=== PATIENT | male | born 1970 | race Hispanic/Latino ===

== ENCOUNTER 2017-01-12 06:02 | Inpatient (IN) | payer MEDICARE, MEDICAID ==
[2017-01-12 07:11] VITALS: BMI 20.9
[2017-01-12] MEDS ORDERED: Sodium Chloride 0.9% 1,000 ML IV STA (07:33)
--- NOTE | 2017-01-12 08:06 | ED PDOC ---
Arrival/HPI - General Chief Complaint: Abdominal Pain Time Seen by Provider: 01/12/17 06:03 Historian: Family (Sister) - History of Present Illness Narrative History of Present Illness (Text): 01/12/17 07:23 A 46 year old male, whose past medical history includes anemia, GERD, aspiration pneumonia, dyspepsia, and multiple abdominal surgery, is brought into the emergency department by sister. Sister notes early this morning, around 0400, when she came home from work the patient was in bed with a distended abdomen and vomit all over him. She notes patient did complaint of some pain last week so she was giving him soft food for the week. She denies any fever, change in bowel or other complaints at this time. PMD: Dr. Rey Time/Duration: 4-6 hours, Other Symptom Onset: Other Symptom Course: Unchanged Quality: Other Activities at Onset: Rest Context: Home Past Medical History - Provider Review Nursing Documentation Reviewed: Yes - Infectious Disease Hx of Infectious Diseases: None - Tetanus Immunization Tetanus Immunization: Unknown - Cardiac Hx Cardiac Disorders: Yes - Pulmonary Hx Respiratory Disorders: Yes Other/Comment: aspiration pneumonia - Neurological Hx Neurological Disorder: No - HEENT Hx HEENT Disorder: No - Renal Hx Renal Disorder: No - Endocrine/Metabolic Hx Endocrine Disorders: No - Hematological/Oncological Hx Blood Disorders: Yes Hx Anemia: Yes Hx Blood Transfusions: Yes Hx Blood Transfusion Reaction: (NOT KNOWN) - Integumentary Hx Dermatological Disorder: No Other/Comment: MULTIPLE SCARRING TO ABDOMINAL AREA FROM MULTIPLE ABDOMINAL SURGERIES - Musculoskeletal/Rheumatological Hx Musculoskeletal Disorders: No Hx Falls: No - Gastrointestinal Hx Gastrointestinal Disorders: Yes (post op gi lap for bowel obstruction) - Genitourinary/Gynecological Hx Genitourinary Disorders: No Hx Reproductive Disorders: No - Psychiatric Hx Psychophysiologic Disorder: Yes Hx Anxiety: Yes Hx Depression: Yes Hx Substance Use: No - Past Surgical History Past Surgical History: Non-Contributing - Surgical History Other/Comment: intestinal - Anesthesia Hx Anesthesia Reactions: No Hx Malignant Hyperthermia: No - Suicidal Assessment Feels Threatened In Home Enviroment: No Family/Social History - Physician Review Nursing Documentation Reviewed: Yes Family/Social History: Unknown Family HX Smoking Status: Never Smoked Hx Alcohol Use: No Hx Substance Use: No Hx Substance Use Treatment: No Allergies/Home Meds Allergies/Adverse Reactions: Allergies No Known Allergies Allergy (Verified 01/16/17 22:20) Review of Systems - Physician Review All systems were reviewed & negative as marked: Yes - Review of Systems Constitutional: absent: Fevers Gastrointestinal: Abdominal Pain, Vomiting, Other (distended abdomen). absent: Stool Changes Physical Exam Vital Signs Reviewed: Yes Vital Signs Temp Pulse Resp BP Pulse Ox 01/12/17 10:06 98.5 F 106 H 22 97/65 L 91 L 01/12/17 07:11 98.2 F 126 H 16 97/69 L 96 Temperature: Afebrile Blood Pressure: Hypotensive Pulse: Tachycardic Respiratory Rate: Normal Appearance: Positive for: Non-Toxic, Cachectic Pain Distress: None Mental Status: Positive for: Alert and Oriented X 3 - Systems Exam Head: Present: Atraumatic, Normocephalic Pupils: Present: PERRL Extroacular Muscles: Present: EOMI Conjunctiva: Present: Normal Mouth: Present: Moist Mucous Membranes Neck: Present: Normal Range of Motion Respiratory/Chest: Present: Clear to Auscultation, Good Air Exchange. No: Respiratory Distress, Accessory Muscle Use Cardiovascular: Present: Regular Rate and Rhythm, Normal S1, S2. No: Murmurs Abdomen: Present: Distention, Normal Bowel Sounds (tympanic ), Other (soft). No : Tenderness, Peritoneal Signs, Rebound, Guarding Back: Present: Normal Inspection Upper Extremity: Present: Normal Inspection. No: Cyanosis, Edema Lower Extremity: Present: Normal Inspection. No: Edema Neurological: Present: GCS=15, CN II-XII Intact, Speech Normal Skin: Present: Warm, Dry, Pale. No: Rashes, Normal Color Psychiatric: Present: Alert, Oriented x 3, Normal Insight, Normal Concentration Medical Decision Making ED Course and Treatment: EKG: Ordered, reviewed, and independently interpreted the EKG. Rate : 121 BPM Rhythm : Sinus tachycardia Interpretation : Normal axis, no STEMI 01/12/17 10:[address] Rey, who is aware and agrees with the plan to admit the patient to Med/Surg for a small bowel obstruction. Ginette Henson who eval the pt in the ER I have discussed the results and plan with the patient and his sister, who expresses understanding. Patient and sister given the opportunity to ask question, all questions were answered and there is agreement with the plan to be admitted to the hospital. 01/12/17 11:10 Abdomen X-ray: Creator : Florian Jonhson MD FINDINGS: BOWEL: Multiple severely dilated loops of small bowel are seen the largest measuring 7.9 cm. Findings are consistent with small bowel obstruction. There is a fluid level in the stomach. The colon is mildly dilated BONES: Normal. OTHER FINDINGS: None. IMPRESSION: Small bowel obstruction - Lab Interpretations Lab Results: 01/12/17 08:00 01/12/17 08:00 Lab Results 01/12/17 09:20: Blood Type O NEGATIVE, Antibody Screen Negative, Crossmatch See Detail, BBK History Checked Patient has bt 01/12/17 08:00: WBC 8.9 D, RBC 4.35, Hgb 13.4 L, Hct 40.4 L, MCV 92.9, MCH 30.8 , MCHC 33.2, RDW 15.0 H, Plt Count 329, MPV 9.2, Gran % 71.9 H, Lymph % (Auto) 16.8 L, [place] % (Auto) 10.9 H, Eos % (Auto) 0.2 L, Baso % (Auto) 0.2, Gran # 6.38 , Lymph # 1.5, [place] # 1.0 H, Eos # 0.0, Baso # 0.02, pO2 110 H, VBG pH 7.33, VBG pCO2 38.0 L, VBG HCO3 20.0 L, VBG Total CO2 21.2 L, VBG O2 Sat (Calc) 91.5 H , VBG Base Excess -5.4 L, VBG Potassium 4.3, Glucose 88, Lactate 1.4, FiO2 21.0 , Sodium 130.0 L, Potassium 4.1, Chloride 104.0, Carbon Dioxide 19 L, Anion Gap 12, BUN 24 H, Creatinine 0.8, Est GFR ( Amer) > 60, Est GFR (Non-Af Amer ) > 60, Random Glucose 86, Calcium 7.5 L, Total Bilirubin 0.9, AST 29, ALT 49, Alkaline Phosphatase 108, Troponin I 0.04 D, Total Protein 5.1 L, Albumin 2.1 L , Globulin 3.0, Albumin/Globulin Ratio 0.7 L, Venous Blood Potassium 4.3 I have reviewed the lab results: Yes - RAD Interpretation Radiology Orders: 01/12/17 07:33 obstructive series [ABD 2 VIEWS (FLAT/UP OR DECUB)] [RAD] Stat - Medication Orders Current Medication Orders: Discontinued Medications Benzocaine/Butamben/Tetracaine HCl (Cetacaine 14%-2%-2% 56 Gm) 1 spry TOP STAT STA Stop: 01/12/17 10:35 Last Admin: 01/12/17 10:59 Dose: 1 SPRY Calcium/Vitamin D (Oscal-D 250 Mg-125 Units Tab) 1 tab PO DAILY ETHAN Last Admin: 01/16/17 09:05 Dose: 1 TAB Home Med (*Refrigerator Open) Confirm Administered Dose 1 unit XX .STK-MED ONE Stop: 01/12/17 07:04 Home Med (*Refrigerator Open) Confirm Administered Dose 1 unit XX .STK-MED ONE Stop: 01/12/17 07:45 Home Med (*Refrigerator Open) Confirm Administered Dose 1 unit XX .STK-MED ONE Stop: 01/12/17 08:00 Home Med (*Refrigerator Open) Confirm Administered Dose 1 unit XX .STK-MED ONE Stop: 01/12/17 18:02 Home Med (*Refrigerator Open) Confirm Administered Dose 1 unit XX .STK-MED ONE Stop: 01/13/17 18:58 Home Med (*Refrigerator Open) Confirm Administered Dose 1 unit XX .STK-MED ONE Stop: 01/15/17 06:12 Home Med (*Refrigerator Open) Confirm Administered Dose 1 unit XX .STK-MED ONE Stop: 01/16/17 05:57 Hydromorphone HCl (Dilaudid) 0.5 mg IVP STAT STA Stop: 01/12/17 22:08 Last Admin: 01/12/17 22:17 Dose: 0.5 MG MAR Pain Assessment Document 01/12/17 22:17 BN (Rec: 01/12/17 22:18 BN [facility] [id number] [place] Pain Reassessment Is this a pain reassessment? No Sleep Is patient sleeping during reassessment? No Presence of Pain Presence of Pain Yes Pain Scale Used Pain Scale Used Numeric Location Pain Location Body Site Abdomen Description Description Constant Intensity of Pain at present 10 Pain Behavior Moaning Restlessness Facial Grimacing Alleviating Factors/Management Medication Techniques Alleviating Factors Medication IVP Administration Document 01/12/17 22:17 BN (Rec: 01/12/17 22:18 BN [facility] [id number]) Charges for Administration # of IVP Administrations 1 Re-Assess: DONTAE Pain Assessment Document 01/12/17 23:17 BN (Rec: 01/13/17 01:06 BN [facility] [id number]) Pain Reassessment Is this a pain reassessment? Yes Sleep Is patient sleeping during reassessment? Yes Sodium Chloride (Sodium Chloride 0.9%) 1,000 mls @ 999 mls/hr IV .Q1H1M STA Stop: 01/12/17 08:33 Last Admin: 01/12/17 08:14 Dose: 999 MLS/HR eMAR Start Stop Document 01/12/17 08:14 (Rec: 01/12/17 08:14 [id number]) Intravenous Solution Start Date 01/12/17 Start Time 08:14 Sodium Chloride (Sodium Chloride 0.9%) 1,000 mls @ 100 mls/hr IV .Q10H ETHAN Last Admin: 01/14/17 05:44 Dose: 100 MLS/HR eMAR Start Stop Document 01/14/17 05:44 BN (Rec: 01/14/17 05:44 BN [id number]) Intravenous Solution Start Date 01/14/17 Start Time 05:44 Potassium Chloride (Potassium Chloride 10 Meq/100 Ml) 100 mls @ 100 mls/hr IVPB Q2H ETHAN Stop: 01/14/17 13:29 Last Admin: 01/14/17 18:03 Dose: 100 MLS/HR eMAR Start Stop Document 01/14/17 18:03 DSZ (Rec: 01/14/17 19:04 DSZ [id number]) Intravenous Solution Start Date 01/14/17 Start Time 18:00 Dextrose/Sodium Chloride (Dextrose 5%/0.45% Ns 1000 Ml) 1,000 mls @ 100 mls/hr IV .Q10H ETHAN Last Admin: 01/15/17 11:32 Dose: 100 MLS/HR eMAR Start Stop Document 01/15/17 11:32 MB (Rec: 01/15/17 11:32 MB [facility] [id number]) Intravenous Solution Start Date 01/15/17 Start Time 11:32 End Date 01/15/17 End time 21:32 Total Infusion Time 600 Potassium Chloride (Potassium Chloride 20 Meq/100 Ml) 100 mls @ 50 mls/hr IVPB Q2 ETHAN Stop: 01/15/17 13:59 Last Admin: 01/15/17 13:11 Dose: 50 MLS/HR eMAR Start Stop Document 01/15/17 13:11 MB (Rec: 01/15/17 13:11 MB [id number]) Intravenous Solution Start Date 01/15/17 Start Time 13:11 End Date 01/15/17 End time 14:11 Total Infusion Time 60 Potassium Chloride/Dextrose (Potassium Chl 40 Meq In D5w) 1,000 mls @ 30 mls/ hr IV .Q24H ETHAN Last Admin: 01/16/17 09:05 Dose: 30 MLS/HR eMAR Start Stop Document 01/16/17 09:05 MJO (Rec: 01/16/17 09:[address]) Intravenous Solution Start Date 01/16/17 Start Time 09:05 Lidocaine HCl (Xylocaine 2% (Uro-Jet)) 1 ea TOP ONCE ONE Stop: 01/12/17 10:34 Last Admin: 01/12/17 12:14 Dose: 1 EACH Lidocaine HCl (Xylocaine 2%) Confirm Administered Dose 1 ea .ROUTE .STK-MED ONE Stop: 01/13/17 17:29 Metoclopramide HCl (Reglan) 5 mg PO ACHS [facility] Last Admin: 01/16/17 16:33 Dose: 5 MG Ondansetron HCl (Zofran Inj) 4 mg IVP ONCE ONE Stop: 01/12/17 07:34 Last Admin: 01/12/17 08:14 Dose: 4 MG IVP Administration Document 01/12/17 08:14 (Rec: 01/12/17 08:14 [id number]) Charges for Administration # of IVP Administrations 1 Ondansetron HCl (Zofran Inj) 4 mg IVP Q6 PRN PRN Reason: Nausea/Vomiting Pantoprazole Sodium (Protonix Inj) 40 mg IVP Q12 [facility] Last Admin: 01/16/17 09:05 Dose: 40 MG IVP Administration Document 01/16/17 09:05 MJO (Rec: 01/16/17 09:05 MJO [id number]) Charges for Administration # of IVP Administrations 1 - Scribe Statement The provider has reviewed the documentation as recorded by the Scribe Dimpal Bocanegra Provider Scribe Attestation: All medical record entries made by the Sindy were at my direction and personally dictated by me. I have reviewed the chart and agree that the record accurately reflects my personal performance of the history, physical exam, medical decision making, and the department course for this patient. I have also personally directed, reviewed, and agree with the discharge instructions and disposition. Disposition/Present on Arrival - Present on Arrival Any Indicators Present on Arrival: No History of DVT/PE: No History of Uncontrolled Diabetes: No Urinary Catheter: No History of Decub. Ulcer: No History Surgical Site Infection Following: None - Disposition Have Diagnosis and Disposition been Completed?: Yes Diagnosis: Small bowel obstruction Disposition: HOSPITALIZED Disposition Time: 10:32 Condition: STABLE
[2017-01-12 08:17] LABS: ADD MANUAL DIFF? NO
[2017-01-12 08:29] LABS: BASO # 0.02 K/mm3 (0.0-2.0); BASO % 0.2 % (0.0-3.0); EOS % 0.2 % (1.5-5.0); GRAN # 6.38 (1.4-6.5); GRAN % 71.9 % (50.0-68.0); HEMATOCRIT 40.4 % (42.0-52.0); LYMPH # 1.5 (1.2-3.4); LYMPH % 16.8 % (22.0-35.0); MEAN CELL VOLUME 92.9 fL (80.0-105.0); MEAN CORPUSCULAR HEMOGLOBIN 30.8 pg (25.0-35.0); MEAN CORPUSCULAR HGB CONC 33.2 g/dl (31.0-37.0); MEAN PLATELET VOLUME 9.2 fl (7.0-11.0); MONO % 10.9 % (1.0-6.0); PLATELET COUNT 329 10^3/uL (120.0-450.0); WHITE BLOOD COUNT 8.9 10^3/ul (4.5-11.0)
[2017-01-12 08:33] LABS: ALB/GLOB RATIO 0.7 (1.1-1.8); ALKALINE PHOSPHATASE 108 U/L (38-133); ALT/SGPT 49 U/L (7-56); AST/SGOT 29 U/L (15-59); BILIRUBIN,TOTAL 0.9 mg/dL (0.2-1.3); BLOOD UREA NITROGEN 24 mg/dL (7-21); CALCIUM 7.5 mg/dL (8.4-10.5); CARBON DIOXIDE 19 mmol/L (21-33); CHLORIDE 104 mmol/L (95-110); GFR AFRICAN-AMERICAN > 60; GLUCOSE,RANDOM 86 mg/dL (70-110); POTASSIUM 4.1 mmol/L (3.6-5.0); SODIUM 131 mmol/L (132-148); TOTAL PROTEIN 5.1 g/dL (5.8-8.3); VENOUS BLOOD GAS BASE EXCESS -5.4 mmol/L (0.0-2.0); VENOUS BLOOD PH 7.33 (7.32-7.43)
--- NOTE | 2017-01-12 08:43 | CP.PCM.CON ---
History of Present Illness - History of Present Illness History of Present Illness: Consult Surgery Note for Dr. Henson HPI: 46 yo M w/ PMHx of multiple abdominal sx and anemia, GERD, aspiration pneumonia, presents with several days of abdominal pain, and N/V. Pt is a poor historian, giving inconsistent one word answers to questions intermittently, and not oriented to time. As per ED note, sister reported abdominal pain complaint for one week, for which pt was given a soft food diet, and at around 400 today, pt had distended abdomen with vomit. Denied fever, BM changes, SOB. Pt had been through similar episodes before. PMD: Dr. Rey PMHx: anemia, GERD, aspiration pneumonia PSxhx: ileoanal anastomosis, colon and sm bowel resection (08/2016), small bowel resection (03/2013), subtotal colectomy Allergies: NKDA Social: denies ETOH, smoking, and illicit drugs. Lives with sister. Review of Systems - Constitutional Constitutional: absent: Fever - Cardiovascular Cardiovascular: absent: Chest Pain, Dyspnea - Respiratory Respiratory: absent: Dyspnea - Gastrointestinal Gastrointestinal: Abdominal Pain Past Patient History - Infectious Disease Hx of Infectious Diseases: None - Tetanus Immunizations Tetanus Immunization: Unknown - Past Social History Smoking Status: Never Smoked - CARDIAC Hx Cardiac Disorders: Yes - PULMONARY Hx Respiratory Disorders: Yes Other/Comment: aspiration pneumonia - NEUROLOGICAL Hx Neurological Disorder: No - HEENT Hx HEENT Problems: No - RENAL Hx Chronic Kidney Disease: No - ENDOCRINE/METABOLIC Hx Endocrine Disorders: No - HEMATOLOGICAL/ONCOLOGICAL Hx Blood Disorders: Yes Hx Anemia: Yes Hx Blood Transfusions: Yes Hx Blood Transfusion Reaction: (NOT KNOWN) - INTEGUMENTARY Hx Dermatological Problems: No Other/Comment: MULTIPLE SCARRING TO ABDOMINAL AREA FROM MULTIPLE ABDOMINAL SURGERIES - MUSCULOSKELETAL/RHEUMATOLOGICAL Hx Musculoskeletal Disorders: No Hx Falls: No - GASTROINTESTINAL Hx Gastrointestinal Disorders: Yes (post op gi lap for bowel obstruction) - GENITOURINARY/GYNECOLOGICAL Hx Genitourinary Disorders: No Hx Reproductive Disorders: No - PSYCHIATRIC Hx Psychophysiologic Disorder: Yes Hx Anxiety: Yes Hx Depression: Yes Hx Substance Use: No - SURGICAL HISTORY Other/Comment: intestinal - ANESTHESIA Hx Anesthesia Reactions: No Hx Malignant Hyperthermia: No Meds Allergies/Adverse Reactions: Allergies Allergy/AdvReac Type Severity Reaction Status Date / Time No Known Allergies Allergy Verified 01/12/17 07:11 Physical Exam - Head Exam Head Exam: NORMAL INSPECTION - Eye Exam Eye Exam: EOMI - Respiratory Exam Respiratory Exam: Clear to Auscultation Bilateral, NORMAL BREATHING PATTERN - Cardiovascular Exam Cardiovascular Exam: Tachycardia, RRR - GI/Abdominal Exam GI & Abdominal Exam: Diminished Bowel Sounds, Distended, Soft. absent: Tenderness Additional comments: surgical abdominal scar - Neurological Exam Neurological exam: Alert Additional comments: oriented to self and place, not time - Skin Skin Exam: Intact, Warm Results - Vital Signs Recent Vital Signs: Last Vital Signs Temp 98.2 F 01/12/17 07:11 Pulse 126 H 01/12/17 07:11 Resp 16 01/12/17 07:11 BP 97/69 L 01/12/17 07:11 Pulse Ox 96 01/12/17 07:11 - Labs Result Diagrams: 01/12/17 08:00 01/12/17 08:00 Labs: Laboratory Results - last 24 hr 01/12/17 08:00 WBC 8.9 D RBC 4.35 Hgb 13.4 L Hct 40.4 L MCV 92.9 MCH 30.8 MCHC 33.2 RDW 15.0 H Plt Count 329 MPV 9.2 Gran % 71.9 H Lymph % (Auto) 16.8 L [place] % (Auto) 10.9 H Eos % (Auto) 0.2 L Baso % (Auto) 0.2 Gran # 6.38 Lymph # 1.5 [place] # 1.0 H Eos # 0.0 Baso # 0.02 Assessment & Plan - Assessment and Plan (Free Text) Plan: 46 yo M w/ PMHx of multiple abdominal sx and GERD, presents with abdominal pain w/N/V Abdominal obstructive series: multiple severely dilated loops of small bowel IVF NPO protonix advise sigmoidoscopy to GI d/w Dr. Henson
[2017-01-12 08:46] LABS: TROPONIN I 0.04 ng/mL
[2017-01-12] MEDS ORDERED: Lidocaine 2% Jelly (Uro-Jet) TOP ONE (10:33)
[2017-01-12] MEDS ORDERED: Lidocaine 4% 50 mL Topical Sol (OR USE) TOP STA (10:33)
[2017-01-12] MEDS ORDERED: Benzocaine/Butamben/Tetracai 14-2-2% TOP Spray TOP STA (10:34)
--- NOTE | 2017-01-12 11:09 | RAD ---
HISTORY: abd pain COMPARISON: No prior. FINDINGS: BOWEL: Multiple severely dilated loops of small bowel are seen the largest measuring 7.9 cm. Findings are consistent with small bowel obstruction. There is a fluid level in the stomach. The colon is mildly dilated BONES: Normal. OTHER FINDINGS: None. IMPRESSION: Small bowel obstruction
--- NOTE | 2017-01-12 12:06 | CP.PCM.PCO ---
Physician Communication Note - Physician Communication Note Physician Communication Note: Dx:Partial Ileo-sigmoid obstr/ventral hernia-Need GI Rval(Sigmoidoscopy)
--- NOTE | 2017-01-12 17:43 | CON ---
DATE: 01/12/2017 Seen and examined at the bedside earlier this afternoon. The chart was reviewed. REQUEST FOR CONSULT: Small-bowel obstruction. HISTORY OF PRESENT ILLNESS: This is a 46-year-old male with a past medical history of recurrent harvey l obstruction, multiple abdominal surgeries. Recently had a laparotomy with colon and small-bowel re section with ileoanal end-to-end anastomosis for colonic obstruction. He has a history of developmental delay. He came to the hospital with complaints of abdominal pain f or the past several days. His sister is currently at the bedside and reports that the patient was pat ving abdominal pain for 1 week. The patient was moving his bowels according to his sister, but abdom en was becoming distended and having abdominal pain, nausea and vomiting. She said she came home fro m work around 4:30 p.m. The patient was in bed and saw that he had vomited. No complaints of any fe russell or chills. The patient is a poor historian so information was obtained from the patient's chart and his sister at the bedside and nursing staff. The sister states that the patient has been consumi ng soft foods for the week. PAST MEDICAL HISTORY: Peptic ulcer disease, developmental delay, GERD, chronic anemia, gastric bypas s, colostomy with ileostomy with reversal and multiple exploratory laparoscopies, aspiration pneumoni a, recent surgery was ileoanal anastomosis colon and small-bowel resection on 08/2016. He also had a small bowel resection in 2012 and subtotal colectomy. FAMILY HISTORY: Noncontributory at this time. ALLERGIES: No known drug allergies. SOCIAL HISTORY: Denies EtOH, substance abuse or smoking. MEDICATIONS: Reviewed as per MAR. REVIEW OF SYSTEMS: Systems were reviewed with positive findings, see HPI. VITAL SIGNS: His temperature is 98.5, blood pressure is 97/65, pulse 106, respirations 22. LABORATORY: WBC is 8.9, 13.4, hematocrit is 40.4, platelets is 329. Sodium 131, K is 4.1, BUN is 24, creatinine is 0.8. Total bilirubin 0.9, AST 29, ALT 49 and alkaline phosphatase is 108. DIAGNOSTICS: The patient had an abdominal x-ray on admission and it shows severely dilated loops of the small bowel, largest measuring 7.9 cm. Findings are consistent with small-bowel obstruction. Th ere is a fluid level in the stomach. The colon is mildly dilated. Impression: Small-bowel obstruct ion. PHYSICAL EXAMINATION: HEENT: Sclerae are anicteric. Nares: Patient has NG tube. NECK: Supple. CARDIAC: S1, S2. LUNGS: Clear. ABDOMEN: With hypoactive bowel sounds, mildly distended with diffuse tenderness. No rebound or guar ding. EXTREMITIES: Positive pedal pulses, no edema. NEUROLOGIC: The patient is awake and alert. ASSESSMENT: This is a 46-year-old male with history of multiple abdominal surgery and recurrent smal l-bowel obstruction, came to the Emergency Room with complaints of nausea, vomiting and abdominal torrie n, status post x-ray reporting small-bowel obstruction. Other comorbidities are chronic anemia, his hemoglobin is stable right now, no overt GI bleed and developmental delay. PLAN: Continue NG tube to low intermittent suction. Monitor I and O. Continue IV fluids for hydrat ion and continue GI prophylaxis. He is on Protonix IV q. 12. Continue surgical followup and ? flex sigmoidoscopy. Thank you for this consult and for allowing us to participate in your patient's care. We will make anibal bynum recommendations based upon patient's clinical course. The patient was seen and case discussed with Dr. Davies. Samantha MONTES cc: [id number] TT: 01/12/2017 17:42:42 Confirmation # [id number] Dictation # [id number] tatiana
[2017-01-12 17:44] LABS: URINE BILIRUBIN SMALL (NEGATIVE); URINE BLOOD NEGATIVE (NEGATIVE); URINE GLUCOSE (UA) NEGATIVE (NEGATIVE); URINE KETONE 15 mg/dL (NEGATIVE); URINE LEUKOCYTE ESTERASE NEGATIVE Leu/uL (NEGATIVE); URINE PROTEIN TRACE mg/dL (<30 mg/dL)
[2017-01-12 18:16] LABS: URINE APPEARANCE CLEAR (CLEAR); URINE COLOR DARK YELLOW (YELLOW)
[2017-01-12 18:52] LABS: URINE BACTERIA LARGE (NEG); URINE OTHER CRYSTALS BILI /hpf; URINE RBC 0 - 2 /hpf (0-2); URINE WBC 0 - 2 /hpf (0-6)
--- NOTE | 2017-01-12 19:00 | CARD ---
APPROVED REPORT EKG Measurement Heart [id number] <Conclusion> Sinus tachycardia Septal infarct, age undetermined Lateral infarct, age undetermined Inferior infarct, age undetermined Abnormal ECG
[2017-01-12] MEDS ORDERED: HYDROmorphone 0.5 mg/0.5 ml ISec IVP STA (22:07)
--- NOTE | 2017-01-13 09:12 | CP.PCM.PN ---
Subjective - Date & Time of Evaluation Date of Evaluation: 01/13/17 Time of Evaluation: 07:00 - Subjective Subjective: SURGERY NOTE FOR DR. DMITRIY HENSON Pt seen and evaluated at the bedside. Pt has c/o of abdominal pain, but unable to conduct review of systems due to pt's inconsistent answers. NG tube in and afebrile overnight. Objective - Vital Signs/Intake and Output Vital Signs (last 24 hours): Temp Pulse Resp BP Pulse Ox 97.3 F L 116 H 20 107/62 94 L 01/13/17 07:30 01/13/17 07:30 01/13/17 07:30 01/13/17 07:30 01/13/17 07:30 Intake and Output: 01/13/17 01/13/17 06:59 18:59 Intake Total 0 2400 Output Total 0 0 Balance 0 2400 - Medications Medications: Current Medications Sodium Chloride (Sodium Chloride 0.9%) 1,000 mls @ 100 mls/hr IV .Q10H ETHAN Ondansetron HCl (Zofran Inj) 4 mg IVP Q6 PRN PRN Reason: Nausea/Vomiting Pantoprazole Sodium (Protonix Inj) 40 mg IVP Q12 ETHAN Last Admin: 01/12/17 21:10 Dose: 40 mg - Additional Findings Additional findings: - Head Exam Head Exam: NORMAL INSPECTION, NG tube in place - Eye Exam Eye Exam: EOMI - Respiratory Exam Respiratory Exam: Clear to Auscultation Bilateral, NORMAL BREATHING PATTERN - Cardiovascular Exam Cardiovascular Exam: Tachycardia, RRR - GI/Abdominal Exam GI & Abdominal Exam: Diminished Bowel Sounds, Distended, Soft. absent: Tenderness Additional comments: surgical abdominal scar - Neurological Exam Neurological exam: Alert Additional comments: oriented to self and place, not time - Skin Skin Exam: Intact, Warm Assessment and Plan - Assessment and Plan (Free Text) Assessment: 46 yo M w/ PMHx of multiple abdominal sx and GERD, initially presents with abdominal pain w/N/V. Abdominal obstructive series: multiple severely dilated loops of small bowel. Likely partial small bowel obstruction. Plan: NG tube draining 700 cc of dark brown fluid since 9AM IVF NPO protonix Flex sigmoidoscopy this PM to be d/w Dr. Henson
[2017-01-13] MEDS: Sodium Chloride 0.9% 1,000 ML IV SCH ×2 (09:17→21:13)
--- NOTE | 2017-01-13 11:22 | HP ---
The patient was seen in the Emergency Room on 01/12/17. CHIEF COMPLAINT: Abdominal pain, nausea and vomiting. HISTORY OF PRESENT ILLNESS: The patient is a 46-year-old, my private patient, with past medical history of anemia, GERD, aspiration pneumonia, dyspepsia, multiple abdominal surgeries, is mentally retarded, brought to the Emergency Room Department by the sister. Sister was working overnight and when she came home, her brother was sitting on the floor and was vomiting and was involved with a distended abdomen and according to her, the patient had some pain the last week also and she was getting him soft food for the week. No fever, no chills actively. Iman called me yesterday early in the morning about the patient's condition and I told her take to the Emergency Room and I saw him in the Emergency Room. He was having distended abdomen and was constantly vomiting. PAST MEDICAL HISTORY: History of aspiration pneumonia, history of anemia, multiple blood transfusions, multiple scarring on abdominal wall from multiple abdominal surgeries by Dr. Henson, multiple times bowel obstruction, anxiety, depression. The patient is mentally retarded. FAMILY HISTORY: Unknown because child was adobted HABITS: Never smoked, no drugs, no ethanol. ALLERGIES: The patient is not allergic with any medication. REVIEW OF SYSTEMS: The patient was seen and examined on 01/12/17 in the Emergency Room, still vomiting, abdomen distended. No fever, no chills. The patient is a poor historian, but no swelling of the legs. PHYSICAL EXAMINATION: VITAL SIGNS: Temperature 98.2, pulse 126, respiratory rate 16, blood pressure 97/69, pulse oximetry 96. HEENT: Normocephalic, atraumatic. Eyes: PERRLA. Extraocular muscles intact. Conjunctivae clear. Nose patent. NECK: Supple. No carotid bruit, JVD or thyromegaly. CHEST: Bilaterally symmetrical. HEART: S1, S2 positive. LUNGS: Clear to auscultation. Good air exchange. ABDOMEN: Distended, tympanic bowel sounds, soft. No signs of rebound or guarding. EXTREMITIES: No edema, no cyanosis. NEUROLOGIC: The patient is awake, alert and moving all 4 extremities. Oriented x 3. LABORATORY DATA: White blood cells 8.9, hemoglobin 13.4, hematocrit 40.4, and platelets 329. Sodium 131, potassium 4.1, BUN 24, creatinine 0.8, glucose 86. ASSESSMENT AND PLAN: The patient is a 46-year-old male with anemia, hyponatremia, looks like dehydrated, came with small bowel obstruction, history of peptic ulcer disease, developmental delay, gastroesophageal reflux disease, chronic anemia, gastric bypass, colostomy with ileostomy with reversal. Multiple exploratory laparotomies, history of aspiration pneumonia, recent surgery was ileal end anastomosis of the colon and small bowel resection on 2015. He also had small bowel resection in 2012 and subtotal colectomy, history of chronic constipation. We admitted the patient, called gastroenterology and surgical consult. History of anemia, multiple times blood transfusion and iron infusion, but right now, hemoglobin is stable. Continue nasogastric tube to low intermittent suction, monitoring intakes and outputs. Continue IV fluid for hydration. Looks like he is a little be dehydrated. Gastrointestinal prophylaxis. Continue Protonix IV q. 12 hours. We will wait for surgical input. May be need flexible sigmoidoscopy. Appreciate JYOTI Fuller''s input. Appreciate Dr. Andres Henson' communication report. According to him, partial ileosigmoid obstruction/ventral hernia, need gastroenterology reevaluation, sigmoidoscopy. The patient is seen by Genaro Bowen who was working with Dr. Andres Henson. We will follow up. Meme Rey MD cc: [id number] TT: 01/13/2017 11:21:23 tn MTDD
--- NOTE | 2017-01-13 15:59 | CP.PCM.PCO ---
Physician Communication Note - Physician Communication Note Physician Communication Note: NG Repositioned/Improving/Flex sigmoid today
[2017-01-13] MEDS ORDERED: Lidocaine 2% Jelly (30 ml) ONE (17:28)
[2017-01-13] MEDS ORDERED: HYDROmorphone 0.5 mg/0.5 ml ISec IVP PRN (18:25)
--- NOTE | 2017-01-14 01:21 | PN ---
DATE: 01/13/2017 ADDENDUM This is an addendum. This patient underwent a flexible sigmoidoscopic examination today. Renal anas tomosis was noticed. anastomosis was noted. Anastomotic opening was impacted with stool, whic h was removed with lavage. The arteries appear to be stenosed. The scope could not be advanced thro ugh the opening. There were ulcerations noticed at the margins of the stricture. The patient was co mpletely decompressed. RECOMMENDATION: The patient may benefit from dilation of the stricture. However, there is a concern because of the ulcerations of the margin. PLAN: Discontinue the NG tube and start on a liquid diet. The patient will discuss with the surgeon regarding the timing of the dilation of the stricture meanwhile. Thank you very much for allowing us to participate in the care of the patient. Cristiane Davies MD cc: [id number] TT: 01/14/2017 01:21:09 Confirmation # [id number] Dictation # [id number] tatiana
--- NOTE | 2017-01-14 01:57 | PN ---
DATE: 01/13/2017 SUBJECTIVE: The patient is a 46-year-old male. The patient is seen and examined at the bedside. Has NG tube, but still complaining about abdominal pain. No fever, no chills. No headache, no dizziness. The patient is a poor historian. PHYSICAL EXAMINATION: VITAL SIGNS: Temperature 97.3, pulse 116, blood pressure 107/62, respiratory rate 20. HEENT: Head normocephalic, atraumatic. Eyes: PERRLA, extraocular muscles intact, conjunctivae clear. Eyelids: Unremarkable. Nose: Patent. Mucous membranes are moist. NECK: Supple. No carotid bruit, JVD, or thyromegaly. CHEST: Bilaterally symmetrical. HEART: S1, S2 positive. LUNGS: Clear to auscultation. ABDOMEN: Soft, bowel sounds present, tender. EXTREMITIES: No edema, no cyanosis. NEUROLOGIC: The patient is awake, alert, and moving all 4 extremities. MEDICATIONS: Dilaudid, Protonix, Zofran. LABORATORY DATA: Sodium 8.9, hemoglobin 13.4, hematocrit 40.4, platelets 329. Sodium 131, potassium 4.1, BUN 24, creatinine 0.8, calcium 7.9. ASSESSMENT AND PLAN: The patient is a 46-year-old male with anemia, hyponatremia, hypocalcemia, proteinuria, ketonuria. Went for a sigmoidoscopy, came with small-bowel obstruction. Sigmoidoscopy shows stricture and ulceration at the anastomotic site. I reviewed Dr. Peace's communication report. According to him, NG tube repositioning improving. The patient is mentally retarded, history of multiple trauma, aspiration pneumonia, multiple abdominal surgeries, gastroesophageal reflux disease and dyspepsia, multiple severely dilated loops of small bowel, likely partial obstruction. NG tube is still draining 700 mL of dark brownish liquid since 9:00 a.m. Getting IV fluid , n.p.o., getting Protonix. Reviewed Dr. Henson' notes. GI and DVT prophylaxis. Repeat labs. We will follow up. Meme Rey MD cc: [id number] TT: 01/14/2017 01:56:41 Confirmation # [id number] Dictation # [id number] [facility]
[2017-01-14] MEDS: Sodium Chloride 0.9% 1,000 ML IV SCH (05:44)
--- NOTE | 2017-01-14 08:41 | CP.PCM.PN ---
Subjective - Date & Time of Evaluation Date of Evaluation: 01/14/17 Time of Evaluation: 07:40 - Subjective Subjective: SURGERY NOTE FOR DR. DMITRIY HENSON Pt seen and evaluated at the bedside. Pt denies pain and reports passing gas overnight. NG tube in and afebrile overnight. Objective - Vital Signs/Intake and Output Vital Signs (last 24 hours): Temp Pulse Resp BP Pulse Ox 97.2 F L 105 H 20 99/60 L 95 01/14/17 08:37 01/14/17 08:37 01/14/17 08:37 01/14/17 08:37 01/14/17 08:37 Intake and Output: 01/14/17 01/14/17 06:59 18:59 Intake Total 2400 Output Total 841 Balance 1559 - Medications Medications: Current Medications Hydromorphone HCl (Dilaudid) 0.25 mg IVP Q6H PRN PRN Reason: Pain, severe (8-10) Sodium Chloride (Sodium Chloride 0.9%) 1,000 mls @ 100 mls/hr IV .Q10H [facility] Last Admin: 01/14/17 05:44 Dose: 100 mls/hr Ondansetron HCl (Zofran Inj) 4 mg IVP Q6 PRN PRN Reason: Nausea/Vomiting Pantoprazole Sodium (Protonix Inj) 40 mg IVP Q12 [facility] Last Admin: 01/13/17 21:12 Dose: 40 mg - Constitutional Appears: Non-toxic, No Acute Distress - Head Exam Head Exam: NORMAL INSPECTION - Eye Exam Eye Exam: EOMI, Normal appearance - ENT Exam ENT Exam: Mucous Membranes Moist, Normal Exam Additional comments: NG tube in place - Respiratory Exam Respiratory Exam: NORMAL BREATHING PATTERN - Cardiovascular Exam Cardiovascular Exam: Tachycardia, REGULAR RHYTHM - GI/Abdominal Exam GI & Abdominal Exam: Soft. absent: Distended, Tenderness Additional comments: surgical abdominal scar - Neurological Exam Neurological Exam: Alert, Awake - Skin Skin Exam: Intact, Normal Color Assessment and Plan - Assessment and Plan (Free Text) Plan: NG tube draining 140 cc of light brown fluid since 7PM the day prior, possibly purulent NG on suction IVF NPO protonix Flex sigmoidoscopy 01/13/2017: stricture and ulcerations at anastamosis d/w Dr. Henson
[2017-01-14 09:20] LABS: HEMATOCRIT 31.6 % (42.0-52.0); MEAN CELL VOLUME 91.9 fL (80.0-105.0); MEAN CORPUSCULAR HEMOGLOBIN 30.2 pg (25.0-35.0); MEAN CORPUSCULAR HGB CONC 32.9 g/dl (31.0-37.0); MEAN PLATELET VOLUME 9.1 fl (7.0-11.0); RED CELL DISTRIBUTION WIDTH 15.2 % (11.5-14.5); WHITE BLOOD COUNT 4.9 10^3/ul (4.5-11.0)
[2017-01-14 09:28] LABS: BLOOD UREA NITROGEN 19 mg/dL (7-21); CALCIUM 7.3 mg/dL (8.4-10.5); CARBON DIOXIDE 17 mmol/L (21-33); CHLORIDE 112 mmol/L (98-107); GFR AFRICAN-AMERICAN > 60; GLUCOSE,RANDOM 61 mg/dL (70-110); POTASSIUM 3.4 mmol/L (3.6-5.0); SODIUM 137 mmol/L (132-148)
--- NOTE | 2017-01-14 11:55 | CP.PCM.PCO ---
Physician Communication Note - Physician Communication Note Physician Communication Note: Sigmoid stricture-? Stent/Cont NGT
--- NOTE | 2017-01-14 12:10 | RAD ---
HISTORY: SBO COMPARISON: 01/12/2017 FINDINGS: BOWEL: There has been significant improvement in the small bowel obstruction seen previously. There are persistently dilated loops of large and small bowel. BONES: Normal. OTHER FINDINGS: None. IMPRESSION: There has been significant improvement in the small bowel obstruction seen previously. There are persistently dilated loops of large and small bowel.
[2017-01-14] MEDS: Dextrose 5%/0.45% NS 1,000 ML IV SCH (15:43)
[2017-01-14] MEDS: Potassium Chloride 10 mEq 100 ML IVPB SCH ×2 (15:44→18:03)
--- NOTE | 2017-01-15 00:29 | PN ---
DATE: 01/14/2017 The patient is a 46-year-old male. SUBJECTIVE: The patient seen and examined on the bedside. He looks a little bit better. Still having NG tube. Abdominal distention is getting better. Still does not have bowel sounds. The patient is not a very good historian. He does not look like he has a fever. PHYSICAL EXAMINATION: VITAL SIGNS: Temperature 97.4, pulse 104, blood pressure 97/56, respiratory rate 18. HEENT: Head normocephalic, atraumatic. Eyes, PERRLA. Extraocular muscles are intact. Conjunctivae are clear. Nose patent. Having NG tube. Mucous membranes are moist. NECK: Supple. No carotid bruit, JVD, or thyromegaly. CHEST: Bilaterally symmetrical. HEART: S1, S2 positive. LUNGS: Clear to auscultation. ABDOMEN: Soft. Nontender, but bowel sound is negative. Multiple scars of surgery. EXTREMITIES: No edema. No cyanosis. NEUROLOGIC: The patient is awake, alert, follows simple commands. MEDICATIONS: Dextrose, Dilaudid, Protonix, and Zofran. LABORATORY DATA: White blood cells 4.9, hemoglobin 10.4, hematocrit 31.6, platelets 243. Sodium 137, potassium 3.4, BUN 11, creatinine 1.9, calcium 7.3. ASSESSMENT AND PLAN: The patient is a 46-year-old male with anemia, history of hyponatremia and got better, hypokalemia, hypocalcemia, proteinuria, ketonuria, came with abdominal pain, nausea, vomiting. NG tube is draining 140 mL of light brown fluid since 7 p.m. of the day prior. Possibly purulent NG on suction. cot. Protonix. Flex sigmoidoscopy done 01/13/2017 showed ulcer and stricture anastomosis site, as per surgery. I appreciated Dr. Peace's communication report. According to him, continue NG tube. The patient is seen by Dr. Davies, manager emergency department. According to Dr. Davies, the patient can get benefit with dilatation of stricture; however, there is a concern because of the ulceration at margin. The patient is mentally retarded, history of severe anemia, status post blood transfusion, status multiple abdominal surgeries, multiple times intestinal obstruction. Continue present treatment. Gastrointestinal and deep venous thrombosis prophylaxis. Repeat labs. We will follow up. Meme Rey MD cc: [id number] TT: 01/15/2017 00:28:35 Confirmation # [id number] Dictation # [id number] tn MTDD
--- NOTE | 2017-01-15 03:18 | PN ---
DATE: 01/14/2017 SUBJECTIVE: This patient was seen and evaluated earlier, and discussed with Dr. Andres Henson. T he patient underwent a flexible sigmoidoscopy examination yesterday. He was found to have a strictur e at the ileal anastomotic area. The scope could not be passed through that. There were some staple lines and ulcerations seen at that area. The patient still has an NG tube draining a purulent brown material. The patient is n.p.o. PHYSICAL EXAMINATION: VITAL SIGNS: Temperature is 97.4, pulse of 104, blood pressure is 97/56. HEENT: Atraumatic, anicteric. NECK: Supple. HEART: S1, S2 heard. LUNGS: Bilateral air entry present. ABDOMEN: Soft. There is no mass palpable. EXTREMITIES: No tenderness. LABORATORY DATA: Hemoglobin 10.4, hematocrit 31.6, WBC 4.9, platelets 243. Sodium 147, potassium 3. 7. IMPRESSION: This 46-year-old patient, mentally challenged, admitted with small bowel distended intes tinal loops suggestive of intestinal obstruction. The patient had a flexible sigmoidoscopy, that marcia ws an anastomotic stricture with ulcerations. The patient did have multiple gastric surgeries and __ ___. I discussed with Dr. Henson. The plan is to consider order to discontinue the NG tube when t he output decreases and start him on clear liquid diet, wait for gentle bowel clearance and then cons ider wire-guided balloon dilation. This stricture is too low to consider any stent placement, and al so more of the patient's staple line is seen at the margins that could complicate stent placement, wh ich is such a low anastomosis area. Thank you very much for allowing us to participate in the care of the patient. Cristiane Davies MD cc: [id number] TT: 01/15/2017 03:18:25 Confirmation # [id number] Dictation # [id number] vn
[2017-01-15] MEDS: Dextrose 5%/0.45% NS 1,000 ML IV SCH ×2 (05:30→11:32)
[2017-01-15 07:26] LABS: ADD MANUAL DIFF? NO
[2017-01-15 07:34] LABS: BASO # 0.01 K/mm3 (0.0-2.0); BASO % 0.2 % (0.0-3.0); EOS # 0.1 (0.0-0.7); EOS % 2.1 % (1.5-5.0); GRAN # 3.04 (1.4-6.5); GRAN % 70.6 % (50.0-68.0); HEMATOCRIT 27.7 % (42.0-52.0); LYMPH # 0.7 (1.2-3.4); LYMPH % 16.9 % (22.0-35.0); MEAN CELL VOLUME 90.2 fL (80.0-105.0); MEAN CORPUSCULAR HEMOGLOBIN 30.6 pg (25.0-35.0); MEAN CORPUSCULAR HGB CONC 33.9 g/dl (31.0-37.0); MEAN PLATELET VOLUME 8.7 fl (7.0-11.0); MONO # 0.4 (0.1-0.6); MONO % 10.2 % (1.0-6.0); PLATELET COUNT 207 10^3/uL (120.0-450.0); RED CELL DISTRIBUTION WIDTH 14.9 % (11.5-14.5); WHITE BLOOD COUNT 4.3 10^3/ul (4.5-11.0)
[2017-01-15 08:07] LABS: ALB/GLOB RATIO 0.6 (1.1-1.8); ALKALINE PHOSPHATASE 55 U/L (38-133); ALT/SGPT 38 U/L (7-56); AST/SGOT 24 U/L (15-59); BILIRUBIN,TOTAL 0.4 mg/dL (0.2-1.3); BLOOD UREA NITROGEN 10 mg/dL (7-21); CARBON DIOXIDE 24 mmol/L (21-33); CHLORIDE 109 mmol/L (98-107); GFR AFRICAN-AMERICAN > 60; GLUCOSE,RANDOM 124 mg/dL (70-110); POTASSIUM 3.1 mmol/L (3.6-5.0); SODIUM 134 mmol/L (132-148); TOTAL PROTEIN 3.6 g/dL (5.8-8.3)
--- NOTE | 2017-01-15 08:24 | CP.PCM.PCO ---
Physician Communication Note - Physician Communication Note Physician Communication Note: DC NGT/Start liquids-Sigmoid dilation next Thursday
[2017-01-15] MEDS: Potassium Chloride 20 mEq 100 ML IVPB SCH ×2 (09:26→13:11)
--- NOTE | 2017-01-15 12:28 | CP.PCM.PN ---
Subjective - Date & Time of Evaluation Date of Evaluation: 01/15/17 Time of Evaluation: 10:30 - Subjective Subjective: URGERY NOTE FOR DR. DMITRIY HENSON Pt seen and evaluated at the bedside. Pt denies pain and reports BM this AM. Reports no N/V. NG tube is removed and afebrile overnight. Objective - Vital Signs/Intake and Output Vital Signs (last 24 hours): Temp Pulse Resp BP Pulse Ox 97.3 F L 63 20 96/62 L 96 01/15/17 08:37 01/15/17 08:37 01/15/17 08:37 01/15/17 08:37 01/15/17 08:37 Intake and Output: 01/15/17 01/15/17 06:59 18:59 Intake Total 1200 Output Total 500 Balance 1200 -500 - Medications Medications: Current Medications Hydromorphone HCl (Dilaudid) 0.25 mg IVP Q6H PRN PRN Reason: Pain, severe (8-10) Dextrose/Sodium Chloride (Dextrose 5%/0.45% Ns 1000 Ml) 1,000 mls @ 100 mls/hr IV .Q10H [facility] Last Admin: 01/15/17 11:32 Dose: 100 mls/hr Potassium Chloride (Potassium Chloride 20 Meq/100 Ml) 100 mls @ 50 mls/hr IVPB Q2 [facility] Stop: 01/15/17 13:59 Last Admin: 01/15/17 09:26 Dose: 50 mls/hr Metoclopramide HCl (Reglan) 5 mg PO ACHS [facility] Last Admin: 01/15/17 11:06 Dose: 5 mg Ondansetron HCl (Zofran Inj) 4 mg IVP Q6 PRN PRN Reason: Nausea/Vomiting Pantoprazole Sodium (Protonix Inj) 40 mg IVP Q12 [facility] Last Admin: 01/15/17 09:21 Dose: 40 mg - Labs Labs: 01/15/17 07:00 01/15/17 07:00 - Additional Findings Additional findings: - Constitutional Appears: Non-toxic, No Acute Distress - Head Exam Head Exam: NORMAL INSPECTION - Eye Exam Eye Exam: EOMI, Normal appearance - ENT Exam ENT Exam: Mucous Membranes Moist, Normal Exam - Respiratory Exam Respiratory Exam: NORMAL BREATHING PATTERN - Cardiovascular Exam Cardiovascular Exam: Tachycardia, REGULAR RHYTHM - GI/Abdominal Exam GI & Abdominal Exam: Soft. absent: Distended, Tenderness Additional comments: surgical abdominal scar - Neurological Exam Neurological Exam: Alert, Awake - Skin Skin Exam: Intact, Normal Color Assessment and Plan - Assessment and Plan (Free Text) Assessment: 46 yo M w/ PMHx of multiple abdominal sx and GERD, initially presents with abdominal pain w/N/V. Abdominal obstructive series: multiple severely dilated loops of small bowel. Likely partial small bowel obstruction. Plan: NG tube removed this AM IVF Liquid diet protonix Flex sigmoidoscopy 01/13/2017: stricture and ulcerations at anastamosis Ab XR from 01/14/2017 shows improvement of SBO, though dilated loops of small and large bowel seen Possible wire guided balloon dilation for 01/20/2017 hypokalemia (3.1) repleted To be d/w Dr. Henson
--- NOTE | 2017-01-15 13:11 | PN ---
DATE: 01/15/2017 Seen and examined at the bedside earlier today. NG tube is out. The patient is reported to be havin g bowel movements, liquid brown. His NG tube was discontinued earlier today. The patient denies leah sea, vomiting. He denies abdominal pain. He was started on a clear liquid breakfast. VITAL SIGNS: Temperature is 97.3, blood pressure is 96/62, pulse 63, respirations 20, 96 on room air . He had an abdominal x-ray yesterday which is showing significant improvement in the small bowel obstr uction previously seen. Presently dilated loops of large and small bowel. PHYSICAL EXAMINATION: HEENT: Sclerae anicteric. NECK: Supple. CARDIAC: S1, S2. LUNGS: With decreased breath sounds but good aeration. ABDOMEN: With bowel sounds. It is soft, nontender on palpation. EXTREMITIES: No edema. ASSESSMENT: This is a 46-year-old male with a history of mentally challenged, admitted with small rachael wel obstruction with distended intestinal loops, status post flexible sigmoidoscopy which revealed an astomotic stricture with ulcerations. The patient does have a history of multiple gastric surgeries. PLAN: Started on a clear liquid diet. Considering wire guided balloon dilatation. He is on IV flui ds for hydration. The patient has been started on Reglan. Continue PPI. He is on Protonix IV q. 12 , and he is hypokalemic and receiving potassium replacement. LABORATORY DATA: Sodium 134, K is 3.1, BUN 10, creatinine 0.6. LFTs are within normal limits. Mag level is 2.0. WBC is 4.3, H and H are 9.4 and 27.7, platelets are 207. The patient was seen and case discussed with Dr. Davies. Samantha MONTES cc: [id number] TT: 01/15/2017 13:11:23 Confirmation # [id number] Dictation # [id number] tatiana
[2017-01-16] MEDS ORDERED: Potassium Chl 40mEq & D5W 1,000 ML IV SCH (00:30)
--- NOTE | 2017-01-16 04:40 | PN ---
DATE: 01/16/2017 The patient is a 46-year-old male. SUBJECTIVE: The patient was seen and examined on the bedside. NG tube is out. Liquid diet offered. Feeling better. Has had at least 3-4 bowel movements. Liquid brown. No nausea or vomiting. No abdominal pain. The patient is a very poor historian. Sister, is on the bedside. Length of time discussion done. All questions are answered. PHYSICAL EXAMINATION: VITAL SIGNS: Temperature 97.3, blood pressure 96/ 50 , pulse 53, respiratory rate 20. HEENT: Head normocephalic, atraumatic. Eyes: PERRLA. Extraocular muscles intact. Conjunctivae pink. Eyelids unremarkable. Nose patent. NECK: Supple. No carotid bruit, JVD, or thyromegaly. CHEST: Bilaterally symmetrical. HEART: S1, S2 positive. LUNGS: Clear to auscultation. ABDOMEN: Soft. Nontender. No organomegaly. EXTREMITIES: No edema. No cyanosis. NEUROLOGIC: The patient is awake, alert, moving all 4 extremities. No focal deficit. MEDICATIONS: Dextrose, Dilaudid, Protonix, Reglan, Zofran. LABORATORY DATA: White blood cells 4.3, hemoglobin 9.4, hematocrit 27.7, platelets 207. Sodium 134, potassium 3.1, BUN is 10, creatinine 0.6, random glucose 124. Calcium is 7. ASSESSMENT AND PLAN: The patient is a 46-year-old male with anemia; leukopenia ; hypokalemia, replaced; hyperchloremia; hyperglycemia; hypocalcemia; proteinuria; ketonuria. Seen by gastroenterology. The patient is mentally challenged. Has small-bowel obstruction with distended intestinal loops, status post flexible sigmoidoscopy which revealed anastomotic stricture with ulceration and swelling. The patient has history of multiple gastric surgeries , multiple times intestine obstruction. NG tube is out. The patient is started on clear liquid diet. Considering wire-guided balloon dilatation as per Dr. Henson and that will be next week. Meanwhile, continue hydration, replace the potassium, started on Reglan. Continue proton pump inhibitors and gastrointestinal prophylaxis. Discussion done with sister, We will follow up. Meme Rey MD cc: [id number] TT: 01/16/2017 04:40:30 Confirmation # [id number] Dictation # [id number] gregory HOFF
--- NOTE | 2017-01-16 09:01 | CP.PCM.PN ---
Subjective - Date & Time of Evaluation Date of Evaluation: 01/16/17 Time of Evaluation: 07:25 - Subjective Subjective: SURGERY NOTE FOR DR DMITRIY HENSON Pt seen and evaluated at the bedside. Pt reports eating his liquid diet, denies vomiting, and reports BM overnight. Afebrile. Objective - Vital Signs/Intake and Output Vital Signs (last 24 hours): Temp Pulse Resp BP Pulse Ox 97.9 F 69 15 98/62 L 95 01/16/17 08:00 01/16/17 08:00 01/16/17 08:00 01/16/17 08:00 01/16/17 08:00 Intake and Output: 01/16/17 01/16/17 06:59 18:59 Intake Total 600 Balance 600 - Medications Medications: Current Medications Calcium/Vitamin D (Oscal-D 250 Mg-125 Units Tab) 1 tab PO DAILY [facility] Potassium Chloride/Dextrose (Potassium Chl 40 Meq In D5w) 1,000 mls @ 30 mls/ hr IV .Q24H [facility] Metoclopramide HCl (Reglan) 5 mg PO ACHS [facility] Last Admin: 01/16/17 08:27 Dose: 5 mg Ondansetron HCl (Zofran Inj) 4 mg IVP Q6 PRN PRN Reason: Nausea/Vomiting Pantoprazole Sodium (Protonix Inj) 40 mg IVP Q12 [facility] Last Admin: 01/15/17 21:40 Dose: 40 mg - Labs Labs: 01/15/17 07:00 01/15/17 07:00 - Constitutional Appears: No Acute Distress - Head Exam Head Exam: NORMAL INSPECTION - Eye Exam Eye Exam: EOMI - ENT Exam ENT Exam: Mucous Membranes Moist - Respiratory Exam Respiratory Exam: NORMAL BREATHING PATTERN - Cardiovascular Exam Cardiovascular Exam: Tachycardia, REGULAR RHYTHM - GI/Abdominal Exam GI & Abdominal Exam: Soft. absent: Tenderness Additional comments: surgical scar present - Neurological Exam Neurological Exam: Alert, Awake - Skin Skin Exam: Intact, Normal Color Assessment and Plan - Assessment and Plan (Free Text) Assessment: 46 yo M w/ PMHx of multiple abdominal sx and GERD, initially presents with abdominal pain w/N/V. Abdominal obstructive series: multiple severely dilated loops of small bowel. Likely partial small bowel obstruction. Ab XR from 2016 shows improvement of SBO, though dilated loops of small and large bowel seen. Plan: IVF Liquid diet protonix Flex sigmoidoscopy 01/13/2017: stricture and ulcerations at anastamosis Possible wire guided balloon dilation for 01/20/2017 To be d/w Dr. Henson
[2017-01-16] MEDS ORDERED: Calcium-Vit D 250 mg-125 Units Tab UD PO SCH (10:00)
--- NOTE | 2017-01-16 11:56 | PN ---
DATE: 01/16/2017 Seen and examined at the bedside earlier this morning. His sister with there. The patient denies any nausea, vomiting. He is tolerating the liquid diet. No reports of any acute overnight events. The patient continues to have loose stool. No reports of any bleeding. VITALS: Temperature is 97.9, blood pressure 98/62, pulse 69, respirations 15, and 95 on room air. No new labs are noted for today. PHYSICAL EXAMINATION: HENT: Sclerae is anicteric. NECK: Supple. CARDIAC: S1, S2. LUNG SOUNDS: Decreased breath sounds, but good aeration. No rales or wheeze. ABDOMEN: With bowel sounds. His abdomen is soft and nontender. Does not appear distended. EXTREMITIES: No edema. NEUROLOGIC: He is awake and alert. ASSESSMENT: A 46-year-old male with a history of multiple abdominal surgeries and a gastroesophageal reflux disease, came with abdominal pain, nausea and vomiting; found to have severely dilated loops of the small bowel, likely a partial small-bowel obstruction. He underwent a flex sigmoidoscopy on 01/13, found to have stricture, and also ulcerations at the anastomosis. He had a repeat abdominal x-ray next day which shows improvement of the small-bowel obstruction, but still see dilated loops of small and large bowel seen. Other Comorbidities: Is mentally challenged, hypokalemia. PLAN: Will continue with the liquid diet. The patient for anastomotic site possible balloon dilation. Monitor electrolytes. Will check his BMP today. He got potassium replacements yesterday. Currently on IV fluids of D5W with 40 mEq of potassium. Continue PPI. He is on Protonix q. 12., on Reglan. Also being followed by surgery, and for TCU eval. The patient was seen , and case discussed with Dr. Davies. Samantha MONTES cc: [id number] TT: 01/16/2017 11:55:22 Confirmation # [id number] Dictation # [id number] jn KAVYA
[2017-01-16 13:23] LABS: BLOOD UREA NITROGEN 5 mg/dL (7-21); CALCIUM 7.2 mg/dL (8.4-10.5); CARBON DIOXIDE 23 mmol/L (21-33); CHLORIDE 105 mmol/L (98-107); GFR AFRICAN-AMERICAN > 60; GLUCOSE,RANDOM 132 mg/dL (70-110); POTASSIUM 3.3 mmol/L (3.6-5.0); SODIUM 130 mmol/L (132-148)
[2017-01-16 16:15] VITALS: BP 95/53; PULSE 79; RESP 18; TEMP 98.3; O2SAT 96
--- NOTE | 2017-01-17 10:22 | DS ---
CHIEF COMPLAINT: Nausea, vomiting, abdominal pain. HISTORY OF PRESENT ILLNESS: The patient is a 46-year-old patient with past medical history of anemia, aspiration pneumonia, dyspepsia multiple abdominal surgeries, multiple times intestinal obstruction, mentally retarded, was brought to the Emergency Room by the sister. Actually, sister was working overnight. When she came in the morning, brother was sitting on the floor and vomiting, was with pain. She brought her brother to the Emergency Room. We admitted the patient. X-ray showed a small-bowel obstruction. GI consult called with Dr. Davies. Surgical consult with Dr. Andres Henson. The patient went for sigmoidoscopy, found out that, at anastomosis place, there is ulcer and stricture. The patient was made n.p.o., NG tube put. Material was suctioned under pressure. He got better. Bowel movement came back. NG tube removed. Liquid diet given, tolerated, advanced very slowly. The patient needs extra treatment of the stricture, but first waiting for the healing of the ulcer at the anastomotic site. Meanwhile, we transferred the patient to TCU. We will advance diet slowly. We will get physical therapy. PAST MEDICAL HISTORY: Aspiration pneumonia, history of anemia, multiple blood transfusions, multiple scarring on abdominal wall from multiple abdominal surgeries by Dr. Henson, multiple times small bowel obstruction, anxiety, depression. FAMILY HISTORY: Unknown. HABITS: No smoking, no drugs, no ethanol. ALLERGIES: The patient is not allergic with any medication. REVIEW OF SYSTEMS: The patient seen and examined in his room, looks comfortable. No more nausea, vomiting. Had a couple of times bowel movements. Tolerated liquid diet. No report of any acute event overnight. Still having loose stool. PHYSICAL EXAMINATION: VITAL SIGNS: Temperature 97.9, blood pressure 98/62, respiratory rate 16, p95. HEENT: Head normocephalic and atraumatic. Eyes: PERRLA. Extraocular muscles intact. Conjunctivae pink. Eyelids unremarkable. Nose patent. Mucous membranes moist. NECK: Supple. No carotid bruit, JVD or thyromegaly. CHEST: Bilaterally symmetrical. HEART: S1, S2 positive. LUNGS: Clear to auscultation. ABDOMEN: Soft. Nontender, no organomegaly. Multiple scar miramontes of surgery. EXTREMITIES: No edema, no cyanosis. NEUROLOGIC: The patient is awake, alert and moving all 4 extremities. MEDICATIONS: Dextrose, calcium with vitamin D, potassium, Protonix, vancomycin and Zofran. LABORATORY DATA: White blood cells is 4.3, hemoglobin 9.4, hematocrit 27.7, platelets 207. Sodium 130, potassium 3.3, BUN 5, creatinine 0.6, glucose 132, calcium 7.2. ASSESSMENT AND PLAN: The patient is a 46-year-old male with leukopenia, anemia , hypokalemia, hyponatremia, hyperglycemia, hypocalcemia, proteinuria, ketonuria , came with small bowel obstruction, seen by gastroenterology, Dr. Davies, and surgery by Dr. Andres Henson; had multiple abdominal surgeries and gastroesophageal reflux disease, found to have severely dilated loops of the small bowel, likely partial small bowel obstruction, underwent a flexible sigmoidoscopy on 01/13, found to have a stricture and also ulceration at the anastomosis. Repeat abdominal x-ray yesterday shows improvement of the small bowel obstruction, but3. dilated loops of the small and large bowel. Other comorbidity is the mentally challenged, electrolyte imbalance, hypokalemia, hypocalcemia, replaced. We will continue liquid diet. We will advance very slowly. The patient for anastomotic possible balloon dilation. Monitor electrolytes, potassium supplement provided. Continue IV fluid. Gastrointestinal and deep venous thrombosis prophylaxis, being followed by surgery and gastroenterology in the TCU, mentally retarded, get physical therapy also in TCU. We will follow up. Meme Rey MD cc: [id number] TT: 01/17/2017 10:21:41 tn MTDD
== END 2017-01-16 18:59 | DRG 394 ==
LOC: ED 06:02 → ERH 10:44 → 5RSO 11:54
PROVIDERS: ADMIT Internal Medicine; ATTEND Internal Medicine
PROC: 0D9670Z Drainage of Stomach with Drainage Device, Via Natural or Artificial Opening (ICD-10-PCS; principal; 2017-01-12)
PROC: 0DJD8ZZ Inspection of Lower Intestinal Tract, Via Natural or Artificial Opening Endoscopic (ICD-10-PCS; 2017-01-13)
DX: K63.3 Ulcer of intestine (principal); K56.60 Unspecified intestinal obstruction; E87.1 Hypo-osmolality and hyponatremia; E86.0 Dehydration; D64.9 Anemia, unspecified; F79 Unspecified intellectual disabilities; K21.9 Gastro-esophageal reflux disease without esophagitis; E83.51 Hypocalcemia; E87.6 Hypokalemia; F32.9 Major depressive disorder, single episode, unspecified; F41.9 Anxiety disorder, unspecified; R73.9 Hyperglycemia, unspecified

== ENCOUNTER 2017-01-16 18:49 | Inpatient (IN) | payer OTHER, MEDICAID ==
[2017-01-17 00:28] VITALS: BMI 19.2
[2017-01-17] MEDS ORDERED: Pneumococcal 23-Valent Vaccine IM ONE (00:28)
[2017-01-17] MEDS: Pantoprazole 40mg/100ml IVPB 100 ML IVPB SCH ×2 (05:44→17:36)
[2017-01-17] MEDS ORDERED: Pantoprazole 40mg/100ml IVPB 100 ML IVPB SCH (06:00)
[2017-01-17 07:14] LABS: ADD MANUAL DIFF? NO
[2017-01-17 07:25] LABS: BASO # 0.03 K/mm3 (0.0-2.0); BASO % 0.5 % (0.0-3.0); EOS # 0.1 (0.0-0.7); EOS % 1.5 % (1.5-5.0); GRAN % 70.2 % (50.0-68.0); HEMATOCRIT 31.1 % (42.0-52.0); LYMPH # 1.1 (1.2-3.4); LYMPH % 18.4 % (22.0-35.0); MEAN CELL VOLUME 89.6 fL (80.0-105.0); MEAN CORPUSCULAR HEMOGLOBIN 30.3 pg (25.0-35.0); MEAN CORPUSCULAR HGB CONC 33.8 g/dl (31.0-37.0); MEAN PLATELET VOLUME 9.4 fl (7.0-11.0); MONO # 0.6 (0.1-0.6); MONO % 9.4 % (1.0-6.0); PLATELET COUNT 225 10^3/uL (120.0-450.0); RED CELL DISTRIBUTION WIDTH 14.3 % (11.5-14.5)
[2017-01-17 07:30] LABS: ALB/GLOB RATIO 0.7 (1.1-1.8); ALKALINE PHOSPHATASE 64 U/L (38-133); ALT/SGPT 41 U/L (7-56); AST/SGOT 20 U/L (15-59); BILIRUBIN,TOTAL 0.6 mg/dL (0.2-1.3); BLOOD UREA NITROGEN 4 mg/dL (7-21); CALCIUM 7.2 mg/dL (8.4-10.5); CARBON DIOXIDE 30 mmol/L (21-33); CHLORIDE 101 mmol/L (98-107); GFR AFRICAN-AMERICAN > 60; GLUCOSE,RANDOM 83 mg/dL (70-110); POTASSIUM 3.8 mmol/L (3.6-5.0); SODIUM 129 mmol/L (132-148); TOTAL PROTEIN 4.2 g/dL (5.8-8.3)
--- NOTE | 2017-01-17 09:45 | CP.PCM.PCO ---
Physician Communication Note - Physician Communication Note Physician Communication Note: Ileal-sigmoid stricture-Rx Dilation ; full liquids now
[2017-01-17] MEDS: Calcium-Vit D 250 mg-125 Units Tab UD PO SCH (10:32)
--- NOTE | 2017-01-17 23:22 | PN ---
DATE: 01/17/2017 This patient was seen and evaluated earlier. The patient has been moving his bowels more than 4 time s; loose bowel movements. On clear liquid diet, tolerating. On examination, temperature is 98.3, blood pressure 94/60, respirations 18, and O2 saturations 94%. HENT: Atraumatic. Anicteric. NECK: Supple. HEART: S1, S2 heard. LUNGS: Bilateral air entry present. ABDOMEN: Soft. There was no tenderness. EXTREMITIES: No edema, no cyanosis. LABORATORY DATA: Hemoglobin 10.5, hematocrit 31.1, WBC is 6.0, platelets 225. IMPRESSION: This 46-year-old patient admitted with a small-bowel obstruction. The patient had multi ple surgeries in the past: A flexible sigmoidoscopy done, anastomotic narrowing. PLAN: To allow the inflammation subside, and consider and balloon dilation of the anastomotic strict ure, which has been scheduled for 01/20/2017. His other comorbidities include gastroesophageal reflux disease, history of aspiration pneumonia in t he past, history of ileorectal anastomosis, history of small bowel resection, subtotal colectomy. Will continue to closely follow up care and suggest further management based on the clinical co haven. Cristiane Davies MD cc: [id number] TT: 01/17/2017 23:21:36 Confirmation # [id number] Dictation # [id number] jn
--- NOTE | 2017-01-18 00:33 | CP.PCM.PN ---
Subjective - Date & Time of Evaluation Date of Evaluation: 01/18/17 Time of Evaluation: 00:32 - Subjective Subjective: SURGERY PROGRESS NOTE FOR DR. RICHARD 46M seen and examined at bedside. Patient is resting comfortably, denies pain, N /V. Tolerates diet. Objective - Vital Signs/Intake and Output Vital Signs (last 24 hours): Temp Pulse Resp BP Pulse Ox 98.3 F 83 18 94/60 L 91 L 01/17/17 16:00 01/17/17 16:00 01/17/17 16:00 01/17/17 16:00 01/17/17 16:00 Intake and Output: 01/17/17 01/18/17 18:59 06:59 Output Total 1703 Balance -1703 - Medications Medications: Current Medications Calcium/Vitamin D (Oscal-D 250 Mg-125 Units Tab) 1 tab PO DAILY [facility] PRN Reason: Protocol Last Admin: 01/17/17 10:32 Dose: 1 tab Pantoprazole Sodium (Protonix 40mg Ivpb) 100 mls @ 200 mls/hr IVPB 0600,1800 [facility] Last Admin: 01/17/17 17:36 Dose: 200 mls/hr Metoclopramide HCl (Reglan) 5 mg PO ACHS [facility] PRN Reason: Protocol Last Admin: 01/17/17 21:34 Dose: 5 mg Ondansetron HCl (Zofran Inj) 4 mg IVP Q6H PRN; Protocol PRN Reason: Nausea/Vomiting - Labs Labs: 01/17/17 07:13 01/17/17 07:13 - Constitutional Appears: Non-toxic, No Acute Distress - Head Exam Head Exam: ATRAUMATIC - Respiratory Exam Respiratory Exam: Clear to Ausculation Bilateral, NORMAL BREATHING PATTERN - Cardiovascular Exam Cardiovascular Exam: REGULAR RHYTHM, +S1, +S2 - GI/Abdominal Exam GI & Abdominal Exam: Soft. absent: Distended, Firm, Guarding, Rigid, Tenderness , Rebound Assessment and Plan - Assessment and Plan (Free Text) Assessment: 46 yo M w/ PMHx of multiple abdominal sx and GERD, initially presents with abdominal pain w/N/V. Plan: Flex sigmoidoscopy 01/13/2017: stricture and ulcerations at anastomosis Wire guided balloon dilation scheduled for 01/20/2017 by GI Further recs discuss with Dr. Sixto Blum, PGY1
[2017-01-18] MEDS: Pantoprazole 40mg/100ml IVPB 100 ML IVPB SCH ×2 (05:25→17:09)
--- NOTE | 2017-01-18 09:47 | CP.PCM.PCO ---
Physician Communication Note - Physician Communication Note Physician Communication Note: Anastamotic stricture for dilation 01/20--Needs prep started
[2017-01-18] MEDS: POLYETHYLENE GLYCOL 3350 17 GM/Dose PACKET PO SCH ×2 (11:00→17:10)
[2017-01-18] MEDS: Calcium-Vit D 250 mg-125 Units Tab UD PO SCH (11:00)
--- NOTE | 2017-01-18 20:18 | PN ---
DATE: 01/18/2017 SUBJECTIVE: The patient is seen and examined on the bedside, looks comfortable. No nausea, vomiting , or diarrhea. No hematuria or hematochezia. No swelling of the leg. No chest pain or palpitation. Tolerating liquid food very well. Was on clear liquids and now advanced to full liquids. No hemat uria or hematochezia. No fever, no chills. PHYSICAL EXAMINATION: VITAL SIGNS: Temperature 97.3, pulse 97, blood pressure 102/68, respiratory rate 18. HEENT: Head normocephalic, atraumatic. Eyes: PERRLA. Extraocular muscles intact. Conjunctivae pin k. Eyelids unremarkable. Nose patent. NECK: Supple. No carotid bruit, JVD or thyromegaly. CHEST: Bilaterally symmetrical. HEART: S1, S2 positive. LUNGS: Clear to auscultation. ABDOMEN: Soft. Bowel sounds present. No organomegaly. EXTREMITIES: No edema, no cyanosis. NEUROLOGIC: The patient is awake, alert, moving all 4 extremities. No focal deficit. MEDICATIONS: MiraLax, Os-Peter, Protonix, Reglan, and Zofran. LABORATORY DATA: White blood cells 6.0, hemoglobin 10.5, hematocrit 31.1, and platelets 225. Sodium 129, potassium 3.8, BUN 4, creatinine 0.6, glucose 83, calcium 7.9. ASSESSMENT AND PLAN: The patient is a 46-year-old male with anemia, status post history of blood tra nsfusion, hyponatremia, hypocalcemia, came with a small-bowel obstruction and was treated conservativ yunior with NG tube. Tolerating a liquid diet very well. flex sigmoidoscopy showed stricture and ulceration at anastomosis site. The patient is scheduled for wire guided balloon dilatation on 01/10. Reviewed Dr. Davies's notes. I reviewed Dr. Peace's communication report also, radha vásquez. The patient is mentally challenged. He has a history of multiple times small-bowel obstruction , history of multiple times abdominal surgeries. Gastrointestinal and deep venous thrombosis prophyl axis. Will repeat labs and will followup. Meme Rey MD cc: [id number] TT: 01/18/2017 20:17:25 Confirmation # [id number] Dictation # [id number] dn
[2017-01-19] MEDS: Pantoprazole 40mg/100ml IVPB 100 ML IVPB SCH ×2 (05:20→18:37)
[2017-01-19 06:32] LABS: ADD MANUAL DIFF? NO
[2017-01-19 06:53] LABS: BASO # 0.04 K/mm3 (0.0-2.0); BASO % 0.8 % (0.0-3.0); EOS # 0.1 (0.0-0.7); EOS % 1.7 % (1.5-5.0); GRAN # 3.04 (1.4-6.5); GRAN % 62.8 % (50.0-68.0); HEMATOCRIT 30.4 % (42.0-52.0); LYMPH # 1.2 (1.2-3.4); LYMPH % 25.6 % (22.0-35.0); MEAN CELL VOLUME 90.5 fL (80.0-105.0); MEAN CORPUSCULAR HEMOGLOBIN 30.4 pg (25.0-35.0); MEAN CORPUSCULAR HGB CONC 33.6 g/dl (31.0-37.0); MEAN PLATELET VOLUME 9.4 fl (7.0-11.0); MONO # 0.4 (0.1-0.6); MONO % 9.1 % (1.0-6.0); PLATELET COUNT 254 10^3/uL (120.0-450.0); RED CELL DISTRIBUTION WIDTH 14.9 % (11.5-14.5); WHITE BLOOD COUNT 4.8 10^3/ul (4.5-11.0)
[2017-01-19 07:05] LABS: BLOOD UREA NITROGEN 9 mg/dL (7-21); CALCIUM 7.4 mg/dL (8.4-10.5); CARBON DIOXIDE 26 mmol/L (21-33); CHLORIDE 103 mmol/L (98-107); GFR AFRICAN-AMERICAN > 60; GLUCOSE,RANDOM 88 mg/dL (70-110); POTASSIUM 3.8 mmol/L (3.6-5.0); SODIUM 129 mmol/L (132-148)
--- NOTE | 2017-01-19 08:19 | HP ---
CHIEF COMPLAINT: Abdominal pain, nausea, vomiting. HISTORY OF PRESENT ILLNESS: The patient is a 46-year-old male with multiple medical problems, mental ly retarded, history of multiple times intestinal obstruction, multiple abdominal surgeries, was brou ght to the Emergency Room by the sister because of intractable nausea, vomiting. Came to find patien t has small bowel obstruction. GI and surgery consult called. NG tube passed. The patient was made n.p.o. After a couple of days, the patient got better. Sigmoidoscopy done showed ulcer at the anas tomotic site and stenosis. The patient improved a little bit. Then, liquid diet given. Tolerated l iquid diet very well. Transferred patient to TCU for continuity of care. Now, will go for surgery l ater on for stricture dilatation. PAST MEDICAL HISTORY: Aspiration pneumonia, history of anemia, multiple blood transfusions, multiple times abdominal surgeries, multiple times small bowel obstruction, anxiety, depression. FAMILY HISTORY: Unknown. HABITS: No smoking, no drugs, no ethanol. ALLERGIES: The patient is not allergic with any medication. REVIEW OF SYSTEMS: The patient seen and examined on the bedside, looks comfortable. No nausea, vomi ting, diarrhea. No hematuria, no hematochezia. No swelling of the legs. No headache, no dizziness. PHYSICAL EXAMINATION: VITAL SIGNS: Temperature 98.3, pulse 83, blood pressure 94/ , respiratory rate 18. HEENT: Head normocephalic, atraumatic. Eyes: PERRLA. Extraocular muscles intact. Conjunctivae pi nk. Eyelids unremarkable. Nose patent. Mucous membranes moist. NECK: Supple. No carotid bruit, no JVD, no thyromegaly. CHEST: Bilaterally symmetrical. HEART: S1, S2 positive. LUNGS: Clear to auscultation. ABDOMEN: Soft. Bowel sounds positive. No organomegaly. EXTREMITIES: No edema, no cyanosis. NEUROLOGIC: The patient is awake, alert. Moving all 4 extremities. No focal deficits. LABORATORIES: White blood cells is 6.0, hemoglobin 10.5, hematocrit 31.1, platelets 225. Sodium 129 , potassium 3.8, BUN 4, creatinine 0.6. Calcium 7.2. ASSESSMENT AND PLAN: The patient is a 46-year-old male with anemia, hyponatremia, hypocalcemia, ment ally challenged, history of aspiration pneumonia, multiple blood transfusions, multiple scarring of a bdominal wall from multiple abdominal surgeries, multiple times small bowel obstruction, anxiety, dep ression, electrolyte imbalance. Again, has small bowel obstruction. Now tolerating liquid diet very well and getting physical therapy. Will go for surgery. Appreciated Dr. Henson' communication re port. 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 Gastrointestinal and deep venous throm bosis prophylaxis. We will follow up. Meme Rey MD cc: [id number] TT: 01/18/2017 07:39:02 en
[2017-01-19] MEDS: Calcium-Vit D 250 mg-125 Units Tab UD PO SCH (10:06)
[2017-01-19] MEDS: POLYETHYLENE GLYCOL 3350 17 GM/Dose PACKET PO SCH ×2 (10:07→18:37)
--- NOTE | 2017-01-19 12:53 | PN ---
DATE: 01/19/2017 Seen and examined at the bedside in the TCU. The patient is reported to be having liquid bowel movem ents, no blood. He denies any nausea, vomiting. No abdominal pain. Tolerating the liquid diet. VITAL SIGNS: Blood pressure 102/68, pulse 97, respirations 18, 98 on room air. LABORATORY DATA: WBC is 4.8, H and H are 10.2 and 30.4, platelets are 254. Sodium 129, K is 3.8, BU N 9, creatinine 0.6. PHYSICAL EXAMINATION: HEENT: Sclerae are anicteric. NECK: Supple. CARDIAC: S1, S2. CHEST: Lung sounds are clear. ABDOMEN: With bowel sounds. It is soft, nontender on palpation. No organomegaly. EXTREMITIES: No edema. NEUROLOGIC: Awake and alert. ASSESSMENT: A 46-year-old male with small bowel obstruction, has had multiple abdominal surgeries in the past, status post flexible sigmoidoscopy, found to have an anastomotic narrowing. Other comorbi dities are gastroesophageal reflux disease, history of aspiration pneumonia and ileorectal anastomosi s. PLAN: For balloon dilation of the anastomotic stricture tomorrow, 01/20/2017. He will be n.p.o. aft er midnight. Monitor electrolytes. Will follow. The patient was seen and case discussed with Dr. Handy morocho. Samantha MONTES cc: [id number] TT: 01/19/2017 12:53:01 Confirmation # [id number] Dictation # [id number] mn
--- NOTE | 2017-01-19 13:57 | CP.PCM.PN ---
Subjective - Date & Time of Evaluation Date of Evaluation: 01/19/17 Time of Evaluation: 07:30 - Subjective Subjective: Surgery: Dr. Henson Pt seen and examined. No acute overnight events. States he's feeling well and denies complaints. Denies abdominal pain, and states he's tolerating a diet. Denies N/V, F/C. Objective - Vital Signs/Intake and Output Vital Signs (last 24 hours): Temp Pulse Resp BP Pulse Ox 98 F 87 18 101/67 99 01/19/17 10:00 01/19/17 10:00 01/19/17 10:00 01/19/17 10:00 01/19/17 10:00 Intake and Output: 01/19/17 01/19/17 06:59 18:59 Intake Total 840 Balance 840 - Medications Medications: Current Medications Calcium/Vitamin D (Oscal-D 250 Mg-125 Units Tab) 1 tab PO DAILY [facility] PRN Reason: Protocol Last Admin: 01/19/17 10:06 Dose: 1 tab Pantoprazole Sodium (Protonix 40mg Ivpb) 100 mls @ 200 mls/hr IVPB 0600,1800 [facility] Last Admin: 01/19/17 05:20 Dose: 200 mls/hr Magnesium Citrate (Citrate Of Mag) 300 ml PO ONCE ONE Stop: 01/19/17 15:01 Metoclopramide HCl (Reglan) 5 mg PO ACHS [facility] PRN Reason: Protocol Last Admin: 01/19/17 12:27 Dose: 5 mg Ondansetron HCl (Zofran Inj) 4 mg IVP Q6H PRN; Protocol PRN Reason: Nausea/Vomiting Polyethylene Glycol (Miralax) 17 gm PO BID [facility] Last Admin: 01/19/17 10:07 Dose: 17 gm - Labs Labs: 01/19/17 06:00 01/19/17 06:00 - Constitutional Appears: Well, No Acute Distress - Head Exam Head Exam: ATRAUMATIC, NORMOCEPHALIC - ENT Exam ENT Exam: Mucous Membranes Moist - Respiratory Exam Respiratory Exam: NORMAL BREATHING PATTERN - Cardiovascular Exam Cardiovascular Exam: RRR - GI/Abdominal Exam GI & Abdominal Exam: Soft. absent: Distended, Guarding, Tenderness - Extremities Exam Extremities Exam: absent: Tenderness - Neurological Exam Neurological Exam: Alert, Awake, Oriented x3 - Skin Skin Exam: Dry, Intact, Warm Assessment and Plan - Assessment and Plan (Free Text) Assessment: 46M admitted for SBO, resolved Plan: - tolerating diet, having BMs - for wire guided balloon dilatation of stricture tomorrow - NPO after midnight - d/w Dr. Sixto Prado, PGY-2 Surgery
--- NOTE | 2017-01-19 14:37 | PN ---
DATE: 01/19/2017 ADDENDUM This is an addendum to the GI progress report dictated by Samantha Waldron NP. The patient was seen and evaluated earlier. The patient has been on a clear liquid diet. Abdomen is soft. There is no tende rness. We will give a bottle of citrate of magnesia today and schedule for a flex sig and dilation o f the anastomotic stricture. Thank you very much for allowing us to participate in the care of the patient. Cristiane Davies MD cc: [id number] TT: 01/19/2017 14:36:28 Confirmation # [id number] Dictation # [id number] en
[2017-01-19] MEDS ORDERED: Magnesium Citrate Oral SOL (300 ml) PO ONE (15:00)
--- NOTE | 2017-01-19 21:16 | PN ---
DATE: 01/19/2017 The patient is a 46-year-old male. SUBJECTIVE: The patient was seen and examined on the bedside. He was doing physical therapy, looks better. No more nausea, vomiting, or diarrhea. No abdominal pain. No fever. No chills. No hematuria. No hematochezia. No headache. No dizziness. PHYSICAL EXAMINATION: VITAL SIGNS: Temperature 98.0, pulse 87, blood pressure 101/67, respiratory rate 18. HEENT: Head normocephalic, atraumatic. Eyes: PERRLA. Extraocular muscles intact. Conjunctivae pink. Eyelids unremarkable. Nose patent. Mucous membranes moist. NECK: Supple. No carotid bruit. No JVD or thyromegaly. CHEST: Bilaterally symmetrical. HEART: S1, S2 positive. LUNGS: Clear to auscultation. ABDOMEN: Soft. Bowel sounds present. No organomegaly. EXTREMITIES: No edema. No cyanosis. NEUROLOGIC: The patient is awake, alert, moving all 4 extremities. No focal deficits. MEDICATIONS: MiraLax, calcium, vitamin D, Protonix, Reglan, Zofran, LABORATORY DATA: White blood cells 4.8, hemoglobin 10.2, hematocrit 30.4, platelets 254. Sodium 129, potassium is 3.8, BUN 9, creatinine 0.6, calcium 7.4. ASSESSMENT AND PLAN: The patient is 46-year-old male with hyponatremia, hypocalcemia, hyperalbuminemia, anemia, mentally challenged, history of chronic constipation, history of gastroparesis, multiple times abdominal surgeries, multiple abdominal scars. This time came for small obstruction. History of blood transfusion. Was treated conservatively with NG tube. Tolerating liquid diet very well. Flex sigmoidoscopy showed stricture and ulceration at anastomosis site. The patient is scheduled for guided balloon dilatation on 08/2017. GI and surgery are on the case. Continue Protonix. I appreciate Dr. Peace's communication report. Gastrointestinal and deep venous thrombosis prophylaxis. Repeat labs. We will follow up. Meme Rey MD cc: [id number] TT: 01/19/2017 21:16:06 Confirmation # [id number] Dictation # [id number] [facility]
[2017-01-20] MEDS: Pantoprazole 40mg/100ml IVPB 100 ML IVPB SCH ×2 (05:20→19:00)
[2017-01-20 08:01] LABS: INR 1.09 (0.93-1.08)
[2017-01-20 08:21] LABS: BLOOD UREA NITROGEN 7 mg/dL (7-21); CALCIUM 7.7 mg/dL (8.4-10.5); CARBON DIOXIDE 29 mmol/L (21-33); CHLORIDE 103 mmol/L (95-110); GFR AFRICAN-AMERICAN > 60; GLUCOSE,RANDOM 79 mg/dL (70-110); POTASSIUM 3.6 mmol/L (3.6-5.0); SODIUM 133 mmol/L (132-148)
[2017-01-20] MEDS: POLYETHYLENE GLYCOL 3350 17 GM/Dose PACKET PO SCH ×2 (09:55→19:00)
[2017-01-20] MEDS: Calcium-Vit D 250 mg-125 Units Tab UD PO SCH (09:56)
[2017-01-20] MEDS ORDERED: metroNIDAZOLE IV 500 mg/100 ml 100 ML IVPB ONE (13:00)
[2017-01-20] MEDS ORDERED: Lactated Ringer's 1,000 ML IV SCH (16:00)
[2017-01-21] MEDS: Pantoprazole 40mg/100ml IVPB 100 ML IVPB SCH ×2 (05:42→17:08)
--- NOTE | 2017-01-21 08:19 | PN ---
DATE: 01/20/2017 ADDENDUM: This is an addendum to the GI report. This patient underwent a flexible sigmoidoscopy and dilation o f the ileorectal anastomosis. The anastomosis was tight and progressively it was dilated up to 30 Fr ench size ____. The patient did have some bleeding post-dilation probably related to the dilation it self and also patient still had some erosions at the anastomotic margin. The recommendation is to co nsider a full liquid diet today then advance to pureed diet with stool softener. Subsequently the pa tient would need a repeat dilation in 2-3 weeks' time. Cristiane Davies MD cc: [id number] TT: 01/21/2017 00:59:36 Confirmation # [id number] Dictation # [id number] jn
--- NOTE | 2017-01-21 08:20 | PN ---
DATE: 01/20/2017 SUBJECTIVE: The patient was seen and examined early in the morning. Looks comfortable. Getting ready to go for the procedure. No hematuria or hematochezia. No swelling of the legs. No chest pain, no palpitation. No headache, no dizziness. PHYSICAL EXAMINATION: VITAL SIGNS: Temperature 97.2, pulse 102, blood pressure 92/50 , respiratory rate 18. HEENT: Head normocephalic, atraumatic. Eyes: PERRLA. Extraocular muscles intact. Conjunctivae pink. Eyelids unremarkable. Nose patent. Mucous membranes moist. NECK: Supple. No carotid bruit. No JVD or thyromegaly. CHEST: Bilaterally symmetrical. HEART: S1, S2 positive. LUNGS: Clear to auscultation. ABDOMEN: Soft. Bowel sounds positive. No organomegaly. EXTREMITIES: No edema, no cyanosis. NEUROLOGIC: The patient is awake, alert, moving all 4 extremities. No focal deficit. MEDICATIONS: MiraLax, calcium, Protonix, Reglan, and Zofran. LABORATORY DATA: White blood cells 4.8, hemoglobin 10.2, hematocrit 30.4, and platelets 256. Sodium 133, potassium 3.6, BUN 7, creatinine 0.6, calcium 7.7. ASSESSMENT AND PLAN: The patient is a 46-year-old male with anemia, hyponatremia, hypocalcemia, he is mentally challenged, history of chronic constipation, history of gastroparesis, multiple times abdominal surgeries, multiple abdominal wall scars. This time came with small bowel obstruction, history of anemia, history of blood transfusions. The patient was given conservative treatment with NG tube; he improved. Tolerating liquid diet. Flex sigmoidoscopy was done and shows stricture and ulceration at anastomotic site. Today, the patient went for balloon dilation. Spoke to Dr. Davies. He did use at least 4 times of bougies to open the stricture and he was able to open a little bit. He does not want to do more because he does not want perforation of the colon. We will start patient on liquid diet and advance slowly as tolerated. Dr. Davies will talk with Dr. Henson to make further planning. Will follow up. Meme Rey MD cc: [id number] TT: 01/20/2017 22:21:55 Confirmation # [id number] Dictation # [id number] tatiana HOFF
[2017-01-21] MEDS: POLYETHYLENE GLYCOL 3350 17 GM/Dose PACKET PO SCH ×2 (09:32→17:08)
[2017-01-21] MEDS: Calcium-Vit D 250 mg-125 Units Tab UD PO SCH (09:33)
--- NOTE | 2017-01-21 14:17 | PN ---
DATE: 01/21/2017 Seen and examined at the bedside this afternoon. The patient is status post flex sig with dilatation . The patient had an ileoanal stricture and underwent a dilatation with colonic balloon dilator unde r fluoro. The patient denies any nausea, vomiting, or abdominal pain. No reports of any bleeding pe r rectum. No reports of any fever or chills. The patient's diet was advanced as per surgery, which he is enjoying consuming upon my visit. VITAL SIGNS: Temperature is 98.5, blood pressure is 94/63, pulse 77, respirations 18, 96% on room ai r. No new labs are noted for today. PHYSICAL EXAMINATION: HEENT: Sclerae anicteric. NECK: Supple. CARDIAC: S1, S2. LUNG SOUNDS: Clear. ABDOMEN: With bowel sounds, soft, nontender. EXTREMITIES: No edema. NEUROLOGIC: Awake and alert and aware of surroundings. ASSESSMENT: This is a 46-year-old male with history of gastroesophageal reflux disease, recurrent sm all bowel obstruction and multiple abdominal surgeries. He is status post flex sig and was found to have an anastomotic narrowing, status post colonic dilatation yesterday. PLAN: His diet was advanced to a heart healthy. Recommend soft, low residual. He is on IV Protonix of 40, getting MiraLax b.i.d. He is also on Reglan. We will continue to follow. The patient was seen and case discussed with Dr. Davies. Samantha MONTES cc: [id number] TT: 01/21/2017 14:16:35 Confirmation # [id number] Dictation # [id number] en
--- NOTE | 2017-01-21 15:42 | CP.PCM.PN ---
Subjective - Date & Time of Evaluation Date of Evaluation: 01/21/17 Time of Evaluation: 07:15 - Subjective Subjective: Surgery Progress note. Dr. Henson Pt seen and examined at bedside. Denies any new complaints. No N/V/D. No Abdominal pain. No F/C. Tolerating diet. Objective - Vital Signs/Intake and Output Vital Signs (last 24 hours): Temp Pulse Resp BP Pulse Ox 98.5 F 77 18 94/63 L 96 01/21/17 10:01 01/21/17 10:01 01/21/17 10:01 01/21/17 10:01 01/21/17 10:01 - Medications Medications: Current Medications Calcium/Vitamin D (Oscal-D 250 Mg-125 Units Tab) 1 tab PO DAILY [facility] PRN Reason: Protocol Last Admin: 01/21/17 09:33 Dose: 1 tab Pantoprazole Sodium (Protonix 40mg Ivpb) 100 mls @ 200 mls/hr IVPB 0600,1800 [facility] Last Admin: 01/21/17 05:42 Dose: 200 mls/hr Metoclopramide HCl (Reglan) 5 mg PO ACHS [facility] Ondansetron HCl (Zofran Inj) 4 mg IVP Q6H PRN; Protocol PRN Reason: Nausea/Vomiting Polyethylene Glycol (Miralax) 17 gm PO BID [facility] Last Admin: 01/21/17 09:32 Dose: 17 gm - Labs Labs: 01/19/17 06:00 01/20/17 07:00 PT 11.8 Seconds (9.9-11.8) 01/20/17 07:00 INR 1.09 (0.93-1.08) H 01/20/17 07:00 APTT 26.9 Seconds (23.7-30.8) 01/19/17 14:00 - Constitutional Appears: Well, No Acute Distress - Head Exam Head Exam: ATRAUMATIC, NORMAL INSPECTION, NORMOCEPHALIC - Eye Exam Eye Exam: EOMI, Normal appearance, PERRL Pupil Exam: PERRL - ENT Exam ENT Exam: Mucous Membranes Moist, Normal Exam - Respiratory Exam Respiratory Exam: NORMAL BREATHING PATTERN - Cardiovascular Exam Cardiovascular Exam: RRR. absent: JVD - GI/Abdominal Exam GI & Abdominal Exam: Soft. absent: Distended, Tenderness Additional comments: Multiple surgical scars - Extremities Exam Extremities Exam: Normal Inspection. absent: Calf Tenderness - Neurological Exam Neurological Exam: Alert, Awake - Skin Skin Exam: Dry, Intact, Normal Color, Warm Assessment and Plan - Assessment and Plan (Free Text) Assessment: 46yo M here for recurrent SBO; resolved. S/p Balloon dilation of strictured anastamosis by GI 01/20/2017 - Had 30 maur[place] balloon dilation of strictured ileorectal anastamosis on . GI team recommends repeat dilation in 2-3 weeks. - Continue Full liquids - Miralax 17g PO BID for preserved bowel function - No plan for any acute surgical intervention Discussed case with Dr. Sixto Ross PGY1
--- NOTE | 2017-01-22 00:12 | PN ---
DATE: 01/21/2017 ADDENDUM This is an addendum to the GI progress report dictated by Samantha Waldron NP. The patient is on low-residue, soft diet. The patient was reluctant about the pureed diet. The leydi ent was the low-residue, soft diet to pureed diet . The patient was advised to chew and e at. 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 Could not be dilated further than that and doing the sitting because of the bleeding, probably sec ondary to dilation and also due to the still persistent erosions at the site. It is reasonable to co nsider repeating the dilation in a few weeks. Thank you very much for allowing us to participate in the care of the patient. Cristiane Davies MD cc: [id number] TT: 01/22/2017 00:12:06 Confirmation # [id number] Dictation # [id number] tn
[2017-01-22] MEDS: Pantoprazole 40mg/100ml IVPB 100 ML IVPB SCH ×2 (06:22→17:10)
--- NOTE | 2017-01-22 09:00 | PN ---
DATE: 01/21/2017 SUBJECTIVE: The patient was seen and examined on the bedside. Looks comfortable. No nausea, vomiting, or diarrhea. No hematuria or hematochezia. No chest pain or palpitation. No headache, no dizziness. as per nurse in the evening that he was having pain in the feet. I called consult with Dr. Perez. PHYSICAL EXAMINATION: VITAL SIGNS: Temperature 98, pulse 91, blood pressure 92/52, respiratory rate 18. HEENT: Head normocephalic, atraumatic. Eyes: PERRLA. Extraocular muscles intact. Conjunctivae pink. Eyelids unremarkable. Nose patent. Mucous membranes moist. NECK: Supple. No carotid bruit, JVD or thyromegaly. CHEST: Bilaterally symmetrical. HEART: S1, S2 positive. LUNGS: Clear to auscultation. ABDOMEN: Soft. Bowel sounds positive. No organomegaly. EXTREMITIES: No edema, no cyanosis. NEUROLOGIC: The patient is awake, alert. Moving all 4 extremities. No focal deficit. MEDICATIONS: MiraLax, Os-Peter, Protonix, Reglan, Zofran. LABORATORY DATA: We do not have recent labs today, but I reviewed old labs. ASSESSMENT AND PLAN: The patient is a 46-year-old male, mentally challenged. He has recurrent small bowel obstruction resolved.with NG tube was , got better. got balloon dilatation of stricture anastomosis by GI on 01/20/2017, balloon dilatation of stricture, ileorectal done . GI team recommended to repeat dilatation in 2-3 weeks. The patient is getting full liquid diet, MiraLax. No plan for surgery as per Dr. barajas . The patient is improving with conservative treatment. The patient is seen by GI, Dr. Davies also. He has a history of gastroesophageal reflux disease, recurrent small bowel obstruction and multiple abdominal surgeries, history of anemia, status post blood transfusion. He is on IV Protonix, getting MiraLax also and Reglan. Appreciate Dr. Davies's and surgical input. The patient is not having GI bleeding now. We will follow up. Meme Rey MD cc: [id number] TT: 01/22/2017 02:43:36 Confirmation # [id number] Dictation # [id number] bn MTDD
--- NOTE | 2017-01-22 09:22 | CP.PCM.CON ---
<Elvia Meyers - Last Filed: 01/22/17 09:16> History of Present Illness - History of Present Illness History of Present Illness: 46 year old male patient with PMHx of anemia, GERD, aspiration pneumonia was seen at bedside this morning with attending Dr. Perez after request for podiatry consultation. Patient presents with painful equinus due to tight achilles tendon. Patient states that he feels pain in midfoot and ankle bilaterally when walking. Patient states that he had the pain for a long time and it is not acute. Patient's family member was present at bedside. Patient was advised to wear sneakers bilaterally when walking in the hospital. Patient denies of any other pedal complaints. Patient denies of any N/V/F/C or SOB today Past Patient History - Infectious Disease Hx of Infectious Diseases: None - Tetanus Immunizations Tetanus Immunization: Unknown - Past Social History Smoking Status: Never Smoked - CARDIAC Hx Cardiac Disorders: Yes - PULMONARY Hx Respiratory Disorders: Yes Other/Comment: aspiration pneumonia - NEUROLOGICAL Hx Neurological Disorder: No - HEENT Hx HEENT Problems: No - RENAL Hx Chronic Kidney Disease: No - ENDOCRINE/METABOLIC Hx Endocrine Disorders: No - HEMATOLOGICAL/ONCOLOGICAL Hx Blood Disorders: Yes Hx Anemia: Yes Hx Blood Transfusions: Yes Hx Blood Transfusion Reaction: (NOT KNOWN) - INTEGUMENTARY Hx Dermatological Problems: No Other/Comment: MULTIPLE SCARRING TO ABDOMINAL AREA FROM MULTIPLE ABDOMINAL SURGERIES - MUSCULOSKELETAL/RHEUMATOLOGICAL Hx Falls: No - GASTROINTESTINAL Hx Gastrointestinal Disorders: Yes (MULTIPLE ABDOMINAL SX,SBO,ILLEUS,.H/O COLOSTOMY-REVERSED) - GENITOURINARY/GYNECOLOGICAL Hx Genitourinary Disorders: No Hx Reproductive Disorders: No - PSYCHIATRIC Hx Psychophysiologic Disorder: Yes Hx Anxiety: Yes Hx Depression: Yes Hx Substance Use: No - SURGICAL HISTORY Other/Comment: intestinal - ANESTHESIA Hx Anesthesia Reactions: No Hx Malignant Hyperthermia: No Meds Allergies/Adverse Reactions: Allergies Allergy/AdvReac Type Severity Reaction Status Date / Time No Known Allergies Allergy Verified 01/16/17 22:20 - Medications Medications: Current Medications Calcium/Vitamin D (Oscal-D 250 Mg-125 Units Tab) 1 tab PO DAILY [facility] PRN Reason: Protocol Last Admin: 01/21/17 09:33 Dose: 1 tab Pantoprazole Sodium (Protonix 40mg Ivpb) 100 mls @ 200 mls/hr IVPB 0600,1800 [facility] Last Admin: 01/22/17 06:22 Dose: 200 mls/hr Metoclopramide HCl (Reglan) 5 mg PO ACHS [facility] Last Admin: 01/22/17 07:47 Dose: 5 mg Ondansetron HCl (Zofran Inj) 4 mg IVP Q6H PRN; Protocol PRN Reason: Nausea/Vomiting Polyethylene Glycol (Miralax) 17 gm PO BID [facility] Last Admin: 01/21/17 17:08 Dose: 17 gm Physical Exam - Constitutional Appears: Well, Non-toxic, No Acute Distress - Extremities Exam Additional comments: Bilateral lower extremity exam DERM: No open wound noted. Mild dryness noted to skin bilaterally consistent with xerosis. No erythema is noted. No drainage is noted. No acute infections is noted. VASC: Palpable DP and PT noted bilaterally 1/4, CERTIFIED SKI PATROLLER less than 3 seconds noted to all digits bilaterally. ORTHO: Pain on palpation noted bilateral med-foot as well as pain on passive dorsiflexion to bilateral ankles. Achilles tendon shortening is noted bilaterally with plantar flesxed feet at rest bilaterally. Prominent, tight tibialis anterior is noted bilaterally with anterior cavus foot deformity, suggestive of pseudoequinus bilaterally. NUEURO: Gross sensation intact bilaterally - Neurological Exam Neurological exam: Alert, Oriented x3 - Psychiatric Exam Psychiatric exam: Normal Affect, Normal Mood - Skin Skin Exam: Normal Color, Warm Results - Vital Signs Recent Vital Signs: Last Vital Signs Temp 98.4 F 01/22/17 06:30 Pulse 80 01/22/17 06:30 Resp 20 01/22/17 06:30 BP 100/76 01/22/17 06:30 Pulse Ox 97 01/22/17 06:30 - Labs Result Diagrams: 01/19/17 06:00 01/20/17 07:00 Assessment & Plan - Assessment and Plan (Free Text) Assessment: 46 year old male patient presenting with equinus feet bilaterally secondary to atrophy of soleus and gastroc muscles as well as Achilles tendon tightness. Plan: Patient was seen, evaluated with attending Dr. Perez All questions and concerns addressed labs and vitals reviewed Xrays ordered Physical therapy consulted; Achilles tendon stretching in [facility] Podiatry will continue to follow in house <Serene Perez - Last Filed: 01/30/17 12:53> Results - Vital Signs Recent Vital Signs: Last Vital Signs Temp 97.3 F L 01/23/17 16:00 Pulse 79 01/23/17 16:00 Resp 18 01/23/17 16:00 BP 94/61 L 01/23/17 16:00 Pulse Ox 99 01/23/17 16:00 - Labs Result Diagrams: 01/24/17 07:30 01/24/17 07:30 Attending/Attestation - Attestation I have personally seen and examined this patient.: Yes I have fully participated in the care of the patient.: Yes I have reviewed all pertinent clinical information: Yes
[2017-01-22] MEDS: POLYETHYLENE GLYCOL 3350 17 GM/Dose PACKET PO SCH ×2 (09:27→17:11)
[2017-01-22] MEDS: Calcium-Vit D 250 mg-125 Units Tab UD PO SCH (09:28)
[2017-01-22 11:11] VITALS: RESP 18
--- NOTE | 2017-01-22 13:58 | RAD ---
PROCEDURE: Bilateral Feet Radiographs. HISTORY: equinus pain COMPARISON: None. FINDINGS: BONES: Right Foot: Normal. No fracture. Left Foot: Normal. No fracture. JOINTS: Right Foot: Normal. No osteoarthritis. Left Foot: Normal. No osteoarthritis. SOFT TISSUES: Right Foot: Normal. Left Foot: Normal. OTHER FINDINGS: None. IMPRESSION: Normal radiographs of the feet.
--- NOTE | 2017-01-23 03:50 | PN ---
DATE: 01/22/2017 SUBJECTIVE: The patient is a 46-year-old male. The patient is seen and examined at the bedside, looks comfortable. No nausea, vomiting, or diarrhea, hematuria, or hematochezia. Sometimes complaining about the foot pain. No fever, no chills. PHYSICAL EXAMINATION: VITAL SIGNS: Temperature 97.6, pulse 85, blood pressure 95/51, respiratory rate 18. HEAD: Normocephalic, atraumatic. EYES: PERRLA, extraocular muscles intact, conjunctivae pink. Eyelids: Unremarkable. Nose: Patent. NECK: Supple. No carotid bruit. No JVD or thyromegaly. CHEST: Bilaterally symmetrical. HEART: S1, S2 positive. LUNGS: Clear to auscultation. ABDOMEN: Soft. Bowel sounds present. No organomegaly. EXTREMITIES: No edema, no cyanosis. NEUROLOGIC: The patient is awake, alert, moving all 4 extremities. No focal deficits. MEDICATIONS: MiraLAX, Os-Peter, Protonix, Reglan, Zofran. LABORATORY DATA: We do not have recent labs today, but I reviewed old labs. ASSESSMENT AND PLAN: The patient is a 46-year-old male with a history of anemia , history of hyponatremia, improved; hypocalcemia, GERD, history of aspiration pneumonia, was complaining of forefoot pain. Dr. Perez consult called. According to the gum machine operator, the patient has a tight Achilles tendon that is giving pain to the patient, especially when he is walking, bilaterally. X-ray of the foot was done that was within normal limits. The patient is seen by Dr. Davies, also. The patient was on a low-residue diet/soft diet. The patient was reluctant about pureed diet. The patient is given a soft/low-residue diet. The patient was educated to chew more, but the patient is mentally retarded and will not follow the instructions. The patient does have an ileocolonic anastomosis stricture, status post dilatation after 30 Canadian; could not be dilated further than that. Otherwise, that was bleeding secondary to dilatation , and also there is still persistent ulcer at the site. want to repeat the dilatation in a few weeks. Meanwhile, continue present treatment. Podiatry is on the case. Repeat labs. We will follow. Meme Rey MD cc: [id number] TT: 01/23/2017 00:53:29 Confirmation # [id number] Dictation # [id number] 01/23/2017 02:49:15 KAVYA
[2017-01-23] MEDS: Pantoprazole 40mg/100ml IVPB 100 ML IVPB SCH ×2 (06:15→17:17)
[2017-01-23] MEDS: Calcium-Vit D 250 mg-125 Units Tab UD PO SCH (10:17)
[2017-01-23] MEDS: POLYETHYLENE GLYCOL 3350 17 GM/Dose PACKET PO SCH ×2 (10:17→17:16)
--- NOTE | 2017-01-23 12:22 | CP.PCM.PN ---
<Elvia Meyers - Last Filed: 01/23/17 12:19> Subjective - Date & Time of Evaluation Date of Evaluation: 01/23/17 Time of Evaluation: 10:40 - Subjective Subjective: 46 year old male patient with PMHx of anemia, GERD, aspiration pneumonia was seen at bedside this morning concerning bilateral ankle equinus. Patient was resting comfortably in bed at the time of visit, AAO x3. Xray result of bilateral feet were discussed with the patient (No osseous deformity of ankle preventing dorsiflexion, no acute fracture). Patient was explained of the etiology behind the limited ankle range of motion and that he needs physical threapy treatment. Patient understands and agrees with the plan. Patient denies of any other pedal complaints. Patient denies of any N/V/F/C or SOB today Objective - Vital Signs/Intake and Output Vital Signs (last 24 hours): Temp Pulse Resp BP Pulse Ox 98 F 106 H 18 90/59 L 96 01/23/17 10:00 01/23/17 10:00 01/23/17 10:00 01/23/17 10:00 01/23/17 10:00 Intake and Output: 01/23/17 01/23/17 06:59 18:59 Intake Total 420 Output Total 550 Balance -130 - Medications Medications: Current Medications Calcium/Vitamin D (Oscal-D 250 Mg-125 Units Tab) 1 tab PO DAILY [facility] PRN Reason: Protocol Last Admin: 01/23/17 10:17 Dose: 1 tab Pantoprazole Sodium (Protonix 40mg Ivpb) 100 mls @ 200 mls/hr IVPB 0600,1800 [facility] Last Admin: 01/23/17 06:15 Dose: 200 mls/hr Metoclopramide HCl (Reglan) 5 mg PO ACHS [facility] Last Admin: 01/23/17 12:07 Dose: 5 mg Ondansetron HCl (Zofran Inj) 4 mg IVP Q6H PRN; Protocol PRN Reason: Nausea/Vomiting Polyethylene Glycol (Miralax) 17 gm PO BID [facility] Last Admin: 01/23/17 10:17 Dose: 17 gm - Labs Labs: 01/19/17 06:00 01/20/17 07:00 PT 11.8 Seconds (9.9-11.8) 01/20/17 07:00 INR 1.09 (0.93-1.08) H 01/20/17 07:00 APTT 26.9 Seconds (23.7-30.8) 01/19/17 14:00 - Constitutional Appears: Well, Non-toxic, No Acute Distress - Extremities Exam Additional comments: Bilateral lower extremity exam DERM: No open wound noted. Mild dryness noted to skin bilaterally consistent with xerosis. No erythema is noted. No drainage is noted. No acute infections is noted. VASC: Palpable DP and PT noted bilaterally 1/4, FORKLIFT MECHANIC less than 3 seconds noted to all digits bilaterally. ORTHO: Pain on palpation noted bilateral med-foot as well as pain on passive dorsiflexion to bilateral ankles. Achilles tendon shortening is noted bilaterally with plantar flesxed feet at rest bilaterally. Prominent, tight tibialis anterior is noted bilaterally with anterior cavus foot deformity, suggestive of pseudoequinus bilaterally. NUEURO: Gross sensation intact bilaterally - Neurological Exam Neurological Exam: Alert, Awake, Oriented x3 - Psychiatric Exam Psychiatric exam: Normal Affect, Normal Mood - Skin Skin Exam: Normal Color, Warm Assessment and Plan - Assessment and Plan (Free Text) Assessment: 46 year old male patient presenting with equinus feet bilaterally secondary to atrophy of soleus and gastroc muscles as well as Achilles tendon tightness. Plan: Patient was seen, evaluated this AM discussed with Dr. Wilson All questions and concerns addressed labs and vitals reviewed Xrays reveal no osseous deformities causing equinus, no fx Continue Physical therapy; Achilles tendon stretching in [facility] Podiatry will continue to follow in house <Marlon Wilson - Last Filed: 01/23/17 17:18> Objective - Vital Signs/Intake and Output Vital Signs (last 24 hours): Temp Pulse Resp BP Pulse Ox 97.3 F L 79 18 94/61 L 99 01/23/17 16:00 01/23/17 16:00 01/23/17 16:00 01/23/17 16:00 01/23/17 16:00 Intake and Output: 01/23/17 01/23/17 06:59 18:59 Intake Total 420 Output Total 550 Balance -130 - Medications Medications: Current Medications Calcium/Vitamin D (Oscal-D 250 Mg-125 Units Tab) 1 tab PO DAILY [facility] PRN Reason: Protocol Last Admin: 01/23/17 10:17 Dose: 1 tab Pantoprazole Sodium (Protonix 40mg Ivpb) 100 mls @ 200 mls/hr IVPB 0600,1800 [facility] Last Admin: 01/23/17 06:15 Dose: 200 mls/hr Metoclopramide HCl (Reglan) 5 mg PO ACHS [facility] Last Admin: 01/23/17 12:07 Dose: 5 mg Ondansetron HCl (Zofran Inj) 4 mg IVP Q6H PRN; Protocol PRN Reason: Nausea/Vomiting Polyethylene Glycol (Miralax) 17 gm PO BID [facility] Last Admin: 01/23/17 10:17 Dose: 17 gm - Labs Labs: 01/19/17 06:00 01/20/17 07:00 PT 11.8 Seconds (9.9-11.8) 01/20/17 07:00 INR 1.09 (0.93-1.08) H 01/20/17 07:00 APTT 26.9 Seconds (23.7-30.8) 01/19/17 14:00 Attending/Attestation - Attestation I have personally seen and examined this patient.: Yes I have fully participated in the care of the patient.: Yes I have reviewed all pertinent clinical information, including history, physical exam and plan: Yes
--- NOTE | 2017-01-23 14:48 | PN ---
DATE: 01/23/2017 Seen and examined at the bedside earlier today. The patient is reported to have pasty bowel movement . No blood. He is tolerating the diet. The patient denies any nausea, vomiting, or abdominal pain. VITAL SIGNS: Temperature is 98, blood pressure is 90/59, pulse 106, respirations 18, 96% room air. No new labs are noted for today. PHYSICAL EXAMINATION: HEENT: Sclera is anicteric. NECK: Supple. CARDIAC: S1, S2. LUNG SOUNDS: Clear. ABDOMEN: With bowel sounds, soft, nontender. No rebound or guarding. EXTREMITIES: No edema. ASSESSMENT: A 46-year-old male with history of recurrent small bowel obstruction and multiple abdomi nal surgeries, status post flexible sigmoidoscopy, found to have anastomotic narrowing. He is status post colonic dilatation. He also has history of gastroesophageal reflux disease. PLAN: Continue the heart, soft, low residual diet. Continue MiraLax b.i.d. He is currently on Prot jeaneth. Will change the Protonix to 20 daily and likely will plan for repeat dilatation in a few weeks . The patient was seen and case discussed with Dr. Davies. Samantha MONTES cc: [id number] TT: 01/23/2017 14:48:10 Confirmation # [id number] Dictation # [id number] en
[2017-01-23 16:38] VITALS: BP 94/61; PULSE 79; TEMP 97.3; O2SAT 99
--- NOTE | 2017-01-23 22:05 | PN ---
DATE: 01/23/2017 SUBJECTIVE: The patient was seen and examined on the bedside, looks comfortable. No nausea, vomitin g, or diarrhea. No hematuria or hematochezia. No swelling of the leg. No chest pain, no palpitatio n, no fever. Does not look like toxic. The patient is reported to have pasty bowel movements, no bl ood in the bowel movement. Tolerating diet. The patient is denying any nausea and vomiting. PHYSICAL EXAMINATION: VITAL SIGNS: Temperature 98, blood pressure 90/59, pulse oximetry 102, respiratory rate 18, and oxyg en 96% on room air. LABORATORY DATA: We do not have recent labs today, but I reviewed old labs. PHYSICAL EXAMINATION HEENT: Head normocephalic, atraumatic. Eyes: PERRLA. Extraocular muscles intact. Conjunctivae pi nk. Eyelids unremarkable. Nose patent. Mucous membranes moist. NECK: Supple. No carotid bruit, JVD, or thyromegaly. CHEST: Bilaterally symmetrical. HEART: S1, S2 positive. LUNGS: Clear to auscultation. ABDOMEN: Soft. Bowel sounds positive. No organomegaly. EXTREMITIES: No edema, no cyanosis. NEUROLOGIC: The patient is awake, alert, moving all 4 extremities. No focal deficit. MEDICATIONS: Reviewed by me ASSESSMENT: The patient is a 46-year-old male with recurrent small-bowel obstruction, multiple abdom inal surgeries, multiple times with hospitalization, history of anemia, blood transfusion, status pos t flexible sigmoidoscopy and found to have anastomotic stricture. He is status post colonic dilatati on by Dr. Davies. He has a history of gastroesophageal reflux disease. PLAN: To continue present treatment. Continue MiraLAX, Protonix for GI prophylaxis. Dr. Davies i s planning to repeat the dilatation in a few weeks, Meanwhile he is getting physical therapy. Gastr ointestinal and deep venous thrombosis prophylaxis. Repeat labs. We will follow up. Meme Rey MD cc: [id number] TT: 01/23/2017 22:05:18 Confirmation # [id number] Dictation # [id number] ln
[2017-01-24] MEDS: Pantoprazole 40mg/100ml IVPB 100 ML IVPB SCH ×2 (05:49→17:02)
[2017-01-24 08:36] LABS: HEMATOCRIT 33.5 % (42.0-52.0); MEAN CELL VOLUME 93.3 fL (80.0-105.0); MEAN CORPUSCULAR HEMOGLOBIN 30.6 pg (25.0-35.0); MEAN CORPUSCULAR HGB CONC 32.8 g/dl (31.0-37.0); MEAN PLATELET VOLUME 9.3 fl (7.0-11.0); RED CELL DISTRIBUTION WIDTH 15.5 % (11.5-14.5)
[2017-01-24 08:48] LABS: BLOOD UREA NITROGEN 13 mg/dL (7-21); CALCIUM 8.1 mg/dL (8.4-10.5); CARBON DIOXIDE 20 mmol/L (21-33); CHLORIDE 107 mmol/L (95-110); GFR AFRICAN-AMERICAN > 60; GLUCOSE,RANDOM 113 mg/dL (70-110); POTASSIUM 3.9 mmol/L (3.6-5.0); SODIUM 132 mmol/L (132-148)
--- NOTE | 2017-01-24 09:47 | CP.PCM.PCO ---
Physician Communication Note - Physician Communication Note Physician Communication Note: OK For d/c home-Rep sigmoid/Dilation 2-3weeks
[2017-01-24] MEDS: Calcium-Vit D 250 mg-125 Units Tab UD PO SCH (10:06)
[2017-01-24] MEDS: POLYETHYLENE GLYCOL 3350 17 GM/Dose PACKET PO SCH ×2 (10:06→17:01)
--- NOTE | 2017-01-24 16:25 | PN ---
DATE: 01/24/2017 SUBJECTIVE: This patient was seen and evaluated earlier. The patient is now tolerating the soft t, bowel movements 2-3 times, soft. No complaints of abdominal pain. Abdomen appears flat. No comp laints of any abdominal pain. PHYSICAL EXAMINATION: VITAL SIGNS: Temperature is 97.3, blood pressure 94/61, pulse 79, respirations 18. HEENT: Atraumatic, anicteric. NECK: Supple. HEART: S1, S2 heard. LUNGS: Bilateral normal vesicular breath sounds. EXTREMITIES: No edema. No cyanosis. LABORATORY DATA: Hemoglobin 11, hematocrit 33.5. WBC 7.0, platelets 335. Albumin is only 1.7. The patient would benefit from the nutritional supplement. Albumin is only 1.7. IMPRESSION AND PLAN: Status post dilation of the anastomotic stricture, dilates up to a 30-Cymro. The patient is on soft diet. His albumin is 1.7, may benefit from a nutritional supplement. The pat ient would need a repeat flex sig and dilation in 2-3 weeks' time. Thank you very much for allowing us to participate in the care of the patient. Cristiane Davies MD cc: [id number] TT: 01/24/2017 16:24:24 Confirmation # [id number] Dictation # [id number] luis
--- NOTE | 2017-02-16 11:56 | DS ---
CHIEF COMPLAINT: Abdominal pain, nausea and vomiting. HISTORY OF PRESENT ILLNESS: The patient is a 46-year-old male with multiple medical problems: Mentally retarded, history of multiple times intestinal obstruction, multiple abdominal surgeries, severe anemia, status post multiple times blood transfusions, history of severe constipation. Came with intractable nausea, vomiting, and had small bowel obstruction. GI and surgical consult called. NG tube started. Made patient n.p.o. After a couple of days, the patient got better. Sigmoidoscopy done and showed ulcers at the anastomotic site and stenosis. The patient improved. Then liquids started. Tolerating liquid very well. Transferred to TCU for continuity of care. In TCU patient, he got physical therapy, reconditioned, got better, tolerated food very well. Sent home with family. Prescription of medications given. 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 PAST MEDICAL HISTORY: As above. Aspiration pneumonia, anemia, multiple blood transfusions, multiple times of abdominal surgery. FAMILY HISTORY: Unknown. HABITS: No smoking, no drugs, no ethanol. ALLERGIES: The patient is not allergic with any medications. REVIEW OF SYSTEMS: The patient was seen and examined on the bedside. Looks comfortable. No nausea, vomiting, or diarrhea. No hematuria or hematochezia. No swelling of the legs. No chest pain, no palpitation. Tolerating food very well. PHYSICAL EXAMINATION: VITAL SIGNS: Temperature 97.3, pulse 79, blood pressure 94/50, respiratory rate 18. HEENT: Head normocephalic, atraumatic. Eyes: PERRLA. Extraocular muscles intact. Conjunctivae are clear. Nose patent. Mucous membranes moist. NECK: Supple. No carotid bruit, JVD or thyromegaly. CHEST: Bilaterally symmetrical. HEART: S1, S2 positive. LUNGS: Bilateral normal vesicular breath sounds. ABDOMEN: Soft. Bowel sounds positive. No organomegaly. Surgical incision area looks healthy. EXTREMITIES: No edema, no cyanosis. LABORATORY DATA: Hemoglobin 11, hematocrit 33.5, white blood cells 7.0, platelets 335, albumin 1.7. MEDICATIONS: Reviewed by me. MiraLax, Protonix. ASSESSMENT AND PLAN: The patient is a 47-year-old male with multiple medical problems: Status post dilatation of the anastomotic stricture, dilated up to a 30-Wallisian; The patient is on soft diet. According to gastrointestinal, patient will get benefit of nutrition supplement. The patient needs a repeat flexible sigmoidoscopy and dilation in 2-3 weeks' time. I reviewed Dr. Andres Henson ' communication report. Okay to discharge home. Repeat sigmoidoscopy and dilation in 2-3 weeks. The patient is mentally challenged, history of severe anemia, multiple abdominal surgeries, multiple times small bowel obstructions and chronic constipation, post colonic dilation by Dr. Davies, history of gastroesophageal reflux disease, dyspepsia. Discharged home. Continue MiraLax , Protonix. Got physical therapy, improved. Will follow up as outpatient. Meme Rey MD cc: [id number] TT: 02/16/2017 11:55:45 tatiana HOFF
== END 2017-01-24 18:29 | disposition home or self-care (01) | DRG 394 ==
LOC: TRCU 18:49
PROVIDERS: ADMIT Internal Medicine; ATTEND Internal Medicine
PROC: F07Z9FZ Gait Training/Functional Ambulation Treatment using Assistive, Adaptive, Supportive or Protective Equipment (ICD-10-PCS; principal; 2017-01-18)
PROC: F07Z5FZ Bed Mobility Treatment using Assistive, Adaptive, Supportive or Protective Equipment (ICD-10-PCS; 2017-01-18)
PROC: F07Z8FZ Transfer Training Treatment using Assistive, Adaptive, Supportive or Protective Equipment (ICD-10-PCS; 2017-01-18)
PROC: F07L6YZ Therapeutic Exercise Treatment of Musculoskeletal System - Lower Back / Lower Extremity using Other Equipment (ICD-10-PCS; 2017-01-18)
PROC: F08Z3ZZ Feeding/Eating Treatment (ICD-10-PCS; 2017-01-23)
PROC: F08Z2ZZ Grooming/Personal Hygiene Treatment (ICD-10-PCS; 2017-01-23)
DX: K63.3 Ulcer of intestine (principal); K56.69 Other intestinal obstruction; E87.1 Hypo-osmolality and hyponatremia; E83.51 Hypocalcemia; K31.84 Gastroparesis; K21.9 Gastro-esophageal reflux disease without esophagitis; K59.09 Other constipation; M67.02 Short Achilles tendon (acquired), left ankle; M67.01 Short Achilles tendon (acquired), right ankle; F79 Unspecified intellectual disabilities; F41.9 Anxiety disorder, unspecified; D64.9 Anemia, unspecified; F32.9 Major depressive disorder, single episode, unspecified; Z87.01 Personal history of pneumonia (recurrent)

== ENCOUNTER 2017-01-20 11:57 | Day surgery (SDC) | payer MEDICARE, MEDICAID ==
[2017-01-19 13:39] VITALS: BMI 17.4
[2017-01-20] MEDS ORDERED: Propofol 10 mg/ml Inj (20 ML) ONE (14:10)
[2017-01-20] MEDS ORDERED: Iohexol 240 (50 ml) ONE (14:21)
[2017-01-20] MEDS ORDERED: ePHEDrine 50 mg/ml Inj ONE (14:53)
[2017-01-20] MEDS ORDERED: Lactated Ringer's 1,000 ML IV SCH (16:00)
[2017-01-20 16:57] VITALS: PULSE 61; RESP 20; TEMP 97.2; O2SAT 99
[2017-01-20 17:08] VITALS: BP 94/58
--- NOTE | 2017-01-21 10:58 | RAD ---
PROCEDURE: Fluoroscopy up to 1 hour HISTORY: DILITATION UNDER FLUORO COMPARISON: TECHNIQUE: Fluoroscopy was provided in the endoscopy suite. For minutes and 24 seconds of fluoroscopy time were used. Eight images were submitted FINDINGS: Study shows an endoscope in the pelvis and a balloon catheter inflated. IMPRESSION: As above
== END 2017-01-20 17:25 ==
LOC: ENDO 11:57
PROVIDERS: ATTEND Internal Medicine Gastroenterology
DX: K56.69 Other intestinal obstruction (principal)
CPT/HCPCS: 45340; 76000; J2704; J7120; Q9966

== ENCOUNTER 2017-03-13 10:31 | Day surgery (SDC) | payer MEDICARE, MEDICAID ==
[2017-01-19 13:39] VITALS: BMI 17.4
[2017-03-13] MEDS ORDERED: Iohexol 240 (50 ml) ONE (11:49)
[2017-03-13] MEDS ORDERED: Lidocaine 2% Inj (20ml) ONE (12:27)
[2017-03-13] MEDS ORDERED: Lactated Ringer's 1,000 ML IV SCH (13:05)
[2017-03-13 14:12] VITALS: BP 107/68; PULSE 86; RESP 16; TEMP 97.6; O2SAT 100
--- NOTE | 2017-03-16 13:40 | RAD ---
PROCEDURE: Fluoroscopy up to 1 hour HISTORY: DILITATION OF SIGMOID STRICTURE UNDER FLUORO COMPARISON: TECHNIQUE: Fluoroscopy was provided in the endoscopy suite. 2 minutes and 28 seconds of fluoroscopy time was used. Three images were submitted FINDINGS: The study shows a balloon catheter in the sigmoid colon IMPRESSION: As above
== END 2017-03-13 14:33 | disposition home or self-care (01) ==
LOC: ENDO 10:31
PROVIDERS: ATTEND Internal Medicine Gastroenterology
DX: K91.89 Other postprocedural complications and disorders of digestive system (principal); K56.69 Other intestinal obstruction; Y83.2 Surgical operation with anastomosis, bypass or graft as the cause of abnormal reaction of the patient, or of later complication, without mention of misadventure at the time of the procedure; Y92.9 Unspecified place or not applicable
CPT/HCPCS: 45340; 76000; C1726; J3010; J7040; J7120; Q9966

== ENCOUNTER 2017-04-03 14:44 | Emergency (ER) | payer MEDICARE, MEDICAID ==
[2017-04-03 14:44] VITALS: BMI 17.4
[2017-04-03 15:04] VITALS: BP 96/63; RESP 16; TEMP 97.8
--- NOTE | 2017-04-03 15:10 | ED PDOC ---
Arrival/HPI - General Chief Complaint: Upper Extremity Problem/Injury Time Seen by Provider: 04/03/17 14:46 Historian: Patient, Family (sister) - History of Present Illness Narrative History of Present Illness (Text): 04/03/17 15:09 This 47 year old male, whose past medical history includes intellectual disability, anemia, GERD, aspiration pneumonia, dyspepsia, and multiple abdominal surgery, is brought into the emergency department by sister c/o left wrist pain, and abrasion x 2 days. Sister stated patient had tripped and fell down 2 days ago. She did not know this till today. Sister also stated patient left wrist is on a wrist flexion position. Patient is unable to extend wrist. Sister denies other complains. Wrist pain is mild. Time/Duration: Other (2 days) Context: Home Past Medical History - Provider Review Nursing Documentation Reviewed: Yes - Infectious Disease Hx of Infectious Diseases: None - Tetanus Immunization Tetanus Immunization: Unknown - Cardiac Hx Pacemaker: No - Pulmonary Hx Respiratory Disorders: Yes Other/Comment: aspiration pneumonia - Neurological Hx Paralysis: No Other/Comment: As per patients family member mental retardation. - HEENT Hx HEENT Disorder: No - Renal Hx Renal Disorder: No - Endocrine/Metabolic Hx Endocrine Disorders: No - Hematological/Oncological Hx Blood Transfusions: Yes Hx Blood Transfusion Reaction: (NOT KNOWN) - Integumentary Hx Dermatological Disorder: Yes Other/Comment: MULTIPLE SCARRING TO ABDOMINAL AREA FROM MULTIPLE ABDOMINAL SURGERIES - Musculoskeletal/Rheumatological Hx Musculoskeletal Disorders: No - Gastrointestinal Hx Gastrointestinal Disorders: Yes (MULTIPLE ABDOMINAL SX,SBO,ILLEUS,.H/O COLOSTOMY-REVERSED) - Genitourinary/Gynecological Hx Genitourinary Disorders: No Hx Reproductive Disorders: No - Psychiatric Hx Emotional Abuse: No Hx Physical Abuse: No Hx Substance Use: No - Past Surgical History Past Surgical History: Non-Contributing - Surgical History Other/Comment: multi abdominal surgery - Anesthesia Hx Anesthesia Reactions: No Hx Malignant Hyperthermia: No - Suicidal Assessment Feels Threatened In Home Enviroment: No Family/Social History - Physician Review Nursing Documentation Reviewed: Yes Family/Social History: No Known Family HX Smoking Status: Never Smoked Hx Alcohol Use: No Hx Substance Use: No Hx Substance Use Treatment: No Allergies/Home Meds Allergies/Adverse Reactions: Allergies No Known Allergies Allergy (Verified 01/16/17 22:20) Review of Systems - Review of Systems Constitutional: Normal. absent: Fatigue, Weight Change, Fevers Eyes: Normal ENT: Normal Respiratory: Normal Cardiovascular: Normal Gastrointestinal: Normal Genitourinary Male: Normal Musculoskeletal: Other ((+) left wrist joint problem) Skin: Other ((+) left forearm abrasion, superficial) Neurological: Normal Endocrine: Normal Hemo/Lymphatic: Normal Psychiatric: Normal Physical Exam Vital Signs Temp Pulse Resp BP Pulse Ox 04/03/17 16:18 81 16 99 04/03/17 14:58 97.8 F 78 16 96/63 L 100 Temperature: Afebrile Blood Pressure: Normal Pulse: Regular Respiratory Rate: Normal Appearance: Positive for: Well-Appearing, Non-Toxic, Comfortable Pain Distress: None Mental Status: Positive for: other (His normal baseline) - Systems Exam Head: Present: Atraumatic, Normocephalic Pupils: Present: PERRL Extroacular Muscles: Present: EOMI Conjunctiva: Present: Normal Mouth: Present: Moist Mucous Membranes Neck: Present: Normal Range of Motion Respiratory/Chest: Present: Clear to Auscultation, Good Air Exchange. No: Respiratory Distress, Accessory Muscle Use Cardiovascular: Present: Regular Rate and Rhythm, Normal S1, S2. No: Murmurs Abdomen: Present: Normal Bowel Sounds. No: Tenderness, Distention, Peritoneal Signs Back: Present: Normal Inspection Upper Extremity: Present: NORMAL PULSES, Neurovascularly Intact, Capillary Refill < 2s, Other (Patient unable to extend left wrist. Patient is able to flex wrist). No: Cyanosis, Edema Lower Extremity: Present: Normal Inspection, NORMAL PULSES, Normal ROM, Neurovascularly Intact, Capillary Refill < 2 s. No: Edema, CALF TENDERNESS Neurological: Present: GCS=15, CN II-XII Intact, Speech Normal, Motor Func Grossly Intact, Normal Sensory Function, Normal Cerebellar Funct, Gait Normal, Other (see UE) Skin: Present: Warm, Dry, Normal Color. No: Rashes Psychiatric: Present: Alert, Oriented x 3 Medical Decision Making ED Course and Treatment: Discussed results and plan with patient and sister. Patient understands results and is agreeable with plan. All questions answered. Wrist velcro splint placed. Sister was recommended to have patient see orthopedist within a week. Re-evaluation Time: 15:55 Reassessment Condition: Re-examined, Improved - RAD Interpretation Narrative RAD Interpretations (Text): 04/05/17 18:08 wrist x-rays was negative for fx. Radiology Orders: 04/03/17 15:10 ELBOW LEFT 3 VIEWS ROUTINE [RAD] Stat WRIST, LEFT 3 VIEWS [RAD] Stat - Medication Orders Current Medication Orders: Discontinued Medications Tetanus/Reduced Diphtheria/Acell Pertussis (Boostrix Vaccine Inj) 0.5 ml IM .ONCE ONE Stop: 04/03/17 15:13 Last Admin: 04/03/17 15:45 Dose: 0.5 ml Disposition/Present on Arrival - Present on Arrival Any Indicators Present on Arrival: No History of DVT/PE: No History of Uncontrolled Diabetes: No Urinary Catheter: No History of Decub. 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 Use wrist splint. Avoid placing your wrist behind or in front of head. Return to emergency if symptoms worsen. Referrals: Meme Rey MD [Primary Care Provider] - Follow up with primary Willy Oropeza MD [Staff Provider] - Follow up with primary
[2017-04-03] MEDS ORDERED: TDAP Vaccine 0.5 mL Syr IM ONE (15:12)
[2017-04-03 16:19] VITALS: PULSE 81; O2SAT 99
--- NOTE | 2017-04-03 16:49 | RAD ---
PROCEDURE: Left Wrist Radiographs. HISTORY: wrist pain COMPARISON: None. FINDINGS: BONES: Bone alignment and mineralization are normal. No acute fracture. JOINTS: The proximal and distal carpal rows are maintained. No dislocation. SOFT TISSUES: Normal. OTHER FINDINGS: None. IMPRESSION: No acute fracture or dislocation.
--- NOTE | 2017-04-03 16:49 | RAD ---
PROCEDURE: Radiographs of the left elbow. HISTORY: Pain COMPARISON: No prior. FINDINGS: BONES: Bone alignment and mineralization are normal. No acute fracture. JOINTS: Normal. SOFT TISSUES: Normal. JOINT EFFUSION: None. OTHER FINDINGS: None IMPRESSION: No acute fracture or dislocation.
== END 2017-04-03 16:19 | disposition home or self-care (01) ==
LOC: ED 14:44
DX: G56.32 Lesion of radial nerve, left upper limb (principal); S50.812A Abrasion of left forearm, initial encounter; W01.0XXA Fall on same level from slipping, tripping and stumbling without subsequent striking against object, initial encounter; Y92.009 Unspecified place in unspecified non-institutional (private) residence as the place of occurrence of the external cause; Z23 Encounter for immunization; F79 Unspecified intellectual disabilities

== ENCOUNTER 2017-11-07 12:08 | Inpatient (IN) | payer MEDICARE, MEDICAID ==
--- NOTE | 2017-11-07 13:02 | ED PDOC ---
Arrival/HPI - General Chief Complaint: Weakness/Neurological Deficit Time Seen by Provider: 11/07/17 12:53 - History of Present Illness Narrative History of Present Illness (Text): 11/07/17 12:59 47 year old male with past medical history of intellectual disability, anemia, GERD, aspiration pneumonia, multiple abdominal surgeries, history of bowel obstructions, presents to ED with Iman, his sister, and domestic maid with history of swelling to his right leg noticed yesterday. Patient reportedly has been progressively weaker "for the past two weeks" as per Iman, but as per domestic maid he has been less active "since last ". Patient reportedly is typically ambulatory and active although for "several weeks" he "walks slower" and "hasn't been as active". They report decreased appetite. Patient denies nausea or vomiting. Patient denies abdominal pain. Patient denies any bloody urine or stool. 11/07/17 15:30 Time/Duration: Prior to Arrival, > month Symptom Onset: Gradual Past Medical History - Infectious Disease Hx of Infectious Diseases: None - Tetanus Immunization Tetanus Immunization: Unknown - Cardiac Hx Pacemaker: No - Pulmonary Hx Respiratory Disorders: Yes Other/Comment: aspiration pneumonia - Neurological Hx Paralysis: No Other/Comment: As per patients family member mental retardation. - HEENT Hx HEENT Disorder: No - Renal Hx Renal Disorder: No - Endocrine/Metabolic Hx Endocrine Disorders: No - Hematological/Oncological Hx Blood Transfusions: Yes Hx Blood Transfusion Reaction: (NOT KNOWN) - Integumentary Hx Dermatological Disorder: Yes Other/Comment: MULTIPLE SCARRING TO ABDOMINAL AREA FROM MULTIPLE ABDOMINAL SURGERIES - Musculoskeletal/Rheumatological Hx Musculoskeletal Disorders: No - Gastrointestinal Hx Gastrointestinal Disorders: Yes (MULTIPLE ABDOMINAL SX,SBO,ILLEUS,.H/O COLOSTOMY-REVERSED) Hx Colitis: Yes - Genitourinary/Gynecological Hx Genitourinary Disorders: No Hx Reproductive Disorders: No - Psychiatric Hx Emotional Abuse: No Hx Physical Abuse: No Hx Substance Use: No - Past Surgical History Past Surgical History: Non-Contributing - Surgical History Other/Comment: multi abdominal surgery - Anesthesia Hx Anesthesia Reactions: No Hx Malignant Hyperthermia: No - Suicidal Assessment Feels Threatened In Home Enviroment: No Family/Social History Family/Social History: Unknown Family HX Smoking Status: Never Smoked Hx Alcohol Use: No Hx Substance Use: No Hx Substance Use Treatment: No Allergies/Home Meds Allergies/Adverse Reactions: Allergies No Known Allergies Allergy (Verified 01/16/17 22:20) Home Medications: Home Meds Medication Instructions Recorded Confirmed Ergocalciferol (Vitamin D2) 50,000 units PO QWK 11/07/17 11/07/17 [Vitamin D2] Review of Systems - Review of Systems Constitutional: Fatigue. absent: Fevers Eyes: absent: Vision Changes ENT: absent: Hearing Changes, Sore Throat, Rhinorrhea, Sinus Congestion Respiratory: absent: SOB, Cough Cardiovascular: Edema, Calf Pain. absent: Chest Pain, REY Gastrointestinal: Diarrhea, Appetite Changes. absent: Nausea, Vomiting Genitourinary Male: absent: Dysuria, Frequency, Hematuria Musculoskeletal: Other (right leg pain and swelling). absent: Neck Pain Skin: Ulcer. absent: Rash Neurological: absent: Headache, Dizziness, Focal Weakness Endocrine: absent: Polyuria Hemo/Lymphatic: absent: Easy Bleeding Psychiatric: absent: Depression Physical Exam Vital Signs Reviewed: Yes Vital Signs Temp Pulse Resp BP Pulse Ox 11/07/17 20:00 66 15 85/58 L 98 11/07/17 18:10 88 12 98/68 L 97 11/07/17 16:00 110 H 18 94/63 L 98 11/07/17 14:08 89 17 84/53 L 98 11/07/17 12:08 97.4 F L 94 H 18 91/60 L 99 Temperature: Afebrile Blood Pressure: Hypotensive Appearance: Positive for: Ill-Appearing Mental Status: No: Agitated - Systems Exam Head: Present: Atraumatic Pupils: Present: PERRL Extroacular Muscles: Present: EOMI Mouth: Present: Dry. No: Drooling, Trismus Pharnyx: No: ERYTHEMA, EXUDATE Nose (Internal): Present: Normal Inspection, No Active Bleeding Neck: Present: Normal Range of Motion. No: Meningeal Signs, MIDLINE TENDERNESS Respiratory/Chest: Present: Clear to Auscultation. No: Respiratory Distress Cardiovascular: Present: Regular Rate and Rhythm, Murmurs Abdomen: Present: Normal Bowel Sounds, Scars. No: Tenderness, Distention, Peritoneal Signs Rectal: No: Occult Blood, Rectal Tenderness, Gross Blood, Melena Genitourinary Male: Present: Testicle Swelling. No: Penile Discharge, Testicle Tenderness, Penile Swelling Back: Present: Other (small ulcer to sacrum 2 cm diameter, no pus or drainage, small ulcer to mid upper back with no erythema or pus or drainage) Upper Extremity: No: Cyanosis Lower Extremity: Present: Edema, Tenderness, Swelling, Other (patient with edema to right lower extremity from foot/ankle/knee/thigh with erythema and clear drainage from hoskins edema, no pus or drainage or fluctuance) Neurological: Present: Motor Func Grossly Intact, Normal Sensory Function Skin: Present: Pale Psychiatric: Present: Alert Medical Decision Making ED Course and Treatment: 11/07/17 18:04 Patient is a 47 yo male with extensive past medical history with most recent hospitalizations reviewed. Patient is initially present with his sister who supplements history and also with a domestic maid who has been caring him for quite some time and also supplements history. On exam, he denies any chest pain or shortness of breath with multiple history taking. He is not hypoxic. He denies any chest pain or pleuritic discomfort. He has multiple abdominal surgeries but currently denies abdominal pain, and abdomen is soft and nondistended. Rectal exam reveals no melena or bloody stool. He is hypotensive although review of prior visits and prior vital signs reveal patient typically is noted to have lower SBP 90s-100s. No active bleeding noted with serial exams. On exam he had edema noted to one leg. PER PRELIMINARY REPORT BY ME[employer], patient has "extensive DVT of the left lower extermity". Ultrasound report reviewed with PMD Dr. Rey, patient, sister and domestic maid. I discussed anticoagulation with patient and family, specifically risks of bleeding. As he has baseline anemia with no active bleeding at this time, Heparin bolus and drip ordered. Dr. Ziegler updated with treatment plan. Patient also initiated on iv antibiotics for possible component of cellulitis. Small ulcers noted to back as well. He is afebrile and with serial exams exhibits no tachypnea or hypoxia or chest pain or shortness of breath. Patient will be admitted to telemetry bed due to extensive dvt and associated comorbities on Heparin. I have communicated with Dr. Rey current treatment plan, care turned over to admitting physician at 1800. 11/07/17 18:11 Hyponatremia noted. Patient has urine output. Denies headache or tremors or nausea. Will request re-evaluation of electrolytes and monitoring of hyponatremia. 11/07/17 18:[address] Rey will all labs including sodium levels. Re-evaluated patient no headache or nausea or lethary or altered mental status. 11/07/17 18:44 Based on hyponatremia and extensive dvt, case reviewed with structural metal fabricator apprentice Dr. Garcia. CT angio chest requested. Patient receiving heparin. 11/07/17 19:16 Patient accepted to ICU by Dr. Garcia. - Lab Interpretations Lab Results: 11/07/17 14:27 11/07/17 14:27 Lab Results 11/07/17 14:27: Sodium 120 L, Chloride 98, Potassium 4.2, Carbon Dioxide 19 L, Anion Gap 7 L, BUN 19, Creatinine 0.7 L, Est GFR ( Amer) > 60, Est GFR ( Non-Af Amer) > 60, Random Glucose 86, Calcium 7.4 L, Total Bilirubin 0.4, AST 24 , ALT 49, Alkaline Phosphatase 94, Lactate Dehydrogenase 612, Total Creatine Kinase 44, Troponin I < 0.01 D, NT-Pro-B Natriuret Pep 118, Total Protein 4.2 L , Albumin 1.8 L, Globulin 2.5, Albumin/Globulin Ratio 0.7 L 11/07/17 14:27: pO2 39, VBG pH 7.29 L, VBG pCO2 42.0, VBG HCO3 20.2 L, VBG Total CO2 21.5 L, VBG O2 Sat (Calc) 67.3 H, VBG Base Excess -6.1 L, VBG Potassium 4.2, Sodium 122.0 L, Chloride 98.0, Glucose 94, Lactate 1.2, FiO2 21.0 , Venous Blood Potassium 4.2 11/07/17 14:27: PT 12.8 H, INR 1.12 H, APTT 28.5 11/07/17 14:27: WBC 6.0, RBC 3.54, Hgb 10.0 L, Hct 29.4 L, MCV 83.1, MCH 28.2, MCHC 34.0, RDW 14.6 H, Plt Count 184, MPV 9.5, Gran % 78.9 H, Lymph % (Auto) 12.0 L, Glasscock % (Auto) 8.7 H, Eos % (Auto) 0.2 L, Baso % (Auto) 0.2, Gran # 4.74 , Lymph # 0.7 L, Glasscock # 0.5, Eos # 0.0, Baso # 0.01 11/07/17 14:24: Blood Type O NEGATIVE, Antibody Screen Negative, BBK History Checked Patient has bt - RAD Interpretation Radiology Orders: 11/07/17 13:05 CHEST ONE VIEW [RAD] Stat 11/07/17 13:06 DUPLEX LOWER EXTRM VEIN RIGHT [US] Stat - EKG Interpretation EKG Interpretation (Text): EKG at 14:12 normal sinus rhythm rate of [address] elevations Interpreted by ED Physician: Yes Type: 12 lead EKG - Medication Orders Current Medication Orders: Heparin Sodium/Sodium Chloride (Heparin 33723 Units/250ml 1/2 Normal Saline) 25 ,000 units in 250 mls @ 8.083 mls/hr IV .Q24H PRN; Protocol; 18 UNITS/KG/HR PRN Reason: ADJUST RATE PER PROTOCOL Last Titration: 11/08/17 06:52 Dose: 20 units/kg/hr, 8.981 mls/hr Titration Intervention Document 11/08/17 06:52 PD (Rec: 11/08/17 06:52 PD [id number]) Titration Intake Container Volume 120 Titration Dosing Titration Dose 20 IV Rate 8.981 Intake/Decrease Started Sodium Chloride (Sodium Chloride 0.9%) 1,000 mls @ 100 mls/hr IV .Q10H ETHAN Last Admin: 11/08/17 10:04 Dose: 100 mls/hr eMAR Start Stop Document 11/08/17 10:04 PHANT (Rec: 11/08/17 10:05 PHANT [facility]) Intravenous Solution Start Date 11/08/17 Start Time 10:04 End Date 11/08/17 End time 20:04 Total Infusion Time 600 Vancomycin HCl (Vancomycin 1gm) 1 gm in 250 mls @ 167 mls/hr IVPB Q12H ETHAN PRN Reason: Protocol Stop: 11/17/17 10:01 Last Admin: 11/08/17 10:03 Dose: 167 mls/hr eMAR Start Stop Document 11/08/17 10:03 PHANT (Rec: 11/08/17 10:04 PHANT [facility]) Intravenous Solution Start Date 11/08/17 Start Time 10:03 End Date 11/08/17 End time 11:33 Total Infusion Time 90 Metoclopramide HCl (Reglan) 5 mg IVP ACHS ETHAN Last Admin: 11/08/17 07:56 Dose: 5 mg IVP Administration Document 11/08/17 07:56 PHANT (Rec: 11/08/17 07:56 PHANT [facility]) Charges for Administration # of IVP Administrations 1 Pantoprazole Sodium (Protonix Ec Tab) 40 mg PO DAILY [facility] Last Admin: 11/08/17 10:03 Dose: 40 mg Discontinued Medications Heparin Sodium (Porcine) (Heparin) 3,600 units 80 units/kg (3600 units) IV ONCE ONE PRN Reason: Protocol Stop: 11/07/17 14:23 Last Admin: 11/07/17 15:43 Dose: 3,600 units eMAR Start Stop Document 11/07/17 15:43 EWO (Rec: 11/07/17 15:43 EWO [id number]) Intravenous Solution Start Date 11/07/17 Start Time 15:43 End Date 11/07/17 End time 15:44 Total Infusion Time 1 MAR aPTT Document 11/07/17 15:43 EWO (Rec: 11/07/17 15:43 EWO [id number]) aPTT aPTT (secs) 28.5 Sodium Chloride (Sodium Chloride 0.9%) 1,000 mls @ 100 mls/hr IV .Q10H [facility] Last Admin: 11/07/17 14:58 Dose: 100 mls/hr eMAR Start Stop Document 11/07/17 14:58 EWO (Rec: 11/07/17 14:58 EWO [id number]) Intravenous Solution Start Date 11/07/17 Start Time 14:30 End Date 11/07/17 End time 18:00 Total Infusion Time 210 Ceftriaxone Sodium (Rocephin 1 Gram Ivpb) 1 gm in 100 mls @ 200 mls/hr IVPB ONCE STA PRN Reason: Protocol Stop: 11/07/17 15:47 Last Admin: 11/07/17 15:42 Dose: 200 mls/hr eMAR Start Stop Document 11/07/17 15:42 EWO (Rec: 11/07/17 15:42 EWO [id number]) Intravenous Solution Start Date 11/07/17 Start Time 15:42 End Date 11/07/17 End time 16:12 Total Infusion Time 30 Clindamycin Phosphate 600 mg/ (Sodium Chloride) 54 mls @ 108 mls/hr IVPB Q8 ETHAN PRN Reason: Protocol Last Admin: 11/08/17 06:31 Dose: 108 mls/hr eMAR Start Stop Document 11/08/17 06:31 PD (Rec: 11/08/17 06:32 PD [id number]) Intravenous Solution Start Date 11/08/17 Start Time 06:31 Potassium Chloride (K-Dur 20 Meq Er Tab) 40 meq PO BRK ONE Stop: 11/08/17 08:23 Last Admin: 11/08/17 10:03 Dose: 40 meq Disposition/Present on Arrival - Present on Arrival Any Indicators Present on Arrival: No History of DVT/PE: No History of Uncontrolled Diabetes: No Urinary Catheter: No History of Decub. Ulcer: No History Surgical Site Infection Following: None - Disposition Have Diagnosis and Disposition been Completed?: Yes Diagnosis: Hyponatremia, Anemia, DVT (deep venous thrombosis), Cellulitis Disposition: HOSPITALIZED Disposition Time: 17:00 Patient Plan: Admission, ICU Patient Problems: Current Active Problems Problem Status Onset Anemia Acute Cellulitis Acute DVT (deep venous thrombosis) Acute Hyponatremia Acute Condition: SERIOUS
[2017-11-07] MEDS ORDERED: Sodium Chloride 0.9% 1,000 ML IV SCH (13:15)
--- NOTE | 2017-11-07 14:49 | RAD ---
PROCEDURE: CHEST RADIOGRAPH, 1 VIEW HISTORY: Shortness of breath COMPARISON: 08/18/2016. FINDINGS: LUNGS: The lungs are well inflated and clear. PLEURA: No pneumothorax or pleural fluid seen. CARDIOVASCULAR: Normal. OSSEOUS STRUCTURES: No significant abnormalities. VISUALIZED UPPER ABDOMEN: Normal. OTHER FINDINGS: None. IMPRESSION: No active pulmonary disease.
[2017-11-07 15:06] LABS: BASO # 0.01 K/mm3 (0.0-2.0); BASO % 0.2 % (0.0-3.0); EOS % 0.2 % (1.5-5.0); GRAN # 4.74 (1.4-6.5); GRAN % 78.9 % (50.0-68.0); LYMPH # 0.7 (1.2-3.4); MEAN CELL VOLUME 83.1 fl (80.0-105.0); MEAN CORPUSCULAR HEMOGLOBIN 28.2 pg (25.0-35.0); MEAN PLATELET VOLUME 9.5 fl (7.0-11.0); MONO # 0.5 (0.1-0.6); MONO % 8.7 % (1.0-6.0); RBC 3.54 10^6/uL (3.5-6.1); RED CELL DISTRIBUTION WIDTH 14.6 % (11.5-14.5); VENOUS BLOOD GAS BASE EXCESS -6.1 mmol/L (0.0-2.0); VENOUS BLOOD GAS PO2 39 mm/Hg (30-55); VENOUS BLOOD PH 7.29 (7.32-7.43)
[2017-11-07] MEDS ORDERED: cefTRIAXone 1 gm 1 GM/100 ML BAG IVPB STA (15:18)
[2017-11-07 15:28] LABS: B-TYPE NATRIURETIC PEPTIDE 118 pg/mL (0-450); TROPONIN I < 0.01 ng/mL
[2017-11-07 15:35] LABS: INR 1.12 (0.93-1.08); PARTIAL THROMBOPLASTIN TIME 28.5 Seconds (25.1-36.5); PROTHROMBIN TIME 12.8 SECONDS (9.4-12.5)
[2017-11-07] MEDS: Heparin25000 units/250ml 1/2NS 25,000 UNITS/250 ML BAG IV PRN (15:43)
[2017-11-07 15:52] LABS: ALB/GLOB RATIO 0.7 (1.1-1.8); ALBUMIN 1.8 g/dL (3.0-4.8); ALT/SGPT 49 U/L (7-56); AST/SGOT 24 U/L (17-59); BLOOD UREA NITROGEN 19 mg/dL (7-21); CALCIUM 7.4 mg/dL (8.4-10.5); GFR AFRICAN-AMERICAN > 60; GFR NON-AFRICAN AMERICAN > 60
[2017-11-07] MEDS ORDERED: Iodixanol 320 MG/ML 100 ML BOTTLE IV ONE ×2 (18:49→19:38)
[2017-11-07] MEDS: Sodium Chloride 0.9% 1,000 ML IV SCH (21:29)
[2017-11-07 22:05] LABS: BLOOD UREA NITROGEN 17 mg/dL (7-21); CALCIUM 7.2 mg/dL (8.4-10.5); GFR AFRICAN-AMERICAN > 60; GFR NON-AFRICAN AMERICAN > 60
[2017-11-08 02:01] VITALS: BMI 17.4
[2017-11-08 06:22] LABS: BASO # 0.01 K/mm3 (0.0-2.0); BASO % 0.2 % (0.0-3.0); EOS % 0.7 % (1.5-5.0); GRAN # 2.79 (1.4-6.5); GRAN % 67.8 % (50.0-68.0); HEMOGLOBIN 8.5 g/dL (14.0-18.0); LYMPH # 0.9 (1.2-3.4); LYMPH % 21.1 % (22.0-35.0); MEAN CELL VOLUME 83.1 fl (80.0-105.0); MEAN CORPUSCULAR HEMOGLOBIN 27.7 pg (25.0-35.0); MEAN CORPUSCULAR HGB CONC 33.3 g/dl (31.0-37.0); MEAN PLATELET VOLUME 9.9 fl (7.0-11.0); MONO # 0.4 (0.1-0.6); MONO % 10.2 % (1.0-6.0); RBC 3.07 10^6/uL (3.5-6.1); RED CELL DISTRIBUTION WIDTH 14.9 % (11.5-14.5); WHITE BLOOD COUNT 4.1 10^3/ul (4.5-11.0)
[2017-11-08 06:25] LABS: BLOOD UREA NITROGEN 14 mg/dL (7-21); CALCIUM 7.2 mg/dL (8.4-10.5); GFR AFRICAN-AMERICAN > 60; GFR NON-AFRICAN AMERICAN > 60
--- NOTE | 2017-11-08 07:16 | CON ---
PULMONARY CONSULTATION DATE: 11/07/2017 REFERRING PHYSICIAN: Meme Rey MD REASON FOR CONSULT: Right leg DVT, may have cellulitis, anemia, history of recurrent pneumonia, recurrent small bowel obstruction, intellectually disable, brought in by the sister and digital retoucher because could not walk has difficulty with the leg, found to have whole right leg erythema with behind the knee skin irritation. Also has some scratch on the front of the knee, had a venous Doppler done, which shows DVT involving the whole right leg. There is no much cough. No shortness of breath. No nausea or vomiting. No diarrhea reported. PAST MEDICAL HISTORY: Intellectually disable, anemia, recurrent aspiration, GERD, recurrent bowel obstruction. ALLERGIES: NONE KNOWN. SOCIAL HISTORY: Nonsmoker and nondrinker. FAMILY HISTORY: No significant cardiopulmonary disease reported. MEDICATIONS: He is on heparin weight base protocol, Protonix 40 mg daily, Reglan 5 mg IV a.c. and at bedtime, also getting IV fluid normal saline 100 mL per hour and received one dose of Rocephin. REVIEW OF SYSTEMS: No headache, no rhinitis. Not much cough. No shortness of breath. No chest pain. No abdominal pain. No dysuria. Left leg is okay, right leg diffuse erythema and swelling, tender to touch. Neurologically, awake, alert, and follow simple commands. LABORATORY DATA: Shows hemoglobin is 10.0, hematocrit 29.4, WBC 6.0, and platelet is 184. INR is 1.12 and PTT 29. VBG shows PA 7.29, PCO2 of 42 and O2 of 39. Sodium 120, potassium 4.2, chloride 98, bicarbonate 19, BUN 19, creatinine 0.7, glucose 86, and calcium 7.4. Total bilirubin 0.4. AST 24, ALT 49 and alkaline phosphatase is 94. Troponin less than 0.01. ProBNP is 118. Albumin is 1.8. Chest x-ray done in ER shows no active pulmonary disease. Venous Doppler official report is pending, but reported that whole right leg has a DVT. IMPRESSION AND PLAN: Deep vein thrombosis can rule out cellulitis, recurrent aspiration pneumonia, recurrent bowel obstruction, intellectually disable. Case discussed with ER physician. I agree weight base heparin protocol. There is no sign of shortness of breath or chest pain. I will not do VQ scan or CT. We will treat him with a full heparin dose. Follow up H&H. Keep head at 45 degrees. Supplement oxygen 2 L. May use nebulizer treatment p.r.n. basis. Elevate right lower extremity. We will also start him on clindamycin IV. Follow up labs in the morning. Thank you and we will follow with you. Eber Ziegler MD
[2017-11-08] MEDS ORDERED: Potassium Chloride 20 mEq ER Tab PO ONE (08:22)
--- NOTE | 2017-11-08 09:30 | PN ---
DATE: 11/08/2017 MED AIDE NOTE SUBJECTIVE: The patient is resting in bed, very comfortable, awake and alert, responds appropriately. The patient has no complaints of shortness of breath, cough, wheezing or chest congestion. No chest pain. No fever, chills, nausea or vomiting. He continues to have some discomfort in the right lower extremity with little swelling and significant erythema. PHYSICAL EXAMINATION: VITAL SIGNS: Note that his temperature is 98.4, pulse is 99, respirations are 11, and BP is 79/45. O2 saturation is 99% on room air. HEENT: Head is atraumatic, normocephalic. Eyes are reactive to light. Ears, nose and throat seemed to be within normal limits. NECK: Supple. No JVD. No thyroid enlargement, no lymph nodes. HEART: Has regular rate and rhythm. Normal S1 and S2. LUNGS: Reveal good breath sounds bilaterally. ABDOMEN: Soft. Decreased bowel sounds. GENITALIA AND RECTAL: Deferred. MUSCULOSKELETAL: No joint deformities. EXTREMITIES: Reveal right lower extremity with swelling and significant erythema. NEUROLOGIC: He seemed to be grossly intact. LABORATORY DATA: His white count is 4.1, hemoglobin is 8.5, and hematocrit is 25.5 with platelets of 179,000. PTT is 50.5. His sodium is 124, potassium is 3.5, chloride is 105, CO2 of 16 with BUN of 14 and creatinine of 0.6 and glucose of 60. IMPRESSION: This patient has an extensive right lower extremity deep vein thrombosis. It is also noted that he has cellulitis in that right lower extremity. He has anemia and long history of multiple abdominal surgeries and bowel obstruction in the past. It is noted that he has decreased blood pressure and his hyponatremia is improving with normal saline. The patient has a decreased appetite and has had weight loss. 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 The patient has a history of gastroesophageal reflux disease as well. PLAN: We will continue to monitor his hemoglobin closely. The patient is to get a stool guaiac and may be we will type and cross matched for packed red blood cells. The patient will get a consult with Dr. Juan Easley for possible IVC filter placement. We will continue with the antibiotics of metronidazole as well as clindamycin and the patient is on IV heparin as well as sodium chloride IV. We will continue Protonix and Reglan and continue to treat aggressively along with the other consultants and the primary care doctor. Phu Garcia MD
[2017-11-08] MEDS ORDERED: Pantoprazole 40 mg EC Tab PO SCH (10:00)
[2017-11-08] MEDS: Vancomycin 1gm in NS 250ml 1 GM/250 ML BAG IVPB SCH ×2 (10:03→22:43)
[2017-11-08] MEDS: Sodium Chloride 0.9% 1,000 ML IV SCH ×2 (10:04→23:08)
[2017-11-08 13:26] LABS: BASO # 0.01 K/mm3 (0.0-2.0); BASO % 0.2 % (0.0-3.0); EOS % 0.3 % (1.5-5.0); GRAN # 4.45 (1.4-6.5); GRAN % 76.3 % (50.0-68.0); HEMOGLOBIN 9.4 g/dL (14.0-18.0); LYMPH # 0.9 (1.2-3.4); LYMPH % 15.8 % (22.0-35.0); MEAN CELL VOLUME 84.5 fl (80.0-105.0); MEAN CORPUSCULAR HGB CONC 33.1 g/dl (31.0-37.0); MEAN PLATELET VOLUME 9.5 fl (7.0-11.0); MONO # 0.4 (0.1-0.6); MONO % 7.4 % (1.0-6.0); RBC 3.36 10^6/uL (3.5-6.1); RED CELL DISTRIBUTION WIDTH 15.1 % (11.5-14.5); WHITE BLOOD COUNT 5.8 10^3/ul (4.5-11.0)
--- NOTE | 2017-11-08 19:35 | CARD ---
APPROVED REPORT EKG Measurement Heart [id number] <Conclusion> Normal sinus rhythm Normal ECG
--- NOTE | 2017-11-08 20:17 | CON ---
DATE: 11/08/2017 LOCATION: The patient is seen in the ICU 128, bed 7. CHIEF COMPLAINT: Right leg erythema times several days' duration. HISTORY OF PRESENT ILLNESS: This is a 47-year-old male with anemia and GERD, with patient who has mental retardation with past medical history of anxiety, has had multiple abdominal surgeries and hernia repair, was admitted through the Emergency Room, seen by Dr. Goyo Espinoza. The patient was admitted because of weakness. REVIEW OF SYSTEMS: Reveals no fevers, no chills, no nausea, and no vomiting. He does have right lower leg pain, for which he has had most recent hospitalization. PAST MEDICAL HISTORY: Significant for anemia, GERD, medically challenged, anxiety, recurrent pneumonias, history of small bowel obstruction and intellectually disabled. PAST SURGICAL HISTORY: Significant for hernia surgery and multiple abdominal surgeries. ALLERGIES: THE PATIENT HAS NO KNOWN ALLERGIES. MEDICATIONS AT HOME: Include vitamins, Protonix, Reglan, and vitamin D. PHYSICAL EXAMINATION: GENERAL: The patient is in bed, answering questions, awake and alert. VITAL SIGNS: Temperature of 98; heart rate of 99, up to 110; respiratory rate of 12 and was up to 24; blood pressure is 90, was down to 79 and 82 systolic. HEENT: Unremarkable. NECK: Supple. LUNGS: Have decreased breath sounds. HEART: Normal S1, S2. ABDOMEN: Soft, nontender. No rebound or guarding. EXTREMITIES: Examination of the leg reveals erythema of the right leg, no discharge. LABORATORY EXAMINATION: Reveals the patient's white count of 6.0, hemoglobin of 10, platelets of 184. Coagulation and BUN of 19, creatinine of 0.7. BNP is 118. Dr. Phu Garcia's note is reviewed. Dr. Ziegler's consultation is reviewed. Emergency room chart is reviewed. The patient has negative chest x-ray. ASSESSMENT AND PLAN: This is a 47-year-old male, intellectually challenged, known to me from previous admissions with history of gastroesophageal reflux disease, anemia, anxiety, small bowel obstruction, and recurrent pneumonia, admitted with tachycardia, dyspnea, and hypotension with; 1. Severe sepsis with right leg cellulitis with right leg deep venous thrombosis. We will treat the patient with vancomycin 1 g IV q.12 and follow the patient's clinical response. We will check on the panculture, blood and urine culture, and the patient's anticoagulation as per ICU team. Ultrasound was positive for deep venous thrombosis. We will order a vancomycin trough level fifth dose actually with 9 a.m. dose on Thursday, and we will make further recommendations. We will follow his cellulitis clinically, and we will order an HIV test. Antwan Del Rosario MD
[2017-11-08] MEDS: Heparin25000 units/250ml 1/2NS 25,000 UNITS/250 ML BAG IV PRN (23:05)
--- NOTE | 2017-11-09 01:51 | PN ---
DATE: 11/08/2017 REFERRING PHYSICIAN: Dr. Rey. SUBJECTIVE: He is lying in the bed, feels much better than yesterday, more awake and alert. Follow simple commands. No cough. No sputum production. No chest pain. No nausea, no vomiting. No diarrhea. Still has right leg pain and swelling. PHYSICAL EXAMINATION: GENERAL: In no acute distress. VITAL SIGNS: Temperature is 98, heart rate is 93, respiratory rate is 16, blood pressure 88/54, pulse ox 97% on nasal cannula. HEENT: Moist mucous membranes. No ulcer or thrush noted. NECK: Supple. No JVD. LUNGS: Has fair airflow with rhonchi. HEART: S1 and S2. ABDOMEN: Soft, nontender. No organomegaly. EXTREMITIES: Has a diffuse erythema of the right leg and swelling. NEUROLOGIC: Awake, alert, and follows simple commands. MEDICATIONS: He is on IV based heparin protocol, Protonix 40 mg daily, Reglan 5 mg a.c. and h.s., IV fluid normal saline 100 mL per hour, vancomycin 1 g IV daily. LABORATORY DATA: Shows hemoglobin 9.4, hematocrit 28.4, WBC 5.8, platelet is 207. PTT 57. Sodium 124, potassium 3.5, chloride 105, bicarbonate 16, BUN 14, creatinine 0.6, glucose is 60, calcium 7.2, procalcitonin 0.74. Stool occult blood is positive. Microbiology, blood culture has been negative. IMPRESSION AND PLAN: Deep vein thrombosis of the right lower extremity with cellulitis, may have a component of aspiration pneumonia, recurrent bowel obstruction, intellectually disable. Agree with the present management. Continue anticoagulation. Gastric prophylaxis. Elevate right lower extremity. Antibiotics, supplemental oxygen. Follow up labs in the morning. Thank you and we will follow with you. Eber Ziegler MD
--- NOTE | 2017-11-09 03:17 | PN ---
DATE: SUBJECTIVE: The patient is seen and examined on the bedside in the unit. He looks comfortable, awake, alert and responds appropriately. The patient has no shortness of breath, no fever, no chills, no wheezing, no coughing. No nausea, vomiting, or diarrhea. No hematuria, no hematochezia, but having pain in his lower extremities and swelling. PHYSICAL EXAMINATION VITAL SIGNS: Temperature 98.4, pulse 99, respiratory rate 11, blood pressure 79/45, oxygen saturation 90% on room air. HEENT: Head: Normocephalic, atraumatic. Eyes: PERRLA. Extraocular muscles intact. Conjunctivae clear. Nose patent. Mucous membranes are moist. NECK: Supple. No carotid bruits, JVD, or thyromegaly. CHEST: Bilaterally symmetrical. HEART: S1, S2, positive. LUNGS: Poor air entry ABDOMEN: Soft. Decreased bowel sounds. EXTREMITIES: Right lower extremity swollen, erythematous, and warm. NEUROLOGICAL: The patient is awake, alert, and moving all 4 extremities. LABORATORY DATA: White blood cells 4.1, hemoglobin 8.5, hematocrit 25.5, platelets 179,000. Sodium 124, potassium 3.5, BUN 14, creatinine 0.6, and glucose 60. ASSESSMENT AND PLAN: Mr. Sean Dee is a 47-year-old male with extensive right lower extremity deep vein thrombosis and cellulitis of the right lower extremity, recent history of anemia, multiple abdominal surgeries with bowel obstruction in the past, hypotension, hyponatremia, anorexia, weight loss, patient is mentally retarded, history of bad constipation. We will continue monitoring the hemoglobin very closely, do stool guaiac, type and cross match, packed RBC. We will call Dr. Juan Easley for IVC filter. Continue metronidazole, clindamycin, patient on IV heparin. We will continue Protonix and Reglan. Seen by Dr. Del Rosario, infectious disease doctor. History of anxiety, history of recurrent aspiration pneumonia, tachycardia, dyspnea, and severe sepsis with right cellulitis. Added vancomycin by Dr. Del Rosario. Mallory cultures are done. Dr. Del Rosario also ordered HIV test. Lung scan done. Chest CT done. Discussion done with nursing staff. Continue heparin. Follow up H and H. Supplemental oxygen. Nebulizer treatment. We will follow up. Meme Rey MD
[2017-11-09 06:32] LABS: BASO # 0.02 K/mm3 (0.0-2.0); BASO % 0.4 % (0.0-3.0); EOS % 0.8 % (1.5-5.0); GRAN # 3.37 (1.4-6.5); GRAN % 67.1 % (50.0-68.0); LYMPH # 1.1 (1.2-3.4); LYMPH % 22.1 % (22.0-35.0); MEAN CORPUSCULAR HEMOGLOBIN 27.7 pg (25.0-35.0); MEAN CORPUSCULAR HGB CONC 32.6 g/dl (31.0-37.0); MEAN PLATELET VOLUME 9.5 fl (7.0-11.0); MONO # 0.5 (0.1-0.6); MONO % 9.6 % (1.0-6.0); RBC 2.67 10^6/uL (3.5-6.1); RED CELL DISTRIBUTION WIDTH 15.3 % (11.5-14.5)
[2017-11-09 07:02] LABS: HEMOGLOBIN 7.4 g/dL (14.0-18.0)
[2017-11-09 07:11] LABS: ALB/GLOB RATIO 0.7 (1.1-1.8); ALBUMIN 1.3 g/dL (3.0-4.8); ALT/SGPT 41 U/L (7-56); AST/SGOT 15 U/L (17-59); BLOOD UREA NITROGEN 9 mg/dL (7-21); CALCIUM 7.1 mg/dL (8.4-10.5); GFR AFRICAN-AMERICAN > 60; GFR NON-AFRICAN AMERICAN > 60
--- NOTE | 2017-11-09 08:22 | HP ---
CHIEF COMPLAINT: Weakness, neurological deficits. HISTORY OF PRESENT ILLNESS: Mr. Sean Dee is a 47-year-old, my private patient, with past medical history of intellectual disability, anemia, GERD, aspiration pneumonia, multiple abdominal surgeries, history of perforation of the stomach, history of chronic constipation, came to the Emergency Room with sister and distribution field technician with history of swelling of his right leg noticed yesterday. The patient reportedly has been progressively weaker for the past 2 weeks as per sister, but as per the distribution field technician he has been less active since last Thanks[place]. The patient reportedly is typically ambulatory and active, although for several weeks, he walks slower and has not been so active. They reported decreased appetite. The patient is not a good historian. No fever. No chills. No nausea, vomiting, or diarrhea. PAST MEDICAL HISTORY: As above. History of aspiration pneumonia, history of chronic constipation and intestinal obstruction multiple times, history of multiple abdominal surgeries, anemia, status post blood transfusions, multiple scarring on abdominal area from multiple abdominal surgeries, history of small bowel resection, ileus, history of colostomy and reversal colitis. FAMILY HISTORY: Father and mother, noncontributory. HABITS: Never smoked, no drug, no ethanol. ALLERGIES: NO KNOWN DRUG ALLERGIES. HOME MEDICATIONS: Vitamin D, iron, and B12. REVIEW OF SYSTEMS: The patient seen and examined on the bedside, looks little bit lethargic. No nausea, vomiting, or diarrhea. No hematuria or hematochezia. No fever. No chills. The patient is a poor historian. He is not able to give review of systems but looks like do not have fever. No headache. No dizziness. Feeling fatigued. No vision changes. No hearing changes. No shortness of breath. Had edema, calf pain, right leg swollen. No polyuria. PHYSICAL EXAMINATION: VITAL SIGNS: Temperature of 97.4, pulse of 94, respiratory rate 18, blood pressure 91/50, pulse oximetry 99%. HEENT: Normocephalic and atraumatic. Eyes; PERRLA. Extraocular muscles intact. Conjunctivae clear. Nose patent. Mucous membrane moist. NECK: Supple. No carotid bruits, JVD or thyromegaly. CHEST: Bilaterally symmetrical. HEART: S1 and S2 positive. LUNGS: Clear to auscultation. ABDOMEN: Soft. Bowel sounds are positive. Multiple scars of surgery. No tenderness. No distention. EXTREMITIES: Lower extremities have edema and tenderness. The patient with edema of the right lower extremity from foot to ankle and knee to thigh with erythema and clear drainage from the hoskins area. No pus, drainage, or fluctuance. NEUROLOGIC: The patient is awake and alert but is not oriented all the time. LABORATORY DATA: White blood cell is 6.0, hemoglobin 10.0, hematocrit 29.4, platelets 184. Sodium 130, potassium 4.2, BUN 19, creatinine 0.7, glucose 86. ASSESSMENT AND PLAN: Mr. Sean Dee is a 47-year-old male with anemia, hyponatremia, deep vein thrombosis, cellulitis of the leg. The patient's condition is serious, admitted to the ICU, seen by Dr. Phu Garcia. Lung scan is done, results are pending. CAT scan of the chest is canceled. Ultrasound results are pending. We do not have official results. Chest x-ray is reviewed by me. The patient is actually mentally challenged, has history of severe anemia and multiple times blood transfusions, gastroesophageal reflux disease, aspiration pneumonia, multiple abdominal surgeries, history of multiple times small bowel obstruction, and multiple surgeries done by Dr. Andres Henson. We admitted the patient in the unit, started clindamycin by Dr. Ziegler, Protonix for GI prophylaxis, metoclopramide given and started. We will put consult of the ID. We will monitor H and H. We will follow up. Meme Rey MD MTDD
--- NOTE | 2017-11-09 08:53 | US ---
PROCEDURE: Right lower extremity venous US HISTORY: Leg pain and swelling. Evaluate for DVT. PHYSICIAN(S): Juan Easley M.D. TECHNIQUE: Duplex sonography and color-flow Doppler with graded compression were used to evaluate the deep venous system of the right lower extremity. FINDINGS: There is extensive acute occlusive hypoechoic thrombus in the right common femoral vein, right femoral vein, proximal right profunda femoral vein, right popliteal vein, and visualized tibial veins. The superior extent of the thrombus into the right iliac venous system is not identified. IMPRESSION: 1. Extensive right iliofemoral DVT. Superior extent of the thrombus is not identified. Further evaluation with a CTA of the pulmonary arteries followed by a CT scan of the abdomen pelvis can be performed if clinically indicated.
--- NOTE | 2017-11-09 09:13 | CON ---
DATE: 11/07/2017 [employer] CONSULTATION REQUESTING PHYSICIAN: Meme Rey MD CHIEF COMPLAINT: The patient presented with swelling of the right lower extremity with pain, decreased appetite, and feeling overall weakness over the last several weeks. HISTORY OF PRESENT ILLNESS: Mr. Dee is a 47-year-old slightly retarded male with history of anemia, gastroesophageal reflux disease, aspiration pneumonia, multiple abdominal surgeries, bowel obstruction, and is taken care by a menagerie caretaker at home. He has been complaining of swelling of his right lower extremity with some pain and having difficulty with walking over the last several days and has been complaining of being weak over the last several weeks. The patient has no complaints of shortness of breath, cough, wheezing, or chest congestion. No chest pain. No fever, chills, nausea or vomiting. No diarrhea. PAST MEDICAL HISTORY: As above. ALLERGIES: HE HAS NO KNOWN ALLERGIES. CURRENT MEDICATIONS: His current medications can be evaluated as per the nurse's intake form. SOCIAL HISTORY: No history of smoking, EtOH abuse or drug abuse. FAMILY HISTORY: Noncontributory. REVIEW OF SYSTEMS: CONSTITUTIONAL: The patient has had fatigue for some time, but no fever or chills. HEENT: All negative. RESPIRATORY: All negative. CARDIOVASCULAR: He does have edema in the lower extremities, especially on the right. GASTROINTESTINAL: He does have appetite changes, states that he has not had appetite for some time, but no nausea or vomiting. : All negative. MUSCULOSKELETAL: Right lower extremity has swelling and pain. SKIN: Good integrity. NEUROLOGICALLY: All negative. ENDOCRINE: All negative. HEMATOLOGIC: All negative. IMMUNOLOGIC: All negative. PSYCHIATRIC: All negative. PHYSICAL EXAMINATION: VITAL SIGNS: Note that his temperature is 97.4, his pulse is 94, respirations 18, BP is 91/60, O2 saturation is 99% on room air. HEENT: Head is atraumatic, normocephalic. Eyes reactive to light. Ears, nose and throat seem to be within normal limits. NECK: Supple. No JVD. No thyroid enlargement. No lymph nodes. HEART: Has regular rate and rhythm. Normal S1 and S2. LUNGS: Reveal good breath sounds bilaterally. ABDOMEN: Soft. Decreased bowel sounds. GENITALIA AND RECTAL: Deferred. MUSCULOSKELETAL: No joint deformities. EXTREMITIES: Reveal swelling and tenderness to the touch with severe hyperemia of the right lower extremity. NEUROLOGICALLY: He seems to be grossly intact. Note that the patient does have some mild retardation and does answer inappropriately at times. LABORATORY DATA: As far as laboratories, his white count is 6.0, hemoglobin is 10.0, hematocrit 29.4 with platelets of 184,000. Sodium is 120, potassium 4.2, chloride 98, CO2 of 19 with a BUN of 19, creatinine of 0.7, and a glucose of 86. I had seen his chest x-ray, no active disease. IMPRESSION: As far as my impression, this patient has a right lower extremity large deep venous thrombosis, as well as right lower extremity cellulitis. He has some cachexia as well as has a history of decreased appetite and is noted to have hyponatremia. The patient has anemia as well as a history of gastroesophageal reflux disease and multiple abdominal surgeries with a history of bowel obstruction in the past as well. The patient is noted to have hypotension, but note that he has a history of low blood pressure and also carries a diagnosis of gastroesophageal reflux disease, as well as mild mental retardation. He has in the past had pneumonia as well as bowel obstructions. PLAN: As far as our plan, we will start normal saline and monitor his sodium closely. The patient is on antibiotics of Rocephin and is getting IV heparin. We will monitor his PTT and INR as well as PT. Note that in discussing with the ER physician, the patient is being sent for V/Q scan since he does have a low blood pressure and an extensive DVT. The patient will be evaluated for possible pulmonary embolism via CT angio. He will be admitted to the intensive care unit and follow closely and treat aggressively along with the other consultants and the primary care doctor. Phu Garcia MD
--- NOTE | 2017-11-09 10:55 | CP.PCM.PN ---
<Angelica Zendejas - Last Filed: 11/09/17 10:52> Subjective - Date & Time of Evaluation Date of Evaluation: 11/09/17 Time of Evaluation: 10:52 - Subjective Subjective: ICU Progress Note for Casandra Aden PGY2 Patient seen and examined at bedside. As per nursing staff, there were no acute overnight events. Patient states he feels well this morning and is resting comfortably in bed. He is only complaining on R leg pain. He denies chest pain, shortness of breath, fever/chills, nausea/vomiting/diarrhea, dysuria or hematuria, numbness or tingling. Objective - Vital Signs/Intake and Output Vital Signs (last 24 hours): Temp Pulse Resp BP Pulse Ox 98.4 F 82 20 97/35 L 96 11/08/17 00:00 11/09/17 07:10 11/09/17 07:10 11/09/17 07:00 11/09/17 07:10 Intake and Output: 11/09/17 11/09/17 06:59 18:59 Intake Total 1678 Output Total 200 Balance 1478 - Medications Medications: Current Medications Heparin Sodium/Sodium Chloride (Heparin 26007 Units/250ml 1/2 Normal Saline) 25 ,000 units in 250 mls @ 8.083 mls/hr IV .Q24H PRN; Protocol; 18 UNITS/KG/HR PRN Reason: ADJUST RATE PER PROTOCOL Last Admin: 11/08/17 23:05 Dose: 20 units/kg/hr, 8.981 mls/hr Vancomycin HCl (Vancomycin 1gm) 1 gm in 250 mls @ 167 mls/hr IVPB Q12H [facility] PRN Reason: Protocol Stop: 11/17/17 10:01 Last Admin: 11/08/17 22:43 Dose: 167 mls/hr Metoclopramide HCl (Reglan) 5 mg IVP ACHS [facility] Last Admin: 11/09/17 08:36 Dose: 5 mg Pantoprazole Sodium (Protonix Ec Tab) 40 mg PO 0600,1600 [facility] - Labs Labs: 11/09/17 05:20 11/09/17 05:20 PT 12.8 SECONDS (9.4-12.5) H 11/07/17 14:27 INR 1.12 (0.93-1.08) H 11/07/17 14:27 APTT 48.9 Seconds (25.1-36.5) H 11/09/17 05:20 - Constitutional Appears: No Acute Distress - Head Exam Head Exam: ATRAUMATIC, NORMAL INSPECTION, NORMOCEPHALIC - Eye Exam Eye Exam: Normal appearance, PERRL Pupil Exam: PERRL - ENT Exam ENT Exam: Mucous Membranes Moist - Neck Exam Neck Exam: Full ROM - Respiratory Exam Respiratory Exam: Clear to Ausculation Bilateral, NORMAL BREATHING PATTERN. absent: Rales, Rhonchi, Wheezes - Cardiovascular Exam Cardiovascular Exam: REGULAR RHYTHM, +S1, +S2. absent: Gallop, Rubs, Murmur - GI/Abdominal Exam GI & Abdominal Exam: Soft, Normal Bowel Sounds. absent: Rigid, Tenderness, Mass , Rebound - Extremities Exam Extremities Exam: Pedal Edema (on R LE), Tenderness (to R lower extremity) Additional comments: erythema up to knee on RLE - Neurological Exam Neurological Exam: Alert, Awake, CN II-XII Intact, Oriented x3 - Psychiatric Exam Psychiatric exam: Normal Affect, Normal Mood - Skin Skin Exam: Dry, Erythema (on R LE), Warm Assessment and Plan - Assessment and Plan (Free Text) Assessment: This is a 47yo male with PMH of anemia, SBO, GERD, anxiety and cognitive impairment admitted for RLE DVT (provoked) and RLE cellulitis. Patient is found to be anemic with stool occult positive for blood. There are no signs of overt bleeding as per nursing staff. Plan: Neuro: Patient A&O x 3 Maintain normothermia CV: Patient is HD stable Maintain MAP >65 V/Q scan showed no evidence of PE Continue Heparin drip Resp: Comfortable on room air Maintain SpO2>92% Aspiration precaution Pulm consulted-recs appreciated GI: Hx of anemia, SBO and multiple GI surg on Reg diet- d/c IV fluids Stool occult positive- but no overt sign of bleeding Reglan formerly [facility] GI consulted Heme: RLE DVT seen on U/S without PE Anemia- can be secondary to GI bleed v. dilution Hgb: 7.5 was 9.4 Will repeat H/H this afternoon Continue Hep drip IR consulted for possible IVC filter IR recommended CTA and CT of abd/pelvis with PO and IV contrast Nephro: Hyponatremia (mild and improving) Will dc NS for now since tolerating diet- repeat BMP this afternoon Will continue to monitor electrolytes and replace as needed Maintain euvolemia ID: RLE cellulitis afebrile, no leukocytosis Pt on Vancomycin as per ID ID consulted- recs appreciated Monitor Vanc trough Endo: Maintain euglycemia GI ppx: Protonix DVT ppx: SCDs Case seen, discussed and reviewed with attending. Casandra Zendejas PGY2 <Efe Mann - Last Filed: 11/09/17 12:49> Objective - Vital Signs/Intake and Output Vital Signs (last 24 hours): Temp Pulse Resp BP Pulse Ox 98.4 F 82 20 97/35 L 96 11/08/17 00:00 11/09/17 07:10 11/09/17 07:10 11/09/17 07:00 11/09/17 07:10 Intake and Output: 11/09/17 11/09/17 06:59 18:59 Intake Total 1678 Output Total 200 Balance 1478 - Medications Medications: Current Medications Heparin Sodium/Sodium Chloride (Heparin 15289 Units/250ml 1/2 Normal Saline) 25 ,000 units in 250 mls @ 8.083 mls/hr IV .Q24H PRN; Protocol; 18 UNITS/KG/HR PRN Reason: ADJUST RATE PER PROTOCOL Last Admin: 11/08/17 23:05 Dose: 20 units/kg/hr, 8.981 mls/hr Vancomycin HCl (Vancomycin 1gm) 1 gm in 250 mls @ 167 mls/hr IVPB Q12H [facility]AN PRN Reason: Protocol Stop: 11/17/17 10:01 Last Admin: 11/09/17 11:21 Dose: 167 mls/hr Metoclopramide HCl (Reglan) 5 mg IVP ACHS [facility] Last Admin: 11/09/17 08:36 Dose: 5 mg Pantoprazole Sodium (Protonix Ec Tab) 40 mg PO 0600,1600 [facility]AN - Labs Labs: 11/09/17 05:20 11/09/17 05:20 PT 12.8 SECONDS (9.4-12.5) H 11/07/17 14:27 INR 1.12 (0.93-1.08) H 11/07/17 14:27 APTT 106.7 Seconds (25.1-36.5) H* 11/09/17 11:45 Attending/Attestation - Attestation I have personally seen and examined this patient.: Yes I have fully participated in the care of the patient.: Yes I have reviewed all pertinent clinical information, including history, physical exam and plan: Yes Notes (Text): 11/09/17 12:46 The patient was seen and examined at the bedside. Patient care was discussed with resident Medical records, lab studies, and imaging were reviewed and management issues were discussed and formulated. Last 24H events reviewed. Agree with above treatment plans as outlined in 's note with addition of the following: -hemodynamic monitoring to maintain MAP>65; currently stable -o2 supplementation to maintain Spo2>90 Pao2>60; currently comfortable on NC -f\u Bun\Cr and U\o; monitor serial Na+ -continue Abx as per ID team and f\u cultures -NPO diet and aspiration precautions -GI team eval; f\u serial H\H -continue heparin drip and monitor PTT and for bleed -IR eval for IVC filter -DVT \ PUD prophylaxis CCM f\u time 28min
[2017-11-09] MEDS: Vancomycin 1gm in NS 250ml 1 GM/250 ML BAG IVPB SCH ×2 (11:21→21:10)
[2017-11-09] MEDS ORDERED: Barium Sulfate Susp 2.1% w/v, 2.0% w/w 450 mL Bottle PO ONE (11:24)
[2017-11-09 13:37] LABS: BLOOD UREA NITROGEN 7 mg/dL (7-21); CALCIUM 7.1 mg/dL (8.4-10.5); GFR AFRICAN-AMERICAN > 60; GFR NON-AFRICAN AMERICAN > 60
[2017-11-09] MEDS ORDERED: Iodixanol 320 MG/ML 100 ML BOTTLE IV ONE (13:49)
--- NOTE | 2017-11-09 14:46 | NM ---
COMPARISON: 11/07/2017 single-view chest 11/07/2017 lower extremity duplex venous sonography. Summary of findings on the comparison examination: Extensive right iliofemoral DVT. TECHNIQUE: 33.0 mCi technetium 99-m DTPA aerosol. 4.0 mCI technetium 99-m MAA administered intravenously. FINDINGS: VENTILATION COMPONENT: Heterogeneous ventilation bilaterally. Retention of radionuclide in the tracheobronchial tree and ingestion of radionuclide in the stomach, incidental findings PERFUSION COMPONENT: Heterogeneous distribution of radionuclide. No geographic, segmental, lobar abnormalities apparent on the present examination. IMPRESSION: Low probability ventilation perfusion scan for pulmonary embolism. Concordant results (preliminary interpretation) provided by [facility]. Procedure Completed: 22:58 Preliminary ([facility]) Report: Dictated and Authenticated: 23:44 Final Interpretation: 14:44 [email or web address]
--- NOTE | 2017-11-09 14:53 | CP.PCM.PN ---
<Cristina Alford - Last Filed: 11/09/17 14:56> Subjective - Date & Time of Evaluation Date of Evaluation: 11/09/17 Time of Evaluation: 11:15 - Subjective Subjective: Chief complaint: Weakness, Neuro deficits 47 yr male w/ hstory of intellectual disability, anemia, GERD, aspiration pneumonia, multiple abdominal surgeries, perforation of stomach, anxiety, recurrent pneumonia, & chronic constipation. His sister and statistical methods professor, Iman is at bedside in ICU. Pt is a poor historian due to his mental disability. Denies any fever, chills, chest pain, shortness of breath, abdominal pain, nausea, vomiting, diarrhea, constipation, or urinary problems. Objective - Vital Signs/Intake and Output Vital Signs (last 24 hours): Temp Pulse Resp BP Pulse Ox 98.4 F 82 20 97/35 L 96 11/08/17 00:00 11/09/17 07:10 11/09/17 07:10 11/09/17 07:00 11/09/17 07:10 Intake and Output: 11/09/17 11/09/17 06:59 18:59 Intake Total 1678 Output Total 200 Balance 1478 - Medications Medications: Current Medications Heparin Sodium/Sodium Chloride (Heparin 42092 Units/250ml 1/2 Normal Saline) 25 ,000 units in 250 mls @ 8.083 mls/hr IV .Q24H PRN; Protocol; 18 UNITS/KG/HR PRN Reason: ADJUST RATE PER PROTOCOL Last Admin: 11/08/17 23:05 Dose: 20 units/kg/hr, 8.981 mls/hr Vancomycin HCl (Vancomycin 1gm) 1 gm in 250 mls @ 167 mls/hr IVPB Q12H [facility] PRN Reason: Protocol Stop: 11/17/17 10:01 Last Admin: 11/09/17 11:21 Dose: 167 mls/hr Metoclopramide HCl (Reglan) 5 mg IVP ACHS [facility] Last Admin: 11/09/17 08:36 Dose: 5 mg Pantoprazole Sodium (Protonix Ec Tab) 40 mg PO 0600,1600 [facility] - Labs Labs: 11/09/17 12:50 11/09/17 12:50 PT 12.8 SECONDS (9.4-12.5) H 11/07/17 14:27 INR 1.12 (0.93-1.08) H 11/07/17 14:27 APTT 106.7 Seconds (25.1-36.5) H* 11/09/17 11:45 - Constitutional Appears: Chronically Ill - Head Exam Head Exam: ATRAUMATIC, NORMAL INSPECTION, NORMOCEPHALIC - Eye Exam Eye Exam: EOMI, Normal appearance, PERRL Pupil Exam: NORMAL ACCOMODATION, PERRL - ENT Exam ENT Exam: Mucous Membranes Moist, Normal Exam - Neck Exam Neck Exam: Full ROM, Normal Inspection. absent: Lymphadenopathy - Respiratory Exam Respiratory Exam: Decreased Breath Sounds, NORMAL BREATHING PATTERN - Cardiovascular Exam Cardiovascular Exam: REGULAR RHYTHM, +S1, +S2. absent: Murmur - GI/Abdominal Exam GI & Abdominal Exam: Soft - Extremities Exam Additional comments: R lower extremity, erythema, edema +2, tenderness. - Neurological Exam Neurological Exam: Alert, Awake - Psychiatric Exam Psychiatric exam: Flat Affect, Normal Mood - Skin Skin Exam: Dry, Pallor, Warm Assessment and Plan (1) Dehydration Status: Acute (2) Mentally disabled Status: Chronic (3) Cellulitis Status: Acute (4) DVT (deep venous thrombosis) Status: Acute (5) Hyponatremia Status: Acute (6) GI bleed Status: Acute (7) Severe anemia Status: Acute - Assessment and Plan (Free Text) Plan: IV heparin. IV vanco. IV protonix. Possible IVC filter placement. Consults: Pulmonary - Dr. Zieglre ID - Dr. Del Rosario IR - Dr. Chloe Easley GI - Dr. Davies Reviewed: CXR = WNL R lower ext US = R extensive iliofemoral DVT ECG = NSR CT chest = VQ scan = <Meme Rey - Last Filed: 11/09/17 21:23> Objective - Vital Signs/Intake and Output Vital Signs (last 24 hours): Temp Pulse Resp BP Pulse Ox 98.4 F 82 20 97/35 L 96 11/08/17 00:00 11/09/17 18:00 11/09/17 07:10 11/09/17 07:00 11/09/17 07:10 Intake and Output: 11/09/17 11/10/17 18:59 06:59 Intake Total 600 Output Total 1000 Balance -400 - Medications Medications: Current Medications Heparin Sodium/Sodium Chloride (Heparin 59438 Units/250ml 1/2 Normal Saline) 25 ,000 units in 250 mls @ 8.083 mls/hr IV .Q24H PRN; Protocol; 18 UNITS/KG/HR PRN Reason: ADJUST RATE PER PROTOCOL Last Admin: 11/08/17 23:05 Dose: 20 units/kg/hr, 8.981 mls/hr Vancomycin HCl (Vancomycin 1gm) 1 gm in 250 mls @ 167 mls/hr IVPB Q12H [facility] PRN Reason: Protocol Stop: 11/17/17 10:01 Last Admin: 11/09/17 21:10 Dose: 167 mls/hr Metoclopramide HCl (Reglan) 5 mg IVP ACHS [facility] Last Admin: 11/09/17 21:13 Dose: 5 mg Pantoprazole Sodium (Protonix Inj) 40 mg IVP Q12 [facility] Last Admin: 11/09/17 21:11 Dose: 40 mg - Labs Labs: 11/09/17 12:50 11/09/17 12:50 PT 12.8 SECONDS (9.4-12.5) H 11/07/17 14:27 INR 1.12 (0.93-1.08) H 11/07/17 14:27 APTT 50.8 Seconds (25.1-36.5) H 11/09/17 20:45 Assessment and Plan - Assessment and Plan (Free Text) Plan: 47 yr male w/ hstory of intellectual disability, anemia, GERD, aspiration pneumonia, multiple abdominal surgeries, perforation of stomach, anxiety, recurrent pneumonia, & chronic constipation. His sister and statistical methods professor, Iman is at bedside in ICU. Pt is a poor historian due to his mental disability. Denies any fever, chills, chest pain, shortness of breath, abdominal pain, nausea, vomiting, diarrhea, constipation, or urinary problems. still in the unit , as per radiologist pt had sbo . dr karl xiao called , he know this pt very well , gi is involved ,will f/u
--- NOTE | 2017-11-09 15:44 | CT ---
PROCEDURE: CT Angiography Chest, Abdomen and Pelvis with and without intravenous contrast HISTORY: DVT r/o clots COMPARISON: None. TECHNIQUE: Contiguous axial images of the chest, abdomen and pelvis were obtained in the phase of aortic enhancement. A noncontrast enhanced CT of the chest was also obtained to evaluate for possible intramural thrombus. Coronal and sagittal reformats were generated. IV dose administered: 100 cc of Visipaque Radiation dose: Total exam DLP = 456 mGy-cm. This CT exam was performed using one or more of the following dose reduction techniques: Automated exposure control, adjustment of the mA and/or kV according to patient size, and/or use of iterative reconstruction technique. FINDINGS: CT ANGIOGRAPHY OF THE CHEST WITH & WITHOUT CONTRAST: AORTA (CHEST AND ABDOMEN): The thoracic and abdominal aorta are unremarkable, without aneurysm, dissection or rupture. No intramural thrombus identified in the thoracic aorta on the non-contrast ct of the chest. The celiac axis, superior mesenteric artery, inferior mesenteric artery and the renal arteries are widely patent. The pelvic arteries are unremarkable. Very small emboli are seen in the lower lobe arteries bilaterally. These are visualized on image 108 series 3 and image 102. The IVC and iliac veins were not opacified with contrast. Contrast is in the arterial phase. There is no obvious swelling or inflammation around the veins. LUNGS: Clear. No nodule, mass or consolidation. MEDIASTINUM: Unremarkable. Normal caliber aorta and pulmonary arterial trunk. No aortic dissection. Normal size heart. LYMPH NODES: Unremarkable. PLEURA: Small bilateral pleural effusions BONES: Unremarkable. OTHER FINDINGS: None. CT ANGIOGRAPHY OF THE ABDOMEN AND PELVIS WITH CONTRAST: LIVER: Unremarkable. No gross lesion or ductal dilatation. GALLBLADDER AND BILE DUCTS: Unremarkable. PANCREAS: Unremarkable. No gross lesion or ductal dilatation. SPLEEN: Unremarkable. ADRENALS: Unremarkable. No mass. KIDNEYS AND URETERS: Unremarkable. No hydronephrosis. No solid mass. VASCULATURE: Unremarkable. No aortic aneurysm. STOMACH AND BOWEL: The colon is diffusely dilated. The transition point is seen in the rectosigmoid were there is a suture line. Below this level of the rectum shows severe mural thickening and edema. APPENDIX: Normal appendix. PERITONEUM: Unremarkable. No free fluid. No free air. LYMPH NODES: Unremarkable. No enlarged lymph nodes. BLADDER: Unremarkable. REPRODUCTIVE: Unremarkable. BONES: No acute fracture. OTHER FINDINGS: None. IMPRESSION: Distal colonic obstruction with severe dilatation of the proximal colon. The transition point is seen in the rectosigmoid. Very small bilateral pulmonary emboli.
[2017-11-09] MEDS ORDERED: Pantoprazole 40 mg EC Tab PO SCH (16:00)
--- NOTE | 2017-11-09 17:06 | CP.PCM.PN ---
Subjective - Date & Time of Evaluation Date of Evaluation: 11/09/17 Time of Evaluation: 10:30 - Subjective Subjective: Comfortable, not in distress, afebrile. Objective - Vital Signs/Intake and Output Vital Signs (last 24 hours): Temp Pulse Resp BP Pulse Ox 98.4 F 90 35 H 81/44 L 99 11/08/17 00:00 11/09/17 00:10 11/09/17 00:01 11/09/17 00:01 11/09/17 00:10 Intake and Output: 11/08/17 11/09/17 18:59 06:59 Intake Total 2208 120 Balance 2208 120 - Medications Medications: Current Medications Heparin Sodium/Sodium Chloride (Heparin 28415 Units/250ml 1/2 Normal Saline) 25 ,000 units in 250 mls @ 8.083 mls/hr IV .Q24H PRN; Protocol; 18 UNITS/KG/HR PRN Reason: ADJUST RATE PER PROTOCOL Last Admin: 11/08/17 23:05 Dose: 20 units/kg/hr, 8.981 mls/hr Sodium Chloride (Sodium Chloride 0.9%) 1,000 mls @ 100 mls/hr IV .Q10H [facility] Last Admin: 11/08/17 23:08 Dose: 100 mls/hr Vancomycin HCl (Vancomycin 1gm) 1 gm in 250 mls @ 167 mls/hr IVPB Q12H [facility] PRN Reason: Protocol Stop: 11/17/17 10:01 Last Admin: 11/08/17 22:43 Dose: 167 mls/hr Metoclopramide HCl (Reglan) 5 mg IVP ACHS [facility] Last Admin: 11/08/17 22:43 Dose: 5 mg Pantoprazole Sodium (Protonix Ec Tab) 40 mg PO DAILY [facility] Last Admin: 11/08/17 10:03 Dose: 40 mg - Labs Labs: 11/08/17 13:10 11/08/17 05:00 PT 12.8 SECONDS (9.4-12.5) H 11/07/17 14:27 INR 1.12 (0.93-1.08) H 11/07/17 14:27 APTT 48.9 Seconds (25.1-36.5) H 11/09/17 05:20 - Constitutional Appears: Chronically Ill - Head Exam Head Exam: NORMAL INSPECTION - Respiratory Exam Respiratory Exam: Decreased Breath Sounds - Cardiovascular Exam Cardiovascular Exam: +S1, +S2 - GI/Abdominal Exam GI & Abdominal Exam: Soft. absent: Tenderness Assessment and Plan - Assessment and Plan (Free Text) Plan: Assessment Severe sepsis due to right leg cellulitis with associated DVT distal colonic obstruction GERD chronic anemia anxiety history of SBO history of recurrent pneumonia Plan continue Vancomycin day 2; blood cx are negative so far will continue to monitor clinically follow up further work up for the colonic obstruction
--- NOTE | 2017-11-09 18:04 | CP.PCM.CON ---
<Keena Prado - Last Filed: 11/09/17 18:10> History of Present Illness - History of Present Illness History of Present Illness: Surgery Consult: Dr. Henson Pt is a 47M with extensive past surgical hx for gastric ulcer perforations who is well known to us from previous admissions. Pt was admitted to [facility] [place] due to RLE DVT as seen on US. Pt was brought in by film cutter & sister secondary to swelling and erythema in the RLE. He was started on a Hep drip and further eval to r/o PE was also done. Pt had a CT chest,abdomen,pelvis which showed very small b/l pulmonary emboli as well as dilated small bowel. Surgery called to evaluate and r/o SBO. Currently, pt is resting comfortably in his bed. He states he has no abdominal pain and most of the pain is in his legs penny RLE. Pt states he would like to have his dinner and denies any N/V, F/C. As per nursing staff, pt is having loose yellow BMs. Denies chest pain or SOB. PMHx: GERD, perforated ulcers, SBOs, anemia, mentally disabled PSHx: multiple abdominal surgeries for ulcer perforation & SBO' SocialHx: lives with family, no smoking/EtOH All: NKDA Review of Systems - Review of Systems All systems: reviewed and no additional remarkable complaints except (as per HPI ) Past Patient History - Infectious Disease Hx of Infectious Diseases: None - Tetanus Immunizations Tetanus Immunization: Unknown - Past Social History Smoking Status: Never Smoked - CARDIAC Hx Pacemaker: No - PULMONARY Hx Respiratory Disorders: Yes Other/Comment: aspiration pneumonia - NEUROLOGICAL Hx Paralysis: No - HEENT Hx HEENT Problems: No - RENAL Hx Chronic Kidney Disease: No - ENDOCRINE/METABOLIC Hx Endocrine Disorders: No - HEMATOLOGICAL/ONCOLOGICAL Hx Blood Transfusions: Yes Hx Blood Transfusion Reaction: (NOT KNOWN) - INTEGUMENTARY Hx Dermatological Problems: Yes Other/Comment: MULTIPLE SCARRING TO ABDOMINAL AREA FROM MULTIPLE ABDOMINAL SURGERIES - MUSCULOSKELETAL/RHEUMATOLOGICAL Hx Musculoskeletal Disorders: No - GASTROINTESTINAL Hx Gastrointestinal Disorders: Yes (MULTIPLE ABDOMINAL SX,SBO,ILLEUS,.H/O COLOSTOMY-REVERSED) Hx Colitis: Yes - GENITOURINARY/GYNECOLOGICAL Hx Genitourinary Disorders: No Hx Reproductive Disorders: No - PSYCHIATRIC Hx Emotional Abuse: No Hx Physical Abuse: No Hx Substance Use: No - SURGICAL HISTORY Other/Comment: multi abdominal surgery - ANESTHESIA Hx Anesthesia Reactions: No Hx Malignant Hyperthermia: No Meds Allergies/Adverse Reactions: Allergies Allergy/AdvReac Type Severity Reaction Status Date / Time No Known Allergies Allergy Verified 01/16/17 22:20 - Medications Medications: Current Medications Heparin Sodium/Sodium Chloride (Heparin 53175 Units/250ml 1/2 Normal Saline) 25 ,000 units in 250 mls @ 8.083 mls/hr IV .Q24H PRN; Protocol; 18 UNITS/KG/HR PRN Reason: ADJUST RATE PER PROTOCOL Last Admin: 11/08/17 23:05 Dose: 20 units/kg/hr, 8.981 mls/hr Vancomycin HCl (Vancomycin 1gm) 1 gm in 250 mls @ 167 mls/hr IVPB Q12H ETHAN PRN Reason: Protocol Stop: 11/17/17 10:01 Last Admin: 11/09/17 11:21 Dose: 167 mls/hr Metoclopramide HCl (Reglan) 5 mg IVP ACHS ETHAN Last Admin: 11/09/17 15:54 Dose: 5 mg Pantoprazole Sodium (Protonix Inj) 40 mg IVP Q12 ETHAN Physical Exam - Constitutional Appears: Well, No Acute Distress - Head Exam Head Exam: ATRAUMATIC - Eye Exam Eye Exam: Normal appearance - ENT Exam ENT Exam: Mucous Membranes Moist - Respiratory Exam Respiratory Exam: NORMAL BREATHING PATTERN - Cardiovascular Exam Cardiovascular Exam: RRR - GI/Abdominal Exam GI & Abdominal Exam: Soft. absent: Distended, Guarding, Rebound, Tenderness - Rectal Exam Rectal Exam: Deferred - Extremities Exam Extremities exam: Positive for: tenderness (RLE with erythema and edema noted ) , pedal pulses present - Neurological Exam Neurological exam: Alert - Skin Skin Exam: Dry, Warm Results - Vital Signs Recent Vital Signs: Last Vital Signs Temp 98.4 F 11/08/17 00:00 Pulse 82 11/09/17 07:10 Resp 20 11/09/17 07:10 BP 97/35 L 11/09/17 07:00 Pulse Ox 96 11/09/17 07:10 - Labs Result Diagrams: 11/09/17 12:50 11/09/17 12:50 Labs: Laboratory Results - last 24 hr 11/08/17 11/09/17 11/09/17 12:33 05:20 05:20 WBC 5.0 RBC 2.67 L Hgb 7.4 L D Hct 22.7 L MCV 85.0 MCH 27.7 MCHC 32.6 RDW 15.3 H Plt Count 182 MPV 9.5 Gran % 67.1 Lymph % (Auto) 22.1 Zavala % (Auto) 9.6 H Eos % (Auto) 0.8 L Baso % (Auto) 0.4 Gran # 3.37 Lymph # 1.1 L Zavala # 0.5 Eos # 0.0 Baso # 0.02 APTT Sodium 127 L Potassium 4.1 Chloride 111 H Carbon Dioxide 17 L Anion Gap 3 L BUN 9 Creatinine 0.6 L Est GFR ( Amer) > 60 Est GFR (Non-Af Amer) > 60 Random Glucose 87 Calcium 7.1 L Total Bilirubin < 0.1 L AST 15 L D ALT 41 Alkaline Phosphatase 58 Total Protein 3.2 L Albumin 1.3 L Globulin 2.0 Albumin/Globulin Ratio 0.7 L HIV 1&2 Ag/Ab, 4th Gen Nonreactive 11/09/17 11/09/17 11/09/17 05:20 11:45 12:50 WBC RBC Hgb 8.3 L Hct MCV MCH MCHC RDW Plt Count MPV Gran % Lymph % (Auto) Zavala % (Auto) Eos % (Auto) Baso % (Auto) Gran # Lymph # Zavala # Eos # Baso # APTT 48.9 H 106.7 H* Sodium Potassium Chloride Carbon Dioxide Anion Gap BUN Creatinine Est GFR ( Amer) Est GFR (Non-Af Amer) Random Glucose Calcium Total Bilirubin AST ALT Alkaline Phosphatase Total Protein Albumin Globulin Albumin/Globulin Ratio HIV 1&2 Ag/Ab, 4th Gen 11/09/17 11/09/17 12:50 15:10 WBC RBC Hgb Hct MCV MCH MCHC RDW Plt Count MPV Gran % Lymph % (Auto) Zavala % (Auto) Eos % (Auto) Baso % (Auto) Gran # Lymph # Zavala # Eos # Baso # APTT 49.8 H Sodium 127 L Potassium 3.9 Chloride 108 H Carbon Dioxide 17 L Anion Gap 6 L BUN 7 Creatinine 0.6 L Est GFR ( Amer) > 60 Est GFR (Non-Af Amer) > 60 Random Glucose 89 Calcium 7.1 L Total Bilirubin AST ALT Alkaline Phosphatase Total Protein Albumin Globulin Albumin/Globulin Ratio HIV 1&2 Ag/Ab, 4th Gen - Imaging and Cardiology CT scan - abdomen Status: Image reviewed by me, Report reviewed by me Assessment & Plan - Assessment and Plan (Free Text) Assessment: 47M with RLE DVT and small b/l PEs, being evaluated by surgery to r/o SBO Plan: - pt not clinically obstructed at this time, however a partial obstruction is possible - will put on clears for now until evaluated by GI - does not need an NGT at this time; however if he starts to vomit will rec decompression at that time - monitor H/H - d/w Dr. Sixto Prado, PGY-3 Surgery <Andres Henson - Last Filed: 11/10/17 07:25> Meds - Medications Medications: Current Medications Heparin Sodium/Sodium Chloride (Heparin 48594 Units/250ml 1/2 Normal Saline) 25 ,000 units in 250 mls @ 8.083 mls/hr IV .Q24H PRN; Protocol; 18 UNITS/KG/HR PRN Reason: ADJUST RATE PER PROTOCOL Last Admin: 11/08/17 23:05 Dose: 20 units/kg/hr, 8.981 mls/hr Vancomycin HCl (Vancomycin 1gm) 1 gm in 250 mls @ 167 mls/hr IVPB Q12H ETHAN PRN Reason: Protocol Stop: 11/17/17 10:01 Last Admin: 11/09/17 21:10 Dose: 167 mls/hr Metoclopramide HCl (Reglan) 5 mg IVP ACHS ETHAN Last Admin: 11/09/17 21:13 Dose: 5 mg Pantoprazole Sodium (Protonix Inj) 40 mg IVP Q12 ETHAN Last Admin: 11/09/17 21:11 Dose: 40 mg Results - Vital Signs Recent Vital Signs: Last Vital Signs Temp 98.4 F 11/08/17 00:00 Pulse 82 11/09/17 18:00 Resp 20 11/09/17 07:10 BP 97/35 L 11/09/17 07:00 Pulse Ox 96 11/09/17 07:10 - Labs Result Diagrams: 11/09/17 12:50 11/09/17 12:50 Labs: Laboratory Results - last 24 hr 11/08/17 11/09/17 11/09/17 12:33 11:45 12:50 Hgb 8.3 L APTT 106.7 H* Sodium Potassium Chloride Carbon Dioxide Anion Gap BUN Creatinine Est GFR ( Amer) Est GFR (Non-Af Amer) Random Glucose Calcium HIV 1&2 Ag/Ab, 4th Gen Nonreactive 11/09/17 11/09/17 11/09/17 12:50 15:10 20:45 Hgb APTT 49.8 H 50.8 H Sodium 127 L Potassium 3.9 Chloride 108 H Carbon Dioxide 17 L Anion Gap 6 L BUN 7 Creatinine 0.6 L Est GFR ( Amer) > 60 Est GFR (Non-Af Amer) > 60 Random Glucose 89 Calcium 7.1 L HIV 1&2 Ag/Ab, 4th Gen Assessment & Plan - Assessment and Plan (Free Text) Assessment: 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
--- NOTE | 2017-11-10 03:13 | PN ---
DATE: 11/09/2017 PULMONARY PROGRESS NOTE REFERRING PHYSICIAN: Dr. Rey. SUBJECTIVE: Patient is lying in the bed, right lower extremity elevated. No headache, no rhinitis. No nausea, no vomiting. No diarrhea. Swelling of the right lower extremity is slowly improving, also erythema is improving. OBJECTIVE: GENERAL: In no acute distress. VITAL SIGNS: Temperature is 98, heart rate is 82, respiratory rate is 20, pulse ox 96% on room air, blood pressure 97/35. HEENT: Moist mucous membranes. No ulcer or thrush noted. NECK: Supple. No JVD. LUNGS: Has fair airflow with few rhonchi. HEART: S1 and S2. ABDOMEN: Soft and nontender. No organomegaly. EXTREMITIES: Right leg swelling, erythema, which is improved. Tender to touch. NEUROLOGICAL: Awake and alert, follows simple commands. MEDICATIONS: He is on heparin weight-based protocol, Protonix 40 mg twice a day, Reglan 5 mg IV a.c. and at bedtime, vancomycin 1 g IV q. 12 hours. LABORATORY DATA: Shows hemoglobin 7.4, hematocrit is 22.7, WBC 5.0, platelet is 182. PTT is 51. Sodium 127, potassium 3.9, chloride 108, bicarbonate 17, BUN 7, creatinine 0.6, calcium is 7.1. Albumin is 1.3. Stool occult blood is positive. HIV is non reactive. Blood cultures, stool cultures is unremarkable. Had a CT scan abdomen and pelvis done, which shows a distal colonic obstruction with severe dilatation of the proximal colon. Transition point is seen in the rectosigmoid, very small bilateral pulmonary emboli. IMPRESSION AND PLAN: Deep venous thrombosis of the right leg, probably has a component of cellulitis, also found to have pulmonary embolism, bowel obstruction, but does have a bowel movement, continue IV heparin. Keep head at 45 degrees. Continue antibiotics. Gastric prophylaxis. Follow up complete blood count, comprehensive metabolic panel, in the morning. Thank you and we will follow with you. Eber Ziegler MD
[2017-11-10 07:00] LABS: BASO # 0.02 K/mm3 (0.0-2.0); BASO % 0.3 % (0.0-3.0); EOS # 0.1 (0.0-0.7); EOS % 1.2 % (1.5-5.0); GRAN # 4.31 (1.4-6.5); GRAN % 75.5 % (50.0-68.0); HEMOGLOBIN 8.2 g/dL (14.0-18.0); LYMPH # 0.8 (1.2-3.4); LYMPH % 13.6 % (22.0-35.0); MEAN CELL VOLUME 85.3 fl (80.0-105.0); MEAN CORPUSCULAR HEMOGLOBIN 27.4 pg (25.0-35.0); MEAN CORPUSCULAR HGB CONC 32.2 g/dl (31.0-37.0); MEAN PLATELET VOLUME 9.7 fl (7.0-11.0); MONO # 0.5 (0.1-0.6); MONO % 9.4 % (1.0-6.0); RBC 2.99 10^6/uL (3.5-6.1); RED CELL DISTRIBUTION WIDTH 15.4 % (11.5-14.5); WHITE BLOOD COUNT 5.7 10^3/ul (4.5-11.0)
[2017-11-10 07:27] LABS: ALB/GLOB RATIO 0.6 (1.1-1.8); ALBUMIN 1.5 g/dL (3.0-4.8); ALT/SGPT 43 U/L (7-56); AST/SGOT 24 U/L (17-59); BLOOD UREA NITROGEN 3 mg/dL (7-21); CALCIUM 7.7 mg/dL (8.4-10.5); GFR AFRICAN-AMERICAN > 60; GFR NON-AFRICAN AMERICAN > 60
--- NOTE | 2017-11-10 08:07 | CP.PCM.PN ---
Subjective - Date & Time of Evaluation Date of Evaluation: 11/10/17 Time of Evaluation: 08:04 - Subjective Subjective: GENERAL SURGERY CONSULT PROGRESS NOTE FOR DR. RICHARD. Patient has been seen and examined. No overnight events reported. Denies any abdominal pain, nausea, vomiting. Bowel movement reported overnight. He tolerated his clear liquid diet. Objective - Vital Signs/Intake and Output Vital Signs (last 24 hours): Temp Pulse Resp BP Pulse Ox 98.4 F 90 14 82/45 L 100 11/08/17 00:00 11/10/17 07:40 11/10/17 07:40 11/10/17 07:00 11/10/17 07:40 Intake and Output: 11/10/17 11/10/17 06:59 18:59 Intake Total 2158 Output Total 1000 Balance 1158 - Medications Medications: Current Medications Heparin Sodium/Sodium Chloride (Heparin 02768 Units/250ml 1/2 Normal Saline) 25 ,000 units in 250 mls @ 8.083 mls/hr IV .Q24H PRN; Protocol; 18 UNITS/KG/HR PRN Reason: ADJUST RATE PER PROTOCOL Last Admin: 11/08/17 23:05 Dose: 20 units/kg/hr, 8.981 mls/hr Vancomycin HCl (Vancomycin 1gm) 1 gm in 250 mls @ 167 mls/hr IVPB Q12H ETHAN PRN Reason: Protocol Stop: 11/17/17 10:01 Last Admin: 11/09/17 21:10 Dose: 167 mls/hr Metoclopramide HCl (Reglan) 5 mg IVP ACHS ETHAN Last Admin: 11/09/17 21:13 Dose: 5 mg Pantoprazole Sodium (Protonix Inj) 40 mg IVP Q12 ETHAN Last Admin: 11/09/17 21:11 Dose: 40 mg - Labs Labs: 11/10/17 05:50 11/10/17 05:50 PT 12.8 SECONDS (9.4-12.5) H 11/07/17 14:27 INR 1.12 (0.93-1.08) H 11/07/17 14:27 APTT 31.8 Seconds (25.1-36.5) 11/10/17 05:50 - Additional Findings Additional findings: - Constitutional Appears: Well, No Acute Distress - Head Exam Head Exam: ATRAUMATIC - Eye Exam Eye Exam: Normal appearance - ENT Exam ENT Exam: Mucous Membranes Moist - Respiratory Exam Respiratory Exam: NORMAL BREATHING PATTERN - Cardiovascular Exam Cardiovascular Exam: RRR - GI/Abdominal Exam GI & Abdominal Exam: Soft. absent: Distended, Guarding, Rebound, Tenderness - Rectal Exam Rectal Exam: Deferred - Extremities Exam Extremities exam: Positive for: tenderness (RLE with erythema and edema noted ) , pedal pulses present - Neurological Exam Neurological exam: Alert - Skin Skin Exam: Dry, Warm Assessment and Plan - Assessment and Plan (Free Text) Assessment: 47M with RLE DVT and small b/l PEs, being evaluated by surgery to r/o SBO CT Chest/Abd/Pelvis (11/09/17): Distal colonic obstruction with severe dilatation of the proximal colon. The transition point is seen in the rectosigmoid. Plan: - possible partial obstruction - Advance diet as tolerated - F/U w/ GI recs. - does not need an NGT at this time; however if he starts to vomit will rec decompression at that time - monitor H/H - Recommend Flexible sigmoidoscopy when stable. - No surgical intervention indicated at this time. Cont. Medical management. - D/W Dr. Sixto Carlson, PGY-1
[2017-11-10] MEDS: Heparin25000 units/250ml 1/2NS 25,000 UNITS/250 ML BAG IV PRN (08:35)
--- NOTE | 2017-11-10 10:55 | CON ---
DATE:11/09/2017 REASON FOR CONSULTATION: Partial intestinal obstruction, history of anastamotic stricture, for evaluation. HISTORY OF PRESENT ILLNESS: This is a 47-year-old patient with a past medical history of intellectual disability, history of aspiration pneumonia, recurrent intestinal obstruction, had subtotal colectomy, had end-to-side ileocolonic anastomosis at sigmoid colon level, had a stricture at the anastomosis - status post dilations in the past, admitted with right leg cellulitis, and Doppler showed DVT and CT of the chest showed bilateral small pulmonary emboli. The CT scan of the abdomen was also suggestive of partial intestinal obstruction. GI consult was requested to evaluate this. No vomiting. The patient denies abdominal pain. Abdomen is softly distended. OTHER PAST MEDICAL HISTORY: Significant as above. The patient has a history of gastric outlet obstruction, ulcerations, had a partial gastrectomy - last endoscopy was in 01/2016, found to have gastroenterostomy and a small gastric pouch. The patient had a subtotal colectomy with end-to-side ileocolonic anastomosis at sigmoid colon level. The patient had multiple anastomotic dilatations, which showed a significant improvement - the last dilation was done in 03/2017. FAMILY HISTORY: Noncontributory. ALLERGIES: NO KNOWN DRUG ALLERGIES. SOCIAL HISTORY: Denies smoking or alcohol. REVIEW OF SYSTEMS: Positive as above. Other systems reviewed. PHYSICAL EXAMINATION: GENERAL: The patient is lying on the bed, not in acute distress. VITAL SIGNS: Pulse is 82, blood pressure 95/54, respirations 13, and O2 saturation 97%. HEENT: Atraumatic, anicteric. NECK: Supple. HEART: S1 and S2 heard. LUNGS: Bilateral air entry present. ABDOMEN: Multiple surgical scars present. Softly distended. EXTREMITIES: Right leg erythema present, swelling. NEUROLOGIC: Alert. Moves all extremities. DATA: Hemoglobin is 7.4 - it was 9.4 before, hematocrit 22.2, WBC 5.0, and platelets 182,000. Chemistry shows sodium 127, chloride 108, calcium 7.1, BUN 6, and creatinine 0.6. CT scan of the abdomen and chest done was reviewed. Had distal colonic obstruction with severe dilation of the proximal colon. Transition point described was rectosigmoid, had bilateral pulmonary emboli. IMPRESSION: This is a 47-year-old patient who is mentally challenged, well known to our service with multiple admissions in the past, had partial gastrectomy and gastroenterostomy for gastric outlet obstruction. The patient also had subtotal colectomy with ileocolonic anastomosis at the sigmoid colon level, history of end-to-side anastomosis with stricture at the ileocolonic anastomosis. Had multiple dilations in the past, last dilation was in 03/2017 with good improvement. The patient's CAT scan was reviewed. It appears to have obstruction at the same level - what was described above and , it appears to be a partial obstruction. 1. History of anemia with a significant drop in blood count, on anticoagulation, needs close followup. 2. Sepsis with cellulitis. 3. Pulmonary embolism. 4. Mentally challenged. 5. The patient has extensive deep venous thrombosis. PLAN: We would recommend: 1. Close followup of the hemoglobin and hematocrit. 2. IV Protonix. 3. The colonic obstruction appears to be at the anastomosis level, which is known have stricture before. May need to be having dilation; however, the concern is a drop in hemoglobin. The patient needs to be on anticoagulation. With the followup of the hemoglobin and hematocrit, may need a repeat dilation. In view of the extensive DVT and PE, we will discuss with the tower director and primary physician regarding the timing of the flexible sigmoidoscopy. Other comorbidities include the patient also has hyponatremia. Correction of the electrolytes. Continue the antibiotics for cellulitis. Thank you very much for allowing us to participate in the care of your patient. Cristiane Davies MD K[facility]
[2017-11-10] MEDS: Vancomycin 1gm in NS 250ml 1 GM/250 ML BAG IVPB SCH ×2 (11:07→21:33)
--- NOTE | 2017-11-10 11:25 | CP.PCM.PN ---
<Samantha Waldron - Last Filed: 11/10/17 11:24> Subjective - Date & Time of Evaluation Date of Evaluation: 11/10/17 Time of Evaluation: 10:00 - Subjective Subjective: S&E at bedside, chart reviewed. Had a 3 episodes of loose BM last night, no melena or BRBPR. Patient is tolerating clear liquid. Patient is awake and alert , denies SOB, CP, N.V or abdominal pain. Reports passing gas. On anitcoagulants for DVT/PE. Spoke to nurse, may be a plan for IVC filter with IR. Objective - Vital Signs/Intake and Output Vital Signs (last 24 hours): Temp Pulse Resp BP Pulse Ox 98.4 F 90 14 82/45 L 100 11/08/17 00:00 11/10/17 07:40 11/10/17 07:40 11/10/17 07:00 11/10/17 07:40 Intake and Output: 11/10/17 11/10/17 06:59 18:59 Intake Total 250 2158 Output Total 1000 Balance 250 1158 - Medications Medications: Current Medications Heparin Sodium/Sodium Chloride (Heparin 11916 Units/250ml 1/2 Normal Saline) 25 ,000 units in 250 mls @ 8.083 mls/hr IV .Q24H PRN; Protocol; 18 UNITS/KG/HR PRN Reason: ADJUST RATE PER PROTOCOL Last Admin: 11/10/17 08:35 Dose: 20 units/kg/hr, 8.981 mls/hr Vancomycin HCl (Vancomycin 1gm) 1 gm in 250 mls @ 167 mls/hr IVPB Q12H ETHAN PRN Reason: Protocol Stop: 11/17/17 10:01 Last Admin: 11/10/17 11:07 Dose: 167 mls/hr Metoclopramide HCl (Reglan) 5 mg IVP ACHS ETHAN Last Admin: 11/10/17 08:48 Dose: 5 mg Pantoprazole Sodium (Protonix Inj) 40 mg IVP Q12 ETHAN Last Admin: 11/10/17 11:06 Dose: 40 mg - Labs Labs: 11/10/17 05:50 11/10/17 05:50 PT 12.8 SECONDS (9.4-12.5) H 11/07/17 14:27 INR 1.12 (0.93-1.08) H 11/07/17 14:27 APTT 31.8 Seconds (25.1-36.5) 11/10/17 05:50 - Constitutional Appears: No Acute Distress - Head Exam Head Exam: NORMOCEPHALIC - Eye Exam Eye Exam: Normal appearance. absent: Scleral icterus - ENT Exam ENT Exam: Mucous Membranes Moist - Respiratory Exam Respiratory Exam: Decreased Breath Sounds, NORMAL BREATHING PATTERN. absent: Respiratory Distress - GI/Abdominal Exam GI & Abdominal Exam: Soft, Normal Bowel Sounds. absent: Distended, Guarding, Tenderness, Rebound - Extremities Exam Extremities Exam: Pedal Edema (right LE edema and erythema. (+) warmth, sensation and movement.). absent: Calf Tenderness - Neurological Exam Neurological Exam: Alert, Awake (aware of surroundings, mentally challenge,poor historian) - Skin Skin Exam: Dry, Warm Assessment and Plan - Assessment and Plan (Free Text) Assessment: Assessment: Anemia, decreased hemoglobin on anticoagulant DVT/PE Colonic obstruction, history of recurrent SBO and multiple abdominal surgery Mentally challenged Sepsis/cellulitis lower extremity right Hyponatremia Plan: Continue clear liquids On heparin drip as per protocol Monitor H&H and for GI bleed Continue GI prophylaxis Patient may need repeat dilatation, will discuss with ICU team regarding timing of flex sigmoidoscopy in IV antibiotics as per ID possible plan for IVC filter w/ Dr. Easley Surgical FU as per ICU team. Seen and discussed with Dr. Davies. <Cristiane Davies V - Last Filed: 11/10/17 23:50> Objective - Vital Signs/Intake and Output Vital Signs (last 24 hours): Temp Pulse Resp BP Pulse Ox 98.4 F 73 12 87/48 L 91 L 11/08/17 00:00 11/10/17 20:15 11/10/17 11:30 11/10/17 11:00 11/10/17 11:10 Intake and Output: 11/10/17 11/11/17 18:59 06:59 Intake Total 2438 Output Total 0 Balance 388 - Medications Medications: Current Medications Heparin Sodium/Sodium Chloride (Heparin 65323 Units/250ml 1/2 Normal Saline) 25 ,000 units in 250 mls @ 8.083 mls/hr IV .Q24H PRN; Protocol; 18 UNITS/KG/HR PRN Reason: ADJUST RATE PER PROTOCOL Last Titration: 11/10/17 15:55 Dose: 17 units/kg/hr, 7.634 mls/hr Vancomycin HCl (Vancomycin 1gm) 1 gm in 250 mls @ 167 mls/hr IVPB Q12H ETHAN PRN Reason: Protocol Stop: 11/17/17 10:01 Last Admin: 11/10/17 21:33 Dose: 167 mls/hr Metoclopramide HCl (Reglan) 5 mg IVP ACHS ETHAN Last Admin: 11/10/17 21:33 Dose: 5 mg Pantoprazole Sodium (Protonix Inj) 40 mg IVP Q12 ETHAN Last Admin: 11/10/17 21:33 Dose: 40 mg - Labs Labs: 11/10/17 05:50 11/10/17 05:50 PT 12.8 SECONDS (9.4-12.5) H 11/07/17 14:27 INR 1.12 (0.93-1.08) H 11/07/17 14:27 APTT 71.6 Seconds (25.1-36.5) H 11/10/17 18:31 Attending/Attestation - Attestation I have personally seen and examined this patient.: Yes I have fully participated in the care of the patient.: Yes I have reviewed all pertinent clinical information, including history, physical exam and plan: Yes Notes (Text): This is an addendum to GI progress report dictated by Samantha Waldron APN.The patient was seen and examined earlier. Medical records, lab studies, imagings were reviewed. Last 24 hours events reviewed. Agreed with the above treatment plan as outlined in Samantha Waldron APN's notes the with the addition of the following 11/10/17 23:49
--- NOTE | 2017-11-10 23:43 | PN ---
DATE: 11/10/2017 SUBJECTIVE: The patient is seen earlier this morning, in no acute distress, the patient is comfortable. The patient was seen in room 128, bed 7. PHYSICAL EXAMINATION: VITAL SIGNS: Temperature is 98, blood pressure is 90/40, respiratory rate of 18, and heart rate of 97. HEENT: Unremarkable. NECK: Supple. LUNGS: Have decreased breath sounds. HEART: Normal S1 and S2. ABDOMEN: Soft, nontender. LABORATORY DATA: Laboratory examination reveals white count of 5.7, hemoglobin of 8, platelets of 192. Chemistries reveal a BUN of 3, creatinine of 0.5 Procalcitonin is 0.7 and stool for occult blood is positive. Vancomycin trough is 10.2, HIV is negative. Blood cultures have no growth. Nares MRSA is not detected. Stool for C. diff antigen and toxin are both negative. The patient is currently on IV vancomycin. ASSESSMENT AND PLAN: This is a 47-year-old male, seen earlier this morning in 128, bed 7, with severe sepsis with right leg cellulitis which is improving, associated deep venous thrombosis, distal colonic obstruction, gastroesophageal reflux disease, chronic anemia, anxiety, history of small bowel obstruction, history of recurrent pneumonia on day #3 of vancomycin, cultures negative, the patient feels much better. We will follow the patient clinically and the leg is improving with vancomycin trough of 10.2, creatinine holding at 0.5 Antwan Del Rosario MD
--- NOTE | 2017-11-11 01:56 | PN ---
DATE: 11/10/2017 PULMONARY PROGRESS NOTE REFERRING PHYSICIAN: Meme Rey MD SUBJECTIVE: The patient is lying in the bed, head at 45 degrees. Night was unremarkable. No headache. No rhinitis. No cough. No nausea. No vomiting. No diarrhea. Right leg swelling is little better, erythema is better. PHYSICAL EXAMINATION GENERAL: In no acute distress. VITAL SIGNS: Temperature is 98, heart rate 73, respiratory rate is 20, blood pressure is 87/48, pulse of 92% on nasal cannula. HEENT: Small oral cavity. Crowded airway. NECK: Supple. No JVD. LUNGS: Has fair airflow with rhonchi. HEART: S1 and S2. ABDOMEN: Soft, nontender, no organomegaly. EXTREMITIES: Right leg swelling is little better, erythema is improved. NEUROLOGIC: Awake and alert, follows simple command. MEDICATIONS: He is on heparin weight-based protocol, Protonix 40 mg twice a day, Reglan 5 mg a.c. and at bedtime, and vancomycin 1 g IV q. 12 hour. LABORATORY DATA: Shows hemoglobin 8.2, hematocrit 25.5, WBC 5.7, platelet is 192. PTT is 72. Sodium 126, potassium 3.8, chloride 108, bicarbonate 16, BUN 3, creatinine 0.5, calcium 7.7, total bili 0.1, AST 24, ALT 23, alk phos is 62. Albumin is 1.5, procalcitonin was 0.74. Stool for C. Diff is negative. IMPRESSION AND PLAN: Right leg deep venous thrombosis, may have a component of cellulitis, pulmonary embolism, bowel obstruction, intellectually disabled. Pulmonary point of view, doing okay. Continue IV heparin, supplemental oxygen, gastric prophylaxis, antibiotics, Gastrointestinal and Surgical followup. Thank you and we will follow with you. Eber Ziegler MD
--- NOTE | 2017-11-11 02:36 | PN ---
DATE: SUBJECTIVE: The patient is a 47-year-old male. Patient was seen and examined at the bedside, feeling better. Awake and alert, had 3 loose bowel movements last night. No melena. No nausea or vomiting. Tolerating clear liquid. No fever. No chills. No abdominal pain. On anticoagulants for DVT and PE. Patient is not a good historian. PHYSICAL EXAMINATION: VITAL SIGNS: Temperature 98.4, pulse 90, respiratory rate 14, blood pressure 82/45, pulse oximetry 100. HEENT: Head: Normocephalic, atraumatic. Eyes: PERRLA. Extraocular muscles intact. Conjunctivae clear. Nose patent. Mucous membrane moist. NECK: Supple. No carotid bruits, JVD, thyromegaly. CHEST: Bilaterally symmetrical. HEART: S1, S2, positive. LUNGS: Clear to auscultation. ABDOMEN: Soft, tender generalized. No organomegaly. EXTREMITIES: No edema. No cyanosis. NEUROLOGIC: The patient is awake, alert, and moving all 4 extremities. MEDICATIONS: Heparin, vancomycin, metoclopramide, Protonix. LABORATORY DATA: White blood cells 5.7, hemoglobin 8.2, hematocrit 25.5, platelet 192. Sodium 126, potassium 3.8, BUN 3, creatinine 0.5, glucose 77. ASSESSMENT: Mr. Sean Dee is a 47-year-old male with anemia, hyponatremia, hyperchloremia, status post blood transfusion, now on anticoagulation, deep vein thrombosis/pulmonary embolism, colonic obstruction, history of frequent small bowel obstruction and multiple abdominal surgeries, mentally challenged, has Down syndrome, sepsis, cellulitis of lower extremities, especially right side, electrolyte imbalance. PLAN: Continue clear liquid. Continue heparin drip as per protocol. Monitor H and H. GI prophylaxis. Patient need repeat dilatation. Discussion done with Dr. Henson. He had discussion done with the other team regarding timing of flexible sigmoidoscopy. Patient is on IV antibiotics. Maybe patient needs IVC filter by Dr Juan Easley, surgical followup. Reviewed Dr. Ziegler's notes also. General surgical team is on the case. CT of chest, abdomen, and pelvis appreciated. Distal colonic obstruction with severe dilatation of the proximal colon. The transition point is seen in the retrosigmoid, possibly partial obstruction. We will follow up. Meme Rey MD
[2017-11-11] MEDS ORDERED: Propofol 10 mg/ml Inj (20 ML) ONE (05:10)
[2017-11-11 07:22] LABS: ALB/GLOB RATIO 0.7 (1.1-1.8); ALBUMIN 1.5 g/dL (3.0-4.8); ALT/SGPT 37 U/L (7-56); AST/SGOT 21 U/L (17-59); BLOOD UREA NITROGEN 2 mg/dL (7-21); CALCIUM 7.6 mg/dL (8.4-10.5); GFR AFRICAN-AMERICAN > 60; GFR NON-AFRICAN AMERICAN > 60
[2017-11-11 08:16] LABS: BASO # 0.01 K/mm3 (0.0-2.0); BASO % 0.2 % (0.0-3.0); EOS # 0.1 (0.0-0.7); EOS % 1.4 % (1.5-5.0); GRAN # 3.04 (1.4-6.5); GRAN % 69.1 % (50.0-68.0); HEMOGLOBIN 8.4 g/dL (14.0-18.0); LYMPH # 0.8 (1.2-3.4); LYMPH % 18.6 % (22.0-35.0); MEAN CELL VOLUME 85.9 fl (80.0-105.0); MEAN CORPUSCULAR HEMOGLOBIN 28.2 pg (25.0-35.0); MEAN CORPUSCULAR HGB CONC 32.8 g/dl (31.0-37.0); MEAN PLATELET VOLUME 10.2 fl (7.0-11.0); MONO # 0.5 (0.1-0.6); MONO % 10.7 % (1.0-6.0); PLATELET COUNT 208 10^3/uL (120.0-450.0); RBC 2.98 10^6/uL (3.5-6.1); RED CELL DISTRIBUTION WIDTH 15.6 % (11.5-14.5); WHITE BLOOD COUNT 4.4 10^3/ul (4.5-11.0)
[2017-11-11 08:27] LABS: IRON 17 ug/dL (45-180)
[2017-11-11 08:38] LABS: % IRON SATURATION 11 % (20-55); TOTAL IRON BINDING CAPACITY 154 ug/dL (261-462)
[2017-11-11] MEDS: Vancomycin 1gm in NS 250ml 1 GM/250 ML BAG IVPB SCH (09:15)
--- NOTE | 2017-11-11 11:08 | CP.PCM.PN ---
Subjective - Date & Time of Evaluation Date of Evaluation: 11/11/17 Time of Evaluation: 10:55 - Subjective Subjective: GENERAL SURGERY CONSULT PROGRESS NOTE FOR DR. RICHARD. Patient has been seen and examined. No overnight events reported. Denies any abdominal pain, nausea, vomiting. Bowel movement reported this morning. He tolerated his liquid diet. Objective - Vital Signs/Intake and Output Vital Signs (last 24 hours): Temp Pulse Resp BP Pulse Ox 98.4 F 80 27 H 103/62 100 11/08/17 00:00 11/11/17 09:01 11/11/17 09:01 11/11/17 09:01 11/11/17 09:01 Intake and Output: 11/11/17 11/11/17 06:59 18:59 Intake Total 292 Output Total 1102 Balance -810 - Medications Medications: Current Medications Heparin Sodium/Sodium Chloride (Heparin 10140 Units/250ml 1/2 Normal Saline) 25 ,000 units in 250 mls @ 8.083 mls/hr IV .Q24H PRN; Protocol; 18 UNITS/KG/HR PRN Reason: ADJUST RATE PER PROTOCOL Last Titration: 11/10/17 15:55 Dose: 17 units/kg/hr, 7.634 mls/hr Vancomycin HCl (Vancomycin 1gm) 1 gm in 250 mls @ 167 mls/hr IVPB Q12H [facility]AN PRN Reason: Protocol Stop: 11/17/17 10:01 Last Admin: 11/11/17 09:15 Dose: 167 mls/hr Metoclopramide HCl (Reglan) 5 mg IVP ACHS [facility] Last Admin: 11/11/17 08:25 Dose: 5 mg Pantoprazole Sodium (Protonix Inj) 40 mg IVP Q12 [facility]AN Last Admin: 11/11/17 09:15 Dose: 40 mg - Labs Labs: 11/11/17 08:12 11/11/17 05:30 PT 12.8 SECONDS (9.4-12.5) H 11/07/17 14:27 INR 1.12 (0.93-1.08) H 11/07/17 14:27 APTT 50.6 Seconds (25.1-36.5) H 11/11/17 05:30 - Additional Findings Additional findings: - Constitutional Appears: Well, No Acute Distress - Head Exam Head Exam: ATRAUMATIC - Eye Exam Eye Exam: Normal appearance - ENT Exam ENT Exam: Mucous Membranes Moist - Respiratory Exam Respiratory Exam: NORMAL BREATHING PATTERN - Cardiovascular Exam Cardiovascular Exam: RRR - GI/Abdominal Exam GI & Abdominal Exam: Soft. absent: Distended, Guarding, Rebound, Tenderness - Extremities Exam Extremities exam: Positive for: tenderness (RLE with erythema and edema noted ) , pedal pulses present - Neurological Exam Neurological exam: Alert - Skin Skin Exam: Dry, Warm Assessment and Plan - Assessment and Plan (Free Text) Assessment: 47M with RLE DVT and small b/l PEs, being evaluated by surgery to r/o SBO CT Chest/Abd/Pelvis (11/09/17): Distal colonic obstruction with severe dilatation of the proximal colon. The transition point is seen in the rectosigmoid. Plan: - Advance to Soft Regular Diet. - Per GI, family does not want dilitation - monitor H/H - Recommend Flexible sigmoidoscopy when stable. - No surgical intervention indicated at this time. Cont. Medical management. - Further Recs as per Dr. Sixto Carlson, PGY-1
--- NOTE | 2017-11-11 11:19 | CP.PCM.PN ---
<Samantha Waldron - Last Filed: 11/11/17 11:18> Subjective - Date & Time of Evaluation Date of Evaluation: 11/11/17 Time of Evaluation: 09:30 - Subjective Subjective: S&E at bedside, chart reviewed, no acute overnight events. Tolerating clear liquid, asking for jello, having liquid BM, no bleeding or abdominal pain reported. On Heparin drip as per protocol. Objective - Vital Signs/Intake and Output Vital Signs (last 24 hours): Temp Pulse Resp BP Pulse Ox 98.4 F 80 27 H 103/62 100 11/08/17 00:00 11/11/17 09:01 11/11/17 09:01 11/11/17 09:01 11/11/17 09:01 Intake and Output: 11/11/17 11/11/17 06:59 18:59 Intake Total 292 Output Total 1102 Balance -810 - Medications Medications: Current Medications Heparin Sodium/Sodium Chloride (Heparin 90489 Units/250ml 1/2 Normal Saline) 25 ,000 units in 250 mls @ 8.083 mls/hr IV .Q24H PRN; Protocol; 18 UNITS/KG/HR PRN Reason: ADJUST RATE PER PROTOCOL Last Titration: 11/10/17 15:55 Dose: 17 units/kg/hr, 7.634 mls/hr Vancomycin HCl (Vancomycin 1gm) 1 gm in 250 mls @ 167 mls/hr IVPB Q12H [facility]AN PRN Reason: Protocol Stop: 11/17/17 10:01 Last Admin: 11/11/17 09:15 Dose: 167 mls/hr Metoclopramide HCl (Reglan) 5 mg IVP ACHS [facility] Last Admin: 11/11/17 08:25 Dose: 5 mg Pantoprazole Sodium (Protonix Inj) 40 mg IVP Q12 [facility]AN Last Admin: 11/11/17 09:15 Dose: 40 mg - Labs Labs: 11/11/17 08:12 11/11/17 05:30 PT 12.8 SECONDS (9.4-12.5) H 11/07/17 14:27 INR 1.12 (0.93-1.08) H 11/07/17 14:27 APTT 50.6 Seconds (25.1-36.5) H 11/11/17 05:30 - Constitutional Appears: No Acute Distress - Head Exam Head Exam: NORMOCEPHALIC - Eye Exam Eye Exam: Normal appearance. absent: Scleral icterus - ENT Exam ENT Exam: Mucous Membranes Moist - Neck Exam Neck Exam: Normal Inspection - Respiratory Exam Respiratory Exam: Decreased Breath Sounds, NORMAL BREATHING PATTERN. absent: Respiratory Distress - Cardiovascular Exam Cardiovascular Exam: +S1, +S2 - GI/Abdominal Exam GI & Abdominal Exam: Soft, Hypoactive Bowel Sounds. absent: Guarding, Tenderness, Rebound - Extremities Exam Extremities Exam: Pedal Edema (right leg erythema/edema R>L). absent: Calf Tenderness - Neurological Exam Neurological Exam: Alert, Awake, Oriented x3 - Skin Skin Exam: Dry, Warm Assessment and Plan - Assessment and Plan (Free Text) Assessment: ssessment: Anemia, decreased hemoglobin on anticoagulant DVT/PE Colonic obstruction, history of recurrent SBO and multiple abdominal surgery H/O anastmotic ulcer Mentally challenged Sepsis/cellulitis lower extremity right Hyponatremia Plan: on clears, advance as tolerated On heparin drip as per protocol Monitor H&H and for GI bleed on Reglan Continue GI prophylaxis in IV antibiotics as per ID Surgical FU as per ICU team. discuss w/ Dr. Henson who has spoken to patient sister, informed that does not want colonic dilitation, patient have multiple bowel incidents. Will monitor closely, any drop in HBG or active GIB, consider EGD/flexsig. Seen and discussed with Dr. Davies <Cristiane Davies V - Last Filed: 11/11/17 23:37> Objective - Vital Signs/Intake and Output Vital Signs (last 24 hours): Temp Pulse Resp BP Pulse Ox 98.4 F 92 H 12 113/56 L 97 11/08/17 00:00 11/11/17 13:10 11/11/17 13:10 11/11/17 13:00 11/11/17 11:50 Intake and Output: 11/11/17 11/12/17 18:59 06:59 Intake Total 220 300 Output Total 600 Balance 220 -300 - Medications Medications: Current Medications Doxycycline Hyclate (Doryx) 100 mg PO Q12 ETHAN PRN Reason: Protocol Stop: 11/16/17 22:01 Last Admin: 11/11/17 21:15 Dose: 100 mg Heparin Sodium/Sodium Chloride (Heparin 60294 Units/250ml 1/2 Normal Saline) 25 ,000 units in 250 mls @ 8.083 mls/hr IV .Q24H PRN; Protocol; 18 UNITS/KG/HR PRN Reason: ADJUST RATE PER PROTOCOL Last Admin: 11/11/17 15:14 Dose: 17 units/kg/hr, 7.634 mls/hr Metoclopramide HCl (Reglan) 5 mg IVP ACHS [facility] Last Admin: 11/11/17 21:15 Dose: 5 mg Pantoprazole Sodium (Protonix Inj) 40 mg IVP Q12 [facility]AN Last Admin: 11/11/17 21:19 Dose: 40 mg - Labs Labs: 11/11/17 08:12 11/11/17 05:30 PT 12.8 SECONDS (9.4-12.5) H 11/07/17 14:27 INR 1.12 (0.93-1.08) H 11/07/17 14:27 APTT 50.6 Seconds (25.1-36.5) H 11/11/17 05:30 Attending/Attestation - Attestation I have personally seen and examined this patient.: Yes I have fully participated in the care of the patient.: Yes I have reviewed all pertinent clinical information, including history, physical exam and plan: Yes Notes (Text): This is an addendum to GI progress report dictated by Smaantha Waldron APN.The patient was seen and examined earlier. Medical records, lab studies, imagings were reviewed. Last 24 hours events reviewed. Agreed with the above treatment plan as outlined in Samantha Waldron APN's notes the with the addition of the following 11/11/17 23:37
--- NOTE | 2017-11-11 13:13 | CP.PCM.PN ---
<Cristina Alford - Last Filed: 11/11/17 13:09> Subjective - Date & Time of Evaluation Date of Evaluation: 11/11/17 Time of Evaluation: 11:30 - Subjective Subjective: Chief complaint: R leg swelling 47 yr male w/ hstory of intellectual disability, anemia, GERD, aspiration pneumonia, multiple abdominal surgeries, perforation of stomach, anxiety, recurrent pneumonia, & chronic constipation. Pt seen at bedside. His leg edema is decreased. Pt is a poor historian due to his mental disability. Denies any fever, chills, chest pain, shortness of breath, abdominal pain, nausea, vomiting or urinary problems. Objective - Vital Signs/Intake and Output Vital Signs (last 24 hours): Temp Pulse Resp BP Pulse Ox 98.4 F 110 H 21 80/48 L 97 11/08/17 00:00 11/11/17 12:50 11/11/17 12:50 11/11/17 12:29 11/11/17 11:50 Intake and Output: 11/11/17 11/11/17 06:59 18:59 Intake Total 292 Output Total 1102 Balance -810 - Medications Medications: Current Medications Heparin Sodium/Sodium Chloride (Heparin 17210 Units/250ml 1/2 Normal Saline) 25 ,000 units in 250 mls @ 8.083 mls/hr IV .Q24H PRN; Protocol; 18 UNITS/KG/HR PRN Reason: ADJUST RATE PER PROTOCOL Last Titration: 11/10/17 15:55 Dose: 17 units/kg/hr, 7.634 mls/hr Vancomycin HCl (Vancomycin 1gm) 1 gm in 250 mls @ 167 mls/hr IVPB Q12H ETHAN PRN Reason: Protocol Stop: 11/17/17 10:01 Last Admin: 11/11/17 09:15 Dose: 167 mls/hr Metoclopramide HCl (Reglan) 5 mg IVP ACHS [facility] Last Admin: 11/11/17 12:41 Dose: 5 mg Pantoprazole Sodium (Protonix Inj) 40 mg IVP Q12 [facility] Last Admin: 11/11/17 09:15 Dose: 40 mg - Labs Labs: 11/11/17 08:12 11/11/17 05:30 PT 12.8 SECONDS (9.4-12.5) H 11/07/17 14:27 INR 1.12 (0.93-1.08) H 11/07/17 14:27 APTT 50.6 Seconds (25.1-36.5) H 11/11/17 05:30 - Constitutional Appears: Chronically Ill - Head Exam Head Exam: ATRAUMATIC, NORMAL INSPECTION, NORMOCEPHALIC - Eye Exam Eye Exam: EOMI, Normal appearance, PERRL Pupil Exam: NORMAL ACCOMODATION, PERRL - ENT Exam ENT Exam: Mucous Membranes Moist, Normal Exam - Neck Exam Neck Exam: Full ROM, Normal Inspection. absent: Lymphadenopathy - Respiratory Exam Respiratory Exam: Clear to Ausculation Bilateral, NORMAL BREATHING PATTERN - Cardiovascular Exam Cardiovascular Exam: +S1, +S2 - GI/Abdominal Exam GI & Abdominal Exam: Soft, Hyperactive Bowel Sounds - Exam Additional comments: catheter intact. adequate c/y urine. - Extremities Exam Additional comments: R lower extremity, erythema, edema +1, tenderness. - Back Exam Back Exam: NORMAL INSPECTION - Neurological Exam Neurological Exam: Alert, Awake - Psychiatric Exam Psychiatric exam: Normal Affect, Normal Mood - Skin Skin Exam: Dry, Pallor, Warm Assessment and Plan (1) Dehydration Status: Acute (2) Mentally disabled Status: Chronic (3) Cellulitis Status: Acute (4) DVT (deep venous thrombosis) Status: Acute (5) Hyponatremia Status: Acute (6) GI bleed Status: Acute (7) Severe anemia Status: Acute (8) Colonic obstruction Status: Acute (9) Pulmonary embolism Status: Acute - Assessment and Plan (Free Text) Plan: Tolerating clear liquid diet will advance to soft regular diet. Pt does not want colonic dilation, perhaps EGD/flexsig will be done. IV heparin per protocol. IV vanco. IV protonix. Possible IVC filter placement. Consults: Pulmonary - Dr. Ziegler ID - Dr. Del Rosario IR - Dr. Chloe Easley GI - [facility] Surgery - Dr. Brown Henson Reviewed: CXR = WNL R lower ext US = R extensive iliofemoral DVT ECG = NSR CTA chest/abd/pelvis = distal colonic obstruction w/ severe dilation of the proximal colon. the transition point is seen in rectosigmoid. very small bilateral pulmonary emboli CT chest = VQ scan = low probability for pulmonary embolism <Meme Rey - Last Filed: 11/11/17 20:37> Objective - Vital Signs/Intake and Output Vital Signs (last 24 hours): Temp Pulse Resp BP Pulse Ox 98.4 F 92 H 12 113/56 L 97 11/08/17 00:00 11/11/17 13:10 11/11/17 13:10 11/11/17 13:00 11/11/17 11:50 Intake and Output: 11/11/17 11/12/17 18:59 06:59 Intake Total 220 Balance 220 - Medications Medications: Current Medications Doxycycline Hyclate (Doryx) 100 mg PO Q12 [facility]AN PRN Reason: Protocol Stop: 11/16/17 22:01 Heparin Sodium/Sodium Chloride (Heparin 30644 Units/250ml 1/2 Normal Saline) 25 ,000 units in 250 mls @ 8.083 mls/hr IV .Q24H PRN; Protocol; 18 UNITS/KG/HR PRN Reason: ADJUST RATE PER PROTOCOL Last Admin: 11/11/17 15:14 Dose: 17 units/kg/hr, 7.634 mls/hr Metoclopramide HCl (Reglan) 5 mg IVP ACHS [facility] Last Admin: 11/11/17 16:33 Dose: 5 mg Pantoprazole Sodium (Protonix Inj) 40 mg IVP Q12 [facility] Last Admin: 11/11/17 09:15 Dose: 40 mg - Labs Labs: 11/11/17 08:12 11/11/17 05:30 PT 12.8 SECONDS (9.4-12.5) H 11/07/17 14:27 INR 1.12 (0.93-1.08) H 11/07/17 14:27 APTT 50.6 Seconds (25.1-36.5) H 11/11/17 05:30 Assessment and Plan - Assessment and Plan (Free Text) Plan: 47 yr male w/ hstory of intellectual disability, anemia, GERD, aspiration pneumonia, multiple abdominal surgeries, perforation of stomach, anxiety, recurrent pneumonia, & chronic constipation. Pt seen at bedside. His leg edema is decreased. Pt is a poor historian due to his mental disability. Denies any fever, chills, chest pain, shortness of breath, abdominal pain, nausea, vomiting or urinary problems. 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
[2017-11-11 15:13] LABS: FOLATE 7.6 ng/mL
[2017-11-11] MEDS: Heparin25000 units/250ml 1/2NS 25,000 UNITS/250 ML BAG IV PRN (15:14)
--- NOTE | 2017-11-11 19:09 | PN ---
DATE: 11/11/2017 PULMONARY PROGRESS NOTE REFERRING PHYSICIAN: Meme Rey MD SUBJECTIVE: He is lying in the bed, comfortable. Night was unremarkable. No cough, no sputum production. Has a fair appetite appetite. Having bowel movement. No abdominal pain. Right leg swelling is improved, erythema is improved. OBJECTIVE: GENERAL: In no acute distress. VITAL SIGNS: Temperature is 98, heart rate is 92, respiratory rate is 14, blood pressure 113/56, pulse ox is 97% on nasal cannula. HEENT: Moist mucous membranes. No ulcer or thrush noted. NECK: Supple. No JVD. LUNGS: Have a fair airflow with rhonchi. HEART: S1 and S2. ABDOMEN: Soft, nontender, nondistended. EXTREMITIES: Right leg edema is better, has diffuse erythema. NEUROLOGIC: Awake and follows simple commands. MEDICATIONS: He is on heparin IV, weight-based protocol; Protonix 40 mg q. 12 hour; Reglan 5 mg a.c. and at bedtime; vancomycin 1 g IV q. 12 hour. LABORATORY DATA: Shows hemoglobin 8.4, hematocrit 25.6, WBC 4.4, platelet count is 208; reticulocyte count is 452, PTT is 51. Iron is 17. AST 21, ALT 37, alk phos is 61. Vitamin B12 is 295, folate is 7.6. Microbiology: Blood culture, urine culture, stool for C. diff., all negative. IMPRESSION AND PLAN: Right leg deep vein thrombosis with cellulitis; bilateral pulmonary embolism; history of bowel obstruction, had multiple abdominal surgeries including gastrectomy, small bowel resection, recurrent obstruction, presently has mechanical obstruction, but he is having good bowel movement with good appetite. Because of high risk of patient surgically, for now, we will continue IV heparin; watch hemoglobin and hematocrit closely; no surgical maneuver at present time. If there is any issue, we will deal with it. May add B12. Ferritin is still pending, but we will give him iron IV. If hemoglobin and hematocrit start dropping, may have to give bone marrow stimulant. Thank you and we will follow with you. Eber Ziegler MD
--- NOTE | 2017-11-11 19:36 | CP.PCM.PCO ---
Physician Communication Note - Physician Communication Note Physician Communication Note: 20#wgt loss/[id number] [employer] for food stamp reinstatement
[2017-11-12 06:31] LABS: MEAN CELL VOLUME 86.1 fl (80.0-105.0); MEAN CORPUSCULAR HEMOGLOBIN 27.7 pg (25.0-35.0); MEAN CORPUSCULAR HGB CONC 32.2 g/dl (31.0-37.0); MEAN PLATELET VOLUME 9.9 fl (7.0-11.0); RBC 2.67 10^6/uL (3.5-6.1); RED CELL DISTRIBUTION WIDTH 15.5 % (11.5-14.5)
[2017-11-12 06:59] LABS: HEMOGLOBIN 7.4 g/dL (14.0-18.0)
[2017-11-12 08:02] LABS: ALB/GLOB RATIO 0.7 (1.1-1.8); ALBUMIN 1.5 g/dL (3.0-4.8); ALT/SGPT 32 U/L (7-56); AST/SGOT 21 U/L (17-59); BLOOD UREA NITROGEN 7 mg/dL (7-21); CALCIUM 7.5 mg/dL (8.4-10.5); GFR AFRICAN-AMERICAN > 60; GFR NON-AFRICAN AMERICAN > 60
--- NOTE | 2017-11-12 08:16 | CP.PCM.PCO ---
Physician Communication Note - Physician Communication Note Physician Communication Note: Needs 1 unit PRBC/Iron infusion today
--- NOTE | 2017-11-12 09:35 | CP.PCM.PN ---
Addendum entered and electronically signed by Lizz Carlson DO 11/12/17 13:10: Plan: Recommend Dietary Consult and Iron Supplementation. Original Note: <Lizz Carlson - Last Filed: 11/12/17 13:07> Subjective - Date & Time of Evaluation Date of Evaluation: 11/12/17 Time of Evaluation: 09:32 - Subjective Subjective: GENERAL SURGERY CONSULT PROGRESS NOTE FOR DR. HENSON. Patient has been seen and examined. No overnight events reported. Denies any abdominal pain, nausea, vomiting, or SOB. Tolerating diet. Objective - Vital Signs/Intake and Output Vital Signs (last 24 hours): Temp Pulse Resp BP Pulse Ox 98.1 F 76 18 91/49 L 96 11/12/17 09:06 11/12/17 09:06 11/12/17 09:06 11/12/17 09:06 11/12/17 09:06 Intake and Output: 11/12/17 11/12/17 06:59 18:59 Intake Total 420 154 Output Total 800 Balance -380 154 - Medications Medications: Current Medications Doxycycline Hyclate (Doryx) 100 mg PO Q12 [facility]AN PRN Reason: Protocol Stop: 11/16/17 22:01 Last Admin: 11/12/17 09:18 Dose: 100 mg Heparin Sodium/Sodium Chloride (Heparin 73500 Units/250ml 1/2 Normal Saline) 25 ,000 units in 250 mls @ 8.083 mls/hr IV .Q24H PRN; Protocol; 18 UNITS/KG/HR PRN Reason: ADJUST RATE PER PROTOCOL Last Titration: 11/12/17 07:27 Dose: 19 units/kg/hr, 8.532 mls/hr Metoclopramide HCl (Reglan) 5 mg IVP ACHS [facility] Last Admin: 11/11/17 21:15 Dose: 5 mg Pantoprazole Sodium (Protonix Inj) 40 mg IVP Q12 [facility]AN Last Admin: 11/12/17 09:17 Dose: 40 mg - Labs Labs: 11/12/17 05:45 11/12/17 05:45 PT 12.8 SECONDS (9.4-12.5) H 11/07/17 14:27 INR 1.12 (0.93-1.08) H 11/07/17 14:27 APTT 39.2 Seconds (25.1-36.5) H 11/12/17 05:45 - Additional Findings Additional findings: - Constitutional Appears: Well, No Acute Distress - Head Exam Head Exam: ATRAUMATIC - Eye Exam Eye Exam: Normal appearance - ENT Exam ENT Exam: Mucous Membranes Moist - Respiratory Exam Respiratory Exam: NORMAL BREATHING PATTERN - Cardiovascular Exam Cardiovascular Exam: RRR - GI/Abdominal Exam GI & Abdominal Exam: Soft. absent: Distended, Guarding, Rebound, Tenderness - Extremities Exam Extremities exam: Positive for: tenderness (RLE with erythema and edema noted ) , pedal pulses present - Neurological Exam Neurological exam: Alert - Skin Skin Exam: Dry, Warm Assessment and Plan - Assessment and Plan (Free Text) Assessment: 47M with RLE DVT and small b/l PEs, being evaluated by surgery to r/o SBO Plan: - Advance Diet as tolerated - Per GI, family does not want dilitation - monitor H/H. - 2 Units of PRBC' ordered today by primary - Recommend Flexible sigmoidoscopy when stable. - No surgical intervention indicated at this time. Cont. Medical management. - Further Recs as per Dr. Sixto Carlson, PGY-1 <Andres Henson - Last Filed: 11/12/17 20:22> Objective - Vital Signs/Intake and Output Vital Signs (last 24 hours): Temp Pulse Resp BP Pulse Ox 98.6 F 105 H 18 103/65 97 11/12/17 17:17 11/12/17 18:00 11/12/17 17:17 11/12/17 17:17 11/12/17 16:00 Intake and Output: 11/12/17 11/13/17 18:59 06:59 Intake Total 1415 Output Total 601 Balance 814 - Medications Medications: Current Medications Cyanocobalamin (Vitamin B12 1000 Mcg/Ml Inj) 1,000 mcg IM DAILY [facility]AN Last Admin: 11/12/17 11:15 Dose: 1,000 mcg Doxycycline Hyclate (Doryx) 100 mg PO Q12 [facility]AN PRN Reason: Protocol Stop: 11/16/17 22:01 Last Admin: 11/12/17 09:18 Dose: 100 mg Heparin Sodium/Sodium Chloride (Heparin 34273 Units/250ml 1/2 Normal Saline) 25 ,000 units in 250 mls @ 8.083 mls/hr IV .Q24H PRN; Protocol; 18 UNITS/KG/HR PRN Reason: ADJUST RATE PER PROTOCOL Last Admin: 11/12/17 12:55 Dose: 17 units/kg/hr, 7.634 mls/hr Iron Sucrose 100 mg/ Sodium (Chloride) 105 mls @ 210 mls/hr IVPB ONCE ONE Stop: 11/13/17 10:29 Metoclopramide HCl (Reglan) 5 mg IVP ACHS [facility] Last Admin: 11/12/17 19:10 Dose: 5 mg Pantoprazole Sodium (Protonix Inj) 40 mg IVP Q12 [facility] Last Admin: 11/12/17 09:17 Dose: 40 mg - Labs Labs: 11/12/17 05:45 11/12/17 05:45 PT 12.8 SECONDS (9.4-12.5) H 11/12/17 12:05 INR 1.11 (0.93-1.08) H 11/12/17 12:05 APTT 50.5 Seconds (25.1-36.5) H 11/12/17 18:15 Assessment and Plan - Assessment and Plan (Free Text) Assessment: Dx Severe Marasmus(Dietary etiology) Anemia(3 Unit PRBC) 20# weight loss(6Months) Chr IlealSigmoid [id number] obstructing) Mental Retardation(est functioning age 5) Chr Recurring Gastrojejunal Perforating Ulcer Diathesis(Controlled BID PPI) Bala Blood/Iron replacement Social Work involvement to restore Foodstamps Sigmoidoscopy then attemp to taper Reglan Stabilize the DVT Rx-?Pradaxa which is Reversible No plans for surgery Handy Henson MD FACS
[2017-11-12 12:19] LABS: FERRITIN 26.3 ng/mL
[2017-11-12 12:30] LABS: INR 1.11 (0.93-1.08); PROTHROMBIN TIME 12.8 SECONDS (9.4-12.5)
[2017-11-12 12:50] LABS: PARTIAL THROMBOPLASTIN TIME 80.9 Seconds (25.1-36.5)
--- NOTE | 2017-11-12 12:50 | CON ---
DATE: 11/12/2017 CONSULT REQUESTED BY: Meme Rey MD. REASON FOR CONSULTATION: Severe anemia. HISTORY OF PRESENT ILLNESS: Mr. Dee is a 47-year-old male with mental retardation, chronic anemia, GERD aspiration pneumonia. He had multiple abdominal surgeries. he is admitted with right lower extremity swelling. Doppler of lower extremity showed extensive DVT in right iliofemoral vein. CAT scan of chest, abdomen and pelvis was done also showed distal colonic obstruction and multiple small pulmonary emboli. He has been on heparin drip. Since admission, hematocrit dropped to 7.4 g/dL. Stool occult blood is positive. GI distributed energy systems consultant has been following the patient. No fever. No chills. No rigors. No nausea. No vomiting. PAST MEDICAL HISTORY: Aspiration pneumonia, chronic constipation, multiple abdominal surgeries, multiple blood transfusion in the past. History of small bowel resection, history of colostomy and reversal, history of colitis. FAMILY HISTORY: Noncontributory. PERSONAL HISTORY: Never smoked. No history of alcohol abuse. ALLERGIES: NO KNOWN DRUG ALLERGIES. HOME MEDICATIONS: Vitamin D, B12 and iron. REVIEW OF SYSTEMS: As per HPI. Rest of 12-point review of systems reviewed negative. PHYSICAL EXAMINATION: GENERAL: Comfortable in bed, in no acute distress. VITAL SIGNS: Temperature 97.5, heart rate is 94 per minute, respiratory rate 15 per minute, blood pressure 100/60, pulse ox 99% on room air. HEENT: Normocephalic, atraumatic. NECK: Supple. No lymphadenopathy. CHEST: Air entry present and equal bilaterally. No added sounds. CARDIOVASCULAR: S1, S2 normal. No murmur. No gallop. ABDOMEN: Soft, nontender, nondistended. EXTREMITIES: Right lower extremity edema. NEUROLOGIC: Awake, alert. Not oriented to time, place. LABORATORY DATA: Stool occult positive. White count 5, hemoglobin 7.4, hematocrit 23, platelet 228. Sodium 129, potassium 4.1, calcium 7.5, iron 17, iron saturation 11%, bilirubin 0.1. HIV nonreactive. CURRENT MEDICATIONS: Doxycycline 100 q. 12, metoprolol at bedtime, Protonix 40 q. 12, heparin drip. ASSESSMENT: 1. Distal colonic obstruction. 2. Severe anemia. 3. Deep venous thrombosis, right extremity; pulmonary embolism. 4. Mentally challenged. 5. Multiple abdominal surgeries. PLAN: Hemoglobin declined to 7.4. We will give 2 units of blood transfusion ordered. No evidence of hemolysis. he has severe iron deficiency. We will initiate IV iron. he also has B12 deficiency. B12 level borderline 295. He was given 1 dose of B12 yesterday. We will continue B12 of 1 mg IM daily during hospitalization. Renal function is within normal limits. Dr. Henson' and Dr. Davies's note reviewed. CT abdomen and pelvis, no mass lesion. Sepsis resolved. Currently, on p.o. antibiotics. Continue Heparin drip until stable. Can be transitioned to eliquis when stable. Thank you Dr. Rey for allowing us to participate in Mr. Dee's care. Candace Murillo MD KAVYA
[2017-11-12] MEDS: Heparin25000 units/250ml 1/2NS 25,000 UNITS/250 ML BAG IV PRN ×2 (12:55→22:02)
[2017-11-12] MEDS ORDERED: Iron Sucrose 100 mg/5 ml Inj IVP ONE (16:08)
--- NOTE | 2017-11-12 16:51 | CP.PCM.PN ---
Subjective - Date & Time of Evaluation Date of Evaluation: 11/12/17 Time of Evaluation: 11:10 - Subjective Subjective: Comfortable, no fevers, less pain in his right leg. Objective - Vital Signs/Intake and Output Vital Signs (last 24 hours): Temp Pulse Resp BP Pulse Ox 97.8 F 89 18 109/62 97 11/12/17 16:00 11/12/17 16:00 11/12/17 16:00 11/12/17 16:00 11/12/17 16:00 Intake and Output: 11/12/17 11/12/17 06:59 18:59 Intake Total 420 1090 Output Total 800 601 Balance -380 489 - Medications Medications: Current Medications Cyanocobalamin (Vitamin B12 1000 Mcg/Ml Inj) 1,000 mcg IM DAILY [facility] Last Admin: 11/12/17 11:15 Dose: 1,000 mcg Doxycycline Hyclate (Doryx) 100 mg PO Q12 [facility]AN PRN Reason: Protocol Stop: 11/16/17 22:01 Last Admin: 11/12/17 09:18 Dose: 100 mg Heparin Sodium/Sodium Chloride (Heparin 17027 Units/250ml 1/2 Normal Saline) 25 ,000 units in 250 mls @ 8.083 mls/hr IV .Q24H PRN; Protocol; 18 UNITS/KG/HR PRN Reason: ADJUST RATE PER PROTOCOL Last Admin: 11/12/17 12:55 Dose: 17 units/kg/hr, 7.634 mls/hr Iron Sucrose 100 mg/ Sodium (Chloride) 105 mls @ 210 mls/hr IVPB ONCE ONE Stop: 11/13/17 10:29 Metoclopramide HCl (Reglan) 5 mg IVP ACHS [facility] Last Admin: 11/12/17 14:31 Dose: 5 mg Pantoprazole Sodium (Protonix Inj) 40 mg IVP Q12 [facility] Last Admin: 11/12/17 09:17 Dose: 40 mg - Labs Labs: 11/12/17 05:45 11/12/17 05:45 PT 12.8 SECONDS (9.4-12.5) H 11/12/17 12:05 INR 1.11 (0.93-1.08) H 11/12/17 12:05 APTT 80.9 Seconds (25.1-36.5) H 11/12/17 12:05 - Constitutional Appears: Chronically Ill - Head Exam Head Exam: NORMAL INSPECTION - ENT Exam ENT Exam: Mucous Membranes Moist - Neck Exam Neck Exam: absent: Meningismus - Respiratory Exam Respiratory Exam: Decreased Breath Sounds - Cardiovascular Exam Cardiovascular Exam: +S1, +S2 - GI/Abdominal Exam GI & Abdominal Exam: Soft. absent: Tenderness - Extremities Exam Additional comments: right leg with dressings in place Assessment and Plan - Assessment and Plan (Free Text) Plan: Assessment Severe sepsis due to right leg cellulitis with associated DVT distal colonic obstruction GERD chronic anemia anxiety history of SBO history of recurrent pneumonia Plan continue Vancomycin day 5 - complete 7-10 days of therapy; blood cx are negative will continue to monitor clinically
--- NOTE | 2017-11-12 17:44 | CP.PCM.PN ---
<Samantha Waldron - Last Filed: 11/12/17 17:44> Subjective - Date & Time of Evaluation Date of Evaluation: 11/12/17 Time of Evaluation: 10:45 - Subjective Subjective: Seen and examined at the bedside earlier today, chart reviewed. Patient is pending blood transfusion, hemoglobinat 7.4 this morning. No reports of overt GI bleed. Patient continues to tolerate pure diet. Continues to have brown liquid BMs. No reports of melena or bright red blood per rectum or hematemesis. Patient denies nausea, vomiting, or abdominal pain. Objective - Vital Signs/Intake and Output Vital Signs (last 24 hours): Temp Pulse Resp BP Pulse Ox 98.6 F 104 H 18 103/65 97 11/12/17 17:17 11/12/17 17:17 11/12/17 17:17 11/12/17 17:17 11/12/17 16:00 Intake and Output: 11/12/17 11/12/17 06:59 18:59 Intake Total 420 1415 Output Total 800 601 Balance -380 814 - Medications Medications: Current Medications Cyanocobalamin (Vitamin B12 1000 Mcg/Ml Inj) 1,000 mcg IM DAILY [facility] Last Admin: 11/12/17 11:15 Dose: 1,000 mcg Doxycycline Hyclate (Doryx) 100 mg PO Q12 [facility]AN PRN Reason: Protocol Stop: 11/16/17 22:01 Last Admin: 11/12/17 09:18 Dose: 100 mg Heparin Sodium/Sodium Chloride (Heparin 23187 Units/250ml 1/2 Normal Saline) 25 ,000 units in 250 mls @ 8.083 mls/hr IV .Q24H PRN; Protocol; 18 UNITS/KG/HR PRN Reason: ADJUST RATE PER PROTOCOL Last Admin: 11/12/17 12:55 Dose: 17 units/kg/hr, 7.634 mls/hr Iron Sucrose 100 mg/ Sodium (Chloride) 105 mls @ 210 mls/hr IVPB ONCE ONE Stop: 11/13/17 10:29 Metoclopramide HCl (Reglan) 5 mg IVP ACHS [facility] Last Admin: 11/12/17 14:31 Dose: 5 mg Pantoprazole Sodium (Protonix Inj) 40 mg IVP Q12 [facility] Last Admin: 11/12/17 09:17 Dose: 40 mg - Labs Labs: 11/12/17 05:45 11/12/17 05:45 PT 12.8 SECONDS (9.4-12.5) H 11/12/17 12:05 INR 1.11 (0.93-1.08) H 11/12/17 12:05 APTT 80.9 Seconds (25.1-36.5) H 11/12/17 12:05 - Constitutional Appears: No Acute Distress - Eye Exam Eye Exam: absent: Scleral icterus - ENT Exam ENT Exam: Mucous Membranes Moist - Respiratory Exam Respiratory Exam: NORMAL BREATHING PATTERN. absent: Respiratory Distress - Cardiovascular Exam Cardiovascular Exam: +S1, +S2 - GI/Abdominal Exam GI & Abdominal Exam: Soft, Normal Bowel Sounds. absent: Guarding, Tenderness, Rebound - Extremities Exam Extremities Exam: absent: Calf Tenderness Additional comments: Right leg erythema with some improvement - Neurological Exam Neurological Exam: Alert, Awake, Oriented x3 - Skin Skin Exam: Dry, Warm Assessment and Plan - Assessment and Plan (Free Text) Assessment: Assessment: Anemia, decreased hemoglobin on anticoagulant DVT/PE Colonic obstruction, history of recurrent SBO and multiple abdominal surgery H/O anastmotic ulcer Mentally challenged Sepsis/cellulitis lower extremity right Hyponatremia Plan: puree diet On heparin drip as per protocol Monitor H&H and for GI bleed on Reglan Continue GI prophylaxis spoke to Dr. Murillo, patient for blood transfusion today. in IV antibiotics as per ID Surgical FU sister, informed that does not want colonic dilitation, patient have multiple bowel incidents. Will monitor closely, if continued drop in HBG or active GIB, consider EGD/flexsig. Seen and discussed with Dr. Davies <Cristiane Davies V - Last Filed: 11/13/17 00:12> Objective - Vital Signs/Intake and Output Vital Signs (last 24 hours): Temp Pulse Resp BP Pulse Ox 98.6 F 105 H 18 103/65 97 11/12/17 17:17 11/12/17 18:00 11/12/17 17:17 11/12/17 17:17 11/12/17 16:00 Intake and Output: 11/12/17 11/13/17 18:59 06:59 Intake Total 1415 670 Output Total 601 1400 Balance 814 -730 - Medications Medications: Current Medications Cyanocobalamin (Vitamin B12 1000 Mcg/Ml Inj) 1,000 mcg IM DAILY [facility] Last Admin: 11/12/17 11:15 Dose: 1,000 mcg Doxycycline Hyclate (Doryx) 100 mg PO Q12 [facility]AN PRN Reason: Protocol Stop: 11/16/17 22:01 Last Admin: 11/12/17 21:34 Dose: 100 mg Heparin Sodium/Sodium Chloride (Heparin 44992 Units/250ml 1/2 Normal Saline) 25 ,000 units in 250 mls @ 8.083 mls/hr IV .Q24H PRN; Protocol; 18 UNITS/KG/HR PRN Reason: ADJUST RATE PER PROTOCOL Last Admin: 11/12/17 22:02 Dose: 17 units/kg/hr, 7.634 mls/hr Iron Sucrose 100 mg/ Sodium (Chloride) 105 mls @ 210 mls/hr IVPB ONCE ONE Stop: 11/13/17 10:29 Metoclopramide HCl (Reglan) 5 mg IVP ACHS [facility] Last Admin: 11/12/17 22:03 Dose: 5 mg Pantoprazole Sodium (Protonix Inj) 40 mg IVP Q12 [facility] Last Admin: 11/12/17 21:34 Dose: 40 mg - Labs Labs: 11/12/17 05:45 11/12/17 05:45 PT 12.8 SECONDS (9.4-12.5) H 11/12/17 12:05 INR 1.11 (0.93-1.08) H 11/12/17 12:05 APTT 50.5 Seconds (25.1-36.5) H 11/12/17 18:15 Attending/Attestation - Attestation I have personally seen and examined this patient.: Yes I have fully participated in the care of the patient.: Yes I have reviewed all pertinent clinical information, including history, physical exam and plan: Yes Notes (Text): This is an addendum to GI progress report dictated by Samantha Waldron APN.The patient was seen and examined earlier. Medical records, lab studies, imagings were reviewed. Last 24 hours events reviewed. Agreed with the above treatment plan as outlined in Samantha Waldron APN's notes the with the addition of the following 11/13/17 00:12
--- NOTE | 2017-11-13 01:39 | PN ---
DATE: PULMONARY PROGRESS NOTE REFERRING PHYSICIAN: Meme Rey MD SUBJECTIVE: He is transferred out of ICU, lying in the bed, receiving packed RBCs. No headache, no rhinitis. Appetite is good. No vomiting. No abdominal pain, decreased right leg swelling and erythema. OBJECTIVE: GENERAL: In no acute distress. VITAL SIGNS: Temperature is 98, heart rate 104, respiratory rate is 18, blood pressure 103/65, pulse ox 97% on room air. HEENT: Moist mucous membrane. No ulcer or thrush noted. NECK: Supple. No JVD. LUNGS: Has a fair airflow with rhonchi. HEART: S1, S2. ABDOMEN: Soft, nontender, no organomegaly. EXTREMITIES: Decreased edema of the right leg with ulcer. Decreased erythema. NEUROLOGIC: Awake and follows simple commands. MEDICATIONS: He is on doxycycline 100 mg twice a day, IV heparin weight-based protocol, Protonix 40 mg twice a day, Reglan 5 mg a.c. and at bedtime, vitamin B12 1000 mcg IM daily. LABORATORY DATA: Shows hemoglobin 7.4, hematocrit 23.0, WBC 5.0, platelet is 228. His INR 1.1. PTT is 51. Sodium 129, potassium 4.1, chloride 106, bicarbonate 23, BUN 7, creatinine 0.6, calcium is 7.5, ferritin is 26, AST 21, ALT 32, alk phos is 49. Albumin is 1.5. Microbiology, blood culture has been negative. IMPRESSION AND PLAN: Right leg extensive deep vein thrombosis, cellulitis, pulmonary embolism, bowel obstruction, B12 and iron deficiency anemia, calorie malnourished, multiple small bowel, colon and gastric surgeries, being followed by Gastroenterology, Surgery as well as Hematology, being transfused. We will give iron for a day or 2 after transfusion starting tomorrow. Continue B12, keep head at 45 degrees. Continue supplemental oxygen for now, continue heparin until H and H stabilizes or acceptable level before adding p.o. anticoagulant rather have him on Coumadin. We will speak to Hematology, follow up labs the morning. Thank you and we will follow with you. Eber Ziegler MD
[2017-11-13 06:43] LABS: HEMOGLOBIN 8.5 g/dL (14.0-18.0); MEAN CELL VOLUME 86.8 fl (80.0-105.0); MEAN CORPUSCULAR HGB CONC 32.2 g/dl (31.0-37.0); MEAN PLATELET VOLUME 9.8 fl (7.0-11.0); RBC 3.04 10^6/uL (3.5-6.1); RED CELL DISTRIBUTION WIDTH 15.3 % (11.5-14.5); WHITE BLOOD COUNT 6.6 10^3/ul (4.5-11.0)
[2017-11-13 07:02] LABS: ALB/GLOB RATIO 0.7 (1.1-1.8); ALBUMIN 1.7 g/dL (3.0-4.8); ALT/SGPT 29 U/L (7-56); AST/SGOT 22 U/L (17-59); BLOOD UREA NITROGEN 4 mg/dL (7-21); CALCIUM 7.7 mg/dL (8.4-10.5); GFR AFRICAN-AMERICAN > 60; GFR NON-AFRICAN AMERICAN > 60
--- NOTE | 2017-11-13 09:06 | PN ---
DATE: 11/12/2017 SUBJECTIVE: The patient is a 47-year-old male. The patient is seen and examined on the bedside, looking comfortable. Leg pain is better. No fever. No chills. No hematuria. No hematochezia. Patient is a very poor historian, looks like relaxed. PHYSICAL EXAMINATION: VITAL SIGNS: Temperature 97.8, pulse 89, respiratory rate 18, blood pressure 109/62, pulse oximetry 97. HEENT: Head normocephalic and atraumatic. Eyes, PERRLA. Extraocular muscles intact. Conjunctivae clear. Nose patent. NECK: Supple. No carotid bruits, JVD or thyromegaly. CHEST: Bilaterally symmetrical. ABDOMEN: Soft. Bowel sounds present. No organomegaly. EXTREMITIES: Trace edema. NEUROLOGICAL: Patient is awake and alert. Moving all four extremities. No focal deficits. Obeying simple order. MEDICATIONS: Cyanocobalamin, doxycycline, heparin, iron, metoclopramide, pantoprazole. LABORATORY DATA: White blood cells 5.0, hemoglobin 7.4, hematocrit 23.0, platelets 228. Sodium 129, potassium 4.1, BUN 7, creatinine 8.6, glucose 74. ASSESSMENT AND PLAN: The patient is a 47-year-old male with severe anemia, status post blood transfusion, hyponatremia, severe sepsis due to right leg cellulitis with associated deep venous thrombosis, distal colonic obstruction, gastroesophageal reflux disease, anxiety, history of small bowel obstruction, history of recurrent aspiration pneumonia, history of multiple abdominal surgeries. Plan is continue vancomycin, day #5, completing 7 to 10 days. As the blood cultures are negative, we will continue monitoring clinically as per Infectious Disease. Seen by GI, Samantha Waldron, also - Dr. Davies's nurse practitioner. Patient is on anticoagulation due to deep venous thrombosis and pulmonary embolism. History of anastomosis of the colon, mentally challenged. Patient is started on pureed diet, on heparin drip as protocol, monitoring hemoglobin and hematocrit and gastrointestinal bleeding, on Reglan. Dr. Murillo, cadd drafter, is on the case. As per GI notes, sister said that she does not want colonic dilatation because patient already had multiple bowel surgeries. We will monitor closely. If continued dropping hemoglobin or active gastrointestinal bleeding, consider EGD and flex sig as per GI. History of chronic constipation also. Dr. Murillo gave 2 units of packed red blood cells. No evidence of hemolysis. Patient will get B12 injections also. All consultants, Dr. Davies, Dr. Love, Dr. Murillo, Dr. Peace, Dr. Ziegler's notes were reviewed and agreed. We will follow. Meme Rey MD
--- NOTE | 2017-11-13 10:05 | CP.PCM.PN ---
<Cristina Alford - Last Filed: 11/13/17 10:32> Subjective - Date & Time of Evaluation Date of Evaluation: 11/13/17 Time of Evaluation: 09:30 - Subjective Subjective: Chief complaint: R leg swelling 47 yr male w/ hstory of intellectual disability, anemia, GERD, aspiration pneumonia, multiple abdominal surgeries, perforation of stomach, anxiety, recurrent pneumonia, & chronic constipation. Pt seen at bedside. He is stating that he wishes to eat soft foods now. His leg edema is decreased. Pt is a poor historian due to his mental disability. Denies any fever, chills, chest pain, shortness of breath, abdominal pain, nausea, vomiting or urinary problems. Objective - Vital Signs/Intake and Output Vital Signs (last 24 hours): Temp Pulse Resp BP Pulse Ox 98.3 F 81 20 90/53 L 97 11/13/17 08:14 11/13/17 08:14 11/13/17 08:14 11/13/17 08:14 11/13/17 08:14 Intake and Output: 11/13/17 11/13/17 06:59 18:59 Intake Total 1006 48 Output Total 1900 Balance -894 48 - Medications Medications: Current Medications Cyanocobalamin (Vitamin B12 1000 Mcg/Ml Inj) 1,000 mcg IM DAILY [facility] Last Admin: 11/13/17 09:07 Dose: 1,000 mcg Doxycycline Hyclate (Doryx) 100 mg PO Q12 [facility]AN PRN Reason: Protocol Stop: 11/16/17 22:01 Last Admin: 11/13/17 09:04 Dose: 100 mg Heparin Sodium/Sodium Chloride (Heparin 43777 Units/250ml 1/2 Normal Saline) 25 ,000 units in 250 mls @ 8.083 mls/hr IV .Q24H PRN; Protocol; 18 UNITS/KG/HR PRN Reason: ADJUST RATE PER PROTOCOL Last Titration: 11/13/17 07:29 Dose: 21 units/kg/hr, 9.43 mls/hr Iron Sucrose 100 mg/ Sodium (Chloride) 105 mls @ 210 mls/hr IVPB ONCE ONE Stop: 11/13/17 10:29 Last Admin: 11/13/17 09:06 Dose: 210 mls/hr Metoclopramide HCl (Reglan) 5 mg IVP ACHS [facility] Last Admin: 11/13/17 09:05 Dose: 5 mg Pantoprazole Sodium (Protonix Inj) 40 mg IVP Q12 [facility] Last Admin: 11/13/17 09:04 Dose: 40 mg - Labs Labs: 11/13/17 05:45 11/13/17 05:45 PT 12.8 SECONDS (9.4-12.5) H 11/12/17 12:05 INR 1.11 (0.93-1.08) H 11/12/17 12:05 APTT 35.3 Seconds (25.1-36.5) 11/13/17 05:45 - Constitutional Appears: Chronically Ill - Head Exam Head Exam: ATRAUMATIC, NORMAL INSPECTION, NORMOCEPHALIC - Eye Exam Eye Exam: EOMI, Normal appearance, PERRL Pupil Exam: NORMAL ACCOMODATION, PERRL - ENT Exam ENT Exam: Mucous Membranes Dry - Respiratory Exam Respiratory Exam: Clear to Ausculation Bilateral, NORMAL BREATHING PATTERN - Cardiovascular Exam Cardiovascular Exam: REGULAR RHYTHM, +S1, +S2. absent: Murmur - GI/Abdominal Exam GI & Abdominal Exam: Soft, Normal Bowel Sounds. absent: Tenderness - Exam Additional comments: catheter intact. adequate c/y urine. - Extremities Exam Additional comments: R lower extremity, erythema, edema +1, tenderness. - Neurological Exam Neurological Exam: Alert, Awake, Oriented x3 - Psychiatric Exam Psychiatric exam: Normal Affect, Normal Mood - Skin Skin Exam: Dry, Intact, Pallor, Warm Assessment and Plan (1) Dehydration Status: Acute (2) Mentally disabled Status: Chronic (3) Cellulitis Status: Acute (4) DVT (deep venous thrombosis) Status: Acute (5) Hyponatremia Status: Acute (6) GI bleed Status: Acute (7) Severe anemia Status: Acute (8) Colonic obstruction Status: Acute (9) Pulmonary embolism Status: Acute - Assessment and Plan (Free Text) Plan: s/p 1 unit of PRBC. 2 units ordered. Soft regular diet per GI. Pt & his sister do not want colonic dilation, perhaps EGD/flexsig will be done. IV heparin per protocol. IV vanco. IV protonix. Possible IVC filter placement. Consults: Pulmonary - Dr. Karlie CABEZAS - Dr. Del Rosario IR - Dr. Chloe Easley GI - [facility] Surgery - Dr. Brown Henson Hemo/Onc - Dr. Murillo Reviewed: CXR = WNL R lower ext US = R extensive iliofemoral DVT ECG = NSR CTA chest/abd/pelvis = distal colonic obstruction w/ severe dilation of the proximal colon. the transition point is seen in rectosigmoid. very small bilateral pulmonary emboli CT chest = VQ scan = low probability for pulmonary emboli <Meme Rey - Last Filed: 11/13/17 22:28> Objective - Vital Signs/Intake and Output Vital Signs (last 24 hours): Temp Pulse Resp BP Pulse Ox 97.3 F L 105 H 20 108/70 96 11/13/17 18:51 11/13/17 18:51 11/13/17 18:51 11/13/17 18:51 11/13/17 18:51 Intake and Output: 11/13/17 11/14/17 18:59 06:59 Intake Total 489 660 Output Total 1300 Balance 489 -640 - Medications Medications: Current Medications Cyanocobalamin (Vitamin B12 1000 Mcg/Ml Inj) 1,000 mcg IM DAILY [facility] Last Admin: 11/13/17 09:07 Dose: 1,000 mcg Doxycycline Hyclate (Doryx) 100 mg PO Q12 [facility]AN PRN Reason: Protocol Stop: 11/16/17 22:01 Last Admin: 11/13/17 21:22 Dose: 100 mg Heparin Sodium/Sodium Chloride (Heparin 83082 Units/250ml 1/2 Normal Saline) 25 ,000 units in 250 mls @ 8.083 mls/hr IV .Q24H PRN; Protocol; 18 UNITS/KG/HR PRN Reason: ADJUST RATE PER PROTOCOL Last Admin: 11/13/17 17:12 Dose: 21 units/kg/hr, 9.43 mls/hr Metoclopramide HCl (Reglan) 5 mg IVP ACHS [facility] Last Admin: 11/13/17 21:29 Dose: 5 mg Pantoprazole Sodium (Protonix Inj) 40 mg IVP Q12 [facility] Last Admin: 11/13/17 21:32 Dose: 40 mg - Labs Labs: 11/13/17 05:45 11/13/17 05:45 PT 12.8 SECONDS (9.4-12.5) H 11/12/17 12:05 INR 1.11 (0.93-1.08) H 11/12/17 12:05 APTT 68.9 Seconds (25.1-36.5) H 11/13/17 19:34 Assessment and Plan - Assessment and Plan (Free Text) Plan: 47 yr male w/ hstory of intellectual disability, anemia, GERD, aspiration pneumonia, multiple abdominal surgeries, perforation of stomach, anxiety, recurrent pneumonia, & chronic constipation. Pt seen at bedside. He is stating that he wishes to eat soft foods now. His leg edema is decreased. Pt is a poor historian due to his mental disability. Denies any fever, chills, chest pain, shortness of breath, abdominal pain, nausea, vomiting or urinary problems.pt is seen and examined at bed side , d/d with dr León about green filter and dr Murillo about anemia , and blood transfusion , oob , pt will f/u , agreed all above . will f/u
--- NOTE | 2017-11-13 11:33 | CP.PCM.PCO ---
Physician Communication Note - Physician Communication Note Physician Communication Note: Soc Work to attempt to restore food stamps
--- NOTE | 2017-11-13 12:53 | CP.PCM.PN ---
<Samantha Waldron - Last Filed: 11/13/17 12:53> Subjective - Date & Time of Evaluation Date of Evaluation: 11/13/17 Time of Evaluation: 10:20 - Subjective Subjective: Seen and examined at the bedside earlier today, chart reviewed, patient denies nausea, vomiting, or abdominal pain tolerating pured diet. No reports of overt GI bleed. Having liquid BM. Objective - Vital Signs/Intake and Output Vital Signs (last 24 hours): Temp Pulse Resp BP Pulse Ox 98.3 F 109 H 20 90/53 L 97 11/13/17 08:14 11/13/17 10:00 11/13/17 08:14 11/13/17 08:14 11/13/17 08:14 Intake and Output: 11/13/17 11/13/17 06:59 18:59 Intake Total 1006 48 Output Total 1900 Balance -894 48 - Medications Medications: Current Medications Cyanocobalamin (Vitamin B12 1000 Mcg/Ml Inj) 1,000 mcg IM DAILY [facility] Last Admin: 11/13/17 09:07 Dose: 1,000 mcg Doxycycline Hyclate (Doryx) 100 mg PO Q12 [facility] PRN Reason: Protocol Stop: 11/16/17 22:01 Last Admin: 11/13/17 09:04 Dose: 100 mg Heparin Sodium/Sodium Chloride (Heparin 68921 Units/250ml 1/2 Normal Saline) 25 ,000 units in 250 mls @ 8.083 mls/hr IV .Q24H PRN; Protocol; 18 UNITS/KG/HR PRN Reason: ADJUST RATE PER PROTOCOL Last Titration: 11/13/17 07:29 Dose: 21 units/kg/hr, 9.43 mls/hr Metoclopramide HCl (Reglan) 5 mg IVP ACHS [facility] Last Admin: 11/13/17 09:05 Dose: 5 mg Pantoprazole Sodium (Protonix Inj) 40 mg IVP Q12 [facility] Last Admin: 11/13/17 09:04 Dose: 40 mg - Labs Labs: 11/13/17 05:45 11/13/17 05:45 PT 12.8 SECONDS (9.4-12.5) H 11/12/17 12:05 INR 1.11 (0.93-1.08) H 11/12/17 12:05 APTT 35.3 Seconds (25.1-36.5) 11/13/17 05:45 - Constitutional Appears: No Acute Distress - Head Exam Head Exam: NORMOCEPHALIC - Eye Exam Eye Exam: Normal appearance. absent: Scleral icterus - ENT Exam ENT Exam: Mucous Membranes Moist - Neck Exam Neck Exam: Normal Inspection - Respiratory Exam Respiratory Exam: NORMAL BREATHING PATTERN. absent: Respiratory Distress - Cardiovascular Exam Cardiovascular Exam: +S1, +S2 - GI/Abdominal Exam GI & Abdominal Exam: Soft, Normal Bowel Sounds. absent: Guarding, Tenderness, Rebound - Extremities Exam Extremities Exam: absent: Calf Tenderness Additional comments: right leg erythema with edema, no tenderness - Neurological Exam Neurological Exam: Alert, Awake, Oriented x3 - Skin Skin Exam: Dry, Warm Assessment and Plan - Assessment and Plan (Free Text) Assessment: Assessment: Anemia, decreased hemoglobin on anticoagulant DVT/PE Colonic obstruction, history of recurrent SBO and multiple abdominal surgery H/O anastmotic ulcer Mentally challenged Sepsis/cellulitis lower extremity right Hyponatremia Plan: puree diet On heparin drip as per protocol Monitor H&H and for GI bleed on Reglan Continue GI prophylaxis in IV antibiotics as per ID sister, informed that does not want colonic dilitation, patient have multiple bowel incidents. Will monitor closely, if continued drop in HBG or active GIB, consider EGD/flexsig. Seen and discussed with Dr. Davies <Cristiane Davies V - Last Filed: 11/13/17 22:50> Objective - Vital Signs/Intake and Output Vital Signs (last 24 hours): Temp Pulse Resp BP Pulse Ox 97.3 F L 105 H 20 108/70 96 11/13/17 18:51 11/13/17 18:51 11/13/17 18:51 11/13/17 18:51 11/13/17 18:51 Intake and Output: 11/13/17 11/14/17 18:59 06:59 Intake Total 489 660 Output Total 1300 Balance 489 -640 - Medications Medications: Current Medications Cyanocobalamin (Vitamin B12 1000 Mcg/Ml Inj) 1,000 mcg IM DAILY [facility] Last Admin: 11/13/17 09:07 Dose: 1,000 mcg Doxycycline Hyclate (Doryx) 100 mg PO Q12 [facility] PRN Reason: Protocol Stop: 11/16/17 22:01 Last Admin: 11/13/17 21:22 Dose: 100 mg Heparin Sodium/Sodium Chloride (Heparin 88503 Units/250ml 1/2 Normal Saline) 25 ,000 units in 250 mls @ 8.083 mls/hr IV .Q24H PRN; Protocol; 18 UNITS/KG/HR PRN Reason: ADJUST RATE PER PROTOCOL Last Admin: 11/13/17 17:12 Dose: 21 units/kg/hr, 9.43 mls/hr Metoclopramide HCl (Reglan) 5 mg IVP ACHS [facility] Last Admin: 11/13/17 21:29 Dose: 5 mg Pantoprazole Sodium (Protonix Inj) 40 mg IVP Q12 [facility] Last Admin: 11/13/17 21:32 Dose: 40 mg - Labs Labs: 11/13/17 05:45 11/13/17 05:45 PT 12.8 SECONDS (9.4-12.5) H 11/12/17 12:05 INR 1.11 (0.93-1.08) H 11/12/17 12:05 APTT 68.9 Seconds (25.1-36.5) H 11/13/17 19:34 Attending/Attestation - Attestation I have personally seen and examined this patient.: Yes I have fully participated in the care of the patient.: Yes I have reviewed all pertinent clinical information, including history, physical exam and plan: Yes Notes (Text): This is an addendum to GI progress report dictated by Samantha Waldron APN.The patient was seen and examined earlier. Medical records, lab studies, imagings were reviewed. Last 24 hours events reviewed. Agreed with the above treatment plan as outlined in Samantha Waldron APN's notes the with the addition of the following 11/13/17 22:49
--- NOTE | 2017-11-13 13:52 | CP.PCM.PN ---
Subjective - Date & Time of Evaluation Date of Evaluation: 11/13/17 Time of Evaluation: 11:15 - Subjective Subjective: Right leg feels better, no fevers overnight. Objective - Vital Signs/Intake and Output Vital Signs (last 24 hours): Temp Pulse Resp BP Pulse Ox 98.3 F 81 20 90/53 L 97 11/13/17 08:14 11/13/17 08:14 11/13/17 08:14 11/13/17 08:14 11/13/17 08:14 Intake and Output: 11/13/17 11/13/17 06:59 18:59 Intake Total 1006 48 Output Total 1900 Balance -894 48 - Medications Medications: Current Medications Cyanocobalamin (Vitamin B12 1000 Mcg/Ml Inj) 1,000 mcg IM DAILY [facility] Last Admin: 11/13/17 09:07 Dose: 1,000 mcg Doxycycline Hyclate (Doryx) 100 mg PO Q12 [facility] PRN Reason: Protocol Stop: 11/16/17 22:01 Last Admin: 11/13/17 09:04 Dose: 100 mg Heparin Sodium/Sodium Chloride (Heparin 13305 Units/250ml 1/2 Normal Saline) 25 ,000 units in 250 mls @ 8.083 mls/hr IV .Q24H PRN; Protocol; 18 UNITS/KG/HR PRN Reason: ADJUST RATE PER PROTOCOL Last Titration: 11/13/17 07:29 Dose: 21 units/kg/hr, 9.43 mls/hr Iron Sucrose 100 mg/ Sodium (Chloride) 105 mls @ 210 mls/hr IVPB ONCE ONE Stop: 11/13/17 10:29 Last Admin: 11/13/17 09:06 Dose: 210 mls/hr Metoclopramide HCl (Reglan) 5 mg IVP ACHS [facility] Last Admin: 11/13/17 09:05 Dose: 5 mg Pantoprazole Sodium (Protonix Inj) 40 mg IVP Q12 [facility] Last Admin: 11/13/17 09:04 Dose: 40 mg - Labs Labs: 11/13/17 05:45 11/13/17 05:45 PT 12.8 SECONDS (9.4-12.5) H 11/12/17 12:05 INR 1.11 (0.93-1.08) H 11/12/17 12:05 APTT 35.3 Seconds (25.1-36.5) 11/13/17 05:45 - Constitutional Appears: Chronically Ill - Head Exam Head Exam: NORMAL INSPECTION - ENT Exam ENT Exam: Mucous Membranes Moist - Neck Exam Neck Exam: absent: Meningismus - Respiratory Exam Respiratory Exam: Decreased Breath Sounds - Cardiovascular Exam Cardiovascular Exam: +S1, +S2 - GI/Abdominal Exam GI & Abdominal Exam: Soft. absent: Tenderness - Extremities Exam Additional comments: right leg with decreased swelling Assessment and Plan - Assessment and Plan (Free Text) Plan: Assessment Severe sepsis due to right leg cellulitis with associated DVT distal colonic obstruction GERD chronic anemia anxiety history of SBO history of recurrent pneumonia Plan continue Vancomycin day 6 - complete 7-10 days of therapy; blood cx are negative will continue to monitor clinically
[2017-11-13] MEDS: Heparin25000 units/250ml 1/2NS 25,000 UNITS/250 ML BAG IV PRN (17:12)
--- NOTE | 2017-11-14 00:15 | PN ---
DATE: 11/13/2017 REFERRING PHYSICIAN: Meme Rey MD. SUBJECTIVE: He is lying in the bed, head at 45 degrees. No rhinitis. No cough. No nausea. No vomiting. Still has a right leg swelling and erythema. OBJECTIVE: GENERAL: In no acute distress. VITAL SIGNS: Temperature is 98, heart rate is 105, respiratory rate is 20, blood pressure 108/70, pulse ox 96% on room air. HEENT: Moist mucous membrane on palpation. NECK: Supple. No JVD. LUNGS: Has a fair airflow with rhonchi. HEART: S1, S2. ABDOMEN: Soft, nontender, no organomegaly. EXTREMITIES: Right leg has some edema, still has some erythema. Mild tenderness. NEUROLOGIC: Awake, alert. Follows simple commands. MEDICATIONS: He is on doxycycline 100 mg twice a day, IV based heparin protocol, Protonix 40 mg daily, Reglan 5 mg daily, vitamin B12 1000 mcg IM daily. LABORATORY DATA: Shows hemoglobin 8.5, hematocrit 26.4, WBC is 6.6, platelet is 220. PTT is 70. Sodium 129, potassium 4.1, chloride 106, bicarbonate 25, BUN 4, creatinine 0.6, glucose 84, calcium 7.7, ferritin yesterday was 26, AST 22, ALT 29, alk phos is 49. Albumin is 1.7. IMPRESSION AND PLAN: Right leg extensive deep venous thrombosis with cellulitis, pulmonary embolism, bowel obstruction, B12 deficiency, iron deficiency, hypoalbuminemia, malnourished. Spoke to floor nurse practitioner in the day floor now. Continue heparin. IVC filter is being considered because of high risk of the patient for anticoagulation. We will continue iron supplement. GI has been on board. Surgical team on board. Not a candidate for any endoscopy at this time, especially the patient does have a intestinal obstruction and guaiac positive stool. Continue supportive care for now. Once H&H is stable and is not trending down, we will try to convert to oral anticoagulant. Followup CBC in the morning. We will follow with you. Eber Ziegler MD
[2017-11-14 07:23] LABS: HEMOGLOBIN 9.5 g/dL (14.0-18.0); MEAN CELL VOLUME 86.6 fl (80.0-105.0); MEAN CORPUSCULAR HEMOGLOBIN 28.2 pg (25.0-35.0); MEAN CORPUSCULAR HGB CONC 32.5 g/dl (31.0-37.0); MEAN PLATELET VOLUME 9.5 fl (7.0-11.0); RBC 3.37 10^6/uL (3.5-6.1); RED CELL DISTRIBUTION WIDTH 16.2 % (11.5-14.5); WHITE BLOOD COUNT 7.2 10^3/ul (4.5-11.0)
[2017-11-14 07:28] LABS: ALB/GLOB RATIO 0.7 (1.1-1.8); ALBUMIN 1.7 g/dL (3.0-4.8); ALT/SGPT 29 U/L (7-56); AST/SGOT 21 U/L (17-59); BLOOD UREA NITROGEN 4 mg/dL (7-21); CALCIUM 7.9 mg/dL (8.4-10.5); GFR AFRICAN-AMERICAN > 60; GFR NON-AFRICAN AMERICAN > 60
[2017-11-14] MEDS: Heparin25000 units/250ml 1/2NS 25,000 UNITS/250 ML BAG IV PRN (17:08)
--- NOTE | 2017-11-14 20:28 | PN ---
DATE: 11/14/2017 SUBJECTIVE: He is comfortable in bed, in no acute distress. No abdominal pain. No nausea. No vomiting. No fever. Hemoglobin and hematocrit have been stable today. He received 2 units of blood transfusion yesterday. REVIEW OF SYSTEMS: As per HPI. Rest of 12-point review of systems reviewed negative. MEDICATIONS: B12 of 1 mg daily, doxycycline 100 mg p.o. q. 12, folic acid 1 mg daily, heparin drip, Reglan p.r.n., Protonix 40 mg IV q. 12 hours. PHYSICAL EXAMINATION GENERAL: Comfortable in bed, no acute distress. VITAL SIGNS: Temperature 98.2, heart rate 94 per minute, blood pressure 90/50, respiratory rate 20 per minute, oxygen saturation 96% on room air. HEENT: Pallor positive. NECK: No lymphadenopathy. CHEST: Air entry present and equal bilaterally. No added sounds. CARDIOVASCULAR: S1 and S2 normal. No murmur. No gallop. ABDOMEN: Soft, nontender, no hepatosplenomegaly. EXTREMITIES: Right leg erythema and swelling decreased. It is asphalt heater tender. CENTRAL NERVOUS SYSTEM: Alert and oriented x3. No focal sensory or motor deficit. SPINE: Nontender. LABORATORY DATA: White count 7.2, hemoglobin hematocrit 29.2, platelet 216. Sodium 134, potassium 3.6, creatinine 0.5, calcium 7.9, iron 17, iron saturation 11%. B12 of 295, folic acid 7.6. ASSESSMENT: 1. Deep venous thrombosis right leg, bilateral pulmonary embolism. 2. Anemia. 3. B12 deficiency. 4. Mentally challenged. 5. Distal colonic obstruction. PLAN: He is currently on heparin drip. We will continue heparin drip. We will monitor CBC closely. It has been stable right now. Does not require blood transfusion. B12 of 1 mg daily during hospitalization. Thank you Dr. Rey for allowing us to participate in his care. Candace Murillo MD
--- NOTE | 2017-11-14 23:33 | PN ---
DATE: SUBJECTIVE: The patient is a 47-year-old male. The patient is seen and examined on the bedside, looking comfortable, eating very well, no nausea or vomiting. No hematuria. No hematochezia. No swelling of the legs. No chest pain or palpitation. PHYSICAL EXAMINATION: VITAL SIGNS: Temperature 98.1, pulse 75, blood pressure 92/63, respiratory rate 20. HEENT: Head normocephalic and atraumatic. Eyes, PERRLA. Extraocular muscles intact. Conjunctivae clear. Nose patent. NECK: Supple. No carotid bruits or thyromegaly. CHEST: Bilaterally symmetrical. HEART: S1, S2, positive. LUNGS: Clear to auscultation. ABDOMEN: Soft. Bowel sounds present. No organomegaly. EXTREMITIES: No cyanosis, moving all 4 extremities. NEUROLOGICAL: Patient is oriented x2 at this moment, but awake and alert. MEDICATIONS: Doxycycline, heparin, Protonix, Reglan, cyanocobalamin. LABORATORY DATA: White blood cells 7.3, hemoglobin 9.5, hematocrit 29.2, platelets 216. Sodium 134, potassium 3.6, BUN 4, creatinine 0.5, calcium 7.9. ASSESSMENT AND PLAN: Mr Leila Estrada is a 47-year-old male with; 1. Severe anemia, status post blood transfusion and iron infusion, history of hyponatremia, hypocalcemia, iron deficiency, right leg extensive deep vein thrombosis with cellulitis, pulmonary embolism, bowel obstruction, B12 deficiency, hypoalbuminemia, malnutrition. Discussion done with the consultants, getting heparin. IVC filter is being considered on Thursday or Thursday. Will repeat hemoglobin and hematocrit, physical therapy, getting antibiotics from Dr. Love or Umer. 2. Severe sepsis, distal chronic obstruction and GERD, anxiety, history of small bowel obstruction, history of recurrent aspiration pneumonia. Continue vancomycin, today is day six of seven to 10 days. Blood cultures are negative. I reviewed Dr Ziegler, Dr Love and Dr. Samantha Waldron' notes. 3. History of multiple abdominal surgeries. 4. History of anastomotic ulcers. 5. Mentally challenged, eating pureed diet. We will transfer the patient to Transitional Care Unit. We will follow up. Meme Rey MD MTDVíctor
--- NOTE | 2017-11-15 01:46 | PN ---
DATE:11/14/2017 SUBJECTIVE: This patient was seen and evaluated earlier. Patient is comfortable, tolerating the pureed diet. PHYSICAL EXAMINATION: VITAL SIGNS: Temperature is 98.2, pulse 84, blood pressure is 90/56, respirations 19, O2 saturation 96. HEENT: Atraumatic, anicteric. NECK: Supple. HEART: S1 and S2 heard. LUNGS: Bilateral air entry present. ABDOMEN: Soft. Multiple scars present. EXTREMITIES: Has right leg, some edema and erythema present. NEUROLOGIC: Alert. Moves all the extremities. LABORATORY DATA: Hemoglobin remains stable, 9.5; hematocrit 29.2, WBC 7.2, platelets 216. Chemistry essentially otherwise unremarkable. IMPRESSION: 1. This is a 47-year-old patient, mentally challenged, admitted with cellulitis and right leg deep venous thrombosis and bilateral pulmonary embolism, has been on anticoagulation and heparin. Noticed to have a drop in hemoglobin, now appears to be stable. Patient had been transfused 2 units of packed red blood cells. 2. Patient also was found to have small bowel distention and possible obstruction at the anastomosis level. Now, patient is moving his bowels. Abdomen soft. Tolerating the diet. 3. 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 In view of the patient not actively bleeding and moving his bowels and with no obstructive symptoms, no plan for immediate open flexible sigmoidoscopy is considered now. No plans. 4. Patient also has subtotal gastrectomy with gastroenterostomy, has a history of gastric outlet obstruction, history of ulcerations, bleeding before. Patient has ileus pattern, has been on intermittent courses of metronidazole. 5. Patient has a history of intermittent ileus and motility problems, has been on intermittent courses of Reglan. Other comorbidities include malnutrition, B12 deficiency. Patient's inferior vena cava filter is being considered in view of the high risk for long-time anticoagulation in the setting of the anastomosis and history of anastomotic ulcerations in the past. 6. Patient would continue the proton pump inhibitor and close followup of the hemoglobin and hematocrit. Patient has a recent pulmonary embolism, deep venous thrombosis. Since there is no active bleeding, endoscopic evaluation and colonoscopy is not being considered now. This can be considered if needed based on the clinical course. Thank you very much for allowing us to participate in the care of your patient. Cristiane Davies MD [facility] # [id number] [facility]
--- NOTE | 2017-11-15 03:29 | PN ---
DATE: 11/14/2017 REFERRING PHYSICIAN: Meme Rey MD SUBJECTIVE: The patient is lying in the bed. Purchasing Officer is at bedside. Night was unremarkable. Has a good appetite. No cough, no sputum production. No nausea, no vomiting. Does have a frequent bowel movement. Right leg has still some swelling and erythema. PHYSICAL EXAMINATION: GENERAL: In no acute distress. VITAL SIGNS: Temp is 98, heart rate is 84, respiratory rate is 20, blood pressure 90/56, pulse ox 96% on room air. HEENT: Moist mucous membrane. Small oral cavity. NECK: Supple. No JVD. LUNGS: Has a fair airflow with rhonchi. HEART: S1, S2. ABDOMEN: Soft, nontender. No organomegaly. EXTREMITIES: There is a right leg edema, swelling, erythema. NEUROLOGICAL: Awake, alert. Follow simple commands. MEDICATIONS: He is on doxycycline 100 mg twice a day, folic acid 1 mg daily, heparin weight-based protocol, Protonix 40 mg daily, Reglan 5 mg a.c. and at bedtime, vitamin B12 1000 mcg daily. LABORATORY DATA: Shows hemoglobin 9.5, hematocrit 29.2, WBC 7.2, platelet is 216. PTT is 55. Sodium 134, potassium 3.6, chloride 107, bicarbonate 25, BUN 4, creatinine 0.5, calcium is 7.9. AST 21, ALT 29, alk phos is 45, albumin is 1.7. MICROBIOLOGY: Blood culture, urine culture, stool, there is no growth. IMPRESSION AND PLAN: Right leg extensive deep vein thrombosis with cellulitis, pulmonary embolism, history of bowel obstruction, B12 deficiency, iron deficiency, hypoalbuminemia, malnourished. Spoke to nursing staff. Continue anticoagulation. Follow H and H closely. On Reglan. Elevate right lower extremity. ____ p.o. diet. Follow up H and H. We will follow with you. Eber Ziegler MD
[2017-11-15 07:46] LABS: HEMOGLOBIN 9.5 g/dL (14.0-18.0); MEAN CELL VOLUME 87.8 fl (80.0-105.0); MEAN CORPUSCULAR HEMOGLOBIN 28.2 pg (25.0-35.0); MEAN CORPUSCULAR HGB CONC 32.1 g/dl (31.0-37.0); MEAN PLATELET VOLUME 9.6 fl (7.0-11.0); RBC 3.37 10^6/uL (3.5-6.1); RED CELL DISTRIBUTION WIDTH 16.5 % (11.5-14.5); WHITE BLOOD COUNT 7.5 10^3/ul (4.5-11.0)
[2017-11-15 08:05] LABS: BLOOD UREA NITROGEN 6 mg/dL (7-21); CALCIUM 8.2 mg/dL (8.4-10.5); GFR AFRICAN-AMERICAN > 60; GFR NON-AFRICAN AMERICAN > 60
--- NOTE | 2017-11-15 08:16 | CP.PCM.PCO ---
Physician Communication Note - Physician Communication Note Physician Communication Note: Bala:remove face CA/IVC Filter
[2017-11-15] MEDS: Heparin25000 units/250ml 1/2NS 25,000 UNITS/250 ML BAG IV PRN ×2 (09:07→14:26)
[2017-11-15 09:55] LABS: INR 1.05 (0.93-1.08); PROTHROMBIN TIME 12.1 SECONDS (9.4-12.5)
--- NOTE | 2017-11-15 10:41 | PN ---
DATE: 11/14/2017 SUBJECTIVE: Patient is in bed, in no acute distress, was seen earlier today, 360, bed 1. PHYSICAL EXAMINATION: VITAL SIGNS: With a temperature of 98, blood pressure is 90/50, respiratory rate of 16. HEENT: Examination is unremarkable. NECK: Supple. LUNGS: Have decreased breath sounds. HEART: Normal S1 and S2. ABDOMEN: Soft. DATA: Laboratory examination reveals a white count of 7.2, hemoglobin 9, platelets of 216,000. BUN of 4, creatinine of 0.5. Procalcitonin is 0.74 and stool for occult blood is positive. ____ is noted. Vancomycin trough obtained. Serology is noted. HIV is negative. Review of orders reveal the patient to be on p.o. doxycycline. ASSESSMENT AND PLAN: This is a 47-year-old with severe sepsis ____ right leg cellulitis associated with deep venous thrombosis, on p.o. doxycycline, we will discontinue a few more days of doxycycline. Antwan Del Rosario MD
--- NOTE | 2017-11-15 15:52 | PN ---
DATE: 11/15/2017 FOLLOWUP NOTE SUBJECTIVE: He is comfortable in bed, in no acute distress. Leg pain has decreased. No abdominal pain. No nausea. No vomiting. No bleeding from any site. He has multiple comorbidities including anastomosis, also chronic GI bleed. He is status post 2 units of blood transfusion. Hemoglobin and hematocrit stable. REVIEW OF SYSTEMS: As per HPI. Rest of 12-point review of systems reviewed negative. PHYSICAL EXAMINATION: GENERAL: Comfortable in bed, no acute distress. VITAL SIGNS: Temperature 98.7, heart rate is 90 per minute, blood pressure 100/60, respiratory rate 20 per minute, oxygen saturation 98% on room air. HEENT: Pallor positive. NECK: No lymphadenopathy. CHEST: Air entry present and equal bilaterally. No added sounds. CARDIOVASCULAR: S1 and S2 normal. No murmur. No gallop. ABDOMEN: Soft, nontender. No hepatosplenomegaly. EXTREMITIES: No edema. SPINE: Nontender. FOLDED CLOTH TAPER: Alert and oriented x3. No focal sensory motor deficits. LABORATORY DATA: White count 7.5, hemoglobin 9.5, hematocrit 29.6, platelet 238. Sodium 133, potassium 3.9, creatinine 0.5. B12 of 295. MEDICATIONS: B12 of 1 mg daily IM, doxycycline 100 mg p.o. daily, folic acid 1 mg daily, heparin drip, Reglan, Protonix 40 mg IV q. 12. ASSESSMENT AND PLAN: 1. Severe iron-deficiency anemia. 2. B12 deficiency. 3. Deep vein thrombosis, right leg. 4. Bilateral pulmonary embolism. 5. Mentally challenged. 6. Distal colonic obstruction - resolved. 7. Status post partial gastrectomy, ulceration and bleeding from the anastomosis. PLAN: He is currently on heparin drip. No active bleeding right now. Hemoglobin and hematocrit have been stable. Please schedule for IVC filter placement tomorrow because of DVT and pulmonary embolism, anticoagulation long-term might be a problem because of active GI bleeding and multiple comorbid conditions. Right leg has improved swelling and erythema has decreased. We will transition to Eliquis 5 mg p.o. b.i.d. after IVC filter placement. He will be at increased risk of bleeding. B12 deficiency, currently on IM B12, we will give it for 7 days and then once a month. Oral B12 can be tried 1 mg with folic acid 1 mg daily upon discharge from the hospital. Severe iron deficiency, he received several units of blood transfusion during hospitalization and IV iron. Hemoglobin and hematocrit stable at 9.5 g/dL. Candace Murillo MD
--- NOTE | 2017-11-15 21:33 | PN ---
DATE: 11/15/2017 SUBJECTIVE: Patient is in bed, in no acute distress, was seen earlier this morning in room 360. PHYSICAL EXAMINATION: VITAL SIGNS: Temperature of 98, blood pressure is 88/50, respiratory rate of 18, heart rate of 75. HEENT: Unremarkable. NECK: Supple. LUNGS: Have decreased breath sounds. HEART: Normal S1 and S2. ABDOMEN: Soft, nontender. DATA: Laboratory examination reveals a white count of 7.5, hemoglobin of 9.5, platelets of 235. Chemistries reveal a BUN of 6, creatinine of 0.5. Cultures are reviewed. ASSESSMENT AND PLAN: This is a 47-year-old male with severe sepsis with a right leg cellulitis associated with deep venous thrombosis. The leg is completely resolved. We will discontinue the doxycycline. No further antibiotics needed. Antwan Del Rosario MD
--- NOTE | 2017-11-15 22:31 | PN ---
DATE: SUBJECTIVE: Patient is 47-year-old male. Patient is seen and examined at the bedside. Looking comfortable. Eating his breakfast, hungry, tolerating food very well. No nausea, vomiting, diarrhea. No hematuria or hematochezia. No more bleeding. Hemoglobin is stable. There is a lesion on the right cheek. Dr. Peace is in follow up of on that. Need IVC filter, maybe Thursday or Thursday, Dr. León will do that. PHYSICAL EXAMINATION: VITAL SIGNS: Temperature 98.7, heart rate 100, blood pressure 100/60, respiratory rate 18 , oxygen saturation 98% on room air. HEENT: Head normocephalic, atraumatic. Eyes: PERRLA. Extraocular muscles are intact. Conjunctivae clear. Nose patent. Mucous membranes are moist. NECK: Supple. No carotid bruits, JVD or thyromegaly. CHEST: Bilaterally symmetrical. HEART: S1, S2 positive. LUNGS: Clear to auscultation. ABDOMEN: Soft. Bowel sounds present. No organomegaly. EXTREMITIES: No edema. No cyanosis. NEUROLOGIC: The patient is awake and alert. Moving all four extremities. No focal deficits. LABORATORY DATA: White blood cells 7.5, hemoglobin 9.5, hematocrit 29.6, platelets 238. Sodium 133, potassium 3.9, creatinine 0.5, B12 of 295. MEDICATIONS: B12, doxycycline, folic acid, heparin drip, Reglan, Protonix. ASSESSMENT AND PLAN: Mr. Sean Dee is a 47-year-old male with severe iron-deficiency anemia, status post blood transfusion, [id number] B12 deficiency, iron deficiency, deep vein thrombosis of the right leg, cellulitis of the right leg. He is on heparin drip, getting intravenous antibiotics, planning is inferior vena cava filter on Thursday or Thursday, bilateral pulmonary emboli, lesion on the cheek, rule out malignancy, mentally challenged, distal colonic obstruction resolved, status post partial gastrectomy, ulcerations, bleeding from the anastomosis, multiple abdominal surgeries. Patient is on heparin drip. No active bleeding right now. Plan is to convert it into p.o. blood thinner, waiting for the inferior vena cava filter. Gastroenterology is on the case also. Long-term blood thinner may be problem because of patient's comorbidity. According to Hematology, we have prescribed Eliquis as soon as filter is done. Patient is getting iron, B12, and antibiotics. Gastrointestinal and deep venous thrombosis prophylaxis. Repeat labs. We will follow up. Meme Rey MD K[facility]
--- NOTE | 2017-11-16 00:18 | CP.PCM.PN ---
Subjective - Date & Time of Evaluation Date of Evaluation: 11/15/17 Time of Evaluation: 13:00 - Subjective Subjective: patient is tolerating diet no episodes of melena or bleeding per rectum no vomiting no complaints of any abdominal pain Objective - Vital Signs/Intake and Output Vital Signs (last 24 hours): Temp Pulse Resp BP Pulse Ox 98.7 F 88 20 93/57 L 95 11/15/17 16:45 11/15/17 22:00 11/15/17 16:45 11/15/17 16:45 11/15/17 16:45 Intake and Output: 11/15/17 11/16/17 18:59 06:59 Intake Total 400 600 Output Total 1400 Balance 400 -800 - Medications Medications: Current Medications Cyanocobalamin (Vitamin B12 1000 Mcg/Ml Inj) 1,000 mcg IM DAILY [facility] Last Admin: 11/15/17 10:52 Dose: 1,000 mcg Folic Acid (Folic Acid) 1 mg PO DAILY [facility] Last Admin: 11/15/17 10:51 Dose: 1 mg Heparin Sodium/Sodium Chloride (Heparin 49469 Units/250ml 1/2 Normal Saline) 25 ,000 units in 250 mls @ 8.083 mls/hr IV .Q24H PRN; Protocol; 18 UNITS/KG/HR PRN Reason: ADJUST RATE PER PROTOCOL Last Admin: 11/15/17 14:26 Dose: 30.73 units/kg/hr, 13.8 mls/hr Metoclopramide HCl (Reglan) 5 mg IVP ACHS [facility] Last Admin: 11/15/17 21:48 Dose: 5 mg Pantoprazole Sodium (Protonix Inj) 40 mg IVP Q12 [facility] Last Admin: 11/15/17 21:45 Dose: 40 mg - Labs Labs: 11/15/17 07:00 11/15/17 07:00 PT 12.1 SECONDS (9.4-12.5) 11/15/17 09:26 INR 1.05 (0.93-1.08) 11/15/17 09:26 APTT 62.1 Seconds (25.1-36.5) H 11/15/17 21:30 - Constitutional Appears: No Acute Distress - Head Exam Head Exam: ATRAUMATIC, NORMOCEPHALIC - Eye Exam Eye Exam: EOMI, PERRL. absent: Scleral icterus - ENT Exam ENT Exam: Mucous Membranes Moist - Neck Exam Neck Exam: Full ROM. absent: Lymphadenopathy - Respiratory Exam Respiratory Exam: Clear to Ausculation Bilateral, NORMAL BREATHING PATTERN - Cardiovascular Exam Cardiovascular Exam: REGULAR RHYTHM, +S1, +S2. absent: JVD - GI/Abdominal Exam GI & Abdominal Exam: Soft, Normal Bowel Sounds. absent: Tenderness - Extremities Exam Extremities Exam: Calf Tenderness Additional comments: right leg erythema present. Pedal edema. Leg swelling appears less prominent - Neurological Exam Neurological Exam: Alert, Awake, Oriented x3 Assessment and Plan - Assessment and Plan (Free Text) Assessment: 1. This 47-year-old patient with mentally challenged admitted with cellulitis, right leg DVT and pulmonary embolism. Patient has been on anticoagulation appearing hemoglobin appears stable. Status post transfusion of 2 units of packed RBC. 2. History of small bowel distention possible obstruction at the anastomosis level patient has history of breast stricture of the area of colocolic anastomosis at sigmoid level status post a subtotal colectomy patient has been moving his bowels. History of anastomotic stricture dilations in the past 3. History of gastric outlet obstruction gastroparesis before status post a subtotal gastrectomy with the gastroenterostomy. Since on pured diet and also Reglan tolerating on empiric PPI therapy. Last endoscopy done in 2016 did not reveal any ulcerations 4. Patient is in regular rate recommend to slowly taper the dose and use it on a when necessary basis on short courses Plan: 1. Follow-up on the hemoglobin hematocrit 2. Continue PPI 3.If the hemoglobin remains stable we will consider would recommend changing to Coumadin If the patient's hemoglobin drops further would need a flexible sigmoidoscopy to evaluate the anastomotic area and also EGD patient's family is at the moment N unless patient needs it on an emergent basis 4.History of cellulitis patient was on doxycycline which as been discontinued by ID Thank you very much for allowing us to birds. In the care of the patient
--- NOTE | 2017-11-16 00:20 | PN ---
PULMONARY PROGRESS NOTE DATE: 11/15/2017 REFERRING PHYSICIAN: Dr. Rey. SUBJECTIVE: Patient is lying in the bed, head at 45 degrees. Night was unremarkable. No headache. No rhinitis. No nausea. No vomiting. Still has leg pain and swelling. OBJECTIVE: GENERAL: In no acute distress. VITAL SIGNS: Temperature is 98, heart rate is 86, respiratory rate is 20, blood pressure 93/57, pulse ox 95%on room air. HEENT: Moist mucous membranes. No ulcer or thrush noted. NECK: Supple. No JVD. LUNGS: Has a fair flow with rhonchi. HEART: S1 and S2. ABDOMEN: Soft and nontender. No organomegaly. EXTREMITIES: Right leg has some swelling and erythema. NEUROLOGIC: Awake, alert. Follows simple commands. MEDICATIONS: He is on folic acid 1 mg daily, heparin weight-based protocol, Protonix 40 mg daily, Reglan 5 mg a.c. and at bedtime, vitamin B12 at 1000 mcg IM daily. LABORATORY DATA: Shows hemoglobin 9.7, hematocrit 29.6, WBC 7.5, platelets is 238. PTT is 58. Sodium 133, potassium 3.9, chloride is 105, bicarbonate is 24, BUN 6, creatinine 0.5, glucose 69, calcium is 8.2. AST is 21, ALT 29, alk phos is 45, albumin is 1.7. Stool occult blood is positive. IMPRESSION AND PLAN: Right leg extensive deep vein thrombosis with cellulitis, pulmonary embolism, history of bowel obstruction, B12 deficiency, iron deficiency, hypoalbuminemia, malnourished. Pulmonary point of view, he is doing okay. Continue intravenous heparin. Elevate right lower extremity. If hemoglobin and hematocrit is stable by tomorrow, may consider starting Coumadin if okay with Hematology. Keep right lower extremity elevated. Thank you, and we will follow with you. Eber Ziegler MD
[2017-11-16 06:33] LABS: HEMOGLOBIN 9.4 g/dL (14.0-18.0); MEAN CELL VOLUME 89.2 fl (80.0-105.0); MEAN CORPUSCULAR HEMOGLOBIN 28.3 pg (25.0-35.0); MEAN CORPUSCULAR HGB CONC 31.8 g/dl (31.0-37.0); MEAN PLATELET VOLUME 9.6 fl (7.0-11.0); RBC 3.32 10^6/uL (3.5-6.1); RED CELL DISTRIBUTION WIDTH 17.1 % (11.5-14.5); WHITE BLOOD COUNT 7.5 10^3/ul (4.5-11.0)
[2017-11-16] MEDS: Heparin25000 units/250ml 1/2NS 25,000 UNITS/250 ML BAG IV PRN (11:14)
--- NOTE | 2017-11-16 12:19 | CP.PCM.PN ---
<Cristina Alford - Last Filed: 11/16/17 12:16> Subjective - Date & Time of Evaluation Date of Evaluation: 11/16/17 Time of Evaluation: 10:40 - Subjective Subjective: Chief complaint: R leg swelling 47 yr male w/ history of intellectual disability, anemia, GERD, aspiration pneumonia, multiple abdominal surgeries, perforation of stomach, anxiety, recurrent pneumonia, & chronic constipation. Pt seen at bedside. His leg edema is decreased. Eliquis 5mg q BID will be started after IVC filter placement per Hemo/Onc vs. coumadin per Pulm & GI. Pt is a poor historian due to his mental disability. Denies any fever, chills, chest pain, shortness of breath, abdominal pain, nausea, vomiting or urinary problems. Objective - Vital Signs/Intake and Output Vital Signs (last 24 hours): Temp Pulse Resp BP Pulse Ox 98.2 F 77 20 97/63 L 100 11/16/17 08:02 11/16/17 08:02 11/16/17 08:02 11/16/17 08:02 11/16/17 08:02 Intake and Output: 11/16/17 11/16/17 06:59 18:59 Intake Total 600 250 Output Total 2300 Balance -1700 250 - Medications Medications: Current Medications Cyanocobalamin (Vitamin B12 1000 Mcg/Ml Inj) 1,000 mcg IM DAILY [facility] Last Admin: 11/16/17 09:10 Dose: 1,000 mcg Folic Acid (Folic Acid) 1 mg PO DAILY [facility] Last Admin: 11/16/17 09:12 Dose: 1 mg Heparin Sodium/Sodium Chloride (Heparin 96092 Units/250ml 1/2 Normal Saline) 25 ,000 units in 250 mls @ 8.083 mls/hr IV .Q24H PRN; Protocol; 18 UNITS/KG/HR PRN Reason: ADJUST RATE PER PROTOCOL Last Admin: 11/16/17 11:14 Dose: 30.73 units/kg/hr, 13.8 mls/hr Metoclopramide HCl (Reglan) 5 mg IVP ACHS [facility] Last Admin: 11/16/17 08:27 Dose: 5 mg Pantoprazole Sodium (Protonix Inj) 40 mg IVP Q12 [facility] Last Admin: 11/16/17 09:11 Dose: 40 mg - Labs Labs: 11/16/17 05:45 11/15/17 07:00 PT 12.1 SECONDS (9.4-12.5) 11/15/17 09:26 INR 1.05 (0.93-1.08) 11/15/17 09:26 APTT 51.3 Seconds (25.1-36.5) H 11/16/17 05:45 - Constitutional Appears: Chronically Ill - Head Exam Head Exam: ATRAUMATIC, NORMAL INSPECTION, NORMOCEPHALIC - Eye Exam Eye Exam: EOMI, Normal appearance, PERRL Pupil Exam: NORMAL ACCOMODATION, PERRL - ENT Exam ENT Exam: Mucous Membranes Moist, Normal Exam - Neck Exam Neck Exam: Full ROM, Normal Inspection. absent: Lymphadenopathy - Respiratory Exam Respiratory Exam: Clear to Ausculation Bilateral, NORMAL BREATHING PATTERN - Cardiovascular Exam Cardiovascular Exam: REGULAR RHYTHM, +S1, +S2. absent: Murmur - GI/Abdominal Exam GI & Abdominal Exam: Soft, Normal Bowel Sounds. absent: Tenderness - Exam Additional comments: catheter intact. adequate c/y urine. - Extremities Exam Additional comments: R lower extremity, erythema, edema +1, tenderness. - Neurological Exam Neurological Exam: Alert, Awake - Psychiatric Exam Psychiatric exam: Normal Affect, Normal Mood - Skin Skin Exam: Dry, Pallor, Warm Assessment and Plan (1) Dehydration Status: Acute (2) Mentally disabled Status: Chronic (3) Cellulitis Status: Acute (4) DVT (deep venous thrombosis) Status: Acute (5) Hyponatremia Status: Acute (6) GI bleed Status: Acute (7) Severe anemia Status: Acute (8) Colonic obstruction Status: Acute (9) Pulmonary embolism Status: Acute - Assessment and Plan (Free Text) Plan: s/p 2 unit of PRBC. Soft/Pureed diet per GI. s/p abx. Pt & his sister do not want colonic dilation, EGD/flexsig? IV heparin per protocol. Vit B12 IM, PO folic acid. IV protonix. Possible IVC filter placement. PT on board. Consults: Pulmonary - Dr. Ziegler ID - Dr. Del Rosario IR - Dr. Chloe Easley GI - Dr. Davies Surgery - Dr. Brown Henson Hemo/Onc - Dr. Murillo Reviewed: CXR = WNL R lower ext US = R extensive iliofemoral DVT ECG = NSR CTA chest/abd/pelvis = distal colonic obstruction w/ severe dilation of the proximal colon. the transition point is seen in rectosigmoid. very small bilateral pulmonary emboli CT chest = VQ scan = low probability for pulmonary emboli <Meme Rey - Last Filed: 11/16/17 18:48> Objective - Vital Signs/Intake and Output Vital Signs (last 24 hours): Temp Pulse Resp BP Pulse Ox 98.1 F 100 H 19 111/70 96 11/16/17 16:00 11/16/17 16:00 11/16/17 16:00 11/16/17 16:00 11/16/17 16:00 Intake and Output: 11/16/17 11/16/17 06:59 18:59 Intake Total 600 250 Output Total 2300 Balance -1700 250 - Medications Medications: Current Medications Cyanocobalamin (Vitamin B12 1000 Mcg/Ml Inj) 1,000 mcg IM DAILY [facility] Last Admin: 11/16/17 09:10 Dose: 1,000 mcg Folic Acid (Folic Acid) 1 mg PO DAILY [facility] Last Admin: 11/16/17 09:12 Dose: 1 mg Heparin Sodium/Sodium Chloride (Heparin 45175 Units/250ml 1/2 Normal Saline) 25 ,000 units in 250 mls @ 8.083 mls/hr IV .Q24H PRN; Protocol; 18 UNITS/KG/HR PRN Reason: ADJUST RATE PER PROTOCOL Last Admin: 11/16/17 11:14 Dose: 30.73 units/kg/hr, 13.8 mls/hr Metoclopramide HCl (Reglan) 5 mg IVP ACHS [facility] Last Admin: 11/16/17 16:58 Dose: 5 mg Mupirocin (Bactroban Ointment) 0 gm TOP BID [facility] Pantoprazole Sodium (Protonix Inj) 40 mg IVP Q12 [facility] Last Admin: 11/16/17 09:11 Dose: 40 mg - Labs Labs: 11/16/17 05:45 11/15/17 07:00 PT 12.1 SECONDS (9.4-12.5) 11/15/17 09:26 INR 1.05 (0.93-1.08) 11/15/17 09:26 APTT 51.3 Seconds (25.1-36.5) H 11/16/17 05:45 Assessment and Plan - Assessment and Plan (Free Text) Plan: 47 yr male w/ history of intellectual disability, anemia, GERD, aspiration pneumonia, multiple abdominal surgeries, perforation of stomach, anxiety, recurrent pneumonia, & chronic constipation. Pt seen at bedside. His leg edema is decreased. Eliquis 5mg q BID will be started after IVC filter placement per Hemo/Onc vs. coumadin per Pulm & GI. Pt is a poor historian due to his mental disability. Denies any fever, chills, chest pain, shortness of breath, abdominal pain, nausea, vomiting or urinary problems.pt is seen and examined at bed side . looking comfortable , no change of status , cont, same treatment , will f/u
--- NOTE | 2017-11-16 12:32 | CP.PCM.PN ---
Subjective - Date & Time of Evaluation Date of Evaluation: 11/16/17 Time of Evaluation: 10:35 - Subjective Subjective: Comfortable in bed, has weeping in the right leg lower posterior portion, but overall the leg feels better. No fevers overnight. Objective - Vital Signs/Intake and Output Vital Signs (last 24 hours): Temp Pulse Resp BP Pulse Ox 98.2 F 77 20 97/63 L 100 11/16/17 08:02 11/16/17 08:02 11/16/17 08:02 11/16/17 08:02 11/16/17 08:02 Intake and Output: 11/16/17 11/16/17 06:59 18:59 Intake Total 600 Output Total 2300 Balance -1700 - Medications Medications: Current Medications Cyanocobalamin (Vitamin B12 1000 Mcg/Ml Inj) 1,000 mcg IM DAILY [facility] Last Admin: 11/16/17 09:10 Dose: 1,000 mcg Folic Acid (Folic Acid) 1 mg PO DAILY [facility] Last Admin: 11/16/17 09:12 Dose: 1 mg Heparin Sodium/Sodium Chloride (Heparin 45611 Units/250ml 1/2 Normal Saline) 25 ,000 units in 250 mls @ 8.083 mls/hr IV .Q24H PRN; Protocol; 18 UNITS/KG/HR PRN Reason: ADJUST RATE PER PROTOCOL Last Admin: 11/15/17 14:26 Dose: 30.73 units/kg/hr, 13.8 mls/hr Metoclopramide HCl (Reglan) 5 mg IVP ACHS [facility] Last Admin: 11/16/17 08:27 Dose: 5 mg Pantoprazole Sodium (Protonix Inj) 40 mg IVP Q12 [facility] Last Admin: 11/16/17 09:11 Dose: 40 mg - Labs Labs: 11/16/17 05:45 11/15/17 07:00 PT 12.1 SECONDS (9.4-12.5) 11/15/17 09:26 INR 1.05 (0.93-1.08) 11/15/17 09:26 APTT 51.3 Seconds (25.1-36.5) H 11/16/17 05:45 - Constitutional Appears: Non-toxic, Chronically Ill - Head Exam Head Exam: NORMAL INSPECTION - ENT Exam ENT Exam: Mucous Membranes Moist - Neck Exam Neck Exam: absent: Meningismus - Respiratory Exam Respiratory Exam: Decreased Breath Sounds - Cardiovascular Exam Cardiovascular Exam: +S1, +S2 - GI/Abdominal Exam GI & Abdominal Exam: Soft. absent: Tenderness - Extremities Exam Additional comments: right leg with posterior lower portion with some erythema and weeping Assessment and Plan - Assessment and Plan (Free Text) Plan: Assessment S/P Severe sepsis due to right leg cellulitis with associated DVT - some erythema on the lower posterior portion of the right leg is more localizes distal colonic obstruction GERD chronic anemia anxiety history of SBO history of recurrent pneumonia Plan completed course of systemic antibiotics - can continue Bactroban over the affected area on the right leg for 5-7 days with outpatient follow up with PMD
--- NOTE | 2017-11-16 13:15 | CP.PCM.PCO ---
Physician Communication Note - Physician Communication Note Physician Communication Note: Excision skin CA 11/17 10:30am
--- NOTE | 2017-11-16 13:36 | PN ---
DATE: 11/16/2017 REFERRING PHYSICIAN: Meme Rey MD. SUBJECTIVE: He is lying in the bed, head at 45 degrees. Has still right leg edema, swelling, and mild erythema. No nausea, no vomiting. No diarrhea. OBJECTIVE GENERAL: In no acute distress. VITAL SIGNS: Temperature is 98, heart rate 77, respiratory rate is 20, blood pressure 97/63, pulse ox 100% on room air. HEENT: Moist mucous membranes. Small oral cavity. NECK: Supple. No JVD. LUNGS: Has a fair airflow with rhonchi. HEART: S1, S2. ABDOMEN: Soft, nontender, nondistended. EXTREMITIES: Right leg still has edema. Tender to touch. Mild erythema. NEUROLOGIC: Awake, alert and follows simple command. MEDICATIONS: He is on folic acid 1 mg daily, heparin weight-based protocol, Protonix 40 mg daily, Reglan 5 mg before meals and at bedtime, vitamin B12 1000 mcg IM weekly. LABORATORY DATA: Shows hemoglobin 9.4, hematocrit 29.6, WBC 7.5, platelets is 245,000. PTT is 51. IMPRESSION AND PLAN: Right leg extensive deep venous thrombosis with cellulitis, pulmonary embolism, history of bowel obstruction, B12 deficiency, iron deficiency, hypoalbuminemia, malnourished. Case discussed with Dr. Peace today. Continue to elevate right lower extremity. Continue weight-based heparin protocol. May add p.o. anticoagulation as per hematology. Fall precaution. Thank you and we will follow with you Eber Ziegler MD
--- NOTE | 2017-11-16 23:24 | CP.PCM.PN ---
Subjective - Date & Time of Evaluation Date of Evaluation: 11/16/17 Time of Evaluation: 18:00 - Subjective Subjective: Comfortable. No leg pain. On heparin drip. Hb/hct stable. Objective - Vital Signs/Intake and Output Vital Signs (last 24 hours): Temp Pulse Resp BP Pulse Ox 98.1 F 84 19 111/70 96 11/16/17 16:00 11/16/17 22:00 11/16/17 16:00 11/16/17 16:00 11/16/17 16:00 Intake and Output: 11/16/17 11/17/17 18:59 06:59 Intake Total 250 360 Output Total 1002 Balance 250 -642 - Medications Medications: Current Medications Cyanocobalamin (Vitamin B12 1000 Mcg/Ml Inj) 1,000 mcg IM DAILY [facility] Last Admin: 11/16/17 09:10 Dose: 1,000 mcg Folic Acid (Folic Acid) 1 mg PO DAILY [facility] Last Admin: 11/16/17 09:12 Dose: 1 mg Heparin Sodium/Sodium Chloride (Heparin 98677 Units/250ml 1/2 Normal Saline) 25 ,000 units in 250 mls @ 8.083 mls/hr IV .Q24H PRN; Protocol; 18 UNITS/KG/HR PRN Reason: ADJUST RATE PER PROTOCOL Last Admin: 11/16/17 11:14 Dose: 30.73 units/kg/hr, 13.8 mls/hr Metoclopramide HCl (Reglan) 5 mg IVP ACHS [facility] Last Admin: 11/16/17 21:31 Dose: 5 mg Mupirocin (Bactroban Ointment) 0 gm TOP BID [facility] Pantoprazole Sodium (Protonix Inj) 40 mg IVP Q12 [facility] Last Admin: 11/16/17 21:31 Dose: 40 mg - Labs Labs: 11/16/17 05:45 11/15/17 07:00 PT 12.1 SECONDS (9.4-12.5) 11/15/17 09:26 INR 1.05 (0.93-1.08) 11/15/17 09:26 APTT 51.3 Seconds (25.1-36.5) H 11/16/17 05:45 - Constitutional Appears: No Acute Distress - Head Exam Head Exam: ATRAUMATIC, NORMAL INSPECTION, NORMOCEPHALIC - Eye Exam Eye Exam: Normal appearance - Neck Exam Neck Exam: Normal Inspection - Respiratory Exam Respiratory Exam: Clear to Ausculation Bilateral, NORMAL BREATHING PATTERN - Cardiovascular Exam Cardiovascular Exam: REGULAR RHYTHM, +S1, +S2 - GI/Abdominal Exam GI & Abdominal Exam: Soft, Normal Bowel Sounds - Extremities Exam Extremities Exam: Normal Inspection - Back Exam Back Exam: NORMAL INSPECTION Assessment and Plan - Assessment and Plan (Free Text) Assessment: 1. DVT, B/L PE. on heparin drip. IVC filter scheduled for tomorrow. Eliquis 10 mg BID after filter. 2. Right leg pain decreased. 3. Anemia : hb?hct stable. Thank you Dr. Rey for allowing us to participate in his care.
--- NOTE | 2017-11-17 01:36 | PN ---
DATE:11/16/2017 SUBJECTIVE: This patient was seen and evaluated earlier today. Patient is tolerating the diet. No obvious bleeding. No melena, no bright red blood per rectum. Concerned about still the erythema and discomfort of the right leg . PHYSICAL EXAMINATION: VITAL SIGNS: Temperature is 98.1, pulse 100, blood pressure is 111/70, respirations 19. HEENT: Atraumatic, anicteric. NECK: Supple. HEART: S1 and S2 heard. LUNGS: Bilateral air entry present. ABDOMEN: Soft. Surgical incisions noticed. EXTREMITIES: Right leg erythema and swelling present. NEUROLOGIC: Alert, oriented. Moves all the extremities. LABORATORY DATA: Hemoglobin appears stable, 9.4; hematocrit 29.6, WBC 7.5, platelets 245. IMPRESSION: 1. This is a 47-year-old patient, mentally challenged, admitted with cellulitis, right leg deep venous thrombosis, has a pulmonary embolism. The patient has been on intravenous heparin. Plan to have inferior vena cava filter and possibility of Coumadin. Plan to be started on oral anticoagulation. Patient is scheduled for inferior vena cava filter in view of the deep vein thrombosis and pulmonary embolism. Patient has a history of anemia, drop in blood count. 2. Patient has a history of status post subtotal gastrectomy with gastroenterostomy. Patient also has a subtotal colectomy with colo-ileal anastomosis in the sigmoid colon. 3. Patient also has anastomotic stricture, ulcer erosions at the anastomotic area in the past, history of dilation done in the past. Patient has been moving his bowels. 4. Patient's family was reluctant about doing a repeat endoscopy. In view of the stability of the hemoglobin, on anticoagulation, it is reasonable to wait before contemplating for a repeat endoscopic evaluation. 5. If the patient develops any significant drop in blood count or active bleeding, we will discuss with the family again about esophagogastroduodenoscopy and flexible sigmoidoscopy. At this present time, hemoglobin appears to be stable. 6. Patient is planning to have the inferior vena cava filter placement in view of this large extensive deep vein thrombosis and also pulmonary embolism. 7. Patient planned to be started on oral anticoagulation, we need to have a close followup of the hemoglobin and hematocrit. 8. Patient has been on metoclopramide and recommendation is to give only short courses of the Reglan than continuous use of Reglan to prevent the side effects. Thank you very much for allowing us to participate in the care of this patient. Cristiane Davies MD [facility]
[2017-11-17 06:23] LABS: HEMOGLOBIN 9.3 g/dL (14.0-18.0); MEAN CELL VOLUME 90.4 fl (80.0-105.0); MEAN CORPUSCULAR HEMOGLOBIN 28.8 pg (25.0-35.0); MEAN CORPUSCULAR HGB CONC 31.8 g/dl (31.0-37.0); MEAN PLATELET VOLUME 9.6 fl (7.0-11.0); RBC 3.23 10^6/uL (3.5-6.1); RED CELL DISTRIBUTION WIDTH 17.1 % (11.5-14.5); WHITE BLOOD COUNT 6.4 10^3/ul (4.5-11.0)
[2017-11-17 06:48] LABS: ALB/GLOB RATIO 0.8 (1.1-1.8); ALBUMIN 2.1 g/dL (3.0-4.8); ALT/SGPT 48 U/L (7-56); AST/SGOT 53 U/L (17-59); BLOOD UREA NITROGEN 8 mg/dL (7-21); CALCIUM 8.6 mg/dL (8.4-10.5); GFR AFRICAN-AMERICAN > 60; GFR NON-AFRICAN AMERICAN > 60
[2017-11-17 08:03] VITALS: RESP 20
[2017-11-17] MEDS ORDERED: Lidocaine 1% Inj (20ml) ONE (09:59)
[2017-11-17] MEDS: Bupivacaine 0.5% Inj(30mL) ONE ×2 (11:11→11:15)
--- NOTE | 2017-11-17 11:42 | PCM.SURG1 ---
Surgeon's Initial Post Op Note - Surgeon's Notes Surgeon: Dr. Andres Henson Food Clerk: Dona Nolan, PGY2 Type of Anesthesia: Local Pre-Operative Diagnosis: Facial skin lesion on the right Operative Findings: right face skin lesion 1cm diameter, 2mm deep Post-Operative Diagnosis: same Operation Performed: shave biopsy of right face skin lesion Specimen/Specimens Removed: right face skin lesion Estimated Blood Loss: EBL {In ML}: 1 Post-Op Condition: Good Date of Surgery/Procedure: 11/17/17 Time of Surgery/Procedure: 11:00
--- NOTE | 2017-11-17 11:44 | CP.PCM.PN ---
<Samantha Waldron - Last Filed: 11/17/17 11:44> Subjective - Date & Time of Evaluation Date of Evaluation: 11/17/17 Time of Evaluation: 09:45 - Subjective Subjective: Seen and examined at the bedside earlier today,patient denies nausea, vomiting, or abdominal pain tolerating pured diet. No reports of any diarrhea or BM today I waiting to go for IVC filter today no acute overnight events reported. Objective - Vital Signs/Intake and Output Vital Signs (last 24 hours): Temp Pulse Resp BP Pulse Ox 97.4 F L 77 20 89/55 L 98 11/17/17 10:10 11/17/17 10:10 11/17/17 10:10 11/17/17 10:10 11/17/17 10:10 Intake and Output: 11/17/17 11/17/17 06:59 18:59 Intake Total 360 Output Total 2001 Balance -1642 - Medications Medications: Current Medications Cyanocobalamin (Vitamin B12 1000 Mcg/Ml Inj) 1,000 mcg IM DAILY [facility] Last Admin: 11/17/17 09:28 Dose: 1,000 mcg Folic Acid (Folic Acid) 1 mg PO DAILY [facility] Last Admin: 11/17/17 09:29 Dose: Not Given Heparin Sodium/Sodium Chloride (Heparin 55523 Units/250ml 1/2 Normal Saline) 25 ,000 units in 250 mls @ 8.083 mls/hr IV .Q24H PRN; Protocol; 18 UNITS/KG/HR PRN Reason: ADJUST RATE PER PROTOCOL Last Admin: 11/16/17 11:14 Dose: 30.73 units/kg/hr, 13.8 mls/hr Metoclopramide HCl (Reglan) 5 mg PO ACHS [facility] Mupirocin (Bactroban Ointment) 0 gm TOP BID [facility] Last Admin: 11/17/17 09:29 Dose: 1 applic Pantoprazole Sodium (Protonix Inj) 40 mg IVP Q12 [facility] Last Admin: 11/17/17 09:28 Dose: 40 mg - Labs Labs: 11/17/17 05:30 11/17/17 05:30 PT 12.1 SECONDS (9.4-12.5) 11/15/17 09:26 INR 1.05 (0.93-1.08) 11/15/17 09:26 APTT 51.3 Seconds (25.1-36.5) H 11/16/17 05:45 - Constitutional Appears: No Acute Distress - Eye Exam Eye Exam: Normal appearance. absent: Scleral icterus - ENT Exam ENT Exam: Mucous Membranes Moist - Neck Exam Neck Exam: Normal Inspection - Respiratory Exam Respiratory Exam: Decreased Breath Sounds, NORMAL BREATHING PATTERN. absent: Rales, Wheezes, Respiratory Distress - Cardiovascular Exam Cardiovascular Exam: +S1, +S2 - GI/Abdominal Exam GI & Abdominal Exam: Soft, Normal Bowel Sounds. absent: Guarding, Tenderness, Organomegaly, Rebound - Extremities Exam Extremities Exam: Pedal Edema (right leg with erythema and edema) - Neurological Exam Neurological Exam: Alert, Awake, Oriented x3 - Skin Skin Exam: Dry, Warm Assessment and Plan - Assessment and Plan (Free Text) Assessment: Assessment: Anemia, decreased hemoglobin on anticoagulant DVT/PE Colonic obstruction, history of recurrent SBO and multiple abdominal surgery H/O anastmotic ulcer Mentally challenged Sepsis/cellulitis lower extremity right Hyponatremia Plan: puree diet On heparin drip as per protocol Monitor H&H and for GI bleed on Reglan, recommend short courses Awaiting for IVC filter today Continue GI prophylaxis OFF antibiotics family reluctant for endoscopy since hemoglobin is steady, will continue to monitor H&H, any active bleeding or continued decreasing hemoglobin reconsider endoscopy. Seen and discussed with Dr. Davies <Cristiane Davies V - Last Filed: 11/17/17 19:54> Objective - Vital Signs/Intake and Output Vital Signs (last 24 hours): Temp Pulse Resp BP Pulse Ox 97.6 F 92 H 20 101/56 L 95 11/17/17 16:00 11/17/17 16:00 11/17/17 16:00 11/17/17 16:00 11/17/17 16:00 - Labs Labs: 11/17/17 05:30 11/17/17 05:30 PT 12.1 SECONDS (9.4-12.5) 11/15/17 09:26 INR 1.05 (0.93-1.08) 11/15/17 09:26 APTT 28.2 Seconds (25.1-36.5) 11/17/17 12:45 Attending/Attestation - Attestation I have personally seen and examined this patient.: Yes I have fully participated in the care of the patient.: Yes I have reviewed all pertinent clinical information, including history, physical exam and plan: Yes Notes (Text): This is an addendum to GI progress report dictated by Samantha Waldron APN.The patient was seen and examined earlier. Medical records, lab studies, imagings were reviewed. Last 24 hours events reviewed. Agreed with the above treatment plan as outlined in Samantha Waldron APN's notes the with the addition of the following patient did have finally bowel movements today. No bleeding per rectum no melena tolerating the diet Hct remained stable On examination abdomen soft no tenderness Plan for IVC filter then oral anticoagulation as per Hematology 11/17/17 19:52
[2017-11-17] MEDS: Heparin25000 units/250ml 1/2NS 25,000 UNITS/250 ML BAG IV PRN (13:55)
[2017-11-17 16:45] VITALS: BP 101/56; PULSE 92; TEMP 97.6; O2SAT 95
--- NOTE | 2017-11-17 18:04 | PN ---
DATE: 11/17/2017 SUBJECTIVE: I spoke at length with Dr. Andres Henson concerning placement of an IVC filter in Mr. Dee. He is a 47-year-old man, mentally challenged, who presented with an extensive right iliofemoral DVT and small pulmonary emboli. He was treated initially with IV heparin. It was suggested that Mr. Dee have an IVC filter placed. Mr. Dee was anemic on presentation. He has received 2 units of packed red blood cells and responded appropriately. We have not documented any ongoing active bleeding. At this point in time, I would defer on IVC filter placement. Ideally, Mr. Dee would be treated with a DOAC. Pradaxa can be considered. If there is any documented significant drop in his hematocrit or active bleeding, an IVC filter can be placed at that time. In the interim, he should be anticoagulated and IVC filter would only increase his risk of thrombus progression or recurrent DVT. Juan Easley MD [facility]
--- NOTE | 2017-11-18 11:18 | DS ---
CHIEF COMPLAINT: Weakness and low hemoglobin. HISTORY OF PRESENT ILLNESS: Mr. Sean Dee is a 47-year-old male with multiple medical problems, especially anemia, GERD, aspiration pneumonia, multiple abdominal surgeries, history of perforation of the stomach, history of chronic constipation, came to the Emergency Room with sister and surgeon/president with history of swelling of his right leg noticed one day before admission, feeling of fatigue and tired. Appetite is not great, but with his blood test, hemoglobin was very low. We did CAT scan of the chest abdomen and pelvis. Patient was admitted in the unit, blood transfusion given, improved, put on heparin drip, still on heparin drip. Today, went for cheek biopsy . Patient has lesion on the right cheek. Dr. Peace did biopsy to rule out cancer. Seen by Dr. Del Rosario for sepsis. Still getting heparin drip, transferring patient to TCU for bridging and deconditioning. PAST MEDICAL HISTORY: As above; history of aspiration pneumonia, chronic constipation, intestinal obstruction multiple times, multiple abdominal surgeries, blood transfusion, multiple scarring on the abdominal area with multiple abdominal surgeries, history of colostomy and reversal, colitis. Patient has Down syndrome, mentally retarded. FAMILY HISTORY: Father and mother, noncontributory. Child is adopted, we do not know the family history. HABITS: Never smoked, no drug, no ethanol. ALLERGIES: THE PATIENT IS NOT ALLERGIC TO ANY MEDICATIONS. HOME MEDICATIONS: Reviewed by me. REVIEW OF SYSTEMS: The patient is seen and examined on the bedside, looking comfortable. I saw him early in the morning. No nausea, vomiting, or diarrhea. No hematuria. No hematochezia. Swelling of the leg is better. No chest pain. No headache. No dizziness. No fever. No chills. PHYSICAL EXAMINATION: VITAL SIGNS: Temperature 97.4, pulse 77, blood pressure 89/55, respiratory rate 20. HEENT: Head normocephalic, atraumatic. Eyes, PERRLA. Extraocular muscles are intact. Conjunctivae clear. Nose patent. Mucous membranes are moist. NECK: Supple. No carotid bruits, JVD or thyromegaly. CHEST: Bilaterally symmetrical. HEART: S1 and S2 positive. LUNGS: Clear to auscultation. ABDOMEN: Soft. Bowel sounds present. No organomegaly. EXTREMITIES: No edema. No cyanosis. NEUROLOGIC: The patient is awake and alert. Moving all 4 extremities. No focal deficits. MEDICATIONS: Bactroban ointment, folic acid, heparin, Protonix, Reglan, B12. LABORATORY DATA: White blood cells 6.4, hemoglobin 9.3, hematocrit 29.2, platelets 225. Sodium 132, potassium 4.0, BUN 8, creatinine 0.5. ASSESSMENT AND PLAN: Mr. Sean Dee is a 47-year-old male, came with severe anemia, hemoglobin was 7.4, a couple of blood transfusions given, now hemoglobin is stable, iron deficiency, history of chronic constipation, Down syndrome, mentally challenged, cellulitis of the right leg improved, right leg deep vein thrombosis, pulmonary emboli. Patient was in intravenous heparin and today went for filter in inferior vena cava. Maybe after that, we will put on oral blood thinner. History of lesion on the right cheek, Dr. Peace will do biopsy today. History of subtotal gastrectomy with gastroenterostomy, subtotal colectomy with colo-ileal anastomosis in the sigmoid colon, history of anastomosis stricture, ulceration at the anastomotic area in the past, history of dilatation done in the past. Patient's family is reluctant about doing a repeat endoscopy in the view of the stability of the hemoglobin, on anticoagulation. It is reasonable to wait before contemplating , endoscopy evaluation. Patient came with significant drop of the hemoglobin, blood transfusions given. According to Dr. Davies, he will discuss with family. as per gl need gastroduodenoscopy and flexible sigmoidoscopy. Gastrointestinal and deep venous thrombosis prophylaxis. We will transfer the patient to Transitional Care Unit, and will continue followup there. Meme Rey MD [facility]
--- NOTE | 2017-11-25 14:20 | OP ---
PROCEDURE DATE: 11/17/2017 Admitted on 11/07/2017 to room 360, bed 1. Operated on 11/17/2017. PREOPERATIVE DIAGNOSES: 1. 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 2. Right leg deep venous thrombosis. 3. Anemia. POSTOPERATIVE DIAGNOSES: 1. 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 2. Right leg deep venous thrombosis. 3. Anemia. PATHOLOGY: Pending. PROCEDURE: On 11/17/2017 is excision of a tumor on the right face. SURGEON: Andres Henson MD. COMMUNICATIONS AND SIGNALS SUPERVISOR: Dona Nolan DO, PGY-1. TYPE OF ANESTHESIA: Local, bupivacaine 0.5 - 7 mL. ANESTHESIA ADMINISTERED BY: Onelia Joseph NP. OPERATIVE INDICATION: The patient is a 47-year-old male who enters the hospital with DVT in his right leg and a long-term history of multiple GI procedures and complaints. He has been under heparin therapy for the past week and the lesion on his right face is oozing blood and the patient will be placed on a long-term anticoagulant and this lesion is suspicious for a possible malignancy and interferes with shaving and this causes bleeding. The patient and family concur and the patient will have the lesion removed under local anesthesia. DESCRIPTION OF PROCEDURE: The patient was brought to the operating room. He was identified by his wrist band. He was maintained on his transportation gurney, placed in a semi-Meza's position and monitored by the nurse practitioner, Opal and given oxygen at 2 L per minute. The right face was prepped with Hibiclens, chlorhexidine preparation, aseptically draped and infiltrated with a 30-gauge needle with 7 mL of bupivacaine plain. Following this, shave excision was performed submitting the specimen in formalin for permanent section analysis and the base was electrofulgurated with the cautery coagulating current and hemostasis was contained. A small Band-Aid was placed over same and the patient was now returned to same day surgery and to his floor. Sponge, instrument and suture counts were verified as correct. Estimated blood loss during the procedure was minimal. This dictation will be electronically signed without being read. The salesperson surgical appliances was present throughout and was extremely helpful in allowing the surgery to be performed and in helping excise the lesion and coagulate the base. Andres Henson MD [facility] # [id number]
== END 2017-11-17 17:25 | DRG 871 ==
LOC: ED 12:08 → UNDOADMIN 16:32 → ERH 16:32 → ICU 20:58 → 3RNO 11-11 14:53
PROVIDERS: ADMIT Internal Medicine; ATTEND Internal Medicine
PROC: 30233N1 Transfusion of Nonautologous Red Blood Cells into Peripheral Vein, Percutaneous Approach (ICD-10-PCS; 2017-11-12)
PROC: 0HB1XZX Excision of Face Skin, External Approach, Diagnostic (ICD-10-PCS; principal; 2017-11-17 10:30)
DX: A41.9 Sepsis, unspecified organism (principal); I26.99 Other pulmonary embolism without acute cor pulmonale; I82.421 Acute embolism and thrombosis of right iliac vein; K56.600 Partial intestinal obstruction, unspecified as to cause; E46 Unspecified protein-calorie malnutrition; R64 Cachexia; L03.115 Cellulitis of right lower limb; E87.1 Hypo-osmolality and hyponatremia; Z68.1 Body mass index [BMI] 19.9 or less, adult; R65.20 Severe sepsis without septic shock; K21.9 Gastro-esophageal reflux disease without esophagitis; F70 Mild intellectual disabilities; E53.8 Deficiency of other specified B group vitamins; F41.9 Anxiety disorder, unspecified; Q90.9 Down syndrome, unspecified; E86.0 Dehydration; D50.9 Iron deficiency anemia, unspecified; E83.51 Hypocalcemia; K31.84 Gastroparesis; L57.0 Actinic keratosis; Z87.01 Personal history of pneumonia (recurrent); Z90.3 Acquired absence of stomach [part of]

== ENCOUNTER 2017-11-17 17:31 | Inpatient (IN) | payer OTHER, MEDICAID ==
[2017-11-17] MEDS: Pantoprazole 40 mg EC Tab PO SCH (22:01)
[2017-11-18 02:16] VITALS: BMI 19.8
--- NOTE | 2017-11-18 04:55 | CON ---
DATE: 11/17/2017 REFERRING PHYSICIAN: Meme Rey MD REASON FOR CONSULTATION: Pulmonary embolism, DVT. HISTORY OF PRESENT ILLNESS: This is a 47-year-old gentleman, well known to me from previous admissions, intellectually disabled, anemia, malnourished, gastroesophageal reflux disease, presented with right lower extremity swelling and erythema, found to have a whole leg diffuse DVT, subsequently had a CT of the abdomen, which shows bilateral pulmonary embolism, on IV heparin, presently admitted to TICU for continued care. He is lying in the bed. No headache, no rhinitis, no cough, no sputum production, does have a right leg swelling and erythema. PAST MEDICAL HISTORY: As per history present illness. ALLERGIES: NONE KNOWN. SOCIAL HISTORY: Nonsmoker, nondrinker. FAMILY HISTORY: No significant cardiopulmonary disease reported. MEDICATIONS: He is on Bactrim ointment twice a day, Eliquis 10 mg twice a day, folic acid 1 mg daily, Protonix 40 mg twice a day, Reglan 5 mg four times a day, vitamin B12 1000 mcg IM daily. REVIEW OF SYSTEMS: No headache, no rhinitis. No nausea, no vomiting. No chest pain. No abdominal pain. Had good bowel movements. Right leg still swollen and painful. PHYSICAL EXAMINATION: GENERAL: No acute distress. VITAL SIGNS: Temperature is 98, heart rate is 87, respiratory rate is 20, blood pressure 96/61, pulse ox 97% on room air. HEENT: Moist mucous membrane. No ulcer or thrush noted. NECK: Supple. No JVD. LUNGS: Has a fair airflow with some rhonchi. HEART: S1, S2. ABDOMEN: Soft, nontender. No organomegaly. EXTREMITIES: Has right leg edema and erythema. NEUROLOGICAL: Awake, alert, does follow simple commands. LABORATORY DATA: Shows hemoglobin 9.3, hematocrit 29.2, WBC 6.4, platelet is 222. PTT is 28. Sodium 132, potassium 4.0, chloride 102, bicarbonate 25, BUN 8, creatinine 0.5, glucose 74, calcium 8.6, AST 53, ALT 48, alk phos is 66. Albumin is 2.1. Microbiology: Blood culture is negative. IMPRESSION AND PLAN: Right leg extensive deep-vein thrombosis with venous thrombosis, cellulitis, pulmonary embolism, history of bowel obstruction, history of partial gastrectomy, colectomy, B12 deficiency, iron deficiency, hypoalbuminemia, malnourished, status post right facial skin tag removal. From a Pulmonary point of view, continue anticoagulation. Keep head 45 degrees. Supplement oxygen. Elevate right lower extremity. Thank you and we will follow with you. Eber Ziegler MD
[2017-11-18] MEDS: Pantoprazole 40 mg EC Tab PO SCH ×2 (09:26→21:38)
--- NOTE | 2017-11-18 10:48 | CP.PCM.PN ---
Subjective - Date & Time of Evaluation Date of Evaluation: 11/18/17 Time of Evaluation: 06:50 - Subjective Subjective: Patient seen and examined in the TCU. No pain, no fevers, no bleeding. Objective - Vital Signs/Intake and Output Vital Signs (last 24 hours): Temp Pulse Resp BP Pulse Ox 97.4 F L 87 20 96/61 L 97 11/18/17 01:34 11/18/17 01:34 11/18/17 01:34 11/18/17 01:34 11/17/17 18:04 - Medications Medications: Current Medications Apixaban (Eliquis) 10 mg PO Q12H [facility] PRN Reason: Protocol Last Admin: 11/18/17 08:30 Dose: 10 mg Cyanocobalamin (Vitamin B12 1000 Mcg/Ml Inj) 1,000 mcg IM DAILY [facility] PRN Reason: Protocol Last Admin: 11/18/17 09:27 Dose: 1,000 mcg Docusate Sodium (Colace) 100 mg PO BID [facility] Last Admin: 11/18/17 09:26 Dose: 100 mg Folic Acid (Folic Acid) 1 mg PO DAILY [facility] PRN Reason: Protocol Last Admin: 11/18/17 09:59 Dose: 1 mg Metoclopramide HCl (Reglan) 5 mg PO 0630,1200,1700,2200 [facility] PRN Reason: Protocol Last Admin: 11/18/17 05:39 Dose: 5 mg Mupirocin (Bactroban Ointment) 0 gm TOP BID [facility] PRN Reason: Protocol Stop: 11/22/17 18:01 Last Admin: 11/18/17 09:29 Dose: 1 appl Pantoprazole Sodium (Protonix Ec Tab) 40 mg PO 1000,2200 [facility] PRN Reason: Protocol Last Admin: 11/18/17 09:26 Dose: 40 mg - Constitutional Appears: Well, Non-toxic, No Acute Distress - Head Exam Head Exam: ATRAUMATIC, NORMOCEPHALIC Additional comments: right cheek surgical dressing intact, with minimal amount of serosanguinous drainage, no active bleeding or drainage - Eye Exam Eye Exam: Normal appearance. absent: Conjunctival injection, Scleral icterus - ENT Exam ENT Exam: Mucous Membranes Moist, Normal Oropharynx - Respiratory Exam Respiratory Exam: NORMAL BREATHING PATTERN. absent: Accessory Muscle Use, Respiratory Distress - GI/Abdominal Exam GI & Abdominal Exam: Soft. absent: Distended, Tenderness - Neurological Exam Neurological Exam: Alert, Awake - Psychiatric Exam Psychiatric exam: Normal Affect, Normal Mood - Skin Skin Exam: Dry, Intact (except as noted above), Normal Color, Warm Assessment and Plan - Assessment and Plan (Free Text) Assessment: 47M POD#1 s/p shave biopsy of facial skin lesion Plan: -Daily bacitracin to the wound -Patient may shower regularly -Will follow up with Dr. Henson after discharge for pathology results -Continue management per primary -Please reach out to the surgical team for any further questions or concerns Thank you for this consult Discussed with Dr. Henson, Dona Nolan, PGY2
--- NOTE | 2017-11-18 11:03 | CP.PCM.PN ---
Subjective - Date & Time of Evaluation Date of Evaluation: 11/18/17 Time of Evaluation: 09:50 - Subjective Subjective: Seen and examined at the bedside earlier today in TCU, chart reviewed. Patient not a candidate for IVC filter, Dr. Easley recommendation noted, on Eliquis, patient denies nausea, vomiting, or abdominal pain. Tolerating oral intake, report to have good appetite. Patient had soft BM yesterday no reports of any bleeding. No acute overnight events reported. Objective - Vital Signs/Intake and Output Vital Signs (last 24 hours): Temp Pulse Resp BP Pulse Ox 97.4 F L 87 20 96/61 L 97 11/18/17 01:34 11/18/17 01:34 11/18/17 01:34 11/18/17 01:34 11/17/17 18:04 - Medications Medications: Current Medications Apixaban (Eliquis) 10 mg PO Q12H [facility] PRN Reason: Protocol Last Admin: 11/18/17 08:30 Dose: 10 mg Cyanocobalamin (Vitamin B12 1000 Mcg/Ml Inj) 1,000 mcg IM DAILY [facility] PRN Reason: Protocol Last Admin: 11/18/17 09:27 Dose: 1,000 mcg Docusate Sodium (Colace) 100 mg PO BID [facility] Last Admin: 11/18/17 09:26 Dose: 100 mg Folic Acid (Folic Acid) 1 mg PO DAILY [facility] PRN Reason: Protocol Last Admin: 11/18/17 09:59 Dose: 1 mg Metoclopramide HCl (Reglan) 5 mg PO 0630,1200,1700,2200 [facility] PRN Reason: Protocol Last Admin: 11/18/17 05:39 Dose: 5 mg Mupirocin (Bactroban Ointment) 0 gm TOP BID [facility] PRN Reason: Protocol Stop: 11/22/17 18:01 Last Admin: 11/18/17 09:29 Dose: 1 appl Pantoprazole Sodium (Protonix Ec Tab) 40 mg PO 1000,2200 [facility] PRN Reason: Protocol Last Admin: 11/18/17 09:26 Dose: 40 mg - Constitutional Appears: No Acute Distress - Head Exam Head Exam: NORMOCEPHALIC - Eye Exam Eye Exam: Normal appearance. absent: Scleral icterus - ENT Exam ENT Exam: Mucous Membranes Moist - Respiratory Exam Respiratory Exam: NORMAL BREATHING PATTERN. absent: Respiratory Distress - Cardiovascular Exam Cardiovascular Exam: +S1, +S2 - GI/Abdominal Exam GI & Abdominal Exam: Soft, Normal Bowel Sounds. absent: Guarding, Tenderness, Organomegaly, Rebound - Extremities Exam Extremities Exam: Calf Tenderness, Pedal Edema (right LE with erythema, dressing in place) - Neurological Exam Neurological Exam: Alert, Awake, Oriented x3 - Skin Skin Exam: Dry, Warm Assessment and Plan - Assessment and Plan (Free Text) Assessment: Assessment: Anemia, decreased hemoglobin on anticoagulant DVT/PE, started on Eliquis Colonic obstruction, history of recurrent SBO and multiple abdominal surgery H/O anastmotic ulcer Mentally challenged Sepsis/cellulitis lower extremity right Hyponatremia Plan: puree diet on Eliquis on Colace Monitor H&H and for GI bleed on Reglan, recommend short courses Continue GI prophylaxis OFF antibiotics family reluctant for endoscopy since hemoglobin is steady, will continue to monitor H&H, any active bleeding or continued decreasing hemoglobin reconsider endoscopy. Seen and discussed with Dr. Davies
--- NOTE | 2017-11-18 11:19 | CP.PCM.CON ---
History of Present Illness - History of Present Illness History of Present Illness: 47 year old male with PMH of GERD, chronic anemia, anxiety, history of SBO, history of recurrent pneumonia, mental disability was initially admitted for right leg swelling and was found to have DVT. He was put on anticoagulation and was also treated for probable right leg cellulitis. He has done well and is now transferred to [facility] for continued medical therapy and physical rehab. Infectious diseases consult is requested to see if the patient still needs antibiotics. Currently the patient is comfortable, not in distress, much improved swelling of the right leg, no fever or chills, no cough, no SOB, no chest pain, no abdominal pain, no diarrhea, no dysuria. Review of Systems - Review of Systems All systems: reviewed and no additional remarkable complaints except (as per HPI ) Past Patient History - Infectious Disease Hx of Infectious Diseases: None - Tetanus Immunizations Tetanus Immunization: Unknown - Past Social History Smoking Status: Never Smoked - CARDIAC Hx Cardiac Disorders: Yes - PULMONARY Hx Respiratory Disorders: Yes Other/Comment: aspiration pneumonia - NEUROLOGICAL Hx Paralysis: No - HEENT Hx HEENT Problems: No - RENAL Hx Chronic Kidney Disease: No - ENDOCRINE/METABOLIC Hx Endocrine Disorders: No - HEMATOLOGICAL/ONCOLOGICAL Hx Blood Transfusions: No Hx Blood Transfusion Reaction: No - INTEGUMENTARY Hx Dermatological Problems: Yes Other/Comment: MULTIPLE SCARRING TO ABDOMINAL AREA FROM MULTIPLE ABDOMINAL SURGERIES - MUSCULOSKELETAL/RHEUMATOLOGICAL Hx Falls: Yes - GASTROINTESTINAL Hx Gastrointestinal Disorders: Yes - GENITOURINARY/GYNECOLOGICAL Hx Genitourinary Disorders: No Hx Reproductive Disorders: No - PSYCHIATRIC Hx Emotional Abuse: No Hx Physical Abuse: No Hx Substance Use: No - SURGICAL HISTORY Hx Surgeries: Yes - ANESTHESIA Hx Anesthesia Reactions: No Hx Malignant Hyperthermia: No Meds Allergies/Adverse Reactions: Allergies Allergy/AdvReac Type Severity Reaction Status Date / Time No Known Allergies Allergy Verified 01/16/17 22:20 - Medications Medications: Current Medications Apixaban (Eliquis) 10 mg PO Q12H [facility] PRN Reason: Protocol Last Admin: 11/17/17 19:43 Dose: Not Given Cyanocobalamin (Vitamin B12 1000 Mcg/Ml Inj) 1,000 mcg IM DAILY [facility] PRN Reason: Protocol Docusate Sodium (Colace) 100 mg PO BID [facility] Folic Acid (Folic Acid) 1 mg PO DAILY [facility] PRN Reason: Protocol Metoclopramide HCl (Reglan) 5 mg PO 0630,1200,1700,2200 [facility] PRN Reason: Protocol Last Admin: 11/18/17 05:39 Dose: 5 mg Mupirocin (Bactroban Ointment) 0 gm TOP BID [facility] PRN Reason: Protocol Stop: 11/22/17 18:01 Pantoprazole Sodium (Protonix Ec Tab) 40 mg PO 1000,2200 [facility] PRN Reason: Protocol Last Admin: 11/17/17 22:01 Dose: 40 mg Physical Exam - Constitutional Appears: Non-toxic - Head Exam Head Exam: NORMAL INSPECTION - ENT Exam ENT Exam: Mucous Membranes Moist - Neck Exam Neck exam: Negative for: Meningismus - Respiratory Exam Respiratory Exam: Decreased Breath Sounds - Cardiovascular Exam Cardiovascular Exam: +S1, +S2 - GI/Abdominal Exam GI & Abdominal Exam: Soft. absent: Tenderness - Extremities Exam Additional comments: much improved swelling of the right leg, much improved erythema Results - Vital Signs Recent Vital Signs: Last Vital Signs Temp 97.4 F L 11/18/17 01:34 Pulse 87 11/18/17 01:34 Resp 20 11/18/17 01:34 BP 96/61 L 11/18/17 01:34 Pulse Ox 97 11/17/17 18:04 Assessment & Plan - Assessment and Plan (Free Text) Plan: Assessment S/P Severe sepsis due to right leg cellulitis with associated DVT - some erythema on the lower posterior portion of the right leg is more localizes distal colonic obstruction GERD chronic anemia anxiety history of SBO history of recurrent pneumonia Plan completed course of systemic antibiotics - can continue Bactroban over the affected area on the right leg for another 4-6 days with outpatient follow up with PMD
--- NOTE | 2017-11-18 12:42 | CP.PCM.PN ---
<Cristina Alford - Last Filed: 11/18/17 12:39> Subjective - Date & Time of Evaluation Date of Evaluation: 11/18/17 Time of Evaluation: 10:30 - Subjective Subjective: Chief complaint: R cheek lesion, R leg wound 47 yr male w/ history of intellectual disability, anemia, GERD, aspiration pneumonia, multiple abdominal surgeries, perforation of stomach, anxiety, recurrent pneumonia, & chronic constipation. Pt seen at bedside preforming physical therapy. R leg wound wrapped with gauze dressing. Pt denies any pain. Pt is a poor historian due to his mental disability. Denies any fever , chills, chest pain, shortness of breath, abdominal pain, nausea, vomiting or urinary problems. Objective - Vital Signs/Intake and Output Vital Signs (last 24 hours): Temp Pulse Resp BP Pulse Ox 97.4 F L 87 20 96/61 L 97 11/18/17 01:34 11/18/17 01:34 11/18/17 01:34 11/18/17 01:34 11/17/17 18:04 - Medications Medications: Current Medications Apixaban (Eliquis) 10 mg PO Q12H ETHAN PRN Reason: Protocol Last Admin: 11/18/17 08:30 Dose: 10 mg Cyanocobalamin (Vitamin B12 1000 Mcg/Ml Inj) 1,000 mcg IM DAILY ETHAN PRN Reason: Protocol Last Admin: 11/18/17 09:27 Dose: 1,000 mcg Docusate Sodium (Colace) 100 mg PO BID TEHAN Last Admin: 11/18/17 09:26 Dose: 100 mg Folic Acid (Folic Acid) 1 mg PO DAILY ETHAN PRN Reason: Protocol Last Admin: 11/18/17 09:59 Dose: 1 mg Metoclopramide HCl (Reglan) 5 mg PO 0630,1200,1700,2200 ETHAN PRN Reason: Protocol Last Admin: 11/18/17 12:02 Dose: 5 mg Mupirocin (Bactroban Ointment) 0 gm TOP BID ETHAN PRN Reason: Protocol Stop: 11/22/17 18:01 Last Admin: 11/18/17 09:29 Dose: 1 appl Pantoprazole Sodium (Protonix Ec Tab) 40 mg PO 1000,2200 ETHAN PRN Reason: Protocol Last Admin: 11/18/17 09:26 Dose: 40 mg - Constitutional Appears: Chronically Ill - Head Exam Additional comments: R cheek lesion, crusting, biopsy done. c/d/i - Eye Exam Eye Exam: EOMI, Normal appearance, PERRL Pupil Exam: NORMAL ACCOMODATION, PERRL - ENT Exam ENT Exam: Mucous Membranes Moist, Normal Exam - Neck Exam Neck Exam: Full ROM, Normal Inspection. absent: Lymphadenopathy - Respiratory Exam Respiratory Exam: Clear to Ausculation Bilateral, NORMAL BREATHING PATTERN - Cardiovascular Exam Cardiovascular Exam: REGULAR RHYTHM, +S1, +S2. absent: Murmur - GI/Abdominal Exam GI & Abdominal Exam: Soft, Normal Bowel Sounds. absent: Tenderness - Extremities Exam Extremities Exam: Normal Capillary Refill Additional comments: R leg erythema, dressing c/d/I. - Neurological Exam Neurological Exam: Alert, Awake, Oriented x3 - Psychiatric Exam Psychiatric exam: Normal Affect, Normal Mood - Skin Skin Exam: Dry, Intact, Warm Additional comments: pinkish skin tone noted, pallor has improved. Assessment and Plan - Assessment and Plan (Free Text) Plan: Pt is in TCU getting physical therapy & occupational therapy. Tolerating Soft/ Pureed diet. Pt & his sister do not want colonic dilation. EGD/flexsig on hold until H/H stablizes. s/p 2 unit of PRBC. Discontinued IVC filter placement, treatment w/ eliquis onbaord. R leg cellulitis treatment w/ topical abx per ID. Consults: Pulmonary - Dr. Ziegler ID - Dr. Del Rosario IR - Dr. Chloe Easley GI - Dr. Davies Surgery - Dr. Brown Henson Hemo/Onc - Dr. Murillo Reviewed: CXR = WNL R lower ext US = R extensive iliofemoral DVT ECG = NSR CTA chest/abd/pelvis = distal colonic obstruction w/ severe dilation of the proximal colon. the transition point is seen in rectosigmoid. very small bilateral pulmonary emboli CT chest = VQ scan = low probability for pulmonary emboli <Meme Rey - Last Filed: 11/18/17 15:02> Objective - Vital Signs/Intake and Output Vital Signs (last 24 hours): Temp Pulse Resp BP Pulse Ox 98.4 F 88 20 93/62 L 96 11/18/17 10:00 11/18/17 10:00 11/18/17 10:00 11/18/17 10:00 11/18/17 10:00 - Medications Medications: Current Medications Apixaban (Eliquis) 10 mg PO Q12H ETHAN PRN Reason: Protocol Last Admin: 11/18/17 08:30 Dose: 10 mg Bacitracin (Bacitracin) 2 ea TOP DAILY [facility] Cyanocobalamin (Vitamin B12 1000 Mcg/Ml Inj) 1,000 mcg IM DAILY ETHAN PRN Reason: Protocol Last Admin: 11/18/17 09:27 Dose: 1,000 mcg Docusate Sodium (Colace) 100 mg PO BID ETHAN Last Admin: 11/18/17 09:26 Dose: 100 mg Folic Acid (Folic Acid) 1 mg PO DAILY ETHAN PRN Reason: Protocol Last Admin: 11/18/17 09:59 Dose: 1 mg Metoclopramide HCl (Reglan) 5 mg PO 0630,1200,1700,2200 ETHAN PRN Reason: Protocol Last Admin: 11/18/17 12:02 Dose: 5 mg Mupirocin (Bactroban Ointment) 0 gm TOP BID ETHAN PRN Reason: Protocol Stop: 11/22/17 18:01 Last Admin: 11/18/17 09:29 Dose: 1 appl Nystatin (Nystop Topical Powder) 0 gm TOP TID ETHAN PRN Reason: Protocol Pantoprazole Sodium (Protonix Ec Tab) 40 mg PO 1000,2200 ETHAN PRN Reason: Protocol Last Admin: 11/18/17 09:26 Dose: 40 mg Assessment and Plan - Assessment and Plan (Free Text) Plan: 47 yr male w/ history of intellectual disability, anemia, GERD, aspiration pneumonia, multiple abdominal surgeries, perforation of stomach, anxiety, recurrent pneumonia, & chronic constipation. Pt seen at bedside preforming physical therapy. R leg wound wrapped with gauze dressing. Pt denies any pain. Pt is a poor historian due to his mental disability. Denies any fever , chills, chest pain, shortness of breath, abdominal pain, nausea, vomiting or urinary problems.pt is seen and examined at bed side , looking comfortable , agreed all above. chart, meds and labs noted . will f/u
[2017-11-18] MEDS ORDERED: Bacitracin 500 Units/gm Oint Foilpak UD TOP SCH ×2 (13:15)
[2017-11-18] MEDS: Nystatin 100,000 Units/gm Topical Pow(15 gm) TOP SCH (18:05)
--- NOTE | 2017-11-18 18:55 | PN ---
DATE: PULMONARY PROGRESS NOTE REFERRING PHYSICIAN: Meme Rey MD. SUBJECTIVE: He is sitting up in a common room, participating in activities. Night was unremarkable. No headache. No rhinitis. Has a good appetite. No cough. No shortness of breath. No chest pain. No abdominal pain. Still has a right leg swelling and erythema and pain. OBJECTIVE: GENERAL: In no acute distress. VITAL SIGNS: Temp is 98, heart rate is 87, respiratory rate is 20, blood pressure 96/61, pulse ox 97% on room air. HEENT: Moist mucous membrane. Crowded airway. NECK: Supple. No JVD. LUNGS: Have a fair airflow with a few rhonchi. HEART: S1 and S2. ABDOMEN: Soft, nontender. No organomegaly. EXTREMITIES: Right leg edema, erythema, tender to touch. NEUROLOGICAL: Awake and alert. Follows simple command. LABORATORY DATA: Reviewed, no new lab is available. MEDICATIONS: He is on Bactroban ointment to affected area, Colace 100 mg twice a day, Eliquis 10 mg twice a day, folic acid 1 mg daily, Protonix 40 mg twice a day, Reglan 5 mg four times daily, vitamin 1000 mcg IM weekly. IMPRESSION AND PLAN: Right leg extensive deep venous thrombosis. May have a component of cellulitis, pulmonary embolism, probable obstruction in the past requiring partial colectomy and also gastrectomy in the remote past, B12 deficiency, iron deficiency, hypoalbuminemia, malnourished, has a decubitus ulcer. Case discussed with nursing staff. Encouraged p.o. intake. Dietary consult to optimize p.o. calories. Also, spoke to Surgery . Radiology intervention and vascular intervention suggested the patient is high risk for inferior vena cava filter especially because of clotting, , also high risk for anticoagulation because of fall, because of his mental status. Decision is made to understand risk benefit ratio to continue anticoagulation. Probably will need long-term anticoagulation and fall precaution. Continue to follow H and H. If that point comes that he fall or he has a drop of further H and H, may reconsider about inferior vena cava filter. He is a high risk for thromboembolic disease and high risk for pulmonary embolism at present time. We will order labs in the morning. Thank you and we will follow with you. Eber Ziegler MD [facility] # [id number]
--- NOTE | 2017-11-19 00:17 | CON ---
DATE: 11/17/2017 CONSULT REQUESTED BY: Meme Rey MD REASON FOR CONSULTATION: DVT, right lower extremity. HISTORY OF PRESENT ILLNESS: Mr. Dee is a 47-year-old male, mentally challenged. Admitted with right lower extremity DVT. He also had bilateral pulmonary embolism. He was on heparin drip recently. Plan was to put IVC filter. He has multiple other comorbid conditions, aspiration pneumonia, multiple abdominal surgeries, recent distal colonic obstruction, resolved now. He is currently comfortable. Swelling and pain of right lower extremity decreased. PAST MEDICAL HISTORY: Aspiration pneumonia, mentally challenged, chronic anemia, history of GI bleed, history of small bowel obstruction, history of colitis. FAMILY HISTORY: Noncontributory. PERSONAL HISTORY: Never smoked. No history of alcohol abuse. REVIEW OF SYSTEMS: As per HPI. Rest of 12-point review of systems reviewed negative. PHYSICAL EXAMINATION GENERAL: Comfortable in bed, in no acute distress. VITAL SIGNS: Temperature 97.8, heart rate is 80 per minute, respiratory rate 15 per minute, blood pressure 100/60, pulse ox is 99% on room air. HEENT: Pallor positive. NECK: No lymphadenopathy. CHEST: Air entry present and equal bilaterally. No added sounds. CARDIOVASCULAR: S1 and S2 normal. No murmur. No gallop. ABDOMEN: Soft and nontender. No hepatosplenomegaly. EXTREMITIES: Right extremity edema decreased. NEUROLOGIC: Awake, alert and oriented x3. No focal sensory or motor deficit. LABORATORY DATA: Reviewed. MEDICATIONS: Reviewed. ASSESSMENT: Iron deficiency anemia; deep vein thrombosis, right lower extremity; pulmonary embolism, mentally challenged, multiple abdominal surgeries; recent colonic obstruction, managed conservatively. PLAN: Heparin drip is discontinued. We will start Eliquis 10 mg p.o. b.i.d. for 7 days and then 5 mg p.o. b.i.d. He will need lifelong anticoagulation because of multiple comorbid conditions and limited mobility. He also has B12 deficiency for which he is on B12. He was started on B12 IM. We will resume to monthly B12 injections IM. Sepsis resolved. Colonic obstruction resolved. Thank you Dr. Rey for allowing us to participate in Mr. Dee's care. Candace Lidia, MD
[2017-11-19 07:21] LABS: HEMOGLOBIN 9.1 g/dL (14.0-18.0); MEAN CELL VOLUME 89.8 fl (80.0-105.0); MEAN CORPUSCULAR HEMOGLOBIN 28.2 pg (25.0-35.0); MEAN CORPUSCULAR HGB CONC 31.4 g/dl (31.0-37.0); MEAN PLATELET VOLUME 9.8 fl (7.0-11.0); RBC 3.23 10^6/uL (3.5-6.1); RED CELL DISTRIBUTION WIDTH 16.8 % (11.5-14.5); WHITE BLOOD COUNT 5.4 10^3/ul (4.5-11.0)
[2017-11-19] MEDS: Bacitracin 500 Units/gm Oint Foilpak UD TOP SCH ×2 (09:34→17:29)
[2017-11-19] MEDS: Nystatin 100,000 Units/gm Topical Pow(15 gm) TOP SCH ×3 (09:34→17:29)
[2017-11-19] MEDS: Pantoprazole 40 mg EC Tab PO SCH ×2 (09:35→21:54)
--- NOTE | 2017-11-19 14:27 | CP.PCM.PN ---
Subjective - Date & Time of Evaluation Date of Evaluation: 11/19/17 Time of Evaluation: 07:10 - Subjective Subjective: Patient seen and examined at bedside. Patient denied any pain in his face just complaining about leg pain. Objective - Vital Signs/Intake and Output Vital Signs (last 24 hours): Temp Pulse Resp BP Pulse Ox 98.4 F 96 H 18 92/57 L 97 11/19/17 10:17 11/19/17 10:17 11/19/17 10:17 11/19/17 10:17 11/19/17 10:17 - Medications Medications: Current Medications Acetaminophen (Tylenol 325mg Tab) 650 mg PO TID PRN; Protocol PRN Reason: Pain, Mild (1-3) Last Admin: 11/18/17 21:36 Dose: 650 mg Apixaban (Eliquis) 10 mg PO Q12H ETHAN PRN Reason: Protocol Last Admin: 11/19/17 08:21 Dose: 10 mg Bacitracin (Bacitracin) 2 ea TOP BID ETHAN Last Admin: 11/19/17 09:34 Dose: 2 ea Docusate Sodium (Colace) 100 mg PO BID ETHAN Last Admin: 11/19/17 09:35 Dose: 100 mg Folic Acid (Folic Acid) 1 mg PO DAILY ETHAN PRN Reason: Protocol Last Admin: 11/19/17 09:34 Dose: 1 mg Metoclopramide HCl (Reglan) 5 mg PO 0630,1200,1700,2200 ETHAN PRN Reason: Protocol Last Admin: 11/19/17 12:53 Dose: 5 mg Mupirocin (Bactroban Ointment) 0 gm TOP BID ETHAN PRN Reason: Protocol Stop: 11/22/17 18:01 Last Admin: 11/19/17 09:35 Dose: 1 appl Nystatin (Nystop Topical Powder) 0 gm TOP TID ETHAN PRN Reason: Protocol Last Admin: 11/19/17 14:20 Dose: 1 applic Pantoprazole Sodium (Protonix Ec Tab) 40 mg PO 1000,2200 ETHAN PRN Reason: Protocol Last Admin: 11/19/17 09:35 Dose: 40 mg - Labs Labs: 11/19/17 06:15 - Constitutional Appears: Well, Non-toxic, No Acute Distress - Head Exam Head Exam: ATRAUMATIC, NORMOCEPHALIC Additional comments: right cheek surgery site with no erythema, drainage, or bleeding - Eye Exam Eye Exam: Normal appearance. absent: Conjunctival injection, Scleral icterus - ENT Exam ENT Exam: Mucous Membranes Moist, Normal Oropharynx - Respiratory Exam Respiratory Exam: NORMAL BREATHING PATTERN. absent: Accessory Muscle Use, Respiratory Distress - Extremities Exam Additional comments: right leg with bandage that is clean, dry, and intact - Neurological Exam Neurological Exam: Alert, Awake, Oriented x3 - Psychiatric Exam Psychiatric exam: Normal Affect, Normal Mood Assessment and Plan - Assessment and Plan (Free Text) Assessment: 47M POD#2 s/p shave biopsy of facial skin lesion Plan: -BID bacitracin to the wound -Patient may shower regularly -Will follow up with Dr. Henson after discharge for pathology results -Continue management per primary -Please reach out to the surgical team for any further questions or concerns Thank you for this consult Discussed with Dr. Henson, Dona Nolan, PGY2
--- NOTE | 2017-11-19 16:51 | CP.PCM.PN ---
Subjective - Date & Time of Evaluation Date of Evaluation: 11/19/17 Time of Evaluation: 10:15 - Subjective Subjective: Seen and examined at the bedside earlier today, chart review. No acute overnight events reported. Patient denies nausea, vomiting, or abdominal pain. Continues to tolerate. Diet, having soft BMs no reports of diarrhea or bleeding. Objective - Vital Signs/Intake and Output Vital Signs (last 24 hours): Temp Pulse Resp BP Pulse Ox 99.1 F 83 18 93/60 L 99 11/19/17 16:24 11/19/17 16:24 11/19/17 16:24 11/19/17 16:24 11/19/17 16:24 - Medications Medications: Current Medications Acetaminophen (Tylenol 325mg Tab) 650 mg PO TID PRN; Protocol PRN Reason: Pain, Mild (1-3) Last Admin: 11/18/17 21:36 Dose: 650 mg Apixaban (Eliquis) 10 mg PO Q12H ETHAN PRN Reason: Protocol Last Admin: 11/19/17 08:21 Dose: 10 mg Bacitracin (Bacitracin) 2 ea TOP BID ETHAN Last Admin: 11/19/17 09:34 Dose: 2 ea Docusate Sodium (Colace) 100 mg PO BID ETHAN Last Admin: 11/19/17 09:35 Dose: 100 mg Folic Acid (Folic Acid) 1 mg PO DAILY ETHAN PRN Reason: Protocol Last Admin: 11/19/17 09:34 Dose: 1 mg Metoclopramide HCl (Reglan) 5 mg PO 0630,1200,1700,2200 ETHAN PRN Reason: Protocol Last Admin: 11/19/17 12:53 Dose: 5 mg Mupirocin (Bactroban Ointment) 0 gm TOP BID ETHAN PRN Reason: Protocol Stop: 11/22/17 18:01 Last Admin: 11/19/17 09:35 Dose: 1 appl Nystatin (Nystop Topical Powder) 0 gm TOP TID ETHAN PRN Reason: Protocol Last Admin: 11/19/17 14:20 Dose: 1 applic Pantoprazole Sodium (Protonix Ec Tab) 40 mg PO 1000,2200 ETHAN PRN Reason: Protocol Last Admin: 11/19/17 09:35 Dose: 40 mg - Labs Labs: 11/19/17 06:15 - Constitutional Appears: No Acute Distress - Eye Exam Eye Exam: Normal appearance. absent: Scleral icterus - ENT Exam ENT Exam: Mucous Membranes Moist - Neck Exam Neck Exam: Normal Inspection - Respiratory Exam Respiratory Exam: NORMAL BREATHING PATTERN. absent: Respiratory Distress - Cardiovascular Exam Cardiovascular Exam: +S2 - GI/Abdominal Exam GI & Abdominal Exam: Soft, Normal Bowel Sounds. absent: Guarding, Tenderness, Rebound - Extremities Exam Extremities Exam: absent: Calf Tenderness - Neurological Exam Neurological Exam: Alert, Awake, Oriented x3 - Skin Skin Exam: Dry, Warm Assessment and Plan - Assessment and Plan (Free Text) Assessment: Assessment: Anemia DVT/PE, on Eliquis Colonic obstruction, history of recurrent SBO and multiple abdominal surgery H/O anastmotic ulcer Mentally challenged Sepsis/cellulitis lower extremity right Hyponatremia Plan: puree diet on Eliquis on Colace Monitor H&H and for GI bleed on Reglan, recommend short courses Continue GI prophylaxis OFF antibiotics family reluctant for endoscopy since hemoglobin is steady, will continue to monitor H&H, any active bleeding or continued decreasing hemoglobin reconsider endoscopy. Seen and discussed with Dr. Davies
--- NOTE | 2017-11-20 02:35 | PN ---
DATE: 11/19/2017 REFERRING PHYSICIAN: Meme Rey MD. SUBJECTIVE: He is sitting up in a wheelchair. Night was unremarkable. No headache. No rhinitis. No nausea. No vomiting. No diarrhea. Still has right leg swelling and pain. OBJECTIVE: GENERAL: In no acute distress. VITAL SIGNS: Temp is 99, heart rate is 83, respiratory rate is 20, blood pressure 93/60, pulse ox 99% on room air. HEENT: Moist mucous membrane. No ulcer or thrush noted. NECK: Supple. No JVD. LUNGS: Have fair airflow with rhonchi. HEART: S1 and S2. ABDOMEN: Soft and nontender. No organomegaly. EXTREMITIES: Right leg is swollen and tender to touch, also some erythema. NEUROLOGIC: Awake and alert. Follows simple commands. MEDICATIONS: He is on Bacitracin ointment to affected area twice a day, Colace 100 mg twice a day, Eliquis 10 mg twice a day, folic acid 1 mg daily, Protonix 40 mg twice a day, Reglan 5 mg four times daily., Tylenol p.r.n. basis. LABORATORY DATA: Shows hemoglobin 9.1, hematocrit 29.7, WBC 5.4, platelet is 250. IMPRESSION AND PLAN: Right leg extensive deep vein thrombosis with some cellulitis, pulmonary embolism, probably obstruction in the small bowel, history of gastrectomy, B12 deficiency, iron deficiency, history of hypoalbuminemia, malnourished, decubitus ulcer. From pulmonary point of view, doing okay. Continue anticoagulation, fall precaution. Keep right lower extremity elevated. Continue therapy. Follow up CBC. Thank you and we will follow with you. Eber Ziegler MD
--- NOTE | 2017-11-20 02:59 | PN ---
DATE: SUBJECTIVE: The patient seen and examined on the bedside, looking comfortable, sitting on the chair. Denies pain on the face or in the body, did physical therapy. No nausea, vomiting or diarrhea. No hematuria or hematochezia. PHYSICAL EXAMINATION: VITAL SIGNS: Temperature 98.4, pulse 96, respiratory rate 18, blood pressure 92/57, pulse oximetry 97. HEENT: Head normocephalic, atraumatic. Eyes PERRLA. Extraocular muscles intact. Conjunctivae clear. Nose patent. NECK: Supple. No carotid bruit. No JVD or thyromegaly. CHEST: Bilaterally symmetrical. HEART: S1 and S2 positive. LUNGS: Clear to auscultation. ABDOMEN: Soft. Bowel sounds positive. No organomegaly. EXTREMITIES: No edema. No cyanosis except the left leg. NEUROLOGICAL: The patient is awake and alert. Moving all 4 extremities. Obeying simple order. MEDICATIONS: Tylenol, Eliquis, bacitracin, Colace, folic acid, Reglan, Bactroban, nystatin, Protonix. LABORATORY DATA: White blood cells 5.4, hemoglobin 9.1, hematocrit 29.0, platelet 250. ASSESSMENT AND PLAN: Mr. Sean Dee is a 47-year-old male with anemia, postoperative day #2 status post shave biopsy of the facial skin lesion on the right cheek. Getting b.i.d. Bactroban on the wound. The patient can have shower regularly as per Surgery. Cellulitis of the leg, getting antibiotics. History of severe anemia, status post blood transfusions multiple times. History of deep venous thrombosis, pulmonary embolism, on Eliquis, colonic obstruction, history of frequent small bowel obstruction and multiple abdominal surgeries, history of anastomotic gastric ulcers, mentally challenged, sepsis, hyponatremia. The patient is getting pureed diet, on Eliquis and Colace, monitoring hemoglobin and hematocrit for GI bleeding; on Reglan, recommended short courses; continuing gastrointestinal prophylaxis. antibiotics. Family reluctant for endoscopy since hemoglobin is steady. We will continue monitoring the hematocrit and hemoglobin. No any active bleeding. If continued decreasing hemoglobin, we will reconsider colonoscopy as per GI. Getting physical therapy. Repeat labs. We will follow up. Meme Candido, MD [facility] # [id number] MTDD
[2017-11-20 06:51] LABS: HEMOGLOBIN 9.1 g/dL (14.0-18.0); MEAN CELL VOLUME 90.1 fl (80.0-105.0); MEAN CORPUSCULAR HEMOGLOBIN 28.3 pg (25.0-35.0); MEAN CORPUSCULAR HGB CONC 31.4 g/dl (31.0-37.0); MEAN PLATELET VOLUME 9.7 fl (7.0-11.0); RBC 3.22 10^6/uL (3.5-6.1); RED CELL DISTRIBUTION WIDTH 16.5 % (11.5-14.5); WHITE BLOOD COUNT 5.7 10^3/ul (4.5-11.0)
[2017-11-20 07:23] LABS: BLOOD UREA NITROGEN 15 mg/dL (7-21); CALCIUM 8.7 mg/dL (8.4-10.5); GFR AFRICAN-AMERICAN > 60; GFR NON-AFRICAN AMERICAN > 60
[2017-11-20] MEDS: Nystatin 100,000 Units/gm Topical Pow(15 gm) TOP SCH ×2 (10:10→18:13)
[2017-11-20] MEDS: Bacitracin 500 Units/gm Oint Foilpak UD TOP SCH ×2 (10:10→18:19)
[2017-11-20] MEDS: Pantoprazole 40 mg EC Tab PO SCH ×2 (10:11→21:04)
--- NOTE | 2017-11-20 11:07 | CP.PCM.PN ---
<Cristina Alford - Last Filed: 11/20/17 11:04> Subjective - Date & Time of Evaluation Date of Evaluation: 11/20/17 Time of Evaluation: 09:40 - Subjective Subjective: Chief complaint: R leg pain, R cheek lesion 47 yr male w/ history of intellectual disability, anemia, GERD, aspiration pneumonia, multiple abdominal surgeries, perforation of stomach, anxiety, recurrent pneumonia, & chronic constipation. Pt seen in activity room, completing puzzles with his sister. Reports R leg pain. Pt is a poor historian due to his mental disability. Denies any fever, chills, chest pain, shortness of breath, abdominal pain, nausea, vomiting or urinary problems. Objective - Vital Signs/Intake and Output Vital Signs (last 24 hours): Temp Pulse Resp BP Pulse Ox 97.5 F L 105 H 18 96/59 L 97 11/20/17 10:44 11/20/17 10:44 11/20/17 10:44 11/20/17 10:44 11/20/17 10:44 - Medications Medications: Current Medications Acetaminophen (Tylenol 325mg Tab) 650 mg PO TID PRN; Protocol PRN Reason: Pain, Mild (1-3) Last Admin: 11/20/17 10:09 Dose: 650 mg Apixaban (Eliquis) 10 mg PO Q12H ETHAN PRN Reason: Protocol Last Admin: 11/20/17 08:10 Dose: 10 mg Bacitracin (Bacitracin) 2 ea TOP BID [facility] Last Admin: 11/20/17 10:10 Dose: 2 ea Docusate Sodium (Colace) 100 mg PO BID [facility] Last Admin: 11/20/17 10:10 Dose: Not Given Folic Acid (Folic Acid) 1 mg PO DAILY [facility]AN PRN Reason: Protocol Last Admin: 11/20/17 10:10 Dose: 1 mg Metoclopramide HCl (Reglan) 5 mg PO 0630,1200,1700,2200 ETHAN PRN Reason: Protocol Last Admin: 11/20/17 05:41 Dose: 5 mg Mupirocin (Bactroban Ointment) 0 gm TOP BID [facility]AN PRN Reason: Protocol Stop: 11/22/17 18:01 Last Admin: 11/20/17 10:10 Dose: 1 appl Nystatin (Nystop Topical Powder) 0 gm TOP TID [facility]AN PRN Reason: Protocol Last Admin: 11/20/17 10:10 Dose: 1 applic Pantoprazole Sodium (Protonix Ec Tab) 40 mg PO 1000,2200 ETHAN PRN Reason: Protocol Last Admin: 11/20/17 10:11 Dose: 40 mg - Labs Labs: 11/20/17 05:30 11/20/17 05:30 - Constitutional Appears: Chronically Ill - Head Exam Additional comments: R cheek lesion, crusting, biopsy done. c/d/i - Eye Exam Eye Exam: EOMI, Normal appearance, PERRL - ENT Exam ENT Exam: Mucous Membranes Moist, Normal Exam - Neck Exam Neck Exam: Full ROM, Normal Inspection. absent: Lymphadenopathy - Respiratory Exam Respiratory Exam: Clear to Ausculation Bilateral, NORMAL BREATHING PATTERN - Cardiovascular Exam Cardiovascular Exam: REGULAR RHYTHM, +S1, +S2. absent: Murmur - GI/Abdominal Exam GI & Abdominal Exam: Soft, Normal Bowel Sounds. absent: Tenderness - Extremities Exam Extremities Exam: Full ROM, Normal Capillary Refill, Normal Inspection. absent : Joint Swelling, Pedal Edema Additional comments: R leg erythema, open to air c/d/I. edema +1, improved - Back Exam Back Exam: NORMAL INSPECTION - Neurological Exam Neurological Exam: Alert, Awake, Normal Gait - Psychiatric Exam Psychiatric exam: Normal Affect, Normal Mood - Skin Skin Exam: Dry, Intact, Warm Additional comments: pinkish skin tone noted, pallor has improved. Assessment and Plan (1) Cellulitis Status: Acute (2) Anemia Status: Acute (3) Colonic obstruction Status: Acute (4) DVT (deep venous thrombosis) Status: Acute (5) Dehydration Status: Acute (6) Pulmonary embolism Status: Acute (7) Small bowel obstruction Status: Acute (8) Mentally disabled Status: Chronic - Assessment and Plan (Free Text) Plan: Pt is in TCU getting physical therapy & occupational therapy. Tolerating diet. Pt & his sister do not want colonic dilation. EGD/flexsig on hold per family request. H/H stablized. s/p 2 unit of PRBC. Discontinued IVC filter placement, treatment w/ eliquis on board. R leg cellulitis treatment w/ topical abx per ID. Pain management: tylenol prn Consults: Pulmonary - Dr. Ziegler ID - Dr. Del Rosario IR - Dr. Chloe Easley GI - Dr. Ratliffmy Surgery - Dr. Brown Henson Hemo/Onc - Dr. Murillo Reviewed: CXR = WNL R lower ext US = R extensive iliofemoral DVT ECG = NSR CTA chest/abd/pelvis = distal colonic obstruction w/ severe dilation of the proximal colon. the transition point is seen in rectosigmoid. very small bilateral pulmonary emboli CT chest = VQ scan = low probability for pulmonary emboli <Meme Rey - Last Filed: 11/21/17 00:04> Objective - Vital Signs/Intake and Output Vital Signs (last 24 hours): Temp Pulse Resp BP Pulse Ox 98.1 F 80 18 98/70 L 96 11/20/17 17:20 11/20/17 17:20 11/20/17 17:20 11/20/17 17:20 11/20/17 17:20 Intake and Output: 11/20/17 11/21/17 18:59 06:59 Intake Total 360 Balance 360 - Medications Medications: Current Medications Acetaminophen (Tylenol 325mg Tab) 650 mg PO TID PRN; Protocol PRN Reason: Pain, Mild (1-3) Last Admin: 11/20/17 10:09 Dose: 650 mg Apixaban (Eliquis) 10 mg PO Q12H ETHAN PRN Reason: Protocol Last Admin: 11/20/17 19:05 Dose: 10 mg Bacitracin (Bacitracin) 2 ea TOP BID [facility] Last Admin: 11/20/17 18:19 Dose: 2 ea Docusate Sodium (Colace) 100 mg PO BID [facility] Last Admin: 11/20/17 18:20 Dose: 100 mg Folic Acid (Folic Acid) 1 mg PO DAILY [facility] PRN Reason: Protocol Last Admin: 11/20/17 10:10 Dose: 1 mg Metoclopramide HCl (Reglan) 5 mg PO 0630,1200,1700,2200 ETHAN PRN Reason: Protocol Last Admin: 11/20/17 21:04 Dose: 5 mg Mupirocin (Bactroban Ointment) 0 gm TOP BID [facility] PRN Reason: Protocol Stop: 11/22/17 18:01 Last Admin: 11/20/17 18:19 Dose: 1 appl Nystatin (Nystop Topical Powder) 0 gm TOP TID [facility]AN PRN Reason: Protocol Last Admin: 11/20/17 18:13 Dose: 1 applic Pantoprazole Sodium (Protonix Ec Tab) 40 mg PO 1000,2200 [facility]AN PRN Reason: Protocol Last Admin: 11/20/17 21:04 Dose: 40 mg - Labs Labs: 11/20/17 05:30 11/20/17 05:30 Assessment and Plan - Assessment and Plan (Free Text) Plan: 47 yr male w/ history of intellectual disability, anemia, GERD, aspiration pneumonia, multiple abdominal surgeries, perforation of stomach, anxiety, recurrent pneumonia, & chronic constipation. Pt seen in activity room, completing puzzles with his sister. Reports R leg pain. Pt is a poor historian due to his mental disability. Denies any fever, chills, chest pain, shortness of breath, abdominal pain, nausea, vomiting or urinary problems.pt is seen and examined at bed side , looking comfortable , agreed all above , will f/u
--- NOTE | 2017-11-20 17:59 | CP.PCM.PN ---
Subjective - Date & Time of Evaluation Date of Evaluation: 11/20/17 Time of Evaluation: 11:35 - Subjective Subjective: Comfortably eating, no fevers, improved pain in the right leg. Objective - Vital Signs/Intake and Output Vital Signs (last 24 hours): Temp Pulse Resp BP Pulse Ox 99.1 F 83 18 93/60 L 99 11/19/17 16:24 11/19/17 16:24 11/19/17 16:24 11/19/17 16:24 11/19/17 16:24 - Medications Medications: Current Medications Acetaminophen (Tylenol 325mg Tab) 650 mg PO TID PRN; Protocol PRN Reason: Pain, Mild (1-3) Last Admin: 11/20/17 10:09 Dose: 650 mg Apixaban (Eliquis) 10 mg PO Q12H [facility]AN PRN Reason: Protocol Last Admin: 11/20/17 08:10 Dose: 10 mg Bacitracin (Bacitracin) 2 ea TOP BID [facility] Last Admin: 11/20/17 10:10 Dose: 2 ea Docusate Sodium (Colace) 100 mg PO BID [facility] Last Admin: 11/20/17 10:10 Dose: Not Given Folic Acid (Folic Acid) 1 mg PO DAILY [facility]AN PRN Reason: Protocol Last Admin: 11/20/17 10:10 Dose: 1 mg Metoclopramide HCl (Reglan) 5 mg PO 0630,1200,1700,2200 ETHAN PRN Reason: Protocol Last Admin: 11/20/17 05:41 Dose: 5 mg Mupirocin (Bactroban Ointment) 0 gm TOP BID [facility] PRN Reason: Protocol Stop: 11/22/17 18:01 Last Admin: 11/20/17 10:10 Dose: 1 appl Nystatin (Nystop Topical Powder) 0 gm TOP TID [facility] PRN Reason: Protocol Last Admin: 11/20/17 10:10 Dose: 1 applic Pantoprazole Sodium (Protonix Ec Tab) 40 mg PO 1000,2200 [facility]AN PRN Reason: Protocol Last Admin: 11/20/17 10:11 Dose: 40 mg - Labs Labs: 11/20/17 05:30 11/20/17 05:30 - Constitutional Appears: Non-toxic - Head Exam Head Exam: NORMAL INSPECTION - ENT Exam ENT Exam: Mucous Membranes Moist - Neck Exam Neck Exam: absent: Meningismus - Respiratory Exam Respiratory Exam: Decreased Breath Sounds - Cardiovascular Exam Cardiovascular Exam: +S1, +S2 - GI/Abdominal Exam GI & Abdominal Exam: Soft. absent: Tenderness Assessment and Plan - Assessment and Plan (Free Text) Plan: Assessment S/P Severe sepsis due to right leg cellulitis with associated DVT - some erythema on the lower posterior portion of the right leg is more localizes distal colonic obstruction GERD chronic anemia anxiety history of SBO history of recurrent pneumonia Plan completed course of systemic antibiotics - continue Bactroban over the affected area on the right leg for another 3 days
--- NOTE | 2017-11-21 02:20 | PN ---
DATE: 11/20/2017 PULMONARY PROGRESS NOTE REFERRING PHYSICIAN: Meme Rey MD. SUBJECTIVE: He is lying in the bed, head at 45 degrees. Night was unremarkable. No headache. No rhinitis. No nausea. No vomiting. Still has leg swelling. OBJECTIVE: GENERAL: In no acute distress. VITAL SIGNS: Temperature is 98.0, heart rate is 80, respiratory rate is 18, blood pressure 98/70, pulse ox 96% on room air. HEENT: Moist mucous membrane. Crowded airway. NECK: Supple. No JVD. LUNGS: Have a fair airflow with rhonchi. HEART: S1 and S2. ABDOMEN: Soft, nontender. No organomegaly. EXTREMITIES: Has right leg edema and swelling. NEUROLOGICAL: Awake and alert. Follows simple commands. MEDICATIONS: He is on Bacitracin ointment to affected area twice a day, Colace 100 mg twice a day, Eliquis 10 mg q.12 hours, folic acid 1 mg daily, nystatin affected area three times a day, Protonix 40 mg twice a day, Reglan 5 mg q.i.d., Tylenol p.r.n. basis. LABORATORY DATA: Shows hemoglobin 9.1, hematocrit 29.0, WBC 5.7, platelet is 262. Sodium 134, potassium 4.0, chloride 103, bicarbonate 25, BUN 15, creatinine 0.7, glucose 83, calcium is 8.7. IMPRESSION AND PLAN: Right leg extensive deep vein thrombosis with erythema, may have cellulitis, pulmonary embolism, history of intestinal obstruction requiring multiple surgeries in the past including partial gastrectomy, hemicolectomy, has B12 deficiency, iron deficiency, history of hypoalbuminemia, malnourished, decubitus ulcer. We will continue anticoagulation. Keep head at 45 degrees. Encouraged p.o. intake. Gastric prophylaxis. Continue Reglan for now. Supplement folic acid, iron. Fall precautions. Thank you and we will follow with you. Eber Ziegler MD
[2017-11-21 08:24] LABS: HEMOGLOBIN 8.8 g/dL (14.0-18.0); MEAN CELL VOLUME 89.4 fl (80.0-105.0); MEAN CORPUSCULAR HEMOGLOBIN 28.2 pg (25.0-35.0); MEAN CORPUSCULAR HGB CONC 31.5 g/dl (31.0-37.0); MEAN PLATELET VOLUME 9.4 fl (7.0-11.0); RBC 3.12 10^6/uL (3.5-6.1); RED CELL DISTRIBUTION WIDTH 16.4 % (11.5-14.5); WHITE BLOOD COUNT 4.9 10^3/ul (4.5-11.0)
[2017-11-21] MEDS: Nystatin 100,000 Units/gm Topical Pow(15 gm) TOP SCH ×2 (10:38→14:45)
[2017-11-21] MEDS: Bacitracin 500 Units/gm Oint Foilpak UD TOP SCH ×2 (10:39→17:49)
[2017-11-21] MEDS: Pantoprazole 40 mg EC Tab PO SCH ×2 (10:50→22:10)
--- NOTE | 2017-11-21 12:17 | CP.PCM.PCO ---
Physician Communication Note - Physician Communication Note Physician Communication Note: Neg for skin CA/Rx Diet/Recheck Iron
--- NOTE | 2017-11-21 14:59 | PN ---
DATE: 11/20/2017 PULMONARY PROGRESS NOTE REFERRING PHYSICIAN: Meme Rey MD. SUBJECTIVE: He is out in the hallway on a wheelchair wheeling himself. Night was unremarkable. No headache. No rhinitis. No cough. No abdominal pain. Still has a right leg swelling and tender. OBJECTIVE: GENERAL: In no acute distress. VITAL SIGNS: Temp is 98, heart rate is 80, respiratory rate is 18, blood pressure 98/70, pulse ox 96% on room air. HEENT: Moist mucous membrane. No ulcer or thrush noted. NECK: Supple. No JVD. LUNGS: Have fair airflow with rhonchi. HEART: S1 and S2. ABDOMEN: Soft, nontender, no organomegaly. EXTREMITIES: Have JEFFERSON stocking of lower extremity. Right leg still has swelling and tender. NEUROLOGIC: Awake and alert. Follows simple command. MEDICATIONS: He is on bacitracin ointment to affected area twice a day, Colace 100 mg twice a day, Eliquis 10 mg twice a day, folic acid 1 mg daily, Protonix 40 mg twice a day, Reglan 5 mg four times a day, Tylenol p.r.n. basis. LABORATORY DATA: Shows hemoglobin 8.8, hematocrit 27.9, WBC 4.9, platelet is 291. Sodium 134, potassium 4.0, chloride 103, bicarbonate 25, BUN is 15, creatinine 0.7, calcium 8.7, that was from yesterday. IMPRESSION AND PLAN: Right leg extensive deep venous thrombosis with some cellulitis, pulmonary embolism, history of intestinal obstruction requiring multiple surgery, also has history of partial gastrectomy, B12 deficiency, iron deficiency, hypoalbuminemia, malnourished, decubitus ulcer. Pulmonary point of view, doing okay. Continue anticoagulation. Keep watching H and H closely. Fall precaution. Elevate right lower extremity. Thank you and we will follow with you. Eber Ziegler MD
--- NOTE | 2017-11-21 23:54 | PN ---
DATE: 11/21/2017 SUBJECTIVE: The patient was seen early this morning, in no acute distress, nontoxic. The patient was seen in room 303. OBJECTIVE: VITAL SIGNS: On exam, temperature is 98, blood pressure is 102/60, respiratory rate of 20, heart rate of 80. HEENT: Unremarkable. NECK: Supple. LUNGS: Have decreased breath sounds. HEART: Normal S1, S2. ABDOMEN: Soft. LABORATORY DATA: Reveals a white count of 4.9, hemoglobin of 8, platelets of 291. BUN of 15, creatinine of 0.7. Dr. Andres Henson' communication report is reviewed and review of orders reveals no antibiotics. ASSESSMENT AND PLAN: A 47-year-old male with severe sepsis, severe right leg cellulitis, associated deep-vein thrombosis, in a patient with gastroesophageal reflux disease, history of distal colonic obstruction, chronic anemia, anxiety, recurrent pneumonias. Currently the patient has completed a course of antibiotics, off of antibiotics. We will follow closely with you. The patient is at risk for developing nosocomial infection. Antwan Del Rosario MD
--- NOTE | 2017-11-22 04:29 | PN ---
DATE: 11/21/2017 SUBJECTIVE: This patient was seen and evaluated earlier today, tolerating the diet, has softer bowel movements. No complaints of any abdominal pain. PHYSICAL EXAMINATION: VITAL SIGNS: Afebrile, blood pressure 102/66, respirations 20, O2 saturation 98%. HEENT: Atraumatic, anicteric sclerae. NECK: Supple. HEART: S1 and S2 heard. LUNGS: Bilateral air entry present. ABDOMEN: Soft. There is no tenderness. EXTREMITIES: Mild edema present. Erythema present in the right lower extremity. NEUROLOGIC: Alert, oriented. LABORATORY DATA: Hemoglobin 8.8, slight drop in blood count, hematocrit 27.9, WBC 4.6, platelets 291. Chemistry is essentially unremarkable. IMPRESSION: 1. This is a 47-year-old patient who is mentally challenged, admitted with cellulitis of the lower extremities , DVT/PE , on Eliquis, slow drop in blood count noticed. 2. Patient has a history of anastomotic stricture, status post subtotal colectomy with ileosigmoid anastomosis. He has a history of anastomotic ulceration noted in the past. 3. History of partial gastrectomy with gastroenterostomy. RECOMMENDATIONS: 1. Followup of the hemoglobin and hematocrit. Continue the PPI. 2. Patient is on pantoprazole. Continue that. 3. Continue the stool softeners. 4. Patient has been on tapering dose of Reglan of 5 mg 4 times daily. We will slowly taper the dose to 3 times a day, then we will slowly take it to one of the standard dose. 5. Continue to closely follow up his care. Thank you very much for allowing me to participate in the care of your patient. Cristiane Davies MD MTDVíctor
[2017-11-22 07:42] LABS: BASO # 0.08 K/mm3 (0.0-2.0); BASO % 1.1 % (0.0-3.0); EOS # 0.2 (0.0-0.7); EOS % 2.1 % (1.5-5.0); GRAN # 5.36 (1.4-6.5); GRAN % 71.6 % (50.0-68.0); HEMOGLOBIN 10.2 g/dL (14.0-18.0); LYMPH # 1.1 (1.2-3.4); MEAN CELL VOLUME 88.7 fl (80.0-105.0); MEAN CORPUSCULAR HEMOGLOBIN 27.4 pg (25.0-35.0); MEAN CORPUSCULAR HGB CONC 30.9 g/dl (31.0-37.0); MEAN PLATELET VOLUME 9.6 fl (7.0-11.0); MONO # 0.8 (0.1-0.6); MONO % 10.2 % (1.0-6.0); RBC 3.72 10^6/uL (3.5-6.1); RED CELL DISTRIBUTION WIDTH 16.4 % (11.5-14.5); WHITE BLOOD COUNT 7.5 10^3/ul (4.5-11.0)
[2017-11-22 08:05] LABS: ALB/GLOB RATIO 0.9 (1.1-1.8); ALBUMIN 3.2 g/dL (3.0-4.8); ALT/SGPT 42 U/L (7-56); AST/SGOT 36 U/L (17-59); BLOOD UREA NITROGEN 22 mg/dL (7-21); CALCIUM 9.2 mg/dL (8.4-10.5); GFR AFRICAN-AMERICAN > 60; GFR NON-AFRICAN AMERICAN > 60
[2017-11-22 09:58] LABS: IRON 37 ug/dL (45-180)
[2017-11-22 10:07] LABS: % IRON SATURATION 11 % (20-55); TOTAL IRON BINDING CAPACITY 331 ug/dL (261-462)
[2017-11-22] MEDS: Nystatin 100,000 Units/gm Topical Pow(15 gm) TOP SCH ×3 (10:40→17:38)
[2017-11-22] MEDS: Pantoprazole 40 mg EC Tab PO SCH ×2 (10:41→21:37)
[2017-11-22] MEDS: Bacitracin 500 Units/gm Oint Foilpak UD TOP SCH ×2 (10:43→17:38)
--- NOTE | 2017-11-22 17:41 | PN ---
DATE: 11/22/2017 SUBJECTIVE: The patient is seen earlier today in 303. No fevers and no chills. PHYSICAL EXAMINATION: GENERAL: Appeared to be comfortable on exam. VITAL SIGNS: Temperature is 97, blood pressure is 102/60, respiratory rate of 18. HEENT: Unremarkable. NECK: Supple. LUNGS: Have decreased breath sounds. HEART: Normal S1, S2. ABDOMEN: Soft, nontender. EXTREMITIES: Examination of the leg is much improved. LABORATORY DATA: Reveals a white count of 7.5, hemoglobin of 10. Chemistries are noted. ASSESSMENT AND PLAN: A 47-year-old male seen earlier today in 303 in the transitional care, who was initially admitted with severe sepsis, right leg cellulitis and associated with a deep venous thrombosis, gastroesophageal reflux disease, history of distal colonic obstruction, chronic anemia, anxiety, recurrent pneumonia and has completed the antibiotic therapy and at this point off of antibiotics and all treatment necessary, has chronic changes on the leg. Review of the order confirms no antibiotics on board at this time. We will follow with you. Antwan Del Rosario MD
--- NOTE | 2017-11-23 01:51 | PN ---
DATE: 11/22/2017 PULMONARY PROGRESS NOTE REFERRING PHYSICIAN: Meme Rey MD. SUBJECTIVE: He is sitting in the common room, doing some puzzles. Night was unremarkable. No headache. No rhinitis. No nausea, no vomiting. Still has a right leg swelling and pain, tenderness. OBJECTIVE: GENERAL: In no acute distress. VITAL SIGNS: Temp is 98, heart rate is 160, respiratory rate is 18, blood pressure 109/78, pulse ox of 97% on room air. HEENT: Moist mucous membranes. Crowded airway. NECK: Supple. No JVD. LUNGS: Have fair airflow with rhonchi. HEART: S1 and S2. ABDOMEN: Soft, nontender. No organomegaly. EXTREMITIES: Does have edema and swelling of the right leg. NEUROLOGIC: Awake, alert. Follows simple command. MEDICATIONS: He is on bacitracin ointment to affected area twice a day, Colace 100 mg twice a day, Eliquis 10 mg q. 12 hours, folic acid 1 mg daily, Protonix 40 mg twice a day, Reglan 5 mg q.i.d., Tylenol p.r.n. basis. LABORATORY DATA: Shows hemoglobin 10.2, hematocrit 33.0, WBC 7.5, platelet is 396. Sodium 134, potassium 4.6, chloride 101, bicarbonate 24, BUN 22, creatinine 0.7, glucose 83, calcium 9.2, iron is 37, TIBC 331, AST 36, ALT 42, albumin is 3.2. IMPRESSION AND PLAN: Right leg extensive deep venous thrombosis with some cellulitis, pulmonary embolism, intestinal obstruction requiring multiple surgeries, partial gastrectomy, B12 deficiency, iron deficiency, malnutrition, decubitus ulcer. Pulmonary point of view, doing okay. Continue anticoagulation, fall precaution. Elevate right lower extremity. Follow up H and H. Thank you and we will follow with you. Eber Ziegler MD
--- NOTE | 2017-11-23 02:35 | PN ---
DATE: SUBJECTIVE: Patient is a 47-year-old male. Patient is seen and examined on the bedside. Looking comfortable. No nausea, vomiting, or diarrhea. No hematuria or hematochezia. Had good bowel movement. No headache or dizziness. No chest pain. No palpitation. No fever. No chills. He is playing everyday his puzzle, looks comfortable. PHYSICAL EXAMINATION: VITAL SIGNS: Patient is afebrile, blood pressure 102/66, respiratory rate 20, oxygen saturation 98%, pulse 80. HEENT: Head normocephalic, atraumatic. Eyes: PERRLA. Extraocular muscles are intact. Conjunctivae clear. Nose patent. Mucous membranes are moist. NECK: Supple. No carotid bruits, JVD or thyromegaly. CHEST: Bilaterally symmetrical. HEART: S1, S2 positive. LUNGS: Clear to auscultation. ABDOMEN: Soft. Bowel sounds present. No organomegaly. EXTREMITIES: No edema. No cyanosis. NEUROLOGIC: The patient is awake and alert. Moving all four extremities. No focal deficits. MEDICATIONS: Bacitracin, Colace, Eliquis, folic acid, nystatin topical, Protonix, Reglan, Tylenol. LABORATORY DATA: White blood cells 7.5, hemoglobin 10.2, hematocrit 33.0, platelets 396. Sodium 134, potassium 4.6, BUN 22, creatinine 0.7, iron 37, saturation 11. ASSESSMENT AND PLAN: Mr. Sean Dee is a 47-year-old male with anemia; renal insufficiency, need more hydration; iron deficiency; seen by Gastroenterology, Dr. Cristiane Davies. Patient is mentally challenged, has cellulitis of the lower extremity, getting better; he has history of anastomotic stricture status post subtotal colectomy with ileosigmoid anastomosis, has a history of anastomotic ulceration, history of partial gastrectomy and gastroenterostomy. There was a fall of the hemoglobin. Patient has pulmonary emboli, started on Eliquis. Blood transfusion given. Need followup hemoglobin and hematocrit. Hemoglobin and hematocrit is improving. Patient is on pantoprazole, we will continue that; stool softener, we will continue that. Patient will get tapering dose of Reglan; per Dr. Davies, we will taper down to two to three times a day, then we will slowly take off one of the standard dose. Seen by Dr. Del Rosario, Infectious Disease. Dr. Peace's communication report appreciated. Dr. Ziegler saw the patient also. History of severe sepsis. Cellulitis of the leg is getting better. Deep vein thrombosis, also gastroesophageal reflux disease, distal colonic obstruction, anxiety, recurrent aspiration pneumonia. Patient has completed antibiotic therapy, now off the antibiotic treatment. We will continue present treatment, out of bed, physical therapy. We will follow up. Meme Rey MD
--- NOTE | 2017-11-23 04:32 | PN ---
DATE: 11/22/2016 SUBJECTIVE: This patient was seen and evaluated earlier today. Patient is tolerating the diet. No complaints of any abdominal pain. PHYSICAL EXAMINATION GENERAL: Temperature is 97.2, blood pressure 102/66, respirations 20, O2 saturation 98%. HEENT: Atraumatic, anicteric. NECK: Supple. HEART: S1 and S2. LUNGS: Bilateral air entry present. ABDOMEN: Soft. Multiple surgical scars seen. No tenderness. EXTREMITIES: Mild erythema present on the right leg. LABORATORY DATA: Hemoglobin 10.2, hematocrit 33, WBC 7.5, platelets 396. BUN 22, creatinine 0.7. IMPRESSION: 1. This 47-year-old patient,mentally challenged, admitted with cellulitis of the right lower extremity and deep venous thrombosis and pulmonary embolism. Presently, patient has anemia, status post 2 units of transfusion on Eliquis and hemoglobin has been stable on Protonix. We will continue that. 2. Patient does have anastomotic stricture status post subtotal colectomy with ileosigmoid anastomosis. Patient is having soft stools now, history of dilation done in the past. 3. Status post partial gastrectomy with gastroenterostomy. History of gastroparesis presently on pantoprazole and also on metoclopramide, on reducing dose. RECOMMENDATIONS: 1. Followup of the hemoglobin and hematocrit. 2. Followup of the PPI. Continue the proton Pantoprazole. 3. Continue the stool softeners. 4. Patient has been reduced to the dose of Reglan to 5 mg four times a day. The plan is to slowly taper off the dose and use it on short courses, to avoid its penitentiary side effects. 5. Continue the pureed food. Patient does have significant gastroparesis and also anastomotic strictures. It is reasonable to leave the patient on a pureed food. Thank you very much for allowing me to participate in the care of your patient. Cristiane Davies MD
--- NOTE | 2017-11-23 10:01 | PN ---
DATE: 11/21/2017 SUBJECTIVE: Patient is a 47-year-old male. Patient is seen and examined at the bedside, looking comfortable. No nausea, vomiting, or diarrhea. No hematuria or hematochezia. No swelling of the legs. No chest pain. No palpitations. No headache or dizziness. Tolerating food very well. PHYSICAL EXAMINATION: VITAL SIGNS: Temperature 98, pulse 70, respiratory rate 20, blood pressure 100/70, pulse oximetry 96% on room air. HEENT: Head normocephalic, atraumatic. Eyes PERRLA. Extraocular muscles are intact. Conjunctivae clear. Nose patent. Mucous membranes are moist. NECK: Supple. No carotid bruit. No JVD or thyromegaly. CHEST: Bilaterally symmetrical. HEART: S1 and S2 positive. LUNGS: Clear to auscultation. ABDOMEN: Soft. Bowel sounds present. No organomegaly. EXTREMITIES: No edema. No cyanosis. NEUROLOGIC: Patient is awake and alert. Moving all 4 extremities. No focal deficits. MEDICATIONS: Bacitracin, Colace, Eliquis, folic acid, Protonix, Reglan, and Tylenol. LABORATORY DATA: Hemoglobin 8.8, hematocrit is 27.9, white blood cells 4.9, platelets 291. Sodium 134, potassium 4.0, BUN 15, creatinine 0.7, calcium 8.7. ASSESSMENT AND PLAN: Mr. Estrada is a 47-year-old male with pulmonary embolism, right leg extensive deep vein thrombosis with cellulitis, history of intestinal obstruction, requiring multiple surgeries, history of partial gastrectomy, iron and B12 deficiency anemia, hyperalbuminemia, malnourishment, decubitus ulcer. Patient is doing better. Continue present treatment, physical therapy. Appreciated Dr. Peace's communication report. Biopsy from the is negative for malignant keratosis. Fall precautions. We will follow. Meme Rey MD MTDD
[2017-11-23] MEDS: Pantoprazole 40 mg EC Tab PO SCH ×2 (11:00→21:50)
[2017-11-23] MEDS: Bacitracin 500 Units/gm Oint Foilpak UD TOP SCH ×2 (11:00→17:40)
[2017-11-23] MEDS: Nystatin 100,000 Units/gm Topical Pow(15 gm) TOP SCH ×3 (11:00→17:40)
--- NOTE | 2017-11-23 12:29 | CP.PCM.PN ---
<Cristina Alford - Last Filed: 11/23/17 12:26> Subjective - Date & Time of Evaluation Date of Evaluation: 11/23/17 Time of Evaluation: 11:00 - Subjective Subjective: Chief complaint: L & R leg pain 47 yr male w/ history of intellectual disability, anemia, GERD, aspiration pneumonia, multiple abdominal surgeries, perforation of stomach, anxiety, recurrent pneumonia, & chronic constipation. Today seen in activity room, completing puzzles. Continues to reports R and L leg pain. Weeping skin noted on pt R leg. Pt is a poor historian due to his mental disability. Denies any fever, chills, chest pain, shortness of breath, abdominal pain, nausea, vomiting or urinary problems. Objective - Vital Signs/Intake and Output Vital Signs (last 24 hours): Temp Pulse Resp BP Pulse Ox 98.2 F 104 H 20 106/57 L 98 11/23/17 10:00 11/23/17 10:00 11/23/17 10:00 11/23/17 10:00 11/23/17 10:00 Intake and Output: 11/23/17 11/23/17 06:59 18:59 Intake Total 360 Balance 360 - Medications Medications: Current Medications Acetaminophen (Tylenol 325mg Tab) 650 mg PO TID PRN; Protocol PRN Reason: Pain, Mild (1-3) Last Admin: 11/20/17 10:09 Dose: 650 mg Apixaban (Eliquis) 10 mg PO Q12H [facility] PRN Reason: Protocol Last Admin: 11/23/17 07:59 Dose: 10 mg Bacitracin (Bacitracin) 2 ea TOP BID [facility] Last Admin: 11/23/17 11:00 Dose: 2 ea Docusate Sodium (Colace) 100 mg PO BID [facility] Last Admin: 11/23/17 11:00 Dose: Not Given Folic Acid (Folic Acid) 1 mg PO DAILY [facility] PRN Reason: Protocol Last Admin: 11/23/17 11:00 Dose: 1 mg Metoclopramide HCl (Reglan) 5 mg PO 0630,1200,1700,2200 [facility] PRN Reason: Protocol Last Admin: 11/23/17 12:10 Dose: 5 mg Nystatin (Nystop Topical Powder) 0 gm TOP TID [facility] PRN Reason: Protocol Last Admin: 11/23/17 11:00 Dose: 1 applic Pantoprazole Sodium (Protonix Ec Tab) 40 mg PO 1000,2200 [facility] PRN Reason: Protocol Last Admin: 11/23/17 11:00 Dose: 40 mg - Labs Labs: 11/22/17 07:00 11/22/17 07:00 - Constitutional Appears: Chronically Ill - Head Exam Head Exam: ATRAUMATIC, NORMAL INSPECTION, NORMOCEPHALIC Additional comments: R cheek lesion, crusting, biopsy done. c/d/i biopsy of cheek lesion NEGATIVE. - Eye Exam Eye Exam: EOMI, Normal appearance, PERRL Pupil Exam: NORMAL ACCOMODATION, PERRL - ENT Exam ENT Exam: Mucous Membranes Moist, Normal Exam - Neck Exam Neck Exam: Full ROM, Normal Inspection. absent: Lymphadenopathy - Respiratory Exam Respiratory Exam: Clear to Ausculation Bilateral, NORMAL BREATHING PATTERN - Cardiovascular Exam Cardiovascular Exam: REGULAR RHYTHM, +S1, +S2. absent: Murmur - GI/Abdominal Exam GI & Abdominal Exam: Soft, Normal Bowel Sounds. absent: Tenderness - Extremities Exam Extremities Exam: Tenderness Additional comments: R leg erythema, edema +2, weeping. dressing saturated, sero-sangineous drainage - Back Exam Back Exam: NORMAL INSPECTION - Neurological Exam Neurological Exam: Alert, Awake, Oriented x3 - Psychiatric Exam Psychiatric exam: Normal Affect, Normal Mood - Skin Skin Exam: Dry, Intact, Normal Color, Warm Assessment and Plan (1) Cellulitis Status: Acute (2) Anemia Status: Acute (3) Colonic obstruction Status: Acute (4) DVT (deep venous thrombosis) Status: Acute (5) Dehydration Status: Acute (6) Pulmonary embolism Status: Acute (7) Small bowel obstruction Status: Acute (8) Mentally disabled Status: Chronic (9) Actinic keratosis of right cheek Status: Acute - Assessment and Plan (Free Text) Plan: R leg condition is worsening. Consulted Wound care & Podiatry. R leg cellulitis treatment w/ topical abx per ID. Continue PT & OT. Tolerating diet. Pt & his sister do not want colonic dilation. EGD/flexsig on hold per family request. H/ H stablized. s/p 2 unit of PRBC. Discontinued IVC filter placement, treatment w / eliquis on board. Pain management: tylenol prn Consults: Pulmonary - Dr. Ziegler ID - Dr. Del Rosario IR - Dr. Chloe Easley GI - Dr. Davies Surgery - Dr. Brown Henson Hemo/Onc - Dr. Murillo Podiatry - Dr. Wilson Wound Care - Reviewed: CXR = WNL R lower ext US = R extensive iliofemoral DVT ECG = NSR CTA chest/abd/pelvis = distal colonic obstruction w/ severe dilation of the proximal colon. the transition point is seen in rectosigmoid. very small bilateral pulmonary emboli CT chest = VQ scan = low probability for pulmonary emboli <Meme Rey - Last Filed: 11/24/17 08:51> Objective - Vital Signs/Intake and Output Vital Signs (last 24 hours): Temp Pulse Resp BP Pulse Ox 97.8 F 94 H 18 100/66 96 11/23/17 17:41 11/23/17 17:41 11/23/17 17:41 11/23/17 17:41 11/23/17 17:41 - Medications Medications: Current Medications Acetaminophen (Tylenol 325mg Tab) 650 mg PO TID PRN; Protocol PRN Reason: Pain, Mild (1-3) Last Admin: 11/20/17 10:09 Dose: 650 mg Apixaban (Eliquis) 10 mg PO Q12H [facility] PRN Reason: Protocol Last Admin: 11/24/17 08:03 Dose: 10 mg Bacitracin (Bacitracin) 2 ea TOP BID [facility] Last Admin: 11/23/17 17:40 Dose: 2 ea Docusate Sodium (Colace) 100 mg PO BID [facility] Last Admin: 11/23/17 17:39 Dose: Not Given Folic Acid (Folic Acid) 1 mg PO DAILY [facility] PRN Reason: Protocol Last Admin: 11/23/17 11:00 Dose: 1 mg Metoclopramide HCl (Reglan) 5 mg PO 0630,1200,1700,2200 [facility] PRN Reason: Protocol Last Admin: 11/24/17 05:36 Dose: 5 mg Nystatin (Nystop Topical Powder) 0 gm TOP TID [facility] PRN Reason: Protocol Last Admin: 11/23/17 17:40 Dose: 1 applic Pantoprazole Sodium (Protonix Ec Tab) 40 mg PO 1000,2200 [facility] PRN Reason: Protocol Last Admin: 11/23/17 21:50 Dose: 40 mg - Labs Labs: 11/22/17 07:00 11/22/17 07:00 Assessment and Plan - Assessment and Plan (Free Text) Plan: 47 yr male w/ history of intellectual disability, anemia, GERD, aspiration pneumonia, multiple abdominal surgeries, perforation of stomach, anxiety, recurrent pneumonia, & chronic constipation. Today seen in activity room, completing puzzles. Continues to reports R and L leg pain. Weeping skin noted on pt R leg. Pt is a poor historian due to his mental disability. Denies any fever, chills, chest pain, shortness of breath, abdominal pain, nausea, vomiting or urinary problems.pt is seen and examined at bed side . looking comfortable / getting pt . ot will f/u , agreed all above
[2017-11-23 17:41] VITALS: RESP 18; O2SAT 96
--- NOTE | 2017-11-23 21:16 | CP.PCM.PN ---
Subjective - Date & Time of Evaluation Date of Evaluation: 11/23/17 Time of Evaluation: 10:45 - Subjective Subjective: Comfortable, afebrile, not in distress. Objective - Vital Signs/Intake and Output Vital Signs (last 24 hours): Temp Pulse Resp BP Pulse Ox 97.8 F 94 H 18 100/66 96 11/23/17 17:41 11/23/17 17:41 11/23/17 17:41 11/23/17 17:41 11/23/17 17:41 - Medications Medications: Current Medications Acetaminophen (Tylenol 325mg Tab) 650 mg PO TID PRN; Protocol PRN Reason: Pain, Mild (1-3) Last Admin: 11/20/17 10:09 Dose: 650 mg Apixaban (Eliquis) 10 mg PO Q12H [facility] PRN Reason: Protocol Last Admin: 11/23/17 07:59 Dose: 10 mg Bacitracin (Bacitracin) 2 ea TOP BID [facility] Last Admin: 11/23/17 17:40 Dose: 2 ea Docusate Sodium (Colace) 100 mg PO BID [facility] Last Admin: 11/23/17 17:39 Dose: Not Given Folic Acid (Folic Acid) 1 mg PO DAILY [facility] PRN Reason: Protocol Last Admin: 11/23/17 11:00 Dose: 1 mg Metoclopramide HCl (Reglan) 5 mg PO 0630,1200,1700,2200 [facility] PRN Reason: Protocol Last Admin: 11/23/17 17:39 Dose: 5 mg Nystatin (Nystop Topical Powder) 0 gm TOP TID [facility] PRN Reason: Protocol Last Admin: 11/23/17 17:40 Dose: 1 applic Pantoprazole Sodium (Protonix Ec Tab) 40 mg PO 1000,2200 [facility] PRN Reason: Protocol Last Admin: 11/23/17 11:00 Dose: 40 mg - Labs Labs: 11/22/17 07:00 11/22/17 07:00 - Constitutional Appears: Non-toxic - Head Exam Head Exam: NORMAL INSPECTION - Respiratory Exam Respiratory Exam: Decreased Breath Sounds - Cardiovascular Exam Cardiovascular Exam: +S1, +S2 - GI/Abdominal Exam GI & Abdominal Exam: Soft. absent: Tenderness Assessment and Plan - Assessment and Plan (Free Text) Plan: Assessment S/P Severe sepsis due to right leg cellulitis with associated DVT distal colonic obstruction GERD chronic anemia anxiety history of SBO history of recurrent pneumonia Plan completed course of systemic antibiotics - continue to monitor off antibiotics since he is at risk for nosocomial infections
--- NOTE | 2017-11-23 22:02 | PN ---
DATE: 11/23/2017 SUBJECTIVE: This patient was seen and evaluated earlier today. Patient is tolerating the diet. No complaints of any abdominal pain. PHYSICAL EXAMINATION: GENERAL: Temperature is 98.2, pulse 104, blood pressure is 106/57. HEENT: Atraumatic, anicteric. NECK: Supple. HEART: S1 and S2 heard. LUNGS: Bilateral air entry present. ABDOMEN: Soft. EXTREMITIES: Mild erythema of right leg is improving. LABORATORY DATA: There are no recent labs today. Yesterday, on labs, hemoglobin was stable. IMPRESSION: 1. This is a 47-year-old patient, mentally challenged, admitted with cellulitis of the right lower extremity, deep venous thrombosis and pulmonary embolism, has anemia, status post 2 units of transfusion, on Eliquis. Hemoglobin is stable now. Patient is also on Protonix, we will continue that. 2. He has a history of anastomotic stricture and erosions at the anastomotic site. Patient had a history of dilation done in the past. Presently semi-soft stool. No obstruction now. We will follow up on that. 3. Status post partial gastrectomy, gastroenterostomy, gastroparesis, on low-dose Reglan. We will slowly titrate the dose down further. RECOMMENDATIONS: 1. Followup of the hemoglobin and hematocrit. 2. Continue the PPI. 3. Continue the stool softeners. Slowly titrate the dose of the Reglan down and wean off and use the Reglan only short courses to avoid the long-term sequelae. Thank you very much for allowing me to participate in the care of your patient. Cristiane Davies MD
--- NOTE | 2017-11-24 00:01 | PN ---
DATE: 11/23/2017 PULMONARY PROGRESS NOTE REFERRING PHYSICIAN: Meme Rey MD. SUBJECTIVE: The patient is sitting in the common room, doing the puzzles. Night was unremarkable. No headache. No rhinitis. No nausea. No vomiting. Still has right leg swelling and pain. OBJECTIVE: GENERAL: In no acute distress. VITAL SIGNS: Temperature is 98, heart rate is 94, respiratory rate is 20, blood pressure 100/66, pulse ox of 96% on room air. HEENT: Moist mucous membranes. No ulcer or thrush noted. NECK: Supple. No JVD. LUNGS: Have fair airflow with rhonchi. HEART: S1 and S2. ABDOMEN: Soft, nontender. No organomegaly. EXTREMITIES: There is right leg edema and swelling with tenderness. NEUROLOGIC: Awake and alert. Follows simple command. MEDICATIONS: He is on Bactroban at affected area twice a day, Colace 100 mg twice a day, Eliquis 10 mg twice a day, folic acid 1 mg daily, Protonix 40 mg twice a day, Reglan 5 mg four times a day, Tylenol p.r.n. basis. LABORATORY DATA: Reviewed. No new lab is available since yesterday. IMPRESSION AND PLAN: Right leg extensive deep venous thrombosis with probably some cellulitis, history of also a pulmonary embolism, intestinal obstruction in the past requiring multiple surgeries, history of partial gastrectomy, vitamin B12 deficiency, iron deficiency, malnutrition, decubitus ulcer. Pulmonary point of view, doing okay. Continue anticoagulation, bronchodilator, gastric prophylaxis, fall precaution. Elevate right lower extremity. Continue therapy. Thank you and we will follow with you. Eber Ziegler MD
[2017-11-24] MEDS: Nystatin 100,000 Units/gm Topical Pow(15 gm) TOP SCH ×3 (11:00→18:16)
[2017-11-24] MEDS: Pantoprazole 40 mg EC Tab PO SCH ×2 (11:00→21:02)
[2017-11-24] MEDS: Bacitracin 500 Units/gm Oint Foilpak UD TOP SCH ×2 (11:00→18:17)
[2017-11-24 11:43] VITALS: BP 101/65; PULSE 99; TEMP 97.2
--- NOTE | 2017-11-24 15:14 | CP.PCM.CON ---
<Dat Bocanegra - Last Filed: 11/24/17 15:11> History of Present Illness - History of Present Illness History of Present Illness: 47 year old male patient with PMHx of GERD, perforated ulcers, SBOs, anemia, mentally disabled was seen and evaluated at bedside for bilateral leg erythema and edema. Patient is a poor historian and does not answer to the questions asked properly. Patient responds to the verbal commands well. Patient was seen playing a puzzle in the recreational area in TCU. Patient is in NAD currently and appears well. PMHx: GERD, perforated ulcers, SBOs, anemia, mentally disabled PSHx: multiple abdominal surgeries for ulcer perforation & SBO SHx: lives with family, no smoking/EtOH Allergies: NKDA Review of Systems - Constitutional Constitutional: As Per HPI Past Patient History - Infectious Disease Hx of Infectious Diseases: None - Tetanus Immunizations Tetanus Immunization: Unknown - Past Social History Smoking Status: Never Smoked - CARDIAC Hx Cardiac Disorders: Yes - PULMONARY Hx Respiratory Disorders: Yes Other/Comment: aspiration pneumonia - NEUROLOGICAL Hx Paralysis: No - HEENT Hx HEENT Problems: No - RENAL Hx Chronic Kidney Disease: No - ENDOCRINE/METABOLIC Hx Endocrine Disorders: No - HEMATOLOGICAL/ONCOLOGICAL Hx Blood Transfusions: No Hx Blood Transfusion Reaction: No - INTEGUMENTARY Hx Dermatological Problems: Yes Other/Comment: MULTIPLE SCARRING TO ABDOMINAL AREA FROM MULTIPLE ABDOMINAL SURGERIES - MUSCULOSKELETAL/RHEUMATOLOGICAL Hx Falls: Yes - GASTROINTESTINAL Hx Gastrointestinal Disorders: Yes - GENITOURINARY/GYNECOLOGICAL Hx Genitourinary Disorders: No Hx Reproductive Disorders: No - PSYCHIATRIC Hx Emotional Abuse: No Hx Physical Abuse: No Hx Substance Use: No - SURGICAL HISTORY Hx Surgeries: Yes - ANESTHESIA Hx Anesthesia Reactions: No Hx Malignant Hyperthermia: No Meds Allergies/Adverse Reactions: Allergies Allergy/AdvReac Type Severity Reaction Status Date / Time No Known Allergies Allergy Verified 11/19/17 23:07 - Medications Medications: Current Medications Acetaminophen (Tylenol 325mg Tab) 650 mg PO TID PRN; Protocol PRN Reason: Pain, Mild (1-3) Last Admin: 11/20/17 10:09 Dose: 650 mg Apixaban (Eliquis) 10 mg PO Q12H [facility] PRN Reason: Protocol Last Admin: 11/24/17 08:03 Dose: 10 mg Bacitracin (Bacitracin) 2 ea TOP BID [facility] Last Admin: 11/24/17 11:00 Dose: 2 ea Docusate Sodium (Colace) 100 mg PO BID [facility] Last Admin: 11/24/17 11:00 Dose: 100 mg Folic Acid (Folic Acid) 1 mg PO DAILY [facility] PRN Reason: Protocol Last Admin: 11/24/17 11:00 Dose: 1 mg Metoclopramide HCl (Reglan) 5 mg PO 0630,1630 [facility] PRN Reason: Protocol Nystatin (Nystop Topical Powder) 0 gm TOP TID [facility] PRN Reason: Protocol Last Admin: 11/24/17 14:12 Dose: Not Given Pantoprazole Sodium (Protonix Ec Tab) 40 mg PO 1000,2200 [facility] PRN Reason: Protocol Last Admin: 11/24/17 11:00 Dose: 40 mg Physical Exam - Constitutional Appears: Well, Non-toxic, No Acute Distress - Extremities Exam Additional comments: Bilateral LE exam: VASC: DP/PT pulses are faintly palpable 1/4 b/l, Cap refill time: < 3 sec to all digits, Temp gradient: warm to cool from proximal to distal, +1 Pitting edema noted on the medial leg b/l DERM: wound measuring approximately 0.3 cm x 0.3 cm x 0.1 cm noted on the distal medial aspect of the right calf, mild active serous drainage noted from the wound with surrounding no erythema which extends from the ankle to the mid leg bilaterally (R>L), no tunneling, no undermining, no clinical suspicion of active infection, superficial hyperkeratotic skin appears to be sloughing off on the left foot, no interdigital maceration NEURO: Protective sensation mildly diminished ORTHO: no pain on active and passive ROM at the ankle joint, no pain on palpation of the wound, no pain on palpation of the bilateral calf - Neurological Exam Neurological exam: Alert, Oriented x3 - Psychiatric Exam Psychiatric exam: Normal Affect, Normal Mood Results - Vital Signs Recent Vital Signs: Last Vital Signs Temp 97.2 F L 11/24/17 11:42 Pulse 99 H 11/24/17 11:42 Resp 18 11/24/17 11:42 BP 101/65 11/24/17 11:42 Pulse Ox 96 11/24/17 11:42 - Labs Result Diagrams: 11/22/17 07:00 11/22/17 07:00 Assessment & Plan - Assessment and Plan (Free Text) Assessment: 47 year old male patient with PMHx of GERD, perforated ulcers, SBOs, anemia, mentally disabled was evaluated at bedside for bilateral leg erythema and edema. Plan: Patient seen and evaluated with attending Dr. Wilson Labs, vitals and charts reviewed - afebrile, no leukocytosis Venous duplex and lung nuclear studies reviewed Wound cleaned with sterile saline and dressing applied to the right leg using ABD, 4x4, DSD and BRIANNA Lac-hydrin cream ordered IV abx as per ID Podiatry will follow patient while in-house Thank you for the podiatry consult - Date & Time Date: 11/24/17 Time: 15:28 <Marlon Wilson - Last Filed: 11/24/17 16:12> Meds - Medications Medications: Current Medications Acetaminophen (Tylenol 325mg Tab) 650 mg PO TID PRN; Protocol PRN Reason: Pain, Mild (1-3) Last Admin: 11/20/17 10:09 Dose: 650 mg Apixaban (Eliquis) 10 mg PO Q12H [facility] PRN Reason: Protocol Last Admin: 11/24/17 08:03 Dose: 10 mg Bacitracin (Bacitracin) 2 ea TOP BID [facility] Last Admin: 11/24/17 11:00 Dose: 2 ea Docusate Sodium (Colace) 100 mg PO BID [facility] Last Admin: 11/24/17 11:00 Dose: 100 mg Folic Acid (Folic Acid) 1 mg PO DAILY [facility] PRN Reason: Protocol Last Admin: 11/24/17 11:00 Dose: 1 mg Metoclopramide HCl (Reglan) 5 mg PO 0630,1630 [facility] PRN Reason: Protocol Nystatin (Nystop Topical Powder) 0 gm TOP TID [facility] PRN Reason: Protocol Last Admin: 11/24/17 14:12 Dose: Not Given Pantoprazole Sodium (Protonix Ec Tab) 40 mg PO 1000,2200 [facility] PRN Reason: Protocol Last Admin: 11/24/17 11:00 Dose: 40 mg Results - Vital Signs Recent Vital Signs: Last Vital Signs Temp 97.2 F L 11/24/17 11:42 Pulse 99 H 11/24/17 11:42 Resp 18 11/24/17 11:42 BP 101/65 11/24/17 11:42 Pulse Ox 96 02/13/18 11:42 - Labs Result Diagrams: 11/22/17 07:00 11/22/17 07:00 Attending/Attestation - Attestation I have personally seen and examined this patient.: Yes I have fully participated in the care of the patient.: Yes I have reviewed all pertinent clinical information: Yes
--- NOTE | 2017-11-25 01:19 | PN ---
PULMONARY PROGRESS NOTE DATE: 11/24/2017 REFERRING PHYSICIAN: Meme Rey MD SUBJECTIVE: The patient is in the common room, working with the [employer]. Night was unremarkable. No headache. No rhinitis. No nausea. No vomiting. No diarrhea. Still has right leg swelling and tenderness. OBJECTIVE: GENERAL: In no acute distress. VITAL SIGNS: Temperature is 98, heart rate is 99, respiratory rate is 20, blood pressure 101/65, pulse ox 96% on room air. HEENT: Moist mucous membrane. Crowded airway. NECK: Supple. No JVD. LUNGS: Have fair airflow with rhonchi. HEART: S1 and S2. ABDOMEN: Soft and nontender. No organomegaly. EXTREMITIES: Right leg still swollen, tender to touch. NEUROLOGIC: Awake, alert, follows simple commands. MEDICATIONS: He is on bacitracin ointment to affected area twice a day, Colace 100 mg twice a day, Eliquis 10 mg q. 12 hours, folic acid 1 mg daily, Protonix 40 mg twice a day, Reglan 5 mg twice a day, Tylenol on p.r.n. basis. LABORATORY DATA: Shows hemoglobin 10.2, hematocrit 33.0, WBC 7.5, platelets 396. IMPRESSION AND PLAN: Right leg extensive deep vein thrombosis with some cellulitis; pulmonary embolism; intestinal obstruction in the remote past requiring multiple surgeries; partial gastrectomy in the past; vitamin B12 deficiency; iron deficiency; malnutrition; decubitus ulcer. Pulmonary point of view, doing okay. Continue anticoagulation. Keep head at 45 degrees. Elevate right lower extremity. Fall precaution. Gastric prophylaxis. Continue therapy. Thank you, and we will follow with you. Eber Ziegler MD
--- NOTE | 2017-11-25 04:32 | PN ---
DATE: SUBJECTIVE: The patient is seen in bed, in no acute distress, nontoxic, was seen earlier this morning in room 303. PHYSICAL EXAMINATION: VITAL SIGNS: Temperature of 97, blood pressure is 101/60, respiratory rate of 16. HEENT: Unremarkable. NECK: Supple. LUNGS: Have decreased breath sounds. HEART: Normal S1 and S2. ABDOMEN: Soft, nontender. LABORATORY DATA: Reveals a white count of 7.5, hemoglobin of 10, platelets of 396. Chemistries reveals a BUN of 22, creatinine of 0.7. Microbiology reveals the patient has stool for C. diff antigen negative antigen, negative toxin. ASSESSMENT AND PLAN: This is a 47-year-old male, was seen earlier this morning, was admitted initially with severe sepsis, right leg cellulitis, deep vein thrombosis, gastroesophageal reflux disease and distal colonic obstruction, and chronic anemia and anxiety, and currently the patient is off of antibiotics; however, there is a risk for developing nosocomial infections. We will follow closely with you. Antwan Del Rosario MD
[2017-11-25 08:06] LABS: BASO # 0.03 K/mm3 (0.0-2.0); BASO % 0.8 % (0.0-3.0); EOS # 0.2 (0.0-0.7); GRAN # 2.39 (1.4-6.5); GRAN % 59.7 % (50.0-68.0); LYMPH # 0.8 (1.2-3.4); LYMPH % 20.5 % (22.0-35.0); MEAN CELL VOLUME 89.9 fl (80.0-105.0); MEAN CORPUSCULAR HEMOGLOBIN 27.9 pg (25.0-35.0); MEAN PLATELET VOLUME 9.2 fl (7.0-11.0); MONO # 0.6 (0.1-0.6); RBC 2.87 10^6/uL (3.5-6.1); RED CELL DISTRIBUTION WIDTH 16.7 % (11.5-14.5)
[2017-11-25 08:25] LABS: BLOOD UREA NITROGEN 17 mg/dL (7-21); CALCIUM 8.3 mg/dL (8.4-10.5); GFR AFRICAN-AMERICAN > 60; GFR NON-AFRICAN AMERICAN > 60
--- NOTE | 2017-11-25 09:37 | PN ---
DATE: 11/24/2017 SUBJECTIVE: The patient is a 47-year-old male. The patient is seen and examined on the bedside, looking comfortable. No nausea, vomiting, or diarrhea. No hematuria or hematochezia. No headache, no dizziness. No chest pain or palpitation. Still has ulceration on the right leg, getting IV antibiotics. Appetite is appropriate. Sleep is okay. No fever, no chills. PHYSICAL EXAMINATION VITAL SIGNS: Temperature 97.2, pulse 99, blood pressure 101/65, respiratory rate 18. HEENT: Head: Normocephalic, atraumatic. Eyes: PERRLA. Extraocular movements are intact. Conjunctivae clear. Nose patent. Mucous membranes are moist. NECK: Supple. No carotid bruits, JVD, or thyromegaly. CHEST: Bilaterally symmetrical. HEART: S1, S2 positive. LUNGS: Clear to auscultation. ABDOMEN: Soft. Bowel sounds are present. No organomegaly. EXTREMITIES: No edema. No cyanosis, upper extremities. Right lower leg is red, warm and has dressing. NEUROLOGIC: The patient is awake, alert. Moving all 4 extremities. Obeying simple orders. MEDICATIONS: Bacitracin, Colace, Eliquis, folic acid, nystatin, Protonix, Reglan, Tylenol. LABORATORY DATA: White blood cell 7.4, hemoglobin 10.2, hematocrit 33, platelets 396. Sodium 137, potassium 4.6, BUN 22, creatinine 0.7, glucose 83. ASSESSMENT AND PLAN: is a 47-year-old male with anemia, renal insufficiency, iron deficiency, history of gastroesophageal reflux disease, dyspepsia, perforated ulcers, mentally challenged, has leg swelling and edema, seen by Podiatry, history of small bowel obstruction, history of pulmonary embolism and deep venous thrombosis, wound cleaned with sterile saline. Dressing applied to the right leg. Using ABD, 4x4, Flore[place]io bandage, starting IV antibiotics, physical therapy. We will follow up. Meme Rey MD
--- NOTE | 2017-11-25 10:10 | CP.PCM.PN ---
Subjective - Date & Time of Evaluation Date of Evaluation: 11/24/17 Time of Evaluation: 18:00 - Subjective Subjective: Comfortable in bed. Communicative. denies right leg pain. No chest pain, shortness of breath. Objective - Vital Signs/Intake and Output Vital Signs (last 24 hours): Temp Pulse Resp BP Pulse Ox 97.2 F L 99 H 18 101/65 96 11/24/17 11:42 11/24/17 11:42 11/24/17 11:42 11/24/17 11:42 11/24/17 11:42 Intake and Output: 11/25/17 11/25/17 06:59 18:59 Intake Total 360 Balance 360 - Medications Medications: Current Medications Acetaminophen (Tylenol 325mg Tab) 650 mg PO TID PRN; Protocol PRN Reason: Pain, Mild (1-3) Last Admin: 11/20/17 10:09 Dose: 650 mg Apixaban (Eliquis) 10 mg PO Q12H EHTAN PRN Reason: Protocol Last Admin: 11/25/17 08:30 Dose: 10 mg Bacitracin (Bacitracin) 2 ea TOP BID ETHAN Last Admin: 11/24/17 18:17 Dose: 2 ea Docusate Sodium (Colace) 100 mg PO BID ETHAN Last Admin: 11/24/17 18:18 Dose: 100 mg Doxycycline Hyclate (Doryx) 100 mg PO Q12 ETHAN PRN Reason: Protocol Folic Acid (Folic Acid) 1 mg PO DAILY ETHAN PRN Reason: Protocol Last Admin: 11/24/17 11:00 Dose: 1 mg Metoclopramide HCl (Reglan) 5 mg PO 0630,1630 ETHAN PRN Reason: Protocol Last Admin: 11/25/17 05:04 Dose: 5 mg Nystatin (Nystop Topical Powder) 0 gm TOP TID ETHAN PRN Reason: Protocol Last Admin: 11/24/17 18:16 Dose: 1 applic Pantoprazole Sodium (Protonix Ec Tab) 40 mg PO 1000,2200 ETHAN PRN Reason: Protocol Last Admin: 11/24/17 21:02 Dose: 40 mg - Labs Labs: 11/25/17 07:30 11/25/17 07:30 - Constitutional Appears: Well, Non-toxic - Head Exam Head Exam: ATRAUMATIC, NORMAL INSPECTION, NORMOCEPHALIC - Eye Exam Eye Exam: Normal appearance - ENT Exam ENT Exam: Mucous Membranes Moist - Neck Exam Neck Exam: Normal Inspection - Cardiovascular Exam Cardiovascular Exam: REGULAR RHYTHM, +S1, +S2 - GI/Abdominal Exam GI & Abdominal Exam: Soft, Normal Bowel Sounds - Back Exam Back Exam: NORMAL INSPECTION - Neurological Exam Neurological Exam: Alert, Awake, Normal Gait, Oriented x3 - Skin Skin Exam: Normal Color, Warm Assessment and Plan - Assessment and Plan (Free Text) Assessment: 1. DVT : right leg : Eliquis, change to 5 mg PO BID. 2. Anemia : occult GI bleed. Hb/hct stable. CBC am. 3. Right leg swelling , pain resolved. 4. Ambulating : limited 5. Renal : stable renal functions.
[2017-11-25] MEDS: Bacitracin 500 Units/gm Oint Foilpak UD TOP SCH (10:26)
[2017-11-25] MEDS: Nystatin 100,000 Units/gm Topical Pow(15 gm) TOP SCH ×2 (10:29→14:24)
[2017-11-25] MEDS: Pantoprazole 40 mg EC Tab PO SCH (10:29)
[2017-11-25 10:41] LABS: BASO # 0.04 K/mm3 (0.0-2.0); BASO % 0.9 % (0.0-3.0); EOS # 0.1 (0.0-0.7); EOS % 3.3 % (1.5-5.0); GRAN # 2.74 (1.4-6.5); GRAN % 64.2 % (50.0-68.0); HEMOGLOBIN 7.9 g/dL (14.0-18.0); LYMPH # 0.8 (1.2-3.4); LYMPH % 18.7 % (22.0-35.0); MEAN CORPUSCULAR HEMOGLOBIN 28.3 pg (25.0-35.0); MEAN CORPUSCULAR HGB CONC 31.5 g/dl (31.0-37.0); MONO # 0.6 (0.1-0.6); MONO % 12.9 % (1.0-6.0); RBC 2.79 10^6/uL (3.5-6.1); RED CELL DISTRIBUTION WIDTH 16.6 % (11.5-14.5); WHITE BLOOD COUNT 4.3 10^3/ul (4.5-11.0)
--- NOTE | 2017-11-25 11:31 | CP.PCM.PN ---
Subjective - Date & Time of Evaluation Date of Evaluation: 11/25/17 Time of Evaluation: 11:28 - Subjective Subjective: 47 year old male patient with PMHx of GERD, perforated ulcers, SBOs, anemia, mentally disabled was seen and evaluated at bedside for bilateral leg erythema and edema. Patient is a poor historian and does not answer to the questions asked properly. Patient responds to the commands well. Objective - Vital Signs/Intake and Output Vital Signs (last 24 hours): Temp Pulse Resp BP Pulse Ox 97.2 F L 99 H 18 101/65 96 11/24/17 11:42 11/24/17 11:42 11/24/17 11:42 11/24/17 11:42 11/24/17 11:42 Intake and Output: 11/25/17 11/25/17 06:59 18:59 Intake Total 360 Balance 360 - Medications Medications: Current Medications Acetaminophen (Tylenol 325mg Tab) 650 mg PO TID PRN; Protocol PRN Reason: Pain, Mild (1-3) Last Admin: 11/20/17 10:09 Dose: 650 mg Bacitracin (Bacitracin) 2 ea TOP BID ETHAN Last Admin: 11/25/17 10:26 Dose: 2 ea Docusate Sodium (Colace) 100 mg PO BID ETHAN Last Admin: 11/25/17 10:27 Dose: Not Given Doxycycline Hyclate (Doryx) 100 mg PO Q12 ETHAN PRN Reason: Protocol Last Admin: 11/25/17 10:27 Dose: 100 mg Folic Acid (Folic Acid) 1 mg PO DAILY ETHNA PRN Reason: Protocol Last Admin: 11/25/17 10:28 Dose: 1 mg Metoclopramide HCl (Reglan) 5 mg PO 0630,1630 ETHAN PRN Reason: Protocol Last Admin: 11/25/17 05:04 Dose: 5 mg Nystatin (Nystop Topical Powder) 0 gm TOP TID ETHAN PRN Reason: Protocol Last Admin: 11/25/17 10:29 Dose: 1 applic Pantoprazole Sodium (Protonix Ec Tab) 40 mg PO 1000,2200 ETHAN PRN Reason: Protocol Last Admin: 11/25/17 10:29 Dose: 40 mg - Labs Labs: 11/25/17 10:30 11/25/17 07:30 - Constitutional Appears: Well, Non-toxic, No Acute Distress - Extremities Exam Additional comments: Bilateral LE exam: VASC: DP/PT pulses are faintly palpable 1/4 b/l, Cap refill time: < 3 sec to all digits, Temp gradient: warm to cool from proximal to distal, +1 Pitting edema noted on the medial leg b/l DERM: wound measuring approximately 0.3 cm x 0.3 cm x 0.1 cm noted on the distal medial aspect of the right calf, mild active serous drainage noted from the wound with surrounding no erythema which extends from the ankle to the mid leg bilaterally (R>L) - erythema appears to be resolving and appears less than yesterday, no tunneling, no undermining, no clinical suspicion of active infection, superficial hyperkeratotic skin appears to be sloughing off on the left foot, no interdigital maceration NEURO: Protective sensation mildly diminished ORTHO: no pain on active and passive ROM at the ankle joint, no pain on palpation of the wound, no pain on palpation of the bilateral calf - Neurological Exam Neurological Exam: Alert, Awake, Oriented x3 - Psychiatric Exam Psychiatric exam: Normal Affect, Normal Mood Assessment and Plan - Assessment and Plan (Free Text) Assessment: 47 year old male patient with PMHx of GERD, perforated ulcers, SBOs, anemia, mentally disabled was evaluated at bedside for bilateral leg cellulitis and right leg wound. Plan: Patient seen and evaluated with attending Dr. Perez Labs, vitals and charts reviewed - afebrile, no leukocytosis Venous duplex and lung nuclear studies reviewed Wound cleaned with sterile saline and dressing applied to the right leg using Maxorb, ABD, 4x4, DSD and BRIANNA Lac-hydrin cream to be applied to bilateral feet Cx taken from the right leg wound IV abx as per ID Podiatry will follow patient while in-house Thank you for the podiatry consult
--- NOTE | 2017-11-25 12:26 | CP.PCM.PN ---
<Samantha Waldron - Last Filed: 11/25/17 12:25> Subjective - Date & Time of Evaluation Date of Evaluation: 11/25/17 Time of Evaluation: 10:15 - Subjective Subjective: Seen and examined earlier today, chart reviewed. Patient tolerating diet, no reports or patient complains of nausea, vomiting, or abdominal pain. Patient had large liquid brown BM this morning. No reports of bleeding. Objective - Vital Signs/Intake and Output Vital Signs (last 24 hours): Temp Pulse Resp BP Pulse Ox 97.2 F L 99 H 18 101/65 96 11/24/17 11:42 11/24/17 11:42 11/24/17 11:42 11/24/17 11:42 11/24/17 11:42 Intake and Output: 11/25/17 11/25/17 06:59 18:59 Intake Total 360 Balance 360 - Medications Medications: Current Medications Acetaminophen (Tylenol 325mg Tab) 650 mg PO TID PRN; Protocol PRN Reason: Pain, Mild (1-3) Last Admin: 11/20/17 10:09 Dose: 650 mg Bacitracin (Bacitracin) 2 ea TOP BID ETHAN Last Admin: 11/25/17 10:26 Dose: 2 ea Docusate Sodium (Colace) 100 mg PO BID ETHAN Last Admin: 11/25/17 10:27 Dose: Not Given Doxycycline Hyclate (Doryx) 100 mg PO Q12 ETHAN PRN Reason: Protocol Last Admin: 11/25/17 10:27 Dose: 100 mg Folic Acid (Folic Acid) 1 mg PO DAILY ETHAN PRN Reason: Protocol Last Admin: 11/25/17 10:28 Dose: 1 mg Metoclopramide HCl (Reglan) 5 mg PO 0630,1630 ETHAN PRN Reason: Protocol Last Admin: 11/25/17 05:04 Dose: 5 mg Nystatin (Nystop Topical Powder) 0 gm TOP TID ETHAN PRN Reason: Protocol Last Admin: 11/25/17 10:29 Dose: 1 applic Pantoprazole Sodium (Protonix Ec Tab) 40 mg PO 1000,2200 ETHAN PRN Reason: Protocol Last Admin: 11/25/17 10:29 Dose: 40 mg - Labs Labs: 11/25/17 10:30 11/25/17 07:30 - Constitutional Appears: No Acute Distress - Eye Exam Eye Exam: Normal appearance. absent: Scleral icterus - ENT Exam ENT Exam: Mucous Membranes Moist - Neck Exam Neck Exam: Normal Inspection - Respiratory Exam Respiratory Exam: NORMAL BREATHING PATTERN. absent: Respiratory Distress - Cardiovascular Exam Cardiovascular Exam: +S1, +S2 - GI/Abdominal Exam GI & Abdominal Exam: Soft, Normal Bowel Sounds. absent: Guarding, Tenderness, Organomegaly, Rebound - Neurological Exam Neurological Exam: Alert, Awake, Oriented x3 - Skin Skin Exam: Dry, Warm Assessment and Plan - Assessment and Plan (Free Text) Assessment: Assessment: Anemia DVT/PE, on Eliquis Colonic obstruction, history of recurrent SBO and multiple abdominal surgery H/O anastmotic ulcer Mentally challenged Sepsis/cellulitis lower extremity right Hyponatremia Plan: on soft , low fiber heart healthy diet Follow-up iron studies, B12 on Eliquis on Colace Monitor H&H and for GI bleed on Reglan, decreased to 5 mg twice a day,recommend short courses Continue GI prophylaxis OFF antibiotics Seen and discussed with Dr. Davies <Cristiane Davies V - Last Filed: 11/25/17 23:14> Objective - Vital Signs/Intake and Output Vital Signs (last 24 hours): Temp Pulse Resp BP Pulse Ox 97.2 F L 99 H 18 101/65 96 11/24/17 11:42 11/24/17 11:42 11/24/17 11:42 11/24/17 11:42 11/24/17 11:42 - Labs Labs: 11/25/17 10:30 11/25/17 07:30 Attending/Attestation - Attestation I have personally seen and examined this patient.: Yes I have fully participated in the care of the patient.: Yes I have reviewed all pertinent clinical information, including history, physical exam and plan: Yes Notes (Text): This is an addendum to GI progress report dictated by Samantha Waldron APN.The patient was seen and examined earlier. Medical records, lab studies, imagings were reviewed. Last 24 hours events reviewed. Agreed with the above treatment plan as outlined in Samantha Waldron APN's notes the with the addition of the following 11/25/17 23:14
--- NOTE | 2017-11-25 21:12 | PN ---
DATE: SUBJECTIVE: Patient is seen earlier this morning in room 303. No fevers, no chills. No nausea. PHYSICAL EXAMINATION: VITAL SIGNS: Temperature is 97, blood pressure is 101/60, respiratory rate of 18. HEENT: Unremarkable. NECK: Supple. LUNGS: Have decreased breath sounds. HEART: Normal S1 and S2. ABDOMEN: Soft, nontender. EXTREMITIES: Leg, mild erythema, now no discharge. LABORATORY DATA: Reveals a white count of 4.3, hemoglobin is 7.9. ASSESSMENT AND PLAN: This is a 47-year-old male seen in room 303 this morning, doing well, was initially admitted with severe sepsis, right leg cellulitis, deep venous thrombosis, gastroesophageal reflux disease, distal colonic obstruction, chronic anemia and anxiety. Currently, we will restart doxycycline, culture the patient, patient given an appointment to see me as an outpatient. Case discussed with Dr. Rey, nursing staff, and we will follow as an outpatient. Antwan Del Rosario MD
== END 2017-11-25 14:38 | disposition short-term general hospital (02) | DRG 299 ==
LOC: TRCU 17:31
PROVIDERS: ADMIT Internal Medicine; ATTEND Internal Medicine
PROC: F07Z9FZ Gait Training/Functional Ambulation Treatment using Assistive, Adaptive, Supportive or Protective Equipment (ICD-10-PCS; principal; 2017-11-20)
PROC: F07L6YZ Therapeutic Exercise Treatment of Musculoskeletal System - Lower Back / Lower Extremity using Other Equipment (ICD-10-PCS; 2017-11-20)
PROC: F07Z8FZ Transfer Training Treatment using Assistive, Adaptive, Supportive or Protective Equipment (ICD-10-PCS; 2017-11-20)
PROC: F08 Physical Rehabilitation and Diagnostic Audiology, Rehabilitation, Activities of Daily Living Treatment (ICD-10-PCS; 2017-11-23)
DX: I82.421 Acute embolism and thrombosis of right iliac vein (principal); I26.99 Other pulmonary embolism without acute cor pulmonale; J69.0 Pneumonitis due to inhalation of food and vomit; K56.609 Unspecified intestinal obstruction, unspecified as to partial versus complete obstruction; E46 Unspecified protein-calorie malnutrition; L03.115 Cellulitis of right lower limb; Z68.1 Body mass index [BMI] 19.9 or less, adult; E88.09 Other disorders of plasma-protein metabolism, not elsewhere classified; D50.9 Iron deficiency anemia, unspecified; L89.152 Pressure ulcer of sacral region, stage 2; F41.9 Anxiety disorder, unspecified; K21.9 Gastro-esophageal reflux disease without esophagitis; K59.09 Other constipation; E53.8 Deficiency of other specified B group vitamins; E86.0 Dehydration; L57.0 Actinic keratosis; K31.84 Gastroparesis; F79 Unspecified intellectual disabilities; Z90.3 Acquired absence of stomach [part of]; Z79.01 Long term (current) use of anticoagulants

== ENCOUNTER 2017-11-25 13:30 | Inpatient (IN) | payer MEDICARE, MEDICAID ==
[2017-11-25 13:32] VITALS: BMI 21.3
[2017-11-25 14:40] LABS: INR 1.36 (0.93-1.08); PARTIAL THROMBOPLASTIN TIME 32.5 Seconds (25.1-36.5); PROTHROMBIN TIME 15.6 SECONDS (9.4-12.5)
[2017-11-25] MEDS ORDERED: HEPARIN SODIUM/NS 1,000 ML IV ONE (15:26)
[2017-11-25] MEDS ORDERED: Lidocaine 2% Inj (20ml) ONE (15:26)
[2017-11-25] MEDS ORDERED: Sodium Chloride 0.45% 1,000 ML IV SCH (16:30)
--- NOTE | 2017-11-25 18:32 | VASCULAR ---
PROCEDURE: Bilateral IVC filter placement HISTORY: Extensive right iliofemoral DVT. GI hemorrhage with falling hematocrit. Needs IVC filter. Duplicated IVC. Needs bilateral IVC filters. PHYSICIAN(S): Juan Easley MD. TECHNIQUE: The relative risks and indications of the procedure were explained to the patient's family and consent obtained. The patient was placed supine on the arteriogram table and both groins prepped and draped usual sterile fashion. Conscious sedation and monitoring were provided throughout the procedure by a nurse. Left common femoral vein was punctured under ultrasound guidance with a micropuncture set. A 5 Bangladeshi sheath was placed. A 5 Bangladeshi flush catheter was placed. Left pelvic venogram revealed a duplicated left IVC which drains into the left renal vein. 0.035 guidewire was advanced centrally. An IVC filter was deployed at the level of L2-3 in the left IVC. Next the right common femoral vein was punctured under ultrasound guidance. A 5 Bangladeshi sheath was placed. A flush catheter was placed in the right iliac system. A DSA right iliac venogram was performed. This revealed a patent right IVC. 0.035 guidewire was advanced centrally. A 2nd IVC filter was deployed in the right IVC at the level of L2-3. Completion venograms were obtained. The sheath was removed hemostasis obtained. The patient tolerated the procedure well. FINDINGS: There is a duplicated IVC present, requiring bilateral IVC filter placement. Bilateral filter for successfully deployed at the L2-3 level. IMPRESSION: 1. Duplicated infrarenal IVC. 2. Successful bilateral infrarenal IVC filter placement at L2-3.
[2017-11-26] MEDS: Pantoprazole 40 mg EC Tab PO SCH ×2 (00:39→18:58)
[2017-11-26 08:29] LABS: BASO # 0.05 K/mm3 (0.0-2.0); BASO % 1.4 % (0.0-3.0); EOS # 0.2 (0.0-0.7); EOS % 4.2 % (1.5-5.0); GRAN # 2.25 (1.4-6.5); GRAN % 63.1 % (50.0-68.0); HEMOGLOBIN 8.4 g/dL (14.0-18.0); LYMPH # 0.8 (1.2-3.4); LYMPH % 21.8 % (22.0-35.0); MEAN CELL VOLUME 91.7 fl (80.0-105.0); MEAN CORPUSCULAR HGB CONC 30.5 g/dl (31.0-37.0); MEAN PLATELET VOLUME 9.2 fl (7.0-11.0); MONO # 0.3 (0.1-0.6); MONO % 9.5 % (1.0-6.0); WHITE BLOOD COUNT 3.6 10^3/ul (4.5-11.0)
[2017-11-26 08:49] LABS: BLOOD UREA NITROGEN 10 mg/dL (7-21); CALCIUM 8.3 mg/dL (8.4-10.5); GFR AFRICAN-AMERICAN > 60; GFR NON-AFRICAN AMERICAN > 60
[2017-11-26] MEDS: VITAMIN D3 PO SCH (11:13)
[2017-11-26] MEDS: [UNRECOGNIZED DRUG - OTHER] PO SCH (11:13)
[2017-11-26] MEDS: CALCIUM CARBONATE PO SCH (11:13)
--- NOTE | 2017-11-26 22:46 | CP.PCM.CON ---
History of Present Illness - History of Present Illness History of Present Illness: Patient was transferred from TCU. Hb/hct dropped to 7.9 from 10 gm/dl. he was on anticoagualtion for recent DVT in right leg. No Bleeding from any site. s/p IVC filter placement. he has 2 IVC, filter placed in both IVC. Review of Systems - Constitutional Constitutional: As Per HPI - EENT Eyes: absent: As Per HPI, Blind Spots, Blurred Vision, Change in Vision, Decreased Night Vision, Diplopia, Discharge, Dry Eye, Exophthalmos, Floaters, Irritation, Itchy Eyes, Loss of Peripheral Vision, Pain, Photophobia, Requires Corrective Lenses, Sees Flashes, Spots in Vision, Tunnel Vision, Other Visual Disturbances, Loss of Vision, Other Ears: absent: As Per HPI, Decreased Hearing, Ear Discharge, Ear Pain, Tinnitus, Abnormal Hearing, Disequilibrium, Dizziness, Other Nose/Mouth/Throat: absent: As Per HPI, Epistaxis, Nasal Congestion, Nasal Discharge, Nasal Obstruction, Nasal Trauma, Nose Pain, Post Nasal Drip, Sinus Pain, Sinus Pressure, Bleeding Gums, Change in Voice, Dental Pain, Dry Mouth, Dysphagia, Halitosis, Hoarsness, Lip Swelling, Mouth Lesions, Mouth Pain, Odynophagia, Sore Throat, Throat Swelling, Tongue Swelling, Facial Pain, Neck Pain, Neck Mass, Other - Cardiovascular Cardiovascular: absent: As Per HPI, Acrocyanosis, Chest Pain, Chest Pain at Rest , Chest Pain with Activity, Claudication, Diaphoresis, Dyspnea, Dyspnea on Exertion, Edema, Irregular Heart Rhythm, Pain Radiating to Arm/Neck/Jaw, Leg Edema, Leg Ulcers, Lightheadedness, Orthopnea, Palpitations, Paroxysmal Nocturnal Dyspnea, Pedal Edema, Radiating Pain, Rapid Heart Rate, Slow Heart Rate, Syncope, Other - Respiratory Respiratory: absent: As Per HPI, Cough, Dyspnea, Hemoptysis, Dyspnea on Exertion , Wheezing, Snoring, Stridor, Pain on Inspiration, Chest Congestion, Excessive Mucous Production, Change in Mucous Color, Pain with Coughing, Other - Genitourinary Genitourinary: absent: As Per HPI, Change in Urinary Stream, Difficulty Urinating, Dysuria, Flank Pain, Hematuria, Pyuria, Nocturia, Urinary Incontinence, Urinary Frequency, Urinary Hesitance, Urinary Urgency, Voiding Freq/Small Amts, Freq UTI, Hx Renal/Bladder Calculi, Hx /Renal Surgery, Bladder Distension, Other - Reproductive: Male Reproductive:Male: As Per HPI, Prepubesant, Dyspareunia, Genital Lesions, Genital Pruritis, Pelvic Pain, Sexual Dysfunction, Penile Discharge, Genital Odor, Impotence, On ED Medications, Penile Implant, Other - Musculoskeletal Musculoskeletal: absent: As Per HPI, Abnormal Gait, Arthralgias, Atrophy, Back Pain, Deformity, Joint Swelling, Limited Range of Motion, Loss of Height, Muscle Cramps, Muscle Weakness, Myalgias, Neck Pain, Numbness, Radiating Pain into Limb, Stiffness, Tingling, Other - Integumentary Integumentary: absent: As Per HPI, Acne, Alopecia, Bleeding Lesions, Change in Hair, Change in Nails, Change in Pigmentation, Changing Lesions, Dry Skin, Erythema, Furuncle, Hirsutism, Lesions, New Lesions, Non-Healing Lesions, Photosensitivity, Pruritus, Rash, Skin Pain, Skin Ulcer, Sores, Striae, Swelling , Unusual Bruising, Wounds, Jaundice, Other - Neurological Neurological: absent: As Per HPI, Abnormal Gait, Abnormal Hearing, Abnormal Movements, Abnormal Speech, Behavioral Changes, Burning Sensations, Confusion, Convulsions, Disequilibrium, Dizziness, Numbness, Focal Weakness, Frequent Falls , Headaches, Lack of Coordination, Loss of Vision, Memory Loss, Paresthesias, Radicular Pain, Restless Legs, Sensory Deficit, Syncope, Tingling, Tremor, Vertigo, Weakness, Other Visual Disturbances, Other - Endocrine Endocrine: absent: As Per HPI, Change in Body Appearance, Change in Libido, Cold Intolorance, Deepening of Voice, Excessive Sweating, Fatigue, Flushing, Heat Intolorance, Increase in Ring/Shoe/Hat Size, Palpitations, Polydipsia, Polyphagia, Polyuria, Other - Hematologic/Lymphatic Hematologic: As Per HPI Past Patient History - Infectious Disease Hx of Infectious Diseases: None - Tetanus Immunizations Tetanus Immunization: Unknown - Past Social History Smoking Status: Never Smoked - CARDIAC Hx Pacemaker: No - PULMONARY Hx Respiratory Disorders: Yes Other/Comment: aspiration pneumonia - NEUROLOGICAL Hx Paralysis: No - HEENT Hx HEENT Problems: No - RENAL Hx Chronic Kidney Disease: No - ENDOCRINE/METABOLIC Hx Endocrine Disorders: No - HEMATOLOGICAL/ONCOLOGICAL Hx Blood Disorders: Yes Hx Anemia: Yes - INTEGUMENTARY Hx Dermatological Problems: Yes Other/Comment: MULTIPLE SCARRING TO ABDOMINAL AREA FROM MULTIPLE ABDOMINAL SURGERIES - MUSCULOSKELETAL/RHEUMATOLOGICAL Hx Falls: No - GASTROINTESTINAL Hx Gastrointestinal Disorders: Yes Hx Colostomy: Yes (with reversal) Other/Comment: colitis. g - GENITOURINARY/GYNECOLOGICAL Hx Genitourinary Disorders: No - PSYCHIATRIC Hx Emotional Abuse: No Hx Physical Abuse: No - SURGICAL HISTORY Hx Surgeries: Yes Other/Comment: small bowel resection. inguinal hernia repair - ANESTHESIA Hx Anesthesia Reactions: No Hx Malignant Hyperthermia: No Meds Allergies/Adverse Reactions: Allergies Allergy/AdvReac Type Severity Reaction Status Date / Time No Known Allergies Allergy Verified 11/19/17 23:07 - Medications Medications: Current Medications Apixaban (Eliquis) 5 mg PO BID [facility] PRN Reason: Protocol Last Admin: 11/26/17 18:56 Dose: 5 mg Cyanocobalamin (Vitamin B12 1000 Mcg/Ml Inj) 1,000 mcg IM DAILY [facility] Last Admin: 11/26/17 11:11 Dose: 1,000 mcg Ergocalciferol (Drisdol 50,000 Intl Units Cap) 1 cap PO QWK [facility] Folic Acid (Folic Acid) 1 mg PO DAILY [facility] Last Admin: 11/26/17 11:13 Dose: 1 mg Metoclopramide HCl (Reglan) 5 mg PO ACHS [facility] Last Admin: 11/26/17 11:12 Dose: 5 mg Mupirocin (Bactroban Ointment) 0 gm TOP BID [facility] Last Admin: 11/26/17 18:55 Dose: 1 applic Non-Formulary Medication (Calcium Carbonate/Vitamin D3 [Calcium 1,000 + D3 Caplet]) 1 each PO DAILY [facility] Last Admin: 11/26/17 11:13 Dose: Not Given Pantoprazole Sodium (Protonix Ec Tab) 40 mg PO BID [facility] Last Admin: 11/26/17 18:58 Dose: 40 mg Physical Exam - Constitutional Appears: Well, Non-toxic - Head Exam Head Exam: ATRAUMATIC, NORMAL INSPECTION, NORMOCEPHALIC - Eye Exam Eye Exam: Normal appearance Pupil Exam: NORMAL ACCOMODATION - ENT Exam ENT Exam: Mucous Membranes Moist, Normal Exam - Neck Exam Neck exam: Positive for: Normal Inspection - Respiratory Exam Respiratory Exam: Clear to Auscultation Bilateral - GI/Abdominal Exam GI & Abdominal Exam: Normal Bowel Sounds, Soft - Extremities Exam Extremities exam: Positive for: normal inspection - Back Exam Back exam: NORMAL INSPECTION - Neurological Exam Neurological exam: Alert, CN II-XII Intact, Oriented x3 - Skin Skin Exam: Pallor, Warm Results - Vital Signs Recent Vital Signs: Last Vital Signs Temp 99 F 11/26/17 20:15 Pulse 88 11/26/17 20:15 Resp 20 11/26/17 20:15 BP 89/52 L 11/26/17 20:15 Pulse Ox 96 11/26/17 07:44 - Labs Result Diagrams: 11/26/17 08:00 11/26/17 08:00 Labs: Laboratory Results - last 24 hr 11/25/17 11/26/17 11/26/17 22:23 08:00 08:00 WBC 3.6 L RBC 3.00 L Hgb 8.4 L Hct 27.5 L MCV 91.7 MCH 28.0 MCHC 30.5 L RDW 17.0 H Plt Count 413 MPV 9.2 Gran % 63.1 Lymph % (Auto) 21.8 L Churchill % (Auto) 9.5 H Eos % (Auto) 4.2 Baso % (Auto) 1.4 Gran # 2.25 Lymph # (Auto) 0.8 L Churchill # (Auto) 0.3 Eos # (Auto) 0.2 Baso # (Auto) 0.05 Sodium 136 Potassium 3.9 Chloride 106 Carbon Dioxide 27 Anion Gap 7 L BUN 10 Creatinine 0.7 L Est GFR ( Amer) > 60 Est GFR (Non-Af Amer) > 60 Random Glucose 82 Calcium 8.3 L Blood Type O NEGATIVE Antibody Screen Positive Antibody Identification Anti Fya Antigen Identification Fya Antigen - NEGATIVE Crossmatch See Detail BBK History Checked Patient has bt Assessment & Plan - Assessment and Plan (Free Text) Assessment: 1. DVT right leg : s/p IVC filter placement. continue anticoagulation , eliquis 5 mg PO BID. compression stalking right leg. 2. Anemia : Hct dropped. 2 units of PRBC . GI following. stool occult blood. 3. Hypercoaguable state. thrombophilia work up will be sent. 4. renal : normal. Thank you Dr. Rey for allowing us to participate in his care. - Date & Time Date: 11/26/17 Time: 09:00
--- NOTE | 2017-11-27 02:48 | CON ---
DATE: 11/26/2017 PULMONARY CONSULTATION REFERRING PHYSICIAN: Meme Rey MD. REASON FOR CONSULTATION: Pulmonary embolism; right leg DVT, status post IVC filter. HISTORY OF PRESENT ILLNESS: This is a 47-year-old gentleman, well known to me from acute side of the hospital when admitted because of the right leg swelling, found to have a right leg DVT with erythema and probably cellulitis. CT of the abdomen with contrast was done, which shows bilateral pulmonary embolism. This is a 47-year-old gentleman with right leg DVT, pulmonary embolism, intellectually disabled, anemia, malnourished, decubitus ulcer, history of acid reflux, history of gastrectomy, history of bowel resection in the past, recurrent bowel obstruction, basically on Reglan. Just completed his acute care and TICU stay. Now admitted to acute side status post IVC filter. Lying in the bed, no acute distress. No cough. No sputum flexion. No nausea. No vomiting. Had a JEFFERSON stocking on right lower extremity and tender to touch. PAST MEDICAL HISTORY: As per history present illness. ALLERGIES: NONE KNOWN. SOCIAL HISTORY: Nonsmoker, nondrinker. FAMILY HISTORY: No significant cardiopulmonary disease reported. MEDICATIONS: He is on Bactroban ointment to affected area twice a day, vitamin D 50,000 units daily, Eliquis 5 mg twice a day, folic acid 1 mg daily, Protonix 40 mg daily, Reglan 5 mg before meals and at bedtime, vitamin B12 of 1000 mcg IM daily. REVIEW OF SYSTEMS: No headache. No rhinitis. No cough. No nausea. No vomiting. No abdominal pain. Has a right leg pain and swelling. PHYSICAL EXAMINATION: GENERAL: Lying in the bed, no acute distress. VITAL SIGNS: Temperature is 99, heart rate is 88, respiratory rate is 20, blood pressure 89/52, pulse ox 96% on room air. HEENT: Moist mucous membrane. No ulcer or thrush noted. NECK: Supple. No JVD. LUNGS: Have fair airflow with rhonchi. HEART: S1, S2. ABDOMEN: Soft, nontender. No organomegaly. EXTREMITIES: There is right leg some edema, has a JEFFERSON stocking, tender to touch. NEUROLOGIC: Awake, alert. Follows simple command. LABORATORY DATA: Shows hemoglobin 8.4, hematocrit 27.5, WBC 3.6, platelet count is 413. INR 1.36, PTT 33. Sodium 136, potassium 3.9, chloride 106, bicarbonate 27, BUN 10, creatinine 0.7, glucose 82, calcium 8.3. Vitamin B12 of 852. IMPRESSION AND PLAN: Right leg extensive deep venous thrombosis, status post inferior vena cava filter; pulmonary embolism; history of intestinal obstruction requiring partial gastrectomy; also has history of hemicolectomy; intellectually disabled; vitamin B12 deficiency; iron deficiency; malnutrition; decubitus ulcer. Pulmonary point of view, doing okay. Keep head at 45 degrees. May use supplemental oxygen for shortness of breath. Continue anticoagulation. Out of bed to chair, fall precaution, stat ambulating. Thank you and we will follow with you. Eber Ziegler MD
[2017-11-27 08:04] LABS: HEMOGLOBIN 9.8 g/dL (14.0-18.0); MEAN CORPUSCULAR HEMOGLOBIN 27.7 pg (25.0-35.0); MEAN CORPUSCULAR HGB CONC 31.5 g/dl (31.0-37.0); MEAN PLATELET VOLUME 9.3 fl (7.0-11.0); RBC 3.54 10^6/uL (3.5-6.1); RED CELL DISTRIBUTION WIDTH 16.7 % (11.5-14.5); WHITE BLOOD COUNT 4.2 10^3/ul (4.5-11.0)
[2017-11-27 08:07] LABS: MEAN CELL VOLUME 87.9 fl (80.0-105.0)
[2017-11-27 08:36] VITALS: BP 90/55; PULSE 69; RESP 18; TEMP 98.5; O2SAT 93
[2017-11-27] MEDS: Pantoprazole 40 mg EC Tab PO SCH (10:07)
[2017-11-27] MEDS: CALCIUM CARBONATE PO SCH (10:08)
[2017-11-27] MEDS: VITAMIN D3 PO SCH (10:08)
[2017-11-27] MEDS: [UNRECOGNIZED DRUG - OTHER] PO SCH (10:08)
--- NOTE | 2017-11-27 20:05 | HP ---
CHIEF COMPLAINT: Swelling of the leg. HISTORY OF PRESENT ILLNESS: Mr. Sean Dee is a 47-year-old male with multiple medical problems, mentally challenged, was admitted on the medical floor for right leg swelling, PE, DVT, and was given antibiotics, transferred to TCU for deconditioning, but over there, the patient's hemoglobin dropped and the patient needed IVC filter. Then, the patient was taken for IVC filters. The patient had 2 inferior vena cava, 2 IVC filters are put, then transferred to the medical floor again for blood transfusion and monitoring of H and H. The patient has history of multiple times small bowel obstruction and multiple abdominal surgeries. Had biopsy done from the right cheek that is keratosis. PAST MEDICAL HISTORY: As above, has right leg DVT, cellulitis of the right leg, pulmonary emboli, Down syndrome, anemia, malnourished, decubitus ulcer, history of acid reflux, history of gastrectomy, history of bowel resection in the past, recurrent bowel obstruction. ALLERGIES: THE PATIENT IS NOT ALLERGIC TO ANY MEDICATION. SOCIAL HISTORY: Never smoked, no drugs, no ethanol. FAMILY HISTORY: Not significant family history. REVIEW OF SYSTEMS: The patient was seen and examined on the bedside. Sister and niece was sitting on the bedside also. The patient feeling comfortable. Still having dressing on the leg. No nausea or vomiting, no fever, no chills, no headache, no rhinitis, no coughing, no abdominal pain, no chest pain. PHYSICAL EXAMINATION: VITAL SIGNS: Temperature 99, heart rate 88, respiratory rate 20, blood pressure 89/52, pulse oximetry 92% on room air. HEENT: Head normocephalic, atraumatic. Eyes, PERRLA. Extraocular muscles intact. Conjunctivae clear. Nose patent. Mucous membranes are moist. NECK: Supple. No carotid bruits. No JVD or thyromegaly. LUNGS: Fair airflow with rhonchi. HEART: S1 and S2 positive. ABDOMEN: Soft, nontender. No organomegaly. EXTREMITIES: Right leg has edema, redness; has JEFFERSON stocking. NEUROLOGIC: Awake, alert, follow simple commands. LABORATORY DATA: Hemoglobin 8.4, hematocrit 27.5, white blood cells 3.6, platelets of 413. BUN 10, creatinine 0.7, sodium 136, potassium 3.9, calcium 8.3. ASSESSMENT AND PLAN: Mr. Sean Dee has pulmonary emboli, right leg extensive deep venous thrombosis, right leg cellulitis, has inferior vena cava filter put in 2 inferior vena cava, history of intestinal obstruction requiring partial gastrectomy, history of hemicolectomy, mentally challenged, B12 deficiency, iron deficiency, malnutrition. Length of time discussion done with the patient's sister and niece. All questions answered. Lesion on the right cheek, on biopsy, it is keratosis. We will continue anticoagulation. Gastrointestinal and deep venous thrombosis prophylaxis, dry man and compliance advisor on the case. We will follow up. Meme Rey MD
--- NOTE | 2017-11-27 22:43 | PN ---
DATE: 11/27/2017 PULMONARY PROGRESS NOTE REFERRING PHYSICIAN: Meme Rey MD SUBJECTIVE: He is lying in the bed, head at 45 degrees. Night was unremarkable. No headache. No rhinitis. No nausea. No diarrhea. No abdominal pain. Still has a right leg swelling and pain, has a JEFFERSON stocking. OBJECTIVE: GENERAL: In no acute distress. VITAL SIGNS: Temperature is 98, heart rate is 69, respiratory rate is 18, blood pressure 90/55, pulse ox 93% on room air. HEENT: Moist mucous membrane. No ulcer or thrush noted. NECK: Supple. No JVD. LUNGS: Have fair airflow with rhonchi. HEART: S1 and S2. ABDOMEN: Soft and nontender. No organomegaly. EXTREMITIES: Right leg swelling and edema, tender to touch, has a JEFFERSON stocking. MEDICATIONS: Reviewed and noted. No new medicines reported since yesterday. LABORATORY DATA: Reviewed. Hemoglobin 9.8, hematocrit 31.1, WBC of 4.2, platelet 366. IMPRESSION AND PLAN: Right leg extensive deep vein thrombosis, status post inferior vena cava filter; pulmonary embolism; history of intestinal obstruction requiring partial gastrectomy and also had a hemicolectomy; intellectually disabled; vitamin B12 deficiency; iron deficiency; malnutrition; decubitus ulcer. From a Pulmonary point of view, doing okay. Continue anticoagulation. Keep head at 45 degrees. Aspiration precautions. Gastric prophylaxis. Anticoagulation. Elevate right lower extremity. Continue JEFFERSON stocking. Thank you, and we will follow with you. Eber Ziegler MD
[2017-12-02] MEDS ORDERED: Ergocalciferol 50,000 Intl Units Cap PO SCH (10:00)
== END 2017-11-27 16:22 | DRG 252 ==
LOC: SDSVAS 13:30 → 5RSO 18:40
PROVIDERS: ADMIT Internal Medicine; ATTEND Internal Medicine
PROC: 06H03DZ Insertion of Intraluminal Device into Inferior Vena Cava, Percutaneous Approach (ICD-10-PCS; principal; 2017-11-25)
PROC: 30233N1 Transfusion of Nonautologous Red Blood Cells into Peripheral Vein, Percutaneous Approach (ICD-10-PCS; 2017-11-26)
DX: I82.4Z1 Acute embolism and thrombosis of unspecified deep veins of right distal lower extremity (principal); I26.99 Other pulmonary embolism without acute cor pulmonale; E46 Unspecified protein-calorie malnutrition; L03.115 Cellulitis of right lower limb; E53.8 Deficiency of other specified B group vitamins; D50.9 Iron deficiency anemia, unspecified; L57.0 Actinic keratosis; K21.9 Gastro-esophageal reflux disease without esophagitis; Z79.01 Long term (current) use of anticoagulants; Q90.9 Down syndrome, unspecified; Z90.49 Acquired absence of other specified parts of digestive tract; Z90.3 Acquired absence of stomach [part of]

== ENCOUNTER 2017-11-27 16:22 | Inpatient (IN) | payer OTHER, MEDICAID ==
[2017-11-27 17:07] VITALS: BMI 32.1
[2017-11-27] MEDS ORDERED: Pneumococcal 23-Valent Vaccine IM ONE (19:18)
[2017-11-27] MEDS ORDERED: Influenza Vaccine 60 mcg/0.5 mL SYR (4YR UP) IM ONE (19:18)
[2017-11-28] MEDS: Pantoprazole 40 mg EC Tab PO SCH ×2 (05:38→16:49)
[2017-11-28 09:49] LABS: BASO # 0.02 K/mm3 (0.0-2.0); BASO % 0.4 % (0.0-3.0); EOS # 0.4 (0.0-0.7); EOS % 6.9 % (1.5-5.0); GRAN # 3.26 (1.4-6.5); GRAN % 64.6 % (50.0-68.0); HEMOGLOBIN 10.4 g/dL (14.0-18.0); LYMPH # 0.9 (1.2-3.4); LYMPH % 17.2 % (22.0-35.0); MEAN CELL VOLUME 89.8 fl (80.0-105.0); MEAN CORPUSCULAR HEMOGLOBIN 27.9 pg (25.0-35.0); MEAN PLATELET VOLUME 9.7 fl (7.0-11.0); MONO # 0.6 (0.1-0.6); MONO % 10.9 % (1.0-6.0); RBC 3.73 10^6/uL (3.5-6.1); RED CELL DISTRIBUTION WIDTH 17.1 % (11.5-14.5); WHITE BLOOD COUNT 5.1 10^3/ul (4.5-11.0)
[2017-11-28 09:53] LABS: BLOOD UREA NITROGEN 8 mg/dL (7-21); CALCIUM 8.5 mg/dL (8.4-10.5); GFR AFRICAN-AMERICAN > 60; GFR NON-AFRICAN AMERICAN > 60
[2017-11-28] MEDS ORDERED: CHOLECALCIFEROL PO SCH (10:00)
[2017-11-28] MEDS ORDERED: CALCIUM CARBONATE PO SCH (10:00)
[2017-11-29] MEDS: Pantoprazole 40 mg EC Tab PO SCH ×2 (05:16→18:12)
--- NOTE | 2017-11-29 05:57 | CON ---
DATE: REFERRING PHYSICIAN: Meme Rey MD REASON FOR CONSULT: Pulmonary embolism, DVT. HISTORY OF PRESENT ILLNESS: This is a 47-year-old gentleman well known to me from acute side of the hospital. He is intellectually disabled, originally admitted with diffuse DVT of the right leg, treated with IV then p.o. anticoagulation. CT shows bilateral pulmonary embolism, has an IVC filter placed in. Other issues are, has multiple episode of intestinal obstruction with partial resection of bowels, also had a partial gastrectomy in the past, malnourished, anemia decubiti ulcer, presently admitted to TICU for continued care. He is out of bed to chair, having lunch. He has a JEFFERSON stocking on the right lower extremity with some pain and swelling. PAST MEDICAL HISTORY: As per history of present illness. ALLERGIES: Unknown. SOCIAL HISTORY: Nonsmoker, nondrinker. FAMILY HISTORY: No significant cardiopulmonary disease reported. MEDICATION: He is on Bactroban ointment to the affected area twice a day, vitamin D 50,000 units weekly, Eliquis 5 mg twice a day, folic acid 1 mg daily, Protonix 40 mg twice a day, Reglan 5 mg before meals and at bedtime. REVIEW OF SYSTEMS: No headache or rhinitis. No cough, no chest pain. No nausea, no vomiting. No diarrhea. Has right leg swelling and pain. PHYSICLA EXAMINATION: GENERAL: Sitting up, complaining about right leg pain. VITAL SIGNS Temperature is 98, heart is 91, respiratory rate is 18, blood pressure 101/66, pulse of 96% on room air. HEENT: Moist mucous membranes . NECK: Supple. No JVD. LUNGS: Have fair airflow with no rhonchi. HEART: S1, S2. ABDOMEN: Soft, nontender. No organomegaly. EXTREMITIES: No edema of the left leg. Right leg has edema and it is tender to touch. NEUROLOGIC: Awake and alert. Follows simple commands. LABORATORY DATA: Shows hemoglobin 10.4, hematocrit 33.5, WBC 5.1, platelet is 374. Sodium 136, potassium 3.8, chloride 107, bicarbonate 25, BUN 8, creatinine 0.7, glucose 60, calcium is 8.5. IMPRESSION AND PLAN: Right leg extensive deep venous thrombosis, status post inferior vena cava filter, pulmonary embolism, intellectually disabled, history of partial gastrectomy, history of intestinal resection in the past, bowel obstruction, vitamin B12 deficiency, iron deficiency, malnutrition decubiti ulcer. Agree with Dr. Rey,continue anticoagulation, fall precaution. Followup hemoglobin and hematocrit. Supplement B12, iron, gastric prophylaxis. Keep JEFFERSON stocking on the right lower extremity. We will follow with you. Eber Ziegler MD
[2017-11-29 07:06] LABS: HEMOGLOBIN 10.3 g/dL (14.0-18.0); MEAN CELL VOLUME 88.6 fl (80.0-105.0); MEAN CORPUSCULAR HEMOGLOBIN 27.8 pg (25.0-35.0); MEAN CORPUSCULAR HGB CONC 31.4 g/dl (31.0-37.0); MEAN PLATELET VOLUME 9.6 fl (7.0-11.0); RBC 3.7 10^6/uL (3.5-6.1); RED CELL DISTRIBUTION WIDTH 16.7 % (11.5-14.5); WHITE BLOOD COUNT 7.2 10^3/ul (4.5-11.0)
[2017-11-29 07:24] LABS: BLOOD UREA NITROGEN 15 mg/dL (7-21); CALCIUM 8.8 mg/dL (8.4-10.5); GFR AFRICAN-AMERICAN > 60; GFR NON-AFRICAN AMERICAN > 60
--- NOTE | 2017-11-29 09:38 | HP ---
CHIEF COMPLAINT: Swelling of the leg and fatigue. HISTORY OF PRESENT ILLNESS: Mr. Sean Dee is a 47-year-old male with multiple medical problems, was admitted on the medical floor, was diagnosed with PE and DVT, was started on heparin. He has cellulitis of the leg. IV antibiotics were given. He came with low hemoglobin and multiple blood transfusions were given. A couple of consultants were called and patient improved. Hematology called, they put patient on Effient, then discontinued heparin, transferred patient to the TCU. At TCU, the patient's hemoglobin dropped. Patient was getting physical therapy, get improving, but hemoglobin dropped and he need Green filter. Dr. Juan Easley's consult called. He put IVC filter. He has 2 inferior vena cavas; so, 2 filters were put and patient was transferred to the medical side and blood transfusion given. He improved and now we take him back to the TCU for deconditioning on 11/27/2017. We will monitor H&H and we will give physical therapy. PAST MEDICAL HISTORY: As above, PE, DVT, cellulitis of the right leg, Down syndrome, malnourished, decubitus ulcer, history of acid reflux, gastrectomy, bowel resection in the past, recurrent bowel obstruction. ALLERGIES: THE PATIENT IS NOT ALLERGIC TO ANY MEDICATION. SOCIAL HISTORY: Never smoked, no drugs, no ethanol. FAMILY HISTORY: Not significant. REVIEW OF SYSTEMS: Patient was seen and examined on the bedside. Looking comfortable. No nausea, vomiting, or diarrhea. No hematuria or hematochezia. No swelling of the leg. No chest pain. No palpitation. No headache. No dizziness. PHYSICAL EXAMINATION: VITAL SIGNS: Temperature 97.5, pulse 90, blood pressure 101/66, respiratory rate 18. HEENT: Head: Normocephalic, atraumatic. Eyes: PERRLA. Extraocular muscles intact. Conjunctivae clear. Nose patent. Mucous membranes moist. NECK: Supple. No carotid bruits. No JVD or thyromegaly. CHEST: Bilaterally symmetrical. HEART: S1 and S2 positive. LUNGS: Clear to auscultation. ABDOMEN: Soft. Bowel sounds present. No organomegaly. EXTREMITIES: Right leg has a dressing. The upper extremities, no edema, no cyanosis. NEUROLOGIC: Patient is awake, alert, follow simple commands. MEDICATIONS: Bactroban, vitamin D, Eliquis,folic acid, Protonix, Reglan. LABORATORY DATA: White blood cells 5.1, hemoglobin 10.4, hematocrit 33.5, platelets 376. Sodium 136, potassium 3.8, BUN is 30.7, glucose 60. ASSESSMENT AND PLAN: Mr. Sean Dee, a 47-year-old male with anemia, status post blood transfusion, history of pulmonary emboli, history of deep vein thrombosis, mentally challenged, right leg extensive deep vein thrombosis and cellulitis, status post inferior vena cava filter, history of intestinal obstruction requiring partial gastrectomy and had hemicolectomy, intellectually disabled, vitamin B12 deficiency, iron deficiency, malabsorption, decubitus ulcer. Patient is doing better. Aspiration precautions. Gastric prophylaxis, anticoagulation, elevated right leg, extremities. Continue JEFFERSON stocking. Gastrointestinal and deep vein thrombosis prophylaxis. We will follow up. Meme Rey MD
[2017-11-29] MEDS ORDERED: Cholecalciferol 400 Intl Units Tab PO ONE (10:45)
--- NOTE | 2017-11-29 22:20 | PN ---
DATE: 11/29/2017 PULMONARY PROGRESS NOTE REFERRING PHYSICIAN: Meme Rey MD SUBJECTIVE: The patient is sitting up in a chair night was unremarkable. No headache, no rhinitis, no nausea, no vomiting, no diarrhea. Still has right leg swelling, has a JEFFERSON stocking. OBJECTIVE: GENERAL: In no acute distress. VITAL SIGNS: Temp 98, heart rate 82, respiratory rate is 20, blood pressure 110/68, pulse ox 96% on room air. HEENT: Moist mucous membrane. No ulcer or thrush noted. NECK: Supple. No JVD. LUNGS: Have fair airflow with rhonchi. HEART: S1 and S2. ABDOMEN: Soft, nontender. No organomegaly. EXTREMITIES: Has right leg swelling, tender. Has a JEFFERSON stocking. NEUROLOGIC: Awake, alert, follows simple command. MEDICATIONS: He is on Bactroban ointment to affected area, vitamin D 50,000 units weekly, Eliquis 5 mg twice a day, folic acid 1 mg daily, Protonix 40 mg twice a day, Reglan 5 mg a.c. and at bedtime, Tylenol p.r.n., vitamin D 4000 units daily. LABORATORY DATA: Shows hemoglobin 10.3, hematocrit 32.8, WBC 7.2, platelet is 433. Sodium 137, potassium 4.0, chloride 106, bicarbonate 25, BUN 15, creatinine 0.7, glucose 80, calcium is 8.8. IMPRESSION AND PLAN: Right leg extensive deep venous thrombosis status post inferior vena cava filter, pulmonary embolism, intellectually disabled, history of partial gastrectomy, history of intestinal resection, activities of daily living dysfunction, vitamin B deficiency, iron deficiency, malnutrition, decubiti ulcer. Pulmonary point of view, doing okay. Continue anticoagulation, fall precaution, pressure ulcer precaution. Elevate right lower extremity. Gastric prophylaxis, JEFFERSON stocking on the right lower extremity. Thank you and we will follow with you. Eber Ziegler MD
--- NOTE | 2017-11-30 02:46 | PN ---
DATE: SUBJECTIVE: Patient is 47-year-old male. Patient was seen and examined on the bedside, looking comfortable. No nausea, vomiting, diarrhea. No hematuria. No hematochezia. No headache. No dizziness. No chest pain. No palpitation. Patient is a very poor historian. OBJECTIVE: VITAL SIGNS: Temperature 98, pulse 82, blood pressure 110/68, respiratory rate 18. HEENT: Head normocephalic, atraumatic. Eyes PERRLA. Extraocular muscles intact. Conjunctivae clear. Nose patent. Mucous membranes moist. NECK: Supple. No carotid bruit. No JVD or thyromegaly. CHEST: Bilaterally symmetrical. HEART: S1 and S2 positive. LUNGS: Clear to auscultation. ABDOMEN: Soft. Bowel sounds present. No organomegaly. EXTREMITIES: No edema, no cyanosis. NEUROLOGICAL: Patient is awake and alert. Follows simple commands. MEDICATIONS: Bactroban, vitamin D, Eliquis,folic acid, Os-Peter, Protonix, Reglan, Tylenol. LABORATORY DATA: White blood cells 7.2, hemoglobin 10.3, hematocrit 32.8. Sodium 137, potassium 4.0, BUN 15, creatinine 0.7. Platelets 433. ASSESSMENT AND PLAN: Mr. Sean Dee is a 47-year-old male with anemia status post multiple blood transfusions. Patient is mentally challenged, history of pulmonary emboli and deep vein thrombosis, cellulitis of the right leg status post inferior vena cava filter in two inferior vena cava, history of partial gastrectomy, history of intestinal obstruction, history of bowel obstruction, B12 and iron deficiency, malnutrition. We will continue present treatment, anticoagulation. Fall precautions. Monitoring hemoglobin and hematocrit. Thromboembolic deterrent stockings, wound care. We will follow up. Meme Rey MD
[2017-11-30] MEDS: Pantoprazole 40 mg EC Tab PO SCH ×2 (05:45→16:55)
--- NOTE | 2017-11-30 09:56 | CON ---
DATE: 11/30/2017 CONSULT REQUESTED BY: Meme Rey MD REASON FOR CONSULTATION: DVT, right lower extremity and GI bleed. HISTORY OF PRESENT ILLNESS: Mr. Dee is a 47-year-old male admitted with right lower extremity DVT. He also has chronic GI bleed and history of multiple abdominal surgeries. He was admitted to Transitional Care Unit with hematocrit dropped. He was transferred again to acute service. IVC filter placed, he has two inferior vena cava, two IVC filter placed in both inferior vena cava. He was continued on anticoagulation with Eliquis 5 mg p.o. b.i.d. He is comfortable in bed, in no acute distress. Hemoglobin and hematocrit is closely monitored, it has been stable for the past few days. PAST MEDICAL HISTORY: History of PE; DVT; cellulitis, right leg; Down syndrome; malnourished; history of GE reflux; history of multiple bowel surgeries. ALLERGIES: NO KNOWN DRUG ALLERGIES. SOCIAL HISTORY: Never smoked. No history of alcohol abuse. FAMILY HISTORY: Not significant. REVIEW OF SYSTEMS: As per HPI, rest of 12-point review of systems reviewed and negative. PHYSICAL EXAMINATION GENERAL: Comfortable in bed, in no acute distress. VITAL SIGNS: Temperature 98.7, heart rate 80 per minute, blood pressure 100/60, respiratory rate 18 per minute. HEENT: Normal. Pallor positive. NECK: No lymphadenopathy. CHEST: Air entry present and equal bilaterally. No added sounds. CARDIOVASCULAR: S1 and S2 normal. No murmur. No gallop. ABDOMEN: Soft, nontender. No hepatosplenomegaly. EXTREMITIES: Right leg dressing. No edema. No cyanosis. Swelling has decreased. NEUROLOGIC: Awake, alert, and oriented x3. No focal sensory or motor deficit. MEDICATIONS: Reviewed. LABORATORY DATA: Labs done on 11/29/2017; white count 7.2, hemoglobin 10.3, hematocrit 32.8, and platelet . Sodium 137, potassium 4, creatinine 0.7. ASSESSMENT: 1. Deep venous thrombosis, right leg. 2. Pulmonary embolism. 3. Occult gastrointestinal bleed. 4. Mentally challenged. 5. B12 deficiency. 6. Depression. PLAN: We will continue anticoagulation with Eliquis 5 mg p.o. b.i.d. Status post IVC filter placed. He has two inferior vena cava filter placed in both IVC. Hemoglobin and hematocrit has been stable for past few days. He completed 7 days of IM B12. He can continue once a month IM B12 and folic acid 1 mg p.o. daily. He is on Protonix for GI prophylaxis. We will continue to monitor hemoglobin and hematocrit closely. Thank you, Dr. Rey for allowing us to participate in Mr. Dee's care. Candace Murillo MD
[2017-11-30] MEDS: Cholecalciferol 400 Intl Units Tab PO SCH (10:41)
--- NOTE | 2017-11-30 23:19 | PN ---
DATE: 11/30/2017 PULMONARY PROGRESS NOTE REFERRING PHYSICIAN: Meme Rey MD. SUBJECTIVE: The patient is sitting up in a chair, doing the puzzle. Night was unremarkable. No headache. No rhinitis. No nausea. No vomiting. No diarrhea. Still has right leg swelling and tenderness. OBJECTIVE: GENERAL: No acute distress. VITAL SIGNS: Temp is 98, heart rate is 75, respiratory rate is 18, blood pressure is 99/79, pulse ox 100% on room air. HEENT: Moist mucous membrane. No ulcer or thrush. NECK: Supple. No JVD. LUNGS: Have a fair airflow with few rhonchi. HEART: S1 and S2. ABDOMEN: Soft, nontender. No organomegaly. EXTREMITIES: Right leg has some edema and tenderness. NEUROLOGIC: Awake, alert. Follows simple command. MEDICATIONS: He is on Bactroban ointment to affected area twice a day, vitamin D 50,000 units weekly, Eliquis is 5 mg twice a day, folic acid 1 mg daily, Protonix 40 mg twice a day, Reglan 5 mg before meals and at bedtime, Tylenol p.r.n. basis, vitamin D 4000 International Units daily. LABORATORY DATA: Reviewed and noted, no new lab is available since yesterday. IMPRESSION AND PLAN: Pulmonary embolism, right leg extensive deep venous thrombosis with edema and tenderness, status post inferior vena cava filter, intellectually disabled, history of partial gastrectomy in the remote past, also intestinal resection in the remote past, recurrent intestinal obstruction, vitamin B12 deficiency, decubitus ulcer, malnutrition, fall precaution. Continue anticoagulation. Encourage p.o. intake. Elevate right lower extremity. Thank you and we will follow with you. Eber Ziegler MD
[2017-12-01] MEDS: Pantoprazole 40 mg EC Tab PO SCH ×2 (05:29→17:16)
[2017-12-01] MEDS: Cholecalciferol 400 Intl Units Tab PO SCH (10:27)
--- NOTE | 2017-12-01 13:18 | PN ---
DATE: 11/30/2017 SUBJECTIVE: Patient is a 47-year-old male. Patient was seen and examined at the bedside on 11/30/2017, looking comfortable, playing with the puzzles in the activity room. Night was unremarkable. No fever. No chills. No nausea, vomiting or diarrhea. No hematuria, hematochezia. Still has dressing on the leg. Patient was not wearing . but looks comfortable. Upon touching right leg, it hurts as per patient. PHYSICAL EXAMINATION VITAL SIGNS: Temperature 98, heart rate 75, respiratory rate 18, blood pressure 100/70. HEENT: Head normocephalic, atraumatic. Eyes, PERRLA. Extraocular muscles are intact. Conjunctivae clear. Nose patent. Mucous membranes are moist. NECK: Supple. No carotid bruits. No JVD or thyromegaly. CHEST: Bilaterally symmetrical. HEART: S1, S2 positive. LUNGS: Clear to auscultation. ABDOMEN: Soft. Bowel sounds present. No organomegaly. EXTREMITIES: Right leg swollen and tender, has dressing on that. MEDICATIONS: Bactroban ointment on affected areas, vitamin D, Eliquis, folic acid, Protonix, Reglan, Tylenol and vitamin D. LABORATORY DATA: No new labs today, but reviewed old labs ASSESSMENT AND PLAN: Mr. Sean Dee is a 47-year-old male, mentally challenged, has a pulmonary emboli, right leg extensive deep venous thrombosis with cellulitis, edema and tenderness of the right leg status post inferior vena cava filter, in two inferior vena cavas, history of partial gastrectomy in the remote past, intestinal resection in the remote past, recurrent small bowel obstruction, iron deficiency and B12 deficiency, anemia status post multiple times blood transfusion, decubitus ulcer, malnutrition, history of fall. Continue Eliquis. Encourage p.o. intake. Out of bed, physical therapy. Gastric and deep vein thrombosis prophylaxis. Repeat labs. We will follow up. Meme Rey MD [facility]
--- NOTE | 2017-12-02 01:13 | PN ---
DATE: 12/01/2017 PULMONARY PROGRESS NOT REFERRING PHYSICIAN: Meme Rey MD. SUBJECTIVE: He is standing in the room, night was unremarkable. No headache, no rhinitis, no cough, no nausea, no vomiting. Still have the right leg some swelling and tenderness. OBJECTIVE: GENERAL: No acute distress. VITAL SIGNS: Temperature is 98, heart rate 69, respiratory rate is 18, blood pressure 99/67, pulse ox 97% on room air. HEENT: Moist mucous membrane. No ulcer or thrush noted. NECK: Supple. No JVD. LUNGS: Has fair airflow with rhonchi. HEART: S1 and S2. ABDOMEN: Soft, nontender. No organomegaly. EXTREMITIES: Right leg, still has some swelling and tenderness. NEUROLOGIC: Awake, alert. Follows simple command. MEDICATIONS: He is on vitamin D 50,000 units weekly, Eliquis 5 mg twice a day, folic acid 1 mg daily, calcium carbonate 500 mg daily, Protonix 40 mg twice a day, Reglan 5 mg before meals and at bedtime, Tylenol p.r.n., vitamin D 4000 international units daily. LABORATORY DATA: Reviewed, noted. No new lab is available. Microbiology, no data is available. IMPRESSION AND PLAN: Pulmonary embolism, right leg extensive deep venous thrombosis requiring inferior vena cava filter, intellectually disabled, history of partial gastrectomy, also history of hemicolectomy, recurrent intestinal obstruction, vitamin B12 deficiency, decubitus ulcer, malnutrition. Continue anticoagulation, vitamin B and vitamin D supplement, fall precaution, elevate the right lower extremity, JEFFERSON stocking. Thank you and we will follow with you. Eber Ziegler MD
[2017-12-02] MEDS: Pantoprazole 40 mg EC Tab PO SCH ×2 (05:15→17:00)
[2017-12-02 06:57] LABS: HEMOGLOBIN 9.4 g/dL (14.0-18.0); MEAN CORPUSCULAR HEMOGLOBIN 27.5 pg (25.0-35.0); MEAN CORPUSCULAR HGB CONC 31.2 g/dl (31.0-37.0); MEAN PLATELET VOLUME 9.2 fl (7.0-11.0); RBC 3.42 10^6/uL (3.5-6.1); RED CELL DISTRIBUTION WIDTH 16.9 % (11.5-14.5); WHITE BLOOD COUNT 4.9 10^3/ul (4.5-11.0)
[2017-12-02 07:11] LABS: BLOOD UREA NITROGEN 18 mg/dL (7-21); CALCIUM 8.6 mg/dL (8.4-10.5); GFR AFRICAN-AMERICAN > 60; GFR NON-AFRICAN AMERICAN > 60
--- NOTE | 2017-12-02 08:46 | PN ---
DATE: 12/01/2017 SUBJECTIVE: The patient is a 47-year-old male. The patient was seen and examined at the bedside, looking comfortable. No nausea, vomiting, diarrhea, hematuria or hematochezia. No headache. No dizziness. No chest pain. No palpitation. No fever, no chills. PHYSICAL EXAMINATION: VITAL SIGNS: Temperature 98.3, pulse 69, blood pressure 99/67, respiratory rate 16. HEENT: Head: Normocephalic, atraumatic. Eyes: PERRLA. Extraocular muscles intact. Conjunctivae clear. Nose patent. Mucous membranes moist. NECK: Supple. No carotid bruit, JVD or thyromegaly. CHEST: Bilaterally symmetrical. HEART: S1 and S2 positive. LUNGS: Clear to auscultation. ABDOMEN: Soft. Bowel sounds present. No organomegaly. EXTREMITIES: Upper extremities, no edema, no cyanosis. Lower extremities, right leg has dressings. NEUROLOGIC: The patient is awake and alert. Moving all four extremities. No focal deficits. Obeying simple orders. MEDICATIONS: Bactroban, vitamin D, Eliquis, folic acid, Os-Peter, Protonix, Reglan, Tylenol, vitamin B. LABORATORY DATA: We do not have labs today, but reviewed old labs. ASSESSMENT AND PLAN: a 47-year-old male, with multiple medical problems, has deep vein thrombosis, pulmonary emboli, right leg cellulitis, status post inferior vena cava filter, intellectually disabled, history of partial gastrectomy in the remote past, intestinal resection in the remote past, recurrent intestinal obstruction, vitamin B12 deficiency, decubitus ulcer, malnutrition. Fall precautions. Continue antibiotics. Local application. Blood thinner. Out of bed. Physical therapy. Gastric and deep vein thrombosis prophylaxes. Repeat labs. Meme Rey MD MTDD
[2017-12-02] MEDS: Cholecalciferol 400 Intl Units Tab PO SCH (11:00)
--- NOTE | 2017-12-02 14:42 | CP.PCM.PN ---
<Cristina Alford - Last Filed: 12/02/17 14:39> Subjective - Date & Time of Evaluation Date of Evaluation: 12/02/17 Time of Evaluation: 10:45 - Subjective Subjective: Chief complaint: R leg swelling 47 yr male w/ history of intellectual disability, GERD, aspiration pneumonia, multiple abdominal surgeries, perforation of stomach, anxiety, recurrent pneumonia, & chronic constipation. R leg cellulitis treated with eliquis and IVC filter insertion done. Anemia stabilized and resolved after multiple blood transfusions. Today seen in activity room coloring. Denies any leg pain. Pt is a poor historian due to his mental disability. Denies any fever , chills, chest pain, shortness of breath, abdominal pain, nausea, vomiting or urinary problems. Objective - Vital Signs/Intake and Output Vital Signs (last 24 hours): Temp Pulse Resp BP Pulse Ox 98.3 F 69 16 99/67 L 97 12/01/17 17:46 12/01/17 17:46 12/01/17 17:46 12/01/17 17:46 12/01/17 17:46 - Medications Medications: Current Medications Acetaminophen (Tylenol 325mg Tab) 650 mg PO Q4H PRN PRN Reason: pain fever Last Admin: 11/29/17 18:13 Dose: 650 mg Apixaban (Eliquis) 5 mg PO BID ETHAN PRN Reason: Protocol Last Admin: 12/02/17 11:00 Dose: 5 mg Calcium Carbonate (Oscal) 500 mg PO DAILY [facility] Last Admin: 12/02/17 11:00 Dose: 500 mg Ergocalciferol (Drisdol 50,000 Intl Units Cap) 1 cap PO QWK ETHAN PRN Reason: Protocol Folic Acid (Folic Acid) 1 mg PO DAILY ETHAN PRN Reason: Protocol Last Admin: 12/02/17 11:00 Dose: 1 mg Metoclopramide HCl (Reglan) 5 mg PO ACHS ETHAN PRN Reason: Protocol Last Admin: 12/02/17 12:30 Dose: 5 mg Mupirocin (Bactroban Ointment) 0 gm TOP BID ETHAN PRN Reason: Protocol Last Admin: 12/02/17 11:00 Dose: 1 applic Pantoprazole Sodium (Protonix Ec Tab) 40 mg PO 0600,1600 ETHAN PRN Reason: Protocol Last Admin: 12/02/17 05:15 Dose: 40 mg Vitamin D (Vitamin D 400 Intl Units Tab) 400 intlu PO DAILY ETHAN Last Admin: 12/02/17 11:00 Dose: 400 intlu - Labs Labs: 12/02/17 06:20 12/02/17 06:20 - Constitutional Appears: Well - Head Exam Head Exam: ATRAUMATIC, NORMAL INSPECTION, NORMOCEPHALIC - Eye Exam Eye Exam: EOMI, Normal appearance, PERRL Pupil Exam: NORMAL ACCOMODATION, PERRL - ENT Exam ENT Exam: Mucous Membranes Moist, Normal Exam - Neck Exam Neck Exam: Full ROM, Normal Inspection. absent: Lymphadenopathy - Respiratory Exam Respiratory Exam: Clear to Ausculation Bilateral, NORMAL BREATHING PATTERN - Cardiovascular Exam Cardiovascular Exam: REGULAR RHYTHM, +S1, +S2. absent: Murmur - GI/Abdominal Exam GI & Abdominal Exam: Soft, Normal Bowel Sounds. absent: Tenderness - Extremities Exam Additional comments: R leg erythema, edema +1, dressing C/D/I - Back Exam Back Exam: NORMAL INSPECTION - Neurological Exam Neurological Exam: Alert, Awake, Oriented x3 - Psychiatric Exam Psychiatric exam: Normal Affect, Normal Mood - Skin Skin Exam: Dry, Intact, Pallor, Warm Assessment and Plan (1) Anemia Status: Acute (2) Cellulitis Status: Acute (3) Colonic obstruction Status: Chronic (4) DVT (deep venous thrombosis) Status: Chronic (5) Mentally disabled Status: Chronic - Assessment and Plan (Free Text) Plan: Bacitracin BID to R leg. Continue PT & OT. Tolerating diet. JEFFERSON stockings ordered. Carol on board. Pain management: tylenol prn Consults: Pulmonary - Dr. Ziegler ID - Dr. Del Rosario IR - Dr. Chloe Easley GI - Dr. Davies Surgery - Dr. Brown Henson Hemo/Onc - Dr. Murillo Podiatry - [facility] - Reviewed: CXR = WNL R lower ext US = R extensive iliofemoral DVT ECG = NSR CTA chest/abd/pelvis = distal colonic obstruction w/ severe dilation of the proximal colon. the transition point is seen in rectosigmoid. very small bilateral pulmonary emboli CT chest = VQ scan = low probability for pulmonary emboli <Meme Rey - Last Filed: 12/03/17 09:17> Objective - Vital Signs/Intake and Output Vital Signs (last 24 hours): Temp Pulse Resp BP Pulse Ox 98.4 F 90 16 105/62 92 L 12/02/17 17:44 12/02/17 17:44 12/02/17 17:44 12/02/17 17:44 12/02/17 17:44 - Medications Medications: Current Medications Acetaminophen (Tylenol 325mg Tab) 650 mg PO Q4H PRN PRN Reason: pain fever Last Admin: 11/29/17 18:13 Dose: 650 mg Apixaban (Eliquis) 5 mg PO BID ETHAN PRN Reason: Protocol Last Admin: 12/02/17 18:53 Dose: 5 mg Calcium Carbonate (Oscal) 500 mg PO DAILY [facility] Last Admin: 12/02/17 11:00 Dose: 500 mg Ergocalciferol (Drisdol 50,000 Intl Units Cap) 1 cap PO QWK ETHAN PRN Reason: Protocol Folic Acid (Folic Acid) 1 mg PO DAILY ETHAN PRN Reason: Protocol Last Admin: 12/02/17 11:00 Dose: 1 mg Metoclopramide HCl (Reglan) 5 mg PO ACHS ETHAN PRN Reason: Protocol Last Admin: 12/03/17 09:03 Dose: 5 mg Mupirocin (Bactroban Ointment) 0 gm TOP BID ETHAN PRN Reason: Protocol Last Admin: 12/02/17 18:53 Dose: 1 applic Pantoprazole Sodium (Protonix Ec Tab) 40 mg PO 0600,1600 ETHAN PRN Reason: Protocol Last Admin: 12/03/17 05:42 Dose: 40 mg Vitamin D (Vitamin D 400 Intl Units Tab) 400 intlu PO DAILY [facility] Last Admin: 12/02/17 11:00 Dose: 400 intlu - Labs Labs: 12/03/17 05:00 12/03/17 05:00 Assessment and Plan - Assessment and Plan (Free Text) Plan: 47 yr male w/ history of intellectual disability, GERD, aspiration pneumonia, multiple abdominal surgeries, perforation of stomach, anxiety, recurrent pneumonia, & chronic constipation. R leg cellulitis treated with eliquis and IVC filter insertion done. Anemia stabilized and resolved after multiple blood transfusions. Today seen in activity room coloring. Denies any leg pain. Pt is a poor historian due to his mental disability. Denies any fever , chills, chest pain, shortness of breath, abdominal pain, nausea, vomiting or urinary problems.pt is seen and examined at bed side , looking comfortable . agreed all above , relaxing in activity room , doing colouring , no change of status , will f/u
--- NOTE | 2017-12-02 17:05 | PN ---
DATE: 12/02/2017 PULMONARY PROGRESS NOTE REFERRING PHYSICIAN: Meme Rey MD. SUBJECTIVE: He is participating in physical therapy. Night was unremarkable. No headache. No rhinitis. No nausea. No vomiting. No diarrhea. Still has the right leg swelling and tenderness. OBJECTIVE: GENERAL: In no acute distress. VITAL SIGNS: Temp is 98, heart rate is 97, respiratory rate is 18, blood pressure 109/88, pulse ox 99% on room air. HEENT: Moist mucous membrane. No ulcer or thrush noted. NECK: Supple. No JVD. LUNGS: Have a fair airflow with rhonchi. HEART: S1 and S2. ABDOMEN: Soft and nontender. No organomegaly. EXTREMITIES: Right leg has edema and swelling. It is tender to touch. NEUROLOGICAL: Awake and alert. Follows simple command. LABORATORY DATA: Shows hemoglobin 9.4, hematocrit 30.1, WBC 4.9, platelet is 417. Chemistry shows sodium 137, potassium 4.1, chloride 107, bicarbonate 25, BUN 18, creatinine 0.7, glucose 82, calcium 8.6. MEDICATIONS: He is on Bactroban ointment to affected area twice a day, vitamin D 50,000 units weekly, Eliquis 5 mg twice a day, folic acid 1 mg daily, calcium carbonate 500 mg daily, Protonix 40 mg daily, Reglan 5 mg before meals and at bedtime, Tylenol p.r.n., vitamin D 4000 International Units daily. IMPRESSION AND PLAN: Pulmonary embolism, right leg extensive deep venous thrombosis requiring inferior vena cava filter, intellectually disabled, history of partial gastrectomy, also has a hemicolectomy, recurrent intestinal obstruction, vitamin B12 deficiency, vitamin D deficiency, decubiti ulcer. Pulmonary point of view, doing okay. Continue anticoagulation. Follow H and H closely. Fall precaution. Elevate right lower extremity. Continue therapy. Thank you and we will follow with you. Eber Ziegler MD
--- NOTE | 2017-12-02 21:12 | CP.PCM.PN ---
Subjective - Date & Time of Evaluation Date of Evaluation: 12/02/17 Time of Evaluation: 13:00 - Subjective Subjective: Comfortable in play room. No dark colored stools. Ambulating without difficulty. On anticoagulation with eliquis. Objective - Vital Signs/Intake and Output Vital Signs (last 24 hours): Temp Pulse Resp BP Pulse Ox 98.4 F 90 16 105/62 92 L 12/02/17 17:44 12/02/17 17:44 12/02/17 17:44 12/02/17 17:44 12/02/17 17:44 - Medications Medications: Current Medications Acetaminophen (Tylenol 325mg Tab) 650 mg PO Q4H PRN PRN Reason: pain fever Last Admin: 11/29/17 18:13 Dose: 650 mg Apixaban (Eliquis) 5 mg PO BID ETHAN PRN Reason: Protocol Last Admin: 12/02/17 18:53 Dose: 5 mg Calcium Carbonate (Oscal) 500 mg PO DAILY [facility] Last Admin: 12/02/17 11:00 Dose: 500 mg Ergocalciferol (Drisdol 50,000 Intl Units Cap) 1 cap PO QWK ETHAN PRN Reason: Protocol Folic Acid (Folic Acid) 1 mg PO DAILY ETHAN PRN Reason: Protocol Last Admin: 12/02/17 11:00 Dose: 1 mg Metoclopramide HCl (Reglan) 5 mg PO ACHS ETHAN PRN Reason: Protocol Last Admin: 12/02/17 17:29 Dose: 5 mg Mupirocin (Bactroban Ointment) 0 gm TOP BID ETHAN PRN Reason: Protocol Last Admin: 12/02/17 18:53 Dose: 1 applic Pantoprazole Sodium (Protonix Ec Tab) 40 mg PO 0600,1600 ETHAN PRN Reason: Protocol Last Admin: 12/02/17 17:00 Dose: 40 mg Vitamin D (Vitamin D 400 Intl Units Tab) 400 intlu PO DAILY ETHAN Last Admin: 12/02/17 11:00 Dose: 400 intlu - Labs Labs: 12/02/17 06:20 12/02/17 06:20 - Constitutional Appears: Non-toxic - Head Exam Head Exam: ATRAUMATIC, NORMAL INSPECTION - Eye Exam Eye Exam: Normal appearance - ENT Exam ENT Exam: Mucous Membranes Moist, Normal Exam - Neck Exam Neck Exam: Normal Inspection - Respiratory Exam Respiratory Exam: Clear to Ausculation Bilateral, NORMAL BREATHING PATTERN - Cardiovascular Exam Cardiovascular Exam: REGULAR RHYTHM, +S1, +S2 - GI/Abdominal Exam GI & Abdominal Exam: Soft, Normal Bowel Sounds - Extremities Exam Extremities Exam: Normal Capillary Refill, Normal Inspection - Back Exam Back Exam: NORMAL INSPECTION - Neurological Exam Neurological Exam: Awake, Normal Gait, Oriented x3 - Skin Skin Exam: Normal Color, Warm Assessment and Plan - Assessment and Plan (Free Text) Assessment: 1. DVT right leg, B/L PE. on eliquis 5 mg PO BID. continue same. 2. Heme : Hb dropped. iron studies ordered. might need IV iron. s/p several units of PRBCs. 3. Participating in PT. Thank you DR. Rey for allowing us to participate in his care.
[2017-12-03] MEDS: Pantoprazole 40 mg EC Tab PO SCH ×2 (05:42→17:52)
[2017-12-03 06:02] LABS: BASO # 0.03 K/mm3 (0.0-2.0); BASO % 0.5 % (0.0-3.0); EOS # 0.2 (0.0-0.7); GRAN # 3.37 (1.4-6.5); GRAN % 58.9 % (50.0-68.0); LYMPH # 1.5 (1.2-3.4); MEAN CORPUSCULAR HEMOGLOBIN 27.4 pg (25.0-35.0); MEAN CORPUSCULAR HGB CONC 31.1 g/dl (31.0-37.0); MONO # 0.6 (0.1-0.6); MONO % 10.6 % (1.0-6.0); RBC 2.92 10^6/uL (3.5-6.1); RED CELL DISTRIBUTION WIDTH 16.8 % (11.5-14.5); WHITE BLOOD COUNT 5.7 10^3/ul (4.5-11.0)
[2017-12-03 06:27] LABS: IRON 33 ug/dL (45-180)
[2017-12-03 06:37] LABS: % IRON SATURATION 13 % (20-55); TOTAL IRON BINDING CAPACITY 252 ug/dL (261-462)
[2017-12-03 07:20] LABS: BLOOD UREA NITROGEN 31 mg/dL (7-21); CALCIUM 8.7 mg/dL (8.4-10.5); GFR AFRICAN-AMERICAN > 60; GFR NON-AFRICAN AMERICAN > 60
--- NOTE | 2017-12-03 10:14 | PN ---
DATE: 12/03/2017 FOLLOWUP SUBJECTIVE: He is comfortable in bed, in no acute distress. Participating in physical therapy. Hematocrit dropped to 8 g/dL. On 11/28/2017, it was 10.4 g/dL. Denies any shortness of breath. No chest pain. No dark-colored stools. REVIEW OF SYSTEMS: As per HPI. Rest of 12-point review of systems reviewed negative. PHYSICAL EXAMINATION: GENERAL: Comfortable in bed, in no acute distress. VITAL SIGNS: Vitals stable. Temperature 98.4, heart rate 90 per minute, blood pressure 105/62, respiratory rate 16 per minute, oxygen saturation 92% on room air. HEENT: Pallor positive. NECK: No lymphadenopathy. CHEST: Air entry present and equal bilaterally. No added sounds. CARDIOVASCULAR: S1, S2 normal. No murmur. No gallop. ABDOMEN: Soft, nontender. No hepatosplenomegaly. EXTREMITIES: No edema. SPINE: Nontender. SKIN: No petechiae. No rash. LABORATORY DATA: White count 5.7, hemoglobin 8, hematocrit 25.7, platelet 397. Iron 33, iron saturation 13%. BMP within normal limits. Ferritin pending. MEDICATIONS: Tylenol 650 q. 4 hours p.r.n., Eliquis 5 mg p.o. b.i.d., vitamin D and calcium, Reglan, Bactroban, Protonix, vitamin D. ASSESSMENT AND PLAN: 1. Severe iron-deficiency anemia. 2. Right leg deep venous thrombosis and pulmonary embolism. 3. Mentally challenged. 4. Multiple abdominal surgeries and occult gastrointestinal bleed. PLAN: Hematocrit dropped again to 8 g/dL. He has received several units of blood transfusion during this hospitalization. Iron study showed low iron. I will give iron sucrose 200 mg daily. He will need continuation of IV iron to maintain normal hemoglobin. If he continues to drop hematocrit, anticoagulation will be challenging then. We will continue anticoagulation for now, Eliquis 5 mg p.o. b.i.d. We will need continuous surveillance upon discharge from the hospital. Renal function is within normal limits. No evidence of hemolysis. Thank you Dr. Rey for allowing us to participate in Mr. Dee's care. Candace Murillo MD [facility] # [id number]
[2017-12-03] MEDS: Cholecalciferol 400 Intl Units Tab PO SCH (11:47)
[2017-12-03 12:32] LABS: FERRITIN 22.1 ng/mL
--- NOTE | 2017-12-04 01:38 | PN ---
DATE: PULMONARY PROGRESS NOTE REFERRING PHYSICIAN: Meme Rey MD SUBJECTIVE: The patient is sitting up in bed, having dinner. Night was unremarkable. No headache, no rhinitis. No nausea, no vomiting. No diarrhea. Still has right leg swelling, but pain is better. OBJECTIVE: GENERAL: In no acute distress. VITAL SIGNS: Temperature is 98, heart rate is 99, respiratory rate is 16, blood pressure 94/69, pulse ox room air. HEENT: Moist mucous membrane. No ulcer or thrush noted. NECK: Supple. No JVD. LUNGS: Fair airflow with rhonchi. HEART: S1 and S2. ABDOMEN: Soft, nontender, no organomegaly. EXTREMITIES: Right leg has swelling. It is tender to touch. NEUROLOGIC: Awake, alert, and follows simple command. MEDICATIONS: He is on Bactroban ointment to rectal area, vitamin D 50,000 units weekly, Eliquis 5 mg twice a day, folic acid 1 mg daily, Os-Peter 500 mg daily, Protonix 40 mg twice a day, Reglan 5 mg before meals and at bedtime, Tylenol p.r.n., vitamin D 4000 units daily report. LABORATORY DATA: Shows hemoglobin 8.0, hematocrit 25.7, WBC 5.7, platelet is 397. Sodium 138, potassium 3.9, chloride 107, bicarbonate 25, BUN 31, creatinine 0.8, iron is 33, ferritin is 22. IMPRESSION AND PLAN: Pulmonary embolism, right leg extensive deep venous thrombosis and thrombus requiring inferior vena cava filter, intellectually disabled, history of partial gastrectomy and hemicolectomy in the remote past with recurrent intestinal obstruction, vitamin D deficiency, vitamin B12 deficiency, history of decubitus ulcer. Pulmonary point of view, doing okay. Spoke to nursing staff. Elevate right lower extremity, continue anticoagulation. Aspiration precaution. Fall precaution. Thank you and we will follow with you. Eber Ziegler MD
[2017-12-04] MEDS: Pantoprazole 40 mg EC Tab PO SCH ×2 (05:52→17:26)
[2017-12-04 07:07] LABS: BASO # 0.05 K/mm3 (0.0-2.0); BASO % 0.9 % (0.0-3.0); EOS # 0.3 (0.0-0.7); EOS % 5.2 % (1.5-5.0); GRAN # 3.4 (1.4-6.5); GRAN % 60.4 % (50.0-68.0); HEMOGLOBIN 7.7 g/dL (14.0-18.0); LYMPH # 1.2 (1.2-3.4); LYMPH % 21.2 % (22.0-35.0); MEAN CELL VOLUME 88.4 fl (80.0-105.0); MEAN CORPUSCULAR HEMOGLOBIN 27.9 pg (25.0-35.0); MEAN CORPUSCULAR HGB CONC 31.6 g/dl (31.0-37.0); MONO # 0.7 (0.1-0.6); MONO % 12.3 % (1.0-6.0); RBC 2.76 10^6/uL (3.5-6.1); RED CELL DISTRIBUTION WIDTH 17.6 % (11.5-14.5); WHITE BLOOD COUNT 5.6 10^3/ul (4.5-11.0)
[2017-12-04] MEDS: Cholecalciferol 400 Intl Units Tab PO SCH (09:59)
[2017-12-04] MEDS ORDERED: Ergocalciferol 50,000 Intl Units Cap PO SCH (10:00)
--- NOTE | 2017-12-04 10:06 | PN ---
DATE: SUBJECTIVE: The patient is 47-year-old male. The patient was seen and examined at the bedside, looking comfortable. No nausea, vomiting, diarrhea. No hematuria or hematochezia. No headache. No dizziness. Still has swelling of the right leg, has a dressing on that. No fever. No chills. PHYSICAL EXAMINATION: VITAL SIGNS: Temperature 98.4, respiratory rate 20, heart rate 90, blood pressure 105/62. HEENT: Head normocephalic, atraumatic. Eyes PERRLA. Extraocular muscles intact. Conjunctivae clear. Nose patent. Mucous membrane moist. NECK: Supple. No carotid bruit. No JVD or thyromegaly. CHEST: Bilaterally symmetrical. HEART: S1 and S2 positive. LUNGS: Clear to auscultation. ABDOMEN: Soft. Bowel sounds positive. No organomegaly. EXTREMITIES: No edema. No cyanosis. NEUROLOGICAL: The patient is awake, alert. Moving all 4 extremities. No focal deficits. LABORATORY DATA: White blood cells 5.7, hemoglobin 8.0, hematocrit 35.7, platelets 397. Sodium 138, potassium 3.9, BUN 31, creatinine 0.8, glucose 81. MEDICATIONS: Tylenol, Eliquis, vitamin D, Reglan, Bactrim, Protonix. ASSESSMENT AND PLAN: Mr. Sean Dee, 47-year-old male with anemia, iron deficiency; right leg deep vein thrombosis; right leg cellulitis, got antibiotics; pulmonary embolism; mentally challenged; multiple abdominal surgeries; occult gastrointestinal bleeding. The patient received several units of blood transfusion during hospitalization. Still iron is low. Dr. Murillo will give sucrose 200 mg daily, iron sucrose and we will continue iron infusion to maintain normal hemoglobin. If he continues to drop hemoglobin, anticoagulation will be challenging then. Right now, we will continue Eliquis 5 mg twice a day. We will continue present treatment, physical therapy. Meme Rey MD
[2017-12-04 11:14] VITALS: RESP 18
--- NOTE | 2017-12-04 13:28 | CP.PCM.PN ---
<Cristina Alford - Last Filed: 12/04/17 13:26> Subjective - Date & Time of Evaluation Date of Evaluation: 12/04/17 Time of Evaluation: 09:30 - Subjective Subjective: Chief complaint: anemia, pallor 47 yr male w/ history of intellectual disability, GERD, aspiration pneumonia, multiple abdominal surgeries, perforation of stomach, anxiety, recurrent pneumonia, & chronic constipation. R leg cellulitis treated with eliquis and IVC filter insertion done. Multiple blood transfusions. Anemia persists, H/H now 7.7/24.4 (dropped from 10.4/33.5). Today, seen in his room appearing weak and pale. Denies any leg pain. Pt is a poor historian due to his mental disability. Denies any fever, chills, chest pain, shortness of breath, abdominal pain, nausea, vomiting or urinary problems. Objective - Vital Signs/Intake and Output Vital Signs (last 24 hours): Temp Pulse Resp BP Pulse Ox 98.3 F 114 H 18 111/69 95 12/04/17 11:13 12/04/17 11:13 12/04/17 11:13 12/04/17 11:13 12/04/17 11:13 - Medications Medications: Current Medications Acetaminophen (Tylenol 325mg Tab) 650 mg PO Q4H PRN PRN Reason: pain fever Last Admin: 11/29/17 18:13 Dose: 650 mg Apixaban (Eliquis) 5 mg PO BID [facility] PRN Reason: Protocol Last Admin: 12/04/17 09:59 Dose: 5 mg Calcium Carbonate (Oscal) 500 mg PO DAILY [facility] Last Admin: 12/04/17 09:58 Dose: 500 mg Ergocalciferol (Drisdol 50,000 Intl Units Cap) 1 cap PO QWK [facility] PRN Reason: Protocol Last Admin: 12/04/17 09:58 Dose: 1 cap Folic Acid (Folic Acid) 1 mg PO DAILY [facility] PRN Reason: Protocol Last Admin: 12/04/17 09:59 Dose: 1 mg Metoclopramide HCl (Reglan) 5 mg PO ACHS [facility] PRN Reason: Protocol Last Admin: 12/04/17 13:12 Dose: 5 mg Mupirocin (Bactroban Ointment) 0 gm TOP BID [facility] PRN Reason: Protocol Last Admin: 12/04/17 10:01 Dose: 1 applic Pantoprazole Sodium (Protonix Ec Tab) 40 mg PO 0600,1600 [facility] PRN Reason: Protocol Last Admin: 12/04/17 05:52 Dose: 40 mg Vitamin D (Vitamin D 400 Intl Units Tab) 400 intlu PO DAILY [facility] Last Admin: 12/04/17 09:59 Dose: 400 intlu - Labs Labs: 12/04/17 06:10 12/03/17 05:00 - Constitutional Appears: Chronically Ill - Eye Exam Eye Exam: EOMI, Normal appearance, PERRL Pupil Exam: NORMAL ACCOMODATION, PERRL - ENT Exam ENT Exam: Mucous Membranes Moist, Normal Exam - Neck Exam Neck Exam: Full ROM, Normal Inspection. absent: Lymphadenopathy - Respiratory Exam Respiratory Exam: Clear to Ausculation Bilateral, NORMAL BREATHING PATTERN - Cardiovascular Exam Cardiovascular Exam: REGULAR RHYTHM, +S1, +S2. absent: Murmur - GI/Abdominal Exam GI & Abdominal Exam: Soft, Normal Bowel Sounds. absent: Tenderness - Extremities Exam Additional comments: R leg erythema, edema +1, dressing C/D/I - Back Exam Back Exam: NORMAL INSPECTION - Neurological Exam Neurological Exam: Alert, Awake, CN II-XII Intact, Normal Gait, Oriented x3 - Psychiatric Exam Psychiatric exam: Normal Affect, Normal Mood - Skin Skin Exam: Pallor Assessment and Plan (1) Anemia Status: Acute (2) Cellulitis Status: Acute (3) Colonic obstruction Status: Chronic (4) DVT (deep venous thrombosis) Status: Chronic (5) Mentally disabled Status: Chronic - Assessment and Plan (Free Text) Plan: Labs ordered. Consider another transfusion. Bacitracin BID to R leg. Continue PT & OT. Tolerating diet. JEFFERSON stockings ordered. Eliquis on board. Pain management: tylenol prn Consults: Pulmonary - Dr. Ziegler ID - Dr. Del Rosario IR - Dr. Chloe Easley GI - Dr. Davies Surgery - Dr. Brown Henson Hemo/Onc - Dr. Murillo Podiatry - Dr. Wilson Wound Care - Reviewed: CXR = WNL R lower ext US = R extensive iliofemoral DVT ECG = NSR CTA chest/abd/pelvis = distal colonic obstruction w/ severe dilation of the proximal colon. the transition point is seen in rectosigmoid. very small bilateral pulmonary emboli CT chest = VQ scan = low probability for pulmonary emboli <Meme Rey - Last Filed: 12/04/17 21:50> Objective - Vital Signs/Intake and Output Vital Signs (last 24 hours): Temp Pulse Resp BP Pulse Ox 98.3 F 114 H 18 111/69 95 12/04/17 11:13 12/04/17 11:13 12/04/17 11:13 12/04/17 11:13 12/04/17 11:13 - Medications Medications: Current Medications Acetaminophen (Tylenol 325mg Tab) 650 mg PO Q4H PRN PRN Reason: pain fever Last Admin: 11/29/17 18:13 Dose: 650 mg Apixaban (Eliquis) 5 mg PO BID [facility] PRN Reason: Protocol Last Admin: 12/04/17 17:26 Dose: 5 mg Calcium Carbonate (Oscal) 500 mg PO DAILY [facility] Last Admin: 12/04/17 09:58 Dose: 500 mg Ergocalciferol (Drisdol 50,000 Intl Units Cap) 1 cap PO QWK [facility] PRN Reason: Protocol Last Admin: 12/04/17 09:58 Dose: 1 cap Folic Acid (Folic Acid) 1 mg PO DAILY [facility] PRN Reason: Protocol Last Admin: 12/04/17 09:59 Dose: 1 mg Iron Sucrose 100 mg/ Sodium (Chloride) 105 mls @ 210 mls/hr IVPB ONCE ONE Stop: 12/04/17 22:14 Metoclopramide HCl (Reglan) 5 mg PO ACHS [facility] PRN Reason: Protocol Last Admin: 12/04/17 17:27 Dose: 5 mg Mupirocin (Bactroban Ointment) 0 gm TOP BID [facility] PRN Reason: Protocol Last Admin: 12/04/17 17:26 Dose: 1 applic Pantoprazole Sodium (Protonix Ec Tab) 40 mg PO 0600,1600 [facility] PRN Reason: Protocol Last Admin: 12/04/17 17:26 Dose: 40 mg Vitamin D (Vitamin D 400 Intl Units Tab) 400 intlu PO DAILY [facility] Last Admin: 12/04/17 09:59 Dose: 400 intlu - Labs Labs: 12/04/17 06:10 12/03/17 05:00 Assessment and Plan - Assessment and Plan (Free Text) Plan: 47 yr male w/ history of intellectual disability, GERD, aspiration pneumonia, multiple abdominal surgeries, perforation of stomach, anxiety, recurrent pneumonia, & chronic constipation. R leg cellulitis treated with eliquis and IVC filter insertion done. Multiple blood transfusions. Anemia persists, H/H now 7.7/24.4 (dropped from 10.4/33.5). Today, seen in his room appearing weak and pale. Denies any leg pain. Pt is a poor historian due to his mental disability. Denies any fever, chills, chest pain, shortness of breath, abdominal pain, nausea, vomiting or urinary problems.pt is seen and examined at bed side , looking comfortable , agreed all above , will f/u
[2017-12-04] MEDS ORDERED: Iron Sucrose 100 mg/5 ml Inj IVP ONE (19:19)
[2017-12-04] MEDS ORDERED: Iron Sucrose 100 mg/5 ml Inj IVPB ONE (21:28)
--- NOTE | 2017-12-04 23:27 | PN ---
DATE: 12/04/2017 PULMONARY PROGRESS NOTE REFERRING PHYSICIAN: Meme Rey MD. SUBJECTIVE: He is lying in the bed. Day was unremarkable. Participating in therapy. Leg pain is improving. No nausea. No vomiting. No diarrhea. PHYSICAL EXAMINATION: GENERAL: In no acute distress. VITAL SIGNS: Temperature is 98, heart rate 114, respiratory rate is 18, blood pressure 111/69, pulse ox 95% on room air. HEENT: Moist mucous membrane. No ulcer or thrush noted. NECK: Supple. No JVD. LUNGS: Have fair airflow with rhonchi. HEART: S1 and S2. ABDOMEN: Soft, nontender. No organomegaly. EXTREMITIES: Right leg edema, tender to touch. NEUROLOGIC: Awake, alert, follows simple command. MEDICATIONS: He is on Bactroban ointment to affected area twice a day, vitamin D 50,000 units weekly, Eliquis 5 mg twice a day, folic acid 1 mg daily, calcium carbonate 500 mg daily, Protonix 40 mg twice a day, Reglan 5 mg before meals and at bedtime, Tylenol p.r.n., vitamin D 400 International Units daily. LABORATORY DATA: Shows hemoglobin 7.7, hematocrit 24.4, WBC 5.6, platelet count is 350. Sodium 138, potassium 3.9 from yesterday, iron is 33, ferritin is only 22. IMPRESSION AND PLAN: Pulmonary embolism; right leg extensive deep venous thrombosis, status post inferior vena cava filter; intellectually disabled; history of partial gastrectomy and hemicolectomy with recurrent intestinal stenosis and obstruction; vitamin D deficiency; vitamin B12 deficiency; iron deficiency; decubitus ulcer. We will continue anticoagulation. P.o. Reglan. Gastric prophylaxis. Continue vitamin D and supplement B12. We will give few doses of iron IV because of unreliable absorption because of gastrectomy for him. Thank you and we will follow with you. Eber Ziegler MD
[2017-12-05] MEDS: Pantoprazole 40 mg EC Tab PO SCH ×2 (06:44→16:54)
[2017-12-05 07:56] LABS: BASO # 0.05 K/mm3 (0.0-2.0); BASO % 0.9 % (0.0-3.0); EOS # 0.2 (0.0-0.7); EOS % 4.4 % (1.5-5.0); GRAN # 3.32 (1.4-6.5); GRAN % 61.4 % (50.0-68.0); HEMOGLOBIN 7.3 g/dL (14.0-18.0); LYMPH # 1.2 (1.2-3.4); LYMPH % 22.2 % (22.0-35.0); MEAN CELL VOLUME 88.3 fl (80.0-105.0); MEAN CORPUSCULAR HEMOGLOBIN 27.7 pg (25.0-35.0); MEAN CORPUSCULAR HGB CONC 31.3 g/dl (31.0-37.0); MEAN PLATELET VOLUME 9.1 fl (7.0-11.0); MONO # 0.6 (0.1-0.6); MONO % 11.1 % (1.0-6.0); RBC 2.64 10^6/uL (3.5-6.1); RED CELL DISTRIBUTION WIDTH 17.7 % (11.5-14.5); WHITE BLOOD COUNT 5.4 10^3/ul (4.5-11.0)
[2017-12-05 09:08] LABS: ALB/GLOB RATIO 0.8 (1.1-1.8); ALBUMIN 2.1 g/dL (3.0-4.8); ALT/SGPT 32 U/L (7-56); AST/SGOT 20 U/L (17-59); BLOOD UREA NITROGEN 21 mg/dL (7-21); CALCIUM 8.3 mg/dL (8.4-10.5); GFR AFRICAN-AMERICAN > 60; GFR NON-AFRICAN AMERICAN > 60
[2017-12-05] MEDS: Cholecalciferol 400 Intl Units Tab PO SCH (10:17)
[2017-12-05 13:43] VITALS: BP 90/59; PULSE 102; TEMP 97.1; O2SAT 97
--- NOTE | 2017-12-06 00:26 | PN ---
DATE: SUBJECTIVE: The patient was seen and examined on the bedside. Looking comfortable. Looks pale. No nausea, vomiting, or diarrhea. No hematuria or hematochezia. No swelling of upper extremities. No headache. No dizziness. The patient is a very poor historian. PHYSICAL EXAMINATION: VITAL SIGNS: Temperature 97.1, pulse 102, blood pressure 90/59, respiratory rate 18. HEENT: Head normocephalic, atraumatic. Eyes, PERRLA. Extraocular muscles intact. Conjunctivae clear. Nose patent. Mucous membrane moist. NECK: Supple, no carotid bruit. No JVD or thyromegaly. CHEST: Bilaterally symmetrical. HEART: S1 and S2 positive. LUNGS: Clear to auscultation. ABDOMEN: Soft, bowel sounds positive. No organomegaly. EXTREMITIES: Upper extremities, no edema, no cyanosis. Lower extremities, right leg has dressing. NEUROLOGICAL: The patient is awake and alert. Moving all 4 extremities. No focal deficits. MEDICATIONS: Bactroban cream, vitamin D, Eliquis, folic acid, Os-Peter, Protonix, Reglan, Tylenol, vitamin D. LABORATORY DATA: White blood cells 5.4; hemoglobin 7.3, yesterday was 7.7, before that was 8, before that was 9.4, before that was 10.3, and before that was 10.4, is constantly dropping; hematocrit 23.3, platelets 342. Sodium 135, potassium 3.8, BUN 21, creatinine 0.8, calcium 8.3. ASSESSMENT AND PLAN: Mr. Sean Dee is a 47-year-old male with anemia, acute on chronic, had multiple times of blood transfusion, but still hemoglobin is dropping slowly. The patient is on Eliquis for pulmonary emboli and deep vein thrombosis. Length of time discussion done with Dr. 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 Dr. Davies to check on GI may be that is the cause of bleeding. The patient has inferior vena cava filter, actually he has 2 filters because he has two inferior vena cavas. The patient is mentally challenged. History of small bowel obstruction, right leg stent with deep vein thrombosis and extensive cellulitis, history of partial gastrectomy and hemicolectomy with recurrent small bowel obstruction, vitamin D deficiency, iron deficiency, decubitus ulcer. Reglan because of the patient's gastroparesis. Gastric prophylaxis, replacement of vitamin D and B12. The patient is getting 2 units of packed red blood cells today, and discussion done with Dr. Murillo. We will make treatment plan after Dr. Davies 's input. Meme Rey MD MTDD
--- NOTE | 2017-12-06 03:04 | PN ---
DATE: 12/05/2017 PULMONARY PROGRESS NOTE REFERRING PHYSICIAN: Dr. Meme Rey. SUBJECTIVE: He is lying in the bed, head at 45 degrees. Night was unremarkable. He just had finished his breakfast. No nausea. No vomiting. Still has some leg swelling on the right. No tenderness. OBJECTIVE: GENERAL: In no acute distress. VITAL SIGNS: Temperature is 98, heart rate is 102, respiratory rate is 18, blood pressure 90/59, and pulse ox 97% on room air. HEENT: Moist mucous membrane. No ulcer or thrush noted. NECK: Supple. No JVD. LUNGS: Have a fair airflow. No rhonchi. HEART: S1 and S2. ABDOMEN: Soft, nontender. No organomegaly. EXTREMITIES: Right leg edema. No tenderness. NEUROLOGIC: Awake and alert. Follows simple commands. LABORATORY DATA: Shows hemoglobin 7.3, hematocrit 23.3, WBC 5.4, and platelets 342. Sodium 134, potassium 3.8, chloride 107, bicarbonate 25, BUN 21, creatinine 0.8, glucose 81, iron is 33, ferritin is 22, AST 20, ALT 32, and alkaline phosphatase is 48. MEDICATIONS: Reviewed. No new changes reported. IMPRESSION AND PLAN: Right leg extensive deep vein thrombosis requiring inferior vena cava filter, bilateral pulmonary embolism, intellectually disabled, vitamin B12 and vitamin D deficiencies, iron deficiency, history of partial gastrectomy, hemicolectomy, recurrent intestinal obstruction, gastrointestinal bleed, high risk for instrumentation, colonoscopy, and esophagogastroduodenoscopy. Gastroenterology is on board. Continue supportive care. Plan is to transfuse him. Yesterday he got IV iron. For now, continue anticoagulation. Follow up hemoglobin and hematocrit closely. Risk-benefit ratio justifies to continue anticoagulation for now. Thank you and we will follow with you. Eber Ziegler MD
== END 2017-12-05 21:01 | disposition short-term general hospital (02) | DRG 299 ==
LOC: TRCU 16:22
PROVIDERS: ADMIT Internal Medicine; ATTEND Internal Medicine
PROC: F08Z4ZZ Home Management Treatment (ICD-10-PCS; 2017-11-28)
PROC: F07Z9ZZ Gait Training/Functional Ambulation Treatment (ICD-10-PCS; principal; 2017-11-29)
PROC: 30233N1 Transfusion of Nonautologous Red Blood Cells into Peripheral Vein, Percutaneous Approach (ICD-10-PCS; 2017-12-05)
DX: I82.421 Acute embolism and thrombosis of right iliac vein (principal); I26.99 Other pulmonary embolism without acute cor pulmonale; Z79.01 Long term (current) use of anticoagulants; L03.115 Cellulitis of right lower limb; E46 Unspecified protein-calorie malnutrition; K31.84 Gastroparesis; F79 Unspecified intellectual disabilities; E53.8 Deficiency of other specified B group vitamins; D50.9 Iron deficiency anemia, unspecified; K21.9 Gastro-esophageal reflux disease without esophagitis; F32.9 Major depressive disorder, single episode, unspecified; E55.9 Vitamin D deficiency, unspecified; Q90.9 Down syndrome, unspecified; Z87.01 Personal history of pneumonia (recurrent); Z90.3 Acquired absence of stomach [part of]

== ENCOUNTER 2017-12-05 20:57 | Inpatient (IN) | payer MEDICARE, MEDICAID ==
[2017-12-06] MEDS: Enoxaparin 60 mg Syringe SC SCH ×2 (02:00→14:50)
[2017-12-06 09:52] LABS: BASO # 0.03 K/mm3 (0.0-2.0); BASO % 0.5 % (0.0-3.0); EOS # 0.3 (0.0-0.7); EOS % 4.9 % (1.5-5.0); GRAN # 3.93 (1.4-6.5); LYMPH # 1.3 (1.2-3.4); LYMPH % 22.2 % (22.0-35.0); MEAN CELL VOLUME 91.3 fl (80.0-105.0); MEAN CORPUSCULAR HEMOGLOBIN 28.7 pg (25.0-35.0); MEAN CORPUSCULAR HGB CONC 31.5 g/dl (31.0-37.0); MEAN PLATELET VOLUME 9.5 fl (7.0-11.0); MONO # 0.4 (0.1-0.6); MONO % 6.4 % (1.0-6.0); RBC 3.55 10^6/uL (3.5-6.1); RED CELL DISTRIBUTION WIDTH 17.6 % (11.5-14.5)
[2017-12-06] MEDS: Cholecalciferol 400 Intl Units Tab PO SCH (09:52)
[2017-12-06] MEDS: Pantoprazole 40 mg EC Tab PO SCH ×2 (09:52→17:19)
[2017-12-06 09:55] LABS: HEMOGLOBIN 10.2 g/dL (14.0-18.0)
[2017-12-06 10:15] LABS: ALB/GLOB RATIO 0.8 (1.1-1.8); ALBUMIN 2.4 g/dL (3.0-4.8); ALT/SGPT 33 U/L (7-56); AST/SGOT 23 U/L (17-59); BLOOD UREA NITROGEN 10 mg/dL (7-21); CALCIUM 8.5 mg/dL (8.4-10.5); GFR AFRICAN-AMERICAN > 60; GFR NON-AFRICAN AMERICAN > 60
--- NOTE | 2017-12-06 17:48 | CP.PCM.CON ---
History of Present Illness - History of Present Illness History of Present Illness: Transferred from TCU for dropping hematocrit. No black stools, no bleeding from any site. he has chronic GI bleed form anastomosis stoma. He has recent DVT right leg and B/L PE. has received several units of PRBC over past few weeks. Review of Systems - Constitutional Constitutional: As Per HPI - EENT Eyes: absent: As Per HPI, Blind Spots, Blurred Vision, Change in Vision, Decreased Night Vision, Diplopia, Discharge, Dry Eye, Exophthalmos, Floaters, Irritation, Itchy Eyes, Loss of Peripheral Vision, Pain, Photophobia, Requires Corrective Lenses, Sees Flashes, Spots in Vision, Tunnel Vision, Other Visual Disturbances, Loss of Vision, Other Nose/Mouth/Throat: absent: As Per HPI, Epistaxis, Nasal Congestion, Nasal Discharge, Nasal Obstruction, Nasal Trauma, Nose Pain, Post Nasal Drip, Sinus Pain, Sinus Pressure, Bleeding Gums, Change in Voice, Dental Pain, Dry Mouth, Dysphagia, Halitosis, Hoarsness, Lip Swelling, Mouth Lesions, Mouth Pain, Odynophagia, Sore Throat, Throat Swelling, Tongue Swelling, Facial Pain, Neck Pain, Neck Mass, Other - Cardiovascular Cardiovascular: absent: As Per HPI, Acrocyanosis, Chest Pain, Chest Pain at Rest , Chest Pain with Activity, Claudication, Diaphoresis, Dyspnea, Dyspnea on Exertion, Edema, Irregular Heart Rhythm, Pain Radiating to Arm/Neck/Jaw, Leg Edema, Leg Ulcers, Lightheadedness, Orthopnea, Palpitations, Paroxysmal Nocturnal Dyspnea, Pedal Edema, Radiating Pain, Rapid Heart Rate, Slow Heart Rate, Syncope, Other - Respiratory Respiratory: absent: As Per HPI, Cough, Dyspnea, Hemoptysis, Dyspnea on Exertion , Wheezing, Snoring, Stridor, Pain on Inspiration, Chest Congestion, Excessive Mucous Production, Change in Mucous Color, Pain with Coughing, Other - Gastrointestinal Gastrointestinal: As Per HPI - Genitourinary Genitourinary: absent: As Per HPI, Change in Urinary Stream, Difficulty Urinating, Dysuria, Flank Pain, Hematuria, Pyuria, Nocturia, Urinary Incontinence, Urinary Frequency, Urinary Hesitance, Urinary Urgency, Voiding Freq/Small Amts, Freq UTI, Hx Renal/Bladder Calculi, Hx /Renal Surgery, Bladder Distension, Other - Musculoskeletal Musculoskeletal: absent: As Per HPI, Abnormal Gait, Arthralgias, Atrophy, Back Pain, Deformity, Joint Swelling, Limited Range of Motion, Loss of Height, Muscle Cramps, Muscle Weakness, Myalgias, Neck Pain, Numbness, Radiating Pain into Limb, Stiffness, Tingling, Other - Integumentary Integumentary: absent: As Per HPI, Acne, Alopecia, Bleeding Lesions, Change in Hair, Change in Nails, Change in Pigmentation, Changing Lesions, Dry Skin, Erythema, Furuncle, Hirsutism, Lesions, New Lesions, Non-Healing Lesions, Photosensitivity, Pruritus, Rash, Skin Pain, Skin Ulcer, Sores, Striae, Swelling , Unusual Bruising, Wounds, Jaundice, Other - Neurological Neurological: absent: As Per HPI, Abnormal Gait, Abnormal Hearing, Abnormal Movements, Abnormal Speech, Behavioral Changes, Burning Sensations, Confusion, Convulsions, Disequilibrium, Dizziness, Numbness, Focal Weakness, Frequent Falls , Headaches, Lack of Coordination, Loss of Vision, Memory Loss, Paresthesias, Radicular Pain, Restless Legs, Sensory Deficit, Syncope, Tingling, Tremor, Vertigo, Weakness, Other Visual Disturbances, Other - Psychiatric Psychiatric: absent: As Per HPI, Abnormal Sleep Pattern, Anhedonia, Anxiety, Auditory Hallucinations, Behavioral Changes, Change in Appetite, Change in Libido, Confusion, Depression, Difficulty Concentrating, Hallucinations, Homicidal Ideation, Hopelessness, Irritability, Memory Loss, Mood Swings, Panic Attacks, Paranoia, Suicidal Ideation, Visual Hallucinations, Tactile Hallucinations, Other - Hematologic/Lymphatic Hematologic: As Per HPI Past Patient History - Infectious Disease Hx of Infectious Diseases: None - Tetanus Immunizations Tetanus Immunization: Unknown - Past Social History Smoking Status: Never Smoked - CARDIAC Hx Cardiac Disorders: Yes - PULMONARY Hx Respiratory Disorders: Yes Other/Comment: aspiration pneumonia - NEUROLOGICAL Other/Comment: As per patients family member mental retardation. - HEENT Hx HEENT Problems: No - RENAL Hx Chronic Kidney Disease: No - ENDOCRINE/METABOLIC Hx Endocrine Disorders: No - HEMATOLOGICAL/ONCOLOGICAL Hx Blood Disorders: Yes Hx Anemia: Yes - INTEGUMENTARY Hx Dermatological Problems: Yes Other/Comment: MULTIPLE SCARRING TO ABDOMINAL AREA FROM MULTIPLE ABDOMINAL SURGERIES - MUSCULOSKELETAL/RHEUMATOLOGICAL Hx Falls: Yes - GASTROINTESTINAL Hx Gastrointestinal Disorders: Yes (gastric outlet obstruction,paralytic ileus, gerd,gi bleed,ileostomy-reversal) - GENITOURINARY/GYNECOLOGICAL Hx Genitourinary Disorders: No - PSYCHIATRIC Hx Emotional Abuse: No Hx Physical Abuse: No - SURGICAL HISTORY Hx Surgeries: Yes Other/Comment: small bowel resection. inguinal hernia repair - ANESTHESIA Hx Anesthesia Reactions: No Hx Malignant Hyperthermia: No Meds Allergies/Adverse Reactions: Allergies Allergy/AdvReac Type Severity Reaction Status Date / Time No Known Allergies Allergy Verified 11/27/17 17:29 - Medications Medications: Current Medications Acetaminophen (Tylenol 325mg Tab) 650 mg PO Q4H PRN PRN Reason: Fever >100.4 F Calcium Carbonate (Oscal) 500 mg PO DAILY [facility] Last Admin: 12/06/17 09:52 Dose: 500 mg Enoxaparin Sodium (Lovenox) 60 mg SC Q12H [facility] PRN Reason: Protocol Last Admin: 12/06/17 14:50 Dose: 60 mg Ergocalciferol (Drisdol 50,000 Intl Units Cap) 1 cap PO Q7D [facility] Folic Acid (Folic Acid) 1 mg PO DAILY [facility] Last Admin: 12/06/17 09:52 Dose: 1 mg Metoclopramide HCl (Reglan) 5 mg PO ACHS [facility] Last Admin: 12/06/17 14:52 Dose: 5 mg Mupirocin (Bactroban Ointment) 0 gm TOP BID [facility] Last Admin: 12/06/17 14:48 Dose: 2 oin Pantoprazole Sodium (Protonix Ec Tab) 40 mg PO BID [facility] Last Admin: 12/06/17 17:19 Dose: 40 mg Vitamin D (Vitamin D 400 Intl Units Tab) 400 intlu PO DAILY [facility] Last Admin: 12/06/17 09:52 Dose: 400 intlu Physical Exam - Constitutional Appears: Well - Head Exam Head Exam: ATRAUMATIC, NORMAL INSPECTION, NORMOCEPHALIC - Eye Exam Eye Exam: absent: Conjunctival injection, EOMI, Normal appearance, Nystagmus, Periorbital swelling, Periorbital tenderness, PERRL, Scleral icterus - Respiratory Exam Respiratory Exam: absent: Accessory Muscle Use, Chest Wall Tenderness, Decreased Breath Sounds, Clear to Auscultation Bilateral, Prolonged Expiratory Phase, Rales, Rhonchi, Wheezes, Respiratory Distress, Stridor, NORMAL BREATHING PATTERN - Cardiovascular Exam Cardiovascular Exam: absent: Bradycardia, Tachycardia, Clicks, Diastolic murmur , Gallop, Irregular Rhythm, REGULAR RHYTHM, JVD, RRR, Rubs, +S1, +S2, +S4, Systolic Murmur - GI/Abdominal Exam GI & Abdominal Exam: absent: Bruit, Diminished Bowel Sounds, Distended, Firm, Guarding, Hernia, Hyperactive Bowel Sounds, Hypoactive Bowel Sounds, Mass, Normal Bowel Sounds, Organomegaly, Pulsatile Mass, Rebound, Rigid, Soft, Tenderness - Extremities Exam Extremities exam: Negative for: calf tenderness, full ROM, joint swelling, normal capillary refill, normal inspection, pedal edema, tenderness, pedal pulses present - Back Exam Back exam: NORMAL INSPECTION - Skin Skin Exam: Pallor Results - Vital Signs Recent Vital Signs: Last Vital Signs Temp 98.3 F 12/06/17 16:00 Pulse 88 12/06/17 16:00 Resp 20 12/06/17 16:00 BP 105/67 12/06/17 16:00 Pulse Ox 95 12/06/17 16:00 - Labs Result Diagrams: 12/06/17 09:40 12/06/17 09:40 Labs: Laboratory Results - last 24 hr 12/06/17 12/06/17 09:40 09:40 WBC 6.0 RBC 3.55 Hgb 10.2 L D Hct 32.4 L MCV 91.3 D MCH 28.7 MCHC 31.5 RDW 17.6 H Plt Count 292 MPV 9.5 Gran % 66.0 Lymph % (Auto) 22.2 Ware % (Auto) 6.4 H Eos % (Auto) 4.9 Baso % (Auto) 0.5 Gran # 3.93 Lymph # (Auto) 1.3 Ware # (Auto) 0.4 Eos # (Auto) 0.3 Baso # (Auto) 0.03 Sodium 136 Potassium 3.6 Chloride 108 H Carbon Dioxide 21 Anion Gap 11 BUN 10 Creatinine 0.7 L Est GFR ( Amer) > 60 Est GFR (Non-Af Amer) > 60 Random Glucose 141 H Calcium 8.5 Total Bilirubin 0.5 AST 23 ALT 33 Alkaline Phosphatase 56 Total Protein 5.5 L Albumin 2.4 L Globulin 3.1 Albumin/Globulin Ratio 0.8 L Assessment & Plan - Assessment and Plan (Free Text) Assessment: 1. B/L PE, DVT right leg. stop eliquis. Lovenox 60 mg BID. Hypercoaguable state. work up sent, results pending. 2. Anemia : likely related to chronic GI bleed. Discussed with Dr. Davies. He will need EGD, sigmoidoscopy r/o bleed. 3. 2 units of PRBC to be transfused. 4. CV : stable. Thank you DR. Rey for allowing us to participate in his care. - Date & Time Date: 12/05/17 Time: 18:00
[2017-12-07] MEDS: Enoxaparin 60 mg Syringe SC SCH ×2 (02:00→14:28)
[2017-12-07 06:24] LABS: HEMOGLOBIN 11.3 g/dL (14.0-18.0); MEAN CELL VOLUME 91.4 fl (80.0-105.0); MEAN CORPUSCULAR HEMOGLOBIN 28.7 pg (25.0-35.0); MEAN CORPUSCULAR HGB CONC 31.4 g/dl (31.0-37.0); MEAN PLATELET VOLUME 9.6 fl (7.0-11.0); RBC 3.94 10^6/uL (3.5-6.1); RED CELL DISTRIBUTION WIDTH 18.8 % (11.5-14.5); WHITE BLOOD COUNT 6.5 10^3/ul (4.5-11.0)
[2017-12-07 07:06] LABS: BLOOD UREA NITROGEN 16 mg/dL (7-21); CALCIUM 8.5 mg/dL (8.4-10.5); GFR AFRICAN-AMERICAN > 60; GFR NON-AFRICAN AMERICAN > 60
--- NOTE | 2017-12-07 07:41 | HP ---
CHIEF COMPLAINT: Anemia, fatigue, tired. HISTORY OF PRESENT ILLNESS: Mr. Sean Dee is a 47-year-old male with multiple medical problems especially PE, DVT, was on heparin, was admitted in the unit with very low hemoglobin, found to have PE and DVT. Transferred to medical floor, started on heparin, transferred to TCU, then patient's hemoglobin dropped. Then brought to medical floor, blood transfusion given. Hemoglobin adjusted and transferred to TCU back. But it was time for patient to discharge home yesterday, we found that hemoglobin is low and patient is on Coumadin. Patient has multiple comorbidities, multiple abdominal surgeries, decubitus ulcer, gastrectomy, bowel resection, multiple times small bowel obstruction. Dr. Davies was on the case, but patient's sister, Iman, refused any GI procedures. Now we will talk to the family, this is critical, we have to know the cause of anemia, or we have to hold blood thinner, but he needs blood thinner because of his PE and DVT; cellulitis of the leg, got antibiotics, got better. Now got blood transfusion. PAST MEDICAL HISTORY: As above. PE, DVT, cellulitis of the right leg, Down syndrome, malnutrition, decubitus ulcer, history of GERD, dyspepsia, gastrectomy, bowel resection. ALLERGIES: PATIENT IS NOT ALLERGIC WITH ANY MEDICATION. FAMILY HISTORY: Not significant. Actually we do not know the family history because patient is an adopted child. SOCIAL HISTORY: Never smoked, no drug, no ethanol. REVIEW OF SYSTEMS: Patient is seen and examined at the bedside in his room, was hungry, eating his lunch, finished all his food. No nausea, vomiting, diarrhea. No hematuria or hematochezia. No headache. No dizziness. No chest pain. No palpitation. PHYSICAL EXAMINATION: VITAL SIGNS: Temperature is 98.3, pulse 74, blood pressure 100/64, respiratory rate 20. HEENT: Head: Normocephalic, atraumatic. Eyes, PERRLA. Extraocular muscles intact. Conjunctivae clear. Nose, patent. Mucous membranes moist. NECK: Supple. No carotid bruit. No JVD or thyromegaly. CHEST: Bilaterally symmetrical. HEART: S1 and S2 positive. LUNGS: Clear to auscultation. ABDOMEN: Soft. Bowel sounds present. No organomegaly. EXTREMITIES: Right leg is red and warm, has dressing. Other than that, the extremities have no edema, no cyanosis. NEUROLOGIC: Patient is awake and alert. Follows simple commands. Patient is mentally challenged. LABORATORY DATA: White blood cells 6.0, hemoglobin 10.2, hematocrit 32.4, platelets 292. Sodium 132, potassium 3.6, BUN 10, creatinine 0.7, glucose 141. ASSESSMENT AND PLAN: Mr. Sean Dee is a 47-year-old male with anemia, hemoglobin 7.2, after multiple blood transfusions, hyperchloremia, hyperglycemia, right leg extensive deep vein thrombosis requiring inferior vena cava filter, bilateral pulmonary embolism, intellectually disabled, vitamin B12, D, and iron deficiency, has partial gastrectomy, hemicolectomy, recurrent intestinal obstruction, history of gastrointestinal bleeding, high risk for instrumentation, but still needs gastrointestinal workup. Gastroenterology is on the case. Continue supportive care. Discussion done with Dr. Murillo multiple times. Discontinue Coumadin. Patient is on Lovenox. We will follow up. Meme Rey MD
[2017-12-07] MEDS: Cholecalciferol 400 Intl Units Tab PO SCH (09:56)
[2017-12-07] MEDS: Pantoprazole 40 mg EC Tab PO SCH ×2 (09:57→17:42)
[2017-12-07] MEDS ORDERED: Peg-Electrolyte Oral Soln 4L (Golytely) PO ONE (12:53)
--- NOTE | 2017-12-07 14:59 | CP.PCM.PN ---
<Cristina Alford - Last Filed: 12/07/17 14:56> Subjective - Date & Time of Evaluation Date of Evaluation: 12/07/17 Time of Evaluation: 11:30 - Subjective Subjective: Chief complaint: anemia 47 yr male w/ history of intellectual disability, GERD, aspiration pneumonia, multiple abdominal surgeries, perforation of stomach, anxiety, recurrent pneumonia, & chronic constipation. R leg DVT treated with eliquis and IVC filter insertion done. L leg cellulitis treated topically. Multiple blood transfusions administered. Anemia improved but still questionable GI bleeding. Iman, his sister, refused any GI procedure to determine location of bleed. Today , seen in his room out of bed to chair. Pt is a poor historian due to his mental disability. Denies any fever, chills, chest pain, shortness of breath, abdominal pain, nausea, vomiting or urinary problems. Objective - Vital Signs/Intake and Output Vital Signs (last 24 hours): Temp Pulse Resp BP Pulse Ox 97.7 F 83 18 99/61 L 95 12/07/17 08:30 12/07/17 08:30 12/07/17 08:30 12/07/17 08:30 12/07/17 08:30 Intake and Output: 12/07/17 12/07/17 06:59 18:59 Intake Total 780 1460 Balance 780 1460 - Medications Medications: Current Medications Acetaminophen (Tylenol 325mg Tab) 650 mg PO Q4H PRN PRN Reason: Fever >100.4 F Calcium Carbonate (Oscal) 500 mg PO DAILY [facility]S [facility] 234 BEDS AT THE [facility] Last Admin: 12/07/17 09:56 Dose: 500 mg Enoxaparin Sodium (Lovenox) 60 mg SC Q12H COUNTS INCLUDE 234 BEDS AT THE [facility] PRN Reason: Protocol Last Admin: 12/07/17 14:28 Dose: Not Given Ergocalciferol (Drisdol 50,000 Intl Units Cap) 1 cap PO Q7D COUNTS INCLUDE 234 BEDS AT THE [facility] Folic Acid (Folic Acid) 1 mg PO DAILY COUNTS INCLUDE 234 BEDS AT THE [facility] Last Admin: 12/07/17 09:56 Dose: 1 mg Metoclopramide HCl (Reglan) 5 mg PO ACHS COUNTS INCLUDE 234 BEDS AT THE [facility] Last Admin: 12/07/17 11:46 Dose: 5 mg Mupirocin (Bactroban Ointment) 0 gm TOP BID COUNTS INCLUDE 234 BEDS AT THE [facility] Last Admin: 12/07/17 09:57 Dose: 1 applic Pantoprazole Sodium (Protonix Ec Tab) 40 mg PO BID COUNTS INCLUDE 234 BEDS AT THE [facility] Last Admin: 12/07/17 09:57 Dose: 40 mg Vitamin D (Vitamin D 400 Intl Units Tab) 400 intlu PO DAILY [facility]S INCLUDE 234 BEDS AT THE [facility] Last Admin: 12/07/17 09:56 Dose: 400 intlu - Labs Labs: 12/07/17 05:30 12/07/17 05:30 - Constitutional Appears: Chronically Ill - Head Exam Head Exam: ATRAUMATIC, NORMAL INSPECTION, NORMOCEPHALIC - Eye Exam Eye Exam: EOMI, Normal appearance, PERRL Pupil Exam: NORMAL ACCOMODATION, PERRL - ENT Exam ENT Exam: Mucous Membranes Moist, Normal Exam - Neck Exam Neck Exam: Full ROM, Normal Inspection. absent: Lymphadenopathy - Respiratory Exam Respiratory Exam: Clear to Ausculation Bilateral, NORMAL BREATHING PATTERN - Cardiovascular Exam Cardiovascular Exam: REGULAR RHYTHM, +S1, +S2. absent: Murmur - GI/Abdominal Exam GI & Abdominal Exam: Soft, Normal Bowel Sounds. absent: Tenderness - Extremities Exam Additional comments: R leg erythema, mariah bandage applied, dressing C/D/I - Back Exam Back Exam: NORMAL INSPECTION - Neurological Exam Neurological Exam: Alert, Awake, Oriented x3 - Psychiatric Exam Psychiatric exam: Normal Affect, Normal Mood - Skin Skin Exam: Dry, Pallor Assessment and Plan (3) Severe anemia Status: Acute (4) GI bleed Status: Acute (5) Colonic obstruction Status: Chronic (6) Abdominal pain of unknown etiology Status: Acute (7) Actinic keratosis of right cheek Status: Acute (8) Anemia Status: Acute (9) Cellulitis Status: Acute (10) Pulmonary embolism Status: Acute (11) Small bowel obstruction Status: Acute (12) DVT (deep venous thrombosis) Status: Chronic (13) Mentally disabled Status: Chronic - Assessment and Plan (Free Text) Plan: Labs ordered. Bacitracin BID to R leg. Continue PT & OT. Tolerating diet. JEFFERSON stockings ordered. Eliquis on board, held for possible Endoscopy/Colonoscopy. On lovenox for now. Pain management: tylenol prn Consults: Pulmonary - Dr. Ziegler ID - Dr. Del Rosario IR - Dr. Chloe Easley GI - Dr. Davies Surgery - Dr. Brown Henson Hemo/Onc - Dr. Murillo Podiatry - Dr. Wilson Wound Care - Reviewed: CXR = WNL R lower ext US = R extensive iliofemoral DVT ECG = NSR CTA chest/abd/pelvis = distal colonic obstruction w/ severe dilation of the proximal colon. the transition point is seen in rectosigmoid. very small bilateral pulmonary emboli CT chest = VQ scan = low probability for pulmonary emboli <Meme Rey - Last Filed: 12/15/17 17:25> Objective - Vital Signs/Intake and Output Vital Signs (last 24 hours): Temp Pulse Resp BP Pulse Ox 98.3 F 68 20 99/55 L 100 12/14/17 09:16 12/14/17 09:16 12/14/17 09:16 12/14/17 09:16 12/14/17 09:16 - Labs Labs: 12/14/17 05:45 12/14/17 05:45 PT 14.8 SECONDS (9.4-12.5) H 12/14/17 05:45 INR 1.28 (0.93-1.08) H 12/14/17 05:45 APTT 39.9 Seconds (25.1-36.5) H 12/10/17 07:40 Assessment and Plan - Assessment and Plan (Free Text) Plan: 47 yr male w/ history of intellectual disability, GERD, aspiration pneumonia, multiple abdominal surgeries, perforation of stomach, anxiety, recurrent pneumonia, & chronic constipation. R leg DVT treated with eliquis and IVC filter insertion done. L leg cellulitis treated topically. Multiple blood transfusions administered. Anemia improved but still questionable GI bleeding. Iman, his sister, refused any GI procedure to determine location of bleed. Today , seen in his room out of bed to chair. Pt is a poor historian due to his mental disability. Denies any fever, chills, chest pain, shortness of breath, abdominal pain, nausea, vomiting or urinary problems.pt is seen and examined at bed side , looking comfortable , chart , meds and labs noted , will f.u agreed all above
[2017-12-08] MEDS: Enoxaparin 60 mg Syringe SC SCH ×2 (01:00→13:48)
[2017-12-08 07:50] LABS: BLOOD UREA NITROGEN 12 mg/dL (7-21); CALCIUM 8.3 mg/dL (8.4-10.5); GFR AFRICAN-AMERICAN > 60; GFR NON-AFRICAN AMERICAN > 60
[2017-12-08] MEDS: Cholecalciferol 400 Intl Units Tab PO SCH (11:34)
[2017-12-08] MEDS: Pantoprazole 40 mg EC Tab PO SCH ×2 (11:34→18:09)
[2017-12-08] MEDS ORDERED: Lactated Ringer's 1,000 ML IV SCH (18:00)
[2017-12-09 06:36] LABS: HEMOGLOBIN 9.4 g/dL (14.0-18.0); MEAN CELL VOLUME 93.2 fl (80.0-105.0); MEAN CORPUSCULAR HEMOGLOBIN 29.1 pg (25.0-35.0); MEAN CORPUSCULAR HGB CONC 31.2 g/dl (31.0-37.0); MEAN PLATELET VOLUME 9.6 fl (7.0-11.0); RBC 3.23 10^6/uL (3.5-6.1); RED CELL DISTRIBUTION WIDTH 19.7 % (11.5-14.5); WHITE BLOOD COUNT 4.6 10^3/ul (4.5-11.0)
[2017-12-09 07:11] LABS: ALB/GLOB RATIO 0.7 (1.1-1.8); ALBUMIN 2.1 g/dL (3.0-4.8); ALT/SGPT 33 U/L (7-56); AST/SGOT 24 U/L (17-59); BLOOD UREA NITROGEN 9 mg/dL (7-21); CALCIUM 8.3 mg/dL (8.4-10.5); GFR AFRICAN-AMERICAN > 60; GFR NON-AFRICAN AMERICAN > 60
--- NOTE | 2017-12-09 08:49 | PN ---
DATE: 12/08/2017 SUBJECTIVE: The patient examined at the bedside, looking comfortable. No nausea, vomiting or diarrhea. No hematuria or hematochezia. No swelling of the legs. No chest pain, no palpitation, no headache, no dizziness. Patient is mentally challenged, is going for endoscopy and colonoscopy. PHYSICAL EXAMINATION: VITAL SIGNS: Temperature 98.6, pulse 89, blood pressure 98/50, and respiratory rate 19. HEENT: Head: Normocephalic, atraumatic. Eyes: PERRLA. Extraocular muscles intact. Conjunctivae clear. Nose patent. Mucous membranes moist. NECK: Supple. No carotid bruit or thyromegaly. CHEST: Bilaterally symmetrical. HEART: S1 and S2 positive. LUNGS: Clear to auscultation. ABDOMEN: Soft. Bowel sounds present. No organomegaly. EXTREMITIES: No edema. No cyanosis. NEUROLOGICAL: The patient is awake and alert. Moving all 4 extremities. No focal deficits. MEDICATIONS: Bactroban, vitamin D, folic acid, Lovenox, pantoprazole, Tylenol, and Protonix. LABORATORY DATA: White blood cells 6.5, hemoglobin 11.3, hematocrit 36.0, and platelets 311. Sodium 138, potassium 3.9, BUN 12, creatinine 0.7, and glucose 76. ASSESSMENT AND PLAN: Mr. Angelita Estrada is a 47-year-old male, mentally challenged; gastroesophageal reflux disease; dyspepsia; history of aspiration pneumonia; multiple abdominal surgeries; perforation of the stomach; anxiety; history of chronic constipation; right leg extensive deep vein thrombosis, treated with Eliquis and has double inferior vena cava filter insertion; patient has constantly dropping hemoglobin , got multiple packed red blood cells. Today went for colonoscopy and endoscopy, maybe patient have some bleeding source in gastrointestinal; leg cellulitis topically and IV antibiotics, getting better. There was time family refused gastrointestinal procedure, but finally ,she , sister agreed for that; actinic keratosis of the right cheek status post biopsy. ID is on the case; history of chronic obstruction, we will continue present treatment. Gastrointestinal and deep vein thrombosis prophylaxis. Repeat labs. We will follow up. Meme Rey MD [facility] # [id number] MTDD
[2017-12-09 10:27] LABS: INR 1.09 (0.93-1.08); PARTIAL THROMBOPLASTIN TIME 28.9 Seconds (25.1-36.5); PROTHROMBIN TIME 12.6 SECONDS (9.4-12.5)
[2017-12-09] MEDS: Pantoprazole 40 mg EC Tab PO SCH ×2 (10:50→18:16)
[2017-12-09] MEDS: Cholecalciferol 400 Intl Units Tab PO SCH (10:50)
--- NOTE | 2017-12-09 12:51 | CP.PCM.PN ---
<Cristina Alford - Last Filed: 12/09/17 12:48> Subjective - Date & Time of Evaluation Date of Evaluation: 12/09/17 Time of Evaluation: 11:30 - Subjective Subjective: Chief complaint: anemia, GI bleed 47 yr male w/ history of intellectual disability, GERD, aspiration pneumonia, multiple abdominal surgeries, perforation of stomach, anxiety, recurrent pneumonia, & chronic constipation. R leg DVT treated with eliquis and IVC filter insertion. L leg cellulitis treated topically. Multiple blood transfusions administered. Anemia persists; on 12/09 (Hgb=9.4). NPO for sigmoidoscopy. Today, seen in his room resting comfortably in bed. Pt is a poor historian due to his mental disability. Denies any fever, chills, chest pain, shortness of breath, abdominal pain, nausea, vomiting or urinary problems. Objective - Vital Signs/Intake and Output Vital Signs (last 24 hours): Temp Pulse Resp BP Pulse Ox 98.7 F 50 L 16 90/56 L 97 12/08/17 17:46 12/08/17 17:46 12/08/17 17:46 12/08/17 17:46 12/08/17 17:46 Intake and Output: 12/09/17 12/09/17 06:59 18:59 Intake Total 860 Balance 860 - Medications Medications: Current Medications Acetaminophen (Tylenol 325mg Tab) 650 mg PO Q4H PRN PRN Reason: Fever >100.4 F Calcium Carbonate (Oscal) 500 mg PO DAILY [facility] Last Admin: 12/09/17 10:50 Dose: Not Given Enoxaparin Sodium (Lovenox) 60 mg SC Q12H [facility] PRN Reason: Protocol Last Admin: 12/08/17 13:48 Dose: Not Given Ergocalciferol (Drisdol 50,000 Intl Units Cap) 1 cap PO Q7D [facility] Folic Acid (Folic Acid) 1 mg PO DAILY [facility] Last Admin: 12/09/17 10:50 Dose: Not Given Metoclopramide HCl (Reglan) 5 mg PO ACHS [facility] Last Admin: 12/09/17 12:15 Dose: Not Given Mupirocin (Bactroban Ointment) 0 gm TOP BID [facility] Last Admin: 12/07/17 18:22 Dose: 1 applic Pantoprazole Sodium (Protonix Ec Tab) 40 mg PO BID [facility] Last Admin: 12/09/17 10:50 Dose: Not Given Vitamin D (Vitamin D 400 Intl Units Tab) 400 intlu PO DAILY [facility] Last Admin: 12/09/17 10:50 Dose: Not Given - Labs Labs: 12/09/17 05:45 12/09/17 05:45 PT 12.6 SECONDS (9.4-12.5) H 12/09/17 10:10 INR 1.09 (0.93-1.08) H 12/09/17 10:10 APTT 28.9 Seconds (25.1-36.5) 12/09/17 10:10 - Constitutional Appears: No Acute Distress, Chronically Ill - Head Exam Head Exam: ATRAUMATIC, NORMAL INSPECTION, NORMOCEPHALIC - Eye Exam Eye Exam: EOMI, Normal appearance, PERRL Pupil Exam: NORMAL ACCOMODATION, PERRL - ENT Exam ENT Exam: Mucous Membranes Moist, Normal Exam - Neck Exam Neck Exam: Full ROM, Normal Inspection. absent: Lymphadenopathy - Respiratory Exam Respiratory Exam: Clear to Ausculation Bilateral, NORMAL BREATHING PATTERN - Cardiovascular Exam Cardiovascular Exam: REGULAR RHYTHM, +S1, +S2. absent: Murmur - GI/Abdominal Exam GI & Abdominal Exam: Soft, Normal Bowel Sounds. absent: Tenderness - Extremities Exam Additional comments: R leg mariah bandage applied, dressing C/D/I - Back Exam Back Exam: NORMAL INSPECTION - Neurological Exam Neurological Exam: Alert, Awake - Psychiatric Exam Psychiatric exam: Normal Affect, Normal Mood - Skin Skin Exam: Normal Color, Warm Assessment and Plan (1) Severe anemia Status: Acute (2) GI bleed Status: Acute (3) Colonic obstruction Status: Chronic (4) Abdominal pain of unknown etiology Status: Acute (5) Actinic keratosis of right cheek Status: Acute (6) Anemia Status: Acute (7) Cellulitis Status: Acute (8) Pulmonary embolism Status: Acute (9) Small bowel obstruction Status: Acute (10) DVT (deep venous thrombosis) Status: Chronic (11) Mentally disabled Status: Chronic - Assessment and Plan (Free Text) Plan: NPO for for Endoscopy/Sigmoidoscopy. Labs ordered. Bacitracin BID to R leg. Continue PT & OT. Tolerating diet. JEFFERSON stockings ordered. Eliquis held, on lovenox for now. Pain management: tylenol prn Consults: Pulmonary - Dr. Ziegler ID - Dr. Del Rosario IR - Dr. Chloe Easley GI - Dr. Davies Surgery - Dr. Brown Henson Hemo/Onc - Dr. Murillo Podiatry - Dr. Wilson Wound Care - Reviewed: CXR = WNL R lower ext US = R extensive iliofemoral DVT ECG = NSR CTA chest/abd/pelvis = distal colonic obstruction w/ severe dilation of the proximal colon. the transition point is seen in rectosigmoid. very small bilateral pulmonary emboli VQ scan = low probability for pulmonary emboli <Meme Rey - Last Filed: 12/10/17 10:03> Objective - Vital Signs/Intake and Output Vital Signs (last 24 hours): Temp Pulse Resp BP Pulse Ox 98.2 F 80 20 114/66 98 12/10/17 08:41 12/10/17 08:41 12/10/17 08:41 12/10/17 08:41 12/10/17 08:41 Intake and Output: 12/10/17 12/10/17 06:59 18:59 Intake Total 920 Balance 920 - Medications Medications: Current Medications Acetaminophen (Tylenol 325mg Tab) 650 mg PO Q4H PRN PRN Reason: Fever >100.4 F Calcium Carbonate (Oscal) 500 mg PO DAILY [facility] Last Admin: 12/10/17 09:41 Dose: Not Given Dabigatran (Pradaxa) 150 mg PO BID [facility] PRN Reason: Protocol Last Admin: 12/10/17 09:41 Dose: Not Given Ergocalciferol (Drisdol 50,000 Intl Units Cap) 1 cap PO Q7D [facility] Folic Acid (Folic Acid) 1 mg PO DAILY [facility] Last Admin: 12/10/17 09:41 Dose: Not Given Metoclopramide HCl (Reglan) 5 mg PO ACHS [facility] Last Admin: 12/10/17 08:03 Dose: Not Given Mupirocin (Bactroban Ointment) 0 gm TOP BID [facility] Last Admin: 12/07/17 18:22 Dose: 1 applic Pantoprazole Sodium (Protonix Ec Tab) 40 mg PO BID [facility] Last Admin: 12/10/17 09:41 Dose: Not Given Vitamin D (Vitamin D 400 Intl Units Tab) 400 intlu PO DAILY [facility] Last Admin: 12/10/17 09:41 Dose: Not Given - Labs Labs: 12/10/17 05:30 12/10/17 05:30 PT 11.7 SECONDS (9.4-12.5) 12/10/17 07:40 INR 1.02 (0.93-1.08) 12/10/17 07:40 APTT 39.9 Seconds (25.1-36.5) H 12/10/17 07:40 Assessment and Plan - Assessment and Plan (Free Text) Plan: 47 yr male w/ history of intellectual disability, GERD, aspiration pneumonia, multiple abdominal surgeries, perforation of stomach, anxiety, recurrent pneumonia, & chronic constipation. R leg DVT treated with eliquis and IVC filter insertion. L leg cellulitis treated topically. Multiple blood transfusions administered. Anemia persists; on 12/09 (Hgb=9.4). NPO for sigmoidoscopy. Today, seen in his room resting comfortably in bed. Pt is a poor historian due to his mental disability. Denies any fever, chills, chest pain, shortness of breath, abdominal pain, nausea, vomiting or urinary problems.pt is seen and examined at bed side , looking comfortable . agreed all above . chart . meds and labs noted , will f/u
--- NOTE | 2017-12-09 21:08 | CP.PCM.PN ---
Subjective - Date & Time of Evaluation Date of Evaluation: 12/08/17 Time of Evaluation: 17:00 - Subjective Subjective: Comfortable in bed. Hb/Hct dropped again today. No bleeding from any site. No complaints of shortness of breath. EGD, colonoscopy planned for tomorrow. Objective - Vital Signs/Intake and Output Vital Signs (last 24 hours): Temp Pulse Resp BP Pulse Ox 98.0 F 69 20 93/56 L 98 12/09/17 07:00 12/09/17 07:00 12/09/17 07:00 12/09/17 07:00 12/09/17 07:00 Intake and Output: 12/09/17 12/10/17 18:59 06:59 Intake Total 480 Balance 480 - Medications Medications: Current Medications Acetaminophen (Tylenol 325mg Tab) 650 mg PO Q4H PRN PRN Reason: Fever >100.4 F Calcium Carbonate (Oscal) 500 mg PO DAILY [facility] Last Admin: 12/09/17 10:50 Dose: Not Given Dabigatran (Pradaxa) 150 mg PO BID [facility] PRN Reason: Protocol Ergocalciferol (Drisdol 50,000 Intl Units Cap) 1 cap PO Q7D [facility] Folic Acid (Folic Acid) 1 mg PO DAILY [facility] Last Admin: 12/09/17 10:50 Dose: Not Given Metoclopramide HCl (Reglan) 5 mg PO ACHS [facility] Last Admin: 12/09/17 18:16 Dose: 5 mg Mupirocin (Bactroban Ointment) 0 gm TOP BID [facility] Last Admin: 12/07/17 18:22 Dose: 1 applic Pantoprazole Sodium (Protonix Ec Tab) 40 mg PO BID [facility] Last Admin: 12/09/17 18:16 Dose: 40 mg Vitamin D (Vitamin D 400 Intl Units Tab) 400 intlu PO DAILY [facility] Last Admin: 12/09/17 10:50 Dose: Not Given - Labs Labs: 12/09/17 05:45 12/09/17 05:45 PT 12.6 SECONDS (9.4-12.5) H 12/09/17 10:10 INR 1.09 (0.93-1.08) H 12/09/17 10:10 APTT 28.9 Seconds (25.1-36.5) 12/09/17 10:10 - Constitutional Appears: Well, Non-toxic, Chronically Ill - Head Exam Head Exam: ATRAUMATIC, NORMAL INSPECTION, NORMOCEPHALIC - Eye Exam Eye Exam: Normal appearance Pupil Exam: NORMAL ACCOMODATION - ENT Exam ENT Exam: Mucous Membranes Moist - Neck Exam Neck Exam: Normal Inspection - Respiratory Exam Respiratory Exam: Clear to Ausculation Bilateral, NORMAL BREATHING PATTERN - Cardiovascular Exam Cardiovascular Exam: REGULAR RHYTHM, +S1, +S2 - GI/Abdominal Exam GI & Abdominal Exam: Soft, Normal Bowel Sounds - Extremities Exam Extremities Exam: Normal Capillary Refill, Normal Inspection - Back Exam Back Exam: NORMAL INSPECTION - Neurological Exam Neurological Exam: Alert, Awake, Normal Gait, Oriented x3 - Psychiatric Exam Psychiatric exam: Flat Affect - Skin Skin Exam: Pallor, Warm Assessment and Plan - Assessment and Plan (Free Text) Assessment: 1. Severe anemia : iron deficiency. History of bleeding from surgical anastomosis from previous surgeries. GI work up planned for evaluation/treatment of bleed. 2. Recent right femoral DVT, B/L PE. on anticoagulation with lovenox. anticoagulation is challenging due to ongoing GI bleed. s/p several units of PRBCs. If he continue to drop hematocrit, anticoagualtion will be discontinued. he should get at least 6 month of anticoagulation. s/p IVC filter. 3. Oral anticoagulation pradaxa to be started. It has an antidote and does not require monitoring like coumadin. Thank you Dr. Rey for allowing us to participate in his care.
[2017-12-10 06:50] LABS: MEAN CELL VOLUME 94.8 fl (80.0-105.0); MEAN CORPUSCULAR HEMOGLOBIN 29.2 pg (25.0-35.0); MEAN CORPUSCULAR HGB CONC 30.8 g/dl (31.0-37.0); RBC 4.21 10^6/uL (3.5-6.1); RED CELL DISTRIBUTION WIDTH 19.8 % (11.5-14.5); WHITE BLOOD COUNT 4.8 10^3/ul (4.5-11.0)
[2017-12-10 06:55] LABS: HEMOGLOBIN 12.3 g/dL (14.0-18.0)
[2017-12-10 07:09] LABS: ALB/GLOB RATIO 0.8 (1.1-1.8); ALT/SGPT 24 U/L (7-56); AST/SGOT 34 U/L (17-59); BLOOD UREA NITROGEN 8 mg/dL (7-21); CALCIUM 8.9 mg/dL (8.4-10.5); GFR AFRICAN-AMERICAN > 60; GFR NON-AFRICAN AMERICAN > 60
[2017-12-10 08:21] LABS: INR 1.02 (0.93-1.08); PARTIAL THROMBOPLASTIN TIME 39.9 Seconds (25.1-36.5); PROTHROMBIN TIME 11.7 SECONDS (9.4-12.5)
[2017-12-10] MEDS: Cholecalciferol 400 Intl Units Tab PO SCH (09:41)
[2017-12-10] MEDS: Pantoprazole 40 mg EC Tab PO SCH ×2 (09:41→18:02)
[2017-12-10] MEDS ORDERED: Propofol 10 mg/ml Inj (20 ML) ONE (10:45)
[2017-12-10] MEDS ORDERED: Phenylephrine 10 mg/ml Inj ONE (10:52)
[2017-12-11] MEDS ORDERED: Ergocalciferol 50,000 Intl Units Cap PO SCH (03:15)
--- NOTE | 2017-12-11 04:17 | PN ---
DATE: SUBJECTIVE: Patient was seen and examined at the bedside, earlier of the day, looking comfortable, went for procedure. Day time, he was okay, gave him liquid diet. Length of time discussion done with the patient's family, Arnold, sister and Yari Tang of the nephrology social worker about patient's discharge planning. Finally, it was decided patient will go home at 10:00. Now nurse called me, right now patient has temperature of 100 plus and I held the discharge. We will do septic workup. Consult called with ID and I informed Yari also. Right now, no hematuria, no hematochezia. No headache or dizziness. No chest pain. No palpitations. PHYSICAL EXAMINATION: VITAL SIGNS: Temperature 98.2, pulse 65, blood pressure 83/67, respiratory rate 18. HEENT: Head: Normocephalic and atraumatic. Eyes: PERRLA. Extraocular muscles intact. Conjunctivae clear. Nose: Patent. Mucous membranes are moist. NECK: Supple. No carotid bruit. No JVD or thyromegaly. CHEST: Bilaterally symmetrical. HEART: S1, S2 positive. LUNGS: Clear to auscultation. ABDOMEN: Soft. Bowel sounds present. No organomegaly. EXTREMITIES: No edema. No cyanosis. NEUROLOGIC: Patient is awake and alert. Moving all four extremities. No focal deficits. MEDICATIONS: Bactroban, Dilaudid, folic acid, calcium carbonate, Pradaxa, Protonix, Reglan, NS, Tylenol, vitamin D. LABORATORY DATA: White blood cell is 4.8, hemoglobin 12.3, hematocrit 39.9, platelets 229. Sodium 138, potassium 4.2, BUN 8, creatinine 0.8. ASSESSMENT AND PLAN: Mr. Sean Dee is a 47-year-old male with anemia, hyperchloremia, history of hyperglycemia, went for endoscopy today by Dr. Davies, also esophagogastroduodenoscopy and sigmoidoscopy. Postoperative diagnosis status post gastrectomy, no source of bleeding, stricture, inflammation at the anastomosis. Discussion done with Dr. Murillo. Patient has bleeding somewhere. Hemoglobin is dropping. We are transfusing packed red blood cells. Patient has history of deep venous thrombosis and pulmonary embolism, should be on blood thinner, but in the presence of bleeding, it is questionable giving blood thinner. Patient has iron deficiency. Bleeding from the surgical anastomosis from the previous surgeries. 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 several units of packed red blood cell transfusion. If continued drop of hematocrit/hemoglobin, anticoagulation will be discontinued. He should get at least 6 months of anticoagulation, status post IVC filter as per Hematology. Oral anticoagulation, Pradaxa started. It is an antidote and does not require monitoring like Coumadin because patient is noncompliant and mentally challenged; with Coumadin, followup will be disaster. Today, it was time for patient to get discharged, but has started fever. We will watch overnight, observe, and we called Infectious Disease integrity consultant. Meme Rey MD MTDD
[2017-12-11] MEDS: Sodium Chloride 0.9% 1,000 ML IV SCH ×2 (06:43)
[2017-12-11 07:10] LABS: HEMOGLOBIN 8.9 g/dL (14.0-18.0); MEAN CELL VOLUME 94.4 fl (80.0-105.0); MEAN CORPUSCULAR HEMOGLOBIN 29.4 pg (25.0-35.0); MEAN CORPUSCULAR HGB CONC 31.1 g/dl (31.0-37.0); MEAN PLATELET VOLUME 9.7 fl (7.0-11.0); RBC 3.03 10^6/uL (3.5-6.1); RED CELL DISTRIBUTION WIDTH 19.4 % (11.5-14.5); WHITE BLOOD COUNT 3.8 10^3/ul (4.5-11.0)
[2017-12-11 07:35] LABS: BLOOD UREA NITROGEN 10 mg/dL (7-21); CALCIUM 8.1 mg/dL (8.4-10.5); GFR AFRICAN-AMERICAN > 60; GFR NON-AFRICAN AMERICAN > 60
--- NOTE | 2017-12-11 08:50 | RAD ---
HISTORY: Evaluate for pneumonia COMPARISON: No prior. FINDINGS: LUNGS: The lungs are well inflated. The right lung is clear. There is airspace disease in the left lower lobe. PLEURA: No significant pleural effusion identified, no pneumothorax apparent. CARDIOVASCULAR: Normal. OSSEOUS STRUCTURES: No significant abnormalities. VISUALIZED UPPER ABDOMEN: Normal. OTHER FINDINGS: None. IMPRESSION: Suspect left lower lobe pneumonia. Follow-up PA and lateral views are recommended for definitive evaluation.
[2017-12-11] MEDS: Pantoprazole 40 mg EC Tab PO SCH ×2 (09:50→17:18)
[2017-12-11] MEDS: Cholecalciferol 400 Intl Units Tab PO SCH (09:50)
[2017-12-11 10:48] LABS: INR 1.18 (0.93-1.08); PROTHROMBIN TIME 13.6 SECONDS (9.4-12.5)
[2017-12-11] MEDS: Cefepime IV 2 gm in NS 2 GM/100 ML BAG IVPB SCH ×3 (11:39→22:17)
[2017-12-11] MEDS: Vancomycin 1gm in NS 250ml 1 GM/250 ML BAG IVPB SCH ×2 (12:52→21:52)
--- NOTE | 2017-12-11 14:05 | CP.PCM.PN ---
<Cristina Alford - Last Filed: 12/11/17 14:02> Subjective - Date & Time of Evaluation Date of Evaluation: 12/11/17 Time of Evaluation: 09:30 - Subjective Subjective: Chief complaint: tachycardia, fever 47 yr male w/ history of intellectual disability, GERD, aspiration pneumonia, multiple abdominal surgeries, perforation of stomach, anxiety, recurrent pneumonia, & chronic constipation. R leg DVT treated with eliquis and IVC filter insertion. L leg cellulitis treated topically. Multiple blood transfusions administered. Anemia persists; on 12/11 (Hgb=8.9). s/p sigmoidoscopy patient spiked a temp, tested positive for influenza A, and CXR shows possible pneumonia. Today, seen in his room resting comfortably in bed. Pt is a poor historian due to his mental disability. Denies any fever, chills, chest pain, shortness of breath, abdominal pain, nausea, vomiting or urinary problems. Objective - Vital Signs/Intake and Output Vital Signs (last 24 hours): Temp Pulse Resp BP Pulse Ox 99 F 78 20 119/68 96 12/11/17 11:46 12/11/17 08:51 12/11/17 08:51 12/11/17 08:51 12/11/17 08:51 Intake and Output: 12/11/17 12/11/17 06:59 18:59 Intake Total 120 Balance 120 - Medications Medications: Current Medications Acetaminophen (Tylenol 325mg Tab) 650 mg PO Q4H PRN PRN Reason: Fever >100.4 F Last Admin: 12/10/17 22:52 Dose: 650 mg Calcium Carbonate (Oscal) 500 mg PO DAILY [facility] Last Admin: 12/11/17 09:50 Dose: 500 mg Ergocalciferol (Drisdol 50,000 Intl Units Cap) 1 cap PO Q7D [facility] Last Admin: 12/11/17 03:33 Dose: 1 cap Folic Acid (Folic Acid) 1 mg PO DAILY [facility] Last Admin: 12/11/17 09:50 Dose: 1 mg Cefepime HCl (Maxipime 2gm) 2 gm in 100 mls @ 100 mls/hr IVPB Q8 [facility] PRN Reason: Protocol Stop: 12/16/17 09:46 Last Admin: 12/11/17 13:05 Dose: Not Given Vancomycin HCl (Vancomycin 1gm) 1 gm in 250 mls @ 167 mls/hr IVPB Q12H [facility] PRN Reason: Protocol Last Admin: 12/11/17 12:52 Dose: 167 mls/hr Metoclopramide HCl (Reglan) 5 mg PO ACHS [facility] Last Admin: 12/11/17 12:51 Dose: 5 mg Mupirocin (Bactroban Ointment) 0 gm TOP BID [facility] Last Admin: 12/11/17 11:38 Dose: 1 applic Oseltamivir Phosphate (Tamiflu Cap) 75 mg PO BID [facility] PRN Reason: Protocol Stop: 12/16/17 11:27 Pantoprazole Sodium (Protonix Ec Tab) 40 mg PO BID [facility] Last Admin: 12/11/17 09:50 Dose: 40 mg Vitamin D (Vitamin D 400 Intl Units Tab) 400 intlu PO DAILY [facility] Last Admin: 12/11/17 09:50 Dose: 400 intlu Warfarin Sodium (Coumadin) 2 mg PO 1800 [facility] PRN Reason: Protocol - Labs Labs: 12/11/17 06:00 12/11/17 06:00 PT 13.6 SECONDS (9.4-12.5) H 12/11/17 10:00 INR 1.18 (0.93-1.08) H 12/11/17 10:00 APTT 39.9 Seconds (25.1-36.5) H 12/10/17 07:40 - Constitutional Appears: Chronically Ill - Head Exam Head Exam: ATRAUMATIC, NORMAL INSPECTION, NORMOCEPHALIC - Eye Exam Eye Exam: EOMI, Normal appearance, PERRL Pupil Exam: NORMAL ACCOMODATION, PERRL - ENT Exam ENT Exam: Mucous Membranes Moist, Normal Exam - Neck Exam Neck Exam: Full ROM, Normal Inspection. absent: Lymphadenopathy - Respiratory Exam Respiratory Exam: Clear to Ausculation Bilateral, NORMAL BREATHING PATTERN - Cardiovascular Exam Cardiovascular Exam: Tachycardia, +S1, +S2. absent: Murmur - GI/Abdominal Exam GI & Abdominal Exam: Soft, Normal Bowel Sounds. absent: Tenderness - Extremities Exam Extremities Exam: absent: Joint Swelling, Pedal Edema Additional comments: R leg mariah bandage applied, dressing C/D/I - Back Exam Back Exam: NORMAL INSPECTION - Neurological Exam Neurological Exam: Alert, Awake - Psychiatric Exam Psychiatric exam: Normal Affect, Normal Mood - Skin Skin Exam: Dry, Intact, Pallor, Warm Assessment and Plan (1) Influenza Status: Acute (2) Pneumonia Status: Acute (3) Severe anemia Status: Acute (4) GI bleed Status: Acute (5) Colonic obstruction Status: Chronic (6) Abdominal pain of unknown etiology Status: Acute (7) Actinic keratosis of right cheek Status: Acute (8) Anemia Status: Acute (9) Cellulitis Status: Acute (10) Pulmonary embolism Status: Acute (11) Small bowel obstruction Status: Acute (12) DVT (deep venous thrombosis) Status: Chronic (13) Mentally disabled Status: Chronic - Assessment and Plan (Free Text) Plan: Positive for influenza A, on tamiflu. IV vancomycin & cefepime. Biposy taken in Endoscopy/Sigmoidoscopy awaiting results. Labs ordered. Bacitracin BID to R leg. Continue PT & OT. Tolerating diet. JEFFERSON stockings ordered. Warfarin on board (previously on eliquis). Pain management: tylenol prn Consults: Pulmonary - Dr. Ziegler ID - Dr. Del Rosario IR - Dr. Chloe Easley GI - Dr. Davies Surgery - Dr. Brown Henson Hemo/Onc - Dr. Murillo Podiatry - Dr. Wilson Wound Care - Reviewed: CXR = 12/11/17 - suspected L lower lobe pneumonia CXR = WNL R lower ext US = R extensive iliofemoral DVT ECG = NSR CTA chest/abd/pelvis = distal colonic obstruction w/ severe dilation of the proximal colon. the transition point is seen in rectosigmoid. very small bilateral pulmonary emboli VQ scan = low probability for pulmonary emboli <Meme Rey - Last Filed: 12/11/17 16:50> Objective - Vital Signs/Intake and Output Vital Signs (last 24 hours): Temp Pulse Resp BP Pulse Ox 99 F 78 20 119/68 96 12/11/17 11:46 12/11/17 08:51 12/11/17 08:51 12/11/17 08:51 12/11/17 08:51 Intake and Output: 12/11/17 12/11/17 06:59 18:59 Intake Total 120 Balance 120 - Medications Medications: Current Medications Acetaminophen (Tylenol 325mg Tab) 650 mg PO Q4H PRN PRN Reason: Fever >100.4 F Last Admin: 12/10/17 22:52 Dose: 650 mg Calcium Carbonate (Oscal) 500 mg PO DAILY [facility] Last Admin: 12/11/17 09:50 Dose: 500 mg Ergocalciferol (Drisdol 50,000 Intl Units Cap) 1 cap PO Q7D [facility] Last Admin: 12/11/17 03:33 Dose: 1 cap Folic Acid (Folic Acid) 1 mg PO DAILY [facility] Last Admin: 12/11/17 09:50 Dose: 1 mg Cefepime HCl (Maxipime 2gm) 2 gm in 100 mls @ 100 mls/hr IVPB Q8 [facility] PRN Reason: Protocol Stop: 12/16/17 09:46 Last Admin: 12/11/17 13:05 Dose: Not Given Vancomycin HCl (Vancomycin 1gm) 1 gm in 250 mls @ 167 mls/hr IVPB Q12H [facility] PRN Reason: Protocol Last Admin: 12/11/17 12:52 Dose: 167 mls/hr Metoclopramide HCl (Reglan) 5 mg PO ACHS [facility] Last Admin: 12/11/17 12:51 Dose: 5 mg Mupirocin (Bactroban Ointment) 0 gm TOP BID [facility] Last Admin: 12/11/17 11:38 Dose: 1 applic Oseltamivir Phosphate (Tamiflu Cap) 75 mg PO BID [facility] PRN Reason: Protocol Stop: 12/16/17 11:27 Pantoprazole Sodium (Protonix Ec Tab) 40 mg PO BID [facility] Last Admin: 12/11/17 09:50 Dose: 40 mg Vitamin D (Vitamin D 400 Intl Units Tab) 400 intlu PO DAILY [facility] Last Admin: 12/11/17 09:50 Dose: 400 intlu Warfarin Sodium (Coumadin) 2 mg PO 1800 [facility] PRN Reason: Protocol - Labs Labs: 12/11/17 06:00 12/11/17 06:00 PT 13.6 SECONDS (9.4-12.5) H 12/11/17 10:00 INR 1.18 (0.93-1.08) H 12/11/17 10:00 APTT 39.9 Seconds (25.1-36.5) H 12/10/17 07:40 Assessment and Plan - Assessment and Plan (Free Text) Plan: 47 yr male w/ history of intellectual disability, GERD, aspiration pneumonia, multiple abdominal surgeries, perforation of stomach, anxiety, recurrent pneumonia, & chronic constipation. R leg DVT treated with eliquis and IVC filter insertion. L leg cellulitis treated topically. Multiple blood transfusions administered. Anemia persists; on 12/11 (Hgb=8.9). s/p sigmoidoscopy patient spiked a temp, tested positive for influenza A, and CXR shows possible pneumonia. Today, seen in his room resting comfortably in bed. Pt is a poor historian due to his mental disability. Denies any fever, chills, chest pain, shortness of breath, abdominal pain, nausea, vomiting or urinary problems.pt is seen and examined at bed side , agreed all above , chart , meds and labs noted , will f/u . d/d with family , perioperative tech and staff
--- NOTE | 2017-12-11 15:56 | CP.PCM.PN ---
<Samantha Waldron - Last Filed: 12/11/17 15:55> Subjective - Date & Time of Evaluation Date of Evaluation: 12/11/17 Time of Evaluation: 11:20 - Subjective Subjective: S&E at bedside, chart reviewed. status post EGD, found to have abnormal jejunum and patent partial gastrectomy, flexible sigmoidoscopy showed ileocolic anastomosis stricture with erosion and erythema. Patient had temp last night MAXIMUM TEMPERATURE of 100. Patient positive for influenza. No nausea, vomiting, or complaints of abdominal pain or overt GI bleed. Tolerating oral intake. Objective - Vital Signs/Intake and Output Vital Signs (last 24 hours): Temp Pulse Resp BP Pulse Ox 99 F 78 20 119/68 96 12/11/17 11:46 12/11/17 08:51 12/11/17 08:51 12/11/17 08:51 12/11/17 08:51 Intake and Output: 12/11/17 12/11/17 06:59 18:59 Intake Total 120 Balance 120 - Medications Medications: Current Medications Acetaminophen (Tylenol 325mg Tab) 650 mg PO Q4H PRN PRN Reason: Fever >100.4 F Last Admin: 12/10/17 22:52 Dose: 650 mg Calcium Carbonate (Oscal) 500 mg PO DAILY [facility] Last Admin: 12/11/17 09:50 Dose: 500 mg Ergocalciferol (Drisdol 50,000 Intl Units Cap) 1 cap PO Q7D [facility] Last Admin: 12/11/17 03:33 Dose: 1 cap Folic Acid (Folic Acid) 1 mg PO DAILY [facility] Last Admin: 12/11/17 09:50 Dose: 1 mg Cefepime HCl (Maxipime 2gm) 2 gm in 100 mls @ 100 mls/hr IVPB Q8 [facility] PRN Reason: Protocol Stop: 12/16/17 09:46 Last Admin: 12/11/17 13:05 Dose: Not Given Vancomycin HCl (Vancomycin 1gm) 1 gm in 250 mls @ 167 mls/hr IVPB Q12H [facility] PRN Reason: Protocol Last Admin: 12/11/17 12:52 Dose: 167 mls/hr Metoclopramide HCl (Reglan) 5 mg PO ACHS [facility] Last Admin: 12/11/17 12:51 Dose: 5 mg Mupirocin (Bactroban Ointment) 0 gm TOP BID [facility] Last Admin: 12/11/17 11:38 Dose: 1 applic Oseltamivir Phosphate (Tamiflu Cap) 75 mg PO BID [facility] PRN Reason: Protocol Stop: 12/16/17 11:27 Pantoprazole Sodium (Protonix Ec Tab) 40 mg PO BID [facility] Last Admin: 12/11/17 09:50 Dose: 40 mg Vitamin D (Vitamin D 400 Intl Units Tab) 400 intlu PO DAILY [facility] Last Admin: 12/11/17 09:50 Dose: 400 intlu Warfarin Sodium (Coumadin) 2 mg PO 1800 [facility] PRN Reason: Protocol - Labs Labs: 12/11/17 06:00 12/11/17 06:00 PT 13.6 SECONDS (9.4-12.5) H 12/11/17 10:00 INR 1.18 (0.93-1.08) H 12/11/17 10:00 APTT 39.9 Seconds (25.1-36.5) H 12/10/17 07:40 - Constitutional Appears: No Acute Distress - Head Exam Head Exam: NORMOCEPHALIC - Eye Exam Eye Exam: Normal appearance. absent: Scleral icterus - ENT Exam ENT Exam: Mucous Membranes Moist - Neck Exam Neck Exam: Normal Inspection - Respiratory Exam Respiratory Exam: NORMAL BREATHING PATTERN. absent: Respiratory Distress - Cardiovascular Exam Cardiovascular Exam: +S1, +S2 - GI/Abdominal Exam GI & Abdominal Exam: Soft, Normal Bowel Sounds. absent: Guarding, Tenderness, Rebound - Extremities Exam Extremities Exam: absent: Calf Tenderness, Pedal Edema - Neurological Exam Neurological Exam: Alert, Awake, Oriented x3 - Skin Skin Exam: Dry, Warm Assessment and Plan - Assessment and Plan (Free Text) Assessment: Assessment: Influenza Anemia DVT/PE, on Eliquis Colonic obstruction, history of recurrent SBO and multiple abdominal surgery H/O anastmotic ulcer Mentally challenged Plan: diet as tolerated On Predaxa on Colace On IV antibiotics as per ID On Reglan, recommend short course Monitor H&H and for GI bleed Continue GI prophylaxis On Tamiflu Seen and discussed with Dr. Davies <Cristiane Davies V - Last Filed: 12/11/17 22:34> Objective - Vital Signs/Intake and Output Vital Signs (last 24 hours): Temp Pulse Resp BP Pulse Ox 99 F 78 20 119/68 96 12/11/17 11:46 12/11/17 08:51 12/11/17 08:51 12/11/17 08:51 12/11/17 08:51 Intake and Output: 12/11/17 12/12/17 18:59 06:59 Intake Total 120 Balance 120 - Medications Medications: Current Medications Acetaminophen (Tylenol 325mg Tab) 650 mg PO Q4H PRN PRN Reason: Fever >100.4 F Last Admin: 12/10/17 22:52 Dose: 650 mg Calcium Carbonate (Oscal) 500 mg PO DAILY [facility] Last Admin: 12/11/17 09:50 Dose: 500 mg Ergocalciferol (Drisdol 50,000 Intl Units Cap) 1 cap PO Q7D [facility] Last Admin: 12/11/17 03:33 Dose: 1 cap Folic Acid (Folic Acid) 1 mg PO DAILY [facility] Last Admin: 12/11/17 09:50 Dose: 1 mg Cefepime HCl (Maxipime 2gm) 2 gm in 100 mls @ 100 mls/hr IVPB Q8 [facility] PRN Reason: Protocol Stop: 12/16/17 09:46 Last Admin: 12/11/17 22:17 Dose: 100 mls/hr Vancomycin HCl (Vancomycin 1gm) 1 gm in 250 mls @ 167 mls/hr IVPB Q12H [facility] PRN Reason: Protocol Last Admin: 12/11/17 21:52 Dose: 167 mls/hr Metoclopramide HCl (Reglan) 5 mg PO ACHS [facility] Last Admin: 12/11/17 22:18 Dose: 5 mg Mupirocin (Bactroban Ointment) 0 gm TOP BID [facility] Last Admin: 12/11/17 17:17 Dose: 1 applic Oseltamivir Phosphate (Tamiflu Cap) 75 mg PO BID [facility] PRN Reason: Protocol Stop: 12/16/17 11:27 Last Admin: 12/11/17 17:18 Dose: 75 mg Pantoprazole Sodium (Protonix Ec Tab) 40 mg PO BID [facility] Last Admin: 12/11/17 17:18 Dose: 40 mg Vitamin D (Vitamin D 400 Intl Units Tab) 400 intlu PO DAILY [facility] Last Admin: 12/11/17 09:50 Dose: 400 intlu Warfarin Sodium (Coumadin) 2 mg PO 1800 [facility] PRN Reason: Protocol Last Admin: 12/11/17 17:18 Dose: 2 mg - Labs Labs: 12/11/17 06:00 12/11/17 06:00 PT 13.6 SECONDS (9.4-12.5) H 12/11/17 10:00 INR 1.18 (0.93-1.08) H 12/11/17 10:00 APTT 39.9 Seconds (25.1-36.5) H 12/10/17 07:40 Attending/Attestation - Attestation I have personally seen and examined this patient.: Yes I have fully participated in the care of the patient.: Yes I have reviewed all pertinent clinical information, including history, physical exam and plan: Yes Notes (Text): This is an addendum to GI progress report dictated by Samantha Waldron APN.The patient was seen and examined earlier. Medical records, lab studies, imagings were reviewed. Last 24 hours events reviewed. Agreed with the above treatment plan as outlined in Samantha Waldron APN's notes the with the addition of the following 12/11/17 22:33
--- NOTE | 2017-12-11 19:22 | CP.PCM.CON ---
History of Present Illness - History of Present Illness History of Present Illness: 47 year old male with PMH of GERD, chronic anemia, anxiety, history of SBO, history of recurrent pneumonia, mental disability was initially admitted [place] [facility] because of dropping hemoglobin and hematocrit. He is being seen and treated by Heme/Onc and had been doing well until yesterday when the patient developed fevers yesterday. Patient has some cough, but denies chills, no vomiting, no headache, no abdominal pain, no diarrhea, no dysuria. CXR was done which is showing pneumonia and rapid flu test was done which is positive. Infectious Diseases consult is requested to further evaluate and manage. Review of Systems - Review of Systems All systems: reviewed and no additional remarkable complaints except (as per HPI ) Past Patient History - Infectious Disease Hx of Infectious Diseases: None - Tetanus Immunizations Tetanus Immunization: Unknown - Past Social History Smoking Status: Never Smoked - CARDIAC Hx Cardiac Disorders: Yes - PULMONARY Hx Respiratory Disorders: Yes Other/Comment: aspiration pneumonia - NEUROLOGICAL Other/Comment: As per patients family member mental retardation. - HEENT Hx HEENT Problems: No - RENAL Hx Chronic Kidney Disease: No - ENDOCRINE/METABOLIC Hx Endocrine Disorders: No - HEMATOLOGICAL/ONCOLOGICAL Hx Blood Transfusions: No Hx Blood Transfusion Reaction: No - INTEGUMENTARY Hx Dermatological Problems: Yes Other/Comment: MULTIPLE SCARRING TO ABDOMINAL AREA FROM MULTIPLE ABDOMINAL SURGERIES - MUSCULOSKELETAL/RHEUMATOLOGICAL Hx Falls: Yes - GASTROINTESTINAL Hx Gastrointestinal Disorders: Yes (gastric outlet obstruction,paralytic ileus, gerd,gi bleed,ileostomy-reversal) - GENITOURINARY/GYNECOLOGICAL Hx Genitourinary Disorders: No - PSYCHIATRIC Hx Emotional Abuse: No Hx Physical Abuse: No - SURGICAL HISTORY Hx Surgeries: Yes - ANESTHESIA Hx Anesthesia Reactions: No Hx Malignant Hyperthermia: No Meds Home Medications: Home Medication List Medication Instructions Recorded Confirmed Type Dabigatran [Pradaxa] 150 mg PO BID #60 cap 12/10/17 Rx Ergocalciferol [Drisdol 50,000 1 cap PO Q7D cap 12/10/17 Rx Intl Units Cap] Folic Acid 1 mg PO DAILY tab 12/10/17 Rx Mupirocin 2% Ointment [Bactroban 0 gm TOP BID tube 12/10/17 Rx Ointment] Pantoprazole [Protonix EC Tab] 40 mg PO BID ect 12/10/17 Rx Allergies/Adverse Reactions: Allergies Allergy/AdvReac Type Severity Reaction Status Date / Time No Known Allergies Allergy Verified 11/27/17 17:29 - Medications Medications: Current Medications Acetaminophen (Tylenol 325mg Tab) 650 mg PO Q4H PRN PRN Reason: Fever >100.4 F Last Admin: 12/10/17 22:52 Dose: 650 mg Calcium Carbonate (Oscal) 500 mg PO DAILY [facility] Last Admin: 12/10/17 09:41 Dose: Not Given Dabigatran (Pradaxa) 150 mg PO BID [facility] PRN Reason: Protocol Last Admin: 12/10/17 18:02 Dose: 150 mg Ergocalciferol (Drisdol 50,000 Intl Units Cap) 1 cap PO Q7D [facility] Last Admin: 12/11/17 03:33 Dose: 1 cap Folic Acid (Folic Acid) 1 mg PO DAILY [facility] Last Admin: 12/10/17 09:41 Dose: Not Given Sodium Chloride (Sodium Chloride 0.9%) 1,000 mls @ 100 mls/hr IV .Q10H [facility] Last Admin: 12/11/17 06:43 Dose: 100 mls/hr Cefepime HCl (Maxipime 2gm) 2 gm in 100 mls @ 100 mls/hr IVPB Q8 [facility] PRN Reason: Protocol Stop: 12/16/17 09:46 Vancomycin HCl (Vancomycin 1gm) 1 gm in 250 mls @ 167 mls/hr IVPB Q12H [facility] PRN Reason: Protocol Metoclopramide HCl (Reglan) 5 mg PO ACHS [facility] Last Admin: 12/11/17 06:43 Dose: 5 mg Mupirocin (Bactroban Ointment) 0 gm TOP BID [facility] Last Admin: 12/10/17 09:00 Dose: 1 applic Pantoprazole Sodium (Protonix Ec Tab) 40 mg PO BID [facility] Last Admin: 12/10/17 18:02 Dose: 40 mg Vitamin D (Vitamin D 400 Intl Units Tab) 400 intlu PO DAILY [facility] Last Admin: 12/10/17 09:41 Dose: Not Given Physical Exam - Constitutional Appears: Chronically Ill - Head Exam Head Exam: NORMAL INSPECTION - Neck Exam Neck exam: Negative for: Meningismus - Respiratory Exam Respiratory Exam: Decreased Breath Sounds - Cardiovascular Exam Cardiovascular Exam: +S1, +S2 - GI/Abdominal Exam GI & Abdominal Exam: Soft. absent: Tenderness Results - Vital Signs Recent Vital Signs: Last Vital Signs Temp 98.6 F 12/11/17 08:51 Pulse 78 12/11/17 08:51 Resp 20 12/11/17 08:51 BP 119/68 12/11/17 08:51 Pulse Ox 96 12/11/17 08:51 - Labs Result Diagrams: 12/11/17 06:00 12/11/17 06:00 Labs: Laboratory Results - last 24 hr 12/07/17 12/11/17 12/11/17 09:00 06:00 06:00 WBC 3.8 L D RBC 3.03 L Hgb 8.9 L D Hct 28.6 L MCV 94.4 MCH 29.4 MCHC 31.1 RDW 19.4 H Plt Count 179 MPV 9.7 Sodium 135 Potassium 3.8 Chloride 107 Carbon Dioxide 26 Anion Gap 6 L BUN 10 Creatinine 0.8 Est GFR ( Amer) > 60 Est GFR (Non-Af Amer) > 60 Random Glucose 75 Calcium 8.1 L Crossmatch See Detail Assessment & Plan - Assessment and Plan (Free Text) Plan: Assessment Left lower lobe HCAP as well as Influenza S/P Severe sepsis due to right leg cellulitis with associated DVT distal colonic obstruction GERD chronic anemia anxiety history of SBO history of recurrent pneumonia Plan started Vancomycin, CEfepime and Tamiflu and will monitor fever curve
[2017-12-12] MEDS: Cefepime IV 2 gm in NS 2 GM/100 ML BAG IVPB SCH ×3 (05:56→21:49)
[2017-12-12 08:18] LABS: INR 1.27 (0.93-1.08); PROTHROMBIN TIME 14.7 SECONDS (9.4-12.5)
[2017-12-12 08:19] LABS: HEMOGLOBIN 9.2 g/dL (14.0-18.0); MEAN CELL VOLUME 94.2 fl (80.0-105.0); MEAN CORPUSCULAR HEMOGLOBIN 29.6 pg (25.0-35.0); MEAN CORPUSCULAR HGB CONC 31.4 g/dl (31.0-37.0); RBC 3.11 10^6/uL (3.5-6.1); RED CELL DISTRIBUTION WIDTH 18.9 % (11.5-14.5); WHITE BLOOD COUNT 3.1 10^3/ul (4.5-11.0)
[2017-12-12 08:25] LABS: ALB/GLOB RATIO 0.7 (1.1-1.8); ALBUMIN 2.1 g/dL (3.0-4.8); ALT/SGPT 26 U/L (7-56); AST/SGOT 23 U/L (17-59); BLOOD UREA NITROGEN 13 mg/dL (7-21); GFR AFRICAN-AMERICAN > 60; GFR NON-AFRICAN AMERICAN > 60
[2017-12-12] MEDS: Cholecalciferol 400 Intl Units Tab PO SCH (09:42)
[2017-12-12] MEDS: Pantoprazole 40 mg EC Tab PO SCH ×2 (09:42→18:05)
[2017-12-12] MEDS: Vancomycin 1gm in NS 250ml 1 GM/250 ML BAG IVPB SCH ×2 (09:42→21:49)
--- NOTE | 2017-12-12 17:19 | CP.PCM.PN ---
Subjective - Date & Time of Evaluation Date of Evaluation: 12/12/17 Time of Evaluation: 11:25 - Subjective Subjective: Comfortable, resting comfortably, no fevers. Objective - Vital Signs/Intake and Output Vital Signs (last 24 hours): Temp Pulse Resp BP Pulse Ox 99 F 78 20 119/68 96 12/11/17 11:46 12/11/17 08:51 12/11/17 08:51 12/11/17 08:51 12/11/17 08:51 Intake and Output: 12/11/17 12/12/17 18:59 06:59 Intake Total 120 Balance 120 - Medications Medications: Current Medications Acetaminophen (Tylenol 325mg Tab) 650 mg PO Q4H PRN PRN Reason: Fever >100.4 F Last Admin: 12/10/17 22:52 Dose: 650 mg Calcium Carbonate (Oscal) 500 mg PO DAILY [facility] Last Admin: 12/11/17 09:50 Dose: 500 mg Ergocalciferol (Drisdol 50,000 Intl Units Cap) 1 cap PO Q7D [facility] Last Admin: 12/11/17 03:33 Dose: 1 cap Folic Acid (Folic Acid) 1 mg PO DAILY [facility] Last Admin: 12/11/17 09:50 Dose: 1 mg Cefepime HCl (Maxipime 2gm) 2 gm in 100 mls @ 100 mls/hr IVPB Q8 [facility] PRN Reason: Protocol Stop: 12/16/17 09:46 Last Admin: 12/11/17 13:05 Dose: Not Given Vancomycin HCl (Vancomycin 1gm) 1 gm in 250 mls @ 167 mls/hr IVPB Q12H [facility] PRN Reason: Protocol Last Admin: 12/11/17 12:52 Dose: 167 mls/hr Metoclopramide HCl (Reglan) 5 mg PO ACHS [facility] Last Admin: 12/11/17 17:18 Dose: 5 mg Mupirocin (Bactroban Ointment) 0 gm TOP BID [facility] Last Admin: 12/11/17 17:17 Dose: 1 applic Oseltamivir Phosphate (Tamiflu Cap) 75 mg PO BID [facility] PRN Reason: Protocol Stop: 12/16/17 11:27 Last Admin: 12/11/17 17:18 Dose: 75 mg Pantoprazole Sodium (Protonix Ec Tab) 40 mg PO BID [facility] Last Admin: 12/11/17 17:18 Dose: 40 mg Vitamin D (Vitamin D 400 Intl Units Tab) 400 intlu PO DAILY [facility] Last Admin: 12/11/17 09:50 Dose: 400 intlu Warfarin Sodium (Coumadin) 2 mg PO 1800 [facility] PRN Reason: Protocol Last Admin: 12/11/17 17:18 Dose: 2 mg - Labs Labs: 12/11/17 06:00 12/11/17 06:00 PT 13.6 SECONDS (9.4-12.5) H 12/11/17 10:00 INR 1.18 (0.93-1.08) H 12/11/17 10:00 APTT 39.9 Seconds (25.1-36.5) H 12/10/17 07:40 - Constitutional Appears: Chronically Ill - Head Exam Head Exam: NORMAL INSPECTION - Neck Exam Neck Exam: absent: Meningismus - Respiratory Exam Respiratory Exam: Decreased Breath Sounds - Cardiovascular Exam Cardiovascular Exam: +S1, +S2 - GI/Abdominal Exam GI & Abdominal Exam: Soft. absent: Tenderness Assessment and Plan - Assessment and Plan (Free Text) Plan: Assessment Left lower lobe HCAP as well as Influenza S/P Severe sepsis due to right leg cellulitis with associated DVT distal colonic obstruction GERD chronic anemia anxiety history of SBO history of recurrent pneumonia Plan continue Vancomycin, Cefepime and Tamiflu day 2 and will continue monitor fever curve; complete 5 days of Tamiflu and 4-7 days of antibiotics (Can switch to PO antibiotics once afebrile for 48 hours)
[2017-12-12 17:54] LABS: INR 1.17 (0.93-1.08); PROTHROMBIN TIME 13.4 SECONDS (9.4-12.5)
--- NOTE | 2017-12-12 20:26 | PN ---
DATE: SUBJECTIVE: Patient is as seen and examined at the bedside. Still having fever. Flu test is positive. No nausea, vomiting, diarrhea. Have history of shortness of breath. Patient is a very poor historian. No headache, no dizziness. No hematuria or hematochezia. No swelling of upper extremities. PHYSICAL EXAMINATION: VITAL SIGNS: Temperature 98.6, T-max is 100.0, pulse 91, blood pressure 90/50, respiratory rate 18. HEENT: Head: Normocephalic and atraumatic. Eyes: PERRLA. Extraocular muscles intact. Conjunctivae clear. Nose: Patent. NECK: Supple. No carotid bruit. No JVD or thyromegaly. CHEST: Bilaterally symmetrical. HEART: S1, S2 positive. LUNGS: Clear to auscultation. ABDOMEN: Soft. Bowel sounds present. No organomegaly. EXTREMITIES: No edema. No cyanosis. NEUROLOGIC: Patient is awake and alert. Moving all four extremities. No focal deficits. MEDICATIONS: Bactroban, Coumadin, vitamin D, folic acid, Maxipime, Os-Peter, Protonix, Reglan, Tamiflu, Tylenol, vancomycin. LABORATORY DATA: White blood cells 3.1, hemoglobin 9.8, hematocrit 29.3, platelets 153. Sodium 133, potassium 3.4, BUN 13, creatinine 0.8, glucose 93. ASSESSMENT AND PLAN: Mr. Sean Dee is a 47-year-old male with leukopenia, anemia, status post couple of times blood transfusion, hypocalcemia, influenza type A and B positive for A. Chest x-ray done, according to Dr. Kimberley Bond, suspect left lower lobe pneumonia, seen by Dr. Ramon oLve, Infectious Disease, looks like health care-associated pneumonia as well as influenza, status post severe sepsis due to right leg cellulitis with associated deep vein thrombosis, distal colonic obstruction, gastroesophageal reflux disease, anxiety, history of small bowel resection, history of recurrent pneumonia, history of pulmonary embolism. ID started vancomycin, cefepime, and Tamiflu. We will monitor fever curve. Patient has history of multiple abdominal surgeries, multiple times endoscopy and colonoscopy. ID and Pulmonary are on the case. Gastrointestinal and deep vein thrombosis prophylaxis. Repeat labs. We will follow up. Meme Rey MD [facility] # [phone]
--- NOTE | 2017-12-13 02:32 | PN ---
DATE: 12/12/2017 SUBJECTIVE: This patient was seen and evaluated earlier today. Patient is on respiratory isolation for flu. PHYSICAL EXAMINATION: VITAL SIGNS: Stable. Temperature is 98.6, blood pressure 90/50, respirations 18, O2 saturation 97%. HEENT: Atraumatic and anicteric. NECK: Supple. HEART: S1 and S2 heard. LUNGS: Bilateral air entry present. ABDOMEN: Soft. Bowel sounds present. EXTREMITIES: No edema. No cyanosis. LABORATORY DATA: Hemoglobin 9.2, hematocrit 29.3, WBC 3.1, platelets 153. Chemistry is essentially unremarkable except albumin 2.1. IMPRESSION AND PLAN : 1. This 47-year-old patient, mentally challenged, admitted with severe anemia, status post esophagogastroduodenoscopy and flexible sigmoidoscopy done. Esophagogastroduodenoscopy showed partial gastrectomy, anastomosis normal. No upper gastrointestinal source of bleed or blood loss noticed. Patient had a sigmoidoscopy, fand was ound to have a stricture at 17 cm anastamosis level. There was also mild erosions noticed. There was no blood or active bleeding noticed. I did have a detailed discussion with the titrator, Dr. Murillo. Patient did have a history of deep venous thrombosis, pulmonary embolism, and need to be on anticoagulation. Patient was initially started on Pradaxa. There is a concern about starting the newer anticoagulation in the setting of significant anemia and the patient's hemoglobin continues to drop No obvious melena or BRBPR The concern is drop in Hb and concerned about any jejunal or ileal lesion AVM, ulcerations could be a contributory factor. His other comorbidities include pneumonia, for which patient has been on antibiotics As per Infectious Disease, and also presently on Tamiflu for flu. The patient is presently on warfarin. We will follow up of the hemoglobin and hematocrit. 2. History of gastroparesis. Patient has been on Reglan with reduced dose. The plan is to slowly wean off the Reglan. We will continue the pureed diet. Thank you very much for allowing us to participate in the care of the patient. Cristiane Davies MD [facility]
--- NOTE | 2017-12-13 03:22 | CON ---
DATE: PULMONARY CONSULTATION REQUESTING PHYSICIAN: Dr. Rey REASON FOR CONSULTATION: DVT, status post IVC filter, has a pulmonary embolism. HISTORY OF PRESENT ILLNESS: This is a 47-year-old, intellectually disabled gentleman, who has a history of malnutrition, chronic anemia, history of small bowel obstruction, history of hemicolectomy, history of gastric surgery, recurrent intestinal obstruction, originally admitted with extensive DVT of the right lower extremity, received anticoagulation, also have IVC filter placed, has been followed by Hematology/Oncology, seen by Infectious Diseases. CT of the chest was done, which shows bilateral small pulmonary embolism, presently admitted on [facility] floor on anticoagulation. He had a chest x-ray done, which shows some infiltrate, also influenza testing was positive for influenza. Has mild cough. No hemoptysis, no hematemesis, no hematuria. Elevated right lower extremity. PAST MEDICAL HISTORY: As per history of present illness. ALLERGIES: NONE KNOWN. SOCIAL HISTORY: Intellectually disabled. No history of smoking or alcohol use. FAMILY HISTORY: He is adopted. No history is available. MEDICATIONS: He is on Bactroban ointment at affected area twice a day, Coumadin 2 mg on daily basis given, vitamin D 50,000 units q. 7 days, folic acid 1 mg daily, cefepime 1 g IV q. 8 hour, added Os-Peter 500 mg daily, Protonix 40 mg twice a day, Reglan 5 mg a.c. and at bedtime, Tamiflu 75 mg twice a day, Tylenol p.r.n., vancomycin 1 g IV q.12 hours, vitamin D 400 International Units daily. REVIEW OF SYSTEMS: He is sleepy and tired, some body aches and pain. No rhinitis. No significant cough, no vomiting. No hematuria. No diarrhea. Does have a right leg swelling. PHYSICAL EXAMINATION: GENERAL: No acute distress. VITAL SIGNS: Temperature is 98, T-max is 100, respiratory rate is 20, blood pressure is 103/61, pulse ox 94% on room air. HEENT: Moist mucous membranes. Small oral cavity. NECK: Supple. No JVD. LUNGS: Have fair airflow and rhonchi. HEART: S1 and S2. ABDOMEN: Soft, nontender, no organomegaly. EXTREMITIES: Does have a right leg edema, mildly tender to touch. NEUROLOGICAL: Sleepy, arousable. Follows simple commands. LABORATORY DATA: Shows hemoglobin 9.2, hematocrit 29.3, WBC 3.1, platelet is 153. INR 1.27. Sodium 136, potassium 3.7, chloride 106, bicarbonate 24, BUN 13, creatinine 0.8, calcium is 8.0, AST 23, ALT 26, alk phos is 45. Albumin is 2.1, procalcitonin less than 0.05. Had influenza test is done, which is positive for influenza A from yesterday. Microbiology, blood cultures and stool culture were unremarkable. Chest x-ray done yesterday shows suspected left lower lobe pneumonia. IMPRESSION AND PLAN: Influenza A infection with some bronchitis. Has a left lower lobe some infiltrate, could be atelectasis. Procalcitonin is negative. History of pulmonary embolism, deep venous thrombosis status post inferior vena cava filter, intellectually disabled, history of vitamin B12, iron-deficiency anemia, malnutrition. I agree with the present management. Continue Tamiflu. Keep head at 45 degrees. Continue anticoagulation, in the morning. Elevate right lower extremity. Fall precaution. Thank you and we will follow with you. Eber Ziegler MD
[2017-12-13] MEDS: Cefepime IV 2 gm in NS 2 GM/100 ML BAG IVPB SCH ×3 (05:19→22:07)
[2017-12-13 08:20] LABS: HEMOGLOBIN 9.7 g/dL (14.0-18.0); MEAN CELL VOLUME 92.7 fl (80.0-105.0); MEAN CORPUSCULAR HEMOGLOBIN 29.3 pg (25.0-35.0); MEAN CORPUSCULAR HGB CONC 31.6 g/dl (31.0-37.0); MEAN PLATELET VOLUME 10.2 fl (7.0-11.0); RBC 3.31 10^6/uL (3.5-6.1); RED CELL DISTRIBUTION WIDTH 18.2 % (11.5-14.5); WHITE BLOOD COUNT 3.9 10^3/ul (4.5-11.0)
[2017-12-13 08:31] LABS: INR 1.22 (0.93-1.08); PROTHROMBIN TIME 14.1 SECONDS (9.4-12.5)
[2017-12-13 08:40] LABS: BLOOD UREA NITROGEN 13 mg/dL (7-21); GFR AFRICAN-AMERICAN > 60; GFR NON-AFRICAN AMERICAN > 60
[2017-12-13] MEDS: Cholecalciferol 400 Intl Units Tab PO SCH (10:37)
[2017-12-13] MEDS: Pantoprazole 40 mg EC Tab PO SCH ×2 (10:37→17:29)
[2017-12-13] MEDS: Vancomycin 1gm in NS 250ml 1 GM/250 ML BAG IVPB SCH ×2 (10:38→22:14)
[2017-12-13 16:53] VITALS: RESP 20
--- NOTE | 2017-12-13 17:27 | CP.PCM.PN ---
Subjective - Date & Time of Evaluation Date of Evaluation: 12/13/17 Time of Evaluation: 10:10 - Subjective Subjective: Patient is feeling better, no fevers overnight, breathing better. Objective - Vital Signs/Intake and Output Vital Signs (last 24 hours): Temp Pulse Resp BP Pulse Ox 98.6 F 91 H 18 90/50 L 97 12/12/17 06:00 12/12/17 06:00 12/12/17 06:00 12/12/17 06:00 12/12/17 06:00 Intake and Output: 12/12/17 12/12/17 06:59 18:59 Intake Total 800 Balance 800 - Medications Medications: Current Medications Acetaminophen (Tylenol 325mg Tab) 650 mg PO Q4H PRN PRN Reason: Fever >100.4 F Last Admin: 12/10/17 22:52 Dose: 650 mg Calcium Carbonate (Oscal) 500 mg PO DAILY [facility] Last Admin: 12/12/17 09:42 Dose: 500 mg Ergocalciferol (Drisdol 50,000 Intl Units Cap) 1 cap PO Q7D [facility] Last Admin: 12/11/17 03:33 Dose: 1 cap Folic Acid (Folic Acid) 1 mg PO DAILY [facility] Last Admin: 12/12/17 09:42 Dose: 1 mg Cefepime HCl (Maxipime 2gm) 2 gm in 100 mls @ 100 mls/hr IVPB Q8 [facility] PRN Reason: Protocol Stop: 12/16/17 09:46 Last Admin: 12/12/17 14:21 Dose: 100 mls/hr Vancomycin HCl (Vancomycin 1gm) 1 gm in 250 mls @ 167 mls/hr IVPB Q12H [facility] PRN Reason: Protocol Last Admin: 12/12/17 09:42 Dose: 167 mls/hr Metoclopramide HCl (Reglan) 5 mg PO ACHS [facility] Last Admin: 12/12/17 13:13 Dose: 5 mg Mupirocin (Bactroban Ointment) 0 gm TOP BID [facility] Last Admin: 12/12/17 09:43 Dose: 1 applic Oseltamivir Phosphate (Tamiflu Cap) 75 mg PO BID [facility] PRN Reason: Protocol Stop: 12/16/17 11:27 Last Admin: 12/12/17 09:42 Dose: 75 mg Pantoprazole Sodium (Protonix Ec Tab) 40 mg PO BID [facility] Last Admin: 12/12/17 09:42 Dose: 40 mg Vitamin D (Vitamin D 400 Intl Units Tab) 400 intlu PO DAILY [facility] Last Admin: 12/12/17 09:42 Dose: 400 intlu Warfarin Sodium (Coumadin) 2 mg PO 1800 [facility] PRN Reason: Protocol Last Admin: 12/11/17 17:18 Dose: 2 mg - Labs Labs: 12/12/17 07:00 12/12/17 07:00 PT 14.7 SECONDS (9.4-12.5) H 12/12/17 07:00 INR 1.27 (0.93-1.08) H 12/12/17 07:00 APTT 39.9 Seconds (25.1-36.5) H 12/10/17 07:40 - Constitutional Appears: Chronically Ill - Head Exam Head Exam: NORMAL INSPECTION - Neck Exam Neck Exam: absent: Meningismus - Respiratory Exam Respiratory Exam: Decreased Breath Sounds - Cardiovascular Exam Cardiovascular Exam: +S1, +S2 - GI/Abdominal Exam GI & Abdominal Exam: Soft. absent: Tenderness Assessment and Plan - Assessment and Plan (Free Text) Plan: Assessment Left lower lobe HCAP as well as Influenza S/P Severe sepsis due to right leg cellulitis with associated DVT distal colonic obstruction GERD chronic anemia anxiety history of SBO history of recurrent pneumonia Plan continue Vancomycin, Cefepime and Tamiflu day 3 and will continue monitor fever curve; complete 5 days of Tamiflu and 4-7 days of antibiotics (Can switch to PO antibiotics once afebrile for 48 hours)
[2017-12-13 19:22] LABS: IRON 16 ug/dL (45-180)
[2017-12-13 19:32] LABS: % IRON SATURATION 7 % (20-55); TOTAL IRON BINDING CAPACITY 217 ug/dL (261-462)
--- NOTE | 2017-12-13 22:45 | PN ---
DATE: 12/13/2017 PULMONARY PROGRESS NOTE REFERRING PHYSICIAN: Dr. Rey. SUBJECTIVE: Patient is lying in the bed, head at 45 degrees. Elevated right lower extremity, has Florencio wraps on right lower extremity. Cough is better. Denies any headache. No fever. No chills. No nausea, no vomiting. No diarrhea. OBJECTIVE: GENERAL: In no acute distress. VITAL SIGNS: Temperature is 98, heart rate 89, respiratory rate is 20, blood pressure 95/50, pulse of 95% on room air. HEENT: Moist mucous membrane. Crowded airway. NECK: Supple. No JVD. LUNGS: Has fair airflow with rhonchi. HEART: S1 and S2. ABDOMEN: Soft, nontender. No organomegaly. EXTREMITIES: Right leg is still swollen, nontender, . NEUROLOGIC: Awake and alert, follows simple command. MEDICATIONS: He is on Bactroban ointment to affected area twice a day, Coumadin 2 mg will be given today, vitamin D is 50,000 units q. 7 day, folic acid 1 mg daily, cefepime 2 g IV q. 8 hours, Os-Peter 500 mg daily, Protonix 40 mg twice a day, Reglan 5 mg a.c. and at bedtime, Tamiflu 75 mg twice a day, Tylenol p.r.n., vancomycin 1 g IV q. 12 hours, vitamin D 400 International Units daily. LABORATORY DATA: Shows hemoglobin 9.7, hematocrit 30.7, WBC 3.9, platelet is 141. INR 1.2. Sodium 135, potassium 3.8, chloride 109, bicarbonate 21, BUN 13, creatinine 0.7, glucose 87, calcium is 8.0. Microbiology, blood culture, stool culture, there is no growth. C. diff is negative. IMPRESSION AND PLAN: Influenza A infection with acute bronchitis; left lower lobe atelectasis versus infiltrate; pulmonary embolism; deep venous thrombosis, status post inferior vena cava filter; intellectually disabled; vitamin B2 deficiency; iron-deficiency anemia; malnutrition; may need weekly Aranesp; continue antibiotics. Aspiration precaution. Out of bed to chair, physical therapy. Elevate right lower extremity. Follow up INR and CBC in the morning. Thank you and we will follow with you. Eber Ziegler MD [facility] # [phone]
--- NOTE | 2017-12-13 23:16 | CP.PCM.PN ---
Subjective - Date & Time of Evaluation Date of Evaluation: 12/11/17 Time of Evaluation: 14:00 - Subjective Subjective: Comfortable in bed. Positive for influenza A. Underwent EGD and colonoscopy, no source of bleeding identified. he has been requiring blood transfusion every few days. He has been on full dose anticoagulation . No overt bleeding from any site. left message with sister Ms. Valerio to call back yesterday. No call back yet. Objective - Vital Signs/Intake and Output Vital Signs (last 24 hours): Temp Pulse Resp BP Pulse Ox 98.6 F 89 20 95/50 L 95 12/13/17 16:52 12/13/17 16:52 12/13/17 16:52 12/13/17 16:52 12/13/17 16:52 Intake and Output: 12/13/17 12/14/17 18:59 06:59 Intake Total 540 Balance 540 - Medications Medications: Current Medications Acetaminophen (Tylenol 325mg Tab) 650 mg PO Q4H PRN PRN Reason: Fever >100.4 F Last Admin: 12/10/17 22:52 Dose: 650 mg Calcium Carbonate (Oscal) 500 mg PO DAILY [facility] Last Admin: 12/13/17 10:37 Dose: 500 mg Calcium/Vitamin D (Oscal-D 250 Mg-125 Units Tab) 1 tab PO DAILY [facility] Cyanocobalamin (Vitamin B12 1000 Mcg/Ml Inj) 1,000 mcg IM DAILY [facility] Ergocalciferol (Drisdol 50,000 Intl Units Cap) 1 cap PO Q7D [facility] Last Admin: 12/11/17 03:33 Dose: 1 cap Folic Acid (Folic Acid) 1 mg PO DAILY [facility] Last Admin: 12/13/17 10:37 Dose: 1 mg Cefepime HCl (Maxipime 2gm) 2 gm in 100 mls @ 100 mls/hr IVPB Q8 [facility] PRN Reason: Protocol Stop: 12/16/17 09:46 Last Admin: 12/13/17 22:07 Dose: 100 mls/hr Vancomycin HCl (Vancomycin 1gm) 1 gm in 250 mls @ 167 mls/hr IVPB Q12H [facility] PRN Reason: Protocol Last Admin: 12/13/17 22:14 Dose: 167 mls/hr Iron Sucrose 100 mg/ Sodium (Chloride) 105 mls @ 210 mls/hr IVPB DAILY [facility] Metoclopramide HCl (Reglan) 5 mg PO ACHS [facility] Last Admin: 12/13/17 17:29 Dose: 5 mg Mupirocin (Bactroban Ointment) 0 gm TOP BID [facility] Last Admin: 12/13/17 17:30 Dose: 1 applic Oseltamivir Phosphate (Tamiflu Cap) 75 mg PO BID [facility] PRN Reason: Protocol Stop: 12/16/17 11:27 Last Admin: 12/13/17 17:29 Dose: 75 mg Pantoprazole Sodium (Protonix Ec Tab) 40 mg PO BID [facility] Last Admin: 12/13/17 17:29 Dose: 40 mg Vitamin D (Vitamin D 400 Intl Units Tab) 400 intlu PO DAILY [facility] Last Admin: 12/13/17 10:37 Dose: 400 intlu Warfarin Sodium (Coumadin) 4 mg PO 1800 [facility] PRN Reason: Protocol - Labs Labs: 12/13/17 07:30 12/13/17 07:30 PT 14.1 SECONDS (9.4-12.5) H 12/13/17 07:30 INR 1.22 (0.93-1.08) H 12/13/17 07:30 APTT 39.9 Seconds (25.1-36.5) H 12/10/17 07:40 - Constitutional Appears: Chronically Ill - Head Exam Head Exam: ATRAUMATIC, NORMAL INSPECTION, NORMOCEPHALIC - Eye Exam Eye Exam: Normal appearance - ENT Exam ENT Exam: Mucous Membranes Moist - Neck Exam Neck Exam: Normal Inspection - Respiratory Exam Respiratory Exam: Clear to Ausculation Bilateral, NORMAL BREATHING PATTERN - Cardiovascular Exam Cardiovascular Exam: REGULAR RHYTHM, +S1, +S2 - GI/Abdominal Exam GI & Abdominal Exam: Soft, Normal Bowel Sounds - Extremities Exam Extremities Exam: Normal Inspection - Back Exam Back Exam: NORMAL INSPECTION - Neurological Exam Neurological Exam: Alert, Awake, Oriented x3 - Skin Skin Exam: Normal Color, Pallor Assessment and Plan - Assessment and Plan (Free Text) Assessment: 1. DVT right leg, PE bilateral . New onset. Thrombophilia work up showed only MTHFR gene mutation. It is a minor risk risk factor for DVT. factor V leidin, prothrombin gene mutation, JARRETT, antiphospholipid ab, negative. Anticoagualation is challenging as he is dropping hematocrit every few days. Not sure if family will bring him to office for follow up. left message with sister to call back yesterday, no call back till now. Will start low dose coumadin 2 mg daily. If he does not follow up in office then anticoagulation cannot be continued. He has been non compliant in past as per Dr. Rey. 2. severe iron deficiency anemia : related to ongoing GI bleed. iron studies repeated many times showing low iron. IV iron to continue as out patient. 3. FLU : new onset. on tamiflu. discussed with Dr. Davies, Dr. Rey.
--- NOTE | 2017-12-13 23:57 | PN ---
DATE: SUBJECTIVE: Patient is seen and examined at the bedside, looking comfortable, still on isolation. No hematuria or hematochezia. No swelling of the leg. No chest pain, no palpitation. No headache, no dizziness. No fever overnight. Breathing is better. PHYSICAL EXAMINATION: VITAL SIGNS: Temperature 98.6, pulse 91, respiratory rate 18, blood pressure 90/50, pulse oximetry 97. HEENT: Head: Normocephalic, atraumatic. Eyes: PERRLA. Extraocular muscles intact. Conjunctivae clear. Nose: Patent. Mucous membranes moist. NECK: Supple. No carotid bruit. No JVD or thyromegaly. CHEST: Bilaterally symmetrical. HEART: S1, S2 positive. LUNGS: Clear to auscultation. ABDOMEN: Soft. Bowel sounds present. No organomegaly. EXTREMITIES: No edema, no cyanosis. NEUROLOGIC: Patient is awake and alert. Moving all four extremities. No focal deficits. MEDICATIONS: Os-Peter, vitamin D, folic acid, cefepime, vancomycin, Reglan, Tamiflu, Protonix, Coumadin. LABORATORY DATA: White blood cell is 3.1, hemoglobin 9.2, hematocrit 29.3, platelets 162. Sodium 139, potassium 3.7, BUN 13, creatinine 0.8, glucose 93. ASSESSMENT AND PLAN: Mr. Sean Dee is a 47-year-old male, recent leukopenia, anemia, has left lower lobe healthcare-associated pneumonia as well as influenza, status post severe sepsis due to right leg cellulitis with associated deep venous thrombosis, distal colonic obstruction, gastroesophageal reflux disease, dyspepsia, history of [id number] anemia, anxiety, history of multiple blood transfusions, history of small bowel obstruction, recurrent pneumonia. Continue vancomycin, cefepime, Tamiflu day#3. We will continue to monitor fever curve and complete 5 days of Tamiflu, and 4 to 7 days of antibiotics and we will switch to p.o. antibiotics once afebrile for [address] Del Rosario, Infectious Disease, patient has history of pulmonary embolism, has Green filter in both inferior vena cava. 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 Patient is mentally challenged. Status post esophagogastroduodenoscopy and flexible sigmoidoscopy, showed partial gastrectomy anastomosis, normal. No upper gastrointestinal source of bleeding or blood loss notified. Patient' sigmoidoscopy found to have a stricture of 17 cm anastomosis level. There was also mild erosions noticed as per Dr. Davies. There is no blood or active bleeding noted. Dr. Murillo and Dr. Davies had length of time discussion done and I also knew about that. Patient has history of deep vein thrombosis, pulmonary embolism, and need to be on anticoagulation. Patient was initially started on Pradaxa. There was a concern about starting the new anticoagulation in the setting of the significant anemia and hemoglobin continued to drop. No obvious melena or bleeding. Patient is noncompliant. Sometimes, it will be hard to do PT/INR checking. Patient is presently on Coumadin, history of gastroparesis, was on Reglan. Plan is slowly wean off Reglan. We will continue with pureed diet. We will follow up. Meme Rey MD [facility]
[2017-12-14] MEDS: Cefepime IV 2 gm in NS 2 GM/100 ML BAG IVPB SCH (05:53)
[2017-12-14 06:40] LABS: MEAN CELL VOLUME 92.3 fl (80.0-105.0); MEAN CORPUSCULAR HGB CONC 31.5 g/dl (31.0-37.0); MEAN PLATELET VOLUME 10.3 fl (7.0-11.0); RBC 3.1 10^6/uL (3.5-6.1); RED CELL DISTRIBUTION WIDTH 18.1 % (11.5-14.5); WHITE BLOOD COUNT 3.3 10^3/ul (4.5-11.0)
[2017-12-14 06:50] LABS: INR 1.28 (0.93-1.08); PROTHROMBIN TIME 14.8 SECONDS (9.4-12.5)
[2017-12-14 07:02] LABS: BLOOD UREA NITROGEN 10 mg/dL (7-21); CALCIUM 8.1 mg/dL (8.4-10.5); GFR AFRICAN-AMERICAN > 60; GFR NON-AFRICAN AMERICAN > 60
[2017-12-14] MEDS: Cholecalciferol 400 Intl Units Tab PO SCH (09:15)
[2017-12-14] MEDS: Pantoprazole 40 mg EC Tab PO SCH (09:15)
[2017-12-14 09:17] VITALS: BP 99/55; PULSE 68; TEMP 98.3; O2SAT 100
[2017-12-14] MEDS: Vancomycin 1gm in NS 250ml 1 GM/250 ML BAG IVPB SCH (09:35)
[2017-12-14] MEDS ORDERED: Calcium-Vit D 250 mg-125 Units Tab UD PO SCH (10:00)
[2017-12-14] MEDS ORDERED: Iron Sucrose 100 mg/5 ml Inj IVP SCH (10:00)
--- NOTE | 2017-12-14 13:03 | CP.PCM.DIS ---
<Cristina Alford - Last Filed: 12/14/17 12:53> Provider - Provider Date of Admission: 12/05/17 20:57 Attending physician: Meme Rey MD Primary care physician: Meme Rey MD Consults: Pulmonary - Dr. Ziegler ID - Dr. Del Rosario IR - Dr. Chloe Easley GI - Dr. Davies Surgery - Dr. Brown Henson Hemo/Onc - Dr. Murillo Podiatry - Dr. Wilson Wound Care - Time Spent in preparation of Discharge (in minutes): 45 Diagnosis - Discharge Diagnosis (1) Influenza Status: Acute (2) Pneumonia Status: Acute (3) Severe anemia Status: Acute (4) GI bleed Status: Acute (5) Colonic obstruction Status: Chronic (6) Abdominal pain of unknown etiology Status: Acute (7) Actinic keratosis of right cheek Status: Acute (8) Anemia Status: Acute (9) Cellulitis Status: Acute (10) Pulmonary embolism Status: Acute (11) Small bowel obstruction Status: Acute (12) DVT (deep venous thrombosis) Status: Chronic (13) Mentally disabled Status: Chronic Hospital Course - Lab Results Lab Results: Micro Results 12/11/17 10:00 Blood-Venous Blood Culture - Preliminary NO GROWTH AFTER 3 DAYS 12/11/17 10:20 Blood-Venous Blood Culture - Preliminary NO GROWTH AFTER 3 DAYS 12/12/17 06:45 Stool C. difficile Antigen & Toxin A,B (M - Final Most Recent Lab Values WBC 3.3 10^3/ul (4.5-11.0) L 12/14/17 05:45 RBC 3.10 10^6/uL (3.5-6.1) L 12/14/17 05:45 Hgb 9.0 g/dL (14.0-18.0) L 12/14/17 05:45 Hct 28.6 % (42.0-52.0) L 12/14/17 05:45 MCV 92.3 fl (80.0-105.0) 12/14/17 05:45 MCH 29.0 pg (25.0-35.0) 12/14/17 05:45 MCHC 31.5 g/dl (31.0-37.0) 12/14/17 05:45 RDW 18.1 % (11.5-14.5) H 12/14/17 05:45 Plt Count 130 10^3/uL (120.0-450.0) 12/14/17 05:45 MPV 10.3 fl (7.0-11.0) 12/14/17 05:45 Gran % 66.0 % (50.0-68.0) 12/06/17 09:40 Lymph % (Auto) 22.2 % (22.0-35.0) 12/06/17 09:40 [place] % (Auto) 6.4 % (1.0-6.0) H 12/06/17 09:40 Eos % (Auto) 4.9 % (1.5-5.0) 12/06/17 09:40 Baso % (Auto) 0.5 % (0.0-3.0) 12/06/17 09:40 Gran # 3.93 (1.4-6.5) 12/06/17 09:40 Lymph # (Auto) 1.3 (1.2-3.4) 12/06/17 09:40 [place] # (Auto) 0.4 (0.1-0.6) 12/06/17 09:40 Eos # (Auto) 0.3 (0.0-0.7) 12/06/17 09:40 Baso # (Auto) 0.03 K/mm3 (0.0-2.0) 12/06/17 09:40 PT 14.8 SECONDS (9.4-12.5) H 12/14/17 05:45 INR 1.28 (0.93-1.08) H 12/14/17 05:45 APTT 39.9 Seconds (25.1-36.5) H 12/10/17 07:40 Sodium 135 mmol/L (132-148) 12/14/17 05:45 Potassium 3.8 mmol/L (3.6-5.0) 12/14/17 05:45 Chloride 108 mmol/L (98-107) H 12/14/17 05:45 Carbon Dioxide 23 mmol/L (21-33) 12/14/17 05:45 Anion Gap 8 (10-20) L 12/14/17 05:45 BUN 10 mg/dL (7-21) 12/14/17 05:45 Creatinine 0.6 mg/dl (0.8-1.5) L 12/14/17 05:45 Est GFR ( Amer) > 60 12/14/17 05:45 Est GFR (Non-Af Amer) > 60 12/14/17 05:45 Random Glucose 88 mg/dL (70-110) 12/14/17 05:45 Calcium 8.1 mg/dL (8.4-10.5) L 12/14/17 05:45 Iron 16 ug/dL (45-180) L 12/13/17 08:00 TIBC 217 ug/dL (261-462) L 12/13/17 08:00 % Saturation 7 % (20-55) L 12/13/17 08:00 Total Bilirubin 0.3 mg/dL (0.2-1.3) 12/12/17 07:00 AST 23 U/L (17-59) 12/12/17 07:00 ALT 26 U/L (7-56) 12/12/17 07:00 Alkaline Phosphatase 45 U/L (38-126) 12/12/17 07:00 Total Protein 5.1 g/dL (5.8-8.3) L 12/12/17 07:00 Albumin 2.1 g/dL (3.0-4.8) L 12/12/17 07:00 Globulin 3.0 gm/dL 12/12/17 07:00 Albumin/Globulin Ratio 0.7 (1.1-1.8) L 12/12/17 07:00 Procalcitonin < 0.05 NG/ML (0.19-0.49) L 12/11/17 10:00 TSH 3rd Generation 1.37 mIU/mL (0.46-4.68) 12/14/17 05:45 Influenza Typ A,B (EIA) Pos for influenza a (NEGATIVE) H 12/11/17 10:30 Blood Type O NEGATIVE 12/07/17 09:00 Antibody Screen Negative 12/07/17 09:00 Crossmatch See Detail 12/07/17 09:00 BBK History Checked Patient has bt 12/07/17 09:00 - Hospital Course Hospital Course: 47 yr male w/ history of intellectual disability, GERD, aspiration pneumonia, multiple abdominal surgeries, perforation of stomach, anxiety, recurrent pneumonia, & chronic constipation. R leg DVT treated with eliquis and IVC filter insertion. L leg cellulitis treated topically; Bacitracin BID to R leg. Multiple blood transfusions administered. GI work up done where no active bleed noted. Biposy taken in Endoscopy/Sigmoidoscopy and strictures, anastamosis with mild erosions noted. GI recommends not to use Pradaxa for VTE, COUMADIN will be used. Reglan will be weened off due to history of gasteroparesis. On 12/11, pt tested positive for influenza A and CXR shows L lower lobe, HCAP. Pt treated with tamiflu, IV vancomycin & cefepime. Per ID, pt can switch to PO. 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 Murillo. Reviewed: CXR = 12/11/17 - suspected L lower lobe pneumonia CXR = WNL R lower ext US = R extensive iliofemoral DVT ECG = NSR CTA chest/abd/pelvis = distal colonic obstruction w/ severe dilation of the proximal colon. the transition point is seen in rectosigmoid. very small bilateral pulmonary emboli VQ scan = low probability for pulmonary emboli - Date & Time of H&P Date of H&P: 12/14/17 Time of H&P: 11:30 Discharge Exam - Head Exam Head Exam: ATRAUMATIC, NORMAL INSPECTION, NORMOCEPHALIC - Eye Exam Eye Exam: EOMI, Normal appearance, PERRL Pupil Exam: NORMAL ACCOMODATION, PERRL - ENT Exam ENT Exam: Mucous Membranes Moist - Neck Exam Neck exam: Full Rom - Respiratory Exam Respiratory Exam: Decreased Breath Sounds, Rhonchi, NORMAL BREATHING PATTERN - Cardiovascular Exam Cardiovascular Exam: Tachycardia, +S1, +S2 - GI/Abdominal Exam GI & Abdominal Exam: Normal Bowel Sounds, Soft, Tenderness - Extremities Exam Extremities exam: normal capillary refill Additional comments: R leg mariah bandage applied, dressing C/D/I - Neurological Exam Neurological exam: Alert, Normal Gait, Oriented x3 - Psychiatric Exam Psychiatric exam: Normal Affect, Normal Mood - Skin Skin Exam: Dry, Intact, Pallor, Warm Discharge Plan - Discharge Medications Prescriptions: levoFLOXacin 500 mg in D5W [Levaquin 500MG] 500 mg PO DAILY #3 bag Oseltamivir [Tamiflu Cap] 75 mg PO BID #2 cap Oseltamivir Phosphate [Tamiflu] 75 mg PO BID #2 capsule Warfarin [Coumadin] 2 mg PO DAILY #7 tab - Follow Up Plan Condition: GOOD Disposition: HOME/ ROUTINE Instructions: Pneumonia in Adults, Deep Vein Thrombosis (Blood Clots in the Legs), Anemia of Chronic Disease, Upper GI Endoscopy, Dehydration (DC), Dehydration (GEN), Cellulitis (DC), Cellulitis (GEN), Acute Abdominal Pain (DC) , Acute Abdominal Pain (GEN) Referrals: Meme Rey MD [Primary Care Provider] - 1 Week Cristiane Davies MD [Medical Doctor] - 1 Week Candace Murillo MD [Staff Provider] - 1 Week <Meme Rey - Last Filed: 12/15/17 16:32> Provider - Provider Date of Admission: 12/05/17 20:57 Attending physician: Meme Rey MD Primary care physician: Meme Rey MD Hospital Course - Lab Results Lab Results: Micro Results 12/11/17 10:00 Blood-Venous Blood Culture - Preliminary NO GROWTH AFTER 4 DAYS 12/11/17 10:20 Blood-Venous Blood Culture - Preliminary NO GROWTH AFTER 4 DAYS 12/12/17 06:45 Stool C. difficile Antigen & Toxin A,B (M - Final Most Recent Lab Values WBC 3.3 10^3/ul (4.5-11.0) L 12/14/17 05:45 RBC 3.10 10^6/uL (3.5-6.1) L 12/14/17 05:45 Hgb 9.0 g/dL (14.0-18.0) L 12/14/17 05:45 Hct 28.6 % (42.0-52.0) L 12/14/17 05:45 MCV 92.3 fl (80.0-105.0) 12/14/17 05:45 MCH 29.0 pg (25.0-35.0) 12/14/17 05:45 MCHC 31.5 g/dl (31.0-37.0) 12/14/17 05:45 RDW 18.1 % (11.5-14.5) H 12/14/17 05:45 Plt Count 130 10^3/uL (120.0-450.0) 12/14/17 05:45 MPV 10.3 fl (7.0-11.0) 12/14/17 05:45 Gran % 66.0 % (50.0-68.0) 12/06/17 09:40 Lymph % (Auto) 22.2 % (22.0-35.0) 12/06/17 09:40 [place] % (Auto) 6.4 % (1.0-6.0) H 12/06/17 09:40 Eos % (Auto) 4.9 % (1.5-5.0) 12/06/17 09:40 Baso % (Auto) 0.5 % (0.0-3.0) 12/06/17 09:40 Gran # 3.93 (1.4-6.5) 12/06/17 09:40 Lymph # (Auto) 1.3 (1.2-3.4) 12/06/17 09:40 [place] # (Auto) 0.4 (0.1-0.6) 12/06/17 09:40 Eos # (Auto) 0.3 (0.0-0.7) 12/06/17 09:40 Baso # (Auto) 0.03 K/mm3 (0.0-2.0) 12/06/17 09:40 PT 14.8 SECONDS (9.4-12.5) H 12/14/17 05:45 INR 1.28 (0.93-1.08) H 12/14/17 05:45 APTT 39.9 Seconds (25.1-36.5) H 12/10/17 07:40 Sodium 135 mmol/L (132-148) 12/14/17 05:45 Potassium 3.8 mmol/L (3.6-5.0) 12/14/17 05:45 Chloride 108 mmol/L (98-107) H 12/14/17 05:45 Carbon Dioxide 23 mmol/L (21-33) 12/14/17 05:45 Anion Gap 8 (10-20) L 12/14/17 05:45 BUN 10 mg/dL (7-21) 12/14/17 05:45 Creatinine 0.6 mg/dl (0.8-1.5) L 12/14/17 05:45 Est GFR ( Amer) > 60 12/14/17 05:45 Est GFR (Non-Af Amer) > 60 12/14/17 05:45 Random Glucose 88 mg/dL (70-110) 12/14/17 05:45 Calcium 8.1 mg/dL (8.4-10.5) L 12/14/17 05:45 Iron 16 ug/dL (45-180) L 12/13/17 08:00 TIBC 217 ug/dL (261-462) L 12/13/17 08:00 % Saturation 7 % (20-55) L 12/13/17 08:00 Total Bilirubin 0.3 mg/dL (0.2-1.3) 12/12/17 07:00 AST 23 U/L (17-59) 12/12/17 07:00 ALT 26 U/L (7-56) 12/12/17 07:00 Alkaline Phosphatase 45 U/L (38-126) 12/12/17 07:00 Total Protein 5.1 g/dL (5.8-8.3) L 12/12/17 07:00 Albumin 2.1 g/dL (3.0-4.8) L 12/12/17 07:00 Globulin 3.0 gm/dL 12/12/17 07:00 Albumin/Globulin Ratio 0.7 (1.1-1.8) L 12/12/17 07:00 Folate 13.0 ng/mL 12/13/17 08:00 Procalcitonin < 0.05 NG/ML (0.19-0.49) L 12/11/17 10:00 TSH 3rd Generation 1.37 mIU/mL (0.46-4.68) 12/14/17 05:45 Influenza Typ A,B (EIA) Pos for influenza a (NEGATIVE) H 12/11/17 10:30 Blood Type O NEGATIVE 12/07/17 09:00 Antibody Screen Negative 12/07/17 09:00 Crossmatch See Detail 12/07/17 09:00 BBK History Checked Patient has bt 12/07/17 09:00 - Hospital Course Hospital Course: pt is seen and examined at bed side , looking comfortable , agreed all above , no change of status , chart , meds and labs noted , will f/u
--- NOTE | 2017-12-14 14:17 | CP.PCM.PN ---
Subjective - Date & Time of Evaluation Date of Evaluation: 12/14/17 Time of Evaluation: 10:55 - Subjective Subjective: Comfortable in bed, no fevers, not in distress. Objective - Vital Signs/Intake and Output Vital Signs (last 24 hours): Temp Pulse Resp BP Pulse Ox 98.6 F 89 20 95/50 L 95 12/13/17 16:52 12/13/17 16:52 12/13/17 16:52 12/13/17 16:52 12/13/17 16:52 Intake and Output: 12/13/17 12/13/17 06:59 18:59 Intake Total 990 Balance 990 - Medications Medications: Current Medications Acetaminophen (Tylenol 325mg Tab) 650 mg PO Q4H PRN PRN Reason: Fever >100.4 F Last Admin: 12/10/17 22:52 Dose: 650 mg Calcium Carbonate (Oscal) 500 mg PO DAILY [facility] Last Admin: 12/13/17 10:37 Dose: 500 mg Ergocalciferol (Drisdol 50,000 Intl Units Cap) 1 cap PO Q7D [facility] Last Admin: 12/11/17 03:33 Dose: 1 cap Folic Acid (Folic Acid) 1 mg PO DAILY [facility] Last Admin: 12/13/17 10:37 Dose: 1 mg Cefepime HCl (Maxipime 2gm) 2 gm in 100 mls @ 100 mls/hr IVPB Q8 [facility] PRN Reason: Protocol Stop: 12/16/17 09:46 Last Admin: 12/13/17 13:37 Dose: 100 mls/hr Vancomycin HCl (Vancomycin 1gm) 1 gm in 250 mls @ 167 mls/hr IVPB Q12H [facility] PRN Reason: Protocol Last Admin: 12/13/17 10:38 Dose: 167 mls/hr Metoclopramide HCl (Reglan) 5 mg PO ACHS [facility] Last Admin: 12/13/17 10:37 Dose: 5 mg Mupirocin (Bactroban Ointment) 0 gm TOP BID [facility] Last Admin: 12/13/17 10:37 Dose: 1 applic Oseltamivir Phosphate (Tamiflu Cap) 75 mg PO BID [facility] PRN Reason: Protocol Stop: 12/16/17 11:27 Last Admin: 12/13/17 10:37 Dose: 75 mg Pantoprazole Sodium (Protonix Ec Tab) 40 mg PO BID [facility] Last Admin: 12/13/17 10:37 Dose: 40 mg Vitamin D (Vitamin D 400 Intl Units Tab) 400 intlu PO DAILY [facility] Last Admin: 12/13/17 10:37 Dose: 400 intlu Warfarin Sodium (Coumadin) 2 mg PO 1800 [facility] PRN Reason: Protocol Last Admin: 12/12/17 18:05 Dose: 2 mg - Labs Labs: 12/13/17 07:30 12/13/17 07:30 PT 14.1 SECONDS (9.4-12.5) H 12/13/17 07:30 INR 1.22 (0.93-1.08) H 12/13/17 07:30 APTT 39.9 Seconds (25.1-36.5) H 12/10/17 07:40 - Constitutional Appears: Chronically Ill - Head Exam Head Exam: NORMAL INSPECTION - ENT Exam ENT Exam: Mucous Membranes Moist - Neck Exam Neck Exam: absent: Meningismus - Respiratory Exam Respiratory Exam: Decreased Breath Sounds - Cardiovascular Exam Cardiovascular Exam: +S1, +S2 - GI/Abdominal Exam GI & Abdominal Exam: absent: Tenderness Assessment and Plan - Assessment and Plan (Free Text) Plan: Assessment Left lower lobe HCAP as well as Influenza, clinically improving S/P Severe sepsis due to right leg cellulitis with associated DVT distal colonic obstruction GERD chronic anemia anxiety history of SBO history of recurrent pneumonia Plan on Vancomycin, Cefepime and Tamiflu day 4 and will continue monitor fever curve ; complete 5 days of Tamiflu and 4-7 days of antibiotics (Can switch to PO antibiotics (ie. Levaquin) since he has been afebrile for at least 48 hours)
--- NOTE | 2017-12-15 08:39 | CON ---
DATE: 12/13/2017 This patient was seen and evaluated earlier today. Patient is comfortable, tolerating the diet, on respiratory isolation for flu. PHYSICAL EXAMINATION VITAL SIGNS: Temperature 98.4, blood pressure 100/59, pulse 86, respirations 18, O2 saturation is 98%. HEENT: Atraumatic and anicteric. NECK: Supple. HEART: S1 and S2 heard. LUNGS: Bilateral air entry present. ABDOMEN: Soft. There is no tenderness. EXTREMITIES: No edema. LABORATORY DATA: Hemoglobin is stable at 9.7, hematocrit 30.7, WBC 3.9, platelets 141,000. INR 1.22. IMPRESSION: This 47-year-old patient, mentally challenged, was admitted with severe anemia, status post esophagogastroduodenoscopy and flexible sigmoidoscopy done. Esophagogastroduodenoscopy revealed partial gastrectomy and no upper gastrointestinal source of blood loss noticed. Colonoscopy and probably sigmoidoscopy, advanced the scope up to anastomosis. There are small erosions and erythema noticed. Regular colonoscope could not be advanced, it was removed and then, pediatric gastroscope was advanced through the stricture into the ileum. There is no active bleeding noticed. There are small erosions noticed. I did have detailed discussion with Dr. Murillo. Presently on warfarin. Continue to closely follow up hemoglobin and hematocrit. Thank you very much for allowing us to participate in the care of the patient. Cristiane Davies MD
== END 2017-12-14 12:48 | disposition home or self-care (01) | DRG 377 ==
LOC: 3RNO 20:57
PROVIDERS: ADMIT Internal Medicine; ATTEND Internal Medicine
PROC: 0DJD8ZZ Inspection of Lower Intestinal Tract, Via Natural or Artificial Opening Endoscopic (ICD-10-PCS; principal; 2017-12-10 10:00)
PROC: 0DJ08ZZ Inspection of Upper Intestinal Tract, Via Natural or Artificial Opening Endoscopic (ICD-10-PCS; 2017-12-10 10:00)
DX: K92.2 Gastrointestinal hemorrhage, unspecified (principal); D50.9 Iron deficiency anemia, unspecified; J10.00 Influenza due to other identified influenza virus with unspecified type of pneumonia; E46 Unspecified protein-calorie malnutrition; K56.609 Unspecified intestinal obstruction, unspecified as to partial versus complete obstruction; E87.8 Other disorders of electrolyte and fluid balance, not elsewhere classified; K31.84 Gastroparesis; L03.116 Cellulitis of left lower limb; Q90.9 Down syndrome, unspecified; F79 Unspecified intellectual disabilities; F41.9 Anxiety disorder, unspecified; K21.9 Gastro-esophageal reflux disease without esophagitis; L57.0 Actinic keratosis; E53.8 Deficiency of other specified B group vitamins; E55.9 Vitamin D deficiency, unspecified; D72.819 Decreased white blood cell count, unspecified; K59.00 Constipation, unspecified; Z86.718 Personal history of other venous thrombosis and embolism; Z86.711 Personal history of pulmonary embolism; Z79.01 Long term (current) use of anticoagulants; Z87.01 Personal history of pneumonia (recurrent); Z90.49 Acquired absence of other specified parts of digestive tract; Z90.3 Acquired absence of stomach [part of]; Z78.9 Other specified health status; Z91.19 Patient's noncompliance with other medical treatment and regimen; Z81.0 Family history of intellectual disabilities

== ENCOUNTER 2018-06-28 17:26 | Inpatient (IN) | payer MEDICARE, MEDICAID ==
--- NOTE | 2018-06-28 17:55 | ED PDOC ---
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 Patient was at his drawer in dobby lo[employer]'s office today for a follow-up when his systolic blood pressure incidentally dropped to 60mmHg when he gets up and appear to be pale, for which EMS was called immediately. Upon EMS arrival, patient's blood pressure was unchanged and was brought to the Emergency department immediately for medical evaluation. Patient's blood pressure upon arrival to the Emergency department was 60/46 mmHg and heart rate was 99bpm, appears pale but alert and oriented, immediately seen at the bedside. Patient does not verbalize but is expressing abdominal pain which he is point. ROS limited secondary to patient's inability to verbalize. (Bart Salazar) Past Medical History - Provider Review Nursing Documentation Reviewed: Yes - Infectious Disease Hx of Infectious Diseases: None - Tetanus Immunization Tetanus Immunization: Unknown - Cardiac Hx Cardiac Disorders: Yes - Pulmonary Hx Respiratory Disorders: Yes Other/Comment: aspiration pneumonia - Neurological Other/Comment: As per patients family member mental retardation. - HEENT Hx HEENT Disorder: No - Renal Hx Renal Disorder: No - Endocrine/Metabolic Hx Endocrine Disorders: No - Hematological/Oncological Hx Blood Transfusions: No Hx Blood Transfusion Reaction: No - Integumentary Hx Dermatological Disorder: Yes Other/Comment: MULTIPLE SCARRING TO ABDOMINAL AREA FROM MULTIPLE ABDOMINAL SURGERIES - Musculoskeletal/Rheumatological Hx Falls: Yes - Gastrointestinal Hx Gastrointestinal Disorders: Yes (gastric outlet obstruction,paralytic ileus, gerd,gi bleed,ileostomy-reversal) - Genitourinary/Gynecological Hx Genitourinary Disorders: No - Psychiatric Hx Emotional Abuse: No Hx Physical Abuse: No Hx Substance Use: No - Past Surgical History Past Surgical History: Non-Contributing - Surgical History Other/Comment: small bowel resection. inguinal hernia repair - Anesthesia Hx Anesthesia Reactions: No Hx Malignant Hyperthermia: No - Suicidal Assessment Feels Threatened In Home Enviroment: No Family/Social History - Physician Review Nursing Documentation Reviewed: Yes Family/Social History: No Known Family HX Smoking Status: Never Smoked Hx Alcohol Use: No Hx Substance Use: No Hx Substance Use Treatment: No Allergies/Home Meds Allergies/Adverse Reactions: Allergies No Known Allergies Allergy (Verified 11/27/17 17:29) Review of Systems - Review of Systems Systems not reviewed;Unavailable: Other (Patient does not verbalize) Constitutional: absent: Fevers Respiratory: Cough Gastrointestinal: Abdominal Pain, Diarrhea. absent: Nausea, Vomiting Skin: absent: Rash Physical Exam - Physical Exam Physical Exam Limitations: Clinical Condition, Other (mental retardation) Vital Signs Reviewed: Yes Temperature: Afebrile Blood Pressure: Hypotensive Pulse: Regular Respiratory Rate: Normal Appearance: Positive for: Well-Appearing, Non-Toxic, Comfortable Pain Distress: None - Systems Exam Head: Present: Atraumatic, Normocephalic Pupils: Present: PERRL Extroacular Muscles: Present: EOMI Conjunctiva: Present: Normal Mouth: Present: Moist Mucous Membranes Neck: Present: Normal Range of Motion Respiratory/Chest: Present: Clear to Auscultation, Good Air Exchange. No: Respiratory Distress, Accessory Muscle Use Cardiovascular: Present: Regular Rate and Rhythm, Normal S1, S2. No: Murmurs Abdomen: Present: Tenderness (lower abdomen), Normal Bowel Sounds. 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 Guaiac exam is positive). No: Rectal Tenderness, Gross Blood, Melena, Fissures, Nodule/Mass/Lesions Back: Present: Normal Inspection Upper Extremity: Present: Normal Inspection. No: Cyanosis, Edema Lower Extremity: Present: Normal Inspection. No: Edema Neurological: Present: GCS=15, CN II-XII Intact, Other (limited exam due to the mental retardationg. ) Skin: Present: Warm, Dry, Normal Color. No: Rashes Psychiatric: Present: Alert, Oriented x 3, Normal Insight, Normal Concentration Vital Signs Temp Pulse Resp BP Pulse Ox 06/29/18 01:02 88 16 94/52 L 97 06/29/18 01:00 88 16 102/54 L 98 06/28/18 23:49 85 16 102/55 L 98 06/28/18 21:58 89 18 110/77 100 06/28/18 21:55 87 20 95/45 L 100 06/28/18 21:49 87 16 77/35 L 100 06/28/18 21:38 95 H 16 80/34 L 100 06/28/18 20:21 85 18 100/45 L 100 06/28/18 18:24 97.3 F L 96 H 18 112/86 100 06/28/18 17:40 99 H 18 60/46 L 100 Medical Decision Making - Critical Care Critical Care Minutes: 45 minutes Critical Care Time: Unstable - Lab Interpretations I have reviewed the lab results: Yes - RAD Interpretation Safety Director: Radiologist - EKG Interpretation Interpreted by ED Physician: Yes Type: 12 lead EKG ED Course and Treatment: 06/28/18 18:17 -Labs/type and screen/vbg/ua/stool cultures -CT abdomen and pelvis -Chest xray -IVF bolus/protonix -nurse monitoring -Case examined and discussed with Dr. Wolf. 06/28/18 18:56 -IVF stopped, only 250cc given total to correct hellen BP which is now around 110/ 60s now with HR 80s, BP is stable, will discontinue fluid until electrolyte. -Sister Iman is in the ER, stating that is the usual BP for him is around 60/46 (I checked the previous charts and admission which this is not the case), Na 120 (not a baseline for the patient) which the sister stated that's baseline for him and had recent lab work by Dr. Rey and it was perfect. I asked the sister Iman if she is the power of immigration attorney for the patient, sister Iman stated that she doesn't have legal paper to show that she can make decision for him. I stated that I will contact the pmd Dr. Rey about these abnormal vital signs. Sister Iman is very unhappy with the care provided in the ER as the patient is here at the ER, and left the hospital. 06/28/18 20:57 -Pt. IV infiltrated during the contrast, CT abdomen and pelvis dry scan ordered due to the level of severity. -EKG: NSR @ 96 BPM, no ST elevation or depression, no T wave inversion. -Chest xray: no active disease -CT Abdomen and pelvis: show There are dilated bowel loops noted and there is wall thickening noted as well. This may represent colitis due to infectious versus inflammatory. No definite transition point is identified. However clinical correlation and followup is advised as indicated. -Labs show no acute findings except Hgb 9.6 from 9.0 (chronic anemia), Na 120 from 135 (IVF stopped earlier, spoke to sister that the patient has been drinking alot of fluid from the chronic diarrhea, BP normal so the fluid stopped ) -Lactic acid within normal limit -BNP and Troponin within normal limit. -INR is 3.36 from 1.28 -UA ordered and pending results. IV flagyl and cipro ordered, pending stool culture and c.diff result. -Pt. feels well -I discussed the case with Dr. Rey about this case/labs/radiology results, agreed this patient will need admission and the patient agreed to be admitted, request to admit to inpatient tele with Dr. Keke Sauer on routine consult. Dr. Rey will follow up on any pending labs/radiology results. 06/28/18 22:00 -I passed by the stretcher again, the patient's BP noted to be around 80/46 with HR around 80s, paged ICU Dr. Juarez. -I spoke to the ICU attending tonight, Dr. Juarez, discussed about the case/ labs/radiology results and vital signs, will admit the patient to ICU due to the hemodynamically instability. Pt. is hypotensive but non-tachycardia, alert and oriented , multiple BP checks by me with SURESH Ponce on the bedside, Dr. Juarez will take this patient to the ICU due to the diarrhea/gi bleed and hypotensive episodes and he will adjust the fluid with BP management for this patient until he is hemodynamically stable for downgrade otherwise. -Will add IV protonix, osmolarity lab works and the pmd would follow up. (Bart Salazar) - Critical Care Narrative Critical Care (Text): 07/03/18 09:51 GI bleed, hypotensive, diarrhea, hyponatremia, ICU consul and admission. (Bart Salazar) - Lab Interpretations Microbiology Results: Microbiology Results 06/28/18 18:51 Blood Blood Culture - Preliminary NO GROWTH AFTER 4 DAYS Lab Results: 06/28/18 18:41 06/28/18 18:41 Lab Results 06/28/18 19:00: Blood Type O NEGATIVE, Antibody Screen Negative, Crossmatch See Detail, BBK History Checked Patient has bt 06/28/18 18:41: Sodium 120 L, Chloride 96 L, Potassium 3.6, Carbon Dioxide 16 L , Anion Gap 11, BUN 29 H, Creatinine 1.1, Est GFR ( Amer) > 60, Est GFR ( Non-Af Amer) > 60, Random Glucose 97, Calcium 7.6 L, Magnesium 2.3 H, Total Bilirubin 0.1 L, AST 34, ALT 45, Alkaline Phosphatase 89, Lactate Dehydrogenase 502, Total Creatine Kinase 67, Troponin I < 0.01, NT-Pro-B Natriuret Pep 350, Total Protein 4.1 L, Albumin 1.7 L, Globulin 2.5, Albumin/Globulin Ratio 0.7 L, Lipase 12 L 06/28/18 18:41: PT 39.3 H, INR 3.36, APTT 43.0 H 06/28/18 18:41: WBC 8.2 D, RBC 3.78, Hgb 9.6 L, Hct 28.6 L, MCV 75.7 L D, MCH 25.4, MCHC 33.6, RDW 15.3 H, Plt Count 448, MPV 9.2, Gran % 73.3 H, Lymph % ( Auto) 16.9 L, [place] % (Auto) 9.6 H, Eos % (Auto) 0.1 L, Baso % (Auto) 0.1, Gran # 6.01, Lymph # (Auto) 1.4, [place] # (Auto) 0.8 H, Eos # (Auto) 0.0, Baso # (Auto ) 0.01 06/28/18 18:36: pO2 54, VBG pH 7.21 L, VBG pCO2 38.0 L, VBG HCO3 15.2 L, VBG Total CO2 16.4 L, VBG O2 Sat (Calc) 82.2 H, VBG Base Excess -11.9 L, VBG Potassium 3.8, Sodium 119.0 L*, Chloride 94.0 L, Glucose 96, Lactate 1.7, FiO2 21.0, Venous Blood Potassium 3.8 - RAD Interpretation Radiology Orders: 06/28/18 17:56 CHEST PORTABLE [RAD] Stat 06/28/18 18:00 ABD & PELVIS W/O PO OR IV CONT [CT] Stat Chest xray: No active disease CT Abdomen and pelvis: COMPARISON: CT - ABD PELVIS IV CONTRAST ONLY 08/18/2016 10:49 AM FINDINGS: Limitations: Evaluation is limited due to lack of IV contrast. Lung bases: Unremarkable. No mass. No consolidation. ABDOMEN: Liver: Heterogenous in appearance. Gallbladder and bile ducts: The gallbladder is not visualized. No ductal dilation. Pancreas: Question of pancreatic atrophy, limited evaluation. No ductal dilation. Spleen: Unremarkable. No splenomegaly. Adrenals: Unremarkable. No mass. Kidneys and ureters: Unremarkable. No obstructing stones. No hydronephrosis. Stomach and bowel: There are dilated bowel loops noted and there is wall thickening noted as well. This may represent colitis due to infectious versus inflammatory. No definite transition point is identified. However clinical correlation and followup is advised as indicated. Bowel evaluation is limited due to lack of distention. PELVIS: TENZIN RODRIGUES | Preliminary Radiology Report MILLINERY TEACHER (QA) DISCREPANCY? If there is a discrepancy between the preliminary and final interpretation, please notify [email or web address] via [email or web address]. If you do not have access to our QA portal, call our QA team at [phone] CONFIDENTIALITY STATEMENT This report is intended only for the use of the referring physician, and only in accordance with law, If you received this in error, call [phone] Page 2 of 2 Appendix: No findings to suggest acute appendicitis. Bladder: Unremarkable. No stones. Reproductive: Unremarkable as visualized. ABDOMEN and PELVIS: Intraperitoneal space: Unremarkable. No free air. No significant fluid collection. Bones/joints: No acute fracture. No dislocation. Soft tissues: Unremarkable. Vasculature: Unremarkable. No abdominal aortic aneurysm. Lymph nodes: Unremarkable. No enlarged lymph nodes. IMPRESSION: There are dilated bowel loops noted and there is wall thickening noted as well. This may represent colitis due to infectious versus inflammatory. No definite transition point is identified. However clinical correlation and followup is advised as indicated. Thank you for allowing us to participate in the care of your patient. Dictated and Authenticated by: Anayeli Merino MD 06/28/2018 9:44 PM Eastern Time ([place] & [place]) (Bart Salazar) - EKG Interpretation EKG Interpretation (Text): 06/28/18 18:21 -NSR @ 96 BPM, no ST elevation or depression, no T wave inversion. (Bart Salazar) - Medication Orders Current Medication Orders: Calcium Carbonate (Caltrate) 600 mg PO DAILY ETHAN Last Admin: 07/03/18 09:13 Dose: 600 mg Cholecalciferol (Vitamin D) 2,000 intlu PO DAILY ETHAN Last Admin: 07/03/18 09:12 Dose: 2,000 intlu Ergocalciferol (Drisdol 50,000 Intl Units Cap) 1 cap PO Q7D ETHAN Last Admin: 06/29/18 10:24 Dose: 1 cap Ferrous Gluconate (Fergon) 324 mg PO TID ETHAN Last Admin: 07/03/18 09:13 Dose: 324 mg Folic Acid (Folic Acid) 1 mg PO DAILY ETHAN Last Admin: 07/03/18 09:13 Dose: 1 mg Metronidazole (Flagyl) 500 mg in 100 mls @ 100 mls/hr IVPB Q8 ETHAN PRN Reason: Protocol Last Admin: 07/03/18 06:18 Dose: 100 mls/hr eMAR Start Stop Document 07/03/18 06:18 [facility] (Rec: 07/03/18 06:18 [id number]) Intravenous Solution Start Date 07/03/18 Start Time 06:18 Sodium Bicarbonate 150 meq/ (Dextrose) 1,150 mls @ 100 mls/hr IV .[id number] ETHAN Last Admin: 07/03/18 06:17 Dose: 100 mls/hr eMAR Start Stop Document 07/03/18 06:17 [facility] (Rec: 07/03/18 06:18 [id number]) Intravenous Solution Start Date 07/03/18 Start Time 06:17 End Date 07/03/18 Mupirocin (Bactroban Ointment) 0 gm TOP BID ETHAN Last Admin: 07/03/18 09:12 Dose: 1 applic Pantoprazole Sodium (Protonix Ec Tab) 40 mg PO 0600,1600 [facility] Last Admin: 07/03/18 06:19 Dose: 40 mg Thiamine HCl (Vitamin B1 Tab) 100 mg PO DAILY [facility] Last Admin: 07/03/18 09:13 Dose: 100 mg Vitamin B Complex/Vit C/Folic Acid (Nephro-Batsheva) 1 tab PO 0800 [facility] Last Admin: 07/03/18 09:13 Dose: 1 tab Discontinued Medications Albumin Human (Albumin Human 25% (12.5 Gm/50 Ml)) 25 gm IV Q6 ETHAN Stop: 07/01/18 06:01 Last Admin: 06/30/18 16:19 Dose: Albumin Human (Albumin Human 25% (25 Gm/100 Ml)) 25 gm IV Q6 ETHAN Stop: 07/01/18 06:01 Last Admin: 07/01/18 06:26 Dose: 25 gm eMAR Start Stop Document 07/01/18 06:26 [facility] (Rec: 07/01/18 06:26 [facility]-[id number]) Intravenous Solution Start Date 07/01/18 Start Time 06:26 Albumin Human (Albumin Human 25% (25 Gm/100 Ml)) 25 gm IV ONCE ONE Stop: 07/01/18 10:57 Last Admin: 07/01/18 11:23 Dose: 25 gm eMAR Start Stop Document 07/01/18 11:23 AJ (Rec: 07/01/18 11:24 AJ [facility] [place] [id number]) Intravenous Solution Start Date 07/01/18 Start Time 11:23 Sodium Chloride (Sodium Chloride 0.9%) 1,000 mls @ 999 mls/hr IV .Q1H1M STA Stop: 06/28/18 18:57 Last Admin: 06/28/18 18:32 Dose: 999 mls/hr eMAR Start Stop Document 06/28/18 18:32 [facility] [place] (Rec: 06/28/18 18:32 [facility] [place] [id number]) Intravenous Solution Start Date 06/28/18 Start Time 18:32 End Date 06/28/18 End time 19:33 Total Infusion Time 61 Ciprofloxacin (Cipro 400mg/200ml Dsw) 400 mg in 200 mls @ 133.3 mls/hr IVPB STAT STA PRN Reason: Protocol Stop: 06/28/18 23:17 Last Admin: 06/29/18 00:00 Dose: 133.3 mls/hr eMAR Start Stop Document 06/29/18 00:00 LAC (Rec: 06/29/18 01:34 [facility] [id number] Intravenous Solution Start Date 06/29/18 Start Time 00:01 Metronidazole (Flagyl) 500 mg in 100 mls @ 100 mls/hr IVPB STAT STA PRN Reason: Protocol Stop: 06/28/18 22:46 Last Admin: 06/28/18 23:00 Dose: 100 mls/hr eMAR Start Stop Document 06/28/18 23:00 LAC (Rec: 06/29/18 01:34 [facility]AC [facility] [id number] Intravenous Solution Start Date 06/29/18 Start Time 23:00 End Date 06/29/18 End time 00:01 Total Infusion Time -1379 Ciprofloxacin (Cipro 400mg/200ml Dsw) 400 mg in 200 mls @ 133.3 mls/hr IVPB Q12H ETHAN PRN Reason: Protocol Stop: 06/29/18 13:31 Last Admin: 06/29/18 14:44 Dose: 133.3 mls/hr eMAR Start Stop Document 06/29/18 14:44 CV (Rec: 06/29/18 14:44 CV [facility] [place] [id number]) Intravenous Solution Start Date 06/29/18 Start Time 14:44 Sodium Chloride (Sodium Chloride 0.9%) 500 mls @ 999 mls/hr IV .Q31M STA Stop: 06/29/18 03:01 Last Admin: 06/29/18 02:45 Dose: 999 mls/hr eMAR Start Stop Document 06/29/18 02:45 NECK PINNER (Rec: 06/29/18 02:45 NECK PINNER [facility] [place] [id number]) Intravenous Solution Start Date 06/29/18 Start Time 02:45 Sodium Chloride (Sodium Chloride 0.9%) 1,000 mls @ 100 mls/hr IV .Q10H ETHAN Last Admin: 06/29/18 10:24 Dose: 100 mls/hr eMAR Start Stop Document 06/29/18 10:24 CV (Rec: 06/29/18 10:24 CV [facility] [place] [id number]) Intravenous Solution Start Date 06/29/18 Start Time 10:24 Calcium Gluconate 1,000 mg/ (Sodium Chloride) 110 mls @ 110 mls/hr IVPB ONCE ONE Stop: 06/29/18 23:29 Last Admin: 06/29/18 23:04 Dose: 110 mls/hr eMAR Start Stop Document 06/29/18 23:04 KT (Rec: 06/29/18 23:05 KT [facility] [place] [id number]) Intravenous Solution Start Date 06/29/18 Start Time 23:05 End Date 06/30/18 End time 00:05 Total Infusion Time 60 Potassium Chloride (Potassium Chloride 10 Meq/100 Ml) 10 meq in 100 mls @ 50 mls/hr IVPB ONCE ONE Stop: 06/30/18 11:27 Last Admin: 06/30/18 10:14 Dose: 50 mls/hr eMAR Start Stop Document 06/30/18 10:14 ANTOALL (Rec: 06/30/18 10:14 ANTOALL [facility] [id number] Intravenous Solution Start Date 06/30/18 Start Time 10:14 End Date 06/30/18 End time 12:14 Total Infusion Time 120 Pantoprazole Sodium (Protonix Inj) 40 mg IVP STAT STA Stop: 06/29/18 00:01 Last Admin: 06/29/18 01:36 Dose: 40 mg IVP Administration Document 06/29/18 01:36 LAC (Rec: 06/29/18 01:36 LAC [facility] [id number] Charges for Administration # of IVP Administrations 1 Potassium Chloride (Potassium Chloride Oral Soln) 40 meq PO ONCE ONE Stop: 06/30/18 09:40 Last Admin: 06/30/18 10:13 Dose: Not Given Non-Admin Reason: NPO Potassium Chloride (Potassium Chloride Oral Soln) 40 meq PO Q4 ETHAN Stop: 07/01/18 16:01 Last Admin: 07/01/18 17:32 Dose: 40 meq - PA / JIGGER OPERATOR / Resident Statement MD/DO has reviewed & agrees with the documentation as recorded. MD/DO has examined the patient and agrees with the treatment plan. - Scribe Statement The provider has reviewed the documentation as recorded by the Scribe - Scribe Statement Regi Becker. All medical record entries made by the Scribe were at my direction and personally dictated by me. I have reviewed the chart and agree that the record accurately reflects my personal performance of the history, physical exam, medical decision making, and the department course for this patient. I have also personally directed, reviewed, and agree with the discharge instructions and disposition. (Bart Salazar) Disposition/Present on Arrival - Present on Arrival Any Indicators Present on Arrival: No History of DVT/PE: Yes History of Uncontrolled Diabetes: No Urinary Catheter: No History Surgical Site Infection Followin - Disposition Have Diagnosis and Disposition been Completed?: Yes Disposition Time: 20:08 Patient Plan: Admission, ICU - Disposition Diagnosis: GI bleed, Supratherapeutic international normalized ratio (INR), Hyponatremia, Chronic diarrhea, Hypotensive episode Disposition: HOSPITALIZED Patient Problems: Current Active Problems Problem Status Onset Chronic diarrhea Acute GI bleed Acute Hyponatremia Acute Hypotensive episode Acute Supratherapeutic international normalized ratio (INR) Acute Condition: GUARDED"
[2018-06-28] MEDS ORDERED: Sodium Chloride 0.9% 1,000 ML IV STA (17:57)
[2018-06-28 18:45] LABS: VENOUS BLOOD GAS BASE EXCESS -11.9 mmol/L (0.0-2.0); VENOUS BLOOD GAS PO2 54 mm/Hg (30-55); VENOUS BLOOD PH 7.21 (7.32-7.43)
[2018-06-28 18:50] LABS: BASO # 0.01 K/mm3 (0.0-2.0); BASO % 0.1 % (0.0-3.0); EOS % 0.1 % (1.5-5.0); GRAN # 6.01 (1.4-6.5); GRAN % 73.3 % (50.0-68.0); HEMOGLOBIN 9.6 g/dL (14.0-18.0); LYMPH # 1.4 (1.2-3.4); LYMPH % 16.9 % (22.0-35.0); MEAN CELL VOLUME 75.7 fl (80.0-105.0); MEAN CORPUSCULAR HEMOGLOBIN 25.4 pg (25.0-35.0); MEAN CORPUSCULAR HGB CONC 33.6 g/dl (31.0-37.0); MEAN PLATELET VOLUME 9.2 fl (7.0-11.0); MONO # 0.8 (0.1-0.6); MONO % 9.6 % (1.0-6.0); RBC 3.78 10^6/uL (3.5-6.1); RED CELL DISTRIBUTION WIDTH 15.3 % (11.5-14.5)
[2018-06-28 18:54] LABS: WHITE BLOOD COUNT 8.2 10^3/ul (4.5-11.0)
[2018-06-28 18:58] LABS: INR 3.36; PROTHROMBIN TIME 39.3 SECONDS (9.4-12.5)
[2018-06-28 19:11] LABS: B-TYPE NATRIURETIC PEPTIDE 350 pg/mL (0-450); TROPONIN I < 0.01 ng/mL
[2018-06-28 19:24] LABS: ALB/GLOB RATIO 0.7 (1.1-1.8); ALBUMIN 1.7 g/dL (3.0-4.8); ALT/SGPT 45 U/L (7-56); AST/SGOT 34 U/L (17-59); BLOOD UREA NITROGEN 29 mg/dL (7-21); CALCIUM 7.6 mg/dL (8.4-10.5); GFR NON-AFRICAN AMERICAN > 60; LIPASE 12 U/L (23-300)
[2018-06-28] MEDS ORDERED: Iohexol 350 MG/100 ML VIAL ONE (20:22)
--- NOTE | 2018-06-28 20:35 | CP.PCM.PCO ---
Additional Comments - Additional Comments Additional Comments: Patient presented to office for routine follow up accompanied by aide around 4.40pm. Aide reported him having diarrhea few times today and not feeling well. He had an episode on transport bus and also had few bouts of diarrhea in office. BP was checked few times it was 60 SBP. feeble pulse. Sister Iman was contacted twice, left voice message no response. Spoke to supervisor wet end of aide, informed about transfer to ED from office, he agreed with that. [facility] called. His Sister Iman was texting the aide to take Sean home instead to ED. I called her again and was able to connect. She refused Sean to be transferred to ED. I explained her the hypotension associated with diarrhea, dehydration and that it is a life threatening situation. She was adamant that he should be send home with aide. She also said that she will fire me if I will send him to ED. She had cancelled many of his office appointments in past. Patient does not have capacity to make decision because of mental retardation. Because of life threatening situation of circulatory collapse he was transferred to ED with home health aide via [facility]. Dr. Rey, his PCP was informed , she agreed with transfer to ED.
--- NOTE | 2018-06-28 20:53 | CARD ---
APPROVED REPORT Date of service: 06/28/2018 EKG Measurement Heart [id number] <Conclusion> Poor data quality, interpretation may be adversely affected Normal sinus rhythm Nonspecific ST and T wave abnormality Abnormal ECG
[2018-06-28] MEDS ORDERED: Ciprofloxacin 400mg/200ml D5W 400 MG/200 ML BAG IVPB STA (21:47)
[2018-06-28] MEDS ORDERED: metroNIDAZOLE IV 500 mg/100 ml 500 MG/100 ML BAG IVPB STA (21:47)
[2018-06-29 01:06] LABS: INR 2.93; PROTHROMBIN TIME 34.1 SECONDS (9.4-12.5)
[2018-06-29 01:10] LABS: HDL CHOLESTEROL 70 mg/dL (29-60)
[2018-06-29 01:14] LABS: IRON 20 ug/dL (45-180)
[2018-06-29 01:21] LABS: LDL CHOLESTEROL < 30 mg/dL (0-129)
[2018-06-29 01:23] LABS: % IRON SATURATION 11 % (20-55); TOTAL IRON BINDING CAPACITY 194 ug/dL (261-462)
[2018-06-29] MEDS ORDERED: Sodium Chloride 0.9% 500 ML IV STA (02:31)
[2018-06-29 02:39] VITALS: BMI 19.5
--- NOTE | 2018-06-29 03:17 | CP.PCM.CON ---
<Jae Denny - Last Filed: 06/29/18 03:23> History of Present Illness - History of Present Illness History of Present Illness: ICU consult note for Dr. Juarez Patient is a 48 M past medical history of mental retardation, DVT, PE, anemia, GI bleed presenting to ED for hypotension. 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 Originally patient's POA his siter was contacted who refused patient to be admitted to the ED. Upon being admitted patient was found to be hypotensive with several episodes of diarrhea from home and office visit as well as being hyponatremic. Patient endorses consuming copious amounts of water due to being thirsty as of late. Patient was given 250 ccs NS in the ED. As per nursing staff from day team when probe was introduced, probe revealed blood upon retraction. Upon being assessed patient' blood pressure was stable around 101/58. Review of Systems - Review of Systems Systems not reviewed;Unavailable: Uncooperative, Other (mental retardation) Past Patient History - Infectious Disease Hx of Infectious Diseases: None - Tetanus Immunizations Tetanus Immunization: Unknown - Past Social History Smoking Status: Never Smoked - CARDIAC Hx Cardiac Disorders: Yes - PULMONARY Hx Respiratory Disorders: Yes Other/Comment: aspiration pneumonia - NEUROLOGICAL Other/Comment: As per patients family member mental retardation. - HEENT Hx HEENT Problems: No - RENAL Hx Chronic Kidney Disease: No - ENDOCRINE/METABOLIC Hx Endocrine Disorders: No - HEMATOLOGICAL/ONCOLOGICAL Hx Blood Transfusions: No Hx Blood Transfusion Reaction: No - INTEGUMENTARY Hx Dermatological Problems: Yes Other/Comment: MULTIPLE SCARRING TO ABDOMINAL AREA FROM MULTIPLE ABDOMINAL SURGERIES - MUSCULOSKELETAL/RHEUMATOLOGICAL Hx Falls: Yes - GASTROINTESTINAL Hx Gastrointestinal Disorders: Yes (gastric outlet obstruction,paralytic ileus, gerd,gi bleed,ileostomy-reversal) - GENITOURINARY/GYNECOLOGICAL Hx Genitourinary Disorders: No - PSYCHIATRIC Hx Emotional Abuse: No Hx Physical Abuse: No Hx Substance Use: No - SURGICAL HISTORY Other/Comment: small bowel resection. inguinal hernia repair - ANESTHESIA Hx Anesthesia Reactions: No Hx Malignant Hyperthermia: No Meds Allergies/Adverse Reactions: Allergies Allergy/AdvReac Type Severity Reaction Status Date / Time No Known Allergies Allergy Verified 11/27/17 17:29 - Medications Medications: Current Medications Ergocalciferol (Drisdol 50,000 Intl Units Cap) 1 cap PO Q7D [facility] Folic Acid (Folic Acid) 1 mg PO DAILY [facility] Ciprofloxacin (Cipro 400mg/200ml Dsw) 400 mg in 200 mls @ 133.3 mls/hr IVPB Q12 [facility] PRN Reason: Protocol Stop: 06/29/18 11:31 Metronidazole (Flagyl) 500 mg in 100 mls @ 100 mls/hr IVPB Q8 [facility] PRN Reason: Protocol Mupirocin (Bactroban Ointment) 0 gm TOP BID [facility] Pantoprazole Sodium (Protonix Ec Tab) 40 mg PO 0600,1600 [facility] Physical Exam - Constitutional Appears: Non-toxic - Head Exam Head Exam: ATRAUMATIC, NORMAL INSPECTION, NORMOCEPHALIC - Eye Exam Eye Exam: Normal appearance - ENT Exam ENT Exam: Mucous Membranes Moist - Neck Exam Neck exam: Positive for: Normal Inspection - Respiratory Exam Respiratory Exam: Clear to Auscultation Bilateral, NORMAL BREATHING PATTERN. absent: Rhonchi, Wheezes - Cardiovascular Exam Cardiovascular Exam: REGULAR RHYTHM, +S1, +S2 - GI/Abdominal Exam GI & Abdominal Exam: Normal Bowel Sounds, Soft - Extremities Exam Extremities exam: Positive for: normal inspection - Back Exam Back exam: NORMAL INSPECTION - Neurological Exam Neurological exam: Alert, CN II-XII Intact, Oriented x3 - Psychiatric Exam Psychiatric exam: Agitated - Skin Skin Exam: Normal Color, Warm Results - Vital Signs Recent Vital Signs: Last Vital Signs Temp 97.5 F L 06/29/18 02:29 Pulse 87 06/29/18 02:29 Resp 18 06/29/18 02:29 BP 86/52 L 06/29/18 02:29 Pulse Ox 100 06/28/18 21:58 - Labs Result Diagrams: 06/28/18 18:41 06/29/18 00:50 Labs: Laboratory Results - last 24 hr 06/29/18 06/29/18 06/29/18 00:50 00:50 00:50 PT INR Potassium 3.9 Serum Osmolality 255 L Iron 20 L TIBC 194 L % Saturation 11 L Triglycerides 47 Cholesterol 103 L LDL Cholesterol Direct < 30 HDL Cholesterol 70 H 06/29/18 00:50 PT 34.1 H INR 2.93 Potassium Serum Osmolality Iron TIBC % Saturation Triglycerides Cholesterol LDL Cholesterol Direct HDL Cholesterol Assessment & Plan - Assessment and Plan (Free Text) Assessment: Patient is a 48 M past medical history of mental retardation, DVT, PE, anemia, GI bleed presenting to ED for hypotension and diarrhea found to be hyponatremic Plan: Hyponatremia -Continue with NS -Do not correct more than 8 within 24 hours -Serum Osm, Urine Osm, Urine electrolytes, Serum electrolytes -BMP q4h Diarrhea -Stool cultures -Fecal leukocytes -C diff -Ova an dparasites -FOBT Hypotension -Currently stable -Continue with fluids Anemia -Iron TIBC, Folate, B12, retic count, peripheral smear GI/DVT ppx: protonix, SCDs Disposition: Patient originally potential ICU consent however was downgraded since upon evaluation patient had stable vitals at patient's baseline <Nicolas Juarez - Last Filed: 06/29/18 06:39> Meds - Medications Medications: Current Medications Ergocalciferol (Drisdol 50,000 Intl Units Cap) 1 cap PO Q7D [facility] Folic Acid (Folic Acid) 1 mg PO DAILY [facility] Ciprofloxacin (Cipro 400mg/200ml Dsw) 400 mg in 200 mls @ 133.3 mls/hr IVPB Q12H [facility] PRN Reason: Protocol Stop: 06/29/18 13:31 Metronidazole (Flagyl) 500 mg in 100 mls @ 100 mls/hr IVPB Q8 [facility] PRN Reason: Protocol Last Admin: 06/29/18 05:48 Dose: 100 mls/hr Sodium Chloride (Sodium Chloride 0.9%) 1,000 mls @ 100 mls/hr IV .Q10H [facility] Mupirocin (Bactroban Ointment) 0 gm TOP BID [facility] Pantoprazole Sodium (Protonix Ec Tab) 40 mg PO 0600,1600 [facility] Last Admin: 06/29/18 05:49 Dose: 40 mg Results - Vital Signs Recent Vital Signs: Last Vital Signs Temp 97.5 F L 06/29/18 02:29 Pulse 92 H 06/29/18 06:03 Resp 18 06/29/18 02:29 BP 81/46 L 06/29/18 06:03 Pulse Ox 97 06/29/18 01:02 - Labs Result Diagrams: 06/28/18 18:41 06/29/18 00:50 Labs: Laboratory Results - last 24 hr 06/29/18 06/29/18 06/29/18 00:50 00:50 00:50 PT INR Potassium 3.9 Serum Osmolality 255 L Iron 20 L TIBC 194 L % Saturation 11 L Triglycerides 47 Cholesterol 103 L LDL Cholesterol Direct < 30 HDL Cholesterol 70 H 06/29/18 00:50 PT 34.1 H INR 2.93 Potassium Serum Osmolality Iron TIBC % Saturation Triglycerides Cholesterol LDL Cholesterol Direct HDL Cholesterol Attending/Attestation - Attestation I have personally seen and examined this patient.: Yes I have fully participated in the care of the patient.: Yes I have reviewed all pertinent clinical information: Yes Notes (Text): ICU consulted for hypovolemia and hyponatremia. Pt with acute on chronic diarrhea, responded to fluid resuscitation. Hypovolemic hyponatremia, c/w NS and monitor BMP to avoid over correction. Send urine lytes, serum and urine osmol. Pt currently hemodynamically stable and does not require ICU. Case was discussed with Dr Trejo (PMD), pt to be admitted to the floor under her service. Please reconsult ICU if needed. 06/29/18 06:33
[2018-06-29] MEDS ORDERED: Sodium Chloride 0.9% 1,000 ML IV SCH (03:46)
[2018-06-29] MEDS: metroNIDAZOLE IV 500 mg/100 ml 500 MG/100 ML BAG IVPB SCH ×3 (05:48→21:20)
[2018-06-29] MEDS: Pantoprazole 40 mg EC Tab PO SCH ×2 (05:49→17:03)
--- NOTE | 2018-06-29 06:25 | HP ---
date 06/28/18 CHIEF COMPLAINT: Diarrhea, low blood pressure. HISTORY OF PRESENT ILLNESS: Mr. Sean Dee, a 48-year-old male with past medical history of GI bleeding, anemia, shortness of breath, DVT, PE, came to the emergency room via EMS for low blood pressure, intractable diarrhea. 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 Murillo for a followup when his systolic blood pressure incidentally dropped to 60s when he gets up and appears to be pale for which EMS was called immediately. Upon EMS arrival, the patient's blood pressure was unchanged and was brought to the Emergency Room Department immediately for medical treatment. The patient's blood pressure upon arrival in the Emergency Department was 60/46, heart rate was 99. The patient was alert and oriented. The patient is a very poor historian. He is mentally challenged. Looks like he has abdominal pain that the patient has pointed out. Discussion done with Dr. Murillo and with the patient's sister, Iman called my office also. PAST MEDICAL HISTORY: As above. Aspiration pneumonia. Multiple scarring to the abdominal wall due to multiple surgeries by Dr. Andres Henson, gastric outlet obstruction, paralytic lesion, GERD, GI bleeding, ileostomy reversal, small bowel resection,inguinal hernia repair. FAMILY HISTORY: Not known because the patient was adopted. HABITS: Never smoked. No drugs. No ethanol. ALLERGIES: THE PATIENT IS NOT ALLERGIC WITH ANY MEDICATION. REVIEW OF SYSTEMS: The patient was seen and examined on the bedside, looking comfortable, is very poor historian. No fever. No chills. No coughing. Pointing out abdominal pain. Has diarrhea, no nausea or vomiting. No rash. No hematuria or hematochezia. PHYSICAL EXAMINATION: VITAL SIGNS: Temperature 97.3; pulse 99; respiratory rate 18; blood pressure 60/46, after IV fluid it is 100/45 and then is 112/86. HEENT: Head normocephalic, atraumatic. Eyes PERRLA. Extraocular muscles intact. Conjunctivae clear. Nose patent. Mucous membrane moist. NECK: Supple. No carotid bruit. No JVD or thyromegaly. CHEST: Bilaterally symmetrical. HEART: S1 and S2 positive. LUNGS: Clear to auscultation. ABDOMEN: Soft. Bowel sounds positive. No organomegaly. EXTREMITIES: No edema. No cyanosis. NEUROLOGICAL: The patient is awake and alert, but is confused. His baseline is the patient is not a good historian. LABORATORY DATA: White blood cells 8.6, hemoglobin 9.6, hematocrit , platelets 448. Sodium 120, potassium 3.6, BUN 29, creatinine 1.1, glucose 97. ASSESSMENT AND PLAN: Mr. Sean Dee, 48-year-old male with anemia, hyponatremia, hypochloremia, looks like dehydrated. BUN is high. Came with intractable diarrhea, low blood pressure. The patient has history of gastrointestinal bleeding, supratherapeutic international normalization ratio, chronic diarrhea, hypertensive episode. The patient is mentally challenged. Has multiple abdominal surgeries, history of small bowel obstruction, deep venous thrombosis, pulmonary embolism. Now, we admitted the patient. Ciprofloxacin given in the ER. Metronidazole is given to rule out diverticulitis. Normal saline was given. We have called consult for gastrointestinal. Deep venous thrombosis prophylaxis. Discussion done with Dr. Murillo and the patient's sister called my office. Meanwhile, continue present treatment, repeat labs. We will follow up. Meme Rey MD KAVYA
[2018-06-29 07:27] LABS: HEMOGLOBIN 8.1 g/dL (14.0-18.0); MEAN CELL VOLUME 75.2 fl (80.0-105.0); MEAN CORPUSCULAR HEMOGLOBIN 25.5 pg (25.0-35.0); MEAN CORPUSCULAR HGB CONC 33.9 g/dl (31.0-37.0); MEAN PLATELET VOLUME 8.8 fl (7.0-11.0); RBC 3.18 10^6/uL (3.5-6.1); RED CELL DISTRIBUTION WIDTH 15.3 % (11.5-14.5); WHITE BLOOD COUNT 3.8 10^3/ul (4.5-11.0)
[2018-06-29 07:49] LABS: BLOOD UREA NITROGEN 21 mg/dL (7-21); CALCIUM 6.8 mg/dL (8.4-10.5); GFR NON-AFRICAN AMERICAN > 60
--- NOTE | 2018-06-29 09:27 | RAD ---
Date of service: 06/28/2018 HISTORY: weakness COMPARISON: 12/11/2017 FINDINGS: LUNGS: No active pulmonary disease. PLEURA: No significant pleural effusion identified, no pneumothorax apparent. CARDIOVASCULAR: Normal. OSSEOUS STRUCTURES: No significant abnormalities. VISUALIZED UPPER ABDOMEN: Normal. OTHER FINDINGS: None. IMPRESSION: No active disease.
[2018-06-29] MEDS: Mupirocin 2% Ointment 15 GM TUBE TOP SCH ×2 (10:24→17:03)
[2018-06-29] MEDS: Ergocalciferol 50,000 Intl Units Cap PO SCH (10:24)
[2018-06-29] MEDS ORDERED: Ciprofloxacin 400mg/200ml D5W 400 MG/200 ML BAG IVPB SCH (12:00)
--- NOTE | 2018-06-29 12:47 | CT ---
Date of service: 06/28/2018 PROCEDURE: CT Abdomen and Pelvis without intravenous contrast HISTORY: abdominal pain/diarrhea COMPARISON: None. TECHNIQUE: Without contrast.. Contrast dose: Radiation dose: Total exam DLP = 247 mGy-cm. This CT exam was performed using one or more of the following dose reduction techniques: Automated exposure control, adjustment of the mA and/or kV according to patient size, and/or use of iterative reconstruction technique. FINDINGS: LOWER THORAX: Unremarkable. LIVER: Unremarkable. No gross lesion or ductal dilatation. GALLBLADDER AND BILE DUCTS: Unremarkable. PANCREAS: Unremarkable. No gross lesion or ductal dilatation. SPLEEN: Unremarkable. ADRENALS: Unremarkable. No mass. KIDNEYS AND URETERS: Unremarkable. No hydronephrosis. No solid mass. VASCULATURE: Unremarkable. No aortic aneurysm. 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 Caval filters are seen on both sides of the aorta. BOWEL: There is fluid throughout the colon. There is a moderate amount of stool in the rectum. There is no evidence of small bowel obstruction. A suture line is seen at the junction of the sigmoid and rectum. There is narrowing of the colon in this region. APPENDIX: Unremarkable. Normal appendix. PERITONEUM: Unremarkable. No free fluid. No free air. LYMPH NODES: Unremarkable. No enlarged lymph nodes. BLADDER: Unremarkable. REPRODUCTIVE: Unremarkable. BONES: No acute fracture. OTHER FINDINGS: The report concurs with the preliminary [facility] report IMPRESSION: There is fluid throughout the colon. There is a moderate amount of stool in the rectum. There is no evidence of small bowel obstruction. A suture line is seen at the junction of the sigmoid and rectum. There is narrowing of the colon in this region
[2018-06-29 13:38] LABS: FOLATE > 20.0 ng/mL
[2018-06-29 16:54] LABS: EOS % 0.5 % (1.5-5.0); GRAN # 2.69 (1.4-6.5); HEMOGLOBIN 7.5 g/dL (14.0-18.0); LYMPH % 23.9 % (22.0-35.0); MEAN CELL VOLUME 76.6 fl (80.0-105.0); MEAN CORPUSCULAR HEMOGLOBIN 25.8 pg (25.0-35.0); MEAN CORPUSCULAR HGB CONC 33.6 g/dl (31.0-37.0); MEAN PLATELET VOLUME 9.3 fl (7.0-11.0); MONO # 0.4 (0.1-0.6); MONO % 10.6 % (1.0-6.0); RBC 2.91 10^6/uL (3.5-6.1); RED CELL DISTRIBUTION WIDTH 15.7 % (11.5-14.5); WHITE BLOOD COUNT 4.1 10^3/ul (4.5-11.0)
--- NOTE | 2018-06-29 17:26 | CP.PCM.CON ---
<Demar Maier - Last Filed: 06/29/18 17:34> History of Present Illness - History of Present Illness History of Present Illness: GI Consult Note for Dr. Davies's Service - [place] PGY2 Reason for Consult: Chronic Diarrhea/Abdominal Pain Mr. Dee is a 48 year old male with a past medical history significant for recent DVT (08/2017) on Coumadin, GERD with perforated ulcers, multiple episodes of SBO, chronic anemia, and developmental delay who presented from his hematologists office after he was found to be hypotensive with SBP in 60's. GI was consulted for chronic diarrhea and abdominal pain. Patient is alert and oriented to person and place only. HPI and ROS information obtained from patient interview supplemented with chart review. Patient reports that starting 24 hours ago he has been experiencing episodes of non-bloody watery diarrhea, including an episode on his transportation to the cannery worker's office. He has had multiple episodes of this in the past. He reports having soup for lunch yesterday and currently denies any abdominal pain. He also denies any other complaints at this time including changes in diet, recent travel, sick contacts , recent illness, fevers, chills, headache, chest pain, SOB, abdominal pain, N/V /C, hematemesis, melena, changes in urine output, or any skin changes. Of note, patient had a positive FOBT done in the ED. PMH: As stated above PSH: Ileocolic anastamosis, partial colectomy with subsequent reversal, partial gastrectomy (Billroth Type 2 GJ), multiple small bowel decompressions Family History: Denies Social History: Denies any tobacco, alcohol or illicit drug use; Lives at home with sister and ultrasound manager Allergies: NKDA Home Medications: As per [facility] Endo: EGD (12/2017): Billroth Type 2 GJ; Otherwise unremarkable Flexible Sigmoidoscopy (12/2017): Erythema with erosive ulcerations in the area adjacent to IC anastamosis PMD: Dr. Rey Review of Systems - Review of Systems Review of Systems: As stated in HPI, otherwise negative Past Patient History - Infectious Disease Hx of Infectious Diseases: None - Tetanus Immunizations Tetanus Immunization: Unknown - Past Social History Smoking Status: Never Smoked - CARDIAC Hx Cardiac Disorders: Yes - PULMONARY Hx Respiratory Disorders: Yes Other/Comment: aspiration pneumonia - NEUROLOGICAL Other/Comment: As per patients family member mental retardation. - HEENT Hx HEENT Problems: No - RENAL Hx Chronic Kidney Disease: No - ENDOCRINE/METABOLIC Hx Endocrine Disorders: No - HEMATOLOGICAL/ONCOLOGICAL Hx Anemia: Yes - INTEGUMENTARY Hx Dermatological Problems: Yes Other/Comment: MULTIPLE SCARRING TO ABDOMINAL AREA FROM MULTIPLE ABDOMINAL SURGERIES - MUSCULOSKELETAL/RHEUMATOLOGICAL Hx Falls: Yes - GASTROINTESTINAL Hx Gastrointestinal Disorders: Yes (gastric outlet obstruction,paralytic ileus, gerd,gi bleed,ileostomy-reversal) - GENITOURINARY/GYNECOLOGICAL Hx Genitourinary Disorders: No - PSYCHIATRIC Hx Emotional Abuse: No Hx Physical Abuse: No - SURGICAL HISTORY Other/Comment: small bowel resection. inguinal hernia repair - ANESTHESIA Hx Anesthesia Reactions: No Hx Malignant Hyperthermia: No Meds Allergies/Adverse Reactions: Allergies Allergy/AdvReac Type Severity Reaction Status Date / Time No Known Allergies Allergy Verified 11/27/17 17:29 - Medications Medications: Current Medications Calcium Carbonate (Caltrate) 600 mg PO DAILY [facility] [place] Last Admin: 06/29/18 10:24 Dose: 600 mg Ergocalciferol (Drisdol 50,000 Intl Units Cap) 1 cap PO Q7D [facility] [place] Last Admin: 06/29/18 10:24 Dose: 1 cap Folic Acid (Folic Acid) 1 mg PO DAILY [facility] [place] Last Admin: 06/29/18 10:23 Dose: 1 mg Metronidazole (Flagyl) 500 mg in 100 mls @ 100 mls/hr IVPB Q8 [facility] [place] PRN Reason: Protocol Last Admin: 06/29/18 14:42 Dose: 100 mls/hr Sodium Chloride (Sodium Chloride 0.9%) 1,000 mls @ 100 mls/hr IV .Q10H [facility] [place] Last Admin: 06/29/18 10:24 Dose: 100 mls/hr Mupirocin (Bactroban Ointment) 0 gm TOP BID [facility] [place] Last Admin: 06/29/18 17:03 Dose: 1 applic Pantoprazole Sodium (Protonix Ec Tab) 40 mg PO 0600,1600 [facility] [place] Last Admin: 06/29/18 17:03 Dose: 40 mg Physical Exam - Constitutional Appears: Non-toxic, No Acute Distress, Unkempt - Head Exam Head Exam: ATRAUMATIC, NORMOCEPHALIC - Eye Exam Eye Exam: EOMI - Neck Exam Neck exam: Positive for: Full Rom - Respiratory Exam Respiratory Exam: NORMAL BREATHING PATTERN. absent: Accessory Muscle Use, Respiratory Distress - Cardiovascular Exam Cardiovascular Exam: +S1, +S2 - GI/Abdominal Exam GI & Abdominal Exam: Normal Bowel Sounds, Soft. absent: Bruit, Diminished Bowel Sounds, Distended, Firm, Guarding, Hernia, Hyperactive Bowel Sounds, Hypoactive Bowel Sounds, Mass, Organomegaly, Pulsatile Mass, Rebound, Rigid, Tenderness Additional comments: Multiple abdominal wall scars noted - Rectal Exam Rectal Exam: Deferred - Neurological Exam Neurological exam: Alert - Skin Skin Exam: Dry, Intact, Normal Color, Warm Results - Vital Signs Recent Vital Signs: Last Vital Signs Temp 98 F 06/29/18 14:00 Pulse 94 H 06/29/18 14:00 Resp 20 06/29/18 14:00 BP 104/60 06/29/18 14:00 Pulse Ox 99 06/29/18 14:00 - Labs Result Diagrams: 06/29/18 16:45 06/29/18 07:00 Labs: Laboratory Results - last 24 hr 06/29/18 06/29/18 06/29/18 00:50 00:50 00:50 WBC RBC Hgb Hct MCV MCH MCHC RDW Plt Count MPV Gran % Lymph % (Auto) [place] % (Auto) Eos % (Auto) Baso % (Auto) Gran # Lymph # (Auto) [place] # (Auto) Eos # (Auto) Baso # (Auto) PT INR Sodium Potassium 3.9 Chloride Carbon Dioxide Anion Gap BUN Creatinine Est GFR ( Amer) Est GFR (Non-Af Amer) Random Glucose Hemoglobin A1c Serum Osmolality 255 L Calcium Iron 20 L TIBC 194 L % Saturation 11 L Triglycerides 47 Cholesterol 103 L LDL Cholesterol Direct < 30 HDL Cholesterol 70 H Vitamin B12 > 1000 H Folate > 20.0 TSH 3rd Generation Stool Occult Blood Stool Leukocytes, Qual 06/29/18 06/29/18 06/29/18 00:50 07:00 07:00 WBC 3.8 L D RBC 3.18 L Hgb 8.1 L Hct 23.9 L MCV 75.2 L MCH 25.5 MCHC 33.9 RDW 15.3 H Plt Count 339 MPV 8.8 Gran % Lymph % (Auto) [place] % (Auto) Eos % (Auto) Baso % (Auto) Gran # Lymph # (Auto) [place] # (Auto) Eos # (Auto) Baso # (Auto) PT 34.1 H INR 2.93 Sodium Potassium Chloride Carbon Dioxide Anion Gap BUN Creatinine Est GFR ( Amer) Est GFR (Non-Af Amer) Random Glucose Hemoglobin A1c 4.1 L D Serum Osmolality Calcium Iron TIBC % Saturation Triglycerides Cholesterol LDL Cholesterol Direct HDL Cholesterol Vitamin B12 Folate TSH 3rd Generation Stool Occult Blood Stool Leukocytes, Qual 06/29/18 06/29/18 06/29/18 07:00 07:00 07:00 WBC RBC Hgb Hct MCV MCH MCHC RDW Plt Count MPV Gran % Lymph % (Auto) [place] % (Auto) Eos % (Auto) Baso % (Auto) Gran # Lymph # (Auto) [place] # (Auto) Eos # (Auto) Baso # (Auto) PT INR Sodium 121 L Potassium 3.7 Chloride 103 Carbon Dioxide 13 L Anion Gap 8 L BUN 21 Creatinine 0.7 L Est GFR ( Amer) > 60 Est GFR (Non-Af Amer) > 60 Random Glucose 67 L Hemoglobin A1c Serum Osmolality Calcium 6.8 L* Iron TIBC % Saturation Triglycerides Cholesterol LDL Cholesterol Direct HDL Cholesterol Vitamin B12 Folate TSH 3rd Generation 2.78 Stool Occult Blood Stool Leukocytes, Qual Negative 06/29/18 06/29/18 07:00 16:45 WBC 4.1 L RBC 2.91 L Hgb 7.5 L Hct 22.3 L MCV 76.6 L MCH 25.8 MCHC 33.6 RDW 15.7 H Plt Count 311 MPV 9.3 Gran % 65.0 Lymph % (Auto) 23.9 [place] % (Auto) 10.6 H Eos % (Auto) 0.5 L Baso % (Auto) 0.0 Gran # 2.69 Lymph # (Auto) 1.0 L [place] # (Auto) 0.4 Eos # (Auto) 0.0 Baso # (Auto) 0.00 PT INR Sodium Potassium Chloride Carbon Dioxide Anion Gap BUN Creatinine Est GFR ( Amer) Est GFR (Non-Af Amer) Random Glucose Hemoglobin A1c Serum Osmolality Calcium Iron TIBC % Saturation Triglycerides Cholesterol LDL Cholesterol Direct HDL Cholesterol Vitamin B12 Folate TSH 3rd Generation Stool Occult Blood Positive H Stool Leukocytes, Qual Assessment & Plan - Assessment and Plan (Free Text) Assessment: 48 year old male with a past medical history significant for recent DVT (08/2017 ) on Coumadin, GERD with perforated ulcers, multiple episodes of SBO, chronic anemia, and developmental delay who presented from his hematologists office after he was found to be hypotensive with SBP in 60's. GI was consulted for chronic diarrhea and abdominal pain. Plan: -CT Abdomen/Pelvis showed fluid throughout the colon, a moderate amount of stool in the rectum, no evidence of small bowel obstruction and a suture line seen at the junction of the sigmoid and rectum with narrowing of the colon in this region -Stool culture and stool electrolytes pending -Stool leukocytes negative -H/H currently downtrending at 7.5 (9.6 on admission) -INR currently 2.93 (on Coumadin); Hold AC -Clear Liquid Diet tonight and NPO except medications past midnight -Continue PPI BID GI Disposition: No signs of major bleeding at this time. Will continue to monitor H/H. Patient will be taken for flexible sigmoidoscopy tomorrow (06/30). Patient seen and case discussed with attending, Dr. Davies. - Date & Time Date: 06/29/18 Time: 17:26 <Cristiane Davies V - Last Filed: 06/29/18 21:59> Meds - Medications Medications: Current Medications Calcium Carbonate (Caltrate) 600 mg PO DAILY [facility] [place] Last Admin: 06/29/18 10:24 Dose: 600 mg Ergocalciferol (Drisdol 50,000 Intl Units Cap) 1 cap PO Q7D [facility] [place] Last Admin: 06/29/18 10:24 Dose: 1 cap Folic Acid (Folic Acid) 1 mg PO DAILY [facility] [place] Last Admin: 06/29/18 10:23 Dose: 1 mg Metronidazole (Flagyl) 500 mg in 100 mls @ 100 mls/hr IVPB Q8 [facility] [place] PRN Reason: Protocol Last Admin: 06/29/18 21:20 Dose: 100 mls/hr Sodium Chloride (Sodium Chloride 0.9%) 1,000 mls @ 100 mls/hr IV .Q10H [facility] [place] Last Admin: 06/29/18 10:24 Dose: 100 mls/hr Mupirocin (Bactroban Ointment) 0 gm TOP BID [facility] [place] Last Admin: 06/29/18 17:03 Dose: 1 applic Pantoprazole Sodium (Protonix Ec Tab) 40 mg PO 0600,1600 [facility] [place] Last Admin: 06/29/18 17:03 Dose: 40 mg Results - Vital Signs Recent Vital Signs: Last Vital Signs Temp 98 F 06/29/18 14:00 Pulse 94 H 06/29/18 14:00 Resp 20 06/29/18 14:00 BP 104/60 06/29/18 14:00 Pulse Ox 99 06/29/18 14:00 - Labs Result Diagrams: 06/29/18 16:45 06/29/18 21:32 Labs: Laboratory Results - last 24 hr 06/29/18 06/29/18 06/29/18 00:50 00:50 00:50 WBC RBC Hgb Hct MCV MCH MCHC RDW Plt Count MPV Gran % Lymph % (Auto) [place] % (Auto) Eos % (Auto) Baso % (Auto) Gran # Lymph # (Auto) [place] # (Auto) Eos # (Auto) Baso # (Auto) PT INR Sodium Potassium 3.9 Chloride Carbon Dioxide Anion Gap BUN Creatinine Est GFR ( Amer) Est GFR (Non-Af Amer) Random Glucose Hemoglobin A1c Serum Osmolality 255 L Calcium Iron 20 L TIBC 194 L % Saturation 11 L Triglycerides 47 Cholesterol 103 L LDL Cholesterol Direct < 30 HDL Cholesterol 70 H Vitamin B12 > 1000 H Folate > 20.0 TSH 3rd Generation Stool Occult Blood Stool Leukocytes, Qual 06/29/18 06/29/18 06/29/18 00:50 07:00 07:00 WBC 3.8 L D RBC 3.18 L Hgb 8.1 L Hct 23.9 L MCV 75.2 L MCH 25.5 MCHC 33.9 RDW 15.3 H Plt Count 339 MPV 8.8 Gran % Lymph % (Auto) [place] % (Auto) Eos % (Auto) Baso % (Auto) Gran # Lymph # (Auto) [place] # (Auto) Eos # (Auto) Baso # (Auto) PT 34.1 H INR 2.93 Sodium Potassium Chloride Carbon Dioxide Anion Gap BUN Creatinine Est GFR ( Amer) Est GFR (Non-Af Amer) Random Glucose Hemoglobin A1c 4.1 L D Serum Osmolality Calcium Iron TIBC % Saturation Triglycerides Cholesterol LDL Cholesterol Direct HDL Cholesterol Vitamin B12 Folate TSH 3rd Generation Stool Occult Blood Stool Leukocytes, Qual 06/29/18 06/29/18 06/29/18 07:00 07:00 07:00 WBC RBC Hgb Hct MCV MCH MCHC RDW Plt Count MPV Gran % Lymph % (Auto) [place] % (Auto) Eos % (Auto) Baso % (Auto) Gran # Lymph # (Auto) [place] # (Auto) Eos # (Auto) Baso # (Auto) PT INR Sodium 121 L Potassium 3.7 Chloride 103 Carbon Dioxide 13 L Anion Gap 8 L BUN 21 Creatinine 0.7 L Est GFR ( Amer) > 60 Est GFR (Non-Af Amer) > 60 Random Glucose 67 L Hemoglobin A1c Serum Osmolality Calcium 6.8 L* Iron TIBC % Saturation Triglycerides Cholesterol LDL Cholesterol Direct HDL Cholesterol Vitamin B12 Folate TSH 3rd Generation 2.78 Stool Occult Blood Stool Leukocytes, Qual Negative 06/29/18 06/29/18 06/29/18 07:00 16:45 17:15 WBC 4.1 L RBC 2.91 L Hgb 7.5 L Hct 22.3 L MCV 76.6 L MCH 25.8 MCHC 33.6 RDW 15.7 H Plt Count 311 MPV 9.3 Gran % 65.0 Lymph % (Auto) 23.9 [place] % (Auto) 10.6 H Eos % (Auto) 0.5 L Baso % (Auto) 0.0 Gran # 2.69 Lymph # (Auto) 1.0 L [place] # (Auto) 0.4 Eos # (Auto) 0.0 Baso # (Auto) 0.00 PT INR Sodium 122 L Potassium 3.5 L Chloride 104 Carbon Dioxide 14 L Anion Gap 8 L BUN 18 Creatinine 0.7 L Est GFR ( Amer) > 60 Est GFR (Non-Af Amer) > 60 Random Glucose 103 Hemoglobin A1c Serum Osmolality Calcium 6.5 L* Iron TIBC % Saturation Triglycerides Cholesterol LDL Cholesterol Direct HDL Cholesterol Vitamin B12 Folate TSH 3rd Generation Stool Occult Blood Positive H Stool Leukocytes, Qual 06/29/18 21:32 WBC RBC Hgb Hct MCV MCH MCHC RDW Plt Count MPV Gran % Lymph % (Auto) [place] % (Auto) Eos % (Auto) Baso % (Auto) Gran # Lymph # (Auto) [place] # (Auto) Eos # (Auto) Baso # (Auto) PT INR Sodium 120 L Potassium 3.8 Chloride 104 Carbon Dioxide 14 L Anion Gap 6 L BUN 15 Creatinine 0.6 L Est GFR ( Amer) > 60 Est GFR (Non-Af Amer) > 60 Random Glucose 71 Hemoglobin A1c Serum Osmolality Calcium 6.6 L* Iron TIBC % Saturation Triglycerides Cholesterol LDL Cholesterol Direct HDL Cholesterol Vitamin B12 Folate TSH 3rd Generation Stool Occult Blood Stool Leukocytes, Qual Attending/Attestation - Attestation I have personally seen and examined this patient.: Yes I have fully participated in the care of the patient.: Yes I have reviewed all pertinent clinical information: Yes Notes (Text): This is an addendum to GI consult report dictated by the Inventory Manager.The patient was seen and evaluated earlier. Medical records, lab studies, imagings were reviewed. Last 24 hours events reviewed. Agreed with the above treatment plan as outlined in Inventory Manager 's notes with the addition of the following This patient is well known to our service History of Down's syndrome Status post partial gastrectomy Status post subtotal colectomy History of colonic stricture now patient has significant anemia Patient is being followed by cannery worker Would consider FLEXSIG Will discuss with Dr Murillo and Dr Rey 06/29/18 21:56
[2018-06-29 17:45] LABS: BLOOD UREA NITROGEN 18 mg/dL (7-21); CALCIUM 6.5 mg/dL (8.4-10.5); GFR NON-AFRICAN AMERICAN > 60
[2018-06-29 21:54] LABS: BLOOD UREA NITROGEN 15 mg/dL (7-21); CALCIUM 6.6 mg/dL (8.4-10.5); GFR NON-AFRICAN AMERICAN > 60
[2018-06-29] MEDS ORDERED: Calcium Chloride 1000 mg/10 ml Syringe IV ONE (22:18)
--- NOTE | 2018-06-30 02:34 | PN ---
DATE: 06/29/2018 SUBJECTIVE: The patient is a 48-year-old male. The patient was seen and examined on 06/29/2018, looking comfortable. No nausea, vomiting, or diarrhea. No hematuria or hematochezia. No headache. No dizziness. The patient is mentally challenged. He is not a good historian, but looks like he do not have fever or chills. PHYSICAL EXAMINATION: VITAL SIGNS: Temperature 98, pulse 94, respiratory rate 20, blood pressure 104/60, pulse oximetry 99. HEENT: Head is normocephalic and atraumatic. Eyes; PERRLA. Extraocular muscles are intact. Conjunctivae are clear. Nose is patent. Mucous membranes are moist. NECK: Supple. No carotid bruits, JVD, or thyromegaly. CHEST: Bilaterally symmetrical. HEART: S1 and S2 positive. LUNGS: Clear to auscultation. ABDOMEN: Soft. Bowel sounds present. No organomegaly. EXTREMITIES: No edema. No cyanosis. NEUROLOGIC: The patient is awake and alert. Moving all four extremities. No focal deficits. LABORATORY DATA: White blood cell is 4.1, hemoglobin 7.5, hematocrit noted platelets noted . Sodium 120, potassium 3.8, BUN 15, creatinine 0.6. Calcium 6.8, 6.6, 6.5. Iron 20. ASSESSMENT AND PLAN: Mr. Sean Dee is a 48-year-old male with leukopenia, severe anemia, hyponatremia, history of hypokalemia, hypocalcemia, iron deficiency. Stool occult is positive. CAT scan of abdomen and pelvis done, showed fluid throughout the colon, there is moderate amount of stool in the rectum and there is no evidence of small bowel obstruction. A stricture line is seen at the junction of the sigmoid and rectum, there is narrowing of the colon in this region. The patient has history of deep venous thrombosis, on Coumadin; history of perforated ulcers; multiple episodes of small bowel obstruction; chronic anemia; developmental delay; history of hypotension; dehydration; and history of diarrhea, acute on chronic. Now getting IV fluids. There were multiple episodes of diarrhea in the past. CT abdomen and pelvis reviewed by me. The patient is on clear liquid diet. Continue PPI b.i.d. Continue monitoring the H and H. The patient will go for flexible sigmoidoscopy tomorrow. Appreciated Dr. Davies's input. GI and DVT prophylaxis. The patient is status post gastrectomy, subtotal colectomy, history of colonic stricture. We will follow up. Meme Rey MD MTDD
[2018-06-30] MEDS: metroNIDAZOLE IV 500 mg/100 ml 500 MG/100 ML BAG IVPB SCH ×3 (06:02→23:28)
[2018-06-30] MEDS: Pantoprazole 40 mg EC Tab PO SCH ×2 (06:03→17:11)
[2018-06-30 07:08] LABS: HEMOGLOBIN 7.3 g/dL (14.0-18.0); MEAN CELL VOLUME 76.7 fl (80.0-105.0); MEAN CORPUSCULAR HGB CONC 32.6 g/dl (31.0-37.0); MEAN PLATELET VOLUME 8.6 fl (7.0-11.0); RBC 2.92 10^6/uL (3.5-6.1); RED CELL DISTRIBUTION WIDTH 15.6 % (11.5-14.5); WHITE BLOOD COUNT 4.1 10^3/ul (4.5-11.0)
[2018-06-30 07:22] LABS: BLOOD UREA NITROGEN 12 mg/dL (7-21); CALCIUM 6.8 mg/dL (8.4-10.5); GFR NON-AFRICAN AMERICAN > 60
[2018-06-30] MEDS ORDERED: Potassium Chloride 40 mEq/30 ml LIQ UD PO ONE (09:39)
--- NOTE | 2018-06-30 10:04 | US ---
HISTORY: Leg pain and swelling. Evaluate for DVT PHYSICIAN(S): Juan Easley MD. TECHNIQUE: Duplex sonography and color-flow Doppler with graded compression were used to evaluate the deep venous systems of both lower extremities. FINDINGS: Post lytic changes are once again seen in the right common femoral vein, femoral vein, and popliteal vein. No acute DVT is appreciated. There is no sonographic evidence for deep venous thrombosis the visualized segments of left lower extra IMPRESSION: Post-phlebitic changes in the right common femoral vein, femoral vein, and popliteal vein. No acute DVT is appreciated
[2018-06-30] MEDS: Mupirocin 2% Ointment 15 GM TUBE TOP SCH ×2 (10:12→17:12)
--- NOTE | 2018-06-30 11:12 | CP.PCM.PN ---
<Demar Maier - Last Filed: 06/30/18 16:22> Subjective - Date & Time of Evaluation Date of Evaluation: 06/30/18 Time of Evaluation: 11:12 - Subjective Subjective: GI Progress Note for Dr. Davies's Service- [place], PGY2 Patient seen and assessed at bedside. No acute events overnight noted. Patient reports that he is feeling well this AM and offers no complaints. Patient otherwise currently denies any fevers, chills, chest pain, SOB, abdominal pain, N/V/D/C, changes in urine output or any skin changes. Objective - Vital Signs/Intake and Output Vital Signs (last 24 hours): Temp Pulse Resp BP Pulse Ox 97.8 F 92 H 18 93/58 L 100 06/30/18 06:00 06/30/18 06:00 06/30/18 06:00 06/30/18 06:00 06/30/18 06:00 Intake and Output: 06/30/18 06/30/18 06:59 18:59 Intake Total 620 Output Total 1400 Balance 620 -1400 - Medications Medications: Current Medications Calcium Carbonate (Caltrate) 600 mg PO DAILY [facility] Last Admin: 06/30/18 10:11 Dose: Not Given Ergocalciferol (Drisdol 50,000 Intl Units Cap) 1 cap PO Q7D [facility] Last Admin: 06/29/18 10:24 Dose: 1 cap Folic Acid (Folic Acid) 1 mg PO DAILY [facility] Last Admin: 06/30/18 10:11 Dose: Not Given Metronidazole (Flagyl) 500 mg in 100 mls @ 100 mls/hr IVPB Q8 [facility] PRN Reason: Protocol Last Admin: 06/30/18 06:02 Dose: 100 mls/hr Sodium Chloride (Sodium Chloride 0.9%) 1,000 mls @ 100 mls/hr IV .Q10H [facility] Last Admin: 06/29/18 10:24 Dose: 100 mls/hr Potassium Chloride (Potassium Chloride 10 Meq/100 Ml) 10 meq in 100 mls @ 50 mls/hr IVPB ONCE ONE Stop: 06/30/18 11:27 Last Admin: 06/30/18 10:14 Dose: 50 mls/hr Mupirocin (Bactroban Ointment) 0 gm TOP BID [facility] Last Admin: 06/30/18 10:12 Dose: 1 applic Pantoprazole Sodium (Protonix Ec Tab) 40 mg PO 0600,1600 [facility] Last Admin: 06/30/18 06:03 Dose: 40 mg - Labs Labs: 06/30/18 06:30 06/30/18 06:30 PT 34.1 SECONDS (9.4-12.5) H 06/29/18 00:50 INR 2.93 06/29/18 00:50 APTT 43.0 Seconds (25.1-36.5) H 06/28/18 18:41 - Constitutional Appears: Non-toxic, No Acute Distress - Head Exam Head Exam: ATRAUMATIC, NORMOCEPHALIC - Eye Exam Eye Exam: EOMI - Neck Exam Neck Exam: Full ROM - Respiratory Exam Respiratory Exam: NORMAL BREATHING PATTERN. absent: Accessory Muscle Use, Respiratory Distress - Cardiovascular Exam Cardiovascular Exam: +S1, +S2 - GI/Abdominal Exam GI & Abdominal Exam: Soft, Normal Bowel Sounds. absent: Bruit, Distended, Firm , Guarding, Rigid, Tenderness, Diminished Bowel Sounds, Hernia, Hyperactive Bowel Sounds, Hypoactive Bowel Sounds, Organomegaly, Pulsatile Mass, Rebound, Mass - Rectal Exam Rectal Exam: Deferred - Neurological Exam Neurological Exam: Alert, Awake - Skin Skin Exam: Dry, Intact, Normal Color, Warm Assessment and Plan - Assessment and Plan (Free Text) Assessment: 48 year old male with a past medical history significant for recent DVT (08/2017 ) on Coumadin, GERD with perforated ulcers, multiple episodes of SBO, chronic anemia, and developmental delay who presented from his hematologists office after he was found to be hypotensive with SBP in 60's. GI was consulted for chronic diarrhea and abdominal pain. Plan: -CT Abdomen/Pelvis showed fluid throughout the colon, a moderate amount of stool in the rectum, no evidence of small bowel obstruction and a suture line seen at the junction of the sigmoid and rectum with narrowing of the colon in this region -Stool culture and stool electrolytes pending -Stool leukocytes and Stool Ova/Parasites negative -H/H currently downtrending at 7.3 (9.6 on admission) -Continue trending with serial CBC's -INR currently 2.12 (on Coumadin); Hold AC -Clear Liquid Diet; NPO Diet scheduled after midnight -Continue PPI BID GI Disposition: Patient will be taken for flexible sigmoidoscopy once hyponatremia is corrected and sodium above 130 (currently 123). Made NPO after midnight should he correct his hyponatremia by tomorrow morning. If this has not resolved, patient can resume clear liquid diet tomorrow and until flexible sigmoidoscopy is done. Patient seen and case discussed with attending, Dr. Davies. <Cristiane Davies V - Last Filed: 07/01/18 00:30> Objective - Vital Signs/Intake and Output Vital Signs (last 24 hours): Temp Pulse Resp BP Pulse Ox 97.5 F L 75 18 93/53 L 100 06/30/18 23:27 06/30/18 23:27 06/30/18 23:27 06/30/18 23:27 06/30/18 14:07 Intake and Output: 06/30/18 07/01/18 18:59 06:59 Intake Total 1475 0 Output Total 1501 Balance -26 0 - Medications Medications: Current Medications Albumin Human (Albumin Human 25% (25 Gm/100 Ml)) 25 gm IV Q6 [facility] Stop: 07/01/18 06:01 Last Admin: 06/30/18 18:09 Dose: 25 gm Calcium Carbonate (Caltrate) 600 mg PO DAILY [facility] Last Admin: 06/30/18 10:11 Dose: Not Given Ergocalciferol (Drisdol 50,000 Intl Units Cap) 1 cap PO Q7D [facility] Last Admin: 06/29/18 10:24 Dose: 1 cap Ferrous Gluconate (Fergon) 324 mg PO TID [facility] Last Admin: 06/30/18 17:11 Dose: 324 mg Folic Acid (Folic Acid) 1 mg PO DAILY [facility] Last Admin: 06/30/18 10:11 Dose: Not Given Metronidazole (Flagyl) 500 mg in 100 mls @ 100 mls/hr IVPB Q8 [facility] PRN Reason: Protocol Last Admin: 06/30/18 23:28 Dose: 100 mls/hr Sodium Bicarbonate 150 meq/ (Dextrose) 1,150 mls @ 100 mls/hr IV .[id number] [facility] Last Admin: 06/30/18 18:09 Dose: 100 mls/hr Mupirocin (Bactroban Ointment) 0 gm TOP BID [facility] Last Admin: 06/30/18 17:12 Dose: 1 applic Pantoprazole Sodium (Protonix Ec Tab) 40 mg PO 0600,1600 [facility] Last Admin: 06/30/18 17:11 Dose: 40 mg Thiamine HCl (Vitamin B1 Tab) 100 mg PO DAILY [facility] Last Admin: 06/30/18 17:11 Dose: 100 mg Vitamin B Complex/Vit C/Folic Acid (Nephro-Batsheva) 1 tab PO 0800 [facility] - Labs Labs: 06/30/18 06:30 06/30/18 19:30 PT 24.8 SECONDS (9.4-12.5) H 06/30/18 11:00 INR 2.12 06/30/18 11:00 APTT 39.9 Seconds (25.1-36.5) H 06/30/18 11:00 Attending/Attestation - Attestation I have personally seen and examined this patient.: Yes I have fully participated in the care of the patient.: Yes I have reviewed all pertinent clinical information, including history, physical exam and plan: Yes Notes (Text): This is an addendum to GI followup report dictated by the [facility]. The patient was seen and evaluated earlier. Medical records, lab studies, imagings were reviewed. Last 24 hours events reviewed. Agreed with the above treatment plan as outlined in [facility] 's notes with the addition of the following Patient procedure colonoscopy was canceled in view of hyponatremia Reschedule procedure when optimized Followup with the hemoglobin, INR 07/01/18 00:27
[2018-06-30 11:25] LABS: INR 2.12; PARTIAL THROMBOPLASTIN TIME 39.9 Seconds (25.1-36.5); PROTHROMBIN TIME 24.8 SECONDS (9.4-12.5)
--- NOTE | 2018-06-30 15:38 | CP.PCM.CON ---
History of Present Illness - History of Present Illness History of Present Illness: Nephrology Consultation Note: Assessment: critical hypovolemic hyponatremia with hypotension likely due to GI fluid loss NAGMA likely due to GI loss hypotension/hypovolemic shock Colitis Anemia ? GI bleed severe hypoalbuminemia with malnourished state Hypokalemia DVT on Coumadin, peptic ulcer disease, multiple episodes of SBO, chronic anemia , and developmental delay Plan No acute need for renal replacement therapy at this time. Maintain hemodynamics stable. Avoid hypotension. BP on low side. will give IV albumin for volume resus. Monitor Input/Output, daily weights and serum Na level target correction in serum Na no more than 6-8 meq/24 hrs. no further need of hypertonic saline. not needed samsca at this time started sodium bicarb supplements with fluid started thiamine, FA and MVI anemia management as per primary team. consider PRBC replete lytes as needed urine studies as ordered will also check cortisol level Dose meds/antibiotics for normal GFR. Glycemic control. Further work up/management as per primary team Thanks for allowing me to participate in care of your patient. Will follow patient with you. Please call if any Qs. had d/w team Dr Eulalio Hudson Office: [phone] Chief Complaint; unable Reason for consult: Hyponatremia and acidosis HPI: Pt is a 48 M with hx of DVT on Coumadin, peptic ulcer disease, multiple episodes of SBO, chronic anemia, and developmental delay came with low Bp and diarrhoea, anemia. also found to have acidosis, hyponatremia and renal consult for further management pt unable to provide much significant reliable hx SBP low in 60s at presentation ROS:pt denies SOB/chest pain or urine complaints however limited from pt and unable to obtain full ROS Physical Examination: General Appearance: Comfortable, in no acute respiratory distress, malnourished and ill appearing, pale Vitals reviewed and noted as below Head; Atraumatic, normocephalic ENT: dry oral mucosa. no ulcers. EYES: Pupils are equal, round and reactive to light accommodation. Eye muscles and extraocular movement intact. Sclera is anicteric. Neck; supple no lymphadenopathy, no thyromegaly or bruit Lungs: Normal respiratory rate/effort. Breath sounds bilateral equal and b/l clear Heart: Normal rate. s1s2 normal. No rub or gallop. Extremities: no edema. No varicose veins Neurological: Patient is alert awake follow command. Skin: Warm and dry. Normal turgor. No rash. Palpitation: Normal elasticity for age. superifical skin echymoses over upper extremity noted Abdomen: Abdomen is soft. Bowel sounds +. There is no abdominal tenderness, no guarding/rigidity no organomegaly. old surgical scar + Psych: lack insight. has flat affect. hx of developmental delay MSK: no joint tenderness or swelling. Digits and nails normal, no deformity : kidney or bladder not palpable Labs/imaging reviewed. Past medical history, past surgical history, family history, social history, allergy reviewed and noted as below Family hx: no hx of CKD. Rest non-contributory work up: urine pending Past Patient History - Infectious Disease Hx of Infectious Diseases: None - Tetanus Immunizations Tetanus Immunization: Unknown - Past Social History Smoking Status: Never Smoked - CARDIAC Hx Cardiac Disorders: Yes - PULMONARY Hx Respiratory Disorders: Yes Other/Comment: aspiration pneumonia - NEUROLOGICAL Other/Comment: As per patients family member mental retardation. - HEENT Hx HEENT Problems: No - RENAL Hx Chronic Kidney Disease: No - ENDOCRINE/METABOLIC Hx Endocrine Disorders: No - HEMATOLOGICAL/ONCOLOGICAL Hx Anemia: Yes - INTEGUMENTARY Hx Dermatological Problems: Yes Other/Comment: MULTIPLE SCARRING TO ABDOMINAL AREA FROM MULTIPLE ABDOMINAL SURGERIES - MUSCULOSKELETAL/RHEUMATOLOGICAL Hx Falls: Yes - GASTROINTESTINAL Hx Gastrointestinal Disorders: Yes (gastric outlet obstruction,paralytic ileus, gerd,gi bleed,ileostomy-reversal) - GENITOURINARY/GYNECOLOGICAL Hx Genitourinary Disorders: No - PSYCHIATRIC Hx Emotional Abuse: No Hx Physical Abuse: No - SURGICAL HISTORY Other/Comment: small bowel resection. inguinal hernia repair - ANESTHESIA Hx Anesthesia Reactions: No Hx Malignant Hyperthermia: No Meds Allergies/Adverse Reactions: Allergies Allergy/AdvReac Type Severity Reaction Status Date / Time No Known Allergies Allergy Verified 11/27/17 17:29 - Medications Medications: Current Medications Calcium Carbonate (Caltrate) 600 mg PO DAILY [facility] Last Admin: 06/30/18 10:11 Dose: Not Given Ergocalciferol (Drisdol 50,000 Intl Units Cap) 1 cap PO Q7D [facility] Last Admin: 06/29/18 10:24 Dose: 1 cap Folic Acid (Folic Acid) 1 mg PO DAILY [facility] Last Admin: 06/30/18 10:11 Dose: Not Given Metronidazole (Flagyl) 500 mg in 100 mls @ 100 mls/hr IVPB Q8 [facility] PRN Reason: Protocol Last Admin: 06/30/18 14:25 Dose: 100 mls/hr Sodium Chloride (Sodium Chloride 0.9%) 1,000 mls @ 100 mls/hr IV .Q10H [facility] Last Admin: 06/29/18 10:24 Dose: 100 mls/hr Mupirocin (Bactroban Ointment) 0 gm TOP BID [facility] Last Admin: 06/30/18 10:12 Dose: 1 applic Pantoprazole Sodium (Protonix Ec Tab) 40 mg PO 0600,1600 [facility] Last Admin: 06/30/18 06:03 Dose: 40 mg Results - Vital Signs Recent Vital Signs: Last Vital Signs Temp 97.7 F 06/30/18 15:11 Pulse 87 06/30/18 15:11 Resp 18 06/30/18 15:11 BP 94/58 L 06/30/18 15:11 Pulse Ox 100 06/30/18 14:07 - Labs Result Diagrams: 06/30/18 06:30 06/30/18 06:30 Labs: Laboratory Results - last 24 hr 06/29/18 06/29/18 06/29/18 07:00 16:45 17:15 WBC 4.1 L RBC 2.91 L Hgb 7.5 L Hct 22.3 L MCV 76.6 L MCH 25.8 MCHC 33.6 RDW 15.7 H Plt Count 311 MPV 9.3 Gran % 65.0 Lymph % (Auto) 23.9 Allen % (Auto) 10.6 H Eos % (Auto) 0.5 L Baso % (Auto) 0.0 Gran # 2.69 Lymph # (Auto) 1.0 L Allen # (Auto) 0.4 Eos # (Auto) 0.0 Baso # (Auto) 0.00 PT INR APTT Sodium 122 L Potassium 3.5 L Chloride 104 Carbon Dioxide 14 L Anion Gap 8 L BUN 18 Creatinine 0.7 L Est GFR ( Amer) > 60 Est GFR (Non-Af Amer) > 60 Random Glucose 103 Calcium 6.5 L* Stool Leukocytes, Qual Negative 06/29/18 06/30/18 06/30/18 21:32 06:30 06:30 WBC 4.1 L RBC 2.92 L Hgb 7.3 L Hct 22.4 L MCV 76.7 L MCH 25.0 MCHC 32.6 RDW 15.6 H Plt Count 317 MPV 8.6 Gran % Lymph % (Auto) Allen % (Auto) Eos % (Auto) Baso % (Auto) Gran # Lymph # (Auto) Allen # (Auto) Eos # (Auto) Baso # (Auto) PT INR APTT Sodium 120 L 123 L Potassium 3.8 3.4 L Chloride 104 106 Carbon Dioxide 14 L 15 L Anion Gap 6 L 5 L BUN 15 12 Creatinine 0.6 L 0.6 L Est GFR ( Amer) > 60 > 60 Est GFR (Non-Af Amer) > 60 > 60 Random Glucose 71 68 L Calcium 6.6 L* 6.8 L* Stool Leukocytes, Qual 06/30/18 11:00 WBC RBC Hgb Hct MCV MCH MCHC RDW Plt Count MPV Gran % Lymph % (Auto) Allen % (Auto) Eos % (Auto) Baso % (Auto) Gran # Lymph # (Auto) Allen # (Auto) Eos # (Auto) Baso # (Auto) PT 24.8 H INR 2.12 APTT 39.9 H Sodium Potassium Chloride Carbon Dioxide Anion Gap BUN Creatinine Est GFR ( Amer) Est GFR (Non-Af Amer) Random Glucose Calcium Stool Leukocytes, Qual
[2018-06-30] MEDS ORDERED: Albumin Human 25% (12.5 gm/50 ml) IV SCH (15:46)
[2018-06-30] MEDS: Albumin Human 25% (25 gm/100 ml) IV SCH (18:09)
[2018-06-30] MEDS: Sodium Bicarbonate 8.4% 150 MEQ in Dextrose 5% In Water 1,000 ML IV SCH (18:09)
[2018-06-30 18:29] LABS: URINE BILIRUBIN NEGATIVE (NEGATIVE); URINE BLOOD NEGATIVE (NEGATIVE); URINE GLUCOSE (UA) NEGATIVE (NEGATIVE); URINE LEUKOCYTE ESTERASE NEGATIVE Leu/uL (NEGATIVE); URINE PROTEIN TRACE mg/dL (<30 mg/dL); URINE UROBILINOGEN 0.2 E.U./dL (<1 E.U./dL)
[2018-06-30 18:30] LABS: URINE APPEARANCE CLEAR (CLEAR); URINE COLOR YELLOW (YELLOW)
[2018-06-30 19:11] LABS: CREATININE,RANDOM URINE 99 mg/dL
[2018-06-30 19:31] LABS: OSMOLALITY,URINE 517 mosm/kg (300-1000)
[2018-06-30 20:01] LABS: BLOOD UREA NITROGEN 9 mg/dL (7-21); CALCIUM 6.8 mg/dL (8.4-10.5); GFR NON-AFRICAN AMERICAN > 60
[2018-06-30 20:39] LABS: URINE BACTERIA FEW (NEG); URINE RBC NEGATIVE /hpf (0-2)
[2018-06-30 20:40] LABS: URINE WHITE BLOOD CELL CAST 0 - 2 /hpf
[2018-07-01] MEDS: Albumin Human 25% (25 gm/100 ml) IV SCH ×2 (00:49→06:26)
--- NOTE | 2018-07-01 01:40 | CON ---
DATE: 06/30/2018 HISTORY OF PRESENT ILLNESS: Mr. Dee is a 48-year-old male, mentally challenged, who presented to the office yesterday. He was found to be very weak, hypotensive with systolic blood pressure of 60. Pale, cachexic. He had intractable diarrhea increased for past 1 day. He was transported to ED with a home health aide who accompanied him to the ED. Health care proxy, sister, Iman, was also contacted. She refused him to be transported to the ER. Emergent situation explained to her. Dr. Rey was also consulted and she was in agreement. He was found to be hypotensive in the ER also with systolic blood pressure of 60. Gave one IV fluid challenge. He was also hyponatremic with sodium of 120. Hemoglobin declined today to 7.5. He has been on Coumadin for DVT/pulmonary embolism. INR was supratherapeutic yesterday at 3.36. He has been noncompliant with the office visit. He goes to daycare in the daytime and has health aide after the daycare. He is sitting comfortably today in bed, non-communicative, not responsive. Doppler of lower extremity showed thrombophlebitis. No acute DVT. PAST MEDICAL HISTORY: Aspiration pneumonia, cachexia, chronic diarrhea, multiple abdominal surgeries, outlet obstruction, GERD, GI bleeding, ileostomy reversal, small bowel obstruction, inguinal hernia repair. FAMILY HISTORY: Unknown, adopted. HABITS: Never smoked. No history of alcohol abuse. ALLERGIES: NO KNOWN DRUG ALLERGIES. REVIEW OF SYSTEMS: As per HPI. Rest of 12-point review of systems reviewed, negative. PHYSICAL EXAMINATION: GENERAL: Comfortable in bed, in no acute distress, non-communicative, alert, not oriented. VITAL SIGNS: Temperature 98.7, heart rate 90 per minute, blood pressure 60/46 on arrival, after resuscitated with fluid it was 100/45. HEENT: Pallor positive, cachexia. CHEST: Air entry present and equal bilaterally. No added sounds. CARDIOVASCULAR: S1, S2 normal. No murmur. No gallop. ABDOMEN: Soft, nontender. No hepatosplenomegaly. EXTREMITIES: Erythema on the right extremity. LABORATORY DATA: White count 4.1, hemoglobin 7.5, hematocrit 22.3, MCV 76, platelets 311. Sodium 123, potassium 3.4, BUN 15, creatinine 0.6, calcium 6.8, iron 20. MEDICATIONS: Reviewed. ASSESSMENT AND PLAN: Severe anemia, multifactorial; iron deficiency; chronic disease; blood iron low; hemoglobin declined to 7.5, 2 units of blood transfusion to be given today, 2 units ordered, waiting for health care proxy to do verbal consent. Sister, Ms. Valerio, has been contacted by staff nurse and the nurse practitioner, Ms. Schumacher. Awaiting for call back. Hyponatremia; likely related to diarrhea, dehydration, chronic diarrhea. Hypocalcemia; calcium is being replaced. Chronic deep venous thrombosis. INR is supratherapeutic. Today it is 2.12. We will hold Coumadin for now until hemoglobin and hematocrit are stable. Managing anticoagulation is very challenging for him because he has recurrent gastrointestinal bleed, and chronic iron deficiency anemia. He has been hospitalized in the past with similar complaints. We will continue to follow closely. Thank you, Dr. Rey, for allowing us to participate in Mr. Dee's care. Candace Murillo MD [facility]
[2018-07-01] MEDS: metroNIDAZOLE IV 500 mg/100 ml 500 MG/100 ML BAG IVPB SCH ×3 (05:13→22:15)
[2018-07-01] MEDS: Pantoprazole 40 mg EC Tab PO SCH ×2 (05:13→17:31)
[2018-07-01 07:14] LABS: HEMOGLOBIN 8.6 g/dL (14.0-18.0); MEAN CORPUSCULAR HGB CONC 33.7 g/dl (31.0-37.0); MEAN PLATELET VOLUME 8.5 fl (7.0-11.0); RBC 3.31 10^6/uL (3.5-6.1); RED CELL DISTRIBUTION WIDTH 15.7 % (11.5-14.5); WHITE BLOOD COUNT 3.8 10^3/ul (4.5-11.0)
[2018-07-01 07:29] LABS: ALB/GLOB RATIO 0.9 (1.1-1.8); ALBUMIN 1.6 g/dL (3.0-4.8); ALT/SGPT 38 U/L (7-56); AST/SGOT 18 U/L (17-59); BLOOD UREA NITROGEN 6 mg/dL (7-21); CALCIUM 7.2 mg/dL (8.4-10.5); GFR NON-AFRICAN AMERICAN > 60
[2018-07-01] MEDS: Multivitamin Vitamin B Complex (Nephro-Vite) Tab PO SCH (08:41)
--- NOTE | 2018-07-01 09:35 | PN ---
DATE: 06/30/2018 SUBJECTIVE: The patient was seen and examined on the bedside on 06/30/2018. Notes are for 06/30/2018. The patient is looking comfortable. No acute event happened overnight. No nausea or vomiting. Tolerating food. No hematuria or hematochezia. No fever. No chills. No shortness of breath. The patient is a very poor historian. PHYSICAL EXAMINATION: VITAL SIGNS: Temperature 97.8, pulse 92, respiratory rate 18, blood pressure 193/58, pulse oximetry 100. HEENT: Head normocephalic, atraumatic. Eyes PERRLA. Extraocular muscles intact. Conjunctivae clear. Nose patent. Mucous membrane moist. NECK: Supple. No carotid bruit. No JVD or thyromegaly. CHEST: Bilaterally symmetrical. HEART: S1 and S2 positive. LUNGS: Clear to auscultation. ABDOMEN: Soft. Bowel sounds positive. No organomegaly. EXTREMITIES: No edema. No cyanosis. NEUROLOGICAL: The patient is awake and alert. Moving all 4 extremities. No focal deficits. MEDICATIONS: Caltrate, vitamin D, folic acid, Flagyl, NS, potassium, Bactrim, pantoprazole. LABORATORY DATA: White blood cells 4.1, hemoglobin 7.3, hematocrit 22.4, platelets 317. Sodium 123, potassium 3.4, BUN 12, creatinine 0.6, glucose 68. ASSESSMENT AND PLAN: Mr. Sean Dee, 48-year-old male with hyponatremia; hypokalemia; anemia; thrombocytopenia; has a history of recent deep venous thrombosis, on Coumadin; gastroesophageal reflux disease with perforation of peptic ulcers; multiple episodes of small bowel obstruction; chronic anemia; history of acute on chronic diarrhea. CT of abdomen and pelvis appreciated. Stool cultures, electrolytes and leukocytes pending. No ova or parasite. H and H are done, getting blood transfusion. Continue trending with serial CBC. Clear liquid diet. Will go for flexible sigmoidoscopy once the hyponatremia is corrected and sodium is above 130 as per GI. Length of time discussion done with the patient's sister. Nurses got concerned for blood transfusion. Seen by adoption coordinator, nut grinder and GI. Repeat extremity ultrasound is done as per Dr. Juan Easley. Postphlebitic changes in the right common femoral vein, femoral vein and popliteal vein. No acute deep venous thrombosis appreciated. We will follow up. Meme Rey MD [facility]
--- NOTE | 2018-07-01 10:21 | PN ---
DATE: 07/01/2018 SUBJECTIVE: Comfortable in bed, in no acute distress. He received 2 units of blood transfusion yesterday. Hemoglobin improved to 8.6, INR is 2.12. He was admitted with hyponatremia, hypotension, severe anemia. Currently, he is on Coumadin for DVT and pulmonary embolism. He has IVC filter. Gastroenterology, Dr. Davies evaluated, plan for flexible sigmoidoscopy once clinically stable. No events overnight. REVIEW OF SYSTEMS: Could not be obtained, mentally challenged. PHYSICAL EXAMINATION: GENERAL: Comfortable in bed, in no acute distress. VITAL SIGNS: Temperature 98.2, heart rate 85 per minute, blood pressure 82/54, pulse ox is 97% on room air, respiratory rate is 20 per minute. HEENT: Pallor positive. NECK: No lymphadenopathy. CHEST: Air entry present and equal bilateral. No added sounds. CARDIOVASCULAR: S1 and S2 normal. No murmur. No gallop. ABDOMEN: Soft, nontender. No hepatosplenomegaly. EXTREMITIES: No edema. CORPORATE ADMINISTRATIVE ASSISTANT: Alert, not oriented to time, place and person. LABORATORY DATA: White count 3.8, hemoglobin 8.6, hematocrit 25.5, platelet 234. Sodium 127, potassium 3, creatinine 0.6, calcium is 7.2, B12 more than 2000. MEDICATIONS: Calcium, vitamin D, ferrous gluconate 324 t.i.d., folic acid 1 mg daily, Flagyl IV, Protonix 40 b.i.d., B1 multivitamin, and received albumin yesterday. ASSESSMENT AND PLAN: 1. Severe anemia, iron deficiency related to chronic gastrointestinal bleed. Plan for flexible sigmoidoscopy once stable. Evaluated by Dr. Davies. 2. Hematology. Hemoglobin and hematocrit improved, received 2 units of blood transfusion yesterday, hemoglobin is 8.6. INR is therapeutic 2.12. Coumadin is on hold until stable. 3. Chronic diarrhea. Currently on Flagyl. Workup in progress. 4. GI. Blood culture is not positive. 5. Cardiovascular. Still hypotensive. Blood pressure is in 85 systolic. Management as per Dr. Rey. Thank you, Dr. Rey, for allowing us to participate in Mr. Dee's care. Candace Murillo MD [facility] # [id number] MTDVíctor
[2018-07-01] MEDS: Mupirocin 2% Ointment 15 GM TUBE TOP SCH ×2 (10:26→17:30)
[2018-07-01] MEDS ORDERED: Albumin Human 25% (25 gm/100 ml) IV ONE (10:56)
--- NOTE | 2018-07-01 10:58 | CP.PCM.PN ---
Subjective - Date & Time of Evaluation Date of Evaluation: 07/01/18 Time of Evaluation: 10:56 - Subjective Subjective: Nephrology Consultation Note: Assessment: critical hypovolemic hyponatremia with hypotension likely due to GI fluid loss NAGMA likely due to GI loss hypotension/hypovolemic shock Colitis Anemia ? GI bleed severe hypoalbuminemia with malnourished state Hypokalemia DVT on Coumadin, peptic ulcer disease, multiple episodes of SBO, chronic anemia , and developmental delay Plan No acute need for renal replacement therapy at this time. Maintain hemodynamics stable. Avoid hypotension. BP on low side. will give IV albumin another dose for volume resus. s/p 3 dose of 25 gram each so far Monitor Input/Output, daily weights and serum Na level target correction in serum Na no more than 6-8 meq/24 hrs. no further need of hypertonic saline. not needed samsca at this time started sodium bicarb supplements with fluid started thiamine, FA and MVI anemia management as per primary team. consider PRBC as needed replete lytes as needed urine studies as ordered will also check cortisol level Dose meds/antibiotics for normal GFR. Glycemic control. Further work up/management as per primary team Thanks for allowing me to participate in care of your patient. Will follow patient with you. Please call if any Qs. had d/w team Dr Eulalio Hudson Office: [phone] Chief Complaint; unable Reason for consult: Hyponatremia and acidosis HPI: Pt is a 48 M with hx of DVT on Coumadin, peptic ulcer disease, multiple episodes of SBO, chronic anemia, and developmental delay came with low Bp and diarrhoea, anemia. also found to have acidosis, hyponatremia and renal consult for further management pt unable to provide much significant reliable hx SBP low in 60s at presentation ROS:pt denies SOB/chest pain or urine complaints however limited from pt and unable to obtain full ROS Physical Examination: General Appearance: Comfortable, in no acute respiratory distress, malnourished and ill appearing, pale Vitals reviewed and noted as below Head; Atraumatic, normocephalic ENT: dry oral mucosa. no ulcers. EYES: Pupils are equal, round and reactive to light accommodation. Eye muscles and extraocular movement intact. Sclera is anicteric. Neck; supple no lymphadenopathy, no thyromegaly or bruit Lungs: Normal respiratory rate/effort. Breath sounds bilateral equal and b/l clear Heart: Normal rate. s1s2 normal. No rub or gallop. Extremities: no edema. No varicose veins Neurological: Patient is alert awake follow command. Skin: Warm and dry. Normal turgor. No rash. Palpitation: Normal elasticity for age. superifical skin echymoses over upper extremity noted Abdomen: Abdomen is soft. Bowel sounds +. There is no abdominal tenderness, no guarding/rigidity no organomegaly. old surgical scar + Psych: lack insight. has flat affect. hx of developmental delay MSK: no joint tenderness or swelling. Digits and nails normal, no deformity : kidney or bladder not palpable Labs/imaging reviewed. Past medical history, past surgical history, family history, social history, allergy reviewed and noted as below Family hx: no hx of CKD. Rest non-contributory work up: reviewed Objective - Vital Signs/Intake and Output Vital Signs (last 24 hours): Temp Pulse Resp BP Pulse Ox 98.2 F 85 20 82/54 L 97 07/01/18 06:00 07/01/18 06:00 07/01/18 06:00 07/01/18 06:00 07/01/18 06:00 Intake and Output: 07/01/18 07/01/18 06:59 18:59 Intake Total 2400 Output Total 0 Balance 2400 - Medications Medications: Current Medications Albumin Human (Albumin Human 25% (12.5 Gm/50 Ml)) 25 gm IV ONCE ONE Stop: 07/01/18 10:57 Calcium Carbonate (Caltrate) 600 mg PO DAILY [facility] Last Admin: 06/30/18 10:11 Dose: Not Given Ergocalciferol (Drisdol 50,000 Intl Units Cap) 1 cap PO Q7D [facility] Last Admin: 06/29/18 10:24 Dose: 1 cap Ferrous Gluconate (Fergon) 324 mg PO TID [facility] Last Admin: 06/30/18 17:11 Dose: 324 mg Folic Acid (Folic Acid) 1 mg PO DAILY [facility] Last Admin: 06/30/18 10:11 Dose: Not Given Metronidazole (Flagyl) 500 mg in 100 mls @ 100 mls/hr IVPB Q8 [facility] PRN Reason: Protocol Last Admin: 07/01/18 05:13 Dose: 100 mls/hr Sodium Bicarbonate 150 meq/ (Dextrose) 1,150 mls @ 100 mls/hr IV .[id number] [facility] Last Admin: 06/30/18 18:09 Dose: 100 mls/hr Mupirocin (Bactroban Ointment) 0 gm TOP BID [facility] Last Admin: 06/30/18 17:12 Dose: 1 applic Pantoprazole Sodium (Protonix Ec Tab) 40 mg PO 0600,1600 [facility] Last Admin: 07/01/18 05:13 Dose: 40 mg Potassium Chloride (Potassium Chloride Oral Soln) 40 meq PO Q4 [facility] Stop: 07/01/18 16:01 Thiamine HCl (Vitamin B1 Tab) 100 mg PO DAILY [facility] Last Admin: 06/30/18 17:11 Dose: 100 mg Vitamin B Complex/Vit C/Folic Acid (Nephro-Batsheva) 1 tab PO 0800 [facility] Last Admin: 07/01/18 08:41 Dose: 1 tab - Labs Labs: 07/01/18 06:45 07/01/18 06:45 PT 24.8 SECONDS (9.4-12.5) H 06/30/18 11:00 INR 2.12 06/30/18 11:00 APTT 39.9 Seconds (25.1-36.5) H 06/30/18 11:00
--- NOTE | 2018-07-01 11:14 | CP.PCM.PN ---
<Demar Maier - Last Filed: 07/01/18 11:19> Subjective - Date & Time of Evaluation Date of Evaluation: 07/01/18 Time of Evaluation: 11:13 - Subjective Subjective: GI Progress Note for Dr. Davies's Service- [place], PGY2 Patient seen and assessed at bedside. No acute events overnight noted. Patient reports that he is tolerating his diet well with no problems. Patient otherwise currently denies any fevers, chills, chest pain, SOB, abdominal pain, N/V/D/C, changes in urine output or any skin changes. Objective - Vital Signs/Intake and Output Vital Signs (last 24 hours): Temp Pulse Resp BP Pulse Ox 98.2 F 85 20 82/54 L 97 07/01/18 06:00 07/01/18 06:00 07/01/18 06:00 07/01/18 06:00 07/01/18 06:00 Intake and Output: 07/01/18 07/01/18 06:59 18:59 Intake Total 2400 Output Total 0 Balance 2400 - Medications Medications: Current Medications Calcium Carbonate (Caltrate) 600 mg PO DAILY [facility] Last Admin: 06/30/18 10:11 Dose: Not Given Ergocalciferol (Drisdol 50,000 Intl Units Cap) 1 cap PO Q7D [facility] Last Admin: 06/29/18 10:24 Dose: 1 cap Ferrous Gluconate (Fergon) 324 mg PO TID [facility] Last Admin: 06/30/18 17:11 Dose: 324 mg Folic Acid (Folic Acid) 1 mg PO DAILY [facility] Last Admin: 06/30/18 10:11 Dose: Not Given Metronidazole (Flagyl) 500 mg in 100 mls @ 100 mls/hr IVPB Q8 [facility] PRN Reason: Protocol Last Admin: 07/01/18 05:13 Dose: 100 mls/hr Sodium Bicarbonate 150 meq/ (Dextrose) 1,150 mls @ 100 mls/hr IV .[id number] [facility] Last Admin: 06/30/18 18:09 Dose: 100 mls/hr Mupirocin (Bactroban Ointment) 0 gm TOP BID [facility] Last Admin: 06/30/18 17:12 Dose: 1 applic Pantoprazole Sodium (Protonix Ec Tab) 40 mg PO 0600,1600 [facility] Last Admin: 07/01/18 05:13 Dose: 40 mg Potassium Chloride (Potassium Chloride Oral Soln) 40 meq PO Q4 [facility] Stop: 07/01/18 16:01 Thiamine HCl (Vitamin B1 Tab) 100 mg PO DAILY [facility] Last Admin: 06/30/18 17:11 Dose: 100 mg Vitamin B Complex/Vit C/Folic Acid (Nephro-Batsheva) 1 tab PO 0800 [facility] Last Admin: 07/01/18 08:41 Dose: 1 tab - Labs Labs: 07/01/18 06:45 07/01/18 06:45 PT 24.8 SECONDS (9.4-12.5) H 06/30/18 11:00 INR 2.12 06/30/18 11:00 APTT 39.9 Seconds (25.1-36.5) H 06/30/18 11:00 - Constitutional Appears: Non-toxic, No Acute Distress - Head Exam Head Exam: ATRAUMATIC, NORMOCEPHALIC - Eye Exam Eye Exam: EOMI - Neck Exam Neck Exam: Full ROM - Respiratory Exam Respiratory Exam: NORMAL BREATHING PATTERN. absent: Accessory Muscle Use, Respiratory Distress - Cardiovascular Exam Cardiovascular Exam: +S1, +S2 - GI/Abdominal Exam GI & Abdominal Exam: Soft, Normal Bowel Sounds. absent: Bruit, Distended, Firm , Guarding, Rigid, Tenderness, Diminished Bowel Sounds, Hernia, Hyperactive Bowel Sounds, Hypoactive Bowel Sounds, Organomegaly, Pulsatile Mass, Rebound, Mass Additional comments: Multiple abdominal wall scars noted - Rectal Exam Rectal Exam: Deferred - Neurological Exam Neurological Exam: Alert, Awake - Skin Skin Exam: Dry, Intact, Normal Color, Warm Assessment and Plan - Assessment and Plan (Free Text) Assessment: 48 year old male with a past medical history significant for recent DVT (08/2017 ) on Coumadin, GERD with perforated ulcers, multiple episodes of SBO, chronic anemia, and developmental delay who presented from his hematologists office after he was found to be hypotensive with SBP in 60's. GI was consulted for chronic diarrhea and abdominal pain. Plan: -CT Abdomen/Pelvis showed fluid throughout the colon, a moderate amount of stool in the rectum, no evidence of small bowel obstruction and a suture line seen at the junction of the sigmoid and rectum with narrowing of the colon in this region -Stool leukocytes and Stool Ova/Parasites negative -Stool culture and stool electrolytes pending -H/H currently stable at 8.6 (s/p two units pRBC's overnight) -Continue trending with serial CBC's -INR pending (on Coumadin); Hold AC -Clear Liquid Diet -Continue PPI BID GI Disposition: Patient will be taken for flexible sigmoidoscopy once hyponatremia is corrected and sodium above 130 (currently 127). Will continue to monitor and plan for flexible sigmoidoscopy accordingly. Patient seen and case discussed with attending, Dr. Davies. <Cristiane Davies V - Last Filed: 07/01/18 23:09> Objective - Vital Signs/Intake and Output Vital Signs (last 24 hours): Temp Pulse Resp BP Pulse Ox 97.4 F L 78 18 92/65 L 100 07/01/18 23:02 07/01/18 23:02 07/01/18 23:02 07/01/18 23:02 07/01/18 23:02 - Medications Medications: Current Medications Calcium Carbonate (Caltrate) 600 mg PO DAILY [facility] Last Admin: 07/01/18 11:18 Dose: 600 mg Cholecalciferol (Vitamin D) 2,000 intlu PO DAILY [facility] Ergocalciferol (Drisdol 50,000 Intl Units Cap) 1 cap PO Q7D [facility] Last Admin: 06/29/18 10:24 Dose: 1 cap Ferrous Gluconate (Fergon) 324 mg PO TID [facility] Last Admin: 07/01/18 17:31 Dose: 324 mg Folic Acid (Folic Acid) 1 mg PO DAILY [facility] Last Admin: 07/01/18 11:18 Dose: 1 mg Metronidazole (Flagyl) 500 mg in 100 mls @ 100 mls/hr IVPB Q8 [facility] PRN Reason: Protocol Last Admin: 07/01/18 22:15 Dose: 100 mls/hr Sodium Bicarbonate 150 meq/ (Dextrose) 1,150 mls @ 100 mls/hr IV .[id number] [facility] Last Admin: 07/01/18 14:27 Dose: 100 mls/hr Mupirocin (Bactroban Ointment) 0 gm TOP BID [facility] Last Admin: 07/01/18 17:30 Dose: 1 applic Pantoprazole Sodium (Protonix Ec Tab) 40 mg PO 0600,1600 [facility] Last Admin: 07/01/18 17:31 Dose: 40 mg Thiamine HCl (Vitamin B1 Tab) 100 mg PO DAILY [facility] Last Admin: 07/01/18 11:19 Dose: 100 mg Vitamin B Complex/Vit C/Folic Acid (Nephro-Batsheva) 1 tab PO 0800 [facility] Last Admin: 07/01/18 08:41 Dose: 1 tab - Labs Labs: 07/01/18 06:45 07/01/18 06:45 PT 23.2 SECONDS (9.4-12.5) H 07/01/18 11:20 INR 1.99 07/01/18 11:20 APTT 42.8 Seconds (25.1-36.5) H 07/01/18 11:20 Attending/Attestation - Attestation I have personally seen and examined this patient.: Yes I have fully participated in the care of the patient.: Yes I have reviewed all pertinent clinical information, including history, physical exam and plan: Yes Notes (Text): This is an addendum to GI followup report dictated by the Principal Embedded Software Engineer. The patient was seen and evaluated earlier. Medical records, lab studies, imagings were reviewed. Last 24 hours events reviewed. 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
[2018-07-01] MEDS: Potassium Chloride 40 mEq/30 ml LIQ UD PO SCH ×3 (11:21→17:32)
[2018-07-01] MEDS: Sodium Bicarbonate 8.4% 150 MEQ in Dextrose 5% In Water 1,000 ML IV SCH ×3 (11:22→14:27)
[2018-07-01 11:35] LABS: INR 1.99; PARTIAL THROMBOPLASTIN TIME 42.8 Seconds (25.1-36.5); PROTHROMBIN TIME 23.2 SECONDS (9.4-12.5)
--- NOTE | 2018-07-01 12:54 | PQF ---
PROVIDER RESPONSE TEXT: Provider was unable to determine a response for this query. REVIEWER QUERY TEXT: Anemia Type Anemia is documented in the Medical Record. Please specify the cause (includes suspected or probable cause) Such as: -- Due to acute blood loss -- Due to chronic blood loss -- Due to iron deficiency -- Due to postoperative blood loss -- Due to chronic disease -- Other, please specify The patient's Clinical Indicators include: Query created by: Josette Rogers on 06/30/2018 1:45 PM Electronically signed by: Demar Maier 07/01/2018 12:51 PM
[2018-07-01 13:06] LABS: FERRITIN 15.8 ng/mL
--- NOTE | 2018-07-02 00:01 | PN ---
DATE: 07/01/2018 SUBJECTIVE: The patient is 48-year-old male. The patient was seen and examined on the bedside on 07/01/2018. Progress notes are for 07/01/2018 and looking comfortable. No nausea, vomiting or diarrhea. No hematuria or hematochezia. The patient is a poor historian. He received 2 units of packed RBCs. Hemoglobin improved to 8.6. No fever. No chills. PHYSICAL EXAMINATION: VITAL SIGNS: Temperature 98.2, heart rate 85, blood pressure 82/54, pulse oximetry 97% on room air. HEENT: Head normocephalic, atraumatic. Eyes PERRLA. Extraocular muscles intact. Conjunctivae clear. Nose patent. Mucous membrane moist. NECK: Supple. No carotid bruit. No JVD or thyromegaly. CHEST: Bilaterally symmetrical. HEART: S1 and S2 positive. LUNGS: Clear to auscultation. ABDOMEN: Soft. Bowel sounds positive. No organomegaly. EXTREMITIES: No edema. No cyanosis. NEUROLOGICAL: The patient is awake and alert. Follows simple commands. MEDICATIONS: Bactroban ointment, calcium, ergocalciferol, ferrous sulfate, Flagyl, folic acid, Nepro vitamins, pantoprazole, lactose, thiamine. LABORATORY DATA: White blood cells 3.8, hemoglobin 8.6, hematocrit 25.5, platelet 234. Sodium 127, potassium 3, BUN 6, creatinine 0.6, calcium is 7.2. ASSESSMENT AND PLAN: Mr. Leila Estrada is a 48-year-old male with leukopenia, anemia, hyponatremia, hypokalemia, hypocalcemia, improved; low protein, vitamin D deficiency. We will replace. Proteinuria, ketonuria, stool occult positive. Stool leukocyte is negative. Seen by Dr. Candace Murillo. Status post blood transfusion, history of deep venous thrombosis, getting Coumadin. Dr. Davies to do flexible sigmoidoscopy. Chronic diarrhea, continue Flagyl. Workup in the process. Still hypotensive. We will replace vitamin D. Die Caster also saw the patient. Gastrointestinal and deep venous thrombosis prophylaxis. Repeat labs. We will follow up. Meme Rey MD
[2018-07-02] MEDS: Sodium Bicarbonate 8.4% 150 MEQ in Dextrose 5% In Water 1,000 ML IV SCH ×2 (02:09→17:50)
[2018-07-02] MEDS: metroNIDAZOLE IV 500 mg/100 ml 500 MG/100 ML BAG IVPB SCH ×3 (05:43→21:48)
[2018-07-02] MEDS: Pantoprazole 40 mg EC Tab PO SCH ×2 (05:43→16:55)
[2018-07-02] MEDS: Multivitamin Vitamin B Complex (Nephro-Vite) Tab PO SCH (08:14)
[2018-07-02 10:11] LABS: BASO # 0.01 K/mm3 (0.0-2.0); BASO % 0.2 % (0.0-3.0); EOS % 0.8 % (1.5-5.0); GRAN # 3.6 (1.4-6.5); GRAN % 73.1 % (50.0-68.0); HEMOGLOBIN 9.7 g/dL (14.0-18.0); LYMPH # 0.8 (1.2-3.4); LYMPH % 15.7 % (22.0-35.0); MEAN CELL VOLUME 77.9 fl (80.0-105.0); MEAN CORPUSCULAR HEMOGLOBIN 26.1 pg (25.0-35.0); MEAN CORPUSCULAR HGB CONC 33.6 g/dl (31.0-37.0); MEAN PLATELET VOLUME 8.7 fl (7.0-11.0); MONO # 0.5 (0.1-0.6); MONO % 10.2 % (1.0-6.0); RBC 3.71 10^6/uL (3.5-6.1); RED CELL DISTRIBUTION WIDTH 15.9 % (11.5-14.5); WHITE BLOOD COUNT 4.9 10^3/ul (4.5-11.0)
[2018-07-02 10:24] LABS: INR 1.93; PARTIAL THROMBOPLASTIN TIME 43.1 Seconds (25.1-36.5); PROTHROMBIN TIME 22.5 SECONDS (9.4-12.5)
[2018-07-02 10:32] LABS: ALB/GLOB RATIO 1.1 (1.1-1.8); ALBUMIN 1.8 g/dL (3.0-4.8); ALT/SGPT 32 U/L (7-56); AST/SGOT 16 U/L (17-59); BLOOD UREA NITROGEN < 2 mg/dL (7-21); CALCIUM 7.6 mg/dL (8.4-10.5); GFR NON-AFRICAN AMERICAN > 60
--- NOTE | 2018-07-02 10:45 | CP.PCM.PN ---
<Demar Maier - Last Filed: 07/02/18 10:55> Subjective - Date & Time of Evaluation Date of Evaluation: 07/02/18 Time of Evaluation: 10:45 - Subjective Subjective: GI Progress Note for Dr. Davies's Service- [place], PGY2 Patient seen and assessed at bedside. No acute events overnight noted. Patient denies any fevers, chills, chest pain, SOB, abdominal pain, N/V/D/C, changes in urine output or any skin changes. Objective - Vital Signs/Intake and Output Vital Signs (last 24 hours): Temp Pulse Resp BP Pulse Ox 97.4 F L 67 18 88/54 L 97 07/02/18 06:00 07/02/18 06:00 07/02/18 06:00 07/02/18 06:00 07/02/18 06:00 Intake and Output: 07/02/18 07/02/18 06:59 18:59 Intake Total 2400 Balance 2400 - Medications Medications: Current Medications Calcium Carbonate (Caltrate) 600 mg PO DAILY [facility] Last Admin: 07/01/18 11:18 Dose: 600 mg Cholecalciferol (Vitamin D) 2,000 intlu PO DAILY [facility] Ergocalciferol (Drisdol 50,000 Intl Units Cap) 1 cap PO Q7D [facility] Last Admin: 06/29/18 10:24 Dose: 1 cap Ferrous Gluconate (Fergon) 324 mg PO TID [facility] Last Admin: 07/01/18 17:31 Dose: 324 mg Folic Acid (Folic Acid) 1 mg PO DAILY [facility] Last Admin: 07/01/18 11:18 Dose: 1 mg Metronidazole (Flagyl) 500 mg in 100 mls @ 100 mls/hr IVPB Q8 [facility] PRN Reason: Protocol Last Admin: 07/02/18 05:43 Dose: 100 mls/hr Sodium Bicarbonate 150 meq/ (Dextrose) 1,150 mls @ 100 mls/hr IV .[id number] [facility] Last Admin: 07/02/18 02:09 Dose: 100 mls/hr Mupirocin (Bactroban Ointment) 0 gm TOP BID [facility] Last Admin: 07/01/18 17:30 Dose: 1 applic Pantoprazole Sodium (Protonix Ec Tab) 40 mg PO 0600,1600 [facility] Last Admin: 07/02/18 05:43 Dose: 40 mg Thiamine HCl (Vitamin B1 Tab) 100 mg PO DAILY [facility] Last Admin: 07/01/18 11:19 Dose: 100 mg Vitamin B Complex/Vit C/Folic Acid (Nephro-Batsheva) 1 tab PO 0800 [facility] Last Admin: 07/02/18 08:14 Dose: 1 tab - Labs Labs: 07/02/18 10:00 07/02/18 10:00 PT 22.5 SECONDS (9.4-12.5) H 07/02/18 10:00 INR 1.93 07/02/18 10:00 APTT 43.1 Seconds (25.1-36.5) H 07/02/18 10:00 - Constitutional Appears: Non-toxic, No Acute Distress - Head Exam Head Exam: ATRAUMATIC, NORMOCEPHALIC - Eye Exam Eye Exam: EOMI - Neck Exam Neck Exam: Full ROM - Respiratory Exam Respiratory Exam: NORMAL BREATHING PATTERN. absent: Accessory Muscle Use, Respiratory Distress - Cardiovascular Exam Cardiovascular Exam: +S1, +S2 - GI/Abdominal Exam GI & Abdominal Exam: Soft, Normal Bowel Sounds. absent: Bruit, Distended, Firm , Guarding, Rigid, Tenderness, Diminished Bowel Sounds, Hernia, Hyperactive Bowel Sounds, Hypoactive Bowel Sounds, Organomegaly, Pulsatile Mass, Rebound, Mass Additional comments: Multiple abdominal wall scars from previous surgeries noted - Rectal Exam Rectal Exam: Deferred - Neurological Exam Neurological Exam: Alert, Awake - Skin Skin Exam: Dry, Intact, Normal Color, Warm Assessment and Plan - Assessment and Plan (Free Text) Assessment: 48 year old male with a past medical history significant for recent DVT (08/2017 ) on Coumadin, GERD with perforated ulcers, multiple episodes of SBO, chronic anemia, and developmental delay who presented from his hematologists office after he was found to be hypotensive with SBP in 60's. GI was consulted for chronic diarrhea and abdominal pain. Plan: -CT Abdomen/Pelvis showed fluid throughout the colon, a moderate amount of stool in the rectum, no evidence of small bowel obstruction and a suture line seen at the junction of the sigmoid and rectum with narrowing of the colon in this region -Stool cultures, stool leukocytes and stool ova/parasites negative -Stool electrolytes pending -H/H currently stable at 9.7 (s/p two units pRBC's overnight) -Continue trending with serial CBC's -INR currently 1.93 -Hold AC -Full Liquid Diet -Continue PPI BID GI Disposition: Patient will be taken for flexible sigmoidoscopy once hyponatremia is corrected and sodium above 130 (currently 129). Will continue to monitor and plan for flexible sigmoidoscopy accordingly. Further management per primary team. Patient seen and case discussed with attending, Dr. Davies. <Cristiane Davies V - Last Filed: 07/03/18 20:56> Objective - Vital Signs/Intake and Output Vital Signs (last 24 hours): Temp Pulse Resp BP Pulse Ox 97.7 F 88 18 90/50 L 94 L 07/03/18 18:48 07/03/18 18:48 07/03/18 18:48 07/03/18 18:48 07/03/18 18:48 Intake and Output: 07/03/18 07/04/18 18:59 06:59 Intake Total 660 Output Total 1 Balance 659 - Medications Medications: Current Medications Calcium Carbonate (Caltrate) 600 mg PO DAILY [facility] Last Admin: 07/03/18 09:13 Dose: 600 mg Cholecalciferol (Vitamin D) 2,000 intlu PO DAILY [facility] Last Admin: 07/03/18 09:12 Dose: 2,000 intlu Cosyntropin (Cortrosyn) 0.25 mg IV ONCE ONE Stop: 07/04/18 06:31 Ergocalciferol (Drisdol 50,000 Intl Units Cap) 1 cap PO Q7D [facility] Last Admin: 06/29/18 10:24 Dose: 1 cap Ferrous Gluconate (Fergon) 324 mg PO TID [facility] Last Admin: 07/03/18 17:48 Dose: 324 mg Folic Acid (Folic Acid) 1 mg PO DAILY [facility] Last Admin: 07/03/18 09:13 Dose: 1 mg Metronidazole (Flagyl) 500 mg in 100 mls @ 100 mls/hr IVPB Q8 [facility] PRN Reason: Protocol Last Admin: 07/03/18 13:10 Dose: 100 mls/hr Sodium Bicarbonate 150 meq/ (Dextrose) 1,150 mls @ 100 mls/hr IV .[id number] [facility] Last Admin: 07/03/18 06:17 Dose: 100 mls/hr Mupirocin (Bactroban Ointment) 0 gm TOP BID [facility] Last Admin: 07/03/18 17:50 Dose: 1 applic Pantoprazole Sodium (Protonix Ec Tab) 40 mg PO 0600,1600 [facility] Last Admin: 07/03/18 17:48 Dose: 40 mg Thiamine HCl (Vitamin B1 Tab) 100 mg PO DAILY [facility] Last Admin: 07/03/18 09:13 Dose: 100 mg Vitamin B Complex/Vit C/Folic Acid (Nephro-Batsheva) 1 tab PO 0800 [facility] Last Admin: 07/03/18 09:13 Dose: 1 tab - Labs Labs: 07/03/18 07:30 07/03/18 07:30 PT 22.5 SECONDS (9.4-12.5) H 07/02/18 10:00 INR 1.93 07/02/18 10:00 APTT 43.1 Seconds (25.1-36.5) H 07/02/18 10:00 Attending/Attestation - Attestation I have personally seen and examined this patient.: Yes I have fully participated in the care of the patient.: Yes I have reviewed all pertinent clinical information, including history, physical exam and plan: Yes Notes (Text): This is a delayed addendum to GI followup report dictated by the Library Technology Instructor. The patient was seen and evaluated earlier. Medical records, lab studies, imagings were reviewed. Last 24 hours events reviewed. Agreed with the above treatment plan as outlined in Library Technology Instructor 's notes with the addition of the following Colonoscopy canceled by anesthesiologist in view of hyponatremia Still INR elevated History of DVT Needs anticoagulation Reschedule for colonoscopy Will discuss with PCP 07/03/18 20:54
[2018-07-02] MEDS: Mupirocin 2% Ointment 15 GM TUBE TOP SCH ×3 (11:00→16:59)
[2018-07-02] MEDS: Cholecalciferol 1,000 INTLU TAB PO SCH (11:00)
--- NOTE | 2018-07-02 11:43 | CP.PCM.PN ---
Subjective - Date & Time of Evaluation Date of Evaluation: 07/02/18 Time of Evaluation: 11:43 - Subjective Subjective: patient in bed Not in acute distress no chest pain no shortness of breath Objective - Vital Signs/Intake and Output Vital Signs (last 24 hours): Temp Pulse Resp BP Pulse Ox 97.4 F L 67 18 88/54 L 97 07/02/18 06:00 07/02/18 06:00 07/02/18 06:00 07/02/18 06:00 07/02/18 06:00 Intake and Output: 07/02/18 07/02/18 06:59 18:59 Intake Total 2400 Balance 2400 - Medications Medications: Current Medications Calcium Carbonate (Caltrate) 600 mg PO DAILY [facility] Last Admin: 07/02/18 10:58 Dose: 600 mg Cholecalciferol (Vitamin D) 2,000 intlu PO DAILY [facility] Last Admin: 07/02/18 11:00 Dose: 2,000 intlu Ergocalciferol (Drisdol 50,000 Intl Units Cap) 1 cap PO Q7D [facility] Last Admin: 06/29/18 10:24 Dose: 1 cap Ferrous Gluconate (Fergon) 324 mg PO TID [facility] Last Admin: 07/02/18 10:58 Dose: 324 mg Folic Acid (Folic Acid) 1 mg PO DAILY [facility] Last Admin: 07/02/18 10:58 Dose: 1 mg Metronidazole (Flagyl) 500 mg in 100 mls @ 100 mls/hr IVPB Q8 [facility] PRN Reason: Protocol Last Admin: 07/02/18 05:43 Dose: 100 mls/hr Sodium Bicarbonate 150 meq/ (Dextrose) 1,150 mls @ 100 mls/hr IV .[id number] [facility] Last Admin: 07/02/18 02:09 Dose: 100 mls/hr Mupirocin (Bactroban Ointment) 0 gm TOP BID [facility] Last Admin: 07/01/18 17:30 Dose: 1 applic Pantoprazole Sodium (Protonix Ec Tab) 40 mg PO 0600,1600 [facility] Last Admin: 07/02/18 05:43 Dose: 40 mg Thiamine HCl (Vitamin B1 Tab) 100 mg PO DAILY [facility] Last Admin: 07/02/18 10:58 Dose: 100 mg Vitamin B Complex/Vit C/Folic Acid (Nephro-Batsheva) 1 tab PO 0800 [facility] Last Admin: 07/02/18 08:14 Dose: 1 tab - Labs Labs: 07/02/18 10:00 07/02/18 10:00 PT 22.5 SECONDS (9.4-12.5) H 07/02/18 10:00 INR 1.93 07/02/18 10:00 APTT 43.1 Seconds (25.1-36.5) H 07/02/18 10:00 - Constitutional Appears: No Acute Distress - Eye Exam Eye Exam: Conjunctival injection - ENT Exam ENT Exam: Mucous Membranes Moist - Neck Exam Neck Exam: absent: Lymphadenopathy - Respiratory Exam Respiratory Exam: NORMAL BREATHING PATTERN. absent: Chest Wall Tenderness - Cardiovascular Exam Cardiovascular Exam: absent: Gallop, JVD, Rubs - GI/Abdominal Exam GI & Abdominal Exam: Soft, Normal Bowel Sounds - Extremities Exam Extremities Exam: absent: Calf Tenderness - Back Exam Back Exam: absent: CVA tenderness (L), CVA tenderness (R) - Neurological Exam Neurological Exam: Alert - Skin Skin Exam: absent: Cyanosis Assessment and Plan (1) Hyponatremia Assessment & Plan: hypovolemic hyponatremia with hypotension likely due to GI fluid loss hypotension/hypovolemic Colitis Anemia ? GI bleed severe hypoalbuminemia with malnourished state Hypokalemia DVT on Coumadin, peptic ulcer disease, multiple episodes of SBO, chronic anemia , and developmental delay plan From sodium improving going up the latest serum sodium 129 Continue intravenous fluid serum CO2 has gone up to 23 Please DC sodium bicarbonate in the IV fluid and change IV fluid to normal saline metabolic acidosis corrected Status: Acute
[2018-07-02 14:59] LABS: CALCIUM 7.5 mg/dL (8.4-10.5); GFR NON-AFRICAN AMERICAN > 60
[2018-07-02 15:13] LABS: BLOOD UREA NITROGEN < 2 mg/dL (7-21)
--- NOTE | 2018-07-03 05:48 | PN ---
DATE: 07/02/2018 SUBJECTIVE: Patient is a 48-year-old male. Patient was seen and examined on the bedside on 07/02/2018, looking comfortable. No fever. No chills. No nausea, vomiting, or diarrhea. Tolerated food very well. No hematuria or hematochezia. PHYSICAL EXAMINATION: VITAL SIGNS: Temperature 97.4, pulse 97, respiratory rate 18, blood pressure 80/54, pulse oximetry 97%. HEENT: Head: Normocephalic, atraumatic. Eyes: PERRLA. Extraocular muscles intact. Conjunctivae clear. Nose patent. Mucous membrane moist. NECK: Supple. No carotid bruit, JVD, or thyromegaly. CHEST: Bilaterally symmetrical. HEART: S1 and S2 positive. LUNGS: Clear to auscultation. ABDOMEN: Soft. Bowel sounds present. No organomegaly. EXTREMITIES: No edema. No cyanosis. NEUROLOGIC: Patient is awake and alert. Moving all 4 extremities. No focal deficit, but getting confused. Patient is a very poor historian. LABORATORY DATA: White blood cells 4.9, hemoglobin 9.7, hematocrit 28.9, platelets 250. Sodium 129, potassium 3.4, BUN 22, creatinine 0.5, glucose 102. ASSESSMENT AND PLAN: Mr. Sean Dee is a 48-year-old male with anemia; hyponatremia; hypokalemia; has a history of deep vein thrombosis, on Coumadin; gastroesophageal reflux disease; perforated ulcers; multiple episodes of small bowel obstruction; chronic anemia and developmental delay. Came from milk collector's office, had hypotensive with systolic blood pressure 60. CT of abdomen appreciated. Monitoring hemoglobin and hematocrit. Continue present treatment. Requiring blood transfusion. INR is currently 1.93. Rn Supplemental is on the case. We will work on changing Coumadin. Full liquid diet. Continue proton pump inhibitor two times a day. Gastrointestinal and deep venous thrombosis prophylaxes. Repeat labs. Out of bed. Physical therapy. We will follow up. Meme Rey MD
[2018-07-03] MEDS: Sodium Bicarbonate 8.4% 150 MEQ in Dextrose 5% In Water 1,000 ML IV SCH ×2 (06:17→21:37)
[2018-07-03] MEDS: metroNIDAZOLE IV 500 mg/100 ml 500 MG/100 ML BAG IVPB SCH ×3 (06:18→21:38)
[2018-07-03] MEDS: Pantoprazole 40 mg EC Tab PO SCH ×2 (06:19→17:48)
[2018-07-03 08:00] LABS: BASO # 0.02 K/mm3 (0.0-2.0); BASO % 0.5 % (0.0-3.0); EOS # 0.1 (0.0-0.7); EOS % 1.3 % (1.5-5.0); GRAN # 2.33 (1.4-6.5); GRAN % 61.3 % (50.0-68.0); HEMOGLOBIN 9.7 g/dL (14.0-18.0); LYMPH # 0.9 (1.2-3.4); LYMPH % 24.5 % (22.0-35.0); MEAN CORPUSCULAR HEMOGLOBIN 26.1 pg (25.0-35.0); MEAN CORPUSCULAR HGB CONC 33.1 g/dl (31.0-37.0); MEAN PLATELET VOLUME 9.2 fl (7.0-11.0); MONO # 0.5 (0.1-0.6); MONO % 12.4 % (1.0-6.0); RBC 3.71 10^6/uL (3.5-6.1); WHITE BLOOD COUNT 3.8 10^3/ul (4.5-11.0)
[2018-07-03 08:32] LABS: ALBUMIN 1.6 g/dL (3.0-4.8); ALT/SGPT 34 U/L (7-56); AST/SGOT 23 U/L (17-59); BLOOD UREA NITROGEN 2 mg/dL (7-21); CALCIUM 7.3 mg/dL (8.4-10.5); GFR NON-AFRICAN AMERICAN > 60
[2018-07-03] MEDS: Cholecalciferol 1,000 INTLU TAB PO SCH (09:12)
[2018-07-03] MEDS: Mupirocin 2% Ointment 15 GM TUBE TOP SCH ×2 (09:12→17:50)
[2018-07-03] MEDS: Multivitamin Vitamin B Complex (Nephro-Vite) Tab PO SCH (09:13)
--- NOTE | 2018-07-03 12:10 | CP.PCM.PN ---
<KevonarnoldoEros ramos - Last Filed: 07/03/18 12:07> Subjective - Date & Time of Evaluation Date of Evaluation: 07/03/18 Time of Evaluation: 12:07 - Subjective Subjective: GI Fellow PGY4, HR elevated. Evaluated by survey director. Going to telemetry. He is tolerating diet. No complaints. Objective - Vital Signs/Intake and Output Vital Signs (last 24 hours): Temp Pulse Resp BP Pulse Ox 98.8 F 125 H 18 95/66 L 100 07/03/18 11:32 07/03/18 11:32 07/03/18 11:32 07/03/18 11:32 07/03/18 11:32 Intake and Output: 07/03/18 07/03/18 06:59 18:59 Intake Total 1200 Output Total 1 Balance 1200 -1 - Medications Medications: Current Medications Calcium Carbonate (Caltrate) 600 mg PO DAILY [facility] Last Admin: 07/03/18 09:13 Dose: 600 mg Cholecalciferol (Vitamin D) 2,000 intlu PO DAILY [facility] Last Admin: 07/03/18 09:12 Dose: 2,000 intlu Ergocalciferol (Drisdol 50,000 Intl Units Cap) 1 cap PO Q7D [facility] Last Admin: 06/29/18 10:24 Dose: 1 cap Ferrous Gluconate (Fergon) 324 mg PO TID [facility] Last Admin: 07/03/18 09:13 Dose: 324 mg Folic Acid (Folic Acid) 1 mg PO DAILY [facility] Last Admin: 07/03/18 09:13 Dose: 1 mg Metronidazole (Flagyl) 500 mg in 100 mls @ 100 mls/hr IVPB Q8 [facility] PRN Reason: Protocol Last Admin: 07/03/18 06:18 Dose: 100 mls/hr Sodium Bicarbonate 150 meq/ (Dextrose) 1,150 mls @ 100 mls/hr IV .[id number] [facility] Last Admin: 07/03/18 06:17 Dose: 100 mls/hr Sodium Chloride (Sodium Chloride 0.9%) 500 mls @ 500 mls/hr IV .Q1H [facility] Stop: 07/03/18 12:30 Mupirocin (Bactroban Ointment) 0 gm TOP BID [facility] Last Admin: 07/03/18 09:12 Dose: 1 applic Pantoprazole Sodium (Protonix Ec Tab) 40 mg PO 0600,1600 [facility] Last Admin: 07/03/18 06:19 Dose: 40 mg Thiamine HCl (Vitamin B1 Tab) 100 mg PO DAILY [facility] Last Admin: 07/03/18 09:13 Dose: 100 mg Vitamin B Complex/Vit C/Folic Acid (Nephro-Batsheva) 1 tab PO 0800 [facility] Last Admin: 07/03/18 09:13 Dose: 1 tab - Labs Labs: 07/03/18 07:30 07/03/18 07:30 PT 22.5 SECONDS (9.4-12.5) H 07/02/18 10:00 INR 1.93 07/02/18 10:00 APTT 43.1 Seconds (25.1-36.5) H 07/02/18 10:00 - Constitutional Appears: Non-toxic, No Acute Distress, Chronically Ill - Head Exam Head Exam: NORMAL INSPECTION, NORMOCEPHALIC - Eye Exam Eye Exam: EOMI, Normal appearance - ENT Exam ENT Exam: Mucous Membranes Moist - Respiratory Exam Respiratory Exam: Clear to Ausculation Bilateral, NORMAL BREATHING PATTERN - Cardiovascular Exam Cardiovascular Exam: REGULAR RHYTHM - GI/Abdominal Exam GI & Abdominal Exam: Soft, Normal Bowel Sounds. absent: Tenderness - Extremities Exam Extremities Exam: Normal Inspection - Neurological Exam Neurological Exam: Alert, Awake - Psychiatric Exam Psychiatric exam: Normal Affect, Normal Mood - Skin Skin Exam: Dry, Normal Color Assessment and Plan - Assessment and Plan (Free Text) Assessment: 48 year old male with a past medical history significant for recent DVT (08/2017 ) on Coumadin, GERD with perforated ulcers, multiple episodes of SBO, chronic anemia, and developmental delay who presented from his hematologists office after he was found to be hypotensive with SBP in 60's. GI was consulted for chronic diarrhea and abdominal pain. Plan: -CT Abdomen/Pelvis showed fluid throughout the colon, a moderate amount of stool in the rectum, no evidence of small bowel obstruction and a suture line seen at the junction of the sigmoid and rectum with narrowing of the colon in this region -Stool cultures, stool leukocytes and stool ova/parasites negative -Stool electrolytes pending -H/H currently stable. 2u pRBCs 06/30/18 -Continue trending with serial CBC's -INR currently 1.93 -Continue PPI BID -Puree diet GI Disposition: Patient will be taken for flexible sigmoidoscopy once hyponatremia is corrected and sodium above 130. Will continue to monitor and plan for flexible sigmoidoscopy accordingly. Further management per primary team. <Cristiane Davies V - Last Filed: 07/03/18 21:00> Objective - Vital Signs/Intake and Output Vital Signs (last 24 hours): Temp Pulse Resp BP Pulse Ox 97.7 F 88 18 90/50 L 94 L 07/03/18 18:48 07/03/18 18:48 07/03/18 18:48 07/03/18 18:48 07/03/18 18:48 Intake and Output: 07/03/18 07/04/18 18:59 06:59 Intake Total 660 Output Total 1 Balance 659 - Medications Medications: Current Medications Calcium Carbonate (Caltrate) 600 mg PO DAILY [facility] Last Admin: 07/03/18 09:13 Dose: 600 mg Cholecalciferol (Vitamin D) 2,000 intlu PO DAILY [facility] Last Admin: 07/03/18 09:12 Dose: 2,000 intlu Cosyntropin (Cortrosyn) 0.25 mg IV ONCE ONE Stop: 07/04/18 06:31 Ergocalciferol (Drisdol 50,000 Intl Units Cap) 1 cap PO Q7D [facility] Last Admin: 06/29/18 10:24 Dose: 1 cap Ferrous Gluconate (Fergon) 324 mg PO TID [facility] Last Admin: 07/03/18 17:48 Dose: 324 mg Folic Acid (Folic Acid) 1 mg PO DAILY [facility] Last Admin: 07/03/18 09:13 Dose: 1 mg Metronidazole (Flagyl) 500 mg in 100 mls @ 100 mls/hr IVPB Q8 [facility] PRN Reason: Protocol Last Admin: 07/03/18 13:10 Dose: 100 mls/hr Sodium Bicarbonate 150 meq/ (Dextrose) 1,150 mls @ 100 mls/hr IV .[id number] [facility] Last Admin: 07/03/18 06:17 Dose: 100 mls/hr Mupirocin (Bactroban Ointment) 0 gm TOP BID [facility] Last Admin: 07/03/18 17:50 Dose: 1 applic Pantoprazole Sodium (Protonix Ec Tab) 40 mg PO 0600,1600 [facility] Last Admin: 07/03/18 17:48 Dose: 40 mg Thiamine HCl (Vitamin B1 Tab) 100 mg PO DAILY [facility] Last Admin: 07/03/18 09:13 Dose: 100 mg Vitamin B Complex/Vit C/Folic Acid (Nephro-Batsheva) 1 tab PO 0800 [facility] Last Admin: 07/03/18 09:13 Dose: 1 tab - Labs Labs: 07/03/18 07:30 07/03/18 07:30 PT 22.5 SECONDS (9.4-12.5) H 07/02/18 10:00 INR 1.93 07/02/18 10:00 APTT 43.1 Seconds (25.1-36.5) H 07/02/18 10:00 Attending/Attestation - Attestation I have personally seen and examined this patient.: Yes I have fully participated in the care of the patient.: Yes I have reviewed all pertinent clinical information, including history, physical exam and plan: Yes Notes (Text): This is an addendum to GI progress report dictated by the GI Fellow.The patient was seen and examined earlier. Medical records, lab studies, imagings were reviewed. Last 24 hours events reviewed. Agreed with the above treatment plan as outlined in GI Fellow 's notes with the addition of the following Discussed with Dr. Murillo Receiving lazarus fluid for hypotensive episode Follow up HCT Repeat EGD colon under GA after further optimization 07/03/18 20:57
--- NOTE | 2018-07-03 12:41 | CP.PCM.CON ---
History of Present Illness - History of Present Illness History of Present Illness: Awake, no distress Reason for consultation: Cardiac evaluation of sinus tachycardia Brief history of present illness: A 48 year old male who was bought to the ER due to low blood pressure. He was at his PMD when blood pressure was taken. History of aspiration pneumonia, GI bleeding, GI/abdominal surgeries for gastric obstruction,paralytic ileus, ileostomy with reversal, small bowel resection,inguinal hernia repair, hyponatremia,hypotension. Seen and examined by me and Dr. Hassan Review of Systems - Review of Systems All systems: reviewed and no additional remarkable complaints except Review of Systems: except from HPI Past Patient History - Infectious Disease Hx of Infectious Diseases: None - Tetanus Immunizations Tetanus Immunization: Unknown - Past Social History Smoking Status: Never Smoked - CARDIAC Hx Cardiac Disorders: Yes - PULMONARY Hx Respiratory Disorders: Yes Other/Comment: aspiration pneumonia - NEUROLOGICAL Other/Comment: As per patients family member mental retardation. - HEENT Hx HEENT Problems: No - RENAL Hx Chronic Kidney Disease: No - ENDOCRINE/METABOLIC Hx Endocrine Disorders: No - HEMATOLOGICAL/ONCOLOGICAL Hx Blood Transfusions: No Hx Blood Transfusion Reaction: No - INTEGUMENTARY Hx Dermatological Problems: Yes Other/Comment: MULTIPLE SCARRING TO ABDOMINAL AREA FROM MULTIPLE ABDOMINAL SURGERIES - MUSCULOSKELETAL/RHEUMATOLOGICAL Hx Falls: Yes - GASTROINTESTINAL Hx Gastrointestinal Disorders: Yes (gastric outlet obstruction,paralytic ileus, gerd,gi bleed,ileostomy-reversal) - GENITOURINARY/GYNECOLOGICAL Hx Genitourinary Disorders: No - PSYCHIATRIC Hx Emotional Abuse: No Hx Physical Abuse: No Hx Substance Use: No - SURGICAL HISTORY Other/Comment: small bowel resection. inguinal hernia repair - ANESTHESIA Hx Anesthesia Reactions: No Hx Malignant Hyperthermia: No Meds Allergies/Adverse Reactions: Allergies Allergy/AdvReac Type Severity Reaction Status Date / Time No Known Allergies Allergy Verified 11/27/17 17:29 - Medications Medications: Current Medications Calcium Carbonate (Caltrate) 600 mg PO DAILY [facility] Last Admin: 07/03/18 09:13 Dose: 600 mg Cholecalciferol (Vitamin D) 2,000 intlu PO DAILY [facility] Last Admin: 07/03/18 09:12 Dose: 2,000 intlu Ergocalciferol (Drisdol 50,000 Intl Units Cap) 1 cap PO Q7D [facility] Last Admin: 06/29/18 10:24 Dose: 1 cap Ferrous Gluconate (Fergon) 324 mg PO TID [facility] Last Admin: 07/03/18 09:13 Dose: 324 mg Folic Acid (Folic Acid) 1 mg PO DAILY [facility] Last Admin: 07/03/18 09:13 Dose: 1 mg Metronidazole (Flagyl) 500 mg in 100 mls @ 100 mls/hr IVPB Q8 [facility] PRN Reason: Protocol Last Admin: 07/03/18 06:18 Dose: 100 mls/hr Sodium Bicarbonate 150 meq/ (Dextrose) 1,150 mls @ 100 mls/hr IV .[id number] [facility] Last Admin: 07/03/18 06:17 Dose: 100 mls/hr Mupirocin (Bactroban Ointment) 0 gm TOP BID [facility] Last Admin: 07/03/18 09:12 Dose: 1 applic Pantoprazole Sodium (Protonix Ec Tab) 40 mg PO 0600,1600 [facility] Last Admin: 07/03/18 06:19 Dose: 40 mg Thiamine HCl (Vitamin B1 Tab) 100 mg PO DAILY [facility] Last Admin: 07/03/18 09:13 Dose: 100 mg Vitamin B Complex/Vit C/Folic Acid (Nephro-Batsheva) 1 tab PO 0800 [facility] Last Admin: 07/03/18 09:13 Dose: 1 tab Physical Exam - Constitutional Appears: No Acute Distress - Eye Exam Eye Exam: Normal appearance - ENT Exam ENT Exam: Mucous Membranes Dry - Respiratory Exam Respiratory Exam: Decreased Breath Sounds, NORMAL BREATHING PATTERN - Cardiovascular Exam Cardiovascular Exam: Tachycardia, +S1, +S2 Additional comments: Tachycardia 125/min - GI/Abdominal Exam GI & Abdominal Exam: Hypoactive Bowel Sounds, Soft - Extremities Exam Additional comments: 1-2+edema - Neurological Exam Neurological exam: Alert - Psychiatric Exam Psychiatric exam: Normal Affect - Skin Skin Exam: Dry, Warm Results - Vital Signs Recent Vital Signs: Last Vital Signs Temp 98.8 F 07/03/18 11:32 Pulse 125 H 07/03/18 11:32 Resp 18 07/03/18 11:32 BP 95/66 L 07/03/18 11:32 Pulse Ox 100 07/03/18 11:32 - Labs Result Diagrams: 07/03/18 07:30 07/03/18 07:30 Labs: Laboratory Results - last 24 hr 07/02/18 07/03/18 07/03/18 14:30 07:30 07:30 WBC 3.8 L D RBC 3.71 Hgb 9.7 L Hct 29.3 L MCV 79.0 L MCH 26.1 MCHC 33.1 RDW 16.0 H Plt Count 255 MPV 9.2 Gran % 61.3 Lymph % (Auto) 24.5 [place] % (Auto) 12.4 H Eos % (Auto) 1.3 L Baso % (Auto) 0.5 Gran # 2.33 Lymph # (Auto) 0.9 L [place] # (Auto) 0.5 Eos # (Auto) 0.1 Baso # (Auto) 0.02 Sodium 128 L 132 Potassium 3.4 L 3.6 Chloride 100 99 Carbon Dioxide 26 30 Anion Gap 5 L 7 L BUN < 2 L 2 L Creatinine 0.5 L 0.5 L Est GFR ( Amer) > 60 > 60 Est GFR (Non-Af Amer) > 60 > 60 Random Glucose 99 74 Calcium 7.5 L 7.3 L Total Bilirubin 0.2 AST 23 ALT 34 Alkaline Phosphatase 40 Total Protein 3.3 L Albumin 1.6 L Globulin 1.7 Albumin/Globulin Ratio 1.0 L Assessment & Plan - Assessment and Plan (Free Text) Assessment: A 48 year old male who was bought to the ER due to low blood pressure. He was at his PMD when blood pressure was taken. History of aspiration pneumonia, GI bleeding, GI/abdominal surgeries for gastric obstruction,paralytic ileus, ileostomy with reversal, small bowel resection,inguinal hernia repair, hyponatremia,hypotension. Initially admitted to ICU for hypotension and hyponatremia, Stabilzed and transferred to Med/Surg unit. Cardiac consult called today due to tachycardia. Tachycardia secondary to possible dehydration. IV fluids given. Plan: No distress Tachycardia secondary to possible dehydration, rate not that high 125/min Systolic blood pressure, 80-90's Continue IV hydration of D5W with Na bicarb at 100 cc/hr Sodium level 132 better from previous days Low dose betablocker if blood pressure improve/warrants Will reevaluate in AM, refer accordingly Continue current treatment Continue current medications Will follow up Plan and treatment discussed with Thank you Dr. Anton for the opportunity of taking care of Sean Dee. - Date & Time Date: 07/03/18 Time: 12:15
[2018-07-03] MEDS: Sodium Chloride 0.9% 500 ML IV SCH ×2 (12:48→12:53)
--- NOTE | 2018-07-03 12:48 | CARD ---
APPROVED REPORT Date of service: 07/03/2018 EKG Measurement Heart [id number] <Conclusion> Sinus rhythm with short LA Otherwise normal ECG
--- NOTE | 2018-07-03 21:52 | PN ---
DATE: 07/03/2018 HOURS: 11:00 a.m. SUBJECTIVE: The patient is found to be hypotensive, systolic blood pressure of 95, very tachycardiac, heart rate of 135. He is complaining of palpitations. No chest pain. No shortness of breath. He is on IV fluids for dehydration. No bleeding at this time. He was admitted with hyponatremia, hypotension, severe anemia, status post 2 units of blood transfusion. Hemoglobin improved to 9.7. Sodium improved to 132 today. PHYSICAL EXAMINATION: GENERAL: Sitting in chair, very anxious. VITAL SIGNS: Blood pressure 90 systolic, heart rate 135 beats per minute, respiratory rate 18 per minute, oxygen saturation 98% on room air. Temperature 97.9. HEENT: Pallor positive. Cachexia present. NECK: No lymphadenopathy. CHEST: Air entry present bilateral. No added sounds. CARDIOVASCULAR: Tachycardia plus. ABDOMEN: Soft, nontender. No hepatosplenomegaly. EXTREMITIES: No edema. DIGITAL MARKETING ASSISTANT: Alert, not very communicative. No focal sensory motor deficit. LABORATORY DATA: Sodium 132, potassium 3.6. Creatinine 0.5. White count 3.8, hemoglobin 9.7, hematocrit 29, platelet count 225. MEDICATIONS: Reviewed. ASSESSMENT: 1. Hypotension. 2. Tachycardia. 3. Severe anemia. 4. Coagulopathy, history of deep vein thrombosis, pulmonary embolism. 5. History of gastrointestinal bleed, multiple gastrointestinal surgeries. PLAN: Fluid bolus 500 mL ordered to be given over 45 minutes. Cardiology consultation, Dr. Hassan requested. Dr. Rey informed about the cardiac condition. We will transfer the patient to tele monitoring for tachycardia. Consultation with Silvia Mccann MD requested to rule out chronic renal insufficiency leading to chronic hypotension. Candace Murillo MD
--- NOTE | 2018-07-04 03:44 | PN ---
DATE: 07/03/2018 SUBJECTIVE: The patient is a 48-year-old male. The patient was seen and examined at the bedside on 07/03/2018. Looking comfortable. Has episodes of hypotension, systolic blood pressure was 95; very tachycardiac, heart rate 135. The patient is not a good historian. Getting IV fluid for dehydration. No episodes of vomiting. Status post 2 units of packed RBC transfusion. Sodium is improving. Discussion done with Dr. Murillo and transferred the patient to telemetry for observation of heart. Cardiology consult called with Dr. Hassan. PHYSICAL EXAMINATION: VITAL SIGNS: Blood pressure 90 systolic, heart rate 135, respiratory rate 18, temperature 97.9. HEENT: Head: Normocephalic, atraumatic. Eyes: PERRLA. Extraocular muscles intact. Conjunctivae clear. Nose patent. Mucous membranes moist. NECK: Supple. No carotid bruit. No JVD or thyromegaly. CHEST: Bilaterally symmetrical. HEART: S1 and S2 positive. LUNGS: Clear to auscultation. ABDOMEN: Soft. Bowel sounds present. No organomegaly. EXTREMITIES: No edema. No cyanosis. NEUROLOGIC: The patient is awake and alert. Moving all 4 extremities. No focal deficit. MEDICATIONS: Bactroban ointment, ferrous gluconate, Flagyl, folic acid, Protonix, dextrose, thiamine, vitamin D. LABORATORY DATA: White blood cells 3.8, hemoglobin 9.7, hematocrit 29.3, platelets 255. Sodium 132, potassium 3.9, BUN 2, creatinine 0.5, calcium 7.3, phosphorus 1.5. ASSESSMENT AND PLAN: Mr. Sean Dee is a 48-year-old male with leukopenia; anemia, status post blood transfusion; history of hyponatremia, improved; hypokalemia, improved; still has hypocalcemia; hypophosphatemia; vitamin D deficiency, replaced; proteinuria; ketonuria; history of tachycardia; palpitation; transferred to the telemetry; history of hypotension; coagulopathy; deep vein thrombosis; pulmonary embolism; history of gastrointestinal bleeding; multiple gastrointestinal surgeries. Dr. Murillo gave full bolus of intravenous fluid. Cardiology consult called. Discussion done with Dr. Murillo. Consultation with Dr. Silvia Mccann called to rule out addisonian crisis, chronic renal insufficiency may be leading to chronic hypotension. Diarrhea is better. Discussion done with nursing staff. Repeat labs. We will follow up. Meme Rey MD KAVYA
--- NOTE | 2018-07-04 05:40 | CON ---
DATE: 07/03/2018 ENDOCRINOLOGY CONSULT LOCATION: In room 272. HISTORY OF PRESENT ILLNESS: This is a 48-year-old male admitted with marked hypovolemic hyponatremia with concomitant hypotension and significant history of chronic diarrhea and is now being referred for endocrine evaluation for possible adrenal insufficiency. PAST MEDICAL HISTORY: As mentioned above, history of chronic diarrhea with multiple episodes of small-bowel obstruction; he also has underwent multiple GI workup as noted and has significant history also of longstanding colitis, the exact etiology is not known at this time. History of marked undernutrition and malnutrition with severe hypovolemia as noted, history of chronic anemia, history of deep vein thrombosis, on oral anticoagulation therapy as given, history of peptic ulcer disease and chronic gastritis. FAMILY HISTORY: Positive for hypertension and heart disease. SOCIAL HISTORY: The patient has supportive family. No known substance use. REVIEW OF SYSTEMS: As mentioned above. Admits to generalized body weakness with episodic bouts of dizziness and lightheadedness, worse on the day of admission; also admits to increasing hypersomnolence and lethargy and the patient is mostly bed bound at this time. No chest pains or palpitations, but admits to progressive shortness of breath, especially on exertion. His oral intake is nil and variable with suboptimal meal portions and admits to anorexia and progressive weight loss. No recent alterations of urinary patterns, but admits to chronic loose watery diarrhea with diffuse abdominal pain and dyspepsia and nausea as noted thereof. PHYSICAL EXAMINATION: GENERAL: This is an asthenic and chronically ill looking male. VITAL SIGNS: Blood pressure of 90/60; pulse of 100 beats per minute, regular; temperature 98; respirations 20; height is 5 feet 3 inches; weight is 110 pounds. HEENT: Head: Normocephalic. Eyes: Anicteric with pale conjunctivae. Funduscopy not possible at this time. Ears, nose and throat: Otherwise normal. NECK: Supple. Thyroid gland is normal in size. No carotid bruits or cervical adenopathy. CARDIOPULMONARY: Some adynamic precordium. S1, S2 is rapid and regular. LUNGS: Clear to auscultation. ABDOMEN: Flat, soft with positive bowel sounds. EXTREMITIES: No peripheral edema. Pulses are +2 bilaterally. LABORATORY DATA: Chemistry showed a BUN of 2, sodium 132, potassium 3.6, chloride 99, CO2 of 30, glucose 74 and creatinine 0.5. His calcium level is 7.3 with an albumin level of 1.6 and a corrected calcium of 9.7 mg/dL. The vitamin D is less than 12.8. Cortisol is 5.1, which is actually low normal, but related to severe hypoalbuminemia and reduced cortisol binding globulins. ASSESSMENT: This is a 48-year-old male with marked undernutrition and supervening hypoalbuminemia causing very low cortisol binding globulin levels and clearly falsely low cortisol values and even low normal calcium levels with the corrected calcium based on the low albumin, he actually has normocalcemia as noted and mentioned. PLAN OF MANAGEMENT: We will do a Cortrosyn stimulation test to confirm and/or indicate the presence of underlying adrenal insufficiency, which may also be responsible for the intractable loose watery diarrhea. He had undergone a complete GI workup with the previous admissions as noted. We will continue the IV hydration and nutritional supplementation as ordered. We will obtain serial chemistries and supplement accordingly as needed. We will follow. Silvia Mccann MD
[2018-07-04] MEDS: metroNIDAZOLE IV 500 mg/100 ml 500 MG/100 ML BAG IVPB SCH (06:28)
--- NOTE | 2018-07-04 07:16 | CP.PCM.PN ---
Subjective - Date & Time of Evaluation Date of Evaluation: 07/04/18 Time of Evaluation: 06:25 - Subjective Subjective: Lying in bed,awake, no distress Reason for consultation: Cardiac evaluation of sinus tachycardia,History of aspiration pneumonia, GI bleeding, GI/abdominal surgeries for gastric obstruction,paralytic ileus, ileostomy with reversal, small bowel resection, inguinal hernia repair, hyponatremia,hypotension. Seen and examined by me and Dr. Hassan Objective - Vital Signs/Intake and Output Vital Signs (last 24 hours): Temp Pulse Resp BP Pulse Ox 98.3 F 78 18 92/53 L 98 07/04/18 05:25 07/04/18 05:25 07/04/18 05:25 07/04/18 05:25 07/04/18 05:25 Intake and Output: 07/04/18 07/04/18 06:59 18:59 Intake Total 1542 Balance 1542 - Medications Medications: Current Medications Calcium Carbonate (Caltrate) 600 mg PO TID [facility] Cholecalciferol (Vitamin D) 2,000 intlu PO DAILY [facility] Last Admin: 07/03/18 09:12 Dose: 2,000 intlu Ergocalciferol (Drisdol 50,000 Intl Units Cap) 1 cap PO Q7D [facility] Last Admin: 06/29/18 10:24 Dose: 1 cap Ferrous Gluconate (Fergon) 324 mg PO TID [facility] Last Admin: 07/03/18 17:48 Dose: 324 mg Folic Acid (Folic Acid) 1 mg PO DAILY [facility] Last Admin: 07/03/18 09:13 Dose: 1 mg Metronidazole (Flagyl) 500 mg in 100 mls @ 100 mls/hr IVPB Q8 [facility] PRN Reason: Protocol Last Admin: 07/04/18 06:28 Dose: 100 mls/hr Sodium Bicarbonate 150 meq/ (Dextrose) 1,150 mls @ 100 mls/hr IV .[id number] [facility] Last Admin: 07/03/18 21:37 Dose: 100 mls/hr Mupirocin (Bactroban Ointment) 0 gm TOP BID [facility] Last Admin: 07/03/18 17:50 Dose: 1 applic Pantoprazole Sodium (Protonix Ec Tab) 40 mg PO 0600,1600 [facility] Last Admin: 07/03/18 17:48 Dose: 40 mg Thiamine HCl (Vitamin B1 Tab) 100 mg PO DAILY [facility] Last Admin: 07/03/18 09:13 Dose: 100 mg Vitamin B Complex/Vit C/Folic Acid (Nephro-Batsheva) 1 tab PO 0800 [facility] Last Admin: 07/03/18 09:13 Dose: 1 tab - Labs Labs: 07/03/18 07:30 07/03/18 07:30 PT 22.5 SECONDS (9.4-12.5) H 07/02/18 10:00 INR 1.93 07/02/18 10:00 APTT 43.1 Seconds (25.1-36.5) H 07/02/18 10:00 - Constitutional Appears: No Acute Distress - Eye Exam Eye Exam: Normal appearance - ENT Exam ENT Exam: Mucous Membranes Dry - Respiratory Exam Respiratory Exam: Decreased Breath Sounds, Clear to Ausculation Bilateral, NORMAL BREATHING PATTERN - Cardiovascular Exam Cardiovascular Exam: REGULAR RHYTHM, +S1, +S2 - GI/Abdominal Exam GI & Abdominal Exam: Soft, Normal Bowel Sounds - Neurological Exam Neurological Exam: Alert, Awake, Oriented x3 - Psychiatric Exam Psychiatric exam: Normal Affect - Skin Skin Exam: Dry, Warm Assessment and Plan - Assessment and Plan (Free Text) Assessment: A 48 year old male who was bought to the ER due to low blood pressure. He was at his PMD when blood pressure was taken. History of aspiration pneumonia, GI bleeding, GI/abdominal surgeries for gastric obstruction,paralytic ileus, ileostomy with reversal, small bowel resection,inguinal hernia repair, hyponatremia,hypotension. Initially admitted to ICU for hypotension and hyponatremia, Stabilzed and transferred to Med/Surg unit. Cardiac consult called today due to tachycardia. Tachycardia secondary to possible dehydration. IV fluids given. Plan: No distress, comfortable lying in bed Telemetry- normal sinus rhythm at 70's Tachycardia resolved Systolic blood pressure, 80-90's PRN IV bolus for hypotension Continue IV hydration of D5W with Na bicarb at 100 cc/hr Continue current treatment Continue current medications Will follow up Plan and treatment discussed with
[2018-07-04] MEDS: Pantoprazole 40 mg EC Tab PO SCH ×2 (07:31→18:23)
[2018-07-04 08:06] LABS: BASO # 0.02 K/mm3 (0.0-2.0); BASO % 0.5 % (0.0-3.0); EOS # 0.1 (0.0-0.7); EOS % 2.6 % (1.5-5.0); GRAN # 2.41 (1.4-6.5); GRAN % 61.8 % (50.0-68.0); HEMOGLOBIN 9.2 g/dL (14.0-18.0); LYMPH # 0.9 (1.2-3.4); LYMPH % 23.8 % (22.0-35.0); MEAN CELL VOLUME 79.7 fl (80.0-105.0); MEAN CORPUSCULAR HEMOGLOBIN 25.6 pg (25.0-35.0); MEAN CORPUSCULAR HGB CONC 32.2 g/dl (31.0-37.0); MEAN PLATELET VOLUME 8.9 fl (7.0-11.0); MONO # 0.4 (0.1-0.6); MONO % 11.3 % (1.0-6.0); RBC 3.59 10^6/uL (3.5-6.1); RED CELL DISTRIBUTION WIDTH 16.1 % (11.5-14.5); WHITE BLOOD COUNT 3.9 10^3/ul (4.5-11.0)
--- NOTE | 2018-07-04 08:33 | PN ---
DATE: 07/04/2018 SUBJECTIVE: He is comfortable in bed in no acute distress. Blood pressure still 92/53, heart rate is 66. Yesterday, he was tachycardiac up to 130. No bleeding from any site. He is comfortable in bed. Diarrhea improved. Evaluated by Cardiology yesterday, Dr. Hassan. REVIEW OF SYSTEMS: Could not be obtained. PHYSICAL EXAMINATION: VITAL SIGNS: Blood pressure 90/53, heart rate 73 per minute, temperature 98.3, respiratory rate 16 per minute, oxygen saturation 98% room air. HEENT: Pallor positive. GENERAL: Cachexia. CHEST: Air entry present and equal bilaterally. No added sounds. CARDIOVASCULAR: S1 and S2 normal. No murmur. No gallop. ABDOMEN: Soft, nontender. No hepatosplenomegaly. EXTREMITIES: No edema. CRAB PICKER: Alert, not oriented to time, place and person. MEDICATIONS: Calcium 600 mg p.o. b.i.d., vitamin D, ferrous gluconate 324 t.i.d., folic acid 1 mg daily, Flagyl IV, Protonix 40 mg daily, thiamine 100 mg daily. LABORATORY DATA: White count 3.8, hemoglobin 9.7, hematocrit 29.3, platelet 255. Sodium 132, potassium 3.6, creatinine 0.5. Vitamin D 12. ASSESSMENT AND PLAN: 1. Hypercoagulable status, status post deep venous thrombosis, pulmonary embolism. Anticoagulation with Coumadin is on hold and he is scheduled for procedure on Thursday for gastrointestinal bleeding. Previously he had bleeding at anastomosis. I spoke to Dr. Davies. He will do colonoscopy on Thursday. We will continue prophylactic heparin 5000 b.i.d. until colonoscopy is done. He has chronic hypotension and yesterday was tachycardic to 135. Tachycardia resolved, now hypotension still there at 92. Endocrine consultation with Dr. Mccann requested. Renal insufficiency is being investigated. 2. Hyponatremia. Sodium improved. Today's lab pending, yesterday was 132. Clostridium difficile antigen negative. We will continue IV fluids. 3. Vitamin D low at 12.8, being supplemented. Thank you Dr. Rey for allowing us to participate in Mr. Dee's care. Candace Lidia, MD
[2018-07-04 08:53] LABS: ALBUMIN 1.5 g/dL (3.0-4.8); ALT/SGPT 34 U/L (7-56); AST/SGOT 17 U/L (17-59); BLOOD UREA NITROGEN 5 mg/dL (7-21); CALCIUM 7.2 mg/dL (8.4-10.5); GFR NON-AFRICAN AMERICAN > 60
[2018-07-04] MEDS: Cholecalciferol 1,000 INTLU TAB PO SCH (10:58)
[2018-07-04] MEDS: Multivitamin Vitamin B Complex (Nephro-Vite) Tab PO SCH (10:58)
[2018-07-04] MEDS: Mupirocin 2% Ointment 15 GM TUBE TOP SCH ×2 (11:00→18:37)
--- NOTE | 2018-07-04 12:51 | PN ---
DATE: 07/04/2018 ENDOCRINOLOGY FOLLOWUP NOTE LOCATION: Room 272. SUBJECTIVE: This is a 48-year-old male with recent admission for generalized body weakness and hypovolemic hyponatremia related to chronic watery diarrhea and the possibility of adrenal insufficiency was brought up for possible exclusion as noted thereof. He also has marked hypoalbuminemia with underlying malnutrition or undernutrition with also supervening hypocalcemia related to the hypoalbuminemia as noted. His latest chemistries today showed a BUN of 5, sodium 131, potassium 4, chloride 102, CO2 27, glucose 58 and creatinine 0.6. His calcium level is 7.2 with albumin level of 1.5 and a corrected calcium of 9.7 mg/dL. We did cortrosyn (acth) stimulation test and we are awaiting the reports of the hormonal profile as ordered, which will confirm and/or indicate the presence of possible underlying adrenal insufficiency or hypoadrenalism. We will obtain serial chemistries and supplement accordingly as needed. We will follow. Silvia Mccann MD
--- NOTE | 2018-07-04 13:17 | CP.PCM.PN ---
<Eros Carter - Last Filed: 07/04/18 14:29> Subjective - Date & Time of Evaluation Date of Evaluation: 07/04/18 Time of Evaluation: 13:14 - Subjective Subjective: GI Fellow PGY4 No acute overnight events. Tolerating diet. BM yesterday. Objective - Vital Signs/Intake and Output Vital Signs (last 24 hours): Temp Pulse Resp BP Pulse Ox 98 F 91 H 16 107/71 98 07/04/18 12:00 07/04/18 12:00 07/04/18 12:00 07/04/18 12:00 07/04/18 05:25 Intake and Output: 07/04/18 07/04/18 06:59 18:59 Intake Total 1542 Balance 1542 - Medications Medications: Current Medications Calcium Carbonate (Caltrate) 600 mg PO TID [facility] Last Admin: 07/04/18 10:59 Dose: 600 mg Cholecalciferol (Vitamin D) 2,000 intlu PO DAILY [facility] Last Admin: 07/04/18 10:58 Dose: 2,000 intlu Ergocalciferol (Drisdol 50,000 Intl Units Cap) 1 cap PO Q7D [facility] Last Admin: 06/29/18 10:24 Dose: 1 cap Ferrous Gluconate (Fergon) 324 mg PO TID [facility] Last Admin: 07/04/18 10:58 Dose: 324 mg Folic Acid (Folic Acid) 1 mg PO DAILY [facility] Last Admin: 07/04/18 10:59 Dose: 1 mg Heparin Sodium (Porcine) (Heparin) 5,000 units SC Q12 [facility] PRN Reason: Protocol Last Admin: 07/04/18 10:59 Dose: 5,000 units Sodium Bicarbonate 150 meq/ (Dextrose) 1,150 mls @ 100 mls/hr IV .[id number] [facility] Last Admin: 07/03/18 21:37 Dose: 100 mls/hr Mupirocin (Bactroban Ointment) 0 gm TOP BID [facility] Last Admin: 07/04/18 11:00 Dose: 1 applic Pantoprazole Sodium (Protonix Ec Tab) 40 mg PO 0600,1600 [facility] Last Admin: 07/04/18 07:31 Dose: 40 mg Thiamine HCl (Vitamin B1 Tab) 100 mg PO DAILY [facility] Last Admin: 07/04/18 10:59 Dose: 100 mg Vitamin B Complex/Vit C/Folic Acid (Nephro-Batsheva) 1 tab PO 0800 [facility] Last Admin: 07/04/18 10:58 Dose: 1 tab - Labs Labs: 07/04/18 07:00 07/04/18 07:00 PT 22.5 SECONDS (9.4-12.5) H 07/02/18 10:00 INR 1.93 07/02/18 10:00 APTT 43.1 Seconds (25.1-36.5) H 07/02/18 10:00 - Constitutional Appears: Non-toxic, No Acute Distress - Head Exam Head Exam: NORMAL INSPECTION - Eye Exam Eye Exam: Normal appearance - Respiratory Exam Respiratory Exam: Clear to Ausculation Bilateral, NORMAL BREATHING PATTERN - Cardiovascular Exam Cardiovascular Exam: REGULAR RHYTHM, +S1, +S2 - GI/Abdominal Exam GI & Abdominal Exam: Soft, Normal Bowel Sounds. absent: Tenderness - Extremities Exam Extremities Exam: Normal Inspection - Neurological Exam Neurological Exam: Alert, Awake, Oriented x3 - Psychiatric Exam Psychiatric exam: Normal Affect, Normal Mood - Skin Skin Exam: Dry, Normal Color Assessment and Plan - Assessment and Plan (Free Text) Assessment: 48 year old male with a past medical history significant for recent DVT (08/2017 ) on Coumadin, GERD with perforated ulcers, multiple episodes of SBO, chronic anemia, and developmental delay who presented from his hematologists office after he was found to be hypotensive with SBP in 60's. GI was consulted for chronic diarrhea and abdominal pain. Plan: -CT Abdomen/Pelvis showed fluid throughout the colon, a moderate amount of stool in the rectum, no evidence of small bowel obstruction and a suture line seen at the junction of the sigmoid and rectum with narrowing of the colon in this region -Stool cultures, stool leukocytes and stool ova/parasites negative -Stool electrolytes pending -H/H currently stable. 2u pRBCs 06/30/18 -Continue trending with serial CBC's -INR currently 1.93 -Continue PPI BID -Start CLD -Bowel prep tomorrow GI Disposition: Patient will be taken for flexible sigmoidoscopy once hyponatremia is corrected and sodium above 130. Will continue to monitor and plan for flexible sigmoidoscopy accordingly. Further management per primary team. Possible procedure Thursday. <Cristiane Davies V - Last Filed: 07/05/18 00:41> Objective - Vital Signs/Intake and Output Vital Signs (last 24 hours): Temp Pulse Resp BP Pulse Ox 97.7 F 97 H 18 96/65 L 96 07/04/18 18:00 07/04/18 18:00 07/04/18 18:00 07/04/18 18:00 07/04/18 18:00 Intake and Output: 07/04/18 07/05/18 18:59 06:59 Intake Total 1300 1920 Balance 1300 1920 - Medications Medications: Current Medications Calcium Carbonate (Caltrate) 600 mg PO TID [facility] Last Admin: 07/04/18 18:23 Dose: 600 mg Cholecalciferol (Vitamin D) 2,000 intlu PO DAILY [facility] Last Admin: 07/04/18 10:58 Dose: 2,000 intlu Ergocalciferol (Drisdol 50,000 Intl Units Cap) 1 cap PO Q7D [facility] Last Admin: 06/29/18 10:24 Dose: 1 cap Ferrous Gluconate (Fergon) 324 mg PO TID [facility] Last Admin: 07/04/18 18:23 Dose: 324 mg Folic Acid (Folic Acid) 1 mg PO DAILY [facility] Last Admin: 07/04/18 10:59 Dose: 1 mg Heparin Sodium (Porcine) (Heparin) 5,000 units SC Q12 [facility] PRN Reason: Protocol Last Admin: 07/04/18 10:59 Dose: 5,000 units Sodium Bicarbonate 150 meq/ (Dextrose) 1,150 mls @ 100 mls/hr IV .[id number] [facility] Last Admin: 07/04/18 14:20 Dose: 100 mls/hr Mupirocin (Bactroban Ointment) 0 gm TOP BID [facility] Last Admin: 07/04/18 18:37 Dose: 1 applic Pantoprazole Sodium (Protonix Ec Tab) 40 mg PO 0600,1600 [facility] Last Admin: 07/04/18 18:23 Dose: 40 mg Thiamine HCl (Vitamin B1 Tab) 100 mg PO DAILY [facility] Last Admin: 07/04/18 10:59 Dose: 100 mg Vitamin B Complex/Vit C/Folic Acid (Nephro-Batsheva) 1 tab PO 0800 [facility] Last Admin: 07/04/18 10:58 Dose: 1 tab - Labs Labs: 07/04/18 07:00 07/04/18 07:00 PT 22.5 SECONDS (9.4-12.5) H 07/02/18 10:00 INR 1.93 07/02/18 10:00 APTT 43.1 Seconds (25.1-36.5) H 07/02/18 10:00 Attending/Attestation - Attestation I have personally seen and examined this patient.: Yes I have fully participated in the care of the patient.: Yes I have reviewed all pertinent clinical information, including history, physical exam and plan: Yes Notes (Text): This is an addendum to GI progress report dictated by the GI Fellow.The patient was seen and examined earlier. Medical records, lab studies, imagings were reviewed. Last 24 hours events reviewed. Agreed with the above treatment plan as outlined in GI Fellow 's notes with the addition of the following Patient is on anticoagulation for DVT History of ulceration at colonic stricture area Status post partial gastrectomy Status post sub total colectomy Hyponatriemia improved Patient would benefit from colonoscopy / flex Followup of hermoglobin INR is elevated 07/04/18 20:05 07/05/18 00:38
[2018-07-04] MEDS: Sodium Bicarbonate 8.4% 150 MEQ in Dextrose 5% In Water 1,000 ML IV SCH ×2 (14:20→23:00)
--- NOTE | 2018-07-05 01:18 | PN ---
DATE: 07/04/2018 SUBJECTIVE: The patient is a 48-year-old male. Patient was seen and examined at the bedside on 07/04/2018. Patient is sitting, having lunch. No fever. No chills. No hematuria. No hematochezia. No headache. No dizziness. No chest pain. No palpitation. Patient is getting liquid lunch today because tomorrow he has had to go for procedure. PHYSICAL EXAMINATION: VITAL SIGNS: Temperature 98.3, pulse 70, respiratory rate 18, blood pressure 92/53, pulse oximetry 98%. HEENT: Head: Normocephalic, atraumatic. Eyes: PERRLA. Extraocular muscles intact. Conjunctivae clear. Nose patent. Mucous membrane moist. NECK: Supple. No carotid bruit. No JVD or thyromegaly. CHEST: Bilaterally symmetrical. HEART: S1 and S2 positive. LUNGS: Clear to auscultation. ABDOMEN: Soft. Bowel sounds positive. No organomegaly. EXTREMITIES: No edema. No cyanosis. NEUROLOGICAL: Patient is awake and alert. Follows simple commands. MEDICATIONS: Caltrate, vitamin D, iron, folic acid, Flagyl, dextrose, Bactroban, Protonix, thiamine. LABORATORY DATA: White blood cell 3.8, hemoglobin 9.7, hematocrit 29.3, platelets 255. Sodium 130, potassium 3.6, BUN 2, creatinine noted Glucose 74. ASSESSMENT AND PLAN: Mr. Sean Dee is a 48-year-old male with leukopenia, anemia, history of hypotension, history of aspiration pneumonia and gastrointestinal bleeding, multiple abdominal surgeries for small bowel obstruction and partial gastrectomy, paralytic ileus, ileostomy with reversal, small bowel resection, inguinal hernia repair, history of hyponatremia. Patient was admitted to intensive care unit for hypotension and hyponatremia. Stabilized and transferred to medical floor. Patient had tachycardia, so Cardiology consult was called. Now patient is not dehydrated, getting intravenous fluid since admission. At telemetry he has normal sinus rhythm at 70s, tachycardia resolved. Seen by Dr. Silvia Mccann. The patient's concrete grinder operator is Candace Murillo. History of deep vein thrombosis, pulmonary embolism, was on anticoagulation with Coumadin on hold. Patient is scheduled for procedure for gastrointestinal bleeding. Patient has history of ulcers at the anastomotic site. Dr. Murillo is giving prophylactic heparin until colonoscopy done. Gastrointestinal and deep venous thrombosis prophylaxes. Repeat labs. We will follow up. Meme Rey MD MTDVíctor
[2018-07-05] MEDS: Pantoprazole 40 mg EC Tab PO SCH ×2 (06:40→17:44)
--- NOTE | 2018-07-05 06:55 | CP.PCM.PN ---
Subjective - Date & Time of Evaluation Date of Evaluation: 07/05/18 Time of Evaluation: 06:15 - Subjective Subjective: No distress,Lying in bed, easily awaken Reason for consultation and follow up: Cardiac evaluation of sinus tachycardia,History of aspiration pneumonia, GI bleeding, GI/abdominal surgeries for gastric obstruction,paralytic ileus, ileostomy with reversal, small bowel resection,inguinal hernia repair, hyponatremia,hypotension. Seen and examined by me and Dr. Berry Objective - Vital Signs/Intake and Output Vital Signs (last 24 hours): Temp Pulse Resp BP Pulse Ox 98.1 F 71 20 96/52 L 94 L 07/05/18 00:01 07/05/18 05:59 07/05/18 00:01 07/05/18 00:01 07/05/18 00:01 Intake and Output: 07/04/18 07/05/18 18:59 06:59 Intake Total 1300 2580 Output Total 2 Balance 1300 2578 - Medications Medications: Current Medications Calcium Carbonate (Caltrate) 600 mg PO TID [facility] Last Admin: 07/04/18 18:23 Dose: 600 mg Cholecalciferol (Vitamin D) 2,000 intlu PO DAILY [facility] Last Admin: 07/04/18 10:58 Dose: 2,000 intlu Ergocalciferol (Drisdol 50,000 Intl Units Cap) 1 cap PO Q7D [facility] Last Admin: 06/29/18 10:24 Dose: 1 cap Ferrous Gluconate (Fergon) 324 mg PO TID [facility] Last Admin: 07/04/18 18:23 Dose: 324 mg Folic Acid (Folic Acid) 1 mg PO DAILY [facility] Last Admin: 07/04/18 10:59 Dose: 1 mg Heparin Sodium (Porcine) (Heparin) 5,000 units SC Q12 [facility] PRN Reason: Protocol Last Admin: 07/04/18 21:31 Dose: 5,000 units Sodium Bicarbonate 150 meq/ (Dextrose) 1,150 mls @ 100 mls/hr IV .[id number] [facility] Last Admin: 07/04/18 14:20 Dose: 100 mls/hr Mupirocin (Bactroban Ointment) 0 gm TOP BID [facility] Last Admin: 07/04/18 18:37 Dose: 1 applic Pantoprazole Sodium (Protonix Ec Tab) 40 mg PO 0600,1600 [facility] Last Admin: 07/05/18 06:40 Dose: 40 mg Thiamine HCl (Vitamin B1 Tab) 100 mg PO DAILY [facility] Last Admin: 07/04/18 10:59 Dose: 100 mg Vitamin B Complex/Vit C/Folic Acid (Nephro-Batsheva) 1 tab PO 0800 [facility] Last Admin: 07/04/18 10:58 Dose: 1 tab - Labs Labs: 07/04/18 07:00 07/04/18 07:00 PT 22.5 SECONDS (9.4-12.5) H 07/02/18 10:00 INR 1.93 07/02/18 10:00 APTT 43.1 Seconds (25.1-36.5) H 07/02/18 10:00 - Constitutional Appears: No Acute Distress - Eye Exam Eye Exam: Normal appearance - ENT Exam ENT Exam: Mucous Membranes Dry - Respiratory Exam Respiratory Exam: Decreased Breath Sounds, Clear to Ausculation Bilateral, NORMAL BREATHING PATTERN - Cardiovascular Exam Cardiovascular Exam: +S1, +S2 - GI/Abdominal Exam GI & Abdominal Exam: Soft, Normal Bowel Sounds - Extremities Exam Extremities Exam: Normal Capillary Refill - Neurological Exam Neurological Exam: Alert, Awake - Psychiatric Exam Psychiatric exam: Normal Affect - Skin Skin Exam: Dry, Warm Assessment and Plan - Assessment and Plan (Free Text) Assessment: A 48 year old male who was bought to the ER due to low blood pressure. He was at his PMD when blood pressure was taken. History of aspiration pneumonia, GI bleeding, GI/abdominal surgeries for gastric obstruction,paralytic ileus, ileostomy with reversal, small bowel resection,inguinal hernia repair, hyponatremia,hypotension. Initially admitted to ICU for hypotension and hyponatremia, Stabilzed and transferred to Med/Surg unit. Cardiac consult called today due to tachycardia. Tachycardia secondary to possible dehydration. IV fluids given.Tachycardia resolved Plan: No distress, spoke to RN and heart rate goes down to 40's while sleeping then goes back up to 70's Will check TSH level today Systolic blood pressure, 80-90's PRN IV bolus for hypotension Continue IV hydration of D5W with Na bicarb at 100 cc/hr Recent Sodium level 131, improved from admission H/H stable GI on consult, work up in progress Continue current treatment Continue current medications Will follow up Plan and treatment discussed with
[2018-07-05 08:35] LABS: HEMOGLOBIN 9.1 g/dL (14.0-18.0); MEAN CELL VOLUME 79.9 fl (80.0-105.0); MEAN CORPUSCULAR HEMOGLOBIN 25.8 pg (25.0-35.0); MEAN CORPUSCULAR HGB CONC 32.3 g/dl (31.0-37.0); MEAN PLATELET VOLUME 8.7 fl (7.0-11.0); RBC 3.53 10^6/uL (3.5-6.1); RED CELL DISTRIBUTION WIDTH 16.3 % (11.5-14.5); WHITE BLOOD COUNT 4.5 10^3/ul (4.5-11.0)
[2018-07-05 08:37] LABS: BLOOD UREA NITROGEN 5 mg/dL (7-21); CALCIUM 7.4 mg/dL (8.4-10.5); GFR NON-AFRICAN AMERICAN > 60
--- NOTE | 2018-07-05 08:49 | CON ---
DATE: 07/03/2018 Consult has been already dictated by Terrie Morelos and this is addendum to that. Patient was admitted to the ER with low blood pressure. Patient has colitis. He has diarrhea. Also has history of GI bleeding. Patient had multiple abdominal surgeries for gastric obstruction, ileostomy and it was later on reversed. Patient had inguinal hernia, hyponatremia, hypotension. Patient also mentally challenged and confused. Consult has been requested for episode of hypotension and tachycardia. Patient right now is sitting comfortably in bed without any chest pain, shortness of breath or palpitations. Patient continues to get IV fluids. My impression is that patient has anemia. Hemoglobin 9.7, earlier was 7.3, 8.6 for which patient received blood transfusion and then now hemoglobin is 9.7, hematocrit 29.3. Patient also has sodium 132, potassium 3.6, BUN 2, creatinine 0.5, total protein 3.3, albumin 1.6. So patient's tachycardia and hypotension may be related to dehydration and anemia as well as low proteins. Patient transferred to telemetry to monitor his heart rate. On EKG, the heart rate was normal. Though patient is getting IV fluid therapy and also ferrous sulfate 324 three times a day and metronidazole 500 IV every 8 hours, Protonix 40 b.i.d.. We will continue this therapy and we will monitor closely and we will treat the underlying pathology of dehydration and colitis and we will follow. Eber Hassan MD
--- NOTE | 2018-07-05 09:01 | PN ---
DATE: 07/04/2018 LOCATION: The patient in room 272, bed 1. This is addendum to the progress note already dictated by Terrei Morelos APN. Consult was requested for low blood pressure and sinus tachycardia; however, the patient's blood pressure improved with IV therapy. The patient had diarrhea. Now, clinically he seems to be stable. Blood pressure is stable and heart rate is in normal sinus rhythm, rate around 80 per minute and there is no evidence of any tachycardia. The patient's tachycardia was secondary to underlying condition of diarrhea and colitis. We will continue present therapy and we will follow with you. We will monitor closely. The patient was transferred from Medical Floor to the Telemetry. Eber Hassan MD
[2018-07-05] MEDS: Cholecalciferol 1,000 INTLU TAB PO SCH (10:12)
[2018-07-05] MEDS: Multivitamin Vitamin B Complex (Nephro-Vite) Tab PO SCH (10:15)
[2018-07-05] MEDS: Mupirocin 2% Ointment 15 GM TUBE TOP SCH ×2 (10:15→17:47)
[2018-07-05] MEDS: Potassium Chloride 20 mEq/15 ml LIQ UD PO SCH ×2 (11:08→17:44)
[2018-07-05] MEDS: Sodium Chloride 0.9% 1,000 ML IV SCH (11:12)
[2018-07-05] MEDS ORDERED: Peg-Electrolyte Oral Soln 4L (Golytely) PO ONE (13:38)
--- NOTE | 2018-07-05 13:42 | CP.PCM.PN ---
Subjective - Date & Time of Evaluation Date of Evaluation: 07/05/18 Time of Evaluation: 13:41 - Subjective Subjective: Nephrology Consultation Note: Assessment: stable hypovolemic hyponatremia with hypotension likely due to GI fluid loss NAGMA likely due to GI loss hypotension/hypovolemic shock Colitis Anemia ? GI bleed severe hypoalbuminemia with malnourished state Hypokalemia DVT on Coumadin, peptic ulcer disease, multiple episodes of SBO, chronic anemia , and developmental delay Plan No acute need for renal replacement therapy at this time. Maintain hemodynamics stable. Avoid hypotension. Monitor Input/Output, daily weights and serum Na level target correction in serum Na no more than 6-8 meq/24 hrs. no further need of hypertonic saline. not needed samsca at this time started NS as IVF. d/c bicarb drip started thiamine, FA and MVI anemia management as per primary team. consider PRBC as needed replete lytes as needed urine studies as ordered reviewed cortisol level. endocrine following. pt s/p ACTH stim test Dose meds/antibiotics for normal GFR. Glycemic control. Further work up/management as per primary team Thanks for allowing me to participate in care of your patient. Will follow patient with you. Please call if any Qs. had d/w team Dr Eulalio Hudson Office: [phone] Chief Complaint; unable Reason for consult: Hyponatremia and acidosis HPI: Pt is a 48 M with hx of DVT on Coumadin, peptic ulcer disease, multiple episodes of SBO, chronic anemia, and developmental delay came with low Bp and diarrhoea, anemia. also found to have acidosis, hyponatremia and renal consult for further management pt unable to provide much significant reliable hx SBP low in 60s at presentation ROS:pt denies SOB/chest pain or urine complaints however limited from pt and unable to obtain full ROS Physical Examination: General Appearance: Comfortable, in no acute respiratory distress, malnourished and ill appearing Vitals reviewed and noted as below Head; Atraumatic, normocephalic ENT: dry oral mucosa. no ulcers. EYES: Pupils are equal, round and reactive to light accommodation. Eye muscles and extraocular movement intact. Sclera is anicteric. Neck; supple no lymphadenopathy, no thyromegaly or bruit Lungs: Normal respiratory rate/effort. Breath sounds bilateral equal and b/l clear Heart: Normal rate. s1s2 normal. No rub or gallop. Extremities: no edema. No varicose veins Neurological: Patient is alert awake follow command. Skin: Warm and dry. Normal turgor. No rash. Palpitation: Normal elasticity for age. superifical skin echymoses over upper extremity noted Abdomen: Abdomen is soft. Bowel sounds +. There is no abdominal tenderness, no guarding/rigidity no organomegaly. old surgical scar + Psych: lack insight. has flat affect. hx of developmental delay MSK: no joint tenderness or swelling. Digits and nails normal, no deformity : kidney or bladder not palpable Labs/imaging reviewed. Past medical history, past surgical history, family history, social history, allergy reviewed and noted as below Family hx: no hx of CKD. Rest non-contributory work up: reviewed Objective - Vital Signs/Intake and Output Vital Signs (last 24 hours): Temp Pulse Resp BP Pulse Ox 97.5 F L 75 18 90/58 L 98 07/05/18 12:00 07/05/18 12:00 07/05/18 12:00 07/05/18 12:43 07/05/18 06:00 Intake and Output: 07/05/18 07/05/18 06:59 18:59 Intake Total 3630 Output Total 2 Balance 3628 - Medications Medications: Current Medications Bisacodyl (Dulcolax) 10 mg PO ONCE ONE Stop: 07/05/18 18:01 Calcium Carbonate (Caltrate) 600 mg PO TID [facility] Last Admin: 07/05/18 10:12 Dose: 600 mg Ergocalciferol (Drisdol 50,000 Intl Units Cap) 1 cap PO Q7D [facility] Last Admin: 06/29/18 10:24 Dose: 1 cap Ferrous Gluconate (Fergon) 324 mg PO TID [facility] Last Admin: 07/05/18 10:12 Dose: 324 mg Folic Acid (Folic Acid) 1 mg PO DAILY [facility] Last Admin: 07/05/18 10:13 Dose: 1 mg Heparin Sodium (Porcine) (Heparin) 5,000 units SC Q12 [facility] PRN Reason: Protocol Last Admin: 07/05/18 10:12 Dose: 5,000 units Sodium Chloride (Sodium Chloride 0.9%) 1,000 mls @ 60 mls/hr IV .[id number] [facility] Last Admin: 07/05/18 11:12 Dose: 60 mls/hr Mupirocin (Bactroban Ointment) 0 gm TOP BID [facility] Last Admin: 07/05/18 10:15 Dose: Not Given Pantoprazole Sodium (Protonix Ec Tab) 40 mg PO 0600,1600 [facility] Last Admin: 07/05/18 06:40 Dose: 40 mg Polyethylene Glycol/Electrolytes (Golytely) 4,000 ml PO ONCE ONE Stop: 07/05/18 13:39 Potassium Chloride (Potassium Chloride Oral Soln) 20 meq PO BID [facility] Stop: 07/10/18 10:46 Last Admin: 07/05/18 11:08 Dose: 20 meq Thiamine HCl (Vitamin B1 Tab) 100 mg PO DAILY [facility] Last Admin: 07/05/18 10:12 Dose: 100 mg Vitamin B Complex/Vit C/Folic Acid (Nephro-Batsheva) 1 tab PO 0800 [facility] Last Admin: 07/05/18 10:15 Dose: 1 tab - Labs Labs: 07/05/18 08:10 07/05/18 08:10 PT 22.5 SECONDS (9.4-12.5) H 07/02/18 10:00 INR 1.93 07/02/18 10:00 APTT 43.1 Seconds (25.1-36.5) H 07/02/18 10:00
--- NOTE | 2018-07-05 14:14 | CP.PCM.PN ---
<Roberto Mars - Last Filed: 07/05/18 14:06> Subjective - Date & Time of Evaluation Date of Evaluation: 07/05/18 Time of Evaluation: 14:06 - Subjective Subjective: Stevan Mars Internal Medicine Resident - Progress Note for GI service Patient seen and examined. No acute events overnight. Tolerating diet, passing flatus, BM x2 over past 24 hours. Patient without complaints. Objective - Vital Signs/Intake and Output Vital Signs (last 24 hours): Temp Pulse Resp BP Pulse Ox 97.5 F L 72 18 90/58 L 98 07/05/18 12:00 07/05/18 14:00 07/05/18 12:00 07/05/18 12:43 07/05/18 06:00 Intake and Output: 07/05/18 07/05/18 06:59 18:59 Intake Total 3630 Output Total 2 Balance 3628 - Medications Medications: Current Medications Bisacodyl (Dulcolax) 10 mg PO ONCE ONE Stop: 07/05/18 18:01 Calcium Carbonate (Caltrate) 600 mg PO TID [facility] Last Admin: 07/05/18 10:12 Dose: 600 mg Ergocalciferol (Drisdol 50,000 Intl Units Cap) 1 cap PO Q7D [facility] Last Admin: 06/29/18 10:24 Dose: 1 cap Ferrous Gluconate (Fergon) 324 mg PO TID [facility] Last Admin: 07/05/18 10:12 Dose: 324 mg Folic Acid (Folic Acid) 1 mg PO DAILY [facility] Last Admin: 07/05/18 10:13 Dose: 1 mg Heparin Sodium (Porcine) (Heparin) 5,000 units SC Q12 [facility] PRN Reason: Protocol Last Admin: 07/05/18 10:12 Dose: 5,000 units Sodium Chloride (Sodium Chloride 0.9%) 1,000 mls @ 60 mls/hr IV .[id number] [facility] Last Admin: 07/05/18 11:12 Dose: 60 mls/hr Mupirocin (Bactroban Ointment) 0 gm TOP BID [facility] Last Admin: 07/05/18 10:15 Dose: Not Given Pantoprazole Sodium (Protonix Ec Tab) 40 mg PO 0600,1600 [facility] Last Admin: 07/05/18 06:40 Dose: 40 mg Potassium Chloride (Potassium Chloride Oral Soln) 20 meq PO BID [facility] Stop: 07/10/18 10:46 Last Admin: 07/05/18 11:08 Dose: 20 meq Thiamine HCl (Vitamin B1 Tab) 100 mg PO DAILY [facility] Last Admin: 07/05/18 10:12 Dose: 100 mg Vitamin B Complex/Vit C/Folic Acid (Nephro-Batsheva) 1 tab PO 0800 [facility] Last Admin: 07/05/18 10:15 Dose: 1 tab - Labs Labs: 07/05/18 08:10 07/05/18 08:10 PT 22.5 SECONDS (9.4-12.5) H 07/02/18 10:00 INR 1.93 07/02/18 10:00 APTT 43.1 Seconds (25.1-36.5) H 07/02/18 10:00 - Constitutional Appears: No Acute Distress - Head Exam Head Exam: ATRAUMATIC, NORMOCEPHALIC - Eye Exam Eye Exam: EOMI, PERRL - ENT Exam ENT Exam: Mucous Membranes Moist - Respiratory Exam Respiratory Exam: Clear to Ausculation Bilateral, NORMAL BREATHING PATTERN - Cardiovascular Exam Cardiovascular Exam: REGULAR RHYTHM, +S1, +S2 - GI/Abdominal Exam GI & Abdominal Exam: Soft, Normal Bowel Sounds. absent: Rigid, Tenderness - Neurological Exam Neurological Exam: Alert, Awake, Oriented x3 - Psychiatric Exam Psychiatric exam: Normal Affect, Normal Mood - Skin Skin Exam: Dry, Intact Assessment and Plan - Assessment and Plan (Free Text) Assessment: 48 year old male with a past medical history significant for recent DVT (08/2017 ) on Coumadin, GERD with perforated ulcers, multiple episodes of SBO, chronic anemia, and developmental delay who presented from his hematologists office after he was found to be hypotensive with SBP in 60's. GI was consulted for chronic diarrhea and abdominal pain. Plan: -CT Abdomen/Pelvis showed fluid throughout the colon, a moderate amount of stool in the rectum, no evidence of small bowel obstruction and a suture line seen at the junction of the sigmoid and rectum with narrowing of the colon in this region -Stool cultures, stool leukocytes and stool ova/parasites negative -Stool electrolytes pending -H/H currently stable 9.1/28.2 2u pRBCs 06/30/18 -Continue serial CBC's -Continue PPI BID -Start CLD -Patient with bowel prep yesterday, possible flex sig today Further recs per Dr. Davies <Cristiane Davies V - Last Filed: 07/05/18 20:34> Objective - Vital Signs/Intake and Output Vital Signs (last 24 hours): Temp Pulse Resp BP Pulse Ox 98.0 F 83 20 153/83 H 97 07/05/18 20:04 07/05/18 20:04 07/05/18 20:04 07/05/18 20:04 07/05/18 20:04 Intake and Output: 07/05/18 07/06/18 18:59 06:59 Intake Total 1620 Balance 1620 - Medications Medications: Current Medications Calcium Carbonate (Caltrate) 600 mg PO TID [facility] Last Admin: 07/05/18 17:44 Dose: 600 mg Ergocalciferol (Drisdol 50,000 Intl Units Cap) 1 cap PO Q7D [facility] Last Admin: 06/29/18 10:24 Dose: 1 cap Ferrous Gluconate (Fergon) 324 mg PO TID [facility] Last Admin: 07/05/18 17:44 Dose: 324 mg Folic Acid (Folic Acid) 1 mg PO DAILY [facility] Last Admin: 07/05/18 10:13 Dose: 1 mg Heparin Sodium (Porcine) (Heparin) 5,000 units SC Q12 [facility] PRN Reason: Protocol Last Admin: 07/05/18 10:12 Dose: 5,000 units Sodium Chloride (Sodium Chloride 0.9%) 1,000 mls @ 60 mls/hr IV .[id number] [facility] Last Admin: 07/05/18 11:12 Dose: 60 mls/hr Mupirocin (Bactroban Ointment) 0 gm TOP BID [facility] Last Admin: 07/05/18 17:47 Dose: 1 applic Pantoprazole Sodium (Protonix Ec Tab) 40 mg PO 0600,1600 [facility] Last Admin: 07/05/18 17:44 Dose: 40 mg Potassium Chloride (Potassium Chloride Oral Soln) 20 meq PO BID [facility] Stop: 07/10/18 10:46 Last Admin: 07/05/18 17:44 Dose: 20 meq Thiamine HCl (Vitamin B1 Tab) 100 mg PO DAILY [facility] Last Admin: 07/05/18 10:12 Dose: 100 mg Vitamin B Complex/Vit C/Folic Acid (Nephro-Batsheva) 1 tab PO 0800 [facility] Last Admin: 07/05/18 10:15 Dose: 1 tab - Labs Labs: 07/05/18 08:10 07/05/18 08:10 PT 22.5 SECONDS (9.4-12.5) H 07/02/18 10:00 INR 1.93 07/02/18 10:00 APTT 43.1 Seconds (25.1-36.5) H 07/02/18 10:00 Attending/Attestation - Attestation I have personally seen and examined this patient.: Yes I have fully participated in the care of the patient.: Yes I have reviewed all pertinent clinical information, including history, physical exam and plan: Yes Notes (Text): This is an addendum to GI followup report dictated by the Professor Of [employer]. The patient was seen and evaluated earlier. Medical records, lab studies, imagings were reviewed. Last 24 hours events reviewed. Agreed with the above treatment plan as outlined in Professor Of [employer] 's notes with the addition of the following This patient INR 1.93 Hemoglobin 9.1 stable Patient needs anticoagulation for DVT History of anastamotic ulcer Scheduled for flexsig tomorrow 07/05/18 20:32
[2018-07-05] MEDS ORDERED: Bisacodyl 5mg EC Tab PO ONE (18:00)
--- NOTE | 2018-07-05 18:16 | PN ---
DATE: 07/05/2018 ENDOCRINOLOGY FOLLOWUP NOTE LOCATION: Room 272. SUBJECTIVE: This is a 48-year-old male with hypovolemic hyponatremia, presenting her with loose watery diarrhea, progressively worsened until the time of admission with supervening marked generalized body weakness and also concomitant marked hypoalbuminemia with undernutrition and is being followed closely for metabolic management. There was a question of whether we were dealing with hypoadrenalism and so a Cortrosyn stimulation test was undertaken to confirm and/or negate this possibility. His chemistries today showed a BUN of 5. Sodium 130, potassium 3.4, chloride of 100, CO2 of 29. Glucose 82. Creatinine 0.5. His calcium level is 7.4 with albumin level of 1.5 and a corrected calcium of 9.9 mg/dL. His Cortrosyn stimulation test showed a basal cortisol of 7.8 mcg/dL with a 1-hour stimulation test result of 21, which is actually at cortisol to ACTH stimulation, thus excluding the possibility of adrenal insufficiency. We will obtain serial chemistries and supplement accordingly as needed. We will follow. Silvia Mccann MD
--- NOTE | 2018-07-05 23:43 | PN ---
DATE: 07/05/2018 FOLLOWUP NOTE SUBJECTIVE: He is comfortable in bed, in no acute distress. Heart rate has been in 90s. Blood pressure is still low in 90 systolic. He remains afebrile. He is being prepped for flex sigmoidoscopy tomorrow. Hemoglobin and hematocrit stable at 9 g/dL. REVIEW OF SYSTEMS: As per HPI. Rest of 12-point review of systems reviewed negative. PHYSICAL EXAMINATION: GENERAL: Comfortable in bed, in no acute distress. VITAL SIGNS: Temperature 97.8, heart rate 98 per minute, blood pressure 85/49, respiratory rate 18 per minute, oxygen saturation 96% on room air. HEENT: Pallor positive. NECK: No lymphadenopathy. CHEST: Air entry present and equal, bilateral. No added sounds. CARDIOVASCULAR: S1, S2 normal. No murmur. No gallop. ABDOMEN: Soft, nontender. No hepatosplenomegaly. EXTREMITIES: Bilateral extremity, no edema. TECHNICIAN [employer]: Alert, noncommunicative. Respond to simple questions yes and no. LABORATORY DATA: White count 4.5, hemoglobin 9.1, hematocrit 28.2, MCV 79, platelet 224. Sodium 130, potassium 3.4, creatinine 0.5, calcium 7.4, bilirubin 0.2. ASSESSMENT AND PLAN: 1. 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 Flexible sigmoidoscopy tomorrow to rule out gastrointestinal bleed. 2. History of deep venous thrombosis, pulmonary embolism. Currently, on heparin 5000 every 12. He has been on Coumadin at home. After the procedure, we will restart the Coumadin. Other oral agents, Eliquis or Pradaxa are not suitable for him as the risk of bleeding. Compliance is also an issue. 3. Iron-deficiency anemia. Received several units of blood transfusion. Currently, on oral iron. I would recommend IV iron upon discharge from the hospital because he has chronically low iron. 4. Chronic hypotension. Adrenal insufficiency is ruled out and Dr. Mccann's note reviewed. 5. Infectious disease. No growth. Clostridium difficile negative. Thank you, Dr. Rey for allowing us to participate in Mr. Dee's care. Candace Murillo MD [facility] # [id number]
[2018-07-06] MEDS: Pantoprazole 40 mg EC Tab PO SCH ×2 (06:40→17:44)
[2018-07-06] MEDS: Sodium Chloride 0.9% 1,000 ML IV SCH (06:41)
--- NOTE | 2018-07-06 06:52 | CP.PCM.PN ---
Subjective - Date & Time of Evaluation Date of Evaluation: 07/06/18 Time of Evaluation: 06:20 - Subjective Subjective: Awake, comfortable. No distress, Lying in bed Reason for consultation and follow up: Cardiac evaluation of sinus tachycardia,History of aspiration pneumonia, GI bleeding, GI/abdominal surgeries for gastric obstruction,paralytic ileus, ileostomy with reversal, small bowel resection,inguinal hernia repair, hyponatremia,hypotension. Seen and examined by me and Dr. Berry Objective - Vital Signs/Intake and Output Vital Signs (last 24 hours): Temp Pulse Resp BP Pulse Ox 98.0 F 83 20 153/83 H 97 07/05/18 20:04 07/05/18 20:04 07/05/18 20:04 07/05/18 20:04 07/05/18 20:04 Intake and Output: 07/05/18 07/06/18 18:59 06:59 Intake Total 1620 720 Balance 1620 720 - Medications Medications: Current Medications Calcium Carbonate (Caltrate) 600 mg PO TID [facility] Last Admin: 07/05/18 17:44 Dose: 600 mg Ergocalciferol (Drisdol 50,000 Intl Units Cap) 1 cap PO Q7D [facility] Last Admin: 06/29/18 10:24 Dose: 1 cap Ferrous Gluconate (Fergon) 324 mg PO TID [facility] Last Admin: 07/05/18 17:44 Dose: 324 mg Folic Acid (Folic Acid) 1 mg PO DAILY [facility] Last Admin: 07/05/18 10:13 Dose: 1 mg Heparin Sodium (Porcine) (Heparin) 5,000 units SC Q12 [facility]; Protocol Last Admin: 07/05/18 21:48 Dose: 5,000 units Sodium Chloride (Sodium Chloride 0.9%) 1,000 mls @ 60 mls/hr IV .[id number] [facility] Last Admin: 07/06/18 06:41 Dose: 60 mls/hr Mupirocin (Bactroban Ointment) 0 gm TOP BID [facility] Last Admin: 07/05/18 17:47 Dose: 1 applic Pantoprazole Sodium (Protonix Ec Tab) 40 mg PO 0600,1600 [facility] Last Admin: 07/06/18 06:40 Dose: 40 mg Potassium Chloride (Potassium Chloride Oral Soln) 20 meq PO BID [facility] Stop: 07/10/18 10:46 Last Admin: 07/05/18 17:44 Dose: 20 meq Thiamine HCl (Vitamin B1 Tab) 100 mg PO DAILY [facility] Last Admin: 07/05/18 10:12 Dose: 100 mg Vitamin B Complex/Vit C/Folic Acid (Nephro-Batsheva) 1 tab PO 0800 [facility] Last Admin: 07/05/18 10:15 Dose: 1 tab - Labs Labs: 07/05/18 08:10 07/05/18 08:10 PT 22.5 SECONDS (9.4-12.5) H 07/02/18 10:00 INR 1.93 07/02/18 10:00 APTT 43.1 Seconds (25.1-36.5) H 07/02/18 10:00 - Constitutional Appears: No Acute Distress - Eye Exam Eye Exam: Normal appearance - ENT Exam ENT Exam: Mucous Membranes Dry - Respiratory Exam Respiratory Exam: Decreased Breath Sounds, Clear to Ausculation Bilateral, NORMAL BREATHING PATTERN - Cardiovascular Exam Cardiovascular Exam: +S1, +S2 - GI/Abdominal Exam GI & Abdominal Exam: Soft, Normal Bowel Sounds - Extremities Exam Extremities Exam: Normal Capillary Refill - Neurological Exam Neurological Exam: Alert, Awake - Psychiatric Exam Psychiatric exam: Normal Affect - Skin Skin Exam: Dry, Warm Assessment and Plan - Assessment and Plan (Free Text) Assessment: A 48 year old male who was bought to the ER due to low blood pressure. He was at his PMD when blood pressure was taken. History of aspiration pneumonia, GI bleeding, GI/abdominal surgeries for gastric obstruction,paralytic ileus, ileost loreta with reversal, small bowel resection,inguinal hernia repair, hyponatremia,hypotension. Initially admitted to ICU for hypotension and hyponatremia, Stabilzed and transferred to Med/Surg unit. Cardiac consult called today due to tachycardia. Tachycardia secondary to possible dehydration. IV fluids given.Tachycardia resolved Plan: For sigmoidoscopy today No distress,awake Stable heart rate and blood pressure Continue IV fluids of NSS at 60 cc/hr Stable cardiac status H/H stable TSH normal GI on consult Continue current treatment Continue current medications Will follow up Plan and treatment discussed with
[2018-07-06 07:12] LABS: BASO # 0.07 K/mm3 (0.0-2.0); EOS # 0.1 (0.0-0.7); EOS % 3.4 % (1.5-5.0); GRAN # 1.99 (1.4-6.5); HEMOGLOBIN 9.4 g/dL (14.0-18.0); LYMPH # 1.1 (1.2-3.4); LYMPH % 29.9 % (22.0-35.0); MEAN CELL VOLUME 81.8 fl (80.0-105.0); MEAN CORPUSCULAR HEMOGLOBIN 25.9 pg (25.0-35.0); MEAN CORPUSCULAR HGB CONC 31.6 g/dl (31.0-37.0); MONO # 0.3 (0.1-0.6); MONO % 8.7 % (1.0-6.0); RBC 3.63 10^6/uL (3.5-6.1); RED CELL DISTRIBUTION WIDTH 16.7 % (11.5-14.5); WHITE BLOOD COUNT 3.6 10^3/ul (4.5-11.0)
[2018-07-06 07:26] LABS: ALB/GLOB RATIO 0.9 (1.1-1.8); ALBUMIN 1.7 g/dL (3.0-4.8); ALT/SGPT 31 U/L (7-56); AST/SGOT 20 U/L (17-59); BLOOD UREA NITROGEN 3 mg/dL (7-21); CALCIUM 7.5 mg/dL (8.4-10.5); GFR NON-AFRICAN AMERICAN > 60
[2018-07-06 07:54] LABS: INR 1.47
--- NOTE | 2018-07-06 08:27 | PN ---
DATE: 07/05/2018 This note is an addendum to initial progress note dictated by nurse practitioner. REASON FOR CONSULTATION AND FOLLOWUP: Cardiac evaluation, sick sinus syndrome. The patient is lying comfortable, not in apparent distress. History of multiple gastric obstructive surgery, ileostomy ileus. The patient was tachycardic, but now heart rate is well stable. Observed for 24 hours in telemetry. If remained stable, we will discontinue telemetry. Continue with gentle hydration. Overall, CVS is stable. We will monitor closely and if remained stable, we will discontinue telemetry. We will supplement potassium. Thank you, Dr. Rey for providing us the opportunity in taking care of the patient, Sean Dee. Eber Berry MD
--- NOTE | 2018-07-06 08:35 | PN ---
DATE: 07/05/2018 SUBJECTIVE: The patient is a 48-year-old male. The patient was seen and examined at the bedside on 07/05/2018, looking comfortable. No fever, no chills. Have good meal. No nausea, vomiting or diarrhea. No hematuria. No hematochezia. Not in distress. Heart rate in 90s. No fever. No chills. PHYSICAL EXAMINATION VITAL SIGNS: Temperature 97.8, heart rate 98, respiratory rate 18, blood pressure 85/49. HEENT: Head normocephalic, atraumatic. Eyes; PERRLA. Extraocular muscles intact. Conjunctivae clear. Nose patent. Mucous membrane moist. NECK: Supple. No carotid bruit. No JVD or thyromegaly. CHEST: Bilaterally symmetrical. HEART: S1 and S2 positive. LUNGS: Clear to auscultation. ABDOMEN: Soft. Bowel sounds positive. No organomegaly. EXTREMITIES: No edema. No cyanosis. NEUROLOGICAL: The patient is awake and alert. Moving all 4 extremities. No focal deficits. LABORATORY DATA: White blood cells 4.5, hemoglobin 9.1, hematocrit 28.2, platelets 224. Sodium 130, potassium 3.4, creatinine 0.5, calcium is 7.4. ASSESSMENT AND PLAN: Mr. Sean Dee is a 48-year-old male with multiple medical problems, mentally challenged, has cachexia related to multiple abdominal surgeries, chronic dementia, flexible sigmoidoscopy tomorrow to rule out gastrointestinal bleeding, history of deep vein thrombosis, pulmonary embolism, currently on heparin. He has been on Coumadin at home. After the procedure, we will restart Coumadin. Overall, other alternatives like Eliquis or Pradaxa are not suitable for him, as the risk of bleeding. Compliance is also an issue. Iron deficiency anemia, continue to give him supplement of iron and vitamin D and folic acid. Dr. Candace Murillo recommended intravenous iron infusion. Gastric prophylaxis. Gastrointestinal and deep venous thrombosis prophylaxes given. Repeat labs. Discussion done with patient's sister. We will follow up. Meme Rey MD
[2018-07-06] MEDS: Multivitamin Vitamin B Complex (Nephro-Vite) Tab PO SCH (10:16)
[2018-07-06] MEDS: Potassium Chloride 20 mEq/15 ml LIQ UD PO SCH ×2 (10:16→17:44)
[2018-07-06] MEDS: Ergocalciferol 50,000 Intl Units Cap PO SCH (10:16)
[2018-07-06] MEDS: Mupirocin 2% Ointment 15 GM TUBE TOP SCH ×2 (10:17→17:44)
[2018-07-06] MEDS ORDERED: Lidocaine PF 2% (5 ml) Inj (For Cardiac Arrhy) ONE (14:07)
[2018-07-06] MEDS ORDERED: Propofol 10 mg/ml Inj (20 ML) ONE (14:07)
--- NOTE | 2018-07-06 14:42 | CP.PCM.PN ---
<Sridevi Bocanegra - Last Filed: 07/06/18 14:42> Subjective - Date & Time of Evaluation Date of Evaluation: 07/06/18 Time of Evaluation: 14:00 - Subjective Subjective: PGY5 GI Follow-up Pt seen and examined in ENDO suite procedure canceled due to new onset cardiac arrhythmia, asymptomatic Denies ant abd pain +Hungry ROS: 12 point ROS conducted, neg other than above Objective - Vital Signs/Intake and Output Vital Signs (last 24 hours): Temp Pulse Resp BP Pulse Ox 97.8 F 67 19 96/57 L 95 07/06/18 09:21 07/06/18 09:21 07/06/18 09:21 07/06/18 09:21 07/06/18 09:21 Intake and Output: 07/06/18 07/06/18 06:59 18:59 Intake Total 720 Balance 720 - Medications Medications: Current Medications Calcium Carbonate (Caltrate) 600 mg PO TID [facility] Last Admin: 07/06/18 14:19 Dose: Not Given Ergocalciferol (Drisdol 50,000 Intl Units Cap) 1 cap PO Q7D [facility] Last Admin: 07/06/18 10:16 Dose: 1 cap Ferrous Gluconate (Fergon) 324 mg PO TID [facility] Last Admin: 07/06/18 14:19 Dose: Not Given Folic Acid (Folic Acid) 1 mg PO DAILY [facility] Last Admin: 07/06/18 10:17 Dose: 1 mg Heparin Sodium (Porcine) (Heparin) 5,000 units SC Q12 [facility]; Protocol Last Admin: 07/06/18 10:26 Dose: Not Given Sodium Chloride (Sodium Chloride 0.9%) 1,000 mls @ 60 mls/hr IV .[id number] [facility] Last Admin: 07/06/18 06:41 Dose: 60 mls/hr Mupirocin (Bactroban Ointment) 0 gm TOP BID [facility] Last Admin: 07/06/18 10:17 Dose: 1 applic Pantoprazole Sodium (Protonix Ec Tab) 40 mg PO 0600,1600 [facility] Last Admin: 07/06/18 06:40 Dose: 40 mg Potassium Chloride (Potassium Chloride Oral Soln) 20 meq PO BID [facility] Stop: 07/10/18 10:46 Last Admin: 07/06/18 10:16 Dose: 20 meq Thiamine HCl (Vitamin B1 Tab) 100 mg PO DAILY [facility] Last Admin: 07/06/18 10:17 Dose: 100 mg Vitamin B Complex/Vit C/Folic Acid (Nephro-Batsheva) 1 tab PO 0800 [facility] Last Admin: 07/06/18 10:16 Dose: 1 tab - Labs Labs: 07/06/18 06:30 07/06/18 06:30 PT 17.0 SECONDS (9.4-12.5) H 07/06/18 07:34 INR 1.47 07/06/18 07:34 APTT 43.1 Seconds (25.1-36.5) H 07/02/18 10:00 - Constitutional Appears: Well, No Acute Distress - Head Exam Head Exam: ATRAUMATIC, NORMOCEPHALIC - Eye Exam Eye Exam: Normal appearance - ENT Exam ENT Exam: Mucous Membranes Moist, Normal Exam - Neck Exam Neck Exam: Normal Inspection - Respiratory Exam Respiratory Exam: Clear to Ausculation Bilateral, NORMAL BREATHING PATTERN. absent: Rales, Rhonchi, Wheezes, Respiratory Distress - Cardiovascular Exam Cardiovascular Exam: Irregular Rhythm, +S1, +S2 - GI/Abdominal Exam GI & Abdominal Exam: Soft, Normal Bowel Sounds. absent: Distended, Guarding, Rigid, Tenderness, Hyperactive Bowel Sounds, Organomegaly, Rebound - Extremities Exam Extremities Exam: absent: Joint Swelling, Pedal Edema - Neurological Exam Neurological Exam: Alert, Awake. absent: Oriented x3 - Psychiatric Exam Psychiatric exam: Normal Affect, Normal Mood - Skin Skin Exam: Dry, Intact, Normal Color, Warm Assessment and Plan - Assessment and Plan (Free Text) Assessment: 8 year old male with a past medical history significant for recent DVT (08/2017) on Coumadin, GERD with perforated ulcers, multiple episodes of SBO, chronic anemia, and developmental delay who presented from his hematologists office aft er he was found to be hypotensive with SBP in 60's. GI was consulted for chronic diarrhea and abdominal pain. Flex Sig and EGD cancelled due to new cardiac arrhythmia Plan: -CT Abdomen/Pelvis showed fluid throughout the colon, a moderate amount of stool in the rectum, no evidence of small bowel obstruction and a suture line seen at the junction of the sigmoid and rectum with narrowing of the colon in this region -Stool cultures, stool leukocytes and stool ova/parasites negative -H/H currently stable -Continue serial CBC's -Continue PPI BID -Start CLD, NPO after midnight, for possible procedure if cleared by cardiology -recommend cardiology consult -D/W Dr. Rey about recommendation -transfer to Tele Further recs per Dr. Davies <Cristiane Davies V - Last Filed: 07/06/18 22:55> Objective - Vital Signs/Intake and Output Vital Signs (last 24 hours): Temp Pulse Resp BP Pulse Ox 98.1 F 67 20 107/47 L 98 07/06/18 17:03 07/06/18 17:03 07/06/18 17:03 07/06/18 17:03 07/06/18 17:03 Intake and Output: 07/06/18 07/07/18 18:59 06:59 Intake Total 1260 Balance 1260 - Medications Medications: Current Medications Calcium Carbonate (Caltrate) 600 mg PO TID [facility] Last Admin: 07/06/18 17:44 Dose: 600 mg Ergocalciferol (Drisdol 50,000 Intl Units Cap) 1 cap PO Q7D [facility] Last Admin: 07/06/18 10:16 Dose: 1 cap Ferrous Gluconate (Fergon) 324 mg PO TID [facility] Last Admin: 07/06/18 17:44 Dose: 324 mg Folic Acid (Folic Acid) 1 mg PO DAILY [facility] Last Admin: 07/06/18 10:17 Dose: 1 mg Heparin Sodium (Porcine) (Heparin) 5,000 units SC Q12 [facility]; Protocol Last Admin: 07/06/18 10:26 Dose: Not Given Sodium Chloride (Sodium Chloride 0.9%) 1,000 mls @ 60 mls/hr IV .[id number] [facility] Last Admin: 07/06/18 06:41 Dose: 60 mls/hr Mupirocin (Bactroban Ointment) 0 gm TOP BID [facility] Last Admin: 07/06/18 17:44 Dose: 1 applic Pantoprazole Sodium (Protonix Ec Tab) 40 mg PO 0600,1600 [facility] Last Admin: 07/06/18 17:44 Dose: 40 mg Potassium Chloride (Potassium Chloride Oral Soln) 20 meq PO BID [facility] Stop: 07/10/18 10:46 Last Admin: 07/06/18 17:44 Dose: 20 meq Thiamine HCl (Vitamin B1 Tab) 100 mg PO DAILY [facility] Last Admin: 07/06/18 10:17 Dose: 100 mg Vitamin B Complex/Vit C/Folic Acid (Nephro-Batsheva) 1 tab PO 0800 [facility] Last Admin: 07/06/18 10:16 Dose: 1 tab - Labs Labs: 07/06/18 06:30 07/06/18 06:30 PT 17.0 SECONDS (9.4-12.5) H 07/06/18 07:34 INR 1.47 07/06/18 07:34 APTT 43.1 Seconds (25.1-36.5) H 07/02/18 10:00 Attending/Attestation - Attestation I have personally seen and examined this patient.: Yes I have fully participated in the care of the patient.: Yes I have reviewed all pertinent clinical information, including history, physical exam and plan: Yes Notes (Text): This is an addendum to GI progress report dictated by the GI Fellow.The patient was seen and examined earlier. Medical records, lab studies, imagings were reviewed. Last 24 hours events reviewed. Agreed with the above treatment plan as outlined in GI Fellow 's notes with the addition of the following The flexsig has been canceled Patient had junctional rhythm in endo Reschedule for tomorrow if cleared by cardiology 07/06/18 22:49 07/06/18 22:55
--- NOTE | 2018-07-06 16:17 | CARD ---
APPROVED REPORT Date of service: 07/06/2018 EKG Measurement Heart [id number] <Conclusion> Sinus bradycardia with short SD
--- NOTE | 2018-07-06 16:53 | CP.PCM.PN ---
Subjective - Date & Time of Evaluation Date of Evaluation: 07/06/18 Time of Evaluation: 16:53 - Subjective Subjective: Nephrology Consultation Note: Assessment: stable hypovolemic hyponatremia with hypotension likely due to GI fluid loss NAGMA likely due to GI loss hypotension/hypovolemic shock Colitis Anemia ? GI bleed severe hypoalbuminemia with malnourished state Hypokalemia DVT on Coumadin, peptic ulcer disease, multiple episodes of SBO, chronic anemia, and developmental delay Plan No acute need for renal replacement therapy at this time. Maintain hemodynamics stable. Avoid hypotension. Monitor Input/Output, daily weights and serum Na level target correction in serum Na no more than 6-8 meq/24 hrs. no further need of hypertonic saline. not needed samsca at this time started NS as IVF. started thiamine, FA and MVI anemia management as per primary team. consider PRBC as needed replete lytes as needed urine studies as ordered reviewed cortisol level. endocrine following. pt s/p ACTH stim test Dose meds/antibiotics for normal GFR. Glycemic control. Further work up/management as per primary team Thanks for allowing me to participate in care of your patient. Will follow patient with you. Please call if any Qs. had d/w team Dr Eulalio Hudson Office: [phone] Chief Complaint; unable Reason for consult: Hyponatremia and acidosis HPI: Pt is a 48 M with hx of DVT on Coumadin, peptic ulcer disease, multiple episodes of SBO, chronic anemia, and developmental delay came with low Bp and diarrhoea, anemia. also found to have acidosis, hyponatremia and renal consult for further management pt unable to provide much significant reliable hx SBP low in 60s at presentation ROS:pt denies SOB/chest pain or urine complaints however limited from pt and unable to obtain full ROS Physical Examination: General Appearance: Comfortable, in no acute respiratory distress, malnourished and ill appearing Vitals reviewed and noted as below Head; Atraumatic, normocephalic ENT: dry oral mucosa. no ulcers. EYES: Pupils are equal, round and reactive to light accommodation. Eye muscles and extraocular movement intact. Sclera is anicteric. Neck; supple no lymphadenopathy, no thyromegaly or bruit Lungs: Normal respiratory rate/effort. Breath sounds bilateral equal and b/l clear Heart: Normal rate. s1s2 normal. No rub or gallop. Extremities: no edema. No varicose veins Neurological: Patient is alert awake follow command. Skin: Warm and dry. Normal turgor. No rash. Palpitation: Normal elasticity for age. superifical skin echymoses over upper extremity noted Abdomen: Abdomen is soft. Bowel sounds +. There is no abdominal tenderness, no guarding/rigidity no organomegaly. old surgical scar + Psych: lack insight. has flat affect. hx of developmental delay MSK: no joint tenderness or swelling. Digits and nails normal, no deformity : kidney or bladder not palpable Labs/imaging reviewed. Past medical history, past surgical history, family history, social history, allergy reviewed and noted as below Family hx: no hx of CKD. Rest non-contributory work up: reviewed Objective - Vital Signs/Intake and Output Vital Signs (last 24 hours): Temp Pulse Resp BP Pulse Ox 97.8 F 56 L 19 99/64 L 99 07/06/18 15:32 07/06/18 15:32 07/06/18 15:32 07/06/18 15:32 07/06/18 15:32 Intake and Output: 07/06/18 07/06/18 06:59 18:59 Intake Total 720 Balance 720 - Medications Medications: Current Medications Calcium Carbonate (Caltrate) 600 mg PO TID [facility] Last Admin: 07/06/18 14:19 Dose: Not Given Ergocalciferol (Drisdol 50,000 Intl Units Cap) 1 cap PO Q7D [facility] Last Admin: 07/06/18 10:16 Dose: 1 cap Ferrous Gluconate (Fergon) 324 mg PO TID [facility] Last Admin: 07/06/18 14:19 Dose: Not Given Folic Acid (Folic Acid) 1 mg PO DAILY [facility] Last Admin: 07/06/18 10:17 Dose: 1 mg Heparin Sodium (Porcine) (Heparin) 5,000 units SC Q12 [facility]; Protocol Last Admin: 07/06/18 10:26 Dose: Not Given Sodium Chloride (Sodium Chloride 0.9%) 1,000 mls @ 60 mls/hr IV .[id number] [facility] Last Admin: 07/06/18 06:41 Dose: 60 mls/hr Mupirocin (Bactroban Ointment) 0 gm TOP BID [facility] Last Admin: 07/06/18 10:17 Dose: 1 applic Pantoprazole Sodium (Protonix Ec Tab) 40 mg PO 0600,1600 [facility] Last Admin: 07/06/18 06:40 Dose: 40 mg Potassium Chloride (Potassium Chloride Oral Soln) 20 meq PO BID [facility] Stop: 07/10/18 10:46 Last Admin: 07/06/18 10:16 Dose: 20 meq Thiamine HCl (Vitamin B1 Tab) 100 mg PO DAILY [facility] Last Admin: 07/06/18 10:17 Dose: 100 mg Vitamin B Complex/Vit C/Folic Acid (Nephro-Batsheva) 1 tab PO 0800 [facility] Last Admin: 07/06/18 10:16 Dose: 1 tab - Labs Labs: 07/06/18 06:30 07/06/18 06:30 PT 17.0 SECONDS (9.4-12.5) H 07/06/18 07:34 INR 1.47 07/06/18 07:34 APTT 43.1 Seconds (25.1-36.5) H 07/02/18 10:00
--- NOTE | 2018-07-06 20:09 | PN ---
Copied To: Silvia Mccann MD Attending MD: Silvia Mccann MD DATE: 07/06/2018 ENDOCRINOLOGY FOLLOWUP NOTE LOCATION: Room 377. SUBJECTIVE: This is a 48-year-old male with recent admission for hypovolemic hyponatremia and underlying severe colitis with chronic watery diarrhea and is being followed closely for metabolic management. Because of the persistent hyponatremia, the possibility of adrenal insufficiency was brought in for the possible exclusion and we did an ACTH stimulation test as given. The results showed that he is actually clinically and biochemically euadrenal at this time. The basal cortisol was 7.8 with a 1-hour stimulation cortisol level of 21 which is actually normal and would exclude the possibility of underlying adrenal insufficiency. His TSH level is 4.54. His chemistry showed a BUN of 3. Sodium 132, potassium 4.1, chloride 105, CO2 of 27. Glucose 69. Creatinine 0.5. So at this time, we will continue the sodium chloride infusion as given with potassium supplementation also as given. We will obtain serial chemistries and supplement accordingly as needed. We will follow. Silvia Mccann MD
[2018-07-07] MEDS ORDERED: DiphenhydrAMINE 50 mg/ml Inj IVP STA (00:23)
[2018-07-07] MEDS: Sodium Chloride 0.9% 1,000 ML IV SCH (03:37)
[2018-07-07] MEDS: Pantoprazole 40 mg EC Tab PO SCH ×3 (05:35→18:17)
--- NOTE | 2018-07-07 06:10 | CP.PCM.PN ---
Subjective - Date & Time of Evaluation Date of Evaluation: 07/07/18 Time of Evaluation: 06:25 - Subjective Subjective: Feels okay, awake, comfortable.no distress, lying in bed Reason for consultation and follow up: Cardiac evaluation of sinus tachycardi a,History of aspiration pneumonia, GI bleeding, GI/abdominal surgeries for gastric obstruction,paralytic ileus, ileostomy with reversal, small bowel resection,inguinal hernia repair, hyponatremia,hypotension. Seen and examined by me and Dr. Berry Objective - Vital Signs/Intake and Output Vital Signs (last 24 hours): Temp Pulse Resp BP Pulse Ox 98.1 F 67 20 107/47 L 98 07/06/18 17:03 07/06/18 17:03 07/06/18 17:03 07/06/18 17:03 07/06/18 17:03 Intake and Output: 07/06/18 07/07/18 18:59 06:59 Intake Total 1260 Balance 1260 - Medications Medications: Current Medications Calcium Carbonate (Caltrate) 600 mg PO TID [facility] Last Admin: 07/06/18 17:44 Dose: 600 mg Ergocalciferol (Drisdol 50,000 Intl Units Cap) 1 cap PO Q7D [facility] Last Admin: 07/06/18 10:16 Dose: 1 cap Ferrous Gluconate (Fergon) 324 mg PO TID [facility] Last Admin: 07/06/18 17:44 Dose: 324 mg Folic Acid (Folic Acid) 1 mg PO DAILY [facility] Last Admin: 07/06/18 10:17 Dose: 1 mg Heparin Sodium (Porcine) (Heparin) 5,000 units SC Q12 [facility]; Protocol Last Admin: 07/06/18 10:26 Dose: Not Given Sodium Chloride (Sodium Chloride 0.9%) 1,000 mls @ 60 mls/hr IV .[id number] [facility] Last Admin: 07/07/18 03:37 Dose: 60 mls/hr Mupirocin (Bactroban Ointment) 0 gm TOP BID [facility] Last Admin: 07/06/18 17:44 Dose: 1 applic Pantoprazole Sodium (Protonix Ec Tab) 40 mg PO 0600,1600 [facility] Last Admin: 07/07/18 05:38 Dose: 40 mg Potassium Chloride (Potassium Chloride Oral Soln) 20 meq PO BID [facility] Stop: 09/29/18 10:46 Last Admin: 07/06/18 17:44 Dose: 20 meq Thiamine HCl (Vitamin B1 Tab) 100 mg PO DAILY [facility] Last Admin: 07/06/18 10:17 Dose: 100 mg Vitamin B Complex/Vit C/Folic Acid (Nephro-Batsheva) 1 tab PO 0800 [facility] Last Admin: 07/06/18 10:16 Dose: 1 tab - Labs Labs: 07/06/18 06:30 07/06/18 06:30 PT 17.0 SECONDS (9.4-12.5) H 07/06/18 07:34 INR 1.47 07/06/18 07:34 APTT 43.1 Seconds (25.1-36.5) H 07/02/18 10:00 - Constitutional Appears: No Acute Distress - ENT Exam ENT Exam: Mucous Membranes Moist - Respiratory Exam Respiratory Exam: Decreased Breath Sounds, NORMAL BREATHING PATTERN - Cardiovascular Exam Cardiovascular Exam: +S1, +S2 - GI/Abdominal Exam GI & Abdominal Exam: Soft, Normal Bowel Sounds - Extremities Exam Extremities Exam: Normal Capillary Refill - Neurological Exam Neurological Exam: Alert, Awake - Psychiatric Exam Psychiatric exam: Normal Affect - Skin Skin Exam: Dry, Warm Assessment and Plan - Assessment and Plan (Free Text) Assessment: A 48 year old male who was bought to the ER due to low blood pressure. He was at his PMD when blood pressure was taken. History of aspiration pneumonia, GI bleeding, GI/abdominal surgeries for gastric obstruction,paralytic ileus, ileostomy with reversal, small bowel resection,inguinal hernia repair, hyponatremia,hypotension. Initially admitted to ICU for hypotension and hyponatremia, Stabilzed and transferred to Med/Surg unit. Cardiac consult called today due to tachycardia. Tachycardia secondary to possible dehydration. IV fluids given.Tachycardia resolved.Scheduled for sigmoidoscopy yesterday but cancelled due to junctional heart rate. Plan: EGD/sigmoidoscopy cancelled yesterday due to heart rate of 40's 12 lead EKG showed sinus bradycardia with short NV at 50's, not junctional rhythm compared to previous EKG, normal sinus rhtym with short NV. From cardiac standpoint no absolute contraindication for procedure Cleared for procedure No distress,awake Blood pressure stable Continue IV fluids of NSS at 60 cc/hr Stable cardiac status H/H stable TSH normal GI on consult Continue current treatment Continue current medications Will follow up Plan and treatment discussed with
[2018-07-07 07:08] LABS: HEMOGLOBIN 9.2 g/dL (14.0-18.0); MEAN CELL VOLUME 81.9 fl (80.0-105.0); MEAN CORPUSCULAR HEMOGLOBIN 26.1 pg (25.0-35.0); MEAN CORPUSCULAR HGB CONC 31.8 g/dl (31.0-37.0); MEAN PLATELET VOLUME 9.1 fl (7.0-11.0); RBC 3.53 10^6/uL (3.5-6.1); RED CELL DISTRIBUTION WIDTH 16.7 % (11.5-14.5); WHITE BLOOD COUNT 3.7 10^3/ul (4.5-11.0)
[2018-07-07 07:23] LABS: BLOOD UREA NITROGEN 2 mg/dL (7-21); CALCIUM 7.9 mg/dL (8.4-10.5); GFR NON-AFRICAN AMERICAN > 60
--- NOTE | 2018-07-07 08:47 | PN ---
DATE: 07/06/2018 SUBJECTIVE: The patient is 48-year-old male. The patient was seen and examined on the bedside on 07/06/2018. These progress notes are for 07/06/2018. The patient is looking comfortable. No fever. No chills. No headache. No dizziness. No chest pain. No palpation. The patient is a very poor historian. Endoscopic event noted. I spoke to Dr. Davies about the patient's bradycardic events. Due to bradycardia, he cannot do the procedure. The patient was sent back to telemetry and patient was consulted again. PHYSICAL EXAMINATION: VITAL SIGNS: Temperature 98, pulse 83, respiratory rate 20, blood pressure 153/83, pulse oximetry 97. HEENT: Head normocephalic, atraumatic. Eyes PERRLA. Extraocular muscles intact. Conjunctivae clear. Nose patent. NECK: Supple. No carotid bruit. No JVD or thyromegaly. CHEST: Bilaterally symmetrical. HEART: S1 and S2 positive. LUNGS: Clear to auscultation. ABDOMEN: Soft. Bowel sounds positive. No organomegaly. EXTREMITIES: No edema. No cyanosis. NEUROLOGICAL: The patient is awake and alert. Moving all 4 extremities. No focal deficits. MEDICATIONS: Caltrate, vitamin D, ferrous sulfate, folic acid, heparin sodium, pantoprazole, potassium, thiamine, vitamin B1. LABORATORY DATA: White blood cells 4.5, hemoglobin 9.1, hematocrit 28.2, platelets 224. Sodium 130, potassium 3.4, BUN 5, creatinine 0.5, glucose ASSESSMENT AND PLAN: Mr. Sean Dee, 48-year-old male with anemia, hyponatremia, hypokalemia, history of tachycardia, now today during the scope he produces a bradycardia, so the procedure was not done. Transferred the patient back to telemetry. History of aspiration pneumonia , multiple abdominal surgeries, gastric obstruction, bilateral ileostomy with reversal, small bowel resection, inguinal hernia repair, hyponatremia, hypotension. The patient was admitted to ICU, transferred back to medical floor. Now, he is transferred back to rehab. Gastrointestinal, deep venous thrombosis prophylaxis. The patient need flexible sigmoidoscopy. Seen by flume worker, district associate judge. The patient's procedure was canceled due to new-onset cardiac arrhythmia, asymptomatic. Denies any abdominal pain. Sodium is now within normal limits. The patient has deep venous thrombosis, supposed to be on Coumadin, but holding for procedure. We will follow up. Meme Rey MD KAVYA
--- NOTE | 2018-07-07 09:15 | PN ---
DATE: 07/06/2018 REASON FOR DICTATION: This progress note is an addendum to initial progress note dictated by our nurse practitioner. REASON FOR CONSULTATION: Cardiac evaluation, rule out sick sinus syndrome. The patient is hemodynamically stable. No evidence of arrhythmia noted. The patient is off telemetry now. RECOMMENDATIONS: Discontinue telemetry. Supplement electrolytes. Monitor electrolytes. Increase nutrition support because of patient's severe protein calorie malnutrition. Continue supportive care. No further cardiac workup is planned at this time. status is stable. No evidence of tachybrady syndrome. Continue DVT prophylaxis. Supplement electrolytes as needed. Thank you, Dr. Rey, for providing us the opportunity in taking care of the patient, Sean Dee. Eber Berry MD
[2018-07-07] MEDS: Multivitamin Vitamin B Complex (Nephro-Vite) Tab PO SCH (09:36)
[2018-07-07] MEDS: Mupirocin 2% Ointment 15 GM TUBE TOP SCH ×2 (09:36→18:17)
[2018-07-07] MEDS: Potassium Chloride 20 mEq/15 ml LIQ UD PO SCH ×2 (09:36→18:17)
--- NOTE | 2018-07-07 10:10 | PN ---
DATE: 07/07/2018 ENDOCRINOLOGY FOLLOWUP LOCATION: Room 272. This is a 48-year-old male with recent marked hyponatremia from hypovolemia related to chronic colitis and diarrhea and is now being followed closely for metabolic management. He also underwent a recent ACTH stimulation test, which was actually reported as normal with a second basal cortisol of 7 mcg and a 1-hour stimulation level of 21 mcg/dL. We will concur with the present normal saline infusion as given at this time. No indication for any kind of steroid replacement therapy as we have excluded the presence of adrenal insufficiency or hypoadrenalism. We will obtain serial chemistries and supplement accordingly as needed. We will follow up with you. Silvia Mccann MD
--- NOTE | 2018-07-07 11:01 | CARD ---
APPROVED REPORT Date of service: 07/07/2018 EKG Measurement Heart [id number] TN 92P68 [id number] <Conclusion> Sinus rhythm with short TN NSSTW changes
--- NOTE | 2018-07-07 14:34 | CP.PCM.PN ---
Subjective - Date & Time of Evaluation Date of Evaluation: 07/07/18 Time of Evaluation: 14:34 - Subjective Subjective: Nephrology Consultation Note: Assessment: stable hypovolemic hyponatremia with hypotension likely due to GI fluid loss NAGMA likely due to GI loss hypotension/hypovolemic shock Colitis Anemia ? GI bleed severe hypoalbuminemia with malnourished state Hypokalemia DVT on Coumadin, peptic ulcer disease, multiple episodes of SBO, chronic anemia, and developmental delay Plan No acute need for renal replacement therapy at this time. Maintain hemodynamics stable. Avoid hypotension. Monitor Input/Output, daily weights and serum Na level target correction in serum Na no more than 6-8 meq/24 hrs. no further need of hypertonic saline. not needed samsca at this time continue with NS as IVF. started thiamine, FA and MVI anemia management as per primary team. consider PRBC as needed replete lytes as needed urine studies as ordered reviewed cortisol level. endocrine following. pt s/p ACTH stim test Dose meds/antibiotics for normal GFR. Glycemic control. Further work up/management as per primary team Thanks for allowing me to participate in care of your patient. Will follow patient with you. Please call if any Qs. had d/w team Dr Eulalio Hudson Office: [phone] Chief Complaint; unable Reason for consult: Hyponatremia and acidosis HPI: Pt is a 48 M with hx of DVT on Coumadin, peptic ulcer disease, multiple episodes of SBO, chronic anemia, and developmental delay came with low Bp and diarrhoea, anemia. also found to have acidosis, hyponatremia and renal consult for further management pt unable to provide much significant reliable hx SBP low in 60s at presentation ROS:pt denies SOB/chest pain or urine complaints however limited from pt and unable to obtain full ROS Physical Examination: General Appearance: Comfortable, in no acute respiratory distress, malnourished and ill appearing Vitals reviewed and noted as below Head; Atraumatic, normocephalic ENT: dry oral mucosa. no ulcers. EYES: Pupils are equal, round and reactive to light accommodation. Eye muscles and extraocular movement intact. Sclera is anicteric. Neck; supple no lymphadenopathy, no thyromegaly or bruit Lungs: Normal respiratory rate/effort. Breath sounds bilateral equal and b/l clear Heart: Normal rate. s1s2 normal. No rub or gallop. Extremities: no edema. No varicose veins Neurological: Patient is alert awake follow command. Skin: Warm and dry. Normal turgor. No rash. Palpitation: Normal elasticity for age. superifical skin echymoses over upper extremity noted Abdomen: Abdomen is soft. Bowel sounds +. There is no abdominal tenderness, no guarding/rigidity no organomegaly. old surgical scar + Psych: lack insight. has flat affect. hx of developmental delay MSK: no joint tenderness or swelling. Digits and nails normal, no deformity : kidney or bladder not palpable Labs/imaging reviewed. Past medical history, past surgical history, family history, social history, allergy reviewed and noted as below Family hx: no hx of CKD. Rest non-contributory work up: reviewed Objective - Vital Signs/Intake and Output Vital Signs (last 24 hours): Temp Pulse Resp BP Pulse Ox 97.8 F 59 L 20 96/57 L 96 07/07/18 06:00 07/07/18 06:00 07/07/18 06:00 07/07/18 06:00 07/07/18 06:00 Intake and Output: 07/07/18 07/07/18 06:59 18:59 Intake Total 700 Balance 700 - Medications Medications: Current Medications Calcium Carbonate (Caltrate) 600 mg PO TID [facility] Last Admin: 07/07/18 09:36 Dose: 600 mg Ergocalciferol (Drisdol 50,000 Intl Units Cap) 1 cap PO Q7D [facility] Last Admin: 07/06/18 10:16 Dose: 1 cap Ferrous Gluconate (Fergon) 324 mg PO TID [facility] Last Admin: 07/07/18 09:36 Dose: 324 mg Folic Acid (Folic Acid) 1 mg PO DAILY [facility] Last Admin: 07/07/18 09:36 Dose: 1 mg Heparin Sodium (Porcine) (Heparin) 5,000 units SC Q12 [facility]; Protocol Last Admin: 07/06/18 10:26 Dose: Not Given Sodium Chloride (Sodium Chloride 0.9%) 1,000 mls @ 60 mls/hr IV .[id number] [facility] Last Admin: 07/07/18 03:37 Dose: 60 mls/hr Mupirocin (Bactroban Ointment) 0 gm TOP BID [facility] Last Admin: 09/26/18 09:36 Dose: 1 applic Pantoprazole Sodium (Protonix Ec Tab) 40 mg PO 0600,1600 [facility] Last Admin: 07/07/18 05:38 Dose: 40 mg Potassium Chloride (Potassium Chloride Oral Soln) 20 meq PO BID [facility] Stop: 07/10/18 10:46 Last Admin: 07/07/18 09:36 Dose: 20 meq Thiamine HCl (Vitamin B1 Tab) 100 mg PO DAILY [facility] Last Admin: 07/07/18 09:44 Dose: 100 mg Vitamin B Complex/Vit C/Folic Acid (Nephro-Batsheva) 1 tab PO 0800 [facility] Last Admin: 07/07/18 09:36 Dose: 1 tab - Labs Labs: 07/07/18 06:40 07/07/18 06:40 PT 17.0 SECONDS (9.4-12.5) H 07/06/18 07:34 INR 1.47 07/06/18 07:34 APTT 43.1 Seconds (25.1-36.5) H 07/02/18 10:00
[2018-07-07] MEDS ORDERED: Propofol 10 mg/ml Inj (20 ML) ONE ×2 (17:51→18:25)
[2018-07-07] MEDS ORDERED: Sodium Chloride 0.9% 1,000 ML IV SCH (18:45)
[2018-07-08] MEDS: Pantoprazole 40 mg EC Tab PO SCH ×2 (06:24→15:08)
--- NOTE | 2018-07-08 07:56 | CP.PCM.PN ---
Subjective - Date & Time of Evaluation Date of Evaluation: 07/08/18 Time of Evaluation: 06:40 - Subjective Subjective: No distress,feels okay, awake, feels hungry wanted a sandwich Reason for consultation and follow up: Cardiac evaluation of sinus tachy cardia,History of aspiration pneumonia, GI bleeding, GI/abdominal surgeries for gastric obstruction,paralytic ileus, ileostomy with reversal, small bowel resection,inguinal hernia repair, hyponatremia,hypotension. Seen and examined by me and Dr. Berry Objective - Vital Signs/Intake and Output Vital Signs (last 24 hours): Temp Pulse Resp BP Pulse Ox 97.5 F L 84 14 117/74 97 07/07/18 19:45 07/07/18 19:45 07/07/18 19:45 07/07/18 19:45 07/07/18 19:45 Intake and Output: 07/08/18 07/08/18 06:59 18:59 Intake Total 720 Output Total 750 Balance -30 - Medications Medications: Current Medications Calcium Carbonate (Caltrate) 600 mg PO TID [facility] Last Admin: 07/07/18 18:17 Dose: Not Given Ergocalciferol (Drisdol 50,000 Intl Units Cap) 1 cap PO Q7D [facility] Last Admin: 07/06/18 10:16 Dose: 1 cap Ferrous Gluconate (Fergon) 324 mg PO TID [facility] Last Admin: 07/07/18 18:17 Dose: Not Given Folic Acid (Folic Acid) 1 mg PO DAILY [facility] Last Admin: 07/07/18 09:36 Dose: 1 mg Heparin Sodium (Porcine) (Heparin) 5,000 units SC Q12 [facility]; Protocol Last Admin: 07/06/18 10:26 Dose: Not Given Sodium Chloride (Sodium Chloride 0.9%) 1,000 mls @ 60 mls/hr IV .[id number] [facility] Last Admin: 07/07/18 03:37 Dose: 60 mls/hr Sodium Chloride (Sodium Chloride 0.9%) 1,000 mls @ 100 mls/hr IV .Q10H [facility] Mupirocin (Bactroban Ointment) 0 gm TOP BID [facility] Last Admin: 07/07/18 18:17 Dose: Not Given Pantoprazole Sodium (Protonix Ec Tab) 40 mg PO 0600,1600 [facility] Last Admin: 07/08/18 06:24 Dose: 40 mg Potassium Chloride (Potassium Chloride Oral Soln) 20 meq PO BID [facility] Stop: 07/10/18 10:46 Last Admin: 07/07/18 18:17 Dose: Not Given Thiamine HCl (Vitamin B1 Tab) 100 mg PO DAILY [facility] Last Admin: 07/07/18 09:44 Dose: 100 mg Vitamin B Complex/Vit C/Folic Acid (Nephro-Batsheva) 1 tab PO 0800 [facility] Last Admin: 07/07/18 09:36 Dose: 1 tab - Labs Labs: 07/07/18 06:40 07/07/18 06:40 PT 17.0 SECONDS (9.4-12.5) H 07/06/18 07:34 INR 1.47 07/06/18 07:34 APTT 43.1 Seconds (25.1-36.5) H 07/02/18 10:00 - Constitutional Appears: No Acute Distress - Head Exam Head Exam: NORMOCEPHALIC - Eye Exam Eye Exam: Normal appearance - ENT Exam ENT Exam: Mucous Membranes Moist - Respiratory Exam Respiratory Exam: Clear to Ausculation Bilateral, NORMAL BREATHING PATTERN - Cardiovascular Exam Cardiovascular Exam: +S1, +S2 - GI/Abdominal Exam GI & Abdominal Exam: Soft, Normal Bowel Sounds - Neurological Exam Neurological Exam: Alert, Awake - Psychiatric Exam Psychiatric exam: Normal Affect - Skin Skin Exam: Dry, Warm Assessment and Plan - Assessment and Plan (Free Text) Assessment: A 48 year old male who was bought to the ER due to low blood pressure. He was at his PMD when blood pressure was taken. History of aspiration pneumonia, GI bleeding, GI/abdominal surgeries for gastric obstruction,paralytic ileus, ileostomy with reversal, small bowel resection,inguinal hernia repair, hyponatremia,hypotension. Initially admitted to ICU for hypotension and hyponatremia, Stabilzed and transferred to Med/Surg unit. Cardiac consult called today due to tachycardia. Tachycardia secondary to possible dehydration. IV fluids given.Tachycardia resolved.Scheduled for sigmoidoscopy but cancelled due to junctional heart rate. 12 lead EKG showed sinus bradycardia with short GA at 50's, not junctional rhythm, ompared to previous EKG, normal sinus rhtym with short GA. From cardiac standpoint no absolute contraindication for procedure, Cleared for procedure. Status post EGD/sigmoidoscopy yesterday. Plan: No distress,awake, hungry wanted a sandwich Status post EGD/sigmoidoscopy yesterday small bowel erythema, colon anastomosic stricture and ulcer, history of post subtotal gastrectomy and small bowel resection Heart rate 70's/min,Heart rate and Blood pressure stable Continue IV fluids for hydration Recent lab Sodium 131, Chloride 107- improved from baseline Stable cardiac status H/H stable TSH normal GI on consult, work up in progress Will start Pradaxa for history of DVT Continue current treatment Continue current medications Will follow up Plan and treatment discussed with
--- NOTE | 2018-07-08 08:24 | PN ---
DATE: 07/07/2018 SUBJECTIVE: Patient is a 48-year-old male. Patient was seen and examined at the bedside on 07/07/2018, earlier in the morning, looking comfortable. No nausea, vomiting, or diarrhea. No hematuria, hematochezia. No swelling of the legs. No chest pain, no palpitation. No headache. No dizziness. Patient is a poor historian. PHYSICAL EXAMINATION: VITAL SIGNS: Temperature 98.1, pulse 67, respiratory rate 20, blood pressure 107/46. HEENT: Head, normocephalic, atraumatic. Eyes, PERRLA. Extraocular muscles intact. Conjunctiva clear. Nose patent. Mucous membranes moist. NECK: Supple. No carotid bruit. No JVD or thyromegaly. CHEST: Bilaterally symmetrical. HEART: S1, S2 positive. LUNGS: Clear to auscultation. ABDOMEN: Soft. Bowel sounds positive. No organomegaly. EXTREMITIES: No edema. No cyanosis. NEUROLOGICAL: Patient is awake and alert. Moving all four extremities. No focal deficits. MEDICATIONS: Caltrate, vitamin D, Fergon, folic acid, heparin, sodium chloride, Bactroban, Protonix, potassium, thiamine, vitamin B1. LABORATORY DATA: White blood cells 3.6, hemoglobin 9.4, hematocrit 29.7, platelet 223. Sodium 132, potassium 4.1, BUN 3, creatinine 0.5, glucose 96. ASSESSMENT AND PLAN: Mr. Sean Dee is a 48-year-old male with leukocytosis, anemia, hypoglycemia, history of hypotension, gastrointestinal bleeding, gastric surgeries, obstruction, failed ileostomy with reversal, small bowel resection, inguinal hernia repair, hyponatremia, hypotension. Patient was admitted in the ICU, transferred to medical floor, started tachycardia, was transferred to telemetry, improved. Was transferred to medical floor, went for scope. Patient had tachycardia. Procedure was canceled. Cardiology consult was called. After stabilizing patient, Discussion done with nurse practitioner. Patient went for esophagogastroduodenoscopy and sigmoidoscopy. On subtotal gastrectomy, small bowel erythema, colon anastomotic stricture and ulcers. Procedure was done by Dr. Davies. Continue present treatment. Seen by the plush weaver for electrolyte imbalance. Out of bed to physical therapy. We will follow up. Meme Rey MD [facility] # [id number] KAVYA
--- NOTE | 2018-07-08 08:50 | PN ---
DATE: 07/07/2018 TYPE OF DICTATION: This is an addendum of the initial progress note dictated by our nurse practitioner. The patient yesterday was found to be bradycardic; though the patient is stable, no further cardiac workup is planned at this time. EKG shows sinus bradycardia with short MA interval. The patient had echocardiography on 07/18/2016 that shows ejection fraction 55%-60%, mild tricuspid regurgitation, mild pulmonary insufficiency, no pericardial effusion. The patient has been cleared from Cardiology point of view to go for endoscopy and we will get another repeat EKG. We will follow with you. History as mentioned of hernia repair, history of ileostomy, history of gastric obstruction and mentally mildly challenged. No absolute contraindication, no evidence of arrhythmia, no evidence of congestive heart failure, no evidence of angina. The patient is okay to go with moderate risk because of underlying comorbidity. We will follow with you. No absolute contraindication for endoscopy. Thank you Dr. Rey for providing us the opportunity in taking care of the patient, Sean Dee. Eber Berry MD
--- NOTE | 2018-07-08 09:02 | CP.PCM.PN ---
<Eros Carter - Last Filed: 07/08/18 10:01> Subjective - Date & Time of Evaluation Date of Evaluation: 07/08/18 Time of Evaluation: 08:59 - Subjective Subjective: GI Fellow PGY4. Discussed with nursing and no signs of bleeding. Patient is tolerating diet. Denies abdominal pain. Objective - Vital Signs/Intake and Output Vital Signs (last 24 hours): Temp Pulse Resp BP Pulse Ox 97.5 F L 84 14 117/74 97 07/07/18 19:45 07/07/18 19:45 07/07/18 19:45 07/07/18 19:45 07/07/18 19:45 Intake and Output: 07/08/18 07/08/18 06:59 18:59 Intake Total 720 Output Total 750 Balance -30 - Medications Medications: Current Medications Calcium Carbonate (Caltrate) 600 mg PO TID [facility] Last Admin: 07/07/18 18:17 Dose: Not Given Ergocalciferol (Drisdol 50,000 Intl Units Cap) 1 cap PO Q7D [facility] Last Admin: 07/06/18 10:16 Dose: 1 cap Ferrous Gluconate (Fergon) 324 mg PO TID [facility] Last Admin: 07/07/18 18:17 Dose: Not Given Folic Acid (Folic Acid) 1 mg PO DAILY [facility] Last Admin: 07/07/18 09:36 Dose: 1 mg Heparin Sodium (Porcine) (Heparin) 5,000 units SC Q12 [facility]; Protocol Last Admin: 07/06/18 10:26 Dose: Not Given Sodium Chloride (Sodium Chloride 0.9%) 1,000 mls @ 60 mls/hr IV .[id number] [facility] Last Admin: 07/07/18 03:37 Dose: 60 mls/hr Sodium Chloride (Sodium Chloride 0.9%) 1,000 mls @ 100 mls/hr IV .Q10H [facility] Mupirocin (Bactroban Ointment) 0 gm TOP BID [facility] Last Admin: 07/07/18 18:17 Dose: Not Given Pantoprazole Sodium (Protonix Ec Tab) 40 mg PO 0600,1600 [facility] Last Admin: 07/08/18 06:24 Dose: 40 mg Potassium Chloride (Potassium Chloride Oral Soln) 20 meq PO BID [facility] Stop: 07/10/18 10:46 Last Admin: 07/07/18 18:17 Dose: Not Given Thiamine HCl (Vitamin B1 Tab) 100 mg PO DAILY [facility] Last Admin: 07/07/18 09:44 Dose: 100 mg Vitamin B Complex/Vit C/Folic Acid (Nephro-Batsheva) 1 tab PO 0800 [facility] Last Admin: 07/07/18 09:36 Dose: 1 tab - Labs Labs: 07/07/18 06:40 07/07/18 06:40 PT 17.0 SECONDS (9.4-12.5) H 07/06/18 07:34 INR 1.47 07/06/18 07:34 APTT 43.1 Seconds (25.1-36.5) H 07/02/18 10:00 - Constitutional Appears: Non-toxic, No Acute Distress, Chronically Ill - Eye Exam Eye Exam: Normal appearance - ENT Exam ENT Exam: Mucous Membranes Moist - Respiratory Exam Respiratory Exam: Clear to Ausculation Bilateral, NORMAL BREATHING PATTERN - Cardiovascular Exam Cardiovascular Exam: REGULAR RHYTHM - GI/Abdominal Exam GI & Abdominal Exam: Soft, Normal Bowel Sounds. absent: Tenderness - Extremities Exam Extremities Exam: Normal Inspection - Neurological Exam Neurological Exam: Alert, Awake, Oriented x3 - Psychiatric Exam Psychiatric exam: Normal Affect, Normal Mood - Skin Skin Exam: Dry, Normal Color Assessment and Plan - Assessment and Plan (Free Text) Assessment: 48 year old male with a past medical history significant for recent DVT (08/2017) on Coumadin, GERD with perforated ulcers, multiple episodes of SBO, chronic anemia, and developmental delay who presented from his hematologists office after he was found to be hypotensive with SBP in 60's. GI was consulted for chronic diarrhea and abdominal pain. Plan: -EGD 07/08/18 normal with expected surgical changes -Colonoscopy 07/07/18 - anastomosis with ulceration and bleeding. Bleeding improved with topical epi spray. -CT Abdomen/Pelvis showed fluid throughout the colon, a moderate amount of stool in the rectum, no evidence of small bowel obstruction and a suture line seen at the junction of the sigmoid and rectum with narrowing of the colon in this region -Check H/H today. -PPI daily ok - Soft diet ok. - OK to d/c per GI if Hb stable today. <Cristiane Davies V - Last Filed: 07/09/18 00:05> Objective - Vital Signs/Intake and Output Vital Signs (last 24 hours): Temp Pulse Resp BP Pulse Ox 98.2 F 83 19 90/54 L 96 07/08/18 17:41 07/08/18 17:41 07/08/18 17:41 07/08/18 17:41 07/08/18 17:41 - Labs Labs: 07/08/18 09:30 07/07/18 06:40 PT 13.4 SECONDS (9.4-12.5) H 07/08/18 09:30 INR 1.16 07/08/18 09:30 APTT 43.1 Seconds (25.1-36.5) H 07/02/18 10:00 Attending/Attestation - Attestation I have personally seen and examined this patient.: Yes I have fully participated in the care of the patient.: Yes I have reviewed all pertinent clinical information, including history, physical exam and plan: Yes Notes (Text): This is an addendum to GI progress report dictated by the GI Fellow.The patient was seen and examined earlier. Medical records, lab studies, imagings were reviewed. Last 24 hours events reviewed. Agreed with the above treatment plan as outlined in GI Fellow 's notes with the addition of the following Anestomotic ulceration with friability Can start anticoagulation with close monitoring of Hb Patient discussed with Dr. Murillo 07/09/18 00:03
[2018-07-08] MEDS: Multivitamin Vitamin B Complex (Nephro-Vite) Tab PO SCH (09:50)
[2018-07-08] MEDS: Potassium Chloride 20 mEq/15 ml LIQ UD PO SCH ×2 (09:50→18:07)
[2018-07-08 10:06] LABS: MEAN CELL VOLUME 82.6 fl (80.0-105.0); MEAN CORPUSCULAR HGB CONC 31.4 g/dl (31.0-37.0); MEAN PLATELET VOLUME 9.2 fl (7.0-11.0); RBC 3.85 10^6/uL (3.5-6.1); RED CELL DISTRIBUTION WIDTH 16.9 % (11.5-14.5)
[2018-07-08 10:08] LABS: INR 1.16; PROTHROMBIN TIME 13.4 SECONDS (9.4-12.5)
--- NOTE | 2018-07-08 15:04 | CP.PCM.PN ---
Subjective - Date & Time of Evaluation Date of Evaluation: 07/08/18 Time of Evaluation: 15:03 - Subjective Subjective: Nephrology Consultation Note: Assessment: stable hypovolemic hyponatremia with hypotension likely due to GI fluid loss NAGMA likely due to GI loss hypotension/hypovolemic shock Colitis Anemia ? GI bleed severe hypoalbuminemia with malnourished state Hypokalemia DVT on Coumadin, peptic ulcer disease, multiple episodes of SBO, chronic anemia, and developmental delay Plan No acute need for renal replacement therapy at this time. Maintain hemodynamics stable. Avoid hypotension. Monitor Input/Output, daily weights and serum Na level target correction in serum Na no more than 6-8 meq/24 hrs. no further need of hypertonic saline. not needed samsca at this time can d/c IVF. pt with good oral intake. BP stable and no further diarrhoea reported started thiamine, FA and MVI anemia management as per primary team. consider PRBC as needed replete lytes as needed urine studies as ordered reviewed cortisol level. endocrine following. pt s/p ACTH stim test Dose meds/antibiotics for normal GFR. Glycemic control. Further work up/management as per primary team Thanks for allowing me to participate in care of your patient. Will follow patient with you. Please call if any Qs. had d/w team Dr Eulalio Hudson Office: [phone] Chief Complaint; none Reason for consult: Hyponatremia and acidosis HPI: Pt is a 48 M with hx of DVT on Coumadin, peptic ulcer disease, multiple episodes of SBO, chronic anemia, and developmental delay came with low Bp and diarrhoea, anemia. also found to have acidosis, hyponatremia and renal consult for further management pt unable to provide much significant reliable hx SBP low in 60s at presentation ROS:pt denies SOB/chest pain or urine complaints however limited from pt and unable to obtain full ROS Physical Examination: General Appearance: Comfortable, in no acute respiratory distress, malnourished and ill appearing Vitals reviewed and noted as below Head; Atraumatic, normocephalic ENT: dry oral mucosa. no ulcers. EYES: Pupils are equal, round and reactive to light accommodation. Eye muscles and extraocular movement intact. Sclera is anicteric. Neck; supple no lymphadenopathy, no thyromegaly or bruit Lungs: Normal respiratory rate/effort. Breath sounds bilateral equal and b/l clear Heart: Normal rate. s1s2 normal. No rub or gallop. Extremities: no edema. No varicose veins Neurological: Patient is alert awake follow command. Skin: Warm and dry. Normal turgor. No rash. Palpitation: Normal elasticity for age. superifical skin echymoses over upper extremity noted Abdomen: Abdomen is soft. Bowel sounds +. There is no abdominal tenderness, no guarding/rigidity no organomegaly. old surgical scar + Psych: lack insight. has flat affect. hx of developmental delay MSK: no joint tenderness or swelling. Digits and nails normal, no deformity : kidney or bladder not palpable Labs/imaging reviewed. Past medical history, past surgical history, family history, social history, allergy reviewed and noted as below Family hx: no hx of CKD. Rest non-contributory work up: reviewed Objective - Vital Signs/Intake and Output Vital Signs (last 24 hours): Temp Pulse Resp BP Pulse Ox 97.8 F 74 20 94/55 L 94 L 07/08/18 06:00 07/08/18 06:00 07/08/18 06:00 07/08/18 06:00 07/08/18 06:00 Intake and Output: 07/08/18 07/08/18 06:59 18:59 Intake Total 720 Output Total 750 Balance -30 - Medications Medications: Current Medications Calcium Carbonate (Caltrate) 600 mg PO TID [facility] Last Admin: 07/08/18 09:49 Dose: 600 mg Dabigatran (Pradaxa) 75 mg PO BID [facility]; Protocol Last Admin: 07/08/18 10:57 Dose: 75 mg Ergocalciferol (Drisdol 50,000 Intl Units Cap) 1 cap PO Q7D [facility] Last Admin: 07/06/18 10:16 Dose: 1 cap Ferrous Gluconate (Fergon) 324 mg PO TID [facility] Last Admin: 07/08/18 09:50 Dose: 324 mg Folic Acid (Folic Acid) 1 mg PO DAILY [facility] Last Admin: 07/08/18 09:50 Dose: 1 mg Sodium Chloride (Sodium Chloride 0.9%) 1,000 mls @ 60 mls/hr IV .[id number] [facility] Last Admin: 07/07/18 03:37 Dose: 60 mls/hr Sodium Chloride (Sodium Chloride 0.9%) 1,000 mls @ 100 mls/hr IV .Q10H [facility] Mupirocin (Bactroban Ointment) 0 gm TOP BID [facility] Last Admin: 07/07/18 18:17 Dose: Not Given Pantoprazole Sodium (Protonix Ec Tab) 40 mg PO 0600,1600 [facility] Last Admin: 07/08/18 06:24 Dose: 40 mg Potassium Chloride (Potassium Chloride Oral Soln) 20 meq PO BID [facility] Stop: 07/10/18 10:46 Last Admin: 07/08/18 09:50 Dose: 20 meq Thiamine HCl (Vitamin B1 Tab) 100 mg PO DAILY [facility] Last Admin: 07/08/18 09:50 Dose: 100 mg Vitamin B Complex/Vit C/Folic Acid (Nephro-Batsheva) 1 tab PO 0800 [facility] Last Admin: 07/08/18 09:50 Dose: 1 tab - Labs Labs: 07/08/18 09:30 07/07/18 06:40 PT 13.4 SECONDS (9.4-12.5) H 07/08/18 09:30 INR 1.16 07/08/18 09:30 APTT 43.1 Seconds (25.1-36.5) H 07/02/18 10:00
[2018-07-08 17:42] VITALS: BP 90/54; PULSE 83; RESP 19; TEMP 98.2; O2SAT 96
--- NOTE | 2018-07-08 20:22 | PN ---
DATE: 07/08/2018 ENDOCRINOLOGY FOLLOWUP NOTE LOCATION: In room 377. This is a 48-year-old male with recent admission for marked hypovolemic hyponatremia with underlying chronic diarrhea and currently undergoing GI workup as noted and is also being followed closely for metabolic management. His latest chemistry showed a BUN of 2, sodium 131, potassium 4, chloride 107, CO2 of 24, glucose 57 and creatinine 0.5. His cortisol value has been actually reported as normal with a basal cortisol of 7.8 and a 1-hour stimulation test of 21 mcg/dL. Excluding the possibility of hypoadrenalism or adrenal insufficiency as this is a Cortrosyn stimulation test undertaken thereof. We will obtain serial chemistries and supplement accordingly as needed. We will follow. Silvia Mccann MD
--- NOTE | 2018-07-09 08:32 | PN ---
DATE: 07/08/2018 REASON FOR CONSULTATION: This note is an addendum to the initial progress note dictated this morning by nurse practitioner. The patient had a colonoscopy done yesterday that cleared. Because of the history of DVT, suggest to start Coumadin, but the patient is very compliance, discussed with Dr. Rey, is probably Pradaxa as per Hematology/Oncology. We will start Pradaxa for DVT senior care treatment as Pradaxa 75 mg p.o. b.i.d. Discussed with the nurse practitioner, as the patient is going to be discharged today with Pradaxa 75 p.o. b.i.d. CVS status is stable. Thank you, Dr. Rey, for providing us the opportunity in taking care of the patient, Sean Dee. Eber Berry MD
--- NOTE | 2018-07-10 07:33 | DS ---
CHIEF COMPLAINT: Diarrhea, low blood pressure. HISTORY OF PRESENT ILLNESS: Mr. Sean Dee is a 48-year-old male, with past medical history of GI bleeding, anemia, shortness of breath, DVT, PE, came to the emergency room via EMS for low blood pressure, intractable diarrhea. The patient was seen in his peanut roaster's office, Dr. Murillo, for the followup when his systolic blood pressure dropped to 60s, and she called EMS immediately and transferred the patient to [facility]. Upon arrival, the patient's blood pressure was 60/46, heart rate was 99. We admitted the patient. Did CAT scan of abdomen and pelvis. Extremity ultrasound was done. Seen by Dr. Hassan for cardiac arrhythmia during hospitalization. In between, the patient was having tachycardia; but when he went to the procedure, he went to bradycardia and secondary school teacher took care of that. Seen by GI, Dr. Davies. He did procedure. The patient's sodium was very low. Seen by fish pitcher. Dr. Murillo is the patient's peanut roaster. The patient's blood pressure got better. He was eating very well. His diarrhea improved. Discharged home with his sister, Iman. Discussion done with nurse practitioner and director educational radio, and they spoke to the patient's sister, Iman. Plan is patient will start daycare center very next day. The patient is mentally challenged. He has routine to go to daycare center during the day hours. PAST MEDICAL HISTORY: Aspiration pneumonia, multiple scarring on abdominal wall due to multiple surgeries by Dr. Andres Henson, gastric outlet obstruction, paralytic ileus, GERD, GI bleeding, ileostomy and reversal, small bowel resection, inguinal hernia repair. FAMILY HISTORY: Unknown because he was adopted. HABITS: Never smoked. No drugs. No ethanol. ALLERGIES: THE PATIENT IS NOT ALLERGIC WITH ANY MEDICATIONS. REVIEW OF SYSTEMS: The patient was seen and examined on the bedside, looking comfortable, tolerating food very well. No nausea, vomiting, or diarrhea. No fever. No chills. No headache. No signs of bleeding. Denies abdominal pain. PHYSICAL EXAMINATION: VITAL SIGNS: Temperature 97.5, pulse 54, respiratory rate 14, blood pressure 117/74, pulse oximetry 97%. HEENT: Head: Normocephalic, atraumatic. Eyes: PERRLA. Extraocular muscles intact. Conjunctivae clear. Nose patent. Mucous membrane moist. NECK: Supple. No carotid bruit. No JVD or thyromegaly. CHEST: Bilaterally symmetrical. HEART: S1 and S2 positive. LUNGS: Clear to auscultation. ABDOMEN: Soft. Bowel sounds positive. No organomegaly. EXTREMITIES: No edema. No cyanosis. NEUROLOGIC: The patient is awake and alert. Moving all 4 extremities. No focal deficit. MEDICATIONS: Caltrate, vitamin D, ferrous gluconate, folic acid, heparin, pantoprazole, potassium, thiamine, vitamin B complex. LABORATORY DATA: White blood cells 3.7, hemoglobin 9.2, hematocrit 28.9, platelets 211. Sodium 131, potassium 4. BUN 2, creatinine 0.5. Glucose 57. ASSESSMENT AND PLAN: Mr. Sean Dee is a 48-year-old male with leukopenia; anemia; hyponatremia; hypoglycemia; history of deep venous thrombosis, was on Coumadin; gastroesophageal reflux disease with perforated ulcers; multiple episodes of small bowel obstruction; chronic anemia and blood transfusion; developmental delay; history of hypotension, systolic blood pressure was in the 60s; acute diarrhea on top of chronic. EGD was done, normal with expected surgical changes. Colonoscopy done showed anastomosis with ulceration and bleeding. Bleeding improved with topical epi spray. CT of abdomen and pelvis done and reviewed by me. The patient got PPI, soft diet. GI cleared the patient for discharge. At the end of the day, the patient has anastomotic ulceration with friability. GI gave permission to start anticoagulation with close monitoring of hemoglobin. Dr. Davies had discussion done with Dr. Murillo about starting blood thinner. The patient was seen by Dr. Silvia Mccann, secondary school teacher, and GI. Sodium improved, electrolytes improved. According to the artificial glass eye maker, the patient's cortisol values have been actually reported normal at baseline. We consulted her to rule out hypoadrenalism or adrenal insufficiency. The patient was discharged home with p.o. blood thinner and follow up with Dr. Murillo, my office, and GI. Meme Rey MD
== END 2018-07-08 19:49 | disposition home or self-care (01) | DRG 871 ==
LOC: ED 17:26 → ERH 22:07 → 5RNO 06-29 02:30 → 2RSO 07-03 13:18 → 3RSO 07-05 19:15
PROVIDERS: ADMIT Internal Medicine; ATTEND Internal Medicine
PROC: 30233N1 Transfusion of Nonautologous Red Blood Cells into Peripheral Vein, Percutaneous Approach (ICD-10-PCS; principal; 2018-06-30)
PROC: 0DJD8ZZ Inspection of Lower Intestinal Tract, Via Natural or Artificial Opening Endoscopic (ICD-10-PCS; 2018-07-07)
PROC: 0DJ08ZZ Inspection of Upper Intestinal Tract, Via Natural or Artificial Opening Endoscopic (ICD-10-PCS; 2018-07-07 16:00)
DX: R57.1 Hypovolemic shock (principal); K28.4 Chronic or unspecified gastrojejunal ulcer with hemorrhage; E87.1 Hypo-osmolality and hyponatremia; E87.2 Acidosis; E46 Unspecified protein-calorie malnutrition; R64 Cachexia; Z68.1 Body mass index [BMI] 19.9 or less, adult; D50.0 Iron deficiency anemia secondary to blood loss (chronic); K52.9 Noninfective gastroenteritis and colitis, unspecified; E86.0 Dehydration; E87.6 Hypokalemia; F79 Unspecified intellectual disabilities; E87.8 Other disorders of electrolyte and fluid balance, not elsewhere classified; E83.51 Hypocalcemia; K21.9 Gastro-esophageal reflux disease without esophagitis; E88.09 Other disorders of plasma-protein metabolism, not elsewhere classified; R79.1 Abnormal coagulation profile; R00.0 Tachycardia, unspecified; D69.6 Thrombocytopenia, unspecified; E55.9 Vitamin D deficiency, unspecified; E83.39 Other disorders of phosphorus metabolism; I95.89 Other hypotension; K27.9 Peptic ulcer, site unspecified, unspecified as acute or chronic, without hemorrhage or perforation; Q90.9 Down syndrome, unspecified; Z79.01 Long term (current) use of anticoagulants; Z86.718 Personal history of other venous thrombosis and embolism; Z86.711 Personal history of pulmonary embolism; Z87.01 Personal history of pneumonia (recurrent)

== ENCOUNTER 2018-07-17 15:39 | Inpatient (IN) | payer MEDICAID, MEDICARE ==
[2018-07-17 15:39] VITALS: BMI 19.5
--- NOTE | 2018-07-17 16:26 | ED PDOC ---
Arrival/HPI - General Chief Complaint: Male Genitourinary Time Seen by Provider: 07/17/18 16:06 Historian: Patient, Family (sister) - History of Present Illness Narrative History of Present Illness (Text): 07/17/18 16:23 48 year old male, whose past medical history includes colostomy, ileostomy, anemia, colitis, and mental retardation, who presents to the Emergency department complaining of swollen testicles and a swollen rt leg. Patient's sister denies any fevers, chills, chest pain, shortness of breath, nausea, vomiting, diarrhea, back pain, neck pain, headache, dizziness, or any other complaint. PMD: Dr. Rey Symptom Onset: Gradual Symptom Course: Unchanged Activities at Onset: Light Context: Home Past Medical History - Provider Review Nursing Documentation Reviewed: Yes - Infectious Disease Hx of Infectious Diseases: None - Tetanus Immunization Tetanus Immunization: Unknown - Cardiac Hx Cardiac Disorders: Yes - Pulmonary Hx Respiratory Disorders: Yes Other/Comment: aspiration pneumonia - Neurological Other/Comment: As per patients family member mental retardation. - HEENT Hx HEENT Disorder: No - Renal Hx Renal Disorder: No - Endocrine/Metabolic Hx Endocrine Disorders: No - Hematological/Oncological Hx Blood Transfusions: No Hx Blood Transfusion Reaction: No - Integumentary Hx Dermatological Disorder: Yes Other/Comment: MULTIPLE SCARRING TO ABDOMINAL AREA FROM MULTIPLE ABDOMINAL SURGERIES - Musculoskeletal/Rheumatological Hx Falls: Yes - Gastrointestinal Hx Gastrointestinal Disorders: Yes (gastric outlet obstruction,paralytic ileus,gerd,gi bleed,ileostomy-reversal) - Genitourinary/Gynecological Hx Genitourinary Disorders: No - Psychiatric Hx Emotional Abuse: No Hx Physical Abuse: No Hx Substance Use: No - Past Surgical History Past Surgical History: Non-Contributing - Surgical History Other/Comment: small bowel resection. inguinal hernia repair - Anesthesia Hx Anesthesia Reactions: No Hx Malignant Hyperthermia: No - Suicidal Assessment Feels Threatened In Home Enviroment: No Family/Social History - Physician Review Nursing Documentation Reviewed: Yes Family/Social History: Unknown Family HX Smoking Status: Never Smoked Hx Alcohol Use: No Hx Substance Use: No Hx Substance Use Treatment: No Allergies/Home Meds Allergies/Adverse Reactions: Allergies No Known Allergies Allergy (Verified 11/27/17 17:29) Review of Systems - Physician Review All systems were reviewed & negative as marked: Yes - Review of Systems Constitutional: Normal Eyes: Normal ENT: Normal Respiratory: Normal. absent: SOB, Cough Cardiovascular: Normal. absent: Chest Pain Gastrointestinal: Normal Genitourinary Male: Other (swollen testicles). absent: Dysuria, Frequency Musculoskeletal: Other (rt leg swelling). absent: Back Pain, Neck Pain Skin: Other (errythema on buttox). absent: Rash Neurological: Normal Endocrine: Normal Hemo/Lymphatic: Normal Psychiatric: Normal Physical Exam Vital Signs Reviewed: Yes Vital Signs Temp Pulse Resp BP Pulse Ox 07/17/18 16:13 97.8 F 80 20 99/63 L 100 Temperature: Afebrile Blood Pressure: Hypotensive Pulse: Regular Respiratory Rate: Normal Appearance: Positive for: Well-Appearing, Non-Toxic, Comfortable Pain Distress: None Mental Status: Positive for: Alert and Oriented X 3 - Systems Exam Head: Present: Atraumatic, Normocephalic Pupils: Present: PERRL Extroacular Muscles: Present: EOMI Conjunctiva: Present: Normal Mouth: Present: Moist Mucous Membranes Neck: Present: Normal Range of Motion Respiratory/Chest: Present: Clear to Auscultation, Good Air Exchange. No: Respiratory Distress, Accessory Muscle Use Cardiovascular: Present: Regular Rate and Rhythm, Normal S1, S2. No: Murmurs Abdomen: Present: Tenderness. No: Distention, Peritoneal Signs Genitourinary Male: Present: Testicle Tenderness, Testicle Swelling (2+ pitting edema). No: Penile Swelling, Prostate Tenderness Back: Present: Normal Inspection Upper Extremity: Present: Normal Inspection. No: Cyanosis, Edema Lower Extremity: Present: Normal Inspection. No: Edema Neurological: Present: GCS=15, CN II-XII Intact, Speech Normal Skin: Present: Warm, Dry, Normal Color. No: Rashes Psychiatric: Present: Alert, Oriented x 3, Normal Insight, Normal Concentration Medical Decision Making ED Course and Treatment: 07/17/18 16:27 Impression: 48 year old male presents to the emergency department complaining of testicular swelling and rt leg swelling. Plan: -- VBG -- Labs -- Troponin -- Urinalysis -- US lower extremity vein bilater -- Reassess and disposition Progress Notes: 07/17/18 20:00 AXR showed possible air fluid levels, CT abd/pelvis ordered. Abdomen is soft and not tender. No abdominal pain. Signed out to Dr. Ambrosio to f/u Testicular sono, CT abd/pelv, revaluate and disposition. - Scribe Statement The provider has reviewed the documentation as recorded by the Scribe Roma Garcia All medical record entries made by the Scribe were at my direction and personally dictated by me. I have reviewed the chart and agree that the record accurately reflects my personal performance of the history, physical exam, medical decision making, and the department course for this patient. I have also personally directed, reviewed, and agree with the discharge instructions and disposition. Disposition/Present on Arrival - Present on Arrival Any Indicators Present on Arrival: No History of DVT/PE: No History of Uncontrolled Diabetes: No Urinary Catheter: No History of Decub. Ulcer: No History Surgical Site Infection Following: None - Disposition Have Diagnosis and Disposition been Completed?: No Diagnosis: Testicular swelling, Leg swelling Disposition Time: 20:03 Condition: FAIR Referrals: Meme Rey MD [Primary Care Provider] - Follow up with primary Forms: [employer] ([place])
[2018-07-17 17:50] LABS: VENOUS BLOOD GAS BASE EXCESS -3.3 mmol/L (0.0-2.0); VENOUS BLOOD GAS PO2 26 mm/Hg (30-55); VENOUS BLOOD PH 7.31 (7.32-7.43)
[2018-07-17 17:51] LABS: BASO # 0.02 K/mm3 (0.0-2.0); BASO % 0.5 % (0.0-3.0); EOS # 0.1 (0.0-0.7); EOS % 1.8 % (1.5-5.0); GRAN # 2.99 (1.4-6.5); GRAN % 68.3 % (50.0-68.0); HEMOGLOBIN 9.5 g/dL (14.0-18.0); LYMPH # 0.9 (1.2-3.4); LYMPH % 20.3 % (22.0-35.0); MEAN CELL VOLUME 81.1 fl (80.0-105.0); MEAN PLATELET VOLUME 9.2 fl (7.0-11.0); MONO # 0.4 (0.1-0.6); MONO % 9.1 % (1.0-6.0); RBC 3.66 10^6/uL (3.5-6.1); RED CELL DISTRIBUTION WIDTH 17.3 % (11.5-14.5); WHITE BLOOD COUNT 4.4 10^3/ul (4.5-11.0)
[2018-07-17 17:55] LABS: INR 1.21; PARTIAL THROMBOPLASTIN TIME 32.5 Seconds (25.1-36.5); PROTHROMBIN TIME 13.9 SECONDS (9.4-12.5)
[2018-07-17 18:07] LABS: B-TYPE NATRIURETIC PEPTIDE 1040 pg/mL (0-450); TROPONIN I < 0.01 ng/mL
[2018-07-17 18:55] LABS: ALB/GLOB RATIO 0.8 (1.1-1.8); ALBUMIN 2.2 g/dL (3.0-4.8); ALT/SGPT 37 U/L (7-56); AST/SGOT 28 U/L (17-59); BLOOD UREA NITROGEN 13 mg/dL (7-21); CALCIUM 7.8 mg/dL (8.4-10.5); GFR NON-AFRICAN AMERICAN > 60
[2018-07-17] MEDS ORDERED: Sodium Chloride 0.9% 1,000 ML IV STA (20:00)
[2018-07-17] MEDS ORDERED: Piperacillin/Tazobact 3.375 gm 100 ML IV STA (20:18)
[2018-07-17] MEDS ORDERED: Vancomycin 1 gm/D5W 200 ml 1 GM/200 ML BAG IV STA (20:18)
[2018-07-17] MEDS ORDERED: Potassium Chloride 20 mEq ER Tab PO STA (20:18)
--- NOTE | 2018-07-17 20:21 | ED PDOC ---
Physical Exam Vital Signs Reviewed: Yes Vital Signs Temp Pulse Resp BP Pulse Ox 07/17/18 16:13 97.8 F 80 20 99/63 L 100 Temperature: Afebrile Blood Pressure: Hypotensive Pulse: Regular Respiratory Rate: Normal Appearance: Positive for: Well-Appearing, Non-Toxic, Comfortable Pain Distress: None Mental Status: Positive for: Alert and Oriented X 3 - Systems Exam Head: Present: Atraumatic, Normocephalic Pupils: Present: PERRL Extroacular Muscles: Present: EOMI Conjunctiva: Present: Normal Mouth: Present: Moist Mucous Membranes Neck: Present: Normal Range of Motion Respiratory/Chest: Present: Clear to Auscultation, Good Air Exchange. No: Respiratory Distress, Accessory Muscle Use Cardiovascular: Present: Regular Rate and Rhythm, Normal S1, S2. No: Murmurs Abdomen: No: Tenderness, Distention, Peritoneal Signs Genitourinary Male: Present: Testicle Tenderness, Erythema (cellulitis /skin excoriation groin/scrotum), Testicle Swelling. No: Penile Swelling, Prostate Tenderness Back: Present: Normal Inspection Upper Extremity: Present: Normal Inspection. No: Cyanosis, Edema Lower Extremity: Present: Swelling (rt leg), Erythema (lower legs). No: Edema Neurological: Present: GCS=15, CN II-XII Intact, Speech Normal, Motor Func Grossly Intact, Normal Sensory Function Skin: Present: Warm, Dry, Normal Color. No: Rashes Psychiatric: Present: Alert, Oriented x 3, Normal Insight, Normal Concentration Medical Decision Making ED Course and Treatment: 07/17/18 20:19 Pt signed out to me by Dr. Barajas to f/u Testicular sono, CT abd/pelv, revaluate and disposition/Past Med. Hx./HPI are noted. US Scrotum reviewed, shows: Impression: No testicular mass. Satisfactory blood flow to both testicles. Small hydrocele rt side. Extensive edema to the scrotal wall. Clinical correlation advised. 07/17/18 23:[address] Verdin covering Dr. Rey who is aware and agrees with the plan. Will accept patient to Dr. Rey's service for cellulitis. - Lab Interpretations Lab Results: 07/17/18 17:23 07/17/18 17:23 Lab Results 07/17/18 17:23: Sodium 137, Chloride 110 H, Potassium 3.3 L, Carbon Dioxide 23, Anion Gap 7 L, BUN 13, Creatinine 0.6 L, Est GFR ( Amer) > 60, Est GFR (Non-Af Amer) > 60, Random Glucose 72, Calcium 7.8 L, Magnesium 2.1, Total Bilirubin 0.3, AST 28, ALT 37, Alkaline Phosphatase 60, Troponin I < 0.01, NT-Pro-B Natriuret Pep 1040 H, Total Protein 4.8 L, Albumin 2.2 L, Globulin 2.6, Albumin/Globulin Ratio 0.8 L 07/17/18 17:23: pO2 26 L, VBG pH 7.31 L, VBG pCO2 46.0, VBG HCO3 23.2, VBG Total CO2 24.6, VBG O2 Sat (Calc) 40.9, VBG Base Excess -3.3 L, VBG Potassium 3.2 L, Sodium 136.0, Chloride 111.0 H, Glucose 70 L, Lactate 0.8, FiO2 21.0, Venous Blood Potassium 3.2 L 07/17/18 17:23: PT 13.9 H, INR 1.21, APTT 32.5 07/17/18 17:23: WBC 4.4 L, RBC 3.66, Hgb 9.5 L, Hct 29.7 L, MCV 81.1, MCH 26.0, MCHC 32.0, RDW 17.3 H, Plt Count 353, MPV 9.2, Gran % 68.3 H, Lymph % (Auto) 20.3 L, [place] % (Auto) 9.1 H, Eos % (Auto) 1.8, Baso % (Auto) 0.5, Gran # 2.99, Lymph # (Auto) 0.9 L, [place] # (Auto) 0.4, Eos # (Auto) 0.1, Baso # (Auto) 0.02 - RAD Interpretation Radiology Orders: 07/17/18 16:36 ABD 2 VIEWS (FLAT/UP OR DECUB) [RAD] Stat DUPLEX LOWER EXTRM VEIN BILAT [US] Stat 07/17/18 19:30 TESTES DUPLEX COMPLETE [US] Stat 07/17/18 19:34 ABD PELVIS PO & IV CONTRAST [CT] Stat 07/17/18 20:10 CHEST PORTABLE [RAD] Stat - Medication Orders Current Medication Orders: Sodium Chloride (Sodium Chloride 0.9%) 1,000 mls @ 999 mls/hr IV .Q1H1M STA Stop: 07/17/18 21:00 - Scribe Statement The provider has reviewed the documentation as recorded by the [place] Roma Garcia All medical record entries made by the Scribe were at my direction and personally dictated by me. I have reviewed the chart and agree that the record accurately reflects my personal performance of the history, physical exam, medical decision making, and the department course for this patient. I have also personally directed, reviewed, and agree with the discharge instructions and disposition. Disposition/Present on Arrival - Present on Arrival Any Indicators Present on Arrival: No History of DVT/PE: No History of Uncontrolled Diabetes: No Urinary Catheter: No History of Decub. Ulcer: No History Surgical Site Infection Following: None - Disposition Have Diagnosis and Disposition been Completed?: Yes Diagnosis: Leg swelling, Cellulitis, Scrotal edema Disposition: HOSPITALIZED Disposition Time: 23:44 Patient Problems: Current Active Problems Problem Status Onset Cellulitis Acute Leg swelling Acute Scrotal edema Acute Condition: STABLE
[2018-07-17] MEDS ORDERED: Vancomycin 1gm in NS 250ml 1 GM/250 ML BAG IVPB STA (20:23)
[2018-07-17] MEDS ORDERED: Iohexol 240 (50 ml) ONE (21:53)
[2018-07-18] MEDS ORDERED: Iohexol 350 MG/100 ML VIAL ONE (00:44)
[2018-07-18] MEDS: Vancomycin 1gm in NS 250ml 1 GM/250 ML BAG IVPB SCH ×2 (09:50→20:51)
--- NOTE | 2018-07-18 09:50 | CP.PCM.CON ---
History of Present Illness - History of Present Illness History of Present Illness: Awake,alert,no distress Reason for consultation: Cardiac evaluation of swollen legs, elevated BNP, history of DVT and pulmonary embolism, on Pradaxa Brief history of present illness: A 48 year old male, mentally challenged, who was brought in to the ER due to leg swelling and swollen testicles. He is known to service from previous admission. History of GI bleeding,anemia, deep vein thrombosis, pulmonary embolism, was on Coumadin then switch to Pradaxa,aspiration pneumonia,gastric outlet obstruction,small bowel resection with ileostomy, ileostomy reversal,inguinal hernia repair,intractable diarrhea, tachycardia,had bradycardia during EGD. Seen and examined by me and Dr. Berry Review of Systems - Review of Systems All systems: reviewed and no additional remarkable complaints except Review of Systems: as per HPI Past Patient History - Infectious Disease Hx of Infectious Diseases: None - Tetanus Immunizations Tetanus Immunization: Unknown - Past Social History Smoking Status: Never Smoked - CARDIAC Hx Cardiac Disorders: No - PULMONARY Hx Respiratory Disorders: Yes Other/Comment: aspiration pna - NEUROLOGICAL Other/Comment: mental retardation - HEENT Hx HEENT Problems: No - RENAL Hx Chronic Kidney Disease: No - ENDOCRINE/METABOLIC Hx Endocrine Disorders: No - HEMATOLOGICAL/ONCOLOGICAL Hx Blood Disorders: Yes Hx Anemia: Yes - INTEGUMENTARY Hx Dermatological Problems: Yes Other/Comment: multiple abdominal scarring - MUSCULOSKELETAL/RHEUMATOLOGICAL Hx Falls: No - GASTROINTESTINAL Hx Gastrointestinal Disorders: Yes Hx Colostomy: Yes (reversal) Hx Ileostomy: Yes Other/Comment: colitis - GENITOURINARY/GYNECOLOGICAL Hx Genitourinary Disorders: No - PSYCHIATRIC Other/Comment: mental retardation - SURGICAL HISTORY Other/Comment: small bowel resection - ANESTHESIA Hx Anesthesia Reactions: No Hx Malignant Hyperthermia: No Meds Allergies/Adverse Reactions: Allergies Allergy/AdvReac Type Severity Reaction Status Date / Time No Known Allergies Allergy Verified 11/27/17 17:29 - Medications Medications: Current Medications Vancomycin HCl (Vancomycin 1gm) 1 gm in 250 mls @ 167 mls/hr IVPB Q12H ETHAN; Protocol Physical Exam - Constitutional Appears: Non-toxic, No Acute Distress - Head Exam Head Exam: NORMAL INSPECTION, NORMOCEPHALIC - ENT Exam ENT Exam: Mucous Membranes Dry, Normal Exam - Respiratory Exam Respiratory Exam: Clear to Auscultation Bilateral, NORMAL BREATHING PATTERN - Cardiovascular Exam Cardiovascular Exam: +S1, +S2 - GI/Abdominal Exam GI & Abdominal Exam: Normal Bowel Sounds, Soft - Exam Exam: Scrotal Swelling Additional comments: tender to touch,positive pain - Extremities Exam Additional comments: leg swelling 2+ - Neurological Exam Neurological exam: Alert - Psychiatric Exam Psychiatric exam: Normal Affect, Normal Mood Additional comments: cooperative - Skin Skin Exam: Dry, Normal Color, Warm Results - Vital Signs Recent Vital Signs: Last Vital Signs Temp 98 F 07/18/18 08:27 Pulse 80 07/18/18 08:27 Resp 18 07/18/18 08:27 BP 108/68 07/18/18 08:27 Pulse Ox 98 07/18/18 08:27 - Labs Result Diagrams: 07/17/18 17:23 07/17/18 17:23 Labs: Laboratory Results - last 24 hr 07/17/18 07/17/18 07/17/18 17:23 17:23 17:23 WBC 4.4 L RBC 3.66 Hgb 9.5 L Hct 29.7 L MCV 81.1 MCH 26.0 MCHC 32.0 RDW 17.3 H Plt Count 353 MPV 9.2 Gran % 68.3 H Lymph % (Auto) 20.3 L [place] % (Auto) 9.1 H Eos % (Auto) 1.8 Baso % (Auto) 0.5 Gran # 2.99 Lymph # (Auto) 0.9 L [place] # (Auto) 0.4 Eos # (Auto) 0.1 Baso # (Auto) 0.02 PT 13.9 H INR 1.21 APTT 32.5 pO2 26 L VBG pH 7.31 L VBG pCO2 46.0 VBG HCO3 23.2 VBG Total CO2 24.6 VBG O2 Sat (Calc) 40.9 VBG Base Excess -3.3 L VBG Potassium 3.2 L Sodium 136.0 Chloride 111.0 H Glucose 70 L Lactate 0.8 FiO2 21.0 Potassium Carbon Dioxide Anion Gap BUN Creatinine Est GFR ( Amer) Est GFR (Non-Af Amer) Random Glucose Calcium Magnesium Total Bilirubin AST ALT Alkaline Phosphatase Troponin I NT-Pro-B Natriuret Pep Total Protein Albumin Globulin Albumin/Globulin Ratio Venous Blood Potassium 3.2 L 07/17/18 17:23 WBC RBC Hgb Hct MCV MCH MCHC RDW Plt Count MPV Gran % Lymph % (Auto) [place] % (Auto) Eos % (Auto) Baso % (Auto) Gran # Lymph # (Auto) [place] # (Auto) Eos # (Auto) Baso # (Auto) PT INR APTT pO2 VBG pH VBG pCO2 VBG HCO3 VBG Total CO2 VBG O2 Sat (Calc) VBG Base Excess VBG Potassium Sodium 137 Chloride 110 H Glucose Lactate FiO2 Potassium 3.3 L Carbon Dioxide 23 Anion Gap 7 L BUN 13 Creatinine 0.6 L Est GFR ( Amer) > 60 Est GFR (Non-Af Amer) > 60 Random Glucose 72 Calcium 7.8 L Magnesium 2.1 Total Bilirubin 0.3 AST 28 ALT 37 Alkaline Phosphatase 60 Troponin I < 0.01 NT-Pro-B Natriuret Pep 1040 H Total Protein 4.8 L Albumin 2.2 L Globulin 2.6 Albumin/Globulin Ratio 0.8 L Venous Blood Potassium Assessment & Plan - Assessment and Plan (Free Text) Assessment: A 48 year old male, mentally challenged, who was brought in to the ER due to leg swelling and swollen testicles.Poor historian, chart reviewed. He is known to service from previous admission. 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 Had episode of bradycardia at EGD, initially interpreted as junctional rhythm, but 12 lead lead EKG confirmed to be Sinus bradycardia at 50's/min with short NV interval. BNP elevated but no shortness of breath, chest Xray-pending. Review of previous cardiac work up: 07/18/2016 ECHO done- normal LV size LVEF 55-60% Mild MR/TR RVSP- 33mmHg 07/07/18 12 lead EKG- NSR with short NV interval Plan: Denies shortness of breath, denies chest pain BNP elevated but no signs of shortness of breath Awaiting chest x ray final result Ultrasound of lower extremities for leg swelling done to rule out DVT-pending results Ultrasound of testes done- pending results CT of abdomen and pelvis done-pending results Will restart Pradaxa Heart rate 70's,regular Blood pressure controlled,stable Replenished potassium, repeat electrolytes in AM Continue current medications Continue current treatment Further recommendations during hospital course Chart reviewed Will follow up Plan and treatment discussed with Dr. Berry Thank you Dr. Rey for the opportunity of taking care of Sean Dee - Date & Time Date: 07/18/18 Time: 06:30
--- NOTE | 2018-07-18 10:29 | RAD ---
Date of service: 07/17/2018 HISTORY: medical clearance COMPARISON: 06/28/2018 FINDINGS: LUNGS: No active pulmonary disease. PLEURA: No significant pleural effusion identified, no pneumothorax apparent. CARDIOVASCULAR: Normal. OSSEOUS STRUCTURES: No significant abnormalities. VISUALIZED UPPER ABDOMEN: Normal. OTHER FINDINGS: None. IMPRESSION: No active disease.
--- NOTE | 2018-07-18 11:31 | RAD ---
Date of service: 07/17/2018 HISTORY: genital swelling COMPARISON: 01/14/2017 FINDINGS: BOWEL: Severely dilated loops of large bowel are seen especially the descending colon. Findings are similar to previous studies and may represent chronic ileus BONES: Normal. OTHER FINDINGS: None. IMPRESSION: Severely dilated loops of large bowel are seen especially the descending colon. Findings are similar to previous studies and may represent chronic ileus
[2018-07-18] MEDS ORDERED: Potassium Chloride 20 mEq ER Tab PO ONE (15:00)
--- NOTE | 2018-07-18 15:38 | CT ---
Date of service: 07/18/2018 PROCEDURE: CT Abdomen and Pelvis with contrast HISTORY: r/o obstruction COMPARISON: None. TECHNIQUE: Contrast dose: 150 cc of Omni 350 Radiation dose: Total exam DLP = 269 mGy-cm. This CT exam was performed using one or more of the following dose reduction techniques: Automated exposure control, adjustment of the mA and/or kV according to patient size, and/or use of iterative reconstruction technique. FINDINGS: LOWER THORAX: Unremarkable. LIVER: Unremarkable. No gross lesion or ductal dilatation. GALLBLADDER AND BILE DUCTS: Removed PANCREAS: Unremarkable. No gross lesion or ductal dilatation. SPLEEN: Unremarkable. ADRENALS: Unremarkable. No mass. KIDNEYS AND URETERS: Unremarkable. No hydronephrosis. No solid mass. VASCULATURE: Unremarkable. No aortic aneurysm. 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 The large bowel is also dilated. There is a surgical anastomosis in the rectosigmoid which appears to be the site of partial obstruction. The colon is dilated up to 5.6 cm just proximal to this area. Findings are seen on image 138 series 3. APPENDIX: Normal appendix. PERITONEUM: Unremarkable. No free fluid. No free air. LYMPH NODES: Unremarkable. No enlarged lymph nodes. BLADDER: Unremarkable. REPRODUCTIVE: Unremarkable. BONES: No acute fracture. OTHER FINDINGS: The report concurs with the preliminary [facility] report. That report described a majority of findings. However the surgical anastomosis and partial obstruction was not mentioned. IMPRESSION: The stomach is distended with an air-fluid level. The large bowel is also dilated. There is a surgical anastomosis in the rectosigmoid which appears to be the site of partial obstruction. The colon is dilated up to 5.6 cm just proximal to this area.
--- NOTE | 2018-07-18 15:42 | CP.PCM.CON ---
History of Present Illness - History of Present Illness History of Present Illness: 48 year old male with PMH of GERD, chronic anemia, anxiety, history of SBO, history of recurrent pneumonia, mental disability came in to [facility] because of swelling of the right leg as well as swelling of the testes. The history is taken from ED records as well as from floor staff since the patient is not a good historian. The patient currently is comfortable in bed, denies pain in his right leg, no nausea or vomiting, is actually eating his lunch well, no fever or chills, no diarrhea. Infectious Diseases consult is requested to further evaluate and manage. Review of Systems - Review of Systems All systems: reviewed and no additional remarkable complaints except (as per HPI) Past Patient History - Infectious Disease Hx of Infectious Diseases: None - Tetanus Immunizations Tetanus Immunization: Unknown - Past Social History Smoking Status: Never Smoked - CARDIAC Hx Cardiac Disorders: No - PULMONARY Hx Respiratory Disorders: Yes Other/Comment: aspiration pna - NEUROLOGICAL Other/Comment: mental retardation - HEENT Hx HEENT Problems: No - RENAL Hx Chronic Kidney Disease: No - ENDOCRINE/METABOLIC Hx Endocrine Disorders: No - HEMATOLOGICAL/ONCOLOGICAL Hx Blood Disorders: Yes Hx Anemia: Yes - INTEGUMENTARY Hx Dermatological Problems: Yes Other/Comment: multiple abdominal scarring - MUSCULOSKELETAL/RHEUMATOLOGICAL Hx Falls: No - GASTROINTESTINAL Hx Gastrointestinal Disorders: Yes Hx Colostomy: Yes (reversal) Hx Ileostomy: Yes Other/Comment: colitis - GENITOURINARY/GYNECOLOGICAL Hx Genitourinary Disorders: No - PSYCHIATRIC Other/Comment: mental retardation - SURGICAL HISTORY Other/Comment: small bowel resection - ANESTHESIA Hx Anesthesia Reactions: No Hx Malignant Hyperthermia: No Meds Allergies/Adverse Reactions: Allergies Allergy/AdvReac Type Severity Reaction Status Date / Time No Known Allergies Allergy Verified 11/27/17 17:29 - Medications Medications: Current Medications Vancomycin HCl (Vancomycin 1gm) 1 gm in 250 mls @ 167 mls/hr IVPB Q12H ETHAN; Protocol Physical Exam - Constitutional Appears: No Acute Distress, Cachectic, Chronically Ill - Head Exam Head Exam: NORMAL INSPECTION - Respiratory Exam Respiratory Exam: Decreased Breath Sounds - Cardiovascular Exam Cardiovascular Exam: +S1, +S2 - GI/Abdominal Exam GI & Abdominal Exam: Soft. absent: Tenderness Results - Vital Signs Recent Vital Signs: Last Vital Signs Temp 97.8 F 07/17/18 16:13 Pulse 73 07/18/18 01:00 Resp 18 10/07/18 02:30 BP 106/70 07/18/18 01:00 Pulse Ox 100 07/18/18 01:00 - Labs Result Diagrams: 07/17/18 17:23 07/17/18 17:23 Labs: Laboratory Results - last 24 hr 07/17/18 07/17/18 07/17/18 17:23 17:23 17:23 WBC 4.4 L RBC 3.66 Hgb 9.5 L Hct 29.7 L MCV 81.1 MCH 26.0 MCHC 32.0 RDW 17.3 H Plt Count 353 MPV 9.2 Gran % 68.3 H Lymph % (Auto) 20.3 L [place] % (Auto) 9.1 H Eos % (Auto) 1.8 Baso % (Auto) 0.5 Gran # 2.99 Lymph # (Auto) 0.9 L [place] # (Auto) 0.4 Eos # (Auto) 0.1 Baso # (Auto) 0.02 PT 13.9 H INR 1.21 APTT 32.5 pO2 26 L VBG pH 7.31 L VBG pCO2 46.0 VBG HCO3 23.2 VBG Total CO2 24.6 VBG O2 Sat (Calc) 40.9 VBG Base Excess -3.3 L VBG Potassium 3.2 L Sodium 136.0 Chloride 111.0 H Glucose 70 L Lactate 0.8 FiO2 21.0 Potassium Carbon Dioxide Anion Gap BUN Creatinine Est GFR ( Amer) Est GFR (Non-Af Amer) Random Glucose Calcium Magnesium Total Bilirubin AST ALT Alkaline Phosphatase Troponin I NT-Pro-B Natriuret Pep Total Protein Albumin Globulin Albumin/Globulin Ratio Venous Blood Potassium 3.2 L 07/17/18 17:23 WBC RBC Hgb Hct MCV MCH MCHC RDW Plt Count MPV Gran % Lymph % (Auto) [place] % (Auto) Eos % (Auto) Baso % (Auto) Gran # Lymph # (Auto) [place] # (Auto) Eos # (Auto) Baso # (Auto) PT INR APTT pO2 VBG pH VBG pCO2 VBG HCO3 VBG Total CO2 VBG O2 Sat (Calc) VBG Base Excess VBG Potassium Sodium 137 Chloride 110 H Glucose Lactate FiO2 Potassium 3.3 L Carbon Dioxide 23 Anion Gap 7 L BUN 13 Creatinine 0.6 L Est GFR ( Amer) > 60 Est GFR (Non-Af Amer) > 60 Random Glucose 72 Calcium 7.8 L Magnesium 2.1 Total Bilirubin 0.3 AST 28 ALT 37 Alkaline Phosphatase 60 Troponin I < 0.01 NT-Pro-B Natriuret Pep 1040 H Total Protein 4.8 L Albumin 2.2 L Globulin 2.6 Albumin/Globulin Ratio 0.8 L Venous Blood Potassium Assessment & Plan - Assessment and Plan (Free Text) Plan: Assessment right leg and testes swelling, consider cellulitis, R/O DVT, R/O hydrocoele partial large bowel obstruction (rectosigmoid area) as seen on CT A/P history of Left lower lobe HCAP as well as Influenza S/P Severe sepsis due to right leg cellulitis with associated DVT distal colonic obstruction GERD chronic anemia anxiety history of SBO history of recurrent pneumonia Plan will start Vancomycin and Zosyn and will monitor clinically follow up ultrasound of right leg reviewed CT A/P follow up blood cx
[2018-07-18] MEDS: Nystatin 100,000 Units/gm Topical Pow(15 gm) TOP SCH (17:37)
[2018-07-18] MEDS: Pantoprazole 40 mg EC Tab PO SCH (17:37)
--- NOTE | 2018-07-18 20:03 | US ---
HISTORY: Leg pain and swelling. Evaluate for DVT PHYSICIAN(S): Juan Easley MD. TECHNIQUE: Duplex sonography and color-flow Doppler with graded compression were used to evaluate the deep venous systems of both lower extremities. FINDINGS: There is post phlebitic change in the mid to distal right femoral vein. No acute DVT is seen. The right common femoral vein and right popliteal vein are patent and compressible. There is no sonographic evidence for deep venous thrombosis in the visualized segments left lower extremity. IMPRESSION: Post-phlebitic changes in the right mid to distal femoral vein
[2018-07-18] MEDS: Piperacillin/Tazobact 3.375 gm 100 ML IVPB SCH (23:22)
--- NOTE | 2018-07-19 01:43 | HP ---
date 07/18/18 CHIEF COMPLAINT: Swelling of genitalia, buttocks excoriation, diarrhea. HISTORY OF PRESENT ILLNESS: Mr. Sean Dee, 48-year-old male, well known to me from previous admissions and my office, I know him for many years. History of colostomy, ileostomy, anemia, colitis, mental retardation, was recently discharged from [facility]. Came back with swelling of the genitalia, suspected gastric ulcer and swollen right leg. The patient's sister, Iman explained that there is no fever, chills. No chest pain. No shortness of breath. No nausea or vomiting, but the patient has diarrhea. No fever. No chills. PAST MEDICAL HISTORY: History of aspiration pneumonia, multiple scarring to the abdominal areas for abdominal surgeries, history of fall, gastric outlet obstruction, paralytic ileus, GERD, GI bleeding, ileostomy reversal, history of DVT, anemia, noncompliant with Coumadin and checking of the PT/INR. FAMILY HISTORY: Unknown because child was adopted. HABITS: Never smoking. No drugs. No ethanol. ALLERGIES: NO KNOWN ALLERGIES. REVIEW OF SYSTEMS: The patient was seen and examined on the bedside, looking comfortable. As per the patient's nurse, the patient is having too much diarrhea. With every meal, he is going for bowel movement and giving excoriation on the buttocks. No fever. No chills. PHYSICAL EXAMINATION: VITAL SIGNS: Temperature 98.1, pulse 79, blood pressure 102/58, respiratory rate 18. HEENT: Head normocephalic, atraumatic. Eyes PERRLA. Extraocular muscles intact. Conjunctivae clear. Nose patent. NECK: Supple. No carotid bruit. No JVD or thyromegaly. CHEST: Bilaterally symmetrical. HEART: S1 and S2 positive. LUNGS: Clear to auscultation. ABDOMEN: Soft. Bowel sounds positive. No organomegaly. EXTREMITIES: No edema. No cyanosis. NEUROLOGICAL: The patient is awake and alert. Moving all 4 extremities. Follows simple commands. LABORATORY DATA: White blood cells 4.4, hemoglobin 9.5, hematocrit 29.7, platelets 353. Sodium 137, potassium 3.3, BUN 13, creatinine 0.6, calcium 7.8. ASSESSMENT AND PLAN: Mr. Sean Dee, 48-year-old male with leukopenia, anemia, hypokalemia, hyperchloremia, hypocalcemia, history of gastroesophageal reflux disease, dyspepsia, chronic anemia, anxiety, history of small bowel obstruction, recurrent pneumonia, mental disability, history of deep venous thrombosis of the leg. Looks like cellulitis of the right leg, rule out deep venous thrombosis, rule out hydrocele. Partial large bowel obstruction, retrosigmoid area as seen on CT as well as influenza. Rule out severe sepsis due to right leg cellulitis with associated deep venous thrombosis, distal colonic obstruction. Start the patient on vancomycin and Zosyn. Follow up with the ultrasound of the right leg. Discussion done with the patient's nurse. The patient has severe diarrhea. GI consult called. Discussion done with Dr. Davies. He will see the patient. Waiting for his input. According to CAT scan, stomach is distended with air fluid level. The large bowel is also dilated. There is a surgical anastomosis in the retrosigmoid, which appears to be the site of partial obstruction. The colon is dilated up to 5.6 cm just proximal to this area. According to Dr. 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 May be needed dilation. Last admission, Dr. Davies offered the family dilatation of the stricture, but family refused. I spoke to Dr. Davies. He will work on that again. We will follow up. Meme Rey MD MTDVíctor
--- NOTE | 2018-07-19 02:18 | CON ---
DATE: 07/18/2018 REASON FOR CONSULTATION AND FOLLOWUP: Admitted with leg swelling, scrotal swelling, history of DVT, pulmonary embolism, history on Pradaxa, mentally challenged. HISTORY OF PRESENT ILLNESS: The patient examined with Terrie Morelos. History of IVC filter in 2018. Initially, the patient was on Coumadin, but very difficult to manage in her own compliance, so I will just switched over to Pradaxa 75 p.o. b.i.d. EKG shows normal sinus, no acute ST-T changes noted, heart rate 72. Previously, echo on 07/17/2018, ejection fraction 55% to 60%, mild tricuspid, mild pulmonary insufficiency, RV systolic pressure of 33. RECOMMENDATIONS: Continue Pradaxa. Continue antibiotics. Continue IV fluid, monitor electrolyte closely. The patient states that the patient started eating adequate and p.o., then we will discontinue IV fluid. We will follow with you. Needs anemia workup in the past because the patient is in Pradaxa. Supplement potassium. Thank you, for providing us the opportunity in taking care of the patient, Sean Dee. We will repeat the blood workup in the morning. Yesterday, potassium was 3.3, supplemented by, we will give another 4 day today in addition to the nurse practitioner . Eber Berry MD
[2018-07-19] MEDS: Pantoprazole 40 mg EC Tab PO SCH ×2 (06:20→17:22)
[2018-07-19] MEDS: Piperacillin/Tazobact 3.375 gm 100 ML IVPB SCH ×3 (06:20→21:01)
[2018-07-19 06:44] LABS: BASO # 0.02 K/mm3 (0.0-2.0); BASO % 0.3 % (0.0-3.0); EOS # 0.1 (0.0-0.7); EOS % 1.4 % (1.5-5.0); GRAN # 4.71 (1.4-6.5); GRAN % 73.6 % (50.0-68.0); HEMOGLOBIN 9.7 g/dL (14.0-18.0); LYMPH # 0.8 (1.2-3.4); MEAN CELL VOLUME 81.2 fl (80.0-105.0); MEAN CORPUSCULAR HEMOGLOBIN 26.1 pg (25.0-35.0); MEAN CORPUSCULAR HGB CONC 32.1 g/dl (31.0-37.0); MEAN PLATELET VOLUME 9.3 fl (7.0-11.0); MONO # 0.8 (0.1-0.6); MONO % 11.7 % (1.0-6.0); RBC 3.72 10^6/uL (3.5-6.1); WHITE BLOOD COUNT 6.4 10^3/ul (4.5-11.0)
--- NOTE | 2018-07-19 06:55 | CP.PCM.PN ---
Subjective - Date & Time of Evaluation Date of Evaluation: 07/19/18 Time of Evaluation: 06:20 - Subjective Subjective: No distress,awake,alert Reason for consultation: Cardiac evaluation of swollen legs, elevated BNP, history of DVT and pulmonary embolism, on Pradaxa Seen and examined by me and Dr. Berry Objective - Vital Signs/Intake and Output Vital Signs (last 24 hours): Temp Pulse Resp BP Pulse Ox 98.8 F 84 18 102/68 98 07/18/18 22:27 07/18/18 22:27 07/18/18 22:27 07/18/18 14:51 07/18/18 22:27 - Medications Medications: Current Medications Dabigatran (Pradaxa) 75 mg PO Q12 ETHAN; Protocol Last Admin: 07/18/18 21:11 Dose: 75 mg Vancomycin HCl (Vancomycin 1gm) 1 gm in 250 mls @ 167 mls/hr IVPB Q12H ETHAN; P rotocol Last Admin: 07/18/18 20:51 Dose: 167 mls/hr Piperacillin Sod/Tazobactam Sod (Zosyn 3.375 In Ns 100ml) 100 mls @ 25 mls/hr IVPB Q8 ETHAN; Protocol Stop: 07/25/18 22:01 Last Admin: 07/19/18 06:20 Dose: 25 mls/hr Metoclopramide HCl (Reglan) 5 mg PO 0600,1130,1630,2200 ETHAN Last Admin: 07/19/18 06:20 Dose: 5 mg Nystatin (Nystop Topical Powder) 0 gm TOP BID ETHAN Last Admin: 07/18/18 17:37 Dose: 1 appl Pantoprazole Sodium (Protonix Ec Tab) 40 mg PO 0600,1600 [facility] Last Admin: 07/19/18 06:20 Dose: 40 mg - Labs Labs: 07/17/18 17:23 07/17/18 17:23 PT 13.9 SECONDS (9.4-12.5) H 07/17/18 17:23 INR 1.21 07/17/18 17:23 APTT 32.5 Seconds (25.1-36.5) 07/17/18 17:23 - Constitutional Appears: Non-toxic, No Acute Distress - Head Exam Head Exam: NORMAL INSPECTION, NORMOCEPHALIC - Eye Exam Eye Exam: Normal appearance - ENT Exam ENT Exam: Mucous Membranes Moist - Respiratory Exam Respiratory Exam: Decreased Breath Sounds, Clear to Ausculation Bilateral, NORMAL BREATHING PATTERN - Cardiovascular Exam Cardiovascular Exam: +S1, +S2 - GI/Abdominal Exam GI & Abdominal Exam: Soft, Normal Bowel Sounds - Extremities Exam Additional comments: leg swelling 2+ - Neurological Exam Neurological Exam: Alert, Awake, Oriented x3 - Psychiatric Exam Psychiatric exam: Normal Affect, Normal Mood - Skin Skin Exam: Dry, Normal Color, Warm Assessment and Plan - Assessment and Plan (Free Text) Assessment: A 48 year old male, mentally challenged, who was brought in to the ER due to leg swelling and swollen testicles.Poor historian, chart reviewed. He is known to service from previous admission. 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 Had episode of bradycardia at EGD, initially interpreted as junctional rhythm, but 12 lead lead EKG confirmed to be Sinus bradycardia at 50's/min with short PA interval. BNP elevated but no shortness of breath, chest Xray-unremarkable. Leg cellulitis. Review of previous cardiac work up: 07/18/2016 ECHO done- normal LV size LVEF 55-60% Mild MR/TR RVSP- 33mmHg 07/07/18 12 lead EKG- NSR with short PA interval Plan: Denies shortness of breath, denies chest pain Chest x ray unremarkable Ultrasound of lower extremities for leg swelling done No DVT Ultrasound of testes done- pending results CT of abdomen and pelvis done-stomach is distended with air fluid, dilated large bowel, surgical anastomosis in the rectosigmoid which appears to be the site of partial obstruction. dilated colon 5.6 cm just proximal to the area. Restarted Pradaxa Heart rate 70's,regular Blood pressure controlled,stable Continue IV antibiotics per ID (leg cellulitis) Continue current medications Continue current treatment Chart reviewed Will follow up Plan and treatment discussed with Dr. Berry
[2018-07-19 07:23] LABS: BLOOD UREA NITROGEN 9 mg/dL (7-21); GFR NON-AFRICAN AMERICAN > 60
[2018-07-19 07:24] LABS: ALB/GLOB RATIO 0.8 (1.1-1.8); ALT/SGPT 39 U/L (7-56); AST/SGOT 30 U/L (17-59); CALCIUM 7.7 mg/dL (8.4-10.5); HDL CHOLESTEROL 57 mg/dL (29-60)
[2018-07-19 07:34] LABS: LDL CHOLESTEROL < 30 mg/dL (0-129)
[2018-07-19 07:43] LABS: IRON 27 ug/dL (45-180)
[2018-07-19 07:52] LABS: % IRON SATURATION 18 % (20-55); TOTAL IRON BINDING CAPACITY 148 ug/dL (261-462)
[2018-07-19] MEDS: Vancomycin 1gm in NS 250ml 1 GM/250 ML BAG IVPB SCH ×2 (08:20→21:01)
--- NOTE | 2018-07-19 09:18 | CON ---
DATE: 07/19/2018 REASON FOR CONSULTATION: DVT, hypercoagulable state, severe anemia. HISTORY OF PRESENT ILLNESS: Mr. Dee is a 48-year-old male admitted to the hospital with swelling of the right lower extremity and scrotal swelling. He also had abdominal pain. No fever. No chills. No rigors. No shortness of breath. No nausea. No vomiting. CAT scan of the abdomen showed dilatation of the cecum, fluid level in the stomach suggestive of colon obstruction at anastomosis site. He is currently on IV antibiotics, Zosyn and vancomycin. Currently on Pradaxa 75 mg b.i.d. Right lower extremity Doppler did not show acute DVT. PAST MEDICAL HISTORY: Multiple GI surgeries, gastric outlet obstruction, severe anemia, hypercoagulable state, DVT, pulmonary embolism, status post IVC filter placement. FAMILY HISTORY: Unknown. PERSONAL HISTORY: Nonsmoker. No history of drug abuse. ALLERGIES: NO KNOWN DRUG ALLERGIES. REVIEW OF SYSTEMS: As per HPI. Rest of 12-point review of systems reviewed, negative. PHYSICAL EXAMINATION: GENERAL: Comfortable in bed, in no acute distress. VITAL SIGNS: Temperature 98.7, heart rate is 70 per minute, blood pressure 100/60, respiratory rate 15 per minute. HEENT: Pallor positive. NECK: No lymphadenopathy. CHEST: Air entry present and equal, bilateral. No added sounds. CARDIOVASCULAR: S1, S2 normal. No murmur. No gallop. ABDOMEN: Soft, nontender. Bowel sound decreased. EXTREMITIES: New right leg cellulitis. LABORATORY DATA: Hemoglobin 9.5, hematocrit 29.7, platelet 353. Creatinine 0.6. CURRENT MEDICATIONS: Vancomycin, Zosyn, Pradaxa 75 mg p.o. b.i.d., Reglan p.r.n., Protonix 40 mg daily. ASSESSMENT: 1. Sepsis. 2. Right lower extremity cellulitis. 3. Hypercoagulable state, right femoral deep venous thrombosis, history of pulmonary embolism. 4. Mental retardation. 5. Severe anemia, iron deficiency, anemia of chronic disease. PLAN: 1. He is currently on Pradaxa, has small bowel obstruction, who might need procedure during this hospitalization. I would recommend discontinuing Pradaxa and putting on heparin, prophylactic doses 5000 b.i.d. We will resume Pradaxa once acute issues are resolved. Currently on IV antibiotic, vancomycin and Zosyn. 2. History of severe iron-deficiency anemia. Hemoglobin and hematocrit stable . We will hold any blood transfusion for now. 3. History of gastrointestinal bleeding in the past, no acute bleeding right now. GI, Dr. Davies following. Thank you, Dr. Rey for allowing us to participate in Mr. Dee's care. We will continue to follow during hospitalization. Candace Murillo MD
[2018-07-19] MEDS: Nystatin 100,000 Units/gm Topical Pow(15 gm) TOP SCH ×2 (11:11→17:25)
[2018-07-19] MEDS ORDERED: Morphine 2 mg/ml ISec IVP ONE (12:53)
--- NOTE | 2018-07-19 14:12 | CP.PCM.CON ---
<RosalindaanaRoberto rodrigez - Last Filed: 07/19/18 14:07> History of Present Illness - History of Present Illness History of Present Illness: GI Consult Note for Dr. Davies Consult Reason: Frequent Bowel movements HPI: 48 year old male with past medical history of mental disability, anemia, colitis, colostomy, history of GI bleeding, ileostomy, hx of DVT and PE treated with Pradaxa who presented to [facility] with complaints of swollen testicles and right leg swelling. Patient history limited secondary to mental capacity. Patient denies abdominal pain, nausea, vomiting, tolerating diet, constipation, diarrhea. PMH: Mental disability, anemia, colitis, colostomy, history of GI bleeding, ileostomy, hx of DVT and PE treated with Pradaxa PSH: small bowel resection with Ileostomy, colostomy, inguinal hernia repair SOCHX: Tobacco: Denies, ETOH: Denies, ID: Denies FMH: Noncontributory ALL: NKDA MEDS: MAR reviewed Review of Systems - Review of Systems All systems: reviewed and no additional remarkable complaints except (as per HPI) Past Patient History - Infectious Disease Hx of Infectious Diseases: None - Tetanus Immunizations Tetanus Immunization: Unknown - Past Social History Smoking Status: Never Smoked - CARDIAC Hx Cardiac Disorders: No - PULMONARY Hx Respiratory Disorders: Yes Other/Comment: aspiration pna - NEUROLOGICAL Other/Comment: mental retardation - HEENT Hx HEENT Problems: No - RENAL Hx Chronic Kidney Disease: No - ENDOCRINE/METABOLIC Hx Endocrine Disorders: No - HEMATOLOGICAL/ONCOLOGICAL Hx Blood Disorders: Yes Hx Anemia: Yes - INTEGUMENTARY Hx Dermatological Problems: Yes Other/Comment: multiple abdominal scarring - MUSCULOSKELETAL/RHEUMATOLOGICAL Hx Falls: No - GASTROINTESTINAL Hx Gastrointestinal Disorders: Yes Hx Colostomy: Yes (reversal) Hx Ileostomy: Yes Other/Comment: colitis - GENITOURINARY/GYNECOLOGICAL Hx Genitourinary Disorders: No - PSYCHIATRIC Other/Comment: mental retardation - SURGICAL HISTORY Other/Comment: small bowel resection - ANESTHESIA Hx Anesthesia Reactions: No Hx Malignant Hyperthermia: No Meds Allergies/Adverse Reactions: Allergies Allergy/AdvReac Type Severity Reaction Status Date / Time No Known Allergies Allergy Verified 11/27/17 17:29 - Medications Medications: Current Medications Heparin Sodium (Porcine) (Heparin) 5,000 units SC Q12 [facility]; Protocol Last Admin: 07/19/18 11:11 Dose: 5,000 units Vancomycin HCl (Vancomycin 1gm) 1 gm in 250 mls @ 167 mls/hr IVPB Q12H [facility]; Protocol Last Admin: 07/19/18 08:20 Dose: 167 mls/hr Piperacillin Sod/Tazobactam Sod (Zosyn 3.375 In Ns 100ml) 100 mls @ 25 mls/hr IVPB Q8 [facility]; Protocol Stop: 07/25/18 22:01 Last Admin: 07/19/18 06:20 Dose: 25 mls/hr Metoclopramide HCl (Reglan) 5 mg PO 0600,1130,1630,2200 [facility] Last Admin: 07/19/18 11:11 Dose: 5 mg Mupirocin (Bactroban Ointment) 1 gm TOP BID [facility] Nystatin (Nystop Topical Powder) 0 gm TOP BID [facility] Last Admin: 07/19/18 11:11 Dose: 1 appl Pantoprazole Sodium (Protonix Ec Tab) 40 mg PO 0600,1600 [facility] Last Admin: 07/19/18 06:20 Dose: 40 mg Physical Exam - Constitutional Appears: No Acute Distress - Head Exam Head Exam: ATRAUMATIC, NORMAL INSPECTION, NORMOCEPHALIC - Eye Exam Eye Exam: EOMI, PERRL - ENT Exam ENT Exam: Mucous Membranes Moist - Neck Exam Neck exam: Positive for: Full Rom - Respiratory Exam Respiratory Exam: NORMAL BREATHING PATTERN - Cardiovascular Exam Cardiovascular Exam: REGULAR RHYTHM - GI/Abdominal Exam GI & Abdominal Exam: Normal Bowel Sounds, Soft. absent: Tenderness - Extremities Exam Extremities exam: Positive for: normal inspection. Negative for: calf tenderness - Back Exam Back exam: NORMAL INSPECTION - Neurological Exam Neurological exam: Alert Additional comments: motor and sensory grossly intact - Psychiatric Exam Psychiatric exam: Normal Affect, Normal Mood - Skin Skin Exam: Dry, Intact Results - Vital Signs Recent Vital Signs: Last Vital Signs Temp 99 F 07/19/18 08:35 Pulse 90 07/19/18 08:35 Resp 18 07/19/18 08:35 BP 102/54 L 07/19/18 08:35 Pulse Ox 97 07/19/18 08:35 - Labs Result Diagrams: 07/19/18 06:20 07/19/18 06:20 Labs: Laboratory Results - last 24 hr 07/19/18 07/19/18 07/19/18 06:20 06:20 06:20 WBC 6.4 D RBC 3.72 Hgb 9.7 L Hct 30.2 L MCV 81.2 MCH 26.1 MCHC 32.1 RDW 18.0 H Plt Count 373 MPV 9.3 Gran % 73.6 H Lymph % (Auto) 13.0 L [place] % (Auto) 11.7 H Eos % (Auto) 1.4 L Baso % (Auto) 0.3 Gran # 4.71 Lymph # (Auto) 0.8 L [place] # (Auto) 0.8 H Eos # (Auto) 0.1 Baso # (Auto) 0.02 Sodium 134 Potassium 3.8 Chloride 108 H Carbon Dioxide 24 Anion Gap 6 L BUN 9 Creatinine 0.6 L Est GFR ( Amer) > 60 Est GFR (Non-Af Amer) > 60 Random Glucose 94 Calcium 7.7 L Phosphorus 2.1 L Magnesium 1.8 Iron 27 L TIBC 148 L % Saturation 18 L Total Bilirubin 0.3 AST 30 ALT 39 Alkaline Phosphatase 51 Total Protein 4.4 L Albumin 2.0 L Globulin 2.5 Albumin/Globulin Ratio 0.8 L Triglycerides 31 L Cholesterol 83 L LDL Cholesterol Direct < 30 HDL Cholesterol 57 TSH 3rd Generation 07/19/18 06:20 WBC RBC Hgb Hct MCV MCH MCHC RDW Plt Count MPV Gran % Lymph % (Auto) [place] % (Auto) Eos % (Auto) Baso % (Auto) Gran # Lymph # (Auto) [place] # (Auto) Eos # (Auto) Baso # (Auto) Sodium Potassium Chloride Carbon Dioxide Anion Gap BUN Creatinine Est GFR ( Amer) Est GFR (Non-Af Amer) Random Glucose Calcium Phosphorus Magnesium Iron TIBC % Saturation Total Bilirubin AST ALT Alkaline Phosphatase Total Protein Albumin Globulin Albumin/Globulin Ratio Triglycerides Cholesterol LDL Cholesterol Direct HDL Cholesterol TSH 3rd Generation 3.75 Assessment & Plan - Assessment and Plan (Free Text) Assessment: 48 year old male with past medical history of mental disability, anemia, colitis, colostomy, history of GI bleeding, ileostomy, hx of DVT and PE treated with Pradaxa with frequent bowel movements and history of GI bleeds Plan: Frequent Bowel movements Hx of GI bleed Hx of GERD Hx of small bowel resection with ileostomy Hx of colostomy Hx of DVT and PE without anticoagulation - C. diff ag and toxin negative - Abdominal Xray: Possible air fluid levels, - Abd/Pelvis CT: Stomach is distended with air fluid level, large bowel dilatation, colon dilated up to 5.6 cm just proximal to rectosigmoid area - Testicular Sonogram: initial interpretation negative, official report pending - Cardiology consulted and following - No signs of GI bleeding during admission - Continue to monitor - Further recommendations per Dr. Davies - Date & Time Date: 07/19/18 Time: 14:13 <Cristiane Davies V - Last Filed: 07/19/18 19:39> Meds - Medications Medications: Current Medications Heparin Sodium (Porcine) (Heparin) 5,000 units SC Q12 [facility]; Protocol Last Admin: 07/19/18 11:11 Dose: 5,000 units Vancomycin HCl (Vancomycin 1gm) 1 gm in 250 mls @ 167 mls/hr IVPB Q12H [facility]; Protocol Last Admin: 07/19/18 08:20 Dose: 167 mls/hr Piperacillin Sod/Tazobactam Sod (Zosyn 3.375 In Ns 100ml) 100 mls @ 25 mls/hr IVPB Q8 [facility]; Protocol Stop: 07/25/18 22:01 Last Admin: 07/19/18 14:10 Dose: 25 mls/hr Metoclopramide HCl (Reglan) 5 mg PO 0600,1130,1630,2200 [facility] Last Admin: 07/19/18 17:22 Dose: 5 mg Mupirocin (Bactroban Ointment) 1 gm TOP BID [facility] Last Admin: 07/19/18 17:31 Dose: 1 applic Nystatin (Nystop Topical Powder) 0 gm TOP BID [facility] Last Admin: 07/19/18 17:25 Dose: 1 appl Pantoprazole Sodium (Protonix Ec Tab) 40 mg PO 0600,1600 [facility] Last Admin: 07/19/18 17:22 Dose: 40 mg Results - Vital Signs Recent Vital Signs: Last Vital Signs Temp 98.2 F 07/19/18 14:00 Pulse 88 07/19/18 14:00 Resp 20 07/19/18 14:00 BP 102/54 L 07/19/18 08:35 Pulse Ox 97 07/19/18 14:00 - Labs Result Diagrams: 07/19/18 06:20 07/19/18 06:20 Labs: Laboratory Results - last 24 hr 07/19/18 07/19/18 07/19/18 06:20 06:20 06:20 WBC RBC Hgb Hct MCV MCH MCHC RDW Plt Count MPV Gran % Lymph % (Auto) [place] % (Auto) Eos % (Auto) Baso % (Auto) Gran # Lymph # (Auto) [place] # (Auto) Eos # (Auto) Baso # (Auto) Sodium 134 Potassium 3.8 Chloride 108 H Carbon Dioxide 24 Anion Gap 6 L BUN 9 Creatinine 0.6 L Est GFR ( Amer) > 60 Est GFR (Non-Af Amer) > 60 Random Glucose 94 Hemoglobin A1c 4.6 Calcium 7.7 L Phosphorus 2.1 L Magnesium 1.8 Iron 27 L TIBC 148 L % Saturation 18 L Total Bilirubin 0.3 AST 30 ALT 39 Alkaline Phosphatase 51 Total Protein 4.4 L Albumin 2.0 L Globulin 2.5 Albumin/Globulin Ratio 0.8 L Triglycerides 31 L Cholesterol 83 L LDL Cholesterol Direct < 30 HDL Cholesterol 57 Vitamin B12 833 Folate 15.0 TSH 3rd Generation 07/19/18 07/19/18 06:20 06:20 WBC 6.4 D RBC 3.72 Hgb 9.7 L Hct 30.2 L MCV 81.2 MCH 26.1 MCHC 32.1 RDW 18.0 H Plt Count 373 MPV 9.3 Gran % 73.6 H Lymph % (Auto) 13.0 L [place] % (Auto) 11.7 H Eos % (Auto) 1.4 L Baso % (Auto) 0.3 Gran # 4.71 Lymph # (Auto) 0.8 L [place] # (Auto) 0.8 H Eos # (Auto) 0.1 Baso # (Auto) 0.02 Sodium Potassium Chloride Carbon Dioxide Anion Gap BUN Creatinine Est GFR ( Amer) Est GFR (Non-Af Amer) Random Glucose Hemoglobin A1c Calcium Phosphorus Magnesium Iron TIBC % Saturation Total Bilirubin AST ALT Alkaline Phosphatase Total Protein Albumin Globulin Albumin/Globulin Ratio Triglycerides Cholesterol LDL Cholesterol Direct HDL Cholesterol Vitamin B12 Folate TSH 3rd Generation 3.75 Attending/Attestation - Attestation I have personally seen and examined this patient.: Yes I have fully participated in the care of the patient.: Yes I have reviewed all pertinent clinical information: Yes Notes (Text): This is an addendum to GI consult report dictated by the Atomic Physics Professor.The patient was seen and evaluated earlier. Medical records, lab studies, imagings were reviewed. Last 24 hours events reviewed. Agreed with the above treatment plan as outlined in Atomic Physics Professor 's notes with the addition of the following This patient with mentally challenged with multiple surgical procedures in the past sp partial gastrectomy Was admitted with diarrhea leg and scrotal swelling Patient has severe diarrhea Abdomen soft non tender Followup stool studies On Empiric antibiotics treatment as per ID Patient was on Pradaxa which has been discontinued on heparin as per head trimmer Followup stool for C.diff Josseline Chaudhary 07/19/18 19:32
--- NOTE | 2018-07-19 14:20 | US ---
Date of service: 07/17/2018 HISTORY: r/o tortions TECHNIQUE: Realtime sonography through the scrotum with color and doppler flow. COMPARISON: None Available. FINDINGS: RIGHT TESTICLE: Measures 4.3 x 2.9 x 2.6 cm. Homogeneous echotexture. No mass. Normal flow. RIGHT EPIDIDYMIS: Normal size, vascularity and morphology. LEFT TESTICLE: Measures 4.5 x 2.9 x 2.8 cm. Homogeneous echotexture. No mass. Normal flow. LEFT EPIDIDYMIS: Normal size, morphology and vascularity.. HYDROCELE: Bilateral mild hydrocele. VARICOCELE: None. OTHER FINDINGS: Extensive scrotal edema with hypervascularity suggestive of possible cellulitis. Correlate clinically. IMPRESSION: Possible scrotal cellulitis. Small bilateral hydrocele. No evidence of testicular torsion.
[2018-07-19] MEDS ORDERED: Potassium Chloride 20 mEq ER Tab PO ONE (15:16)
[2018-07-19] MEDS: Mupirocin 2% Ointment 15 GM TUBE TOP SCH (17:31)
--- NOTE | 2018-07-19 21:21 | CP.PCM.PN ---
Subjective - Date & Time of Evaluation Date of Evaluation: 07/19/18 Time of Evaluation: 11:15 - Subjective Subjective: No fevers, not in distress. Objective - Vital Signs/Intake and Output Vital Signs (last 24 hours): Temp Pulse Resp BP Pulse Ox 98.2 F 88 20 102/54 L 97 07/19/18 14:00 07/19/18 14:00 07/19/18 14:00 07/19/18 08:35 07/19/18 14:00 Intake and Output: 07/19/18 07/20/18 18:59 06:59 Intake Total 720 600 Output Total 2 Balance 720 598 - Medications Medications: Current Medications Heparin Sodium (Porcine) (Heparin) 5,000 units SC Q12 [facility]; Protocol Last Admin: 07/19/18 21:04 Dose: 5,000 units Vancomycin HCl (Vancomycin 1gm) 1 gm in 250 mls @ 167 mls/hr IVPB Q12H [facility]; Protocol Last Admin: 07/19/18 21:01 Dose: 167 mls/hr Piperacillin Sod/Tazobactam Sod (Zosyn 3.375 In Ns 100ml) 100 mls @ 25 mls/hr IVPB Q8 [facility]; Protocol Stop: 07/25/18 22:01 Last Admin: 07/19/18 21:01 Dose: 25 mls/hr Metoclopramide HCl (Reglan) 5 mg PO 0600,1130,1630,2200 [facility] Last Admin: 07/19/18 21:01 Dose: 5 mg Mupirocin (Bactroban Ointment) 1 gm TOP BID [facility] Last Admin: 07/19/18 17:31 Dose: 1 applic Nystatin (Nystop Topical Powder) 0 gm TOP BID [facility] Last Admin: 07/19/18 17:25 Dose: 1 appl Pantoprazole Sodium (Protonix Ec Tab) 40 mg PO 0600,1600 [facility] Last Admin: 07/19/18 17:22 Dose: 40 mg - Labs Labs: 07/19/18 06:20 07/19/18 06:20 PT 13.9 SECONDS (9.4-12.5) H 07/17/18 17:23 INR 1.21 07/17/18 17:23 APTT 32.5 Seconds (25.1-36.5) 07/17/18 17:23 - Constitutional Appears: No Acute Distress, Chronically Ill - Head Exam Head Exam: NORMAL INSPECTION - ENT Exam ENT Exam: Mucous Membranes Moist - Respiratory Exam Respiratory Exam: Decreased Breath Sounds - Cardiovascular Exam Cardiovascular Exam: +S1, +S2 - GI/Abdominal Exam GI & Abdominal Exam: Soft. absent: Tenderness - Exam Exam: Scrotal Swelling (slowly decreasing) Assessment and Plan - Assessment and Plan (Free Text) Plan: Assessment right leg and testes swelling, consider cellulitis, no note of DVT or hydrocoele partial large bowel obstruction (rectosigmoid area) as seen on CT A/P history of Left lower lobe HCAP as well as Influenza S/P Severe sepsis due to right leg cellulitis with associated DVT distal colonic obstruction GERD chronic anemia anxiety history of SBO history of recurrent pneumonia Plan continue Vancomycin and Zosyn day 2 and will continue to monitor clinically reviewed ultrasound of right leg and testes reviewed CT A/P blood cx are negative
[2018-07-20] MEDS: Piperacillin/Tazobact 3.375 gm 100 ML IVPB SCH ×3 (05:39→21:24)
[2018-07-20] MEDS: Pantoprazole 40 mg EC Tab PO SCH ×2 (05:39→17:46)
--- NOTE | 2018-07-20 07:52 | PN ---
DATE: 07/19/2018 SUBJECTIVE: The patient was seen and examined on the bedside on 07/19/2018. Looking comfortable. No fever. No chills. Not in any distress, but still testicles are swollen. Called consult with Dr. Dane Alexander, waiting for the input. The patient is a very poor historian. PHYSICAL EXAMINATION: VITAL SIGNS: Temperature 98.2, pulse 88, respiratory rate 20, blood pressure 102/54, pulse oximetry 97. HEENT: Head: Normocephalic, atraumatic. Eyes: PERRLA. Extraocular muscles intact. Conjunctivae clear. Nose patent. Mucous membrane moist. NECK: Supple. No carotid bruit. No JVD or thyromegaly. CHEST: Bilaterally symmetrical. HEART: S1 and S2 positive. LUNGS: Clear to auscultation. ABDOMEN: Soft. Bowel sounds positive. No organomegaly. EXTREMITIES: Upper extremity, no edema, no cyanosis. Lower extremities, trace edema. NEUROLOGICAL: The patient is awake and alert. Moving all 4 extremities. No focal deficits. MEDICATIONS: Heparin, vancomycin, Zosyn, Reglan, Bactroban cream, pantoprazole. LABORATORY DATA: White blood cells 6.4, hemoglobin 9.5, hematocrit 38.2, platelets 373. Sodium 135, potassium 3.8, BUN 9, creatinine 0.6, glucose 94. ASSESSMENT AND PLAN: Mr. Sean Dee, 48-year-old male with anemia, hyperchloremia, has right leg and testicle swelling, consider cellulitis. No note for deep venous thrombosis and hydrocele. Partially large bowel obstruction, retrosigmoid area that was seen on CTAP, history of left lower lobe pneu. influenza, history of severe sepsis due to right leg cellulitis with secondary deep venous thrombosis, distal colonic obstruction, gastroesophageal reflux disease, dyspepsia, chronic anemia, anxiety, history of small bowel obstruction, history of recurrent pneumonia. The patient is mentally retarded. Continue vancomycin, Zosyn, day 2 and we will continue monitor clinically. Reviewed ultrasound of the right leg and testicles. Reviewed CT scan. Blood cultures are negative. Cardiology consult with testicular swelling. Seen by Dr. Davies for intractable diarrhea. The patient is mentally disabled, history of colitis, colostomy, history of gastrointestinal bleeding, ileostomy and reversal, history of pulmonary embolism and deep venous thrombosis with Pradaxa with frequent bowel movements and history of gastrointestinal bleeding. Clostridium difficile antigens and toxin negative. Abdominal x-ray, possible air fluid level. Abdominal and pelvis CAT scan done, reviewed by me. interpretation negative, official report pending. Cardiology consult and followup. No signs of overt gastrointestinal bleeding right now. Continue monitoring the patient. The patient has severe diarrhea. Abdomen soft, nontender. Follow up stool studies. On empiric antibiotic treatment as Infectious Disease. The patient was on Pradaxa, which has been discontinued and heparin as per governor assembler. Follow up Clostridium difficile toxin. Consider Questran. Repeat labs. We will follow up. Meme Rey MD MTDD
--- NOTE | 2018-07-20 08:29 | PN ---
DATE: 07/19/2018 This note is dictated as an addendum to the initial progress note dictated by our nurse practitioner. The patient is comfortable. History of pulmonary embolism, noncompliant with medication, now on Pradaxa 75 mg b.i.d. CVA status is stable. We will discontinue telemetry. Last echo on 07/17/2018 shows ejection fraction 55% to 60%, mild tricuspid regurgitation, mild pulmonary insufficiency. RV systolic pressure 33. Aggressive medical treatment. No further cardiac workup is planned. The patient is okay to be discharged from Cardiology point of view when stable medically. No further cardiac workup is planned or warranted. We will give 40 of KCl to supplement potassium and we will sign off and glad to follow p.r.n. We will supplement potassium and sign off the case. Eber Berry MD
[2018-07-20] MEDS: Vancomycin 1gm in NS 250ml 1 GM/250 ML BAG IVPB SCH ×2 (10:19→21:24)
[2018-07-20] MEDS: Mupirocin 2% Ointment 15 GM TUBE TOP SCH ×2 (10:19→17:47)
[2018-07-20] MEDS: Nystatin 100,000 Units/gm Topical Pow(15 gm) TOP SCH ×2 (12:26→17:46)
--- NOTE | 2018-07-20 16:08 | CP.PCM.PN ---
<Roberto Mars - Last Filed: 07/20/18 16:09> Subjective - Date & Time of Evaluation Date of Evaluation: 07/20/18 Time of Evaluation: 08:45 - Subjective Subjective: Stevan Mars DO PGY2 IM Resident - GI progress Note Patient seen and examined this AM. No acute events reported overnight. Patient indicates continued abdominal discomfort, most notably when someone places pressure on his abdomen. Tolerating diet, passing flatus, passing bm. Objective - Vital Signs/Intake and Output Vital Signs (last 24 hours): Temp Pulse Resp BP Pulse Ox 98 F 75 18 103/64 97 07/20/18 14:00 07/20/18 14:00 07/20/18 14:00 07/20/18 14:00 07/20/18 14:00 Intake and Output: 07/20/18 07/20/18 06:59 18:59 Intake Total 600 1080 Output Total 2 Balance 598 1080 - Medications Medications: Current Medications Heparin Sodium (Porcine) (Heparin) 5,000 units SC Q12 [facility]; Protocol Last Admin: 07/20/18 12:26 Dose: 5,000 units Vancomycin HCl (Vancomycin 1gm) 1 gm in 250 mls @ 167 mls/hr IVPB Q12H [facility]; Protocol Last Admin: 07/20/18 10:19 Dose: 167 mls/hr Piperacillin Sod/Tazobactam Sod (Zosyn 3.375 In Ns 100ml) 100 mls @ 25 mls/hr IVPB Q8 [facility]; Protocol Stop: 07/25/18 22:01 Last Admin: 07/20/18 14:20 Dose: 25 mls/hr Metoclopramide HCl (Reglan) 5 mg PO 0600,1130,1630,2200 [facility] Last Admin: 07/20/18 12:27 Dose: 5 mg Mupirocin (Bactroban Ointment) 1 gm TOP BID [facility] Last Admin: 07/20/18 10:19 Dose: 1 applic Nystatin (Nystop Topical Powder) 0 gm TOP BID [facility] Last Admin: 07/20/18 12:26 Dose: 1 appl Pantoprazole Sodium (Protonix Ec Tab) 40 mg PO 0600,1600 [facility] Last Admin: 07/20/18 05:39 Dose: 40 mg - Labs Labs: 07/19/18 06:20 07/19/18 06:20 PT 13.9 SECONDS (9.4-12.5) H 07/17/18 17:23 INR 1.21 07/17/18 17:23 APTT 32.5 Seconds (25.1-36.5) 07/17/18 17:23 - Constitutional Appears: No Acute Distress, Older Than Stated Age - Head Exam Head Exam: ATRAUMATIC, NORMAL INSPECTION, NORMOCEPHALIC - Eye Exam Eye Exam: EOMI, PERRL - ENT Exam ENT Exam: Mucous Membranes Moist - Respiratory Exam Respiratory Exam: Clear to Ausculation Bilateral, NORMAL BREATHING PATTERN - Cardiovascular Exam Cardiovascular Exam: REGULAR RHYTHM, +S1, +S2 - GI/Abdominal Exam GI & Abdominal Exam: Soft, Tenderness (diffuse tenderness ), Normal Bowel Sounds. absent: Firm, Guarding, Rigid - Extremities Exam Additional comments: leg swelling 1+ edema, bilaterally - Back Exam Back Exam: NORMAL INSPECTION - Neurological Exam Neurological Exam: Alert, Awake, Oriented x3 Neuro motor strength exam: Left Upper Extremity: 5, Right Upper Extremity: 5, Left Lower Extremity: 5, Right Lower Extremity: 5 - Psychiatric Exam Psychiatric exam: Flat Affect - Skin Skin Exam: Dry, Intact Additional comments: patient noted to be pale skin color Assessment and Plan - Assessment and Plan (Free Text) Assessment: 48 year old male with past medical history of mental disability, anemia, colitis, colostomy, history of GI bleeding, ileostomy, hx of DVT and PE treated with Pradaxa with frequent bowel movements and history of GI bleeds Plan: Frequent Bowel movements Hx of GI bleed Hx of GERD Hx of small bowel resection with ileostomy Hx of colostomy Hx of DVT and PE without anticoagulation - C. diff ag and toxin negative - Abd/Pelvis CT: Stomach is distended with air fluid level, large bowel dilatation, colon dilated up to 5.6 cm just proximal to rectosigmoid area - Testicular Sonogram: initial interpretation negative, official report pending - Cardiology consulted and following - H/H stable at this time, no reports of bloody bowel movement - - Further recommendations per Dr. Daveis <Cristiane Davies V - Last Filed: 07/20/18 22:51> Objective - Vital Signs/Intake and Output Vital Signs (last 24 hours): Temp Pulse Resp BP Pulse Ox 98 F 75 18 103/64 97 07/20/18 14:00 07/20/18 14:00 07/20/18 14:00 07/20/18 14:00 07/20/18 14:00 Intake and Output: 07/20/18 07/21/18 18:59 06:59 Intake Total 1700 Output Total 150 Balance 1550 - Medications Medications: Current Medications Heparin Sodium (Porcine) (Heparin) 5,000 units SC Q12 [facility]; Protocol Last Admin: 07/20/18 21:24 Dose: 5,000 units Vancomycin HCl (Vancomycin 1gm) 1 gm in 250 mls @ 167 mls/hr IVPB Q12H [facility]; Protocol Last Admin: 07/20/18 21:24 Dose: 167 mls/hr Piperacillin Sod/Tazobactam Sod (Zosyn 3.375 In Ns 100ml) 100 mls @ 25 mls/hr I VPB Q8 [facility]; Protocol Stop: 07/25/18 22:01 Last Admin: 07/20/18 21:24 Dose: 25 mls/hr Metoclopramide HCl (Reglan) 5 mg PO 0600,1130,1630,2200 [facility] Last Admin: 07/20/18 21:24 Dose: 5 mg Mupirocin (Bactroban Ointment) 1 gm TOP BID [facility] Last Admin: 07/20/18 17:47 Dose: 1 applic Nystatin (Nystop Topical Powder) 0 gm TOP BID [facility] Last Admin: 07/20/18 17:46 Dose: 1 appl Pantoprazole Sodium (Protonix Ec Tab) 40 mg PO 0600,1600 [facility] Last Admin: 07/20/18 17:46 Dose: 40 mg - Labs Labs: 07/19/18 06:20 07/19/18 06:20 PT 13.9 SECONDS (9.4-12.5) H 07/17/18 17:23 INR 1.21 07/17/18 17:23 APTT 32.5 Seconds (25.1-36.5) 07/17/18 17:23 Attending/Attestation - Attestation I have personally seen and examined this patient.: Yes I have fully participated in the care of the patient.: Yes I have reviewed all pertinent clinical information, including history, physical exam and plan: Yes Notes (Text): This is an addendum to GI followup report dictated by the Electrical Prospector. The patient was seen and evaluated earlier. Medical records, lab studies, imagings were reviewed. Last 24 hours events reviewed. Agreed with the above treatment plan as outlined in Electrical Prospector 's notes with the addition of the following CT scan was reviewed The stricture appeared to be at inthe anastomosis and this was evaluated durin this patient's last admissio the scope could be passed through the stricture with minimal difficulty. No dilation was attempted in view of superficial ulcerations of the margin Status post dilations in the past status post partial gastrectomy patient can be started on low-dose Questran and adjust the dosage for loose bowel movements continue by mouth Vanco History of DVT patient was on Pradaxa Gross follow-up of hemoglobin 07/20/18 22:50
--- NOTE | 2018-07-20 17:13 | CP.PCM.PN ---
Subjective - Date & Time of Evaluation Date of Evaluation: 07/20/18 Time of Evaluation: 12:00 - Subjective Subjective: No fevers, not in distress, afebrile. Right leg and testes swelling are starting to improve. Objective - Vital Signs/Intake and Output Vital Signs (last 24 hours): Temp Pulse Resp BP Pulse Ox 98 F 64 18 105/53 L 96 07/20/18 06:00 07/20/18 06:00 07/20/18 06:00 07/20/18 06:00 07/20/18 06:00 Intake and Output: 07/20/18 07/20/18 06:59 18:59 Intake Total 600 Output Total 2 Balance 598 - Medications Medications: Current Medications Heparin Sodium (Porcine) (Heparin) 5,000 units SC Q12 ETHAN; Protocol Last Admin: 07/19/18 21:04 Dose: 5,000 units Vancomycin HCl (Vancomycin 1gm) 1 gm in 250 mls @ 167 mls/hr IVPB Q12H ETHAN; Protocol Last Admin: 07/20/18 10:19 Dose: 167 mls/hr Piperacillin Sod/Tazobactam Sod (Zosyn 3.375 In Ns 100ml) 100 mls @ 25 mls/hr IVPB Q8 ETHAN; Protocol Stop: 07/25/18 22:01 Last Admin: 07/20/18 05:39 Dose: 25 mls/hr Metoclopramide HCl (Reglan) 5 mg PO 0600,1130,1630,2200 ETHAN Last Admin: 07/20/18 05:39 Dose: 5 mg Mupirocin (Bactroban Ointment) 1 gm TOP BID ETHAN Last Admin: 07/20/18 10:19 Dose: 1 applic Nystatin (Nystop Topical Powder) 0 gm TOP BID ETHAN Last Admin: 07/19/18 17:25 Dose: 1 appl Pantoprazole Sodium (Protonix Ec Tab) 40 mg PO 0600,1600 ETHAN Last Admin: 07/20/18 05:39 Dose: 40 mg - Labs Labs: 07/19/18 06:20 07/19/18 06:20 PT 13.9 SECONDS (9.4-12.5) H 07/17/18 17:23 INR 1.21 07/17/18 17:23 APTT 32.5 Seconds (25.1-36.5) 07/17/18 17:23 - Constitutional Appears: No Acute Distress, Cachectic, Chronically Ill - Head Exam Head Exam: NORMAL INSPECTION - Respiratory Exam Respiratory Exam: Decreased Breath Sounds - Cardiovascular Exam Cardiovascular Exam: +S1, +S2 - GI/Abdominal Exam GI & Abdominal Exam: Soft. absent: Tenderness - Exam Exam: Scrotal Swelling (slowly decreasing) Assessment and Plan - Assessment and Plan (Free Text) Plan: Assessment right leg and testes swelling, consider cellulitis, no note of DVT or hydrocoele partial large bowel obstruction (rectosigmoid area) as seen on CT A/P history of Left lower lobe HCAP as well as Influenza S/P Severe sepsis due to right leg cellulitis with associated DVT distal colonic obstruction GERD chronic anemia anxiety history of SBO history of recurrent pneumonia Plan continue Vancomycin and Zosyn day 3 and will continue to monitor clinically reviewed ultrasound of right leg and testes reviewed CT A/P blood cx are negative
[2018-07-21] MEDS: Pantoprazole 40 mg EC Tab PO SCH ×2 (05:25→17:20)
[2018-07-21] MEDS: Piperacillin/Tazobact 3.375 gm 100 ML IVPB SCH ×3 (05:25→21:53)
--- NOTE | 2018-07-21 06:14 | PN ---
DATE: 07/20/2018 SUBJECTIVE: Patient is a [id number] male. Patient was seen on 07/20/2018, looking comfortable. No nausea, vomiting, but still has diarrhea. No fever. No chills. Has rash on the buttocks, not in distress. Right leg and testicles swollen, are starting to improve. PHYSICAL EXAMINATION: VITAL SIGNS: Temperature 98, pulse 64, respiratory rate 18, blood pressure 105/53, pulse oximetry 96. HEENT: Head: Normocephalic, atraumatic. Eyes: PERRLA. Extraocular muscles intact. Conjunctivae clear. Nose patent. Mucous membrane moist. NECK: Supple. No carotid bruit. No JVD or thyromegaly. CHEST: Bilaterally symmetrical. HEART: S1 and S2 positive. LUNGS: Clear to auscultation. ABDOMEN: Soft. Bowel sounds present. No organomegaly. EXTREMITIES: No edema, no cyanosis. NEUROLOGICAL: The patient is awake and alert. Moving all 4 extremities. No focal deficits. MEDICATIONS: Vancomycin, Zosyn, Reglan, Bactroban, nystatin, Protonix. LABORATORY DATA: White blood cells 6.4, hemoglobin 9.7, hematocrit 30.2, platelets 373. Sodium 135, potassium 3.8, BUN 9, creatinine 0.6, glucose 94. ASSESSMENT AND PLAN: Mr. Sean Dee is a 48-year-old male with anemia, hyperchloremia, has right leg and testicle swelling, consider cellulitis. No note of deep venous thrombosis or hydrocele. Partial large bowel obstruction retrosigmoidal area as seen on CT, history of left lower lobe healthcare-associated pneumonia as well as influenza, especially has sepsis due to right leg cellulitis associated with deep venous thrombosis, distal colonic obstruction, gastroesophageal reflux disease, chronic anemia, anxiety, history of blood transfusion, history of small bowel obstruction, history of recurrent pneumonia. Continue vancomycin and Zosyn day #3 and will continue monitor clinically. I reviewed the CAT scan, ultrasound. Blood cultures are negative. Continue antibiotics as per Infectious Disease, seen by GI, Dr. Davies. Patient is having intractable diarrhea and even getting excoriation of the skin. GI is on the case. Patient is mentally challenged, history of colitis, history of gastrointestinal bleeding, history of pulmonary embolism, getting treatment with Pradaxa and frequent bowel movement. Clostridium difficile antigen and toxin are negative. CT of the stomach shows distension with air fluid level, large bowel dilatation, colon dilatation up to 5.6 cm, retrosigmoid area. 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 The scope could be passed through the stricture with minimal difficulty. No dilatation was attempted in view of the superficial excision of the margins dilatation in the past. There was partial gastrectomy. Patient can be started on low-dose Questran. Adjusted the dose for bowel movement. Continue by mouth vancomycin. Discussion done with Dr. Davies. We will follow up. Meme Rey MD MTDD
[2018-07-21] MEDS: Vancomycin 1gm in NS 250ml 1 GM/250 ML BAG IVPB SCH ×2 (08:55→21:53)
[2018-07-21] MEDS: Mupirocin 2% Ointment 15 GM TUBE TOP SCH ×2 (10:58→17:21)
[2018-07-21] MEDS: Cholestyramine 4 gm/Pkt UD PO SCH (10:59)
[2018-07-21] MEDS: Nystatin 100,000 Units/gm Topical Pow(15 gm) TOP SCH ×2 (10:59→17:20)
--- NOTE | 2018-07-21 11:18 | CP.PCM.PN ---
<Samantha Waldron - Last Filed: 07/21/18 11:16> Subjective - Date & Time of Evaluation Date of Evaluation: 07/21/18 Time of Evaluation: 10:25 - Subjective Subjective: S&E at bedside, chart reviewed. No acute overnight events reported. Patient denies pain, he is reported to have good appetite, has BM after eating, no reports of GI bleeding. Objective - Vital Signs/Intake and Output Vital Signs (last 24 hours): Temp Pulse Resp BP Pulse Ox 98.2 F 93 H 20 108/70 95 07/21/18 06:00 07/21/18 06:00 07/21/18 06:00 07/21/18 06:00 07/21/18 06:00 Intake and Output: 07/21/18 07/21/18 06:59 18:59 Intake Total 360 420 Output Total 3 Balance 357 420 - Medications Medications: Current Medications Cholestyramine Resin (Questran) 4 gm PO DAILY ETHAN Last Admin: 07/21/18 10:59 Dose: 4 gm Heparin Sodium (Porcine) (Heparin) 5,000 units SC Q12 ETHAN; Protocol Last Admin: 07/21/18 10:58 Dose: 5,000 units Vancomycin HCl (Vancomycin 1gm) 1 gm in 250 mls @ 167 mls/hr IVPB Q12H ETHAN; Protocol Last Admin: 07/21/18 08:55 Dose: 167 mls/hr Piperacillin Sod/Tazobactam Sod (Zosyn 3.375 In Ns 100ml) 100 mls @ 25 mls/hr IVPB Q8 ETHAN; Protocol Stop: 07/25/18 22:01 Last Admin: 07/21/18 05:25 Dose: 25 mls/hr Metoclopramide HCl (Reglan) 5 mg PO 0600,1130,1630,2200 ETHAN Last Admin: 07/21/18 10:59 Dose: 5 mg Mupirocin (Bactroban Ointment) 1 gm TOP BID ETHAN Last Admin: 07/21/18 10:58 Dose: 1 applic Nystatin (Nystop Topical Powder) 0 gm TOP BID ETAHN Last Admin: 07/21/18 10:59 Dose: 1 appl Pantoprazole Sodium (Protonix Ec Tab) 40 mg PO 0600,1600 ETHAN Last Admin: 07/21/18 05:25 Dose: 40 mg - Labs Labs: 07/19/18 06:20 07/19/18 06:20 PT 13.9 SECONDS (9.4-12.5) H 07/17/18 17:23 INR 1.21 07/17/18 17:23 APTT 32.5 Seconds (25.1-36.5) 07/17/18 17:23 - Constitutional Appears: No Acute Distress - Head Exam Head Exam: NORMOCEPHALIC - Eye Exam Eye Exam: Normal appearance. absent: Scleral icterus - ENT Exam ENT Exam: Mucous Membranes Moist - Neck Exam Neck Exam: Normal Inspection - Respiratory Exam Respiratory Exam: NORMAL BREATHING PATTERN. absent: Respiratory Distress - Cardiovascular Exam Cardiovascular Exam: +S1, +S2 - GI/Abdominal Exam GI & Abdominal Exam: Soft, Normal Bowel Sounds. 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 diff ag and toxin negative On Questran continue PPI On Heparin SQ On IV antibiotics Abd/Pelvis CT: Stomach is distended with air fluid level, large bowel dilatation, colon dilated up to 5.6 cm just proximal to rectosigmoid area Testicular Sonogram: initial interpretation negative, official report pending Cardiology consulted and following H/H stable at this time, no reports of bloody bowel movement diet as tolerated Seen and discussed w/ Dr. Davies. <Cristiane Davies V - Last Filed: 07/21/18 23:51> Objective - Vital Signs/Intake and Output Vital Signs (last 24 hours): Temp Pulse Resp BP Pulse Ox 97.4 F L 86 20 107/67 96 07/21/18 22:00 07/21/18 22:00 07/21/18 22:00 07/21/18 22:00 07/21/18 22:00 Intake and Output: 07/21/18 07/22/18 18:59 06:59 Intake Total 420 480 Output Total 300 Balance 420 180 - Medications Medications: Current Medications Cholestyramine Resin (Questran) 4 gm PO DAILY ETHAN Last Admin: 07/21/18 10:59 Dose: 4 gm Heparin Sodium (Porcine) (Heparin) 5,000 units SC Q12 ETHAN; Protocol Last Admin: 07/21/18 21:53 Dose: 5,000 units Vancomycin HCl (Vancomycin 1gm) 1 gm in 250 mls @ 167 mls/hr IVPB Q12H ETHAN; Protocol Last Admin: 07/21/18 21:53 Dose: 167 mls/hr Piperacillin Sod/Tazobactam Sod (Zosyn 3.375 In Ns 100ml) 100 mls @ 25 mls/hr IVPB Q8 ETHAN; Protocol Stop: 07/25/18 22:01 Last Admin: 07/21/18 21:53 Dose: 25 mls/hr Metoclopramide HCl (Reglan) 5 mg PO 0600,1130,1630,2200 ETHAN Last Admin: 07/21/18 21:53 Dose: 5 mg Mupirocin (Bactroban Ointment) 1 gm TOP BID ETHAN Last Admin: 07/21/18 17:21 Dose: 1 applic Nystatin (Nystop Topical Powder) 0 gm TOP BID ETHAN Last Admin: 07/21/18 17:20 Dose: 1 appl Pantoprazole Sodium (Protonix Ec Tab) 40 mg PO 0600,1600 ETHAN Last Admin: 07/21/18 17:20 Dose: 40 mg - Labs Labs: 07/19/18 06:20 07/19/18 06:20 PT 13.9 SECONDS (9.4-12.5) H 07/17/18 17:23 INR 1.21 07/17/18 17:23 APTT 32.5 Seconds (25.1-36.5) 07/17/18 17:23 Attending/Attestation - Attestation I have personally seen and examined this patient.: Yes I have fully participated in the care of the patient.: Yes I have reviewed all pertinent clinical information, including history, physical exam and plan: Yes Notes (Text): This is an addendum to GI progress report dictated by Samantha Waldron APN.The patient was seen and examined earlier. Medical records, lab studies, imagings were reviewed. Last 24 hours events reviewed. Agreed with the above treatment plan as outlined in Samantha Waldron APN's notes with the addition of the following diarrhea showed some improvement Patient has ulceration at the anastomotic area in the distal colon But the margins of the anastomosis appears to be inflamed with ulcerations The scope could be passed easily through the stenosis with ulcerated margins Dilation of the stricture has to be avoided now in view of the ulcerated margin 07/21/18 23:51
--- NOTE | 2018-07-21 17:11 | CP.PCM.PN ---
Subjective - Date & Time of Evaluation Date of Evaluation: 07/21/18 Time of Evaluation: 12:10 - Subjective Subjective: Afebrile, not in distress. Objective - Vital Signs/Intake and Output Vital Signs (last 24 hours): Temp Pulse Resp BP Pulse Ox 97.7 F 92 H 20 102/69 96 07/20/18 22:37 07/20/18 22:37 07/20/18 22:37 07/20/18 22:37 07/20/18 22:37 Intake and Output: 07/21/18 07/21/18 06:59 18:59 Intake Total 360 Output Total 3 Balance 357 - Medications Medications: Current Medications Cholestyramine Resin (Questran) 4 gm PO DAILY ETHAN Heparin Sodium (Porcine) (Heparin) 5,000 units SC Q12 ETHAN; Protocol Last Admin: 07/20/18 21:24 Dose: 5,000 units Vancomycin HCl (Vancomycin 1gm) 1 gm in 250 mls @ 167 mls/hr IVPB Q12H ETHAN; Protocol Last Admin: 07/20/18 21:24 Dose: 167 mls/hr Piperacillin Sod/Tazobactam Sod (Zosyn 3.375 In Ns 100ml) 100 mls @ 25 mls/hr IVPB Q8 ETHAN; Protocol Stop: 07/25/18 22:01 Last Admin: 07/21/18 05:25 Dose: 25 mls/hr Metoclopramide HCl (Reglan) 5 mg PO 0600,1130,1630,2200 ETHAN Last Admin: 07/21/18 05:25 Dose: 5 mg Mupirocin (Bactroban Ointment) 1 gm TOP BID ETHAN Last Admin: 07/20/18 17:47 Dose: 1 applic Nystatin (Nystop Topical Powder) 0 gm TOP BID ETHAN Last Admin: 07/20/18 17:46 Dose: 1 appl Pantoprazole Sodium (Protonix Ec Tab) 40 mg PO 0600,1600 ETHAN Last Admin: 07/21/18 05:25 Dose: 40 mg - Labs Labs: 07/19/18 06:20 07/19/18 06:20 PT 13.9 SECONDS (9.4-12.5) H 07/17/18 17:23 INR 1.21 07/17/18 17:23 APTT 32.5 Seconds (25.1-36.5) 07/17/18 17:23 - Constitutional Appears: No Acute Distress, Cachectic, Chronically Ill - Head Exam Head Exam: NORMAL INSPECTION - Neck Exam Neck Exam: absent: Meningismus - Respiratory Exam Respiratory Exam: Decreased Breath Sounds - Cardiovascular Exam Cardiovascular Exam: +S1, +S2 - GI/Abdominal Exam GI & Abdominal Exam: Soft. absent: Tenderness - Extremities Exam Additional comments: decreased swelling of the right leg and scrotal area Assessment and Plan - Assessment and Plan (Free Text) Plan: Assessment right leg and testes swelling, consider cellulitis, no note of DVT or hydrocoele partial large bowel obstruction (rectosigmoid area) as seen on CT A/P history of Left lower lobe HCAP as well as Influenza S/P Severe sepsis due to right leg cellulitis with associated DVT distal colonic obstruction GERD chronic anemia anxiety history of SBO history of recurrent pneumonia Plan continue Vancomycin and Zosyn day 4 and will continue to monitor clinically - may change to PO antibiotics when ready to be discharged reviewed ultrasound of right leg and testes reviewed CT A/P blood cx are negative
--- NOTE | 2018-07-21 23:09 | PN ---
DATE: 07/21/2018 FOLLOWUP NOTE SUBJECTIVE: He is restless in the bed. Pulling out the Quantum catheter. He is also pulling his diaper out. No fever. No cough with expectoration. No bleeding. Evaluated by GI for colonic dilatation. No plan for colonic dilatation yet. He has history of DVT, currently on heparin 5000 every 12. He was sent home on Pradaxa because of noncompliance issue with the Coumadin monitoring. He has severe iron deficiency anemia. Hemoglobin and hematocrit stable now at 9.7. REVIEW OF SYSTEMS: As per HPI. Rest of 12-point review of systems reviewed negative. PHYSICAL EXAMINATION: GENERAL: Restless in bed, pulling out the catheter. VITAL SIGNS: Temperature 98.1, heart rate 100 per minute, blood pressure 100/66, respiratory rate 18 per minute, oxygen saturation 96% on room air. HEENT: Pallor positive. NECK: No lymphadenopathy. CHEST: Air entry present and equal bilateral. No added sound. CARDIOVASCULAR: S1, S2 normal. No murmur. No gallop. ABDOMEN: Soft, nontender. No hepatosplenomegaly. EXTREMITY: No edema. SKIN: Pallor positive. 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 LABORATORY DATA: White count 6.4, hemoglobin 9.7, hematocrit 30.2, platelet 373. Sodium 134, potassium 3.8, creatinine 0.6, iron 27. ASSESSMENT AND PLAN: 1. Colonic distention, currently on conservative treatment. We will continue heparin 5000 every 12. Upon discharge, he can be transitioned to Pradaxa 75 mg p.o. b.i.d. 2. Iron deficiency anemia. Hemoglobin and hematocrit stable now. He received 2 units of blood transfusion during the last hospitalization. 3. Chronic deep venous thrombosis in right lower extremity. 4. Failure to thrive, mental retardation. 5. Infectious disease: Clostridium difficile negative. Thank you, Dr. Rey for allowing us to participate in Mr. Dee's care. Candace Murillo MD
--- NOTE | 2018-07-22 04:57 | PN ---
DATE: 07/21/2018 SUBJECTIVE: The patient is a 48-year-old male. The patient was seen and examined on the bedside on 07/21/2018. Looking comfortable. Swelling of the legs is better. No acute event happened overnight. The patient is a very poor historian, but looks like he is not in distress. PHYSICAL EXAMINATION: VITAL SIGNS: Temperature 98.2, pulse 93, respiratory rate 20, blood pressure 108/70, pulse oximetry 95. HEENT: Head normocephalic, atraumatic. Eyes; PERRLA. Extraocular muscles intact. Conjunctivae clear. Nose patent. Mucous membrane moist. NECK: Supple. No carotid bruit. No JVD or thyromegaly. CHEST: Bilaterally symmetrical. HEART: S1 and S2 positive. LUNGS: Clear to auscultation. ABDOMEN: Soft. Bowel sounds positive. No organomegaly. EXTREMITIES: Trace edema. NEUROLOGICAL: The patient is awake and alert. Follow simple commands. MEDICATIONS: Questran, heparin, vancomycin, Zosyn, metoclopramide, , nystatin, and Protonix. LABORATORY DATA: White count 6.4, hemoglobin 9.7, hematocrit 30.2, platelet 373. Sodium 134, potassium 3.8, BUN 9, creatinine 0.6, glucose 94. ASSESSMENT AND PLAN: Mr. Sean Dee is a 48-year-old male with anemia, hyperchloremia, has diarrhea, history of gastrointestinal bleeding, gastroesophageal reflux disease, dyspepsia, small bowel obstruction with ileostomy and colostomy, history of deep venous thrombosis and pulmonary embolism without anticoagulation, Clostridium difficile toxin and antigen toxin are negative. Now started on Questran, patient is improving, continue proton pump inhibitor, on heparin and intravenous antibiotics. CAT scan reviewed. Food Adviser is on the case. Saphenous venogram showed initial interpretation negative, official report is still pending. Continue to monitor hemoglobin and hematocrit. Repeat labs. We will follow up. eMme Rey MD
[2018-07-22] MEDS: Pantoprazole 40 mg EC Tab PO SCH (06:01)
[2018-07-22] MEDS: Piperacillin/Tazobact 3.375 gm 100 ML IVPB SCH ×2 (06:01→14:25)
[2018-07-22 07:50] VITALS: RESP 18
[2018-07-22] MEDS: Vancomycin 1gm in NS 250ml 1 GM/250 ML BAG IVPB SCH (08:06)
[2018-07-22] MEDS: Nystatin 100,000 Units/gm Topical Pow(15 gm) TOP SCH (10:26)
[2018-07-22] MEDS: Cholestyramine 4 gm/Pkt UD PO SCH (10:31)
[2018-07-22] MEDS: Mupirocin 2% Ointment 15 GM TUBE TOP SCH (11:28)
--- NOTE | 2018-07-22 13:00 | CP.PCM.PN ---
<Roberto Mars - Last Filed: 07/22/18 13:16> Subjective - Date & Time of Evaluation Date of Evaluation: 07/22/18 Time of Evaluation: 12:57 - Subjective Subjective: Stevan Jerad PGY2 - GI Progress Note Patient seen and examined this AM. No acute events reported overnight. Patient with continued soft stool. Denies abdominal pain, nausea, vomiting. Tolerating diet. Objective - Vital Signs/Intake and Output Vital Signs (last 24 hours): Temp Pulse Resp BP Pulse Ox 98.5 F 104 H 18 118/80 97 07/22/18 06:00 07/22/18 06:00 07/22/18 06:00 07/22/18 06:00 07/22/18 06:00 Intake and Output: 07/22/18 07/22/18 06:59 18:59 Intake Total 600 Output Total 900 Balance -300 - Medications Medications: Current Medications Cholestyramine Resin (Questran) 4 gm PO DAILY ETHAN Last Admin: 07/22/18 10:31 Dose: 4 gm Dabigatran (Pradaxa) 75 mg PO BID ETHAN; Protocol Last Admin: 07/22/18 11:27 Dose: 75 mg Vancomycin HCl (Vancomycin 1gm) 1 gm in 250 mls @ 167 mls/hr IVPB Q12H ETHAN; Protocol Last Admin: 07/22/18 08:06 Dose: 167 mls/hr Piperacillin Sod/Tazobactam Sod (Zosyn 3.375 In Ns 100ml) 100 mls @ 25 mls/hr IVPB Q8 ETHAN; Protocol Stop: 07/25/18 22:01 Last Admin: 07/22/18 06:01 Dose: 25 mls/hr Metoclopramide HCl (Reglan) 5 mg PO 0600,1130,1630,2200 ETHAN Last Admin: 07/22/18 11:27 Dose: 5 mg Mupirocin (Bactroban Ointment) 1 gm TOP BID ETHAN Last Admin: 07/22/18 11:28 Dose: 1 applic Nystatin (Nystop Topical Powder) 0 gm TOP BID ETHAN Last Admin: 07/22/18 10:26 Dose: 10 appl Pantoprazole Sodium (Protonix Ec Tab) 40 mg PO 0600,1600 ETHAN Last Admin: 07/22/18 06:01 Dose: 40 mg - Labs Labs: 07/19/18 06:20 07/19/18 06:20 PT 13.9 SECONDS (9.4-12.5) H 07/17/18 17:23 INR 1.21 07/17/18 17:23 APTT 32.5 Seconds (25.1-36.5) 07/17/18 17:23 - Constitutional Appears: Cachectic - Head Exam Head Exam: ATRAUMATIC, NORMOCEPHALIC - Eye Exam Eye Exam: EOMI, PERRL - ENT Exam ENT Exam: Mucous Membranes Moist - Respiratory Exam Respiratory Exam: Clear to Ausculation Bilateral, NORMAL BREATHING PATTERN - Cardiovascular Exam Cardiovascular Exam: REGULAR RHYTHM, +S1, +S2 - GI/Abdominal Exam GI & Abdominal Exam: Soft, Normal Bowel Sounds - Extremities Exam Extremities Exam: Full ROM. absent: Pedal Edema - Neurological Exam Neurological Exam: Alert, Awake - Psychiatric Exam Psychiatric exam: Normal Affect, Normal Mood - Skin Skin Exam: Dry, Warm Assessment and Plan - Assessment and Plan (Free Text) Assessment: 48 year old male with past medical history of mental disability, anemia, colitis, colostomy, history of GI bleeding, ileostomy, hx of DVT and PE treated with Pradaxa with frequent bowel movements and history of GI bleeds. Patient continues to have passage of bowel movements without bleeds. 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 diff ag and toxin negative - On Questran -continue PPI - Continue IV antibiotics as per ID - Abd/Pelvis CT: Stomach is distended with air fluid level, large bowel dilatation, colon dilated up to 5.6 cm just proximal to rectosigmoid area - Cardiology consulted and following - H/H stable at this time, no reports of bloody bowel movement - Recommend low residue diet, avoid constipation goal for soft stool - Further recommendations as per Dr. Davies <Cristiane Davies V - Last Filed: 07/22/18 23:18> Objective - Vital Signs/Intake and Output Vital Signs (last 24 hours): Temp Pulse Resp BP Pulse Ox 98.3 F 85 18 103/66 96 07/22/18 14:00 07/22/18 14:00 07/22/18 14:00 07/22/18 14:00 07/22/18 14:00 Intake and Output: 07/22/18 07/23/18 18:59 06:59 Intake Total 480 Output Total 200 Balance 280 - Labs Labs: 07/19/18 06:20 07/19/18 06:20 PT 13.9 SECONDS (9.4-12.5) H 07/17/18 17:23 INR 1.21 07/17/18 17:23 APTT 32.5 Seconds (25.1-36.5) 07/17/18 17:23 Attending/Attestation - Attestation I have personally seen and examined this patient.: Yes I have fully participated in the care of the patient.: Yes I have reviewed all pertinent clinical information, including history, physical exam and plan: Yes Notes (Text): This is an addendum to GI followup report dictated by the Cloth Checker. The patient was seen and evaluated earlier. Medical records, lab studies, imagings were reviewed. Last 24 hours events reviewed. Agreed with the above treatment plan as outlined in Cloth Checker 's notes with the addition of the following The diarrhea is slowing down No plan for anastomotic stricture dilation in view of marginal ulcerations Followup hb anticoagulation as per hematology 07/22/18 23:16
[2018-07-22 15:22] VITALS: BP 103/66; PULSE 85; TEMP 98.3; O2SAT 96
--- NOTE | 2018-07-22 19:06 | CP.PCM.PN ---
Subjective - Date & Time of Evaluation Date of Evaluation: 07/22/18 Time of Evaluation: 12:05 - Subjective Subjective: No fevers, not in distress, less swelling of the right leg. Objective - Vital Signs/Intake and Output Vital Signs (last 24 hours): Temp Pulse Resp BP Pulse Ox 97.4 F L 86 20 107/67 96 07/21/18 22:00 07/21/18 22:00 07/21/18 22:00 07/21/18 22:00 07/21/18 22:00 Intake and Output: 07/22/18 07/22/18 06:59 18:59 Intake Total 600 Output Total 900 Balance -300 - Medications Medications: Current Medications Cholestyramine Resin (Questran) 4 gm PO DAILY [facility] Last Admin: 07/21/18 10:59 Dose: 4 gm Heparin Sodium (Porcine) (Heparin) 5,000 units SC Q12 [facility]AN; Protocol Last Admin: 07/21/18 21:53 Dose: 5,000 units Vancomycin HCl (Vancomycin 1gm) 1 gm in 250 mls @ 167 mls/hr IVPB Q12H [facility]AN; Protocol Last Admin: 07/21/18 21:53 Dose: 167 mls/hr Piperacillin Sod/Tazobactam Sod (Zosyn 3.375 In Ns 100ml) 100 mls @ 25 mls/hr IVPB Q8 [facility]AN; Protocol Stop: 07/25/18 22:01 Last Admin: 07/22/18 06:01 Dose: 25 mls/hr Metoclopramide HCl (Reglan) 5 mg PO 0600,1130,1630,2200 [facility]AN Last Admin: 07/22/18 06:01 Dose: 5 mg Mupirocin (Bactroban Ointment) 1 gm TOP BID [facility]AN Last Admin: 07/21/18 17:21 Dose: 1 applic Nystatin (Nystop Topical Powder) 0 gm TOP BID [facility]AN Last Admin: 07/21/18 17:20 Dose: 1 appl Pantoprazole Sodium (Protonix Ec Tab) 40 mg PO 0600,1600 [facility]AN Last Admin: 07/22/18 06:01 Dose: 40 mg - Labs Labs: 07/19/18 06:20 07/19/18 06:20 PT 13.9 SECONDS (9.4-12.5) H 07/17/18 17:23 INR 1.21 07/17/18 17:23 APTT 32.5 Seconds (25.1-36.5) 07/17/18 17:23 - Constitutional Appears: Cachectic, Chronically Ill - Head Exam Head Exam: NORMAL INSPECTION - Respiratory Exam Respiratory Exam: Decreased Breath Sounds - Cardiovascular Exam Cardiovascular Exam: +S1, +S2 - GI/Abdominal Exam GI & Abdominal Exam: Soft. absent: Tenderness - Extremities Exam Additional comments: right leg with decreased swelling, testes with less swelling Assessment and Plan - Assessment and Plan (Free Text) Plan: Assessment right leg and testes swelling, consider cellulitis, no note of DVT or hydrocoele partial large bowel obstruction (rectosigmoid area) as seen on CT A/P history of Left lower lobe HCAP as well as Influenza S/P Severe sepsis due to right leg cellulitis with associated DVT distal colonic obstruction GERD chronic anemia anxiety history of SBO history of recurrent pneumonia Plan on Vancomycin and Zosyn day 5 - may change to PO antibiotics when ready to be di scharged reviewed ultrasound of right leg and testes reviewed CT A/P blood cx are negative
--- NOTE | 2018-07-22 20:11 | CON ---
DATE: 07/21/2018 UROLOGY CONSULTATION REASON FOR CONSULTATION: Scrotal swelling. HISTORY OF PRESENT ILLNESS: History is from the patient and the chart. A very pleasant 48-year-old gentleman who is admitted to Dr. Rey's care. Multiple medical issues. Urology is consulted for scrotal swelling. PAST MEDICAL AND SURGICAL HISTORY: As listed on the chart, significant history. REVIEW OF SYSTEMS: As listed above. PHYSICAL EXAMINATION: GENERAL: He is a very thin notably male. ABDOMEN: Very difficult to evaluate. The remainder of the physical exam is as noted. DIAGNOSIS: Scrotal swelling. From Urology standpoint, the patient is cleared for discharge. Elevation, analgesic would be the next recommendation. I did discuss other things with the patient. No further urology intervention required during his hospital stay. But from the urology standpoint, outpatient management will be appropriate and then further plans can follow. Thank you for the Urology consult. Dane Alexander MD
--- NOTE | 2018-07-23 15:55 | CP.PCM.PN ---
Subjective - Date & Time of Evaluation Date of Evaluation: 07/23/18 Time of Evaluation: 09:15 - Subjective Subjective: Stevan Mars PGY2 - GI Progress Note Patient seen and examined this AM. No acute events overnight. Patient indicates that he has no abdominal pain, pain with defecation, issues with stooling. He is tolerating diet and reports a soft bowel movement. Objective - Vital Signs/Intake and Output Vital Signs (last 24 hours): Temp Pulse Resp BP Pulse Ox 98.3 F 85 18 103/66 96 07/22/18 14:00 07/22/18 14:00 07/22/18 14:00 07/22/18 14:00 07/22/18 14:00 - Labs Labs: 07/19/18 06:20 07/19/18 06:20 PT 13.9 SECONDS (9.4-12.5) H 07/17/18 17:23 INR 1.21 07/17/18 17:23 APTT 32.5 Seconds (25.1-36.5) 07/17/18 17:23 - Constitutional Appears: No Acute Distress, Cachectic - Head Exam Head Exam: ATRAUMATIC, NORMOCEPHALIC - Eye Exam Eye Exam: EOMI, PERRL - ENT Exam ENT Exam: Mucous Membranes Moist - Respiratory Exam Respiratory Exam: Clear to Ausculation Bilateral, NORMAL BREATHING PATTERN - Cardiovascular Exam Cardiovascular Exam: REGULAR RHYTHM, +S1, +S2 - GI/Abdominal Exam GI & Abdominal Exam: Soft, Normal Bowel Sounds - Extremities Exam Extremities Exam: absent: Pedal Edema, Tenderness - Neurological Exam Neurological Exam: Alert, Awake, Oriented x3 Neuro motor strength exam: Left Upper Extremity: 5, Right Upper Extremity: 5, Left Lower Extremity: 5, Right Lower Extremity: 5 Assessment and Plan - Assessment and Plan (Free Text) Assessment: 48 year old male with past medical history of mental disability, anemia, colitis, colostomy, history of GI bleeding, ileostomy, hx of DVT and PE treated with Pradaxa with frequent bowel movements and history of GI bleeds. Patient continues to have passage of bowel movements without bleeds. Patient transferred to TCU for deconditioning and further rehabilitation Plan: Diarrhea-resolved, C. diff ag adn toxin negative Hx of GI bleed Hx of GERD Hx of small bowel resection with ileostomy Hx of colostomy Hx of DVT and PE without anticoagulation - Continue PPI and questran - Continue IV antibiotics as per ID - Abd/Pelvis CT: Stomach is distended with air fluid level, large bowel dilatation, colon dilated up to 5.6 cm just proximal to rectosigmoid area - Cardiology consulted and following - H/H stable at this time, no reports of bloody bowel movement - Recommend low residue diet, avoid constipation goal for soft stool - Further recommendations as per Dr. Davies
== END 2018-07-22 15:32 | DRG 603 ==
LOC: ED 15:39 → ERH 23:39 → 5RNO 07-18 01:24 → OBSVTOIN 07-18 21:51
PROVIDERS: ADMIT Internal Medicine; ATTEND Internal Medicine
DX: L03.115 Cellulitis of right lower limb (principal); D68.59 Other primary thrombophilia; K59.39 Other megacolon; I82.501 Chronic embolism and thrombosis of unspecified deep veins of right lower extremity; K63.3 Ulcer of intestine; F79 Unspecified intellectual disabilities; D50.9 Iron deficiency anemia, unspecified; D63.8 Anemia in other chronic diseases classified elsewhere; M79.89 Other specified soft tissue disorders; N50.89 Other specified disorders of the male genital organs; E87.8 Other disorders of electrolyte and fluid balance, not elsewhere classified; E83.51 Hypocalcemia; E87.6 Hypokalemia; N43.3 Hydrocele, unspecified; F41.9 Anxiety disorder, unspecified; K21.9 Gastro-esophageal reflux disease without esophagitis; I07.1 Rheumatic tricuspid insufficiency; R62.7 Adult failure to thrive; Z79.01 Long term (current) use of anticoagulants; Z79.02 Long term (current) use of antithrombotics/antiplatelets; Z86.711 Personal history of pulmonary embolism; Z87.01 Personal history of pneumonia (recurrent); Z91.14 Patient's other noncompliance with medication regimen; Z93.3 Colostomy status; Z93.2 Ileostomy status; Z90.3 Acquired absence of stomach [part of]; Z90.49 Acquired absence of other specified parts of digestive tract

== ENCOUNTER 2018-07-22 15:32 | Inpatient (IN) | payer OTHER ==
[2018-07-22 17:14] VITALS: BMI 15.9
[2018-07-22] MEDS: Vancomycin 1gm in NS 250ml 1 GM/250 ML BAG IVPB SCH (18:03)
[2018-07-22] MEDS: Pantoprazole 40 mg EC Tab PO SCH (18:19)
[2018-07-22] MEDS: Nystatin 100,000 Units/gm Topical Pow(15 gm) TOP SCH (18:20)
[2018-07-22] MEDS: Mupirocin 2% Ointment 15 GM TUBE TOP SCH (18:20)
[2018-07-22] MEDS: Piperacillin/Tazobact 3.375 gm 100 ML IVPB SCH (21:23)
[2018-07-23] MEDS: Vancomycin 1gm in NS 250ml 1 GM/250 ML BAG IVPB SCH ×2 (04:57→17:56)
[2018-07-23] MEDS: Pantoprazole 40 mg EC Tab PO SCH ×2 (05:01→17:00)
[2018-07-23] MEDS: Piperacillin/Tazobact 3.375 gm 100 ML IVPB SCH ×3 (05:03→21:12)
[2018-07-23 08:08] LABS: MEAN CELL VOLUME 82.9 fl (80.0-105.0); MEAN CORPUSCULAR HEMOGLOBIN 26.5 pg (25.0-35.0); MEAN PLATELET VOLUME 9.7 fl (7.0-11.0); RBC 3.39 10^6/uL (3.5-6.1); RED CELL DISTRIBUTION WIDTH 18.8 % (11.5-14.5); WHITE BLOOD COUNT 4.5 10^3/ul (4.5-11.0)
[2018-07-23 08:29] LABS: BLOOD UREA NITROGEN 13 mg/dL (7-21); CALCIUM 7.7 mg/dL (8.4-10.5); GFR NON-AFRICAN AMERICAN > 60
[2018-07-23] MEDS: Atropine-Diphenoxylate 0.025-2.5 mg Tab PO SCH ×4 (09:19→21:03)
[2018-07-23] MEDS: Mupirocin 2% Ointment 15 GM TUBE TOP SCH ×2 (09:20→17:57)
[2018-07-23] MEDS: Nystatin 100,000 Units/gm Topical Pow(15 gm) TOP SCH ×2 (09:21→17:58)
[2018-07-23] MEDS: Cholestyramine 4 gm/Pkt UD PO SCH (09:21)
[2018-07-23] MEDS ORDERED: Potassium Chloride 20 mEq ER Tab PO ONE ×2 (15:46→20:00)
--- NOTE | 2018-07-23 16:29 | CP.PCM.PN ---
<Roberto Mars - Last Filed: 07/23/18 16:19> Subjective - Date & Time of Evaluation Date of Evaluation: 07/23/18 Time of Evaluation: 16:19 - Subjective Subjective: Stevan Jerad PGY2 - GI Progress Note Patient seen and examined this AM. Clinically unchanged. No acute events reported overnight. Objective - Vital Signs/Intake and Output Vital Signs (last 24 hours): Temp Pulse Resp BP Pulse Ox 97.5 F L 93 H 18 101/57 L 96 07/23/18 06:00 07/23/18 13:57 07/23/18 06:00 07/23/18 06:00 07/23/18 13:57 Intake and Output: 07/23/18 07/23/18 06:59 18:59 Intake Total 420 Balance 420 - Medications Medications: Current Medications Cholestyramine Resin (Questran) 4 gm PO DAILY [facility]; Protocol Last Admin: 07/23/18 09:21 Dose: 4 gm Dabigatran (Pradaxa) 75 mg PO BID ETHAN; Protocol Last Admin: 07/23/18 09:21 Dose: 75 mg Diphenoxylate HCl/Atropine (Lomotil 0.025-2.5 Mg Tablet) 1 tab PO QID [facility]AN Last Admin: 07/23/18 13:29 Dose: 1 tab Piperacillin Sod/Tazobactam Sod (Zosyn 3.375 In Ns 100ml) 100 mls @ 25 mls/hr IVPB Q8 ETHAN; Protocol Stop: 07/29/18 22:01 Last Admin: 07/23/18 13:29 Dose: 25 mls/hr Vancomycin HCl (Vancomycin 1gm) 1 gm in 250 mls @ 167 mls/hr IVPB Q12H [facility]AN; Protocol Last Admin: 07/23/18 04:57 Dose: 167 mls/hr Metoclopramide HCl (Reglan) 5 mg PO 0600,1130,1630,2200 ETHAN; Protocol Last Admin: 07/23/18 11:37 Dose: 5 mg Mupirocin (Bactroban Ointment) 0 gm TOP BID [facility]AN; Protocol Last Admin: 07/23/18 09:20 Dose: 1 applic Nystatin (Nystop Topical Powder) 1 gm TOP BID [facility]AN; Protocol Last Admin: 07/23/18 09:21 Dose: 1 dose Pantoprazole Sodium (Protonix Ec Tab) 40 mg PO 0600,1600 ETHAN; Protocol Last Admin: 07/23/18 05:01 Dose: 40 mg Potassium Chloride (K-Dur 20 Meq Er Tab) 40 meq PO ONCE ONE Stop: 07/23/18 20:01 - Labs Labs: 07/23/18 07:30 07/23/18 07:30 - Constitutional Appears: No Acute Distress - Head Exam Head Exam: ATRAUMATIC, NORMOCEPHALIC - Eye Exam Eye Exam: EOMI, PERRL - ENT Exam ENT Exam: Mucous Membranes Moist Assessment and Plan - Assessment and Plan (Free Text) Assessment: 48 year old male with past medical history of mental disability, anemia, colitis, colostomy, history of GI bleeding, ileostomy, hx of DVT and PE treated with Pradaxa with frequent bowel movements and history of GI bleeds. Patient continues to have passage of bowel movements without bleeds. Patient transferred to TCU for deconditioning and further rehabilitation Plan: Diarrhea-resolved, C. diff ag adn toxin negative Hx of GI bleed Hx of GERD Hx of small bowel resection with ileostomy Hx of colostomy Hx of DVT and PE without anticoagulation - Continue PPI and questran - Continue IV antibiotics as per ID - Abd/Pelvis CT: Stomach is distended with air fluid level, large bowel dilatation, colon dilated up to 5.6 cm just proximal to rectosigmoid area - Cardiology consulted and following - H/H stable at this time, no reports of bloody bowel movement - Recommend low residue diet, avoid constipation goal for soft stool - Ulcerations of colon present on endoscopy, hesitant to pursue aggresive measures - Okay to start anticoagulation in light of patient DVT - monitor H/H, transfuse as needed - Further recommendations as per Dr. Davies Will follow patient peripherally at this time. <Cristiane Davies V - Last Filed: 07/23/18 23:17> Objective - Vital Signs/Intake and Output Vital Signs (last 24 hours): Temp Pulse Resp BP Pulse Ox 98.1 F 80 16 93/64 L 98 07/23/18 16:00 07/23/18 16:00 07/23/18 16:00 07/23/18 16:00 07/23/18 16:00 Intake and Output: 07/23/18 07/24/18 18:59 06:59 Intake Total 420 Balance 420 - Medications Medications: Current Medications Cholestyramine Resin (Questran) 4 gm PO DAILY [facility]; Protocol Last Admin: 07/23/18 09:21 Dose: 4 gm Dabigatran (Pradaxa) 75 mg PO BID [facility]AN; Protocol Last Admin: 07/23/18 17:57 Dose: 75 mg Diphenoxylate HCl/Atropine (Lomotil 0.025-2.5 Mg Tablet) 1 tab PO QID [facility]AN Last Admin: 07/23/18 21:03 Dose: 1 tab Piperacillin Sod/Tazobactam Sod (Zosyn 3.375 In Ns 100ml) 100 mls @ 25 mls/hr IVPB Q8 [facility]AN; Protocol Stop: 07/29/18 22:01 Last Admin: 07/23/18 21:12 Dose: 25 mls/hr Vancomycin HCl (Vancomycin 1gm) 1 gm in 250 mls @ 167 mls/hr IVPB Q12H [facility]AN; Protocol Last Admin: 07/23/18 17:56 Dose: 167 mls/hr Metoclopramide HCl (Reglan) 5 mg PO 0600,1130,1630,2200 [facility]TA[facility]; Protocol Last Admin: 07/23/18 21:02 Dose: 5 mg Mupirocin (Bactroban Ointment) 0 gm TOP BID ETHAN; Protocol Last Admin: 07/23/18 17:57 Dose: 1 applic Nystatin (Nystop Topical Powder) 1 gm TOP BID ETHAN; Protocol Last Admin: 07/23/18 17:58 Dose: 1 dose Pantoprazole Sodium (Protonix Ec Tab) 40 mg PO 0600,1600 ETHAN; Protocol Last Admin: 07/23/18 17:00 Dose: 40 mg - Labs Labs: 07/23/18 07:30 07/23/18 07:30 Attending/Attestation - Attestation I have personally seen and examined this patient.: Yes I have fully participated in the care of the patient.: Yes I have reviewed all pertinent clinical information, including history, physical exam and plan: Yes Notes (Text): This is an addendum to GI followup report dictated by the Road Mixer Operator. The patient was seen and evaluated earlier. Medical records, lab studies, imagings were reviewed. Last 24 hours events reviewed. 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 Would avoid dilation at present. Follow-up hemoglobin Surgical evaluation. 07/23/18 23:14
--- NOTE | 2018-07-23 21:31 | CP.PCM.CON ---
History of Present Illness - History of Present Illness History of Present Illness: 48 year old male with PMH of GERD, chronic anemia, anxiety, history of SBO, history of recurrent pneumonia, mental disability came in to [facility] [place] initially because of swelling of the right leg and testes. He has been getting antibiotics for cellulitis and has been improving. He is now transferred to [facility] for continued medical therapy and physical rehab. Infectious Diseases consult is requested to further evaluate and manage. He is afebrile, no vomiting, no abdominal pain, no headache, no cough, no diarrhea, no dysuria. Review of Systems - Review of Systems All systems: reviewed and no additional remarkable complaints except (as per HPI) Past Patient History - Infectious Disease Hx of Infectious Diseases: None - Tetanus Immunizations Tetanus Immunization: Unknown - Past Social History Smoking Status: Never Smoked - CARDIAC Hx Cardiac Disorders: No - PULMONARY Hx Respiratory Disorders: Yes Other/Comment: aspiration pna - NEUROLOGICAL Other/Comment: mental retardation - HEENT Hx HEENT Problems: No - RENAL Hx Chronic Kidney Disease: No - ENDOCRINE/METABOLIC Hx Endocrine Disorders: No - HEMATOLOGICAL/ONCOLOGICAL Hx Blood Disorders: Yes Hx Anemia: Yes - INTEGUMENTARY Hx Dermatological Problems: Yes Other/Comment: multiple abdominal scarring - MUSCULOSKELETAL/RHEUMATOLOGICAL Hx Falls: Yes - GASTROINTESTINAL Hx Gastrointestinal Disorders: Yes Hx Colostomy: Yes (reversal) Hx Ileostomy: Yes Other/Comment: colitis - GENITOURINARY/GYNECOLOGICAL Hx Genitourinary Disorders: No - PSYCHIATRIC Other/Comment: mental retardation - SURGICAL HISTORY Other/Comment: small bowel resection - ANESTHESIA Hx Anesthesia Reactions: No Hx Malignant Hyperthermia: No Meds Allergies/Adverse Reactions: Allergies Allergy/AdvReac Type Severity Reaction Status Date / Time No Known Allergies Allergy Verified 07/22/18 16:43 - Medications Medications: Current Medications Cholestyramine Resin (Questran) 4 gm PO DAILY [facility]; Protocol Dabigatran (Pradaxa) 75 mg PO BID [facility]AN; Protocol Last Admin: 07/22/18 18:19 Dose: 75 mg Piperacillin Sod/Tazobactam Sod (Zosyn 3.375 In Ns 100ml) 100 mls @ 25 mls/hr IVPB Q8 ETHAN; Protocol Stop: 07/23/18 09:59 Vancomycin HCl (Vancomycin 1gm) 1 gm in 250 mls @ 167 mls/hr IVPB Q12H ETHAN; Pr otocol Last Admin: 07/22/18 18:03 Dose: 167 mls/hr Metoclopramide HCl (Reglan) 5 mg PO 0600,1130,1630,2200 ETHAN; Protocol Mupirocin (Bactroban Ointment) 0 gm TOP BID [facility]AN; Protocol Last Admin: 07/22/18 18:20 Dose: 1 applic Nystatin (Nystop Topical Powder) 1 gm TOP BID ETHAN; Protocol Last Admin: 07/22/18 18:20 Dose: 1 dose Pantoprazole Sodium (Protonix Ec Tab) 40 mg PO 0600,1600 ETHAN; Protocol Last Admin: 07/22/18 18:19 Dose: 40 mg Physical Exam - Constitutional Appears: Cachectic, Chronically Ill - Head Exam Head Exam: NORMAL INSPECTION - Respiratory Exam Respiratory Exam: Decreased Breath Sounds - Cardiovascular Exam Cardiovascular Exam: +S1, +S2 - GI/Abdominal Exam GI & Abdominal Exam: Soft. absent: Tenderness Results - Vital Signs Recent Vital Signs: Last Vital Signs Temp 98.3 F 07/22/18 16:51 Pulse 85 07/22/18 16:51 Resp 18 07/22/18 16:51 BP 100/63 07/22/18 16:51 Pulse Ox - Labs Result Diagrams: 07/23/18 07:30 07/23/18 07:30 Assessment & Plan - Assessment and Plan (Free Text) Plan: Assessment right leg and testes swelling, consider cellulitis, no note of DVT or hydrocoele partial large bowel obstruction (rectosigmoid area) as seen on CT A/P history of Left lower lobe HCAP as well as Influenza S/P Severe sepsis due to right leg cellulitis with associated DVT distal colonic obstruction GERD chronic anemia anxiety history of SBO history of recurrent pneumonia Plan on Vancomycin and Zosyn day 6 - complete 7 days of therapy reviewed ultrasound of right leg and testes reviewed CT A/P blood cx are negative
[2018-07-24] MEDS: Vancomycin 1gm in NS 250ml 1 GM/250 ML BAG IVPB SCH ×2 (05:15→17:38)
[2018-07-24] MEDS: Piperacillin/Tazobact 3.375 gm 100 ML IVPB SCH ×3 (05:50→21:07)
[2018-07-24] MEDS: Pantoprazole 40 mg EC Tab PO SCH ×2 (05:50→17:00)
[2018-07-24 08:30] LABS: HEMOGLOBIN 9.8 g/dL (14.0-18.0); MEAN CELL VOLUME 83.8 fl (80.0-105.0); MEAN PLATELET VOLUME 9.4 fl (7.0-11.0); RBC 3.77 10^6/uL (3.5-6.1); RED CELL DISTRIBUTION WIDTH 19.4 % (11.5-14.5); WHITE BLOOD COUNT 6.4 10^3/ul (4.5-11.0)
[2018-07-24 08:55] LABS: BLOOD UREA NITROGEN 15 mg/dL (7-21); CALCIUM 7.6 mg/dL (8.4-10.5); GFR NON-AFRICAN AMERICAN > 60
[2018-07-24] MEDS ORDERED: Atropine-Diphenoxylate 0.025-2.5 mg Tab PO ONE (09:01)
[2018-07-24] MEDS: Atropine-Diphenoxylate 0.025-2.5 mg Tab PO SCH ×3 (09:12→17:41)
[2018-07-24] MEDS: Nystatin 100,000 Units/gm Topical Pow(15 gm) TOP SCH ×2 (09:13→17:38)
[2018-07-24] MEDS: Mupirocin 2% Ointment 15 GM TUBE TOP SCH ×2 (09:13→17:39)
[2018-07-24] MEDS: Cholestyramine 4 gm/Pkt UD PO SCH (09:14)
[2018-07-24] MEDS ORDERED: Atropine-Diphenoxylate 0.025-2.5 mg Tab PO SCH (10:00)
--- NOTE | 2018-07-24 11:52 | HP ---
CHIEF COMPLAINT: Intractable diarrhea, fatigue, tired. HISTORY OF PRESENT ILLNESS: Mr. Sean Dee 48 years old male with history of GERD, dyspepsia, chronic anemia, anxiety, history of small bowel obstruction, history of recurrent pneumonia, mentally challenged who [place] [facility] [place] of swelling of the right leg and testes. He has been getting antibiotic for cellulitis and has been improving. He is now transferred to TCU for continued medical care and physical rehab and infectious disease consult is requested for further evaluation and management. ID is on the case. GI is on the case. Today, the patient is afebrile, no nausea, vomiting, abdominal pain; even the diarrhea is better, but skin with diarrhea is excoriated including the testicles. PAST MEDICAL HISTORY: As above. History of repeated aspiration pneumonia, anemia, multiple abdominal surgeries, colostomy, ileostomy, mentally retarded. ALLERGIES: THE PATIENT IS NOT ALLERGIC WITH ANY MEDICATIONS. HOME MEDICATIONS: Questran, cholestyramine, Pradaxa, Zosyn, vancomycin, Reglan, bacitracin ointment, nystatin powder, Protonix. ASSESSMENT AND PLAN: Mr. Sean Dee is 48 years old male has intractable diarrhea, Questran and cholestyramine was started. Started on Pradaxa because of history of pulmonary embolism and deep venous thrombosis. Severe anemia, status post blood transfusion; hypokalemia, replaced; hypochloremia, replaced. Deep venous thrombosis prophylaxis given cellulitis of the right leg and testes is swollen with cellulitis, unknown deep venous thrombosis or hydrocele, partial large bowel obstruction, history of left lower lobe healthcare-associated pneumonia as well as influenza; severe sepsis due to right leg cellulitis associated with deep venous thrombosis, distal colonic obstruction, gastroesophageal reflux disease, dyspepsia, chronic anemia, anxiety, history of small bowel obstruction, history of recurrent anemia. On vancomycin and on Zosyn day 6 to be completed in 7 to 10 days reviewed by ultrasound of the right leg and testicles. Gastrointestinal and deep venous thrombosis prophylaxis. Repeat labs. Discussion done with the patient's nurse also. Sean Dee will follow up. Meme Rey MD
--- NOTE | 2018-07-24 18:33 | PN ---
DATE: 07/24/2018 SUBJECTIVE: The patient is in bed, in no acute distress. PHYSICAL EXAMINATION: VITAL SIGNS: On exam, temperature is 98, blood pressure is 95/40, respiratory rate of 18, heart rate of 80. Examination of HEENT is unremarkable. NECK: Supple. LUNGS: Have decreased breath sounds. HEART: Normal S1, S2. ABDOMEN: Soft, nontender. LABORATORY DATA: Laboratory examination reveals a white count of 6.4, hemoglobin of 15, creatinine is 0.7. Review of orders reveals the patient to be on vancomycin and Zosyn. ASSESSMENT AND PLAN: A 48-year-old male with a right leg and testes swelling and cellulitis with partial large bowel obstruction seen on CAT scan in a patient with gastroesophageal reflux disease, anemia, anxiety, recurrent pneumonias, Today is day #7 of Zosyn and vancomycin. The patient did have diarrhea the day. The Clostridium difficile is reported to be negative. It will be last day of antibiotics, day #7. We will discontinue the antibiotics after today's last dose. Antwan Del Rosario MD
--- NOTE | 2018-07-25 02:40 | PN ---
DATE: 07/24/2018 SUBJECTIVE: Patient is a 48-year-old male. Patient was seen and examined on the bedside on 07/24/2018, looks like not in distress, playing with his puzzle. No fever. No chills. No hematuria or hematochezia. As per the patient's nurse, still he has bad diarrhea. I gave extra dose of Lomotil. PHYSICAL EXAMINATION: VITAL SIGNS: Temperature 97.9, pulse 87, blood pressure 104/71. HEENT: Head: Normocephalic, atraumatic. Eyes: PERRLA. Extraocular muscles intact. Conjunctivae clear. Nose patent. Mucous membrane moist. NECK: Supple. No carotid bruit. No JVD or thyromegaly. CHEST: Bilaterally symmetrical. HEART: S1 and S2 positive. LUNGS: Clear to auscultation. ABDOMEN: Soft. Bowel sounds present. No organomegaly. EXTREMITIES: No edema. No cyanosis. NEUROLOGIC: Patient is awake and alert. Moving all 4 extremities. No focal deficit. MEDICATIONS: Bactroban, Lomotil, nystatin powder,Pradaxa, Protonix, Questran, Reglan, vancomycin, Zosyn. LABORATORY DATA: White blood cells 6.4, hemoglobin 9.8, hematocrit 31.6, platelets 409. Sodium 134, potassium 3.7, BUN 15, creatinine 0.7, chloride 109, calcium 7.6. ASSESSMENT AND PLAN: Mr. Sean Dee is a 48-year-old male with anemia; hyperchloremia; hypocalcemia, we will replace calcium; history of intractable diarrhea; small bowel syndrome; started on Questran, but still patient has diarrhea, given Lomotil as needed; history of deep venous thrombosis; now has right leg and testes swelling and cellulitis with partial large bowel obstruction seen on CAT scan in the patient with gastroesophageal reflux disease; anxiety; recurrent pneumonia. Today is day #7 of Zosyn and vancomycin. The patient did have diarrhea the day. The Clostridium difficile is reported to be negative. Dr. Del Rosario discontinued the intravenous antibiotics after today's dose. Waiting for GI input. Actually, patient did seen by Dr. Cristiane Davies. Patient still has rash around the rectal area. Patient is mentally disabled. History of colostomy, colitis, gastrointestinal bleeding, ileostomy. He used to be on Coumadin because of noncompliance. We stopped the Coumadin and started on Pradaxa. Actually, I am changing the patient's medication. I put Questran and Lomotil. Waiting from gastrointestinal to start some treatment on this patient whose rectal area is getting worse already excoriated with diarrhea. Continue proton pump inhibitor. We will follow up. Meme Rey MD MTDD
[2018-07-25] MEDS: Pantoprazole 40 mg EC Tab PO SCH ×2 (06:02→16:51)
[2018-07-25] MEDS: Nystatin 100,000 Units/gm Topical Pow(15 gm) TOP SCH ×2 (10:10→18:00)
[2018-07-25] MEDS: Mupirocin 2% Ointment 15 GM TUBE TOP SCH ×2 (10:11→18:00)
[2018-07-25] MEDS: Cholestyramine 4 gm/Pkt UD PO SCH (10:12)
[2018-07-25] MEDS: Atropine-Diphenoxylate 0.025-2.5 mg Tab PO SCH ×3 (10:18→17:59)
--- NOTE | 2018-07-25 15:40 | CP.PCM.PN ---
Subjective - Date & Time of Evaluation Date of Evaluation: 07/25/18 Time of Evaluation: 09:45 - Subjective Subjective: resting comfortably, NAD Objective - Vital Signs/Intake and Output Vital Signs (last 24 hours): Temp Pulse Resp BP Pulse Ox 98 F 98 H 18 99/57 L 99 07/25/18 10:00 07/25/18 10:00 07/25/18 10:00 07/25/18 10:00 07/24/18 16:00 - Medications Medications: Current Medications Cholestyramine Resin (Questran) 4 gm PO DAILY [facility]; Protocol Last Admin: 07/25/18 10:12 Dose: 4 gm Dabigatran (Pradaxa) 75 mg PO BID [facility]AN; Protocol Last Admin: 07/25/18 10:12 Dose: 75 mg Diphenoxylate HCl/Atropine (Lomotil 0.025-2.5 Mg Tablet) 1 tab PO TID ETHAN Last Admin: 07/25/18 14:12 Dose: 1 tab Mupirocin (Bactroban Ointment) 0 gm TOP BID [facility]AN; Protocol Last Admin: 07/25/18 10:11 Dose: 1 applic Nystatin (Nystop Topical Powder) 1 gm TOP BID [facility]AN; Protocol Last Admin: 07/25/18 10:10 Dose: 1 dose Pantoprazole Sodium (Protonix Ec Tab) 40 mg PO 0600,1600 [facility]AN; Protocol Last Admin: 07/25/18 06:02 Dose: 40 mg - Labs Labs: 07/24/18 08:00 07/24/18 08:00 - Respiratory Exam Respiratory Exam: Clear to Ausculation Bilateral, NORMAL BREATHING PATTERN - Cardiovascular Exam Cardiovascular Exam: REGULAR RHYTHM - GI/Abdominal Exam GI & Abdominal Exam: Soft, Normal Bowel Sounds - Neurological Exam Neurological Exam: Awake - Skin Skin Exam: Dry, Warm Assessment and Plan (1) Cellulitis Status: Acute - Assessment and Plan (Free Text) Plan: continue present rx, Dr. Rey to resume care of patient in am
--- NOTE | 2018-07-25 18:19 | PN ---
DATE: 07/25/2018 SUBJECTIVE: The patient is in bed, in no acute distress, nontoxic. PHYSICAL EXAMINATION: VITAL SIGNS: Temperature is 98, blood pressure is 100/50, and respiratory rate 18. HEENT: Unremarkable. NECK: Supple. LUNGS: Decreased breath sounds. HEART: Normal S1, S2. ABDOMEN: Soft. LABORATORY EXAMINATION: Reveals a white count of 6.4, hemoglobin of 9, and platelets of 409. Chemistries reveal a BUN of 15, creatinine of 0.7. Microbiology is reviewed. ASSESSMENT AND PLAN: A 48-year-old male seen earlier today in transitional care with right leg and testes cellulitis and partial bowel obstruction on CAT scan with gastroesophageal reflux disease, anemia, anxiety, and recent pneumonia. Completed 7 days of vancomycin and Zosyn, yesterday was the last day of antibiotics, currently now off antibiotics. The patient is at risk for developing nosocomial infections. The patient appears to be doing well. Antwan Del Rosario MD
--- NOTE | 2018-07-26 00:47 | CP.PCM.CON ---
History of Present Illness - History of Present Illness History of Present Illness: Pt. was admitted with right leg cellulitis, colonic obstruction. He was discharged home on anticoagulation with pradaxa due to non compliance with coumadin. He has history of DVT right femoral vein. denies pain. apatite improved. Review of Systems - Constitutional Constitutional: As Per HPI - EENT Eyes: absent: As Per HPI, Blind Spots, Blurred Vision, Change in Vision, Decreased Night Vision, Diplopia, Discharge, Dry Eye, Exophthalmos, Floaters, Irritation, Itchy Eyes, Loss of Peripheral Vision, Pain, Photophobia, Requires Corrective Lenses, Sees Flashes, Spots in Vision, Tunnel Vision, Other Visual Disturbances, Loss of Vision, Other Nose/Mouth/Throat: absent: As Per HPI, Epistaxis, Nasal Congestion, Nasal Discharge, Nasal Obstruction, Nasal Trauma, Nose Pain, Post Nasal Drip, Sinus Pain, Sinus Pressure, Bleeding Gums, Change in Voice, Dental Pain, Dry Mouth, Dysphagia, Halitosis, Hoarsness, Lip Swelling, Mouth Lesions, Mouth Pain, Odynophagia, Sore Throat, Throat Swelling, Tongue Swelling, Facial Pain, Neck Pain, Neck Mass, Other - Cardiovascular Cardiovascular: absent: As Per HPI, Acrocyanosis, Chest Pain, Chest Pain at Rest, Chest Pain with Activity, Claudication, Diaphoresis, Dyspnea, Dyspnea on Exertion, Edema, Irregular Heart Rhythm, Pain Radiating to Arm/Neck/Jaw, Leg Edema, Leg Ulcers, Lightheadedness, Orthopnea, Palpitations, Paroxysmal Nocturnal Dyspnea, Pedal Edema, Radiating Pain, Rapid Heart Rate, Slow Heart Rate, Syncope, Other - Respiratory Respiratory: absent: As Per HPI, Cough, Dyspnea, Hemoptysis, Dyspnea on Exertion, Wheezing, Snoring, Stridor, Pain on Inspiration, Chest Congestion, Excessive Mucous Production, Change in Mucous Color, Pain with Coughing, Other - Gastrointestinal Gastrointestinal: absent: As Per HPI, Abdominal Pain, Belching, Bloating, Change in Bowel Habits, Change in Stool Character, Coffee Ground Emesis, Constipation, Cramping, Diarrhea, Dyspepsia, Dysphagia, Early Satiety, Excessive Flatus, Fecal Incontinence, Heartburn, Hematemesis, Hematochezia, Loose Stools, Melena, Nausea, Odynophagia, Temesmus, Vomiting, Other - Genitourinary Genitourinary: As Per HPI - Musculoskeletal Musculoskeletal: absent: As Per HPI, Abnormal Gait, Arthralgias, Atrophy, Back Pain, Deformity, Joint Swelling, Limited Range of Motion, Loss of Height, Muscle Cramps, Muscle Weakness, Myalgias, Neck Pain, Numbness, Radiating Pain into Limb, Stiffness, Tingling, Other - Integumentary Integumentary: absent: As Per HPI, Acne, Alopecia, Bleeding Lesions, Change in Hair, Change in Nails, Change in Pigmentation, Changing Lesions, Dry Skin, Erythema, Furuncle, Hirsutism, Lesions, New Lesions, Non-Healing Lesions, Ph otosensitivity, Pruritus, Rash, Skin Pain, Skin Ulcer, Sores, Striae, Swelling, Unusual Bruising, Wounds, Jaundice, Other - Psychiatric Psychiatric: absent: As Per HPI, Abnormal Sleep Pattern, Anhedonia, Anxiety, Auditory Hallucinations, Behavioral Changes, Change in Appetite, Change in Libido, Confusion, Depression, Difficulty Concentrating, Hallucinations, Homicidal Ideation, Hopelessness, Irritability, Memory Loss, Mood Swings, Panic Attacks, Paranoia, Suicidal Ideation, Visual Hallucinations, Tactile Hallucinations, Other - Endocrine Endocrine: absent: As Per HPI, Change in Body Appearance, Change in Libido, Cold Intolorance, Deepening of Voice, Excessive Sweating, Fatigue, Flushing, Heat Intolorance, Increase in Ring/Shoe/Hat Size, Palpitations, Polydipsia, Polyphagia, Polyuria, Other - Hematologic/Lymphatic Hematologic: As Per HPI Past Patient History - Infectious Disease Hx of Infectious Diseases: None - Tetanus Immunizations Tetanus Immunization: Unknown - Past Social History Smoking Status: Never Smoked - CARDIAC Hx Cardiac Disorders: No - PULMONARY Hx Respiratory Disorders: Yes Other/Comment: aspiration pna - NEUROLOGICAL Other/Comment: mental retardation - HEENT Hx HEENT Problems: No - RENAL Hx Chronic Kidney Disease: No - ENDOCRINE/METABOLIC Hx Endocrine Disorders: No - HEMATOLOGICAL/ONCOLOGICAL Hx Blood Disorders: Yes Hx Anemia: Yes - INTEGUMENTARY Hx Dermatological Problems: Yes Other/Comment: multiple abdominal scarring - MUSCULOSKELETAL/RHEUMATOLOGICAL Hx Falls: Yes - GASTROINTESTINAL Hx Gastrointestinal Disorders: Yes Hx Colostomy: Yes (reversal) Hx Ileostomy: Yes Other/Comment: colitis - GENITOURINARY/GYNECOLOGICAL Hx Genitourinary Disorders: No - PSYCHIATRIC Other/Comment: mental retardation - SURGICAL HISTORY Other/Comment: small bowel resection - ANESTHESIA Hx Anesthesia Reactions: No Hx Malignant Hyperthermia: No Meds Allergies/Adverse Reactions: Allergies Allergy/AdvReac Type Severity Reaction Status Date / Time No Known Allergies Allergy Verified 07/22/18 16:43 - Medications Medications: Current Medications Cholestyramine Resin (Questran) 4 gm PO DAILY [facility]; Protocol Last Admin: 07/25/18 10:12 Dose: 4 gm Dabigatran (Pradaxa) 75 mg PO BID [facility]; Protocol Last Admin: 07/25/18 18:00 Dose: 75 mg Diphenoxylate HCl/Atropine (Lomotil 0.025-2.5 Mg Tablet) 1 tab PO TID [facility] Last Admin: 07/25/18 17:59 Dose: 1 tab Mupirocin (Bactroban Ointment) 0 gm TOP BID [facility]; Protocol Last Admin: 07/25/18 18:00 Dose: 1 applic Nystatin (Nystop Topical Powder) 1 gm TOP BID [facility]; Protocol Last Admin: 07/25/18 18:00 Dose: 1 dose Pantoprazole Sodium (Protonix Ec Tab) 40 mg PO 0600,1600 [facility]; Protocol Last Admin: 07/25/18 16:51 Dose: 40 mg Physical Exam - Constitutional Appears: Chronically Ill - Head Exam Head Exam: ATRAUMATIC, NORMAL INSPECTION, NORMOCEPHALIC - Eye Exam Eye Exam: Normal appearance - ENT Exam ENT Exam: Mucous Membranes Moist - Neck Exam Neck exam: Positive for: Normal Inspection - Respiratory Exam Respiratory Exam: Clear to Auscultation Bilateral, NORMAL BREATHING PATTERN - GI/Abdominal Exam GI & Abdominal Exam: Normal Bowel Sounds, Soft - Extremities Exam Extremities exam: Positive for: pedal edema - Back Exam Back exam: NORMAL INSPECTION - Neurological Exam Neurological exam: Alert, CN II-XII Intact - Skin Skin Exam: Pallor Results - Vital Signs Recent Vital Signs: Last Vital Signs Temp 98.7 F 07/25/18 16:00 Pulse 84 07/25/18 16:00 Resp 18 07/25/18 16:00 BP 98/58 L 07/25/18 16:00 Pulse Ox 97 07/25/18 16:00 - Labs Result Diagrams: 07/24/18 08:00 07/24/18 08:00 Assessment & Plan - Assessment and Plan (Free Text) Assessment: 1. 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 start Pradaxa 75 mg PO BID, as no plan for colonic dilatation. 2. 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 3. Iron deficiency anemia : chronic related to occult GI bleed. h/o multiple GI surgeries. Hb/Hct stable. 4. cachexia , failure to thrive. thank you Dr. Rey for allowing us to participate in his care. - Date & Time Date: 07/23/18 Time: 10:00
[2018-07-26] MEDS: Pantoprazole 40 mg EC Tab PO SCH ×2 (05:11→17:00)
[2018-07-26] MEDS: Atropine-Diphenoxylate 0.025-2.5 mg Tab PO SCH ×3 (06:57→14:07)
--- NOTE | 2018-07-26 08:48 | CON ---
DATE: 07/23/2018 REASON FOR THE CONSULTATION: Cardiac evaluation rule out congestive heart failure, swelling of the leg, swelling of the scrotum. BRIEF CLINICAL HISTORY: A 48-year-old male brought here because of leg and scrotal swelling. He initially admitted to the floor with history of aspiration pneumonia and GI workup, history of paralytic ileus, and distended abdomen. The patient was in the floor, now transferred to the TCU for the continuity of the care. PAST MEDICAL HISTORY: Significant for history of pneumonia, aspiration pneumonia, mentally challenged, GI bleeding, abdominal surgery in the past. History of hyponatremia and hypotension. PAST SURGICAL HISTORY: Significant for abdominal surgery; gastric obstruction, history of multiple gastric obstruction; paralytic ileus, ileostomy, ileostomy reversal, small bowel resection, inguinal hernia repair. SOCIAL HISTORY: Denies any history of alcohol abuse. CURRENT MEDICATION: The patient was taking vitamin B complex, nystatin, Pradaxa, cholestyramine, calcium, amoxicillin. The patient admitted with scrotal swelling but no evidence of CHF. PREVIOUS CARDIAC WORKUP: As follows, the patient had echocardiography on 07/18/2016, that showed ejection fraction of 60%, mild MR, mild TR, mild pulmonary insufficiency. PHYSICAL EXAMINATION: GENERAL: Examination as follows, height of the patient is 5 feet 7. Weight of the patient is 101 pounds, body mass index is 15.9 kg/m2. VITAL SIGNS: Rest of the examination as follows, vital signs; temperature afebrile, heart rate 93, blood pressure 104/71. HEENT: PERRLA intact. NECK: Supple. No carotid bruit or thyromegaly. CHEST: Clear to auscultation. HEART: S1 and S2 regular. ABDOMEN: Soft. EXTREMITIES: Clubbing and cyanosis negative. LABORATORY DATA: WBC 4.5, hemoglobin 9, hematocrit 28.1, platelet count 361. Chemistry shows sodium 134, potassium 3, chloride 109, carbon dioxide 23, anion gap of 5, BUN 13, creatinine 0.7. IMPRESSION: A 48-year-old male with past medical history multiple for gastric surgery due to outlet obstruction, admitted initially to the floor with distension of the abdomen and swelling of the leg and extremity. The patient is not clinically heart failure, being followed by Dr. Alexander, and testicular swelling. No evidence of DVT. History of chronic obstructions, history of gastroesophageal reflux disease, history of chronic anemia, history of blood transfusions, history of small bowel obstruction in the past, history of recurrent pneumonia, mentally challenged. RECOMMENDATIONS: Monitor electrolytes, with supplement electrolytes. Continue current treatment. We will follow with you. Cardiac status is stable. We will follow with you. Thank you, Dr. Rey, for providing us opportunity in taking care of the patient. Today, potassium is 3, but will receive the supplement. Eber Berry MD
[2018-07-26] MEDS: Mupirocin 2% Ointment 15 GM TUBE TOP SCH ×2 (10:41→17:00)
[2018-07-26] MEDS: Cholestyramine 4 gm/Pkt UD PO SCH (10:42)
[2018-07-26] MEDS: Nystatin 100,000 Units/gm Topical Pow(15 gm) TOP SCH ×2 (10:43→17:00)
--- NOTE | 2018-07-26 14:27 | PN ---
DATE: 07/26/2018 REASON FOR CONSULTATION AND FOLLOWUP: Cardiac evaluation, rule out congestive heart failure, swelling of the leg and scrotum. SUBJECTIVE: The patient denies any chest pain, shortness of breath, or any palpitation, lying flat on the bed with face covered . OBJECTIVE: GENERAL: Not in any apparent distress, lying flat on the bed. VITAL SIGNS: Temperature afebrile, heart rate 84, and blood pressure 98/58. HEENT: PERRLA, intact. NECK: Supple. No carotid bruit. No thyromegaly. CHEST: Clear to auscultation. HEART: S1 and S2, regular. ABDOMEN: Soft. EXTREMITIES: Clubbing and cyanosis negative. LABORATORY DATA: Blood workup as follows; WBC 6.5, hemoglobin 9.8, hematocrit 31.6, and platelet count 409. Chemistry shows sodium 134, potassium 3.7, chloride 109, carbon dioxide 22, anion gap of , BUN 15, creatinine 0.7. IMPRESSION: A 48-year-old male with mentally challenged, past history significant for multiple gastric surgery, scrotal swelling, being followed by Dr. Alexander. No evidence of deep vein thrombosis. History of chronic obstruction of gastrointestinal tract, history of anemia, history of blood transfusion, small bowel obstruction in the past, history of recurrent pneumonia. RECOMMENDATION: CVS status is stable. Continue current treatment. Continue rehab for DVT. The patient has history of DVT. The patient is on Pradaxa maintenance dose. We will follow with you. Repeat the blood workup in the morning. Thank you, Dr. Rey, for providing us the opportunity in taking care of the patient, Sean Dee. Eber Berry MD
--- NOTE | 2018-07-26 16:38 | CP.PCM.PN ---
<Roberto Mars - Last Filed: 07/26/18 16:36> Subjective - Date & Time of Evaluation Date of Evaluation: 07/26/18 Time of Evaluation: 16:36 - Subjective Subjective: Noe Mars IM Resident - GI Progress Note Patient seen and evaluated this AM. No acute events overnight. No complaints offered. Tolerating diet. Continued soft stools Objective - Vital Signs/Intake and Output Vital Signs (last 24 hours): Temp Pulse Resp BP Pulse Ox 98.2 F 93 H 14 120/84 100 07/26/18 10:00 07/26/18 10:00 07/26/18 10:00 07/26/18 10:00 07/26/18 10:00 Intake and Output: 07/26/18 07/26/18 06:59 18:59 Intake Total 420 Balance 420 - Medications Medications: Current Medications Cholestyramine Resin (Questran) 4 gm PO DAILY [facility]; Protocol Last Admin: 07/26/18 10:42 Dose: 4 gm Dabigatran (Pradaxa) 75 mg PO BID [facility]; Protocol Last Admin: 07/26/18 10:42 Dose: 75 mg Diphenoxylate HCl/Atropine (Lomotil 0.025-2.5 Mg Tablet) 1 tab PO TID [facility] Last Admin: 07/26/18 10:44 Dose: Not Given Mupirocin (Bactroban Ointment) 0 gm TOP BID [facility]; Protocol Last Admin: 07/26/18 10:41 Dose: 2 applic Nystatin (Nystop Topical Powder) 1 gm TOP BID [facility]; Protocol Last Admin: 07/26/18 10:43 Dose: 1 dose Pantoprazole Sodium (Protonix Ec Tab) 40 mg PO 0600,1600 [facility]; Protocol Last Admin: 07/26/18 05:11 Dose: 40 mg - Labs Labs: 07/24/18 08:00 07/24/18 08:00 - Constitutional Appears: No Acute Distress - Head Exam Head Exam: ATRAUMATIC, NORMOCEPHALIC - Eye Exam Eye Exam: EOMI, PERRL - ENT Exam ENT Exam: Mucous Membranes Moist - Neck Exam Neck Exam: Full ROM - Respiratory Exam Respiratory Exam: Clear to Ausculation Bilateral, NORMAL BREATHING PATTERN - Cardiovascular Exam Cardiovascular Exam: REGULAR RHYTHM, +S1, +S2 - GI/Abdominal Exam GI & Abdominal Exam: Soft, Normal Bowel Sounds. absent: Tenderness - Extremities Exam Extremities Exam: Normal Inspection - Neurological Exam Neurological Exam: Alert, Awake, Normal Gait, Oriented x3 Neuro motor strength exam: Left Upper Extremity: 5, Right Upper Extremity: 5, Left Lower Extremity: 5, Right Lower Extremity: 5 - Psychiatric Exam Psychiatric exam: Flat Affect - Skin Skin Exam: Dry, Warm Assessment and Plan - Assessment and Plan (Free Text) Assessment: 48 year old male with past medical history of mental disability, anemia, colitis, colostomy, history of GI bleeding, ileostomy, hx of DVT and PE treated with Pradaxa with frequent bowel movements and history of GI bleeds. Patient continues to have passage of bowel movements without bleeds. Patient transferred to TCU for deconditioning and further rehabilitation Plan: Diarrhea-resolved, C. diff ag adn toxin negative Hx of GI bleed Hx of GERD Hx of small bowel resection with ileostomy Hx of colostomy Hx of DVT and PE without anticoagulation - Continue PPI and questran - Continue IV antibiotics as per ID - Abd/Pelvis CT: Stomach is distended with air fluid level, large bowel dilatation, colon dilated up to 5.6 cm just proximal to rectosigmoid area - Cardiology consulted and following - H/H stable at this time, no reports of bloody bowel movement - Recommend low residue diet, avoid constipation goal for soft stool - monitor H/H, transfuse as needed - Further recommendations as per Dr. Davies <Cristiane Davies V - Last Filed: 07/27/18 01:08> Objective - Vital Signs/Intake and Output Vital Signs (last 24 hours): Temp Pulse Resp BP Pulse Ox 97.9 F 82 16 108/72 100 07/26/18 16:00 07/26/18 16:00 07/26/18 16:00 07/26/18 16:00 07/26/18 16:00 Intake and Output: 07/26/18 07/27/18 18:59 06:59 Intake Total 420 Balance 420 - Medications Medications: Current Medications Cholestyramine Resin (Questran) 4 gm PO DAILY [facility]; Protocol Last Admin: 07/26/18 10:42 Dose: 4 gm Dabigatran (Pradaxa) 75 mg PO BID [facility]; Protocol Last Admin: 07/26/18 17:01 Dose: 75 mg Diphenoxylate HCl/Atropine (Lomotil 0.025-2.5 Mg Tablet) 1 tab PO TID [facility] Last Admin: 07/26/18 14:07 Dose: 1 tab Mupirocin (Bactroban Ointment) 0 gm TOP BID [facility]; Protocol Last Admin: 07/26/18 17:00 Dose: 1 applic Nystatin (Nystop Topical Powder) 1 gm TOP BID [facility]; Protocol Last Admin: 07/26/18 17:00 Dose: 1 dose Pantoprazole Sodium (Protonix Ec Tab) 40 mg PO 0600,1600 [facility]; Protocol Last Admin: 07/26/18 17:00 Dose: 40 mg - Labs Labs: 07/24/18 08:00 07/24/18 08:00 Attending/Attestation - Attestation I have personally seen and examined this patient.: Yes I have fully participated in the care of the patient.: Yes I have reviewed all pertinent clinical information, including history, physical exam and plan: Yes Notes (Text): This is an addendum to GI followup report dictated by the [employer]. The patient was seen and evaluated earlier. Medical records, lab studies, imagings were reviewed. Last 24 hours events reviewed. Agreed with the above treatment plan as outlined in [employer] 's notes with the addition of the following Tolerating diet Hb stable on Pradaxa Patient does have colonic anastomosis stricture with marginal ulceration On Questran and Lomotil Will titrate the dose of anti-diarrheal to keep the bowl movements soft to avoid partial obstruction because of the stricture 07/27/18 01:04
--- NOTE | 2018-07-26 23:19 | PN ---
DATE: 07/26/2018 SUBJECTIVE: The patient was seen in the Transitional Care. PHYSICAL EXAMINATION VITAL SIGNS: Temperature is 98, blood pressure is 120/70, respiratory rate of 18. HEENT: Examination of HEENT is unremarkable. NECK: Supple. LUNGS: Have decreased breath sounds. HEART: Normal S1, S2. ABDOMEN: Soft, nontender. LABORATORY DATA: Laboratory examination is noted. ASSESSMENT AND PLAN: A 48-year-old male was seen earlier with right leg and testicular cellulitis, bowel obstruction, gastroesophageal reflux disease and anxiety. Completed antibiotic therapy. Currently, off antibiotics. The patient did have diarrhea today, loose bowel movements, off of antibiotics and the patient did have stool for Clostridium difficile which is reported to be negative on 07/18/2018. Antwan Del Rosario MD
--- NOTE | 2018-07-27 00:15 | CP.PCM.PN ---
Subjective - Date & Time of Evaluation Date of Evaluation: 07/26/18 Time of Evaluation: 18:00 - Subjective Subjective: Comfortable in bed. Denies any complaints. Hb/hct stable. Ambulating without difficulty. Apatite improved. Objective - Vital Signs/Intake and Output Vital Signs (last 24 hours): Temp Pulse Resp BP Pulse Ox 97.9 F 82 16 108/72 100 07/26/18 16:00 07/26/18 16:00 07/26/18 16:00 07/26/18 16:00 07/26/18 16:00 Intake and Output: 07/26/18 07/27/18 18:59 06:59 Intake Total 420 Balance 420 - Medications Medications: Current Medications Cholestyramine Resin (Questran) 4 gm PO DAILY [facility]; Protocol Last Admin: 07/26/18 10:42 Dose: 4 gm Dabigatran (Pradaxa) 75 mg PO BID [facility]; Protocol Last Admin: 07/26/18 17:01 Dose: 75 mg Diphenoxylate HCl/Atropine (Lomotil 0.025-2.5 Mg Tablet) 1 tab PO TID [facility] Last Admin: 07/26/18 14:07 Dose: 1 tab Mupirocin (Bactroban Ointment) 0 gm TOP BID [facility]; Protocol Last Admin: 07/26/18 17:00 Dose: 1 applic Nystatin (Nystop Topical Powder) 1 gm TOP BID [facility]; Protocol Last Admin: 07/26/18 17:00 Dose: 1 dose Pantoprazole Sodium (Protonix Ec Tab) 40 mg PO 0600,1600 [facility]; Protocol Last Admin: 07/26/18 17:00 Dose: 40 mg - Labs Labs: 07/24/18 08:00 07/24/18 08:00 - Constitutional Appears: Cachectic, Chronically Ill - Head Exam Head Exam: ATRAUMATIC, NORMAL INSPECTION, NORMOCEPHALIC - Eye Exam Eye Exam: Normal appearance - ENT Exam ENT Exam: Mucous Membranes Moist - Neck Exam Neck Exam: Normal Inspection - Respiratory Exam Respiratory Exam: Clear to Ausculation Bilateral, NORMAL BREATHING PATTERN - Cardiovascular Exam Cardiovascular Exam: REGULAR RHYTHM, +S1, +S2 - GI/Abdominal Exam GI & Abdominal Exam: Soft, Normal Bowel Sounds - Extremities Exam Extremities Exam: Normal Inspection - Back Exam Back Exam: NORMAL INSPECTION - Neurological Exam Neurological Exam: Alert, Awake, Normal Gait, Oriented x3 - Psychiatric Exam Psychiatric exam: Flat Affect - Skin Skin Exam: Pallor Assessment and Plan - Assessment and Plan (Free Text) Assessment: 1. DVT in right femoral chronic, h/o PE : On Pradaxa 75 mg PO BID, continue same. 2. 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 3. Iron deficiency anemia : chronic related to occult GI bleed. h/o multiple GI surgeries. Hb/Hct stable at 9.8. s/p IV iron, PRBC 4. cachexia chronic. 5. Gait improved. GC improved. thank you Dr. Rey for allowing us to participate in his care.
[2018-07-27] MEDS: Pantoprazole 40 mg EC Tab PO SCH ×2 (05:26→18:10)
[2018-07-27 07:14] LABS: BASO # 0.03 K/mm3 (0.0-2.0); BASO % 0.5 % (0.0-3.0); EOS # 0.2 (0.0-0.7); EOS % 2.5 % (1.5-5.0); GRAN # 4.03 (1.4-6.5); GRAN % 66.9 % (50.0-68.0); HEMOGLOBIN 9.2 g/dL (14.0-18.0); LYMPH # 1.1 (1.2-3.4); LYMPH % 18.6 % (22.0-35.0); MEAN CELL VOLUME 83.8 fl (80.0-105.0); MEAN CORPUSCULAR HEMOGLOBIN 26.7 pg (25.0-35.0); MEAN CORPUSCULAR HGB CONC 31.8 g/dl (31.0-37.0); MEAN PLATELET VOLUME 9.1 fl (7.0-11.0); MONO # 0.7 (0.1-0.6); MONO % 11.5 % (1.0-6.0); RBC 3.45 10^6/uL (3.5-6.1); RED CELL DISTRIBUTION WIDTH 19.3 % (11.5-14.5)
[2018-07-27 07:35] LABS: BLOOD UREA NITROGEN 14 mg/dL (7-21); CALCIUM 7.7 mg/dL (8.4-10.5); GFR NON-AFRICAN AMERICAN > 60
[2018-07-27] MEDS: Mupirocin 2% Ointment 15 GM TUBE TOP SCH ×2 (09:13→18:10)
[2018-07-27] MEDS: Nystatin 100,000 Units/gm Topical Pow(15 gm) TOP SCH ×2 (09:13→18:11)
[2018-07-27] MEDS: Cholestyramine 4 gm/Pkt UD PO SCH (09:14)
[2018-07-27] MEDS: Atropine-Diphenoxylate 0.025-2.5 mg Tab PO SCH ×2 (09:18→18:09)
--- NOTE | 2018-07-27 13:44 | PN ---
DATE: 07/26/2018 SUBJECTIVE: The patient is a 48 years old male. Patient was seen and examined at the bedside late evening on 07/26/2018. Looking comfortable. No fever. No chills. Tolerating food very well. Still having soft stool, but not phill diarrhea. Still has rash in the rectal area, but improving. No fever. No chills. No hematuria. No hematochezia. No headache. No dizziness. PHYSICAL EXAMINATION: VITAL SIGNS: Temperature 98.2, pulse 93, respiratory rate 14, blood pressure 120/84, pulse oximetry 100%. HEENT: Head: Normocephalic, atraumatic. Eyes: PERRLA. Extraocular muscles intact. Conjunctivae clear. Nose patent. Mucous membrane moist. NECK: Supple. No carotid bruit. No JVD or thyromegaly. CHEST: Bilaterally symmetrical. HEART: S1 and S2 positive. LUNGS: Clear to auscultation. ABDOMEN: Soft. Bowel sounds positive. No organomegaly. EXTREMITIES: No edema. No cyanosis. NEUROLOGIC: Patient is awake and alert. Moving all four extremities. No focal deficit. MEDICATIONS: Questran, Pradaxa, Lomotil, Bactroban cream, nystatin powder, and Protonix. LABORATORY DATA: White blood cell 6.4, hemoglobin 9.8, hematocrit 31.6, and platelets 409. Sodium 134, potassium 3.7. BUN 15, creatinine 0.7. Glucose 109. ASSESSMENT AND PLAN: Mr. Sean Dee is a 48 years old male with anemia, hypochloremia, has past medical history of mentally challenged, colitis, colostomy, history of gastrointestinal bleeding, ileostomy, history of deep venous thrombosis and pulmonary embolism, treated with Coumadin and now Pradaxa because of noncompliance. Has frequent bowel movements and history of multiple time abdominal surgeries for small bowel obstruction. Patient continuously has passage of bowel movement without bleeding. Now, patient is in transitional care unit, getting physical therapy. Clostridium difficile toxin colitis is negative. History of gastroesophageal reflux disease, dyspepsia. Continue proton pump inhibitor and Questran. GI is on the case. They recommended low residual diet to avoid constipation, goal for soft stool. Monitor hemoglobin and hematocrit. 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 Patient has colonic anastomotic stricture with marginal ulceration, on Questran and Lomotil. GI and DVT prophylaxes. Repeat labs. We will follow up. Meme Rey MD MTDVíctor
--- NOTE | 2018-07-27 16:48 | PN ---
DATE: 07/27/2018 REASON FOR CONSULTATION: Cardiac evaluation, continuity of care at transitional care unit. SUBJECTIVE: The patient denies any chest pain, shortness of breath, or any palpitation. OBJECTIVE: GENERAL: Not in apparent distress, lying flat on the bed. VITAL SIGNS: Temperature afebrile, heart rate 82, and blood pressure 108/72. HEENT: PERRLA. Extraocular muscles intact. NECK: Supple. No carotid bruit. No thyromegaly. CHEST: Clear to auscultation. HEART: S1 and S2, regular. ABDOMEN: Soft. EXTREMITIES: Clubbing and cyanosis negative. LABORATORY DATA: Blood workup as follows; WBC 6, hemoglobin 9.8, hematocrit 28.9, and platelet count 367. Chemistry shows sodium 130, potassium 3.7, chloride 105, carbon dioxide of 24, anion gap of 6. BUN 14, creatinine 0.7. IMPRESSION: A 48-year-old male with past medical history of mentally challenged, multiple gastric surgeries, admitted with scrotal swelling, being followed by Dr. Alexander. No evidence of deep venous thrombosis. History of chronic obstruction of gastrointestinal tract, history of anemia, history of blood transfusion, history of bowel obstruction in the past, history of pneumonia. CVS status is stable. Continue rehabilitation. Continue deep venous thrombosis prophylaxis. No evidence of congestive heart failure. Continue Pradaxa because of the history of deep venous thrombosis in the past. We will follow with you. No further cardiac workup is planned. Thank you, Dr. Rey, for providing us the opportunity in taking care of the patient, Sean Dee. Eber Berry MD
--- NOTE | 2018-07-27 17:38 | PN ---
DATE: 07/27/2018 FOLLOWUP NOTE SUBJECTIVE: He is comfortable in bed, in no acute distress. Tolerating oral feed very well. Ambulating without any discomfort. No hematuria. Hemoglobin and hematocrit have been stable. Denies any complaints. PHYSICAL EXAMINATION: GENERAL: Comfortable in bed, in no acute distress. VITAL SIGNS: Temperature 98.6, heart rate 80 per minute, respiratory rate 14 per minute, blood pressure 120/60, pulse ox is 98% on room air. HEENT: Pallor positive. NECK: No lymphadenopathy. CHEST: Air entry present and equal, bilateral. No added sound. CARDIOVASCULAR: S1, S2 normal. No murmur. No gallop. ABDOMEN: Soft, nontender. No hepatosplenomegaly. EXTREMITIES: No edema. 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 No focal sensorimotor deficits. MEDICATIONS: Pradaxa, Lomotil, Bactroban, nystatin local application, Protonix, Questran. LABORATORY DATA: White count 6.4, hemoglobin 9.8, hematocrit 31.6, platelet 409. BUN 15, creatinine 0.7. ASSESSMENT AND PLAN: 1. Anemia, multifactorial. 2. History of gastrointestinal bleeding. 3. Hypercoagulable state, history of deep venous thrombosis, history of pulmonary embolism. Currently, on Pradaxa 75 mg p.o. b.i.d. He was noncompliant with Coumadin. He is at increased risk of bleeding. Hemoglobin and hematocrit have been stable since he was started on Pradaxa. We will continue to monitor hemoglobin and hematocrit closely. He has received several doses of IV iron as outpatient. Compliance is an issue because of mental retardation and social issues. He has colonic stricture. Family refused colonic dilatation. Came with colon obstruction, resolved now with conservative management. Thank you, Dr. Rey for allowing us to participate in Mr. Cunningham's care. Candace Murillo MD
--- NOTE | 2018-07-28 03:31 | PN ---
DATE: 07/27/2018 SUBJECTIVE: The patient is a 48-year-old male. Patient was seen in activity room, looking comfortable. According to nursing staff, early in the morning, he did 3 times bowel movement. After that, he is feeling better, tolerating oral food very well, ambulating without any discomfort. Getting physical therapy. No hematuria or hematochezia. Hemoglobin is stable. No headache or dizziness. No shortness of breath. PHYSICAL EXAMINATION: VITAL SIGNS: Temperature 98.6, heart rate 80, respiratory rate 18 and blood pressure 120/60, pulse oximetry 98% on room air. HEENT: Head: Normocephalic, atraumatic. Eyes: PERRLA. Extraocular muscles intact. Conjunctivae clear. Nose patent. Mucous membrane moist. NECK: Supple. No carotid bruit. No JVD or thyromegaly. CHEST: Bilaterally symmetrical. HEART: S1 and S2 positive. LUNGS: Clear to auscultation. ABDOMEN: Soft. Bowel sounds positive. No organomegaly. EXTREMITIES: No edema. No cyanosis. NEUROLOGIC: Patient is awake and alert. Moving all four extremities. No focal deficit. MEDICATIONS: Pradaxa, Lomotil, Bactroban, nystatin local application, Protonix, Questran. LABORATORY DATA: White blood cell 6.4, hemoglobin 9.8, hematocrit 31.6, and platelets 409. BUN 15, creatinine 0.7. ASSESSMENT AND PLAN: Mr. Sean Dee is a 48-year-old male with multiple medical problems, history of pulmonary embolus and deep venous thrombosis, was on Coumadin, Because of noncompliance, we had to stop Coumadin, started on Pradaxa. History of anemia, multifactorial. History of gastrointestinal bleeding, hypercoagulable state, history of mental retardation. We are monitoring the patient's hemoglobin. He received many doses of iron as outpatient. History of rash on the scrotum and near the rectum due to diarrhea. The patient has colonic stricture, and that is why GI is afraid to give too much anti-diarrheal medication. Family refused colonic dilatation as per GI. Now, we will continue present treatment. Repeat labs. We will follow up. Meme Rey MD
[2018-07-28] MEDS: Pantoprazole 40 mg EC Tab PO SCH ×2 (06:07→17:45)
[2018-07-28 08:14] LABS: HEMOGLOBIN 10.2 g/dL (14.0-18.0); MEAN CELL VOLUME 84.4 fl (80.0-105.0); MEAN CORPUSCULAR HEMOGLOBIN 26.5 pg (25.0-35.0); MEAN CORPUSCULAR HGB CONC 31.4 g/dl (31.0-37.0); MEAN PLATELET VOLUME 9.4 fl (7.0-11.0); RBC 3.85 10^6/uL (3.5-6.1); RED CELL DISTRIBUTION WIDTH 19.3 % (11.5-14.5); WHITE BLOOD COUNT 7.5 10^3/ul (4.5-11.0)
[2018-07-28 08:15] LABS: BLOOD UREA NITROGEN 13 mg/dL (7-21); GFR NON-AFRICAN AMERICAN > 60
--- NOTE | 2018-07-28 08:15 | PN ---
DATE: 07/27/2018 SUBJECTIVE: The patient seen earlier today in 327. No fevers. No chills. No nausea. No vomiting. PHYSICAL EXAMINATION VITAL SIGNS: Temperature is 98, blood pressure is 107/70, respiratory rate of 18, heart rate of 84. HEENT: Unremarkable. NECK: Supple. LUNGS: Have decreased breath sounds. HEART: Normal S1, S2. ABDOMEN: Soft. LABORATORY DATA: Laboratory examination reveals a white count of 6, hemoglobin of 9, platelets of 367. BUN of 14, creatinine of 0.7. Microbiology is noted. ASSESSMENT AND PLAN: He is a 48-year-old male, seen earlier today and testicular cellulitis, bowel obstruction, gastroesophageal reflux disease, and has completed the antibiotic therapy. Currently, off of antibiotics, afebrile. The patient is at risk for developing nosocomial infections and review of orders confirms the patient to be on p.o. Flagyl. The patient's Clostridium difficile has been negative. Antwan Del Rosario MD
[2018-07-28] MEDS: Nystatin 100,000 Units/gm Topical Pow(15 gm) TOP SCH ×2 (10:07→17:44)
[2018-07-28] MEDS: Mupirocin 2% Ointment 15 GM TUBE TOP SCH ×2 (10:09→17:43)
[2018-07-28] MEDS: Cholestyramine 4 gm/Pkt UD PO SCH (10:09)
[2018-07-28] MEDS: Atropine-Diphenoxylate 0.025-2.5 mg Tab PO SCH ×2 (10:09→17:47)
--- NOTE | 2018-07-28 12:47 | PN ---
DATE: 07/28/2018 LOCATION: The patient is in room #327, bed 1. REASON FOR CONSULTATION AND FOLLOWUP: Continuity of care, cardiac evaluation, deconditioning, history of venous thrombosis in the past. SUBJECTIVE: The patient denies any chest pain, shortness of breath, palpitation. The patient is having physical therapy without any cardiac symptoms. OBJECTIVE: VITAL SIGNS: Blood pressure 107/71, respirations 16, pulse 84, temperature 98. HEENT: Head is normocephalic. Eyes: Pupils normal. Conjunctivae slightly pale. NECK: JVP low. Carotids equal. THORAX: AP diameter normal. LUNGS: Clear. CARDIOVASCULAR: S1 and S2. ABDOMEN: Soft. No tenderness. No organomegaly. Bowel sounds normal. EXTREMITIES: No clubbing. No cyanosis. LABORATORY DATA: WBC 7.5, hemoglobin 10.2, hematocrit 32.5, platelets 390. Sodium 134, potassium 4.1, BUN is 13, creatinine is 0.7, calcium 8. DIAGNOSES: Mentally challenged patient, multiple gastric surgeries. Admitted with scrotal swelling, being followed by Dr. Alexander. No evidence of deep venous thrombosis. History of chronic obstruction of gastrointestinal tract, anemia, blood transfusions, history of pneumonia. PLAN: The patient will continue physical therapy for deconditioning and continued deep venous thrombosis prophylaxis. The patient continued Pradaxa for venous thrombosis in the past and we will continue physical therapy. Clinically, at this point, cardiac status is stable. We will continue Pradaxa 75 mg b.i.d. and we will follow with you. Eber Hassan MD
--- NOTE | 2018-07-28 23:07 | CP.PCM.PN ---
Subjective - Date & Time of Evaluation Date of Evaluation: 07/28/18 Time of Evaluation: 17:30 Objective - Vital Signs/Intake and Output Vital Signs (last 24 hours): Temp Pulse Resp BP Pulse Ox 97.5 F L 96 H 18 107/70 98 07/28/18 16:51 07/28/18 16:51 07/28/18 16:51 07/28/18 16:51 07/28/18 16:51 - Medications Medications: Current Medications Cholestyramine Resin (Questran) 4 gm PO DAILY [facility]; Protocol Last Admin: 07/28/18 10:09 Dose: 4 gm Dabigatran (Pradaxa) 75 mg PO BID [facility]; Protocol Last Admin: 07/28/18 17:44 Dose: 75 mg Diphenoxylate HCl/Atropine (Lomotil 0.025-2.5 Mg Tablet) 1 tab PO TID [facility] Last Admin: 07/28/18 17:47 Dose: 1 tab Mupirocin (Bactroban Ointment) 0 gm TOP BID [facility]; Protocol Last Admin: 07/28/18 17:43 Dose: 1 applic Nystatin (Nystop Topical Powder) 1 gm TOP BID [facility]; Protocol Last Admin: 07/28/18 17:44 Dose: 1 dose Pantoprazole Sodium (Protonix Ec Tab) 40 mg PO 0600,1600 [facility]; Protocol Last Admin: 07/28/18 17:45 Dose: 40 mg - Labs Labs: 07/28/18 08:00 07/28/18 08:00 Assessment and Plan - Assessment and Plan (Free Text) Assessment: p
--- NOTE | 2018-07-29 02:49 | PN ---
DATE: 07/28/2018 SUBJECTIVE: The patient is in bed, in no acute distress, nontoxic. No fevers, no chills. PHYSICAL EXAMINATION: VITAL SIGNS: Temperature is 99, blood pressure is 120/70, respiratory rate of 16. HEENT: Unremarkable. NECK: Supple. HEART: Normal S1, S2. LUNGS: Decreased breath sounds. ABDOMEN: Soft. LABORATORY EXAM: Reveals a white count of 7.5, hemoglobin of 10. Chemistry reveals a BUN of 13, creatinine of 0.7. Microbiology reveals stool for C. diff is reported to be no antigen, no toxin, negative for both. ASSESSMENT AND PLAN: A 48-year-old male who was seen earlier today, was admitted for acute testicular cellulitis and bowel obstruction, gastroesophageal reflux disease, who completed antibiotic therapy, now has episode of diarrhea. Clostridium difficile is negative and multiple times both toxin and antigen are negative, no need to have retesting with Clostridium difficile. The patient does not have pseudomembranous colitis. We will discontinue Flagyl and currently the recommendation would be p.o. vancomycin if he was to have seizures. Antwan Del Rosario MD
[2018-07-29] MEDS: Pantoprazole 40 mg EC Tab PO SCH ×2 (05:30→16:34)
[2018-07-29] MEDS: Nystatin 100,000 Units/gm Topical Pow(15 gm) TOP SCH ×2 (09:12→17:35)
[2018-07-29] MEDS: Mupirocin 2% Ointment 15 GM TUBE TOP SCH ×2 (09:13→17:39)
[2018-07-29] MEDS: Cholestyramine 4 gm/Pkt UD PO SCH (09:14)
[2018-07-29] MEDS: Atropine-Diphenoxylate 0.025-2.5 mg Tab PO SCH ×3 (09:16→17:38)
--- NOTE | 2018-07-29 14:56 | PN ---
DATE: 07/29/2018 SUBJECTIVE: The patient is in bed, in no acute distress, nontoxic. PHYSICAL EXAMINATION: VITAL SIGNS: On exam, temperature is 98, blood pressure is 120/70, respiratory rate of 18. HEENT: Examination of HEENT is unremarkable. NECK: Supple. LUNGS: Have decreased breath sounds. HEART: Normal S1, S2. ABDOMEN: Soft. LABORATORY DATA: Laboratory examination reveals a white count of 7.5, hemoglobin of 10. Chemistries are noted. ASSESSMENT AND PLAN: A 48-year-old, admitted with acute testicular cellulitis, bowel obstruction, gastroesophageal reflux disease, antibiotic therapy, episode of diarrhea. Clostridium difficile negative. Legs have improved. No evidence of infection at this time. Off of antibiotics. Antwan Del Rosario MD
[2018-07-29 16:42] VITALS: BP 119/75; PULSE 95; RESP 18; TEMP 98.4; O2SAT 96
--- NOTE | 2018-07-29 22:35 | PN ---
DATE: 07/29/2018 LOCATION: Patient in room 327, bed 1. REASON FOR CONSULTATION AND FOLLOWUP: Continuity of care, cardiac evaluation, deconditioning, history of venous thrombosis in the past. SUBJECTIVE: Patient lying flat in bed without chest pain, shortness of breath or palpitations. PHYSICAL EXAMINATION: VITAL SIGNS: Blood pressure 119/75, respirations 18, pulse 95, temperature 98.4. HEENT: Head is normocephalic. Eyes: Pupils normal. Conjunctivae slightly pale. NECK: JVP low. Carotids equal. THORAX: AP diameter normal. LUNGS: Clear. CARDIOVASCULAR: S1 and S2. ABDOMEN: Soft. No tenderness. No organomegaly. Bowel sounds normal. EXTREMITIES: No clubbing. No cyanosis. LABORATORY DATA: WBC 7.5, hemoglobin 10.2, hematocrit 32.5, platelets 390. Sodium 134, potassium 4.1, BUN 13, creatinine 0.7, calcium 8. DIAGNOSES: Mentally challenged patient, multiple gastric surgeries admitted with scrotal swelling being followed by Dr. Alexander, Urologist. History of deep venous thrombosis, history of chronic obstruction gastrointestinal tract, anemia, blood transfusion, history of pneumonia, deconditioning. PLAN: Patient will continue physical therapy, continue deep venous thrombosis prophylaxis. Patient on Pradaxa for venous thrombosis in the past, Pradaxa dose is 75 mg b.i.d. and continue physical therapy. We will follow. Eber Hassan MD
== END 2018-07-29 19:01 | disposition home or self-care (01) | DRG 603 ==
LOC: TRCU 15:32
PROVIDERS: ADMIT Internal Medicine; ATTEND Internal Medicine
PROC: F07Z9ZZ Gait Training/Functional Ambulation Treatment (ICD-10-PCS; principal; 2018-07-23)
PROC: F08Z4ZZ Home Management Treatment (ICD-10-PCS; 2018-07-23)
DX: L03.115 Cellulitis of right lower limb (principal); N49.8 Inflammatory disorders of other specified male genital organs; R64 Cachexia; D68.59 Other primary thrombophilia; K56.690 Other partial intestinal obstruction; K28.9 Gastrojejunal ulcer, unspecified as acute or chronic, without hemorrhage or perforation; K21.9 Gastro-esophageal reflux disease without esophagitis; R62.7 Adult failure to thrive; D50.9 Iron deficiency anemia, unspecified; F79 Unspecified intellectual disabilities; F41.9 Anxiety disorder, unspecified; Z91.14 Patient's other noncompliance with medication regimen; Z86.718 Personal history of other venous thrombosis and embolism; Z86.711 Personal history of pulmonary embolism; Z87.01 Personal history of pneumonia (recurrent); Z79.01 Long term (current) use of anticoagulants